=== PATIENT | female | born 1990 | race Caucasian/White ===

== ENCOUNTER 2023-01-26 13:54 | Outpatient (OUT) | payer OTHER, SELFPAY ==
[2023-01-26 14:52] LABS: HCG Quantitative 267 mIU/mL
== END 2023-01-26 13:55 | disposition home or self-care (01) ==
LOC: LAB 14:00
PROVIDERS: Visit Provider Obstetrics & Gynecology
DX: N92.6 Irregular menstruation, unspecified (principal)
CPT/HCPCS: 36415; 84702

== ENCOUNTER 2023-03-02 12:31 | Outpatient (OUT) | payer OTHER, SELFPAY ==
--- NOTE | 2023-03-02 12:40 | US_ITS ---
The [address] [address] Patient Name: CARMEN DE LA CRUZ MRN: [id number] date: 1990 Sex: F Assigned Patient Location: US Current Patient Location: US Accession/Order Number: [id number] Exam Date: 03/02/2023 12:40 Report Date: 03/02/2023 15:26 At the request of: EDGAR FERRELL Procedure: US OB transvaginal EXAMINATION: US OB transvaginal HISTORY: MISSED MENSES COMPARISON: No relevant comparison available. FINDINGS: GESTATIONAL SAC: Present and normal appearing. YOLK SAC: Present and normal appearing. POLE: Present and normal appearing. CARDIAC: Present. UTERUS: Normal size and appearance. OVARIES: Right: Normal. Left: Not seen. CERVIX: 4.1 cm in length and closed. CUL-DE-SAC: Normal. OTHER: None. AGE BY LMP: 8 weeks 1 day PHILIP BY LMP: 10/11/2023 AGE BY US CRL: 9 weeks 4 days PHILIP BY US CRL: 10/01/2023 US/US OB transvaginal IMPRESSION: 1. Single live intrauterine . Electronically authenticated by: TUSHAR WHITTAKER Date: 03/02/2023 15:26
== END 2023-03-02 12:32 | disposition home or self-care (01) ==
LOC: US 12:32
PROVIDERS: Visit Provider Obstetrics & Gynecology
DX: Z34.91 Encounter for supervision of normal pregnancy, unspecified, first trimester (principal); N92.6 Irregular menstruation, unspecified
CPT/HCPCS: 76817

== ENCOUNTER 2023-03-10 09:41 | Outpatient (OUT) | payer OTHER, SELFPAY ==
[2023-03-10 10:11] LABS: Estimated Average Glucose 91 mg/dL; Glycohemoglobin A1C 4.8 % (4.5-6.2)
[2023-03-10 10:33] LABS: Basophils Percent Auto 0.3 % (0.2-2.0); Eosinophils Absolute Auto 0.1 10^3/uL (0.0-0.7); Eosinophils Percent Auto 1.3 % (0.9-7.0); Hematocrit 39.1 % (36.0-48.0); Hemoglobin 12.9 g/dL (12.0-16.0); Immature Granulocytes Abs Auto 0.03 10^3/uL (0.00-0.03); Immature Granulocytes Pct Auto 0.4 % (0.0-0.5); Lymphocytes Absolute Auto 1.9 10^3/uL (1.2-3.8); Lymphocytes Percent Auto 24.3 % (20.5-60.0); Mean Corpuscular Hemoglobin 29.1 pg (26.7-34.0); Mean Corpuscular Volume 88.3 fL (81.0-99.0); Mean Platelet Volume 10.8 fL (9.5-13.5); Monocytes Absolute Auto 0.5 10^3/uL (0.3-0.8); Monocytes Percent Auto 6.6 % (1.7-12.0); Neutrophils Absolute Auto 5.3 10^3/uL (1.4-6.5); Neutrophils Percent Auto 67.1 % (43.0-75.0); Platelet Count 214 10^3/uL (150-450); Red Blood Count 4.43 10^6/uL (4.20-5.40); Red Cell Distribution Width 13.5 % (11.0-15.0); White Blood Count 7.9 10^3/uL (4.0-11.0)
[2023-03-10 10:36] LABS: Thyroid Stimulating Hormone 0.546 uIU/mL (0.358-3.740)
[2023-03-11 05:07] LABS: HCV Ab Non Reactive (Non Reactive); HIV Ab/p24 Ag Screen Non Reactive (Non Reactive); Rubella Antibodies, IgG 2.69 index (Immune >0.99)
[2023-03-11 06:12] LABS: HBsAg Screen Negative (Negative)
[2023-03-11 10:08] LABS: Rapid Plasma Reagin, Quant Non Reactive (NonRea<1:1)
== END 2023-03-10 09:42 | disposition home or self-care (01) ==
LOC: LAB 09:41
PROVIDERS: Visit Provider Obstetrics & Gynecology
DX: N92.6 Irregular menstruation, unspecified (principal)
CPT/HCPCS: 36415; 82306; 83036; 84443; 85025; 86592; 86762; 86803; 86850; 86900; 86901; 87086; 87150; 87186; 87340; 87389

== ENCOUNTER 2023-03-17 08:57 | Outpatient (OUT) | payer OTHER, SELFPAY | END 2023-03-17 08:58 | disposition home or self-care (01) | LOC: LAB 08:57 | PROVIDERS: Visit Provider Obstetrics & Gynecology | DX: N92.6 Irregular menstruation, unspecified (principal) | CPT/HCPCS: 87086 ==

== ENCOUNTER 2023-04-03 11:58 | Outpatient (OUT) | payer OTHER, SELFPAY ==
[2023-04-06 12:10] LABS: Calcitriol(1,25 di-OH Vit D) 88.7 pg/mL (24.8-81.5)
== END 2023-04-03 11:59 | disposition home or self-care (01) ==
LOC: LAB 12:00
PROVIDERS: Visit Provider Obstetrics & Gynecology
DX: Z01.419 Encounter for gynecological examination (general) (routine) without abnormal findings (principal); D50.8 Other iron deficiency anemias
CPT/HCPCS: 36415; 82652; 82728; 87624; G0145

== ENCOUNTER 2023-04-03 20:37 | Outpatient (REF) | payer OTHER, SELFPAY ==
[2023-04-06 15:10] LABS: Age Gdln ACOG Testing Note (.); HPV Aptima Negative (Negative); IGP, Aptima HPV, rfx 16/18,45 Note (.)
== END 2023-04-03 20:38 | disposition home or self-care (01) ==
LOC: LAB 20:37
PROVIDERS: Visit Provider Obstetrics & Gynecology
DX: Z01.419 Encounter for gynecological examination (general) (routine) without abnormal findings (principal)
CPT/HCPCS: G0145

== ENCOUNTER 2023-04-28 13:17 | Outpatient (OUT) | payer OTHER, SELFPAY | END 2023-04-28 13:18 | disposition home or self-care (01) | LOC: LAB 13:17 | PROVIDERS: Visit Provider Obstetrics & Gynecology | DX: D50.8 Other iron deficiency anemias (principal) | CPT/HCPCS: 36415; 82652 ==

== ENCOUNTER 2023-05-15 10:17 | Outpatient (OUT) | payer OTHER, SELFPAY ==
--- NOTE | 2023-05-15 10:20 | US_ITS ---
[address] [address] Patient Name: CARMEN DE LA CRUZ MRN: [id number] date: 1990 Sex: F Assigned Patient Location: US Current Patient Location: US Accession/Order Number: [id number] Exam Date: 05/15/2023 10:21 Report Date: 05/15/2023 17:14 At the request of: EDGAR FERRELL Procedure: US OB anatomy EXAMINATION: US OB anatomy, US OB cervical length HISTORY: ANATOMY COMPARISON: No relevant comparison available. TECHNIQUE: Transabdominal sonographic examination was performed for obstetrical and evaluation. FINDINGS: Number: 1 Heart Rate: 143.0 bpm H.B. /min Amniotic Fluid Volume: Subjectively normal position: Cephalic presentation, longitudinal lie Placental Location: ANTERIOR, the placental edge is 7.1 cm from the internal os Cervix Length: 3.7 cm, small amount of fluid in the endocervical canal measuring up to 2 mm Normal anatomy: Lateral ventricles, cerebellum, posterior fossa, nose, lips, orbits, four-chamber heart, RVOT, LVOT, diaphragm, stomach, kidneys, abdominal portions, bladder, umbilical arteries, spine, extremities, 2 umbilical arteries BIOMETRY: BPD: 4.5 cm 19 weeks 4 days , 25% HC: 17.6 cm 20 weeks 1 days, 41% AC: 14.5 cm 19 weeks 6 days, 34% FL: 3.0 cm 19 weeks 3 days , 17% EFW:305.8 grams; 11 ounces, 21% FL/AC: 20.9 FL/BPD: 67.6 HC/AC: 1.2 GESTATIONAL AGE: Age by EDC: 20 weeks 1 days Age by current US: 19 weeks 5 days PHILIP by current US: 10/04/2023 PHILIP by EDC: 10/01/2023 US/US OB anatomy IMPRESSION: Normal anatomy scan Cervix measures 3.7 cm in length with a small amount of fluid in the endocervical canal *Reference: [employer] Practice Guideline for the performance of Obstetric Ultrasound Examinations, April 09, 2007. Electronically authenticated by: MARTY KO Date: 05/15/2023 17:14
--- NOTE | 2023-05-15 10:20 | US_ITS ---
[address] [address] Patient Name: CARMEN DE LA CRUZ MRN: [id number] date: 1990 Sex: F Assigned Patient Location: US Current Patient Location: Accession/Order Number: [id number] Exam Date: 05/15/2023 10:20 Report Date: 05/15/2023 17:14 At the request of: EDGAR FERRELL Procedure: US OB cervical length EXAMINATION: US OB anatomy, US OB cervical length HISTORY: ANATOMY COMPARISON: No relevant comparison available. TECHNIQUE: Transabdominal sonographic examination was performed for obstetrical and evaluation. FINDINGS: Number: 1 Heart Rate: 143.0 bpm H.B. /min Amniotic Fluid Volume: Subjectively normal position: Cephalic presentation, longitudinal lie Placental Location: ANTERIOR, the placental edge is 7.1 cm from the internal os Cervix Length: 3.7 cm, small amount of fluid in the endocervical canal measuring up to 2 mm Normal anatomy: Lateral ventricles, cerebellum, posterior fossa, nose, lips, orbits, four-chamber heart, RVOT, LVOT, diaphragm, stomach, kidneys, abdominal portions, bladder, umbilical arteries, spine, extremities, 2 umbilical arteries BIOMETRY: BPD: 4.5 cm 19 weeks 4 days , 25% HC: 17.6 cm 20 weeks 1 days, 41% AC: 14.5 cm 19 weeks 6 days, 34% FL: 3.0 cm 19 weeks 3 days , 17% EFW:305.8 grams; 11 ounces, 21% FL/AC: 20.9 FL/BPD: 67.6 HC/AC: 1.2 GESTATIONAL AGE: Age by EDC: 20 weeks 1 days Age by current US: 19 weeks 5 days PHILIP by current US: 10/04/2023 PHILIP by EDC: 10/01/2023 US/US OB cervical length IMPRESSION: Normal anatomy scan Cervix measures 3.7 cm in length with a small amount of fluid in the endocervical canal *Reference: [employer] Practice Guideline for the performance of Obstetric Ultrasound Examinations, April 09, 2007. Electronically authenticated by: MARTY KO Date: 05/15/2023 17:14
== END 2023-05-15 10:18 | disposition home or self-care (01) ==
LOC: US 10:18
PROVIDERS: Visit Provider Obstetrics & Gynecology
DX: Z34.92 Encounter for supervision of normal pregnancy, unspecified, second trimester (principal); Z3A.20 20 weeks gestation of pregnancy
CPT/HCPCS: 76805; 76817

== ENCOUNTER 2023-06-19 09:09 | Outpatient (OUT) | payer OTHER, SELFPAY ==
--- NOTE | 2023-06-19 09:10 | US_ITS ---
[address] [address] Patient Name: CRAMEN DE LA CRUZ MRN: [id number] date: 1990 Sex: F Assigned Patient Location: US Current Patient Location: US Accession/Order Number: [id number] Exam Date: 06/19/2023 09:11 Report Date: 06/19/2023 10:35 At the request of: EDGAR FERRELL Procedure: US OB growth PROCEDURE: US OB growth HISTORY: SIZE INCONSISTENT WITH DATES COMPARISON: None. TECHNIQUE: Transabdominal sonographic examination was performed for obstetrical and evaluation. FINDINGS: Number: 1 Heart Rate: 145.0 bpm H.B. /min Amniotic Fluid Volume: 15.7 cm, normal. Largest fluid pocket 4.2 cm Placental Location: Anterior Cervix Length: Not measured BIOMETRY: BPD: 6.0 cm 24 weeks 3 days , 17% HC: 23.0 cm 25 weeks 0 days , 24% AC:20.1 cm 24 weeks 5 days , 29% FL: 4.4 cm 24 weeks 4 days , 19% EFW: 720.6 grams , 1 lb. 9 oz., 21% FL/AC: 21.9 FL/BPD: 73.9 HC/AC: 1.1 GESTATIONAL AGE: Age by EDC: 25 weeks 1 days PHILIP by EDC: 10/01/2023 Ultrasound Age: 24 weeks 5 days Ultrasound PHILIP: 10/04/2023 US/US OB growth IMPRESSION: Normal interval growth *Reference: [employer] Practice Guideline for the performance of Obstetric Ultrasound Examinations, April 09, 2007. Electronically authenticated by: MARTY KO Date: 06/19/2023 10:35
== END 2023-06-19 09:10 | disposition home or self-care (01) ==
LOC: US 09:09
PROVIDERS: Visit Provider Obstetrics & Gynecology
DX: O26.849 Uterine size-date discrepancy, unspecified trimester (principal); Z3A.25 25 weeks gestation of pregnancy
CPT/HCPCS: 76816

== ENCOUNTER 2023-06-28 17:10 | Observation (INO) | payer OTHER, SELFPAY ==
[2023-06-28 17:25] VITALS: BP 135/80; PULSE 107; RESP 18; TEMP 37.1
[2023-06-28 17:45] LABS: Bilirubin Urine NEGATIVE (NEGATIVE); Blood Urine NEGATIVE (NEGATIVE); Clarity Urine CLEAR (CLEAR); Color Urine LT. YELLOW (YELLOW); Glucose Urine UA NEGATIVE (NEGATIVE); Ketones Urine >=80 mg/dL (NEGATIVE); Leukocyte Esterase Urine NEGATIVE (NEGATIVE); Nitrite Urine NEGATIVE (NEGATIVE); Protein Urine NEGATIVE (NEG/TRACE); Urobilinogen Urine 0.2 EU/dL (0.2-1.0)
[2023-06-28 17:51] LABS: Urine Microscopic Indicated NO
[2023-06-28 18:35] LABS: Basophils Percent Auto 0.2 % (0.2-2.0); Eosinophils Absolute Auto 0.2 10^3/uL (0.0-0.7); Eosinophils Percent Auto 1.4 % (0.9-7.0); Hematocrit 33.9 % (36.0-48.0); Hemoglobin 11.1 g/dL (12.0-16.0); Immature Granulocytes Abs Auto 0.05 10^3/uL (0.00-0.03); Immature Granulocytes Pct Auto 0.4 % (0.0-0.5); Lymphocytes Absolute Auto 1.5 10^3/uL (1.2-3.8); Lymphocytes Percent Auto 10.5 % (20.5-60.0); Mean Corpuscular HGB Conc 32.7 g/dL (29.9-35.2); Mean Corpuscular Hemoglobin 29.1 pg (26.7-34.0); Mean Platelet Volume 11.4 fL (9.5-13.5); Monocytes Absolute Auto 0.9 10^3/uL (0.3-0.8); Monocytes Percent Auto 6.6 % (1.7-12.0); Neutrophils Absolute Auto 11.2 10^3/uL (1.4-6.5); Neutrophils Percent Auto 80.9 % (43.0-75.0); Platelet Count 184 10^3/uL (150-450); Red Blood Count 3.81 10^6/uL (4.20-5.40); Red Cell Distribution Width 13.1 % (11.0-15.0); White Blood Count 13.9 10^3/uL (4.0-11.0)
[2023-06-28] MEDS: 0.9 % SODIUM CHLORIDE 500 ML IV (18:42)
[2023-06-28] MEDS: ONDANSETRON PF 4 MG/2 ML VIAL IV (18:44)
[2023-06-28 18:49] LABS: Alanine Aminotransferase 20 U/L (14-59); Albumin Globulin Ratio 0.7; Albumin Level 2.5 g/dL (3.4-5.0); Alkaline Phosphatase 104 U/L (46-116); Anion Gap 13.6; Aspartate Amino Transferase 17 U/L (15-37); Bilirubin Total 0.6 mg/dL (0.2-1.0); Calcium 8.9 mg/dL (8.5-10.1); Carbon Dioxide 23.4 mmol/L (21.0-32.0); Chloride 105 mmol/L (98-107); Estimated GFR (African America >60 (>=60); Estimated GFR (Non-African Ame >60 (>=60); Globulin 3.8 g/dL; Glucose 84 mg/dL (74-106); Sodium 139 mmol/L (136-145); Total Protein 6.3 g/dL (6.4-8.2)
[2023-06-28] MEDS: HYDROCODONE/ACET 5-325 MG TABLET 2 TAB PO (18:55)
[2023-06-28] MEDS: DOCUSATE SODIUM 100 MG CAPSULE PO (18:55)
[2023-06-28] MEDS: 0.9 % SODIUM CHLORIDE 1,000 ML 150 ML IV (19:15)
[2023-06-28] MEDS: POTASSIUM CHLORIDE 10 MEQ ER TABLET 40 MEQ PO (20:33)
[2023-06-28] MEDS: POTASSIUM CHLORIDE IN WATER 10 MEQ/100 ML PIGGYBACK 100 MEQ IV ×3 (20:33→23:37)
[2023-06-28 22:34] VITALS: BP 117/64; PULSE 88
[2023-06-28 22:43] VITALS: RESP 16
[2023-06-29] VITALS (11 sets, daily range): BP systolic 103–138; BP diastolic 61–82; PULSE 86–124; RESP 18–32; TEMP 35.9–36.7; O2SAT 92–97
--- NOTE | 2023-06-29 | FL_ITS ---
[address] [address] Patient Name: CARMEN DE LA CRUZ MRN: [id number] date: 1990 Sex: F Assigned Patient Location: [facility] Current Patient Location: Accession/Order Number: [id number] Exam Date: 06/29/2023 16:30 Report Date: 06/30/2023 11:16 At the request of: EDGAR FERRELL Procedure: FL fluoroscopy <1hr NON-READ EXAM: FL fluoroscopy <1hr NON-READ HISTORY: TECHNIQUE: FINDINGS: Please see Operative Report. Electronically authenticated by: RADIOLOGIST NO Date: 06/30/2023 11:16
[2023-06-29] MEDS: POTASSIUM CHLORIDE IN WATER 10 MEQ/100 ML PIGGYBACK 100 MEQ IV (00:37)
[2023-06-29] MEDS: ONDANSETRON PF 4 MG/2 ML VIAL IV (01:11)
[2023-06-29] MEDS: HYDROCODONE/ACET 5-325 MG TABLET 1 TAB PO ×3 (01:11→13:30)
[2023-06-29] MEDS: 0.9 % SODIUM CHLORIDE 1,000 ML 150 ML IV ×2 (02:01→08:38)
[2023-06-29] MEDS: HYDROMORPHONE HCL 0.5 MG/0.5 ML SYRINGE 1 MG IV (02:27)
--- NOTE | 2023-06-29 07:28 | W.PC.ACHO ---
Registration Status: REG OUT Primary Language: Preferred Language: Active Medications Generic Name Dose Route Start Last Admin Trade Name Freq PRN Reason Stop Dose Admin Hydrocodone Bitart/Acetaminophen 1 tab 06/28/23 18:33 06/29/23 06:32 Hydrocodone/Acet 5-325 Mg Tablet PO 1 tab Q6H PRN Administration Pain Docusate Sodium 100 mg 06/28/23 18:04 06/28/23 18:55 Docusate Sodium 100 Mg Capsule PO 100 mg BID PRN Administration Constipation Hydromorphone HCl 1 mg 06/29/23 02:18 06/29/23 02:27 Hydromorphone Hcl 0.5 Mg/0.5 Ml Syringe IV 1 mg Q3H PRN Administration Pain Scale 7-10 Sodium Chloride 1,000 mls @ 150 mls/hr 06/28/23 18:00 06/29/23 02:01 Sodium Chloride 0.9% 1,000 Ml IV 150 mls/hr .[id number] NAY Administration Ondansetron HCl 4 mg 06/28/23 18:04 06/29/23 01:11 Ondansetron Pf 4 Mg/2 Ml Vial IV 4 mg Q6H PRN Administration Nausea Diet Category Date Time Status Regular Consistency Diet Diet 06/28/23 17:59 Active Consults Category Date Time Status Consult to Urology Routine Cons 06/29/23 08:00 Ordered IV Insertion/Site Date of IV Line Insertion [20g 06/28/23 left Antecubital] IV Insertion Time [20g left 18:35 Antecubital] Respiratory Oxygen Delivery Method Room Air Cardiology Heart Sounds Strong,Regular Renal Bladder Pattern Continent
--- NOTE | 2023-06-29 08:00 | US_ITS ---
The [address] [address] Patient Name: CARMEN DE LA CRUZ MRN: [id number] date: 1990 Sex: F Assigned Patient Location: [facility] Current Patient Location: [facility] Accession/Order Number: [id number] Exam Date: 06/29/2023 07:25 Report Date: 06/29/2023 10:48 At the request of: EDGAR FERRELL Procedure: US renal BI EXAMINATION: US renal BI HISTORY: Kidney stones ; right flank pain; 26 weeks COMPARISON: No relevant comparison available. TECHNIQUE: Ultrasound examination was performed of the kidneys and urinary bladder. FINDINGS: RIGHT KIDNEY: Dilated renal pelvis and calyces. 5 mm nonobstructing stone within inferior pole. Kidney: 13.2 x 6.7 x 6.3 cm LEFT KIDNEY: Borderline prominent renal pelvis without significant dilation of the calyces. No mass or calculi. Normal renal cortical parenchymal echogenicity. Color Doppler demonstrates blood flow within the kidney. Kidney: 11.8 x 5.3 x 6.1 cm BLADDER: No visible wall thickening, mass, or calculi. URETERAL JETS: Present on left; no right ureteral jet. US/US renal BI IMPRESSION: 1. Moderate right hydronephrosis and no right ureteral jet within the urinary bladder during 5 minutes of observation; obstructing ureteral stone versus hydronephrosis secondary to . Electronically authenticated by: TUSHAR WHITTAKER Date: 06/29/2023 10:48
--- OUTSIDE RECORDS SUMMARY | 2023-06-29 10:09 | XMS_ITS | CCD ---
Author Name Unknown Address [address] [place] [id number] Organization [facility] Care Team Providers Care [employer] Worker Name Role Phone DO Sallie Magaña Primary Care Provider DO Sallie Magaña Attending Provider Hilario Reynolds Unavailable DO Sallie Magaña Primary Care Provider MD Hilario Reynolds Attending Provider DO Sarmad Luque Emergency Provider [phone] DO Sallie Magaña Primary Care Provider [phone] DO Sallie Magaña Attending Provider DO Sallie Magaña Primary Care Provider DO Sallie Magaña Attending Provider MD Latrice Sepulveda Attending Provider BRANDON CAMARGO Attending Unavailable DO Emerald Martinez Admit Provider DO Emerald Martinez Attending Provider Sallie Magaña Primary Care Unavailable Latrice Sepulveda Admitting Unavailable Latrice Sepulveda Attending Unavailable Sallie Magaña Primary Care Unavailable Sallie Magaña Attending Unavailable Sallie Magaña Admitting Unavailable Hilario Reynolds Admitting Unavailable Hilario Reynolds Attending Unavailable Sallie Magaña Primary Care Unavailable Sallie Magaña Primary Care Unavailable Sallie Magaña Attending Unavailable Sallie Magaña Admitting Unavailable Sallie Magaña Primary Care Unavailable Emerald Martinez Admitting Unavailable Emerald Martinez Attending Unavailable Sallie Magaña Primary Care Unavailable Sarmad Luque Admitting Unavailable Sarmad Luque Attending Unavailable Allergies Allergy Classification Reported Allergen(s) Allergy Type Date of Onset Reaction(s) Facility (7 sources) Dicyclomine; Translations: [dicyclomine] Drug Allergy 0 Migraine, Unknown [facility] (6 sources) Fish Oils; Translations: [fish oil] Drug Allergy 0 Hives [facility] (6 sources) Gluten; Translations: [gluten] Propensity to adverse reactions 0 Nausea [facility] (1 source) DHA Propensity to adverse reactions Unknown [employer] Other Medications Current Medications Medication Drug Class(es) Dates Sig (Normalized) Sig (Original) 3 ML semaglutide 1.34 MG/ML Pen Injector [Ozempic] (1 source) Start: 11-08-2022 inject 0.5 mg by subcutaneous injection every week Ozempic (1 MG/DOSE) 4 MG/3ML 36 clicks/ 0.5 mg as directed Subcutaneous weekly for 60 days November, Active Albuterol (5 sources) beta2-Adrenergic Agonist Start: 09-21-2018 Albuterol Sulfate Active 2 INH INHALATION EVERY 4-6 HOURS September 20, 2018 11:00pm Start: 09-21-2018 Albuterol Sulf ate Active 2 INH INHALATION EVERY 4-6 HOURS September 21, 2018 12:00am cholecalciferol 0.025 mg oral capsule (5 sources) Vitamin D Start: 01-24-2023 take 1 capsule by mouth once daily Cholecalciferol (Vitamin D3) (Vitamin D3) 25 mcg (1,000 unit) Capsule Active 25 MCG PO Daily January 23, 2023 11:00pm take 1 tablet by sary th every twenty-four hours Vitamin D 50 MCG (2000 UT) 1 tablet Orally Once a day Active Semaglutide (4 sources) Start: 01-24-2023 inject 1 mg by subcutaneous injection every week Semaglutide (Ozempic) 1 mg/dose (4 mg/3 mL) pen injector Active 1 MG SUBCUT every week January 23, 2023 11:00pm Start: 01-24-2023 inject 1 mg by subcu taneous injection every week Semaglutide (Ozempic) 1 mg/dose (4 mg/3 mL) pen injector Active 1 MG SUBCUT every week January 24, 2023 12:00am Completed/Discontinued Medications Medication Drug Class(es) Dates Sig (Normalized) Sig (Original) ibuprofen 800 mg oral tablet (10 sources) Nonsteroidal Anti-inflammatory Drug Start: 05-05-2019 take 400 mg by mouth three times daily Ibuprofen Active 400 MG PO Three times daily May 05, 2019 4:22am Start: 09-21-2018 End: 05-05-2019 take 800 mg by mouth three times daily Ibuprofen Discontinued 800 MG PO Three times daily September 20, 2018 11:00pm May 05, 2019 4:22am Niacin (1 source) Nicotinic Acid Niacin Not-Takin g oseltamivir 75 mg oral capsule (5 sources) Neuraminidase Inhibitor Start: 09-22-19 End: 09-29-19 take 1 capsule by mouth once daily Oseltamivir (Tamiflu) 75 mg capsule Discontinued 75 MG PO Daily 7 September 20, 2018 11:00pm September 27, 2018 11:03pm sertraline 50 mg oral tablet (5 sources) Serotonin Reuptake Inhibitor Start: 05-01-20 End: 01-25-20 take 1 tablet by mouth once daily Sertraline (Zoloft) 50 mg Tablet Discontinued 50 MG PO Daily April 30, 2020 11:00pm January 24, 2023 9:15am Problems Active Problems Problem Classification Problem Date Documented Date Episodic/Chronic Anxiety disorders (2 sources) Anxiety; Translations: [Anxiety disorder, unspecified] Chronic Asthma (2 sources) Asthma; Translations: [Unspecified asthma, uncomplicated] Chronic Calculus of urinary tract (9 sources) Kidney stone; Translations: [Calculus of kidney] Onset: 06-26-2023 Episodic Disorders of lipid metabolism (2 sources) Mixed hyperlipidemia; Translations: [Mixed hyperlipidemia] Chronic E Codes: Fall (5 sources) Fall; Translations: [Unspecified fall, initial encounter] 02-13-2019 Episodic Nutritional deficiencies (1 source) Vitamin D deficiency, unspecified; Translations: [Vitamin D deficiency, unspecified] Onset: 06-06-2023 Chronic Other diseases of kidney and ureters (2 sources) Hydronephrosis; Translations: [Hydronephrosis with renal and ureteral calculous obstruction] 05-05-2019 Episodic Other diseases of kidney and ureters (4 sources) Hydronephrosis with renal and ureteral calculous obstruction; Translations: [Hydronephrosis with urinary obstruction due to ureteral calculus] 05-05-2019 Episodic Other diseases of kidney and ureters (2 sources) Unspecified hydronephrosis; Translations: [Hydronephrosis] Onset: 06-26-2023 06-28-2023 Episodic Other and delivery including normal (4 sources) test positive; Translations: [Encounter for test, result positive] 01-24-2023 Episodic Residual codes; unclassified (5 sources) Pain; Translations: [Pain, unspecified] 05-05-2019 Episodic Residual codes; unclassified (1 source) Gestation period, 26 weeks; Translations: [26 weeks gestation of ] 06-27-2023 Episodic Residual codes; unclassified (1 source) 26 weeks gestation of ; Translations: [ state, incidental] 06-28-2023 Episodic Superficial injury; contusion (10 sources) Contusion of foot; Translations: [Contusion of unspecified foot, initial encounter] 05-01-2020 Episodic Unclassified (1 source) 26 weeks gestation of ; Translations: [26 weeks gestation of ] Onset: 06-26-2023 Unclassified (1 source) Dietary counseling and surveillance; Translations: [Dietary counseling and surveillance] Onset: 12-20-2022 Unclassified (1 source) Encounter for general adult medical examination without abnormal findings; Translations: [Encounter for general adult medical examination without abnormal findings] Onset: 10-27-2022 Urinary tract infections (5 sources) Urinary tract infectious disease; Translations: [Urinary tract infection, site not specified] 05-05-2019 Episodic Past or Other Problems Problem Classification Problem Date Documented Date Episodic/Chronic Abdominal pain (1 source) Unspecified abdominal pain; Translations: [Unspecified abdominal pain] Onset: 01-24-2023 Episodic Other hematologic conditions (1 source) Elevated erythrocyte sedimentation rate; Translations: [Elevated erythrocyte sedimentation rate] Onset: 10-27-2022 Episodic Other nutritional; endocrine; and metabolic disorders (2 sources) Abnormal weight gain; Translations: [Abnormal weight gain] Onset: 10-27-2022 Episodic Results Test Name Value Interpretation Reference Range Facility Consultation Noteon 12-20-20 23 Consultation Note [id number] Normal [facility] Complete Blood Count Auto Di ffon 06-27-2023 Basophils (Bld) [#/Vol] 0.0 10*3/uL Normal 0.0-0.2 [facility] Comment on above: Result Comment: PERF ORMED BY: [facility] [address] [place] [address] PATHOLOGIST MONITORING MANAGER JERRY CASTRO M.D. Performed By: #### C SAPPHIRE, CMP ####[place] [id number] [facility] Basophils/100 WBC (Bld) 0.2 % Normal . [facility] Comment on above: Performed By: #### C SAPPHIRE, CMP ####[place] [id number] [facility] Eosinophils (Bld) [#/Vol] 0.0 10*3/uL Normal 0.0-0.45 [facility] Comment on above: Performed By: #### C SAPPHIRE, CMP ####[place] [id number] [facility] Eosinophils/100 WBC (Bld) 0.2 % Normal . [facility] Comment on above: Performed By: #### C SAPPHIRE, CMP ####[place] [id number] [facility] Erythrocyte distribution width (RBC) [Ratio] 13.4 % Normal 11.9-15.3 [facility] Comment on above: Performed By: #### C BC, CMP ####[place] [id number] [facility] Hematocrit (Bld) [Volume fraction] 33.5 % Low 34.0-46.4 [facility] Comment on above: Performed By: #### C BC, CMP ####[place] [id number] [facility] Hemoglobin (Bld) [Mass/Vol] 11.3 g/dL Low 11.8-15.4 [facility] Comment on above: Performed By: #### C BC, CMP ####[address] Lymphocytes (Bld) [#/Vol] 1.1 10*3/uL Normal 1.00-4.8 [facility] Comment on above: Performed By: #### C BC, CMP ####[place] [id number] [facility] Lymphocytes/100 WBC (Bld) 8.3 % Normal . [facility] Comment on above: Performed By: #### C BC, CMP ####[address] MCH (RBC) [Entitic mass] 29.0 pg Normal 24.7-34.3 [facility] Comment on above: Performed By: #### C BC, CMP ####[address] MCV (RBC) [Entitic vol] 86.2 fL Normal 80-100 [facility] Comment on above: Performed By: #### C BC, CMP ####[address] Mean Corpuscular HGB Conc 33.7 g/dL Normal 32.0-35.0 [facility] Comment on above: Performed By: #### C BC, CMP ####[address] Monocytes (Bld) [#/Vol] 0.6 10*3/uL Normal 0.0-0.8 [facility] Comment on above: Performed By: #### C BC, CMP ####[place] [id number] [facility] Monocytes/100 WBC (Bld) 4.2 % Normal . [facility] Comment on above: Performed By: #### C BC, CMP ####[address] Neutrophils (Bld) [#/Vol] 11.9 10*3/uL High 1.8-7.7 [facility] Comment on above: Performed By: #### C SAPPHIRE, CMP ####[place] [id number] [facility] Neutrophils/100 WBC (Bld) 87.1 % Normal . [facility] Comment on above: Performed By: #### C BC, CMP ####[address] [address] [facility] NRBC% 0.1 /100{WBC} Normal 0-0.5 [facility] Comment on above: Performed By: #### C SAPPHIRE, CMP ####[address] [address] [facility] Platelet mean volume (Bld) [Entitic vol] 9.8 fL Normal 6.3-10.7 [facility] Comment on above: Performed By: #### C SAPPHIRE, CMP ####[place] [id number] [facility] Platelets (Bld) [#/Vol] 174 10*3/uL Normal 150-450 [facility] Comment on above: Performed By: #### C SAPPHIER, CMP ####[place] [id number] [facility] RBC (Bld) [#/Vol] 3.89 10*6/uL Normal 3.60-5.00 [facility] Comment on above: Performed By: #### C SAPPHIRE, CMP ####[address] [address] [facility] WBC (Bld) [#/Vol] 13.6 10*3/uL High 3.8-11.6 [facility] Comment on above: Performed By: #### C SAPPHIRE, CMP ####[place] [id number] [facility] Comprehensive Metabolic Pane mauricio 06-27-2023 Albumin [Mass/Vol] 3.4 g/dL Low 3.5-5.7 [facility] Comment on above: Performed By: #### C BC, CMP ####[place] [id number] [facility] Albumin/Globulin [Mass ratio] 1.6 {ratio} Normal [facility] Comment on above: Performed By: #### C BC, CMP ####[place] [id number] [place] [address] [facility] ALP [Catalytic activity/Vol] 88 U/L Normal 34-104 [facility] Comment on above: Performed By: #### C BC, CMP ####[place] [id number] [place] [address] [facility] ALT [Catalytic activity/Vol] 17 U/L Normal 7-52 [facility] Comment on above: Performed By: #### C BC, CMP ####[place] [id number] [place] [address] [facility] Anion gap [Moles/Vol] 12.5 mmol/L Normal 6.0-15.0 [facility] Comment on above: Performed By: #### C BC, CMP ####[address] [address] [facility] AST [Catalytic activity/Vol] 14 U/L Normal 13-39 [facility] Comment on above: Performed By: #### C BC, CMP ####[address] [address] [facility] Bilirubin [Mass/Vol] 0.3 mg/dL Normal 0.3-1.0 [facility] Comment on above: Performed By: #### C BC, CMP ####[address] [address] [facility] Calcium [Mass/Vol] 8.2 mg/dL Low 8.6-10.3 [facility] Comment on above: Performed By: #### C BC, CMP ####[address] [address] [facility] Chloride [Moles/Vol] 105 mmol/L Normal 98-107 [facility] Comment on above: Performed By: #### C BC, CMP ####[address] [address] [facility] CO2 [Moles/Vol] 23.8 mmol/L Normal 21.0-31.0 [facility] Comment on above: Performed By: #### C BC, CMP ####[place] [address] [place] [id number] [facility] Creatinine [Mass/Vol] 0.52 mg/dL Low 0.60-1.20 [facility] Comment on above: Performed By: #### C BC, CMP ####[place] [id number] [place] [id number] [place] Creatinine Clr Calc Pharmacy 138.60 [facility] Comment on above: Result Comment: PERF ORMED BY: [facility] [address] [place] [address] PATHOLOGIST MONITORING MANAGER JERRY CASTRO M.D. Performed By: #### C BC, CMP ####[place] [id number] [place] [id number] [facility] GFR/1.73 sq M.predicted MDRD (S/P/Bld) [Vol rate/Area] mL/min/{1.73_m2} [facility] Comment on above: Performed By: #### C BC, CMP ####[place] [id number] [facility] Globulin (S) [Mass/Vol] 2.1 g/dL [facility] Comment on above: Performed By: #### C BC, CMP ####[place] [id number] [facility] Glucose [Mass/Vol] 124 mg/dL High 70-100 [facility] Comment on above: Result Comment: [place] Glucose Reference Range is dependent on time and content of last meal. Glucose of more than 200 mg/dL in a nonstressed, ambulatory subject supports the diagnosis of Diabetes Mellitus. ADA recommended reference range Performed By: #### C BC, CMP ####[place] [id number] [facility] Potassium [Moles/Vol] 3.3 mmol/L Low 3.5-5.1 [facility] Comment on above: Performed By: #### C BC, CMP ####[address] [address] [facility] Protein [Mass/Vol] 5.5 g/dL Low 6.4-8.9 [facility] Comment on above: Performed By: #### C BC, CMP ####[place] [address] [place] [id number] [facility] Sodium [Moles/Vol] 138 mmol/L Normal 136-145 [facility] Comment on above: Performed By: #### C BC, CMP ####[facility] [place] [phone] [facility] Urea nitrogen [Mass/Vol] 6 mg/dL Low 7-25 [facility] Comment on above: Performed By: #### C BC, CMP ####[facility] [place] [phone] [facility] US renal BIon 06-27-2023 US renal BI [facility] [address] [place] [address] [place] [address] Ultrasound Report Signed Patient: Elyssa Smith MR#: [id number] : 1990 Acct:[id number] Age/Sex: 33 / F ADM Date: 06/27/23 Loc: Room: [address] [place] [address] Type: ADM INOo Attending Dr: Emerald Martinez DO Ordering Provider: Emerald Martinez DO Date of Service: 06/26/23 US/US renal BI: back pain Copies to: Emerald Martinez DO BILATERAL RENAL AND BLADDER ULTRASOUND CLINICAL HISTORY: patient with right back pain. History of kidney stones. COMPARISON: 01/24/2023 Estimation of renal size is approximately 12.7 cm on the right and 11.41cm on the left. No shadowing calculi were identified. There is moderate right hydronephrosis. No hydronephrosis is seen on the left. No renal mass lesions were imaged. There is no perinephric fluid. The urinary bladder is not well distended with a volume of 30 mL. No contour or intraluminal abnormalities are seen. Only a left ureteral jet is seen. US/US renal BI IMPRESSION: MODERATE RIGHT HYDRONEPHROSIS. Impression dictated by: Kathleen Vaca M.D.06/27/2023 7:44 AM Dictation Location: [place] [address] Tech: Eryn Welsh Transcribed By: SILVINA 06/27/2344 Dictated By: Kathleen Vaca MD 06/27/2342 Signed By: 06/27/23743 Normal [facility] Alanine aminotransferase [En zymatic activity/volume] in Serum or PlasmaOrdered By: Emerald Martinez on 06-26-2023 ALT [Catalytic activity/Vol] 17 U/L 7-52 [facility] Albumin [Mass/volume] in Ser um or Plasma by Bromocresol green (BCG) dye binding methoOrdered By: Emerald Martinez on 06-26-2023 Albumin BCG dye [Mass/Vol] 3.4 g/dL 3.5-5.7 [facility] Alkaline phosphatase [Enzyma tic activity/volume] in Serum or PlasmaOrdered By: Emerald Martinez on 06-26-2023 ALP [Catalytic activity/Vol] 88 U/L 34-104 [facility] Amphetamine Screen Ql (U)Ord ered By: Emerald Martinez on 06-26-2023 Amphetamines Ql (U) Negative Negative [facility] Aspartate aminotransferase [ Enzymatic activity/volume] in Serum or PlasmaOrdered By: Emerald Martinez on 06-26-2023 AST [Catalytic activity/Vol] 14 U/L 13-39 [facility] Automated epithelial cells c ount in urine sediment (number/area)Ordered By: Emerald Martinez on 06-26-2023 Epithelial cells Auto (Urine sed) [#/Area] 10-19 [HPF] 0-2 [facility] Automated erythrocytes count in urine sediment (number/area)Ordered By: Emerald Martinez on 06-26-2023 RBC Auto (Urine sed) [#/Area] 10-19 [HPF] 0-4 [facility] Automated leukocytes count i n urine sediment (number/area)Ordered By: Emerald Martinez on 06-26-2023 WBC Auto (Urine sed) [#/Area] 0-1 [HPF] 0-4 [facility] Automated urine hyaline cast s count (number/volume)Ordered By: Emerald Martinez on 06-26-2023 Hyaline casts Auto (U) [#/Vol] None seen [LPF] 0-1 [facility] Barbiturates [Presence] in U rine by Screen methodOrdered By: Emerald Martinez on 06-26-2023 Barbiturates Screen Ql (U) Negative Negative [facility] Basophils Auto (Bld) [#/Vol] Ordered By: Emerald Martinez on 06-26-2023 Basophils (Bld) [#/Vol] 0.0 10*3/uL 0.0-0.2 [facility] Basophils/100 WBC Auto (Bld) Ordered By: Emerald Martinez on 06-26-2023 Basophils/100 WBC (Bld) 0.2 % . [facility] Benzodiazepines Screen Ql (U )Ordered By: Emerald Martinez on 06-26-2023 Benzodiazepines Ql (U) Negative Negative [facility] Benzoylecgonine [Presence] i n Urine by Screen methodOrdered By: Emerald Martinez on 06-26-2023 Benzoylecgonine Screen Ql (U) Negative Negative [facility] Bilirubin Test strip Ql (U)O rdered By: Emerald Martinez on 06-26-2023 Bilirubin Ql (U) Negative Negative [facility] Bilirubin.total [Mass/volume ] in Serum or PlasmaOrdered By: Emerald Martinez on 06-26-2023 Bilirubin [Mass/Vol] 0.3 mg/dL 0.3-1.0 [facility] Calcium [Mass/volume] in Ser um or PlasmaOrdered By: Emerald Martinez on 06-26-2023 Calcium [Mass/Vol] 8.2 mg/dL 8.6-10.3 [facility] Carbon dioxide, total [Moles /volume] in Serum or PlasmaOrdered By: Emerald Martinez on 06-26-2023 CO2 [Moles/Vol] 23.8 mmol/L 21.0-31.0 [facility] Chloride [Moles/volume] in S gris or PlasmaOrdered By: Emerald Martinez on 06-26-2023 Chloride [Moles/Vol] 105 mmol/L 98-107 [facility] Color Auto (U)Ordered By: Graciela horaciopati Martinez on 06-26-2023 Color (U) Yellow Yellow [facility] Creatinine [Mass/volume] in Serum or PlasmaOrdered By: Emerald Martinez on 06-26-2023 Creatinine [Mass/Vol] 0.52 mg/dL 0.60-1.20 [facility] Dipstick and Microscopicon 1 08-27-2022 Appearance (U) Clear Normal Clear [facility] Comment on above: Order Comment: Name Collection Type:: Voided Performed By: #### O BUDS, ADDONUAPLUS #### [facility] [address] [place] [id number] [place] Bacteria,Urine Rare High None Seen [facility] Comment on above: Order Comment: Name Collection Type:: Voided Performed By: #### O BUDS, ADDONUAPLUS #### [facility] [address] [place] [address] [place] Bilirubin,Urine Negative Normal Negative [facility] Comment on above: Order Comment: Name Collection Type:: Voided Performed By: #### O BUDS, ADDONUAPLUS #### [facility] [address] [place] [address] [place] Color (U) Yellow Normal Yellow [facility] Comment on above: Order Comment: Name Collection Type:: Voided Performed By: #### O BUDS, ADDONUAPLUS #### [facility] [address] [place] [id number] [place] Glucose Ql (U) Normal Normal Normal [facility] Comment on above: Order Comment: Name Collection Type:: Voided Performed By: #### O BUDS, ADDONUAPLUS #### [facility] [address] [place] [id number] [place] Hyaline Casts,Urine None Seen Normal 0-1 [facility] Comment on above: Order Comment: Name Collection Type:: Voided Performed By: #### O BUDS, ADDONUAPLUS #### [facility] [address] [place] [id number] [place] Ketones Ql (U) Negative Normal Negative [facility] Comment on above: Order Comment: Name Collection Type:: Voided Performed By: #### O BUDS, ADDONUAPLUS #### [facility] [address] [place] [address] Leukocyte esterase Test strip Ql (U) Negative Normal Negative [facility] Comment on above: Order Comment: Name Collection Type:: Voided Performed By: #### O BUDS, ADDONUAPLUS #### [facility] [address] [place] [address] Nitrite,Urine Negative Normal Negative [facility] Comment on above: Order Comment: Name Collection Type:: Voided Performed By: #### O BUDS, ADDONUAPLUS #### [address] Occult Blood,Urine 3+ High Negative [facility] Comment on above: Order Comment: Name Collection Type:: Voided Result Comment: PERF ORMED BY: [place] [address] PATHOLOGIST MONITORING MANAGER JERRY CASTRO M.D. Performed By: #### O BUDS, ADDONUAPLUS #### [address] pH (U) 6.5 [pH] Normal 5.0-9.0 [facility] Comment on above: Order Comment: Name Collection Type:: Voided Performed By: #### O BUDS, ADDONUAPLUS #### [place] [address] [place] Protein,Urine Trace High Negative [facility] Comment on above: Order Comment: Name Collection Type:: Voided Performed By: #### O BUDS, ADDONUAPLUS #### [facility] [address] [place] [address] [place] RBC,Urine 10-19 High 0-4 [facility] Comment on above: Order Comment: Name Collection Type:: Voided Performed By: #### O BUDS, ADDONUAPLUS #### [facility] [address] [place] [address] [place] Specificy Gilbert,Urine 1.009 Normal 1.001-1.030 [facility] Comment on above: Order Comment: Name Collection Type:: Voided Performed By: #### O BUDS, ADDONUAPLUS #### [facility] [address] [place] [address] Squamous Epithelial Cell,Urine 10-19 High 0-2 [facility] Comment on above: Order Comment: Name Collection Type:: Voided Performed By: #### O BUDS, ADDONUAPLUS #### [facility] [address] [place] [address] Urobilinogen,Urine Normal Normal Normal [facility] Comment on above: Order Comment: Name Collection Type:: Voided Performed By: #### O BUDS, ADDONUAPLUS #### [facility] [address] [place] [address] WBC LM.HPF (Urine sed) [#/Area] 0 /[HPF] Normal 0-4 [facility] Comment on above: Order Comment: Name Collection Type:: Voided Performed By: #### O BUDS, ADDONUAPLUS #### [address] Yeast,Urine Rare Critically abnormal None Seen [facility] Comment on above: Order Comment: Name Collection Type:: Voided Result Comment: PERF ORMED BY: [place] [address] PATHOLOGIST MONITORING MANAGER JERRY CASTRO M.D. Performed By: #### O BUDS, ADDONUAPLUS #### [facility] [facility] [address] [place] [address] Eosinophils Auto (Bld) [#/Vo l]Ordered By: Emerald Martinez on 06-26-2023 Eosinophils (Bld) [#/Vol] 0.0 10*3/uL 0.0-0.45 [facility] Eosinophils/100 WBC Auto (Bl d)Ordered By: Emerald Martinez on 06-26-2023 Eosinophils/100 WBC (Bld) 0.2 % . [facility] Erythrocyte distribution wid th Auto (RBC) [Ratio]Ordered By: Emerald Martinez on 06-26-2023 Erythrocyte distribution width (RBC) [Ratio] 13.4 % 11.9-15.3 [facility] Fibronectinon 06-26-20 Fibronectin Negative Normal Negative [facility] Comment on above: Order Comment: Comme nt patients 22 - 34 6/7 weeks prior to vaginal exam Result Comment: PERF ORMED BY: [facility] [address] [place] [address] PATHOLOGIST MONITORING MANAGER JERRY CASTRO M.D. Performed By: #### F FN #### [facility] [address] fibronectinOrdered By: Emerald Martinez on 06-26-2023 Fibronectin. (Vag fld) [Mass/Vol] Negative Negative [facility] Globulin Calc (S) [Mass/Vol] Ordered By: Emerald Martinez on 06-26-2023 Globulin (S) [Mass/Vol] 2.1 g/dL [facility] Glucose [Mass/volume] in Ser um or PlasmaOrdered By: Emerald Martinez on 06-26-2023 Glucose [Mass/Vol] 124 mg/dL 70-100 [facility] Comment on above: ADA recommended refe rence rangeRandom Glucose Reference Range is dependent on time and content of last meal. Glucose of more than 200 mg/dL in a nonstressed, ambulatory subject supports the diagnosis of Diabetes Mellitus. Hematocrit Auto (Bld) [Volum e fraction]Ordered By: Emerald Martinez on 06-26-2023 Hematocrit (Bld) [Volume fraction] 33.5 % 34.0-46.4 [facility] Hemoglobin [Mass/volume] in BloodOrdered By: Emerald Martinez on 06-26-2023 Hemoglobin (Bld) [Mass/Vol] 11.3 g/dL 11.8-15.4 [facility] Ketones Auto test strip (U) [Mass/Vol]Ordered By: Emerald Martinez on 06-26-2023 Ketones (U) [Mass/Vol] Negative Negative [facility] Leukocytes [#/volume] correc mague for nucleated erythrocytes in Blood by Automated counOrdered By: Emerald Martinez on 06-26-2023 WBC corrected for nucl RBC Auto (Bld) [#/Vol] 13.6 10*3/uL 3.8-11.6 [facility] Lymphocytes Auto (Bld) [#/Vo l]Ordered By: Emerald Martinez on 06-26-2023 Lymphocytes (Bld) [#/Vol] 1.1 10*3/uL 1.00-4.8 [facility] Lymphocytes/100 WBC Auto (Bl d)Ordered By: Emerald Martinez on 06-26-2023 Lymphocytes/100 WBC (Bld) 8.3 % . [facility] MCH Auto (RBC) [Entitic mass ]Ordered By: Emerald Martinez on 06-26-2023 MCH (RBC) [Entitic mass] 29.0 pg 24.7-34.3 [facility] MCHC Auto (RBC) [Mass/Vol]Or dered By: Emerald Martinez on 06-26-2023 MCHC (RBC) [Mass/Vol] 33.7 g/dL 32.0-35.0 Fir [facility] MCV Auto (RBC) [Entitic vol] Ordered By: Emerald Martinez on 06-26-2023 MCV (RBC) [Entitic vol] 86.2 fL 80-100 [facility] Monocytes Auto (Bld) [#/Vol] Ordered By: Emerald Martinez on 06-26-2023 Monocytes (Bld) [#/Vol] 0.6 10*3/uL 0.0-0.8 [facility] Monocytes/100 WBC Auto (Bld) Ordered By: Emerald Martinez on 06-26-2023 Monocytes/100 WBC (Bld) 4.2 % . [facility] Neutrophils Auto (Bld) [#/Vo l]Ordered By: Emerald Martinez on 06-26-2023 Neutrophils (Bld) [#/Vol] 11.9 10*3/uL 1.8-7.7 [facility] Neutrophils/100 WBC Auto (Bl d)Ordered By: Emerald Martinez on 06-26-2023 Neutrophils/100 WBC (Bld) 87.1 % . [facility] Nitrite Test strip Ql (U)Ord ered By: Emerald Martinez on 06-26-2023 Nitrite Ql (U) Negative Negative [facility] No Panel InformationOrdered By: Emeraldseven Martinez on 06-26-2023 Estimated GFR (CKD-EPI) > 60.0 mL/Min [facility] Creatinine Clearance (Chem 138.60 [facility] Nucleated erythrocytes [Pres ence] in Blood by Automated countOrdered By: Emeraldseven Martinez on 06-26-2023 Nucleated RBC Auto Ql (Bld) 0.1 /100{WBC} 0-0.5 [facility] OB Urine Drug Screen (NO THC )on 06-26-2023 Amphetamine Screen,Urine Negative Normal Negative [facility] Comment on above: Performed By: #### O BUDS, ADDONUAPLUS #### [facility] [address] [place] [address] [place] Barbiturate Screen,Urine Negative Normal Negative [facility] Comment on above: Performed By: #### O BUDS, ADDONUAPLUS #### [facility] [address] [place] [address] [place] Benzodiazepines Screen,Urine Negative Normal Negative [facility] Comment on above: Performed By: #### O BUDS, ADDONUAPLUS #### [facility] [address] [place] [address] [place] Cocaine Screen,Urine Negative Normal Negative [facility] Comment on above: Performed By: #### O BUDS, ADDONUAPLUS #### [facility] [address] [place] [address] [place] Opiate Screen,Urine Negative Normal Negative [facility] Comment on above: Performed By: #### O BUDS, ADDONUAPLUS #### [facility] [address] [place] [address] [place] Phencyclidine Screen, Urine Negative Normal Negative [facility] Comment on above: Result Comment: Thes e are unconfirmed results and should not be used for legal purposes. Drug Cut-Off Concentration: AMPH 1000 ng/mL DORIS 200 ng/mL LEANNE 200 ng/mL COCM 300 ng/mL OP 300 ng/mL PCP 25 ng/mL PERFORMED BY: [place] [address] PATHOLOGIST MONITORING MANAGER JIANLAN SUN M.D. Performed By: #### O BUDS, ADDONUAPLUS #### [facility] [address] Opiates [Presence] in Urine by Screen methodOrdered By: Emerald Martinez on 06-26-2023 Opiates Screen Ql (U) Negative Negative [facility] Phencyclidine Screen Ql (U)O rdered By: Emerald Martinez on 06-26-2023 Phencyclidine Ql (U) Negative Negative [facility] Comment on above: These are unconfirme d results and should not be used for legal purposes. Drug Cut-Off Concentration: AMPH 1000 ng/mL DORIS 200 ng/mL LEANNE 200 ng/mL COCM 300 ng/mL OP 300 ng/mL PCP 25 ng/mL Platelet mean volume Auto (B ld) [Entitic vol]Ordered By: Emerald Martinez on 06-26-2023 Platelet mean volume (Bld) [Entitic vol] 9.8 fL 6.3-10.7 [facility] Platelets Auto (Bld) [#/Vol] Ordered By: Emerald Martinez on 06-26-2023 Platelets (Bld) [#/Vol] 174 10*3/uL 150-450 [facility] Potassium [Moles/volume] in Serum or PlasmaOrdered By: Emerald Martinez on 06-26-2023 Potassium [Moles/Vol] 3.3 mmol/L 3.5-5.1 [facility] Protein Auto test strip (U) [Mass/Vol]Ordered By: Emerald Martinez on 06-26-2023 Protein (U) [Mass/Vol] Trace mg/dL Negative [facility] Protein [Mass/volume] in Ser um or PlasmaOrdered By: Emerald Martinez on 06-26-2023 Protein [Mass/Vol] 5.5 g/dL 6.4-8.9 [facility] RBC Auto (Bld) [#/Vol]Ordere d By: Emerald Martinez on 06-26-2023 RBC (Bld) [#/Vol] 3.89 10*6/uL 3.60-5.00 [facility] Serum or plasma albumin/glob ulin mass ratioOrdered By: Emerald Martinez on 06-26-2023 Albumin/Globulin [Mass ratio] 1.6 {ratio} [facility] Serum or plasma anion gap de terminationOrdered By: Emerald Martinez on 06-26-2023 Anion gap [Moles/Vol] 12.5 mmol/L 6.0-15.0 [facility] Sodium [Moles/volume] in Ser um or PlasmaOrdered By: Emerald Martinez on 06-26-2023 Sodium [Moles/Vol] 138 mmol/L 136-145 [facility] Specific gravity Auto test s trip (U) [Rel density]Ordered By: Emerald Martinez on 06-26-2023 Specific gravity (U) [Rel density] 1.009 1.001-1.030 [facility] Urea nitrogen [Mass/volume] in Serum or PlasmaOrdered By: Emerald Martinez on 06-26-2023 Urea nitrogen [Mass/Vol] 6 mg/dL 7-25 [facility] Urine bacteria detection by automated methodOrdered By: Emerald Martinez on 06-26-2023 Bacteria Auto Ql (U) Rare None Seen [facility] Urine clarity by refractomet ry automatedOrdered By: Emerald Martinez on 06-26-2023 Clarity Refractometry automated (U) Clear Clear [facility] Urine glucose measurement by automated test strip (mass/volume)Ordered By: Emerald Martinez on 06-26-2023 Glucose Auto test strip (U) [Mass/Vol] Normal mg/dL Normal [facility] Urine hemoglobin detection b y automated test stripOrdered By: Emerald Martinez on 06-26-2023 Hemoglobin Auto test strip Ql (U) 3+ Negative [facility] Urine leukocyte esterase det ection by automated test stripOrdered By: Emerald Martinez on 06-26-2023 Leukocyte esterase Auto test strip Ql (U) Negative Negative [facility] Urobilinogen Auto test strip (U) [Mass/Vol]Ordered By: Emerald Martinez on 06-26-2023 Urobilinogen (U) [Mass/Vol] Normal mg/dL Normal [facility] WBC Auto (Bld) [#/Vol]Ordere d By: Emerald Martinez on 06-26-2023 WBC (Bld) [#/Vol] 13.6 10*3/uL 3.8-11.6 [facility] Yeast detection in urine sed iment by light microscopyOrdered By: Emerald Martinez on 06-26-2023 Yeast LM Ql (Urine sed) Rare [HPF] None Seen [facility] pH Auto test strip (U)Ordere d By: Emerald Martinez on 06-26-2023 pH (U) 6.5 [pH] 5.0-9.0 [facility] 1,25 Dihydroxy Vit D Calcitr olon 06-06-2023 1,25 Dihydroxy Vit D Calcitrol 123.0 pg/mL High 24.8-81.5 [facility] Comment on above: Result Comment: Perf ormed at: BN - [facility] [address] [id number] Elevated Motorman: Dinora Alvarenga MD, Phone: [phone] PERFORMED BY: [place] [address] PATHOLOGIST MONITORING MANAGER JERRY CASTRO M.D. Performed By: #### F FN #### [address] Alanine aminotransferase [En zymatic activity/volume] in Serum or PlasmaOrdered By: Latrice Sepulveda on 06-06-2023 ALT [Catalytic activity/Vol] 19 U/L 7-52 [facility] Albumin [Mass/volume] in Ser um or Plasma by Bromocresol green (BCG) dye binding methoOrdered By: Latrice Sepulveda on 06-06-2023 Albumin BCG dye [Mass/Vol] 3.5 g/dL 3.5-5.7 [facility] Alkaline phosphatase [Enzyma tic activity/volume] in Serum or PlasmaOrdered By: Latrice Sepulveda on 06-06-2023 ALP [Catalytic activity/Vol] 84 U/L 34-104 [facility] Aspartate aminotransferase [ Enzymatic activity/volume] in Serum or PlasmaOrdered By: Latrice Sepulveda on 06-06-2023 AST [Catalytic activity/Vol] 16 U/L 13-39 [facility] Bilirubin.total [Mass/volume ] in Serum or PlasmaOrdered By: Latrice Sepulveda on 06-06-2023 Bilirubin [Mass/Vol] 0.3 mg/dL 0.3-1.0 [facility] Calcium [Mass/volume] in Ser um or PlasmaOrdered By: Latrice Sepulveda on 06-06-2023 Calcium [Mass/Vol] 8.6 mg/dL 8.6-10.3 [facility] Carbon dioxide, total [Moles /volume] in Serum or PlasmaOrdered By: Latrice Sepulveda on 06-06-2023 CO2 [Moles/Vol] 24.8 mmol/L 21.0-31.0 [facility] Chloride [Moles/volume] in S gris or PlasmaOrdered By: Latrice Sepulveda on 06-06-2023 Chloride [Moles/Vol] 107 mmol/L 98-107 [facility] Comprehensive Metabolic Pane mauricio 06-06-2023 Albumin [Mass/Vol] 3.5 g/dL Normal 3.5-5.7 [facility] Comment on above: Performed By: #### F FN #### [facility] [address] Albumin/Globulin [Mass ratio] 1.5 {ratio} Normal [facility] Comment on above: Performed By: #### F FN #### [facility] [address] [place] [address] [place] ALP [Catalytic activity/Vol] 84 U/L Normal 34-104 [facility] Comment on above: Performed By: #### F FN #### [facility] [address] [place] [id number] [place] ALT [Catalytic activity/Vol] 19 U/L Normal 7-52 [facility] Comment on above: Performed By: #### F FN #### [facility] [address] Anion gap [Moles/Vol] 9.9 mmol/L Normal 6.0-15.0 [facility] Comment on above: Performed By: #### F FN #### [facility] [address] AST [Catalytic activity/Vol] 16 U/L Normal 13-39 [facility] Comment on above: Performed By: #### F FN #### [address] Bilirubin [Mass/Vol] 0.3 mg/dL Normal 0.3-1.0 [facility] Comment on above: Performed By: #### F FN #### [address] Calcium [Mass/Vol] 8.6 mg/dL Normal 8.6-10.3 [facility] Comment on above: Performed By: #### F FN #### [address] Chloride [Moles/Vol] 107 mmol/L Normal 98-107 [facility] Comment on above: Performed By: #### F FN #### [address] CO2 [Moles/Vol] 24.8 mmol/L Normal 21.0-31.0 [facility] Comment on above: Performed By: #### F FN #### [address] Creatinine [Mass/Vol] 0.45 mg/dL Low 0.60-1.20 [facility] Comment on above: Performed By: #### F FN #### [address] GFR/1.73 sq M.predicted MDRD (S/P/Bld) [Vol rate/Area] mL/min/{1.73_m2} Normal [facility] Comment on above: Performed By: #### F FN #### [address] Globulin (S) [Mass/Vol] 2.4 g/dL Normal [facility] Comment on above: Performed By: #### F FN #### [address] Glucose [Mass/Vol] 89 mg/dL Normal 70-100 [facility] Comment on above: Result Comment: [place] [facility] Glucose Reference Range is dependent on time and content of last meal. Glucose of more than 200 mg/dL in a nonstressed, ambulatory subject supports the diagnosis of Diabetes Mellitus. ADA recommended reference range Performed By: #### F FN #### [facility] [address] Potassium [Moles/Vol] 3.7 mmol/L Normal 3.5-5.1 [facility] Comment on above: Performed By: #### F FN #### [facility] [address] [place] [id number] [place] Protein [Mass/Vol] 5.9 g/dL Low 6.4-8.9 [facility] Comment on above: Performed By: #### F FN #### [facility] [address] [place] [id number] [place] Sodium [Moles/Vol] 138 mmol/L Normal 136-145 [facility] Comment on above: Performed By: #### F FN #### [facility] [address] [place] [id number] [place] Urea nitrogen [Mass/Vol] 5 mg/dL Low 7-25 [facility] Comment on above: Performed By: #### F FN #### [facility] [address] [place] [id number] [place] Creatinine [Mass/volume] in Serum or PlasmaOrdered By: Latrice Sepulveda on 06-06-2023 Creatinine [Mass/Vol] 0.45 mg/dL 0.60-1.20 [facility] Globulin Calc (S) [Mass/Vol] Ordered By: Latrice Sepulveda on 06-06-2023 Globulin (S) [Mass/Vol] 2.4 g/dL [facility] Glucose [Mass/volume] in Ser um or PlasmaOrdered By: Latrice Sepulveda on 06-06-2023 Glucose [Mass/Vol] 89 mg/dL 70-100 [facility] Comment on above: ADA recommended refe rence rangeRandom Glucose Reference Range is dependent on time and content of last meal. Glucose of more than 200 mg/dL in a nonstressed, ambulatory subject supports the diagnosis of Diabetes Mellitus. No Panel InformationOrdered By: Latrice Sepulveda on 06-06-2023 Estimated GFR (CKD-EPI) > 60.0 mL/Min [facility] Creatinine Clearance (Chem N/A [facility] Parathyrin.intact [Mass/volu me] in Serum or PlasmaOrdered By: Latrice Sepulveda on 06-06-2023 Parathyrin.intact [Mass/Vol] 45.8 pg/mL [facility] Parathyroid Hormone Intacton 06-06-2023 Parathyroid Hormone Intact 45.8 pg/mL Normal [facility] Comment on above: Result Comment: PERF ORMED BY: [place] [address] PATHOLOGIST MONITORING MANAGER JERRY CASTRO M.D. Performed By: #### F #### [address] Potassium [Moles/volume] in Serum or PlasmaOrdered By: Latrice Sepulveda on 06-06-2023 Potassium [Moles/Vol] 3.7 mmol/L 3.5-5.1 [facility] Protein [Mass/volume] in Ser um or PlasmaOrdered By: Latrice Sepulveda on 06-06-2023 Protein [Mass/Vol] 5.9 g/dL 6.4-8.9 [facility] Serum or plasma albumin/glob ulin mass ratioOrdered By: Latrice Sepulveda on 06-06-2023 Albumin/Globulin [Mass ratio] 1.5 {ratio} [facility] Serum or plasma anion gap de terminationOrdered By: Latrice Sepulveda on 06-06-2023 Anion gap [Moles/Vol] 9.9 mmol/L 6.0-15.0 [facility] Serum or plasma calcitriol m easurement (mass/volume)Ordered By: Latrice Sepulveda on 06-06-2023 1,25-dihydroxyvitamin D3 [Mass/Vol] 123.0 pg/mL 24.8-81.5 [facility] Comment on above: Performed at: [place] [address] [place], [place] [id number] Director: Dinora Alvarenga MD, Phone: [phone] Sodium [Moles/volume] in Ser um or PlasmaOrdered By: Latrice Sepulveda on 06-06-2023 Sodium [Moles/Vol] 138 mmol/L 136-145 [facility] Urea nitrogen [Mass/volume] in Serum or PlasmaOrdered By: Latrice Sepulveda on 06-06-2023 Urea nitrogen [Mass/Vol] 5 mg/dL 7 [facility] Vitamin D 25 Hydroxy Totalon 06-06-2023 Vitamin D 25 Hydroxy Total 22.4 ng/mL Low 30-100 [facility] Comment on above: Result Comment: HARVINDER MIN D STATUS 25(OH)VITAMIN D RANGE (ng/mL) Deficient <20 Insufficient 20 to <30 Sufficient 30 to 100 Reference: Lino Pena, Gildardo MARTELL, et al. Evaluation,treatment, and prevention of vitamin D deficiency; an Endocrine Society clinical practice guideline. JCEM. 2010; 96(7):1911-30. PERFORMED BY: [place] [address] PATHOLOGIST MONITORING MANAGER JERRY CASTRO M.D. Performed By: #### F #### [address] Vitamin D+Metabolites [Mass/ volume] in Serum or PlasmaOrdered By: Latrice Sepulveda on 06-06-2023 Vitamin D+Metabolites [Mass/Vol] 22.4 ng/mL 30-100 [facility] Comment on above: VITAMIN D STATUS 25( [place])VITAMIN D RANGE (ng/mL) Deficient <20 Insufficient 20 to <30Sufficient 30 to 100Reference: Lino Pena, Gildardo MARTELL et al. Evaluation,treatment, and prevention of vitamin D deficiency; an Endocrine Society clinical practice guideline. JCEM. 2010; 96(7):1911-30. Vitamin D 25 Hydroxy Totalon 05-06-2023 Vitamin D 25 Hydroxy Total 21.0 ng/mL Low 30-100 [facility] Comment on above: Order Comment: Comme nt patients 22 - 34 6/7 weeks prior to vaginal exam Result Comment: HARVINDER MIN D STATUS 25(OH)VITAMIN D RANGE (ng/mL) Deficient <20 Insufficient 20 to <30 Sufficient 30 to 100 Reference: Lino Pena, Gildardo MARTELL, et al. Evaluation,treatment, and prevention of vitamin D deficiency; an Endocrine Society clinical practice guideline. JCEM. 2010; 96(7):1911-30. PERFORMED BY: [place] [address] PATHOLOGIST MONITORING MANAGER JERRY CASTRO M.D. Performed By: #### F #### [address] Vitamin D+Metabolites [Mass/ volume] in Serum or PlasmaOrdered By: Page Magaña on 05-06-2023 Vitamin D+Metabolites [Mass/Vol] 21.0 ng/mL 30-100 [facility] Comment on above: VITAMIN D STATUS 25( [place])VITAMIN D RANGE (ng/mL) Deficient <20 Insufficient 20 to <30Sufficient 30 to 100Reference: Helen GARBER,Lino PAGE, Gildardo MARTELL, et al. Evaluation,treatment, and prevention of vitamin D deficiency; an Endocrine Society clinical practice guideline. JCEM. 2010; 96(7):1911-30. Alanine aminotransferase [En zymatic activity/volume] in Serum or PlasmaOrdered By: Sarmad Luque on 01-24-2023 ALT [Catalytic activity/Vol] 20 U/L 7-52 [facility] Albumin [Mass/volume] in Ser um or Plasma by Bromocresol green (BCG) dye binding methoOrdered By: Sarmad Luque on 01-24-2023 Albumin BCG dye [Mass/Vol] 4.7 g/dL 3.5-5.7 [facility] Alkaline phosphatase [Enzyma tic activity/volume] in Serum or PlasmaOrdered By: Sarmad Luque on 01-24-2023 ALP [Catalytic activity/Vol] 71 U/L 34-104 [facility] Aspartate aminotransferase [ Enzymatic activity/volume] in Serum or PlasmaOrdered By: Sarmad Luque on 01-24-2023 AST [Catalytic activity/Vol] 14 U/L 13-39 [facility] Automated erythrocytes count in urine sediment (number/area)Ordered By: Sarmad Luque on 01-24-2023 RBC Auto (Urine sed) [#/Area] 20-49 [HPF] 0-4 [facility] Automated leukocytes count i n urine sediment (number/area)Ordered By: Sarmad Luque on 01-24-2023 WBC Auto (Urine sed) [#/Area] 1-2 [HPF] 0-4 [facility] Basic Metabolic Panelon 01-07 Anion gap [Moles/Vol] 11.4 mmol/L Normal 6.0-15.0 [facility] Comment on above: Performed By: #### C BC, LIPASE, BMP, HEPATIC ####[facility] [place] [address] [facility] Calcium [Mass/Vol] 9.0 mg/dL Normal 8.6-10.3 [facility] Comment on above: Performed By: #### C BC, LIPASE, BMP, HEPATIC ####[facility] [place] [address] [place] Chloride [Moles/Vol] 105 mmol/L Normal 98-107 [facility] Comment on above: Performed By: #### C BC, LIPASE, BMP, HEPATIC ####[facility] [place] [address] [facility] CO2 [Moles/Vol] 25.0 mmol/L Normal 21.0-31.0 [facility] Comment on above: Performed By: #### C BC, LIPASE, BMP, HEPATIC ####[facility] [place] [address] [place] Creatinine [Mass/Vol] 0.67 mg/dL Normal 0.60-1.20 [facility] Comment on above: Performed By: #### C BC, LIPASE, BMP, HEPATIC ####[facility] [place] [address] [place] Creatinine Clr Calc Pharmacy 103.40 [facility] Comment on above: Performed By: #### C BC, LIPASE, BMP, HEPATIC ####[facility] [place] [address] [facility] GFR/1.73 sq M.predicted MDRD (S/P/Bld) [Vol rate/Area] mL/min/{1.73_m2} Normal [facility] Comment on above: Performed By: #### C BC, LIPASE, BMP, HEPATIC ####[place] [id number] [place] [id number] [facility] Glucose [Mass/Vol] 89 mg/dL Normal 70-100 [facility] Comment on above: Result Comment: [facility] Glucose Reference Range is dependent on time and content of last meal. Glucose of more than 200 mg/dL in a nonstressed, ambulatory subject supports the diagnosis of Diabetes Mellitus. ADA recommended reference range Performed By: #### C BC, LIPASE, BMP, HEPATIC ####[place] [id number] [place] [id number] [facility] Potassium [Moles/Vol] 3.4 mmol/L Low 3.5-5.1 [facility] Comment on above: Performed By: #### C BC, LIPASE, BMP, HEPATIC ####[place] [id number] [place] [id number] [facility] Sodium [Moles/Vol] 138 mmol/L Normal 136-145 [facility] Comment on above: Performed By: #### C BC, LIPASE, BMP, HEPATIC ####[place] [id number] [facility] Urea nitrogen [Mass/Vol] 6 mg/dL Low 7-25 [facility] Comment on above: Performed By: #### C BC, LIPASE, BMP, HEPATIC ####[place] [id number] [place] Basophils Auto (Bld) [#/Vol] Ordered By: Sarmad Luque on 01-24-2023 Basophils (Bld) [#/Vol] 0.1 10*3/uL 0.0-0.2 [facility] Basophils/100 WBC Auto (Bld) Ordered By: Sarmad Luque on 01-24-2023 Basophils/100 WBC (Bld) 0.8 % . [facility] Bilirubin Test strip Ql (U)O rdered By: Sarmad Luque on 01-24-2023 Bilirubin Ql (U) Negative Negative [facility] Bilirubin.direct [Mass/volum e] in Serum or PlasmaOrdered By: Sarmad Luque on 01-24-2023 Bilirubin.direct [Mass/Vol] 0.20 mg/dL 0.03-0.18 [facility] Bilirubin.total [Mass/volume ] in Serum or PlasmaOrdered By: Sarmad Luque on 01-24-2023 Bilirubin [Mass/Vol] 0.9 mg/dL 0.3-1.0 [facility] Calcium [Mass/volume] in Ser um or PlasmaOrdered By: Sarmad Luque on 01-24-2023 Calcium [Mass/Vol] 9.0 mg/dL 8.6-10.3 [facility] Carbon dioxide, total [Moles /volume] in Serum or PlasmaOrdered By: Sarmad Luque on 01-24-2023 CO2 [Moles/Vol] 25.0 mmol/L 21.0-31.0 [facility] Chloride [Moles/volume] in S gris or PlasmaOrdered By: Sarmad Luque on 01-24-2023 Chloride [Moles/Vol] 105 mmol/L 98-107 [facility] Choriogonadotropin.beta subu nit [Units/volume] in Serum or PlasmaOrdered By: Sarmad Luque on 01-24-2023 HCG.beta subunit Qn 120.64 m[IU]/mL [facility] Comment on above: Approximate Approxim ate hCG Gestational Age Range (mIU/ml) (weeks)0.2-1 5-50 1-2 50-500 2-3 100-5,000 3-4 500-10,000 4-5 1,000-50,000 5-6 10,000-100,000 6-8 15,000-200,000 8-12 10,000-100,000 Color Auto (U)Ordered By: Eric Luque on 01-24-2023 Color (U) Yellow Yellow [facility] Complete Blood Count Auto Di ffon 01-24-2023 Basophils (Bld) [#/Vol] 0.1 10*3/uL Normal 0.0-0.2 [facility] Comment on above: Result Comment: PERF ORMED BY: [place] [address] PATHOLOGIST MONITORING MANAGER JERRY CASTRO M.D. Performed By: #### F FN #### [address] Basophils/100 WBC (Bld) 0.8 % Normal . [facility] Comment on above: Performed By: #### F FN #### [address] Eosinophils (Bld) [#/Vol] 0.1 10*3/uL Normal 0.0-0.45 [facility] Comment on above: Performed By: #### F FN #### [address] Eosinophils/100 WBC (Bld) 1.3 % Normal . [facility] Comment on above: Performed By: #### F FN #### [address] Erythrocyte distribution width (RBC) [Ratio] 13.5 % Normal 11.9-15.3 [facility] Comment on above: Performed By: #### F FN #### [address] Hematocrit (Bld) [Volume fraction] 41.4 % Normal 34.0-46.4 [facility] Comment on above: Performed By: #### F FN #### [address] Hemoglobin (Bld) [Mass/Vol] 14.1 g/dL Normal 11.8-15.4 [facility] Comment on above: Performed By: #### F FN #### [address] Lymphocytes (Bld) [#/Vol] 2.4 10*3/uL Normal 1.00-4.8 [facility] Comment on above: Performed By: #### F FN #### [address] Lymphocytes/100 WBC (Bld) 31.9 % Normal . [facility] Comment on above: Performed By: #### F FN #### [address] MCH (RBC) [Entitic mass] 28.8 pg Normal 24.7-34.3 [facility] Comment on above: Performed By: #### F FN #### [address] MCV (RBC) [Entitic vol] 84.3 fL Normal 80-100 [facility] Comment on above: Performed By: #### F FN #### [address] Mean Corpuscular HGB Conc 34.1 g/dL Normal 32.0-35.0 [facility] Comment on above: Performed By: #### F FN #### [address] Monocytes (Bld) [#/Vol] 0.5 10*3/uL Normal 0.0-0.8 [facility] Comment on above: Performed By: #### F FN #### [address] Monocytes/100 WBC (Bld) 17.21 % Normal 0.00-20.00 [facility] Comment on above: Performed By: #### F FN #### [address] Monocytes/100 WBC (Bld) 7.3 % Normal . [facility] Comment on above: Performed By: #### F FN #### [address] Neutrophils (Bld) [#/Vol] 4.3 10*3/uL Normal 1.8-7.7 [facility] Comment on above: Performed By: #### F FN #### [address] Neutrophils/100 WBC (Bld) 58.7 % Normal . [facility] Comment on above: Performed By: #### F FN #### [facility] [address] NRBC% 0.1 /100{WBC} Normal 0-0.5 [facility] Comment on above: Performed By: #### F FN #### [facility] [address] Platelet mean volume (Bld) [Entitic vol] 9.2 fL Normal 6.3-10.7 [facility] Comment on above: Performed By: #### F FN #### [facility] [address] Platelets (Bld) [#/Vol] 222 10*3/uL Normal 150-450 [facility] Comment on above: Performed By: #### F FN #### [facility] [address] RBC (Bld) [#/Vol] 4.91 10*6/uL Normal 3.60-5.00 [facility] Comment on above: Performed By: #### F FN #### [facility] [address] WBC (Bld) [#/Vol] 7.4 10*3/uL Normal 3.8-11.6 [facility] Comment on above: Performed By: #### F FN #### [facility] [address] Creatinine [Mass/volume] in Serum or PlasmaOrdered By: Sarmad Luque on 01-24-2023 Creatinine [Mass/Vol] 0.67 mg/dL 0.60-1.20 [facility] Dipstick and Microscopicon 0 01-24-2023 Appearance (U) Cloudy Critically abnormal Clear [facility] Comment on above: Order Comment: Name Collection Type:: Clean-Voided Midstream Performed By: #### A DDONUAPLUS, UHCG ####[facility] [id number] Bacteria,Urine None Seen Normal None Seen [facility] Comment on above: Order Comment: Name Collection Type:: Clean-Voided Midstream Performed By: #### A DDONUAPLUS, UHCG ####[address] [address] [place] Bilirubin,Urine Negative Normal Negative [facility] Comment on above: Order Comment: Name Collection Type:: Clean-Voided Midstream Performed By: #### A DDONUAPLUS, UHCG ####[address] [address] [facility] Color (U) Yellow Normal Yellow [facility] Comment on above: Order Comment: Name Collection Type:: Clean-Voided Midstream Performed By: #### A DDONUAPLUS, UHCG ####[address] [address] [facility] Glucose Ql (U) Normal Normal Normal [facility] Comment on above: Order Comment: Name Collection Type:: Clean-Voided Midstream Performed By: #### A DDONUAPLUS, UHCG ####[address] [address] [place] Hyaline Casts,Urine 0-8 Normal 0-8 [facility] Comment on above: Order Comment: Name Collection Type:: Clean-Voided Midstream Performed By: #### A DDONUAPLUS, UHCG ####[address] [address] [facility] Ketones Ql (U) Trace High Negative [facility] Comment on above: Order Comment: Name Collection Type:: Clean-Voided Midstream Performed By: #### A DDONUAPLUS, UHCG ####[address] [address] [facility] Leukocyte esterase Test strip Ql (U) 1+ High Negative [facility] Comment on above: Order Comment: Name Collection Type:: Clean-Voided Midstream Performed By: #### A DDONUAPLUS, UHCG ####[address] [address] [place] Nitrite,Urine Negative Normal Negative [facility] Comment on above: Order Comment: Name Collection Type:: Clean-Voided Midstream Performed By: #### A DDONUAPLUS, UHCG ####[address] [address] [facility] Occult Blood,Urine 2+ High Negative [facility] Comment on above: Order Comment: Name Collection Type:: Clean-Voided Midstream Performed By: #### A DDONUAPLUS, UHCG ####[address] [address] [facility] pH (U) 6.0 [pH] Normal 5.0-9.0 [facility] Comment on above: Order Comment: Name Collection Type:: Clean-Voided Midstream Performed By: #### A DDONUAPLUS, UHCG ####[address] [address] [facility] Protein,Urine Trace High Negative [facility] Comment on above: Order Comment: Name Collection Type:: Clean-Voided Midstream Performed By: #### A DDONUAPLUS, UHCG ####[address] [address] [facility] RBC,Urine 20-49 High 0-4 [facility] Comment on above: Order Comment: Name Collection Type:: Clean-Voided Midstream Performed By: #### A DDONUAPLUS, UHCG ####[address] [address] [facility] Specificy Gilbert,Urine 1.022 Normal 1.001-1.030 [facility] Comment on above: Order Comment: Name Collection Type:: Clean-Voided Midstream Performed By: #### A DDONUAPLUS, UHCG ####[address] [address] [facility] Squamous Epithelial Cell,Urine 5-9 High 0-2 [facility] Comment on above: Order Comment: Name Collection Type:: Clean-Voided Midstream Performed By: #### A DDONUAPLUS, UHCG ####[address] [address] [facility] Urobilinogen,Urine Normal Normal Normal [facility] Comment on above: Order Comment: Name Collection Type:: Clean-Voided Midstream Performed By: #### A EARLUATRESSA, [facility] [place] [place] ####[facility] WBC,Urine 1-2 Normal 0-4 [facility] Comment on above: Order Comment: Name Collection Type:: Clean-Voided Midstream Performed By: #### A EARLUATRESSA, [facility] [place] [place] ####[facility] Eosinophils Auto (Bld) [#/Vo l]Ordered By: Sarmad Luque on 01-24-2023 Eosinophils (Bld) [#/Vol] 0.1 10*3/uL 0.0-0.45 [facility] Eosinophils/100 WBC Auto (Bl d)Ordered By: Sarmad Luque on 01-24-2023 Eosinophils/100 WBC (Bld) 1.3 % . [facility] Erythrocyte distribution wid th Auto (RBC) [Ratio]Ordered By: Sarmad Luque on 01-24-2023 Erythrocyte distribution width (RBC) [Ratio] 13.5 % 11.9-15.3 [facility] Globulin Calc (S) [Mass/Vol] Ordered By: Sarmad Luque on 01-24-2023 Globulin (S) [Mass/Vol] 2.7 g/dL [facility] Glucose [Mass/volume] in Ser um or PlasmaOrdered By: Sarmad Luque on 01-24-2023 Glucose [Mass/Vol] 89 mg/dL 70-100 [facility] Comment on above: ADA recommended refe rence rangeRandom Glucose Reference Range is dependent on time and content of last meal. Glucose of more than 200 mg/dL in a nonstressed, ambulatory subject supports the diagnosis of Diabetes Mellitus. HCG ( test) IAshane d Ql (U)Ordered By: Sarmad Luque on 01-24-2023 HCG ( test) Ql (U) Positive [facility] HCG,Quantitativeon 3 HCG,Quantitative 120.64 m[iU]/mL Normal Fir [facility] Comment on above: Result Comment: Appr oximate Approximate hCG Gestational Age Range (mIU/ml) (weeks) 0.2-1 5-50 1-2 50-500 2-3 100-5,000 3-4 500-10,000 4-5 1,000-50,000 5-6 10,000-100,000 6-8 15,000-200,000 8-12 10,000-100,000 PERFORMED BY: [address] [place] [address] PATHOLOGIST MONITORING MANAGER JERRY CASTRO M.D. Performed By: #### H CGQNT ####[place] [id number] [facility] HCG,Urineon 01-24-2023 Beta HCG ( test) Ql (U) Positive [facility] Comment on above: Order Comment: Name Collection Type:: Clean-Voided Midstream Result Comment: PERF ORMED BY: [address] [place] [address] PATHOLOGIST MONITORING MANAGER JERRY CASTRO M.D. Performed By: #### A DDONUAPLUSATOK[facility] [place] ####[place] [id number] [facility] Hematocrit Auto (Bld) [Volum e fraction]Ordered By: Sarmad Luque on 01-24-2023 Hematocrit (Bld) [Volume fraction] 41.4 % 34.0-46.4 [facility] Hemoglobin [Mass/volume] in BloodOrdered By: Sarmad Luque on 01-24-2023 Hemoglobin (Bld) [Mass/Vol] 14.1 g/dL 11.8-15.4 [facility] Hepatic Panelon 01-24-2023 Albumin [Mass/Vol] 4.7 g/dL Normal 3.5-5.7 [facility] Comment on above: Performed By: #### F FN #### [address] Albumin/Globulin [Mass ratio] 1.7 {ratio} Normal [facility] Comment on above: Performed By: #### F FN #### [address] ALP [Catalytic activity/Vol] 71 U/L Normal 34-104 [facility] Comment on above: Performed By: #### F FN #### [facility] [address] ALT [Catalytic activity/Vol] 20 U/L Normal 7-52 [facility] Comment on above: Performed By: #### F FN #### [address] AST [Catalytic activity/Vol] 14 U/L Normal 13-39 [facility] Comment on above: Performed By: #### F FN #### [address] Bilirubin [Mass/Vol] 0.9 mg/dL Normal 0.3-1.0 [facility] Comment on above: Performed By: #### F FN #### [address] Bilirubin,Indirect 0.7 mg/dL Normal [facility] Comment on above: Performed By: #### F FN #### [address] Bilirubin.indirect [Mass/Vol] 0.20 mg/dL High 0.03-0.18 [facility] Comment on above: Performed By: #### F FN #### [address] Globulin (S) [Mass/Vol] 2.7 g/dL Normal [facility] Comment on above: Performed By: #### F FN #### [address] Protein [Mass/Vol] 7.4 g/dL Normal 6.4-8.9 [facility] Comment on above: Performed By: #### F FN #### [address] Ketones Auto test strip (U) [Mass/Vol]Ordered By: Sarmad Luque on 01-24-2023 Ketones (U) [Mass/Vol] Trace Negative [facility] - UrinalysisOrder ed By: Sarmad Luque on 01-24-2023 Hyaline casts LM Ql (Urine sed) 0-8 [LPF] 0-8 [facility] Leukocytes [#/volume] correc mague for nucleated erythrocytes in Blood by Automated counOrdered By: Sarmad Luque on 01-24-2023 WBC corrected for nucl RBC Auto (Bld) [#/Vol] 7.4 10*3/uL 3.8-11.6 [facility] Lipaseon 01-24-2023 Lipase [Catalytic activity/Vol] 47.0 U/L Normal 11.0-82.0 [facility] Comment on above: Result Comment: PERF ORMED BY: [facility] [address] [place] [id number] PATHOLOGIST MONITORING MANAGER JERRY CASTRO M.D. Performed By: #### C BC, LIPASE, BMP, HEPATIC ####[facility] [id number] [place] [address] [facility] Lipase [Enzymatic activity/v olume] in Serum or PlasmaOrdered By: Sarmad Luque on 01-24-2023 Lipase [Catalytic activity/Vol] 47.0 U/L 11.0-82.0 [facility] Lymphocytes Auto (Bld) [#/Vo l]Ordered By: Sarmad Luque on 01-24-2023 Lymphocytes (Bld) [#/Vol] 2.4 10*3/uL 1.00-4.8 [facility] Lymphocytes/100 WBC Auto (Bl d)Ordered By: Sarmad Luque on 01-24-2023 Lymphocytes/100 WBC (Bld) 31.9 % . [facility] MCH Auto (RBC) [Entitic mass ]Ordered By: Sarmad Luque on 01-24-2023 MCH (RBC) [Entitic mass] 28.8 pg 24.7-34.3 [facility] MCHC Auto (RBC) [Mass/Vol]Or dered By: Sarmad Luque on 01-24-2023 MCHC (RBC) [Mass/Vol] 34.1 g/dL 32.0-35.0 [facility] MCV Auto (RBC) [Entitic vol] Ordered By: Sarmad Luque on 01-24-2023 MCV (RBC) [Entitic vol] 84.3 fL 80-100 [facility] Monocyte distribution width [Entitic volume] in Blood by AutomatedOrdered By: Sarmad Luque on 01-24-2023 Monocyte distribution width Auto (Bld) [Entitic vol] 17.21 % 0.00-20.00 [facility] Monocytes Auto (Bld) [#/Vol] Ordered By: Sarmad Luque on 01-24-2023 Monocytes (Bld) [#/Vol] 0.5 10*3/uL 0.0-0.8 [facility] Monocytes/100 WBC Auto (Bld) Ordered By: Sarmad Luque on 01-24-2023 Monocytes/100 WBC (Bld) 7.3 % . [facility] Neutrophils Auto (Bld) [#/Vo l]Ordered By: Sarmad Luque on 01-24-2023 Neutrophils (Bld) [#/Vol] 4.3 10*3/uL 1.8-7.7 [facility] Neutrophils/100 WBC Auto (Bl d)Ordered By: Sarmad Luque on 01-24-2023 Neutrophils/100 WBC (Bld) 58.7 % . [facility] Nitrite Test strip Ql (U)Ord ered By: Sarmad Luque on 01-24-2023 Nitrite Ql (U) Negative Negative [facility] No Panel InformationOrdered By: Sarmad Luque on 01-24-2023 Estimated GFR (CKD-EPI) > 60.0 mL/Min [facility] Creatinine Clearance (Chem 103.40 [facility] Nucleated erythrocytes [Pres ence] in Blood by Automated countOrdered By: Sarmad Luque on 01-24-2023 Nucleated RBC Auto Ql (Bld) 0.1 /100{WBC} 0-0.5 [facility] Platelet mean volume Auto (B ld) [Entitic vol]Ordered By: Sarmad Luque on 01-24-2023 Platelet mean volume (Bld) [Entitic vol] 9.2 fL 6.3-10.7 [facility] Platelets Auto (Bld) [#/Vol] Ordered By: Sarmad Luque on 01-24-2023 Platelets (Bld) [#/Vol] 222 10*3/uL 150-450 [facility] Potassium [Moles/volume] in Serum or PlasmaOrdered By: Sarmad Luque on 01-24-2023 Potassium [Moles/Vol] 3.4 mmol/L 3.5-5.1 [facility] Protein Auto test strip (U) [Mass/Vol]Ordered By: Sarmad Luque on 01-24-2023 Protein (U) [Mass/Vol] Trace mg/dL Negative [facility] Protein [Mass/volume] in Ser um or PlasmaOrdered By: Sarmad Luque on 01-24-2023 Protein [Mass/Vol] 7.4 g/dL 6.4-8.9 [facility] RBC Auto (Bld) [#/Vol]Ordere d By: Sarmad Luque on 01-24-2023 RBC (Bld) [#/Vol] 4.91 10*6/uL 3.60-5.00 [facility] Serum or plasma albumin/glob ulin mass ratioOrdered By: Sarmad Luque on 01-24-2023 Albumin/Globulin [Mass ratio] 1.7 {ratio} [facility] Serum or plasma anion gap de terminationOrdered By: Sarmad Luque on 01-24-2023 Anion gap [Moles/Vol] 11.4 mmol/L 6.0-15.0 [facility] Serum or plasma non-glucuron idated bilirubin measurement (mass/volume)Ordered By: Sarmad Luque on 01-24-2023 Bilirubin.indirect [Mass/Vol] 0.7 mg/dL [facility] Sodium [Moles/volume] in Ser um or PlasmaOrdered By: Sarmad Luque on 01-24-2023 Sodium [Moles/Vol] 138 mmol/L 136-145 [facility] Specific gravity Auto test s trip (U) [Rel density]Ordered By: Sarmad Luque on 01-24-2023 Specific gravity (U) [Rel density] 1.022 1.001-1.030 [facility] Squamous epithelial cells de tection in urine sediment by light microscopyOrdered By: Sarmad Luque on 01-24-2023 Epithelial cells.squamous LM Ql (Urine sed) 5-9 [HPF] 0-2 [facility] US OB transvaginalon 023 US OB transvaginal [facility] [place] [address] [place], [place] [id number] Ultrasound Report Signed Patient: Elyssa Smith MR#: [id number] : 1990 Acct:[id number] Age/Sex: 32 / F ADM Date: 01/24/23 Loc: ER Room: Type: [facility] ER Attending Dr: Ordering Provider: Sarmad Luque DO Date of Service: 01/24/23 US/US OB <= 14 weeks fetus: Abdominal Pain ([id number]) US/US OB transvaginal: PAIN Copies to: Sarmad Luque DO EXAMINATION TYPE: US OB <= 14 weeks fetus, US OB transvaginal Grayscale, color scale Doppler, vascular duplex analysis of the bilateral ovaries DATE OF EXAM ORDERED: 01/24/2023 10:53 AM HISTORY: Right flank, back, and groin pain, history of renal stones, positive beta hCG COMPARISON: NONE TECHNIQUE: Realtime Transvaginal and Transabdominal imaging was performed. Transvaginal imaging was utilized to better evaluate the ovaries and the endometrial stripe. Grayscale, color scale Doppler, vascular duplex analysis of the bilateral ovaries was performed to assess blood flow. FINDINGS: The uterus measures 8.9 x 3.5 x 4.7 cm. There is a calcified structure measuring up to 1.8 cm presumably representing a calcified fibroid. Endometrium: Normal thickness and appearance. The endometrium measures 4 mm in thickness. No evidence of intrauterine on the current study. Ovaries: The visualized ovaries are within normal limits for songraphic evaluation. Right Ovary measurements: 3.4 x 2.0 x 3.1 cm Left Ovary measurements: 2.1 x 0.9 x 1.2 cm No abnormal adnexal mass is seen. No free fluid in the pelvic cul-de-sac. Vascular duplex analysis of the bilateral ovaries demonstrates normal blood flow without evidence of ovarian ischemia. US/US OB <= 14 weeks fetus IMPRESSION: No evidence of intrauterine . Follow-up with serial beta hCG and ultrasound is recommended. Findings suggest a calcified uterine fibroid measuring up to 1.8 cm in greatest dimension. No evidence of ovarian ischemia. Impression dictated by: Carrillo Ziegler M.D.01/24/2023 2:06 PM Dictation Location: [facility] Tech: Ashely Doll Transcribed By: SILVINA 01/24/231405 Dictated By: Carrillo Ziegler II, MD 01/24/231 Signed By: 01/24/23 140 Normal [facility] US renal BIon 01-24-2023 US renal BI [facility] [address] Ultrasound Report Signed Patient: Elyssa Smith MR#: [id number] : 1990 Acct:[id number] Age/Sex: 32 / F ADM Date: 01/24/23 Loc: ER Room: Type: [facility] ER Attending Dr: Ordering Provider: Sarmad Luque DO Date of Service: 01/24/23 US/US renal BI: flank pain Hx kidney stone R flank Copies to: Sarmad Luque DO US renal BI 01/24/2023 10:53 AM SIGNS AND SYMPTOMS: flank pain Hx kidney stone R flank COMPARISON: CT 05/05/2019. FINDINGS: Right kidney measures 11.93 cm x 5.28 cm x 5.41 cm . There is right-sided hydronephrosis. There is no evidence of mass. Left kidney measures 11.68 cm x 4.9 cm x 5.15 cm . No hydronephrosis or mass. The urinary bladder is morphologically normal. No free fluid is seen in the pelvis. Before voiding, the bladder measures 4.37 cm x 3.32 cm x 7.18 cm , which corresponds to an estimated volume of 54.54 mL . After voiding, the bladder has an estimated volume of 16 .mL US/US renal BI IMPRESSION: There is right-sided hydronephrosis. This is similar to that seen on the prior CT. There is no evidence of mass. Impression dictated by: Carrillo Ziegler M.D.01/24/2023 2:12 PM Dictation Location: [facility] Tech: Ashely Doll Transcribed By: SILVINA 01/24/23 1412 Dictated By: Carrillo Ziegler II, MD 01/24/23 1410 Signed By: 01/24/23 1412 Normal [facility] Urea nitrogen [Mass/volume] in Serum or PlasmaOrdered By: Sarmad Luque on 01-24-2023 Urea nitrogen [Mass/Vol] 6 mg/dL 725 [facility] Urine bacteria detection by automated methodOrdered By: Sarmad Luque on 01-24-2023 Bacteria Auto Ql (U) None seen None Seen [facility] Urine clarity by refractomet ry automatedOrdered By: Sarmad Luque on 01-24-2023 Clarity Refractometry automated (U) Cloudy Clear [facility] Urine glucose measurement by automated test strip (mass/volume)Ordered By: Sarmad Luque on 01-24-2023 Glucose Auto test strip (U) [Mass/Vol] Normal mg/dL Normal [facility] Urine hemoglobin detection b y automated test stripOrdered By: Sarmad Luque on 01-24-2023 Hemoglobin Auto test strip Ql (U) 2+ Negative [facility] Urine leukocyte esterase det ection by automated test stripOrdered By: Sarmad Luque on 01-24-2023 Leukocyte esterase Auto test strip Ql (U) 1+ Negative [facility] Urobilinogen Auto test strip (U) [Mass/Vol]Ordered By: Sarmad Luque on 01-24-2023 Urobilinogen (U) [Mass/Vol] Normal mg/dL Normal [facility] WBC Auto (Bld) [#/Vol]Ordere d By: Sarmad Luque on 01-24-2023 WBC (Bld) [#/Vol] 7.4 10*3/uL 3.8-11.6 [facility] pH Auto test strip (U)Ordere d By: Sarmad Luque on 01-24-2023 pH (U) 6.0 [pH] 5.0-9.0 [facility] ALFRED with Reflexon 10-27-2022 ALFRED with Reflex Negative Normal Negative [facility] Comment on above: Result Comment: Perf ormed at: - [facility] [address] [id number] Ele[employer]ated Motorman: Ismael Suh PhD, Phone: [phone] PERFORMED BY: [place] [address] PATHOLOGIST MONITORING MANAGER JERRY CASTRO M.D. Performed By: #### F FN #### [address] Alanine aminotransferase [En zymatic activity/volume] in Serum or PlasmaOrdered By: Page Magaña on 10-27-2022 ALT [Catalytic activity/Vol] 30 U/L 7-52 [facility] Albumin [Mass/volume] in Ser um or Plasma by Bromocresol green (BCG) dye binding methoOrdered By: Page Magaña on 10-27-2022 Albumin BCG dye [Mass/Vol] 4.2 g/dL 3.5-5.7 [facility] Alkaline phosphatase [Enzyma tic activity/volume] in Serum or PlasmaOrdered By: Page Magaña on 10-27-2022 ALP [Catalytic activity/Vol] 86 U/L 34-104 [facility] Aspartate aminotransferase [ Enzymatic activity/volume] in Serum or PlasmaOrdered By: Page Magaña on 10-27-2022 AST [Catalytic activity/Vol] 17 U/L 13-39 [facility] Basophils Auto (Bld) [#/Vol] Ordered By: Page Magaña on 10-27-2022 Basophils (Bld) [#/Vol] 0.1 10*3/uL 0.0-0.2 [facility] Basophils/100 WBC Auto (Bld) Ordered By: Page Magaña on 10-27-2022 Basophils/100 WBC (Bld) 0.6 % . [facility] Bilirubin.total [Mass/volume ] in Serum or PlasmaOrdered By: Page Magaña on 10-27-2022 Bilirubin [Mass/Vol] 0.6 mg/dL 0.3-1.0 [facility] Calcium [Mass/volume] in Ser um or PlasmaOrdered By: Page Magaña on 10-27-2022 Calcium [Mass/Vol] 9.0 mg/dL 8.6-10.3 [facility] Carbon dioxide, total [Moles /volume] in Serum or PlasmaOrdered By: Page Magaña on 10-27-2022 CO2 [Moles/Vol] 24.7 mmol/L 21.0-31.0 [facility] Chloride [Moles/volume] in S gris or PlasmaOrdered By: Page Magaña on 10-27-2022 Chloride [Moles/Vol] 107 mmol/L 98-107 [facility] Cholesterol [Mass/volume] in Serum or PlasmaOrdered By: Page Magaña on 10-27-2022 Cholesterol [Mass/Vol] 209 mg/dL 140-200 [facility] Comment on above: Chol less than 200 m g/dl low riskChol 201-239 mg/dl borderline riskChol 240 mg/dl and greater high risk Cholesterol in LDL Calc [Mas s/Vol]Ordered By: Page Magaña on 10-27-2022 Cholesterol in LDL [Mass/Vol] 155 mg/dL 0-100 [facility] Comment on above: LDL ATP III CLASSIFI CATIONLDL less than 100 mg/dL OptimalLDL 100-129 mg/dL Near or above optimalLDL 130-159 mg/dL Borderline highLDL 160-189 mg/dL HighLDL greater than 189 mg/dL Very high Cholesterol in VLDL Calc [Ma ss/Vol]Ordered By: Page Magaña on 10-27-2022 Cholesterol in VLDL [Mass/Vol] 11 mg/dL [facility] Complete Blood Count Auto Di ffon 10-27-2022 Basophils (Bld) [#/Vol] 0.1 10*3/uL Normal 0.0-0.2 [facility] Comment on above: Result Comment: PERF ORMED BY: [place] [address] PATHOLOGIST MONITORING MANAGER JERRY CASTRO M.D. Performed By: #### L IPID, CMP, CBC, TSH3 wRFLX, [id number] #### [facility] [address] [place] [address] [place] #### ALFRED CHOICE, RA #### [facility] , Basophils/100 WBC (Bld) 0.6 % Normal . [facility] Comment on above: Performed By: #### L IPID, CMP, CBC, TSH3 wRFLX, [id number] #### [place] [address] [place] #### ALFRED CHOICE, RA #### [facility] , Eosinophils (Bld) [#/Vol] 0.1 10*3/uL Normal 0.0-0.45 [facility] Comment on above: Performed By: #### L IPID, CMP, CBC, TSH3 wRFLX, [id number] #### [place] [address] [place] #### ALFRED CHOICE, RA #### [facility] , Eosinophils/100 WBC (Bld) 1.6 % Normal . [facility] Comment on above: Performed By: #### L IPID, CMP, CBC, TSH3 wRFLX, [id number] #### [place] [address] [place] #### ALFRED CHOICE, RA #### [facility] , Erythrocyte distribution width (RBC) [Ratio] 14.4 % Normal 11.9-15.3 [facility] Comment on above: Performed By: #### L IPID, CMP, CBC, TSH3 wRFLX, [id number] #### [place] [address] [place] #### ALFRED CHOICE, RA #### [facility] , Hematocrit (Bld) [Volume fraction] 40.5 % Normal 34.0-46.4 [facility] Comment on above: Performed By: #### L IPID, CMP, CBC, TSH3 wRFLX, [id number] #### [place] [address] [place] #### ALFRED CHOICE, RA #### [facility] , Hemoglobin (Bld) [Mass/Vol] 13.5 g/dL Normal 11.8-15.4 [facility] Comment on above: Performed By: #### L IPID, CMP, CBC, TSH3 wRFLX, [id number] #### [place] [address] [place] #### ALFRED CHOICE, RA #### [facility] , Lymphocytes (Bld) [#/Vol] 2.8 10*3/uL Normal 1.00-4.8 [facility] Comment on above: Performed By: #### L IPID, CMP, CBC, TSH3 wRFLX, [id number] #### [address] #### ALFRED CHOICE, RA #### [facility] , Lymphocytes/100 WBC (Bld) 30.3 % Normal . [facility] Comment on above: Performed By: #### L IPID, CMP, CBC, TSH3 wRFLX, [id number] #### [place] [address] [place] #### ALFRED CHOICE, RA #### [facility] , MCH (RBC) [Entitic mass] 28.1 pg Normal 24.7-34.3 [facility] Comment on above: Performed By: #### L IPID, CMP, CBC, TSH3 wRFLX, [id number] #### [place] [address] [place] #### ALFRED CHOICE, RA #### [facility] , MCV (RBC) [Entitic vol] 84.6 fL Normal 80-100 [facility] Comment on above: Performed By: #### L IPID, CMP, CBC, TSH3 wRFLX, [id number] #### [facility] [address] [place] [address] [place] #### ALFRED CHOICE, RA #### [facility] , Mean Corpuscular HGB Conc 33.3 g/dL Normal 32.0-35.0 [facility] Comment on above: Performed By: #### L IPID, CMP, CBC, TSH3 wRFLX, [id number] #### [place] [address] [place] #### ALFRED CHOICE, RA #### [facility] , Monocytes (Bld) [#/Vol] 0.6 10*3/uL Normal 0.0-0.8 [facility] Comment on above: Performed By: #### L IPID, CMP, CBC, TSH3 wRFLX, [id number] #### [facility] [address] [place] [address] [place] #### ALFRED CHOICE, RA #### [facility] , Monocytes/100 WBC (Bld) 6.7 % Normal . [facility] Comment on above: Performed By: #### L IPID, CMP, CBC, TSH3 wRFLX, [id number] #### [place] [address] [place] #### ALFRED CHOICE, RA #### [facility] , Neutrophils (Bld) [#/Vol] 5.5 10*3/uL Normal 1.8-7.7 [facility] Comment on above: Performed By: #### L IPID, CMP, CBC, TSH3 wRFLX, [id number] #### [place] [address] [place] #### ALFRED CHOICE, RA #### [facility] , Neutrophils/100 WBC (Bld) 60.8 % Normal . [facility] Comment on above: Performed By: #### L IPID, CMP, CBC, TSH3 wRFLX, [id number] #### [facility] [address] [place] [address] [place] #### ALFRED CHOICE, RA #### [facility] , NRBC% 0.3 /100{WBC} Normal 0-0.5 [facility] Comment on above: Performed By: #### L IPID, CMP, CBC, TSH3 wRFLX, [id number] #### [place] [address] [place] #### ALFRED CHOICE, RA #### [facility] , Platelet mean volume (Bld) [Entitic vol] 8.9 fL Normal 6.3-10.7 [facility] Comment on above: Performed By: #### L IPID, CMP, CBC, TSH3 wRFLX, [id number] #### [facility] [address] [place] [address] [place] #### ALFRED CHOICE, RA #### [facility] , Platelets (Bld) [#/Vol] 246 10*3/uL Normal 150-450 [facility] Comment on above: Performed By: #### L IPID, CMP, CBC, TSH3 wRFLX, [id number] #### [address] #### ALFRED CHOICE, RA #### [facility] , RBC (Bld) [#/Vol] 4.79 10*6/uL Normal 3.60-5.00 [facility] Comment on above: Performed By: #### L IPID, CMP, CBC, TSH3 wRFLX, [id number] #### [facility] [address] [place] [address] [place] #### ALFRED CHOICE, RA #### [facility] , WBC (Bld) [#/Vol] 9.1 10*3/uL Normal 3.8-11.6 [facility] Comment on above: Performed By: #### L IPID, CMP, CBC, TSH3 wRFLX, [id number] #### [facility] [address] [place] [address] [place] #### ALFRED CHOICE, RA #### [facility] , Comprehensive Metabolic Pane mauricio 10-27-2022 Albumin [Mass/Vol] 4.2 g/dL Normal 3.5-5.7 [facility] Comment on above: Order Comment: PT IS FASTING Performed By: #### L IPID, CMP, CBC, TSH3 wRFLX, [id number] #### [facility] [address] [place] [address] #### ALFRED CHOICE, RA #### [facility] , Albumin/Globulin [Mass ratio] 1.8 {ratio} Normal [facility] Comment on above: Order Comment: PT IS FASTING Performed By: #### L IPID, CMP, CBC, TSH3 wRFLX, [id number] #### [facility] [address] [place] [address] [place] #### ALFRED CHOICE, RA #### [facility] , ALP [Catalytic activity/Vol] 86 U/L Normal 34-104 [facility] Comment on above: Order Comment: PT IS FASTING Performed By: #### L IPID, CMP, CBC, TSH3 wRFLX, [id number] #### [address] #### ALFRED CHOICE, RA #### [facility] , ALT [Catalytic activity/Vol] 30 U/L Normal 7-52 [facility] Comment on above: Order Comment: PT IS FASTING Performed By: #### L IPID, CMP, CBC, TSH3 wRFLX, [id number] #### [address] #### ALFRED CHOICE, RA #### [facility] , Anion gap [Moles/Vol] 10.6 mmol/L Normal 6.0-15.0 [facility] Comment on above: Order Comment: PT IS FASTING Performed By: #### L IPID, CMP, CBC, TSH3 wRFLX, [id number] #### [facility] [address] [place] [address] [place] #### ALFRED CHOICE, RA #### [facility] , AST [Catalytic activity/Vol] 17 U/L Normal 13-39 [facility] Comment on above: Order Comment: PT IS FASTING Performed By: #### L IPID, CMP, CBC, TSH3 wRFLX, [id number] #### [facility] [address] [place] [address] #### ALFRED CHOICE, RA #### [facility] , Bilirubin [Mass/Vol] 0.6 mg/dL Normal 0.3-1.0 [facility] Comment on above: Order Comment: PT IS FASTING Performed By: #### L IPID, CMP, CBC, TSH3 wRFLX, [id number] #### [facility] [address] [place] [address] [place] #### ALFRED CHOICE, RA #### [facility] , Calcium [Mass/Vol] 9.0 mg/dL Normal 8.6-10.3 [facility] Comment on above: Order Comment: PT IS FASTING Performed By: #### L IPID, CMP, CBC, TSH3 wRFLX, [id number] #### [facility] [address] [place] [address] [place] #### ALFRED CHOICE, RA #### [facility] , Chloride [Moles/Vol] 107 mmol/L Normal 98-107 [facility] Comment on above: Order Comment: PT IS FASTING Performed By: #### L IPID, CMP, CBC, TSH3 wRFLX, [id number] #### [place] [address] [place] #### ALFRED CHOICE, RA #### [facility] , CO2 [Moles/Vol] 24.7 mmol/L Normal 21.0-31.0 [facility] Comment on above: Order Comment: PT IS FASTING Performed By: #### L IPID, CMP, CBC, TSH3 wRFLX, [id number] #### [facility] [address] [place] [address] [place] #### ALFRED CHOICE, RA #### [facility] , Creatinine [Mass/Vol] 0.62 mg/dL Normal 0.60-1.20 [facility] Comment on above: Order Comment: PT IS FASTING Performed By: #### L IPID, CMP, CBC, TSH3 wRFLX, [id number] #### [place] [address] [place] #### ALFRED CHOICE, RA #### [facility] , GFR/1.73 sq M.predicted MDRD (S/P/Bld) [Vol rate/Area] mL/min/{1.73_m2} [facility] Comment on above: Order Comment: PT IS FASTING Performed By: #### L IPID, CMP, CBC, TSH3 wRFLX, [id number] #### [place] [address] [place] #### ALFRED CHOICE, RA #### [facility] , Globulin (S) [Mass/Vol] 2.3 g/dL Normal [facility] Comment on above: Order Comment: PT IS FASTING Performed By: #### L IPID, CMP, CBC, TSH3 wRFLX, [id number] #### [place] [address] [place] #### ALFRED CHOICE, RA #### [facility] , Glucose [Mass/Vol] 93 mg/dL Normal 70-100 [facility] Comment on above: Order Comment: PT IS FASTING Result Comment: [place] Glucose Reference Range is dependent on time and content of last meal. Glucose of more than 200 mg/dL in a nonstressed, ambulatory subject supports the diagnosis of Diabetes Mellitus. ADA recommended reference range Performed By: #### L IPID, CMP, CBC, TSH3 wRFLX, [id number] #### [place] [address] [place] #### ALFRED CHOICE, RA #### [facility] , Potassium [Moles/Vol] 4.3 mmol/L Normal 3.5-5.1 [facility] Comment on above: Order Comment: PT IS FASTING Performed By: #### L IPID, CMP, CBC, TSH3 wRFLX, [id number] #### [address] [place] [address] [place] #### ALFRED CHOICE, RA #### [facility] , Protein [Mass/Vol] 6.5 g/dL Normal 6.4-8.9 [facility] Comment on above: Order Comment: PT IS FASTING Performed By: #### L IPID, CMP, CBC, TSH3 wRFLX, [id number] #### [facility] [address] [place] [address] [place] #### ALFRED CHOICE, RA #### [facility] , Sodium [Moles/Vol] 138 mmol/L Normal 136-145 [facility] Comment on above: Order Comment: PT IS FASTING Performed By: #### L IPID, CMP, CBC, TSH3 wRFLX, [id number] #### [facility] [address] [place] [address] [place] #### ALFRED CHOICE, RA #### [facility] , Urea nitrogen [Mass/Vol] 12 mg/dL Normal 7-25 [facility] Comment on above: Order Comment: PT IS FASTING Performed By: #### L IPID, CMP, CBC, TSH3 wRFLX, [id number] #### [facility] [address] [place] [address] [place] #### ALFRED CHOICE, RA #### [facility] , Creatinine [Mass/volume] in Serum or PlasmaOrdered By: Page Magaña on 10-27-2022 Creatinine [Mass/Vol] 0.62 mg/dL 0.60-1.20 [facility] Eosinophils Auto (Bld) [#/Vo l]Ordered By: Page Magaña on 10-27-2022 Eosinophils (Bld) [#/Vol] 0.1 10*3/uL 0.0-0.45 [facility] Eosinophils/100 WBC Auto (Bl d)Ordered By: Page Magaña on 10-27-2022 Eosinophils/100 WBC (Bld) 1.6 % . [facility] Erythrocyte distribution wid th Auto (RBC) [Ratio]Ordered By: Page Magaña on 10-27-2022 Erythrocyte distribution width (RBC) [Ratio] 14.4 % 11.9-15.3 [facility] Globulin Calc (S) [Mass/Vol] Ordered By: Page Magaña on 10-27-2022 Globulin (S) [Mass/Vol] 2.3 g/dL [facility] Glucose [Mass/volume] in Ser um or PlasmaOrdered By: Page Magaña on 10-27-2022 Glucose [Mass/Vol] 93 mg/dL 70-100 [facility] Comment on above: ADA recommended refe rence rangeRandom Glucose Reference Range is dependent on time and content of last meal. Glucose of more than 200 mg/dL in a nonstressed, ambulatory subject supports the diagnosis of Diabetes Mellitus. Hematocrit Auto (Bld) [Volum e fraction]Ordered By: Page Magaña on 10-27-2022 Hematocrit (Bld) [Volume fraction] 40.5 % 34.0-46.4 [facility] Hemoglobin [Mass/volume] in BloodOrdered By: Page Magaña on 10-27-2022 Hemoglobin (Bld) [Mass/Vol] 13.5 g/dL 11.8-15.4 [facility] Leukocytes [#/volume] correc mague for nucleated erythrocytes in Blood by Automated counOrdered By: Page Magaña on 10-27-2022 WBC corrected for nucl RBC Auto (Bld) [#/Vol] 9.1 10*3/uL 3.8-11.6 [facility] Lipid Panelon 10-27-2022 Cholesterol [Mass/Vol] 209 mg/dL High 140-200 [facility] Comment on above: Order Comment: PT IS FASTING Result Comment: Chol less than 200 mg/dl low risk Chol 201-239 mg/dl borderline risk Chol 240 mg/dl and greater high risk Performed By: #### L IPID, CMP, CBC, TSH3 wRFLX, [id number] #### [facility] [address] #### ALFRED CHOICE, RA #### [facility] , Cholesterol in HDL [Mass/Vol] 43 mg/dL Normal 35-85 [facility] Comment on above: Order Comment: PT IS FASTING Result Comment: HDL CHOL ATP-III CLASSIFICATION Cardiovascular Risk HDL > or equal to 60 mg/dL LOW HDL < 40 mg/dL HIGH Performed By: #### L IPID, CMP, CBC, TSH3 wRFLX, [id number] #### [place] [address] [place] #### ALFRED CHOICE, RA #### [facility] , Cholesterol.total/Poonam sterol in HDL [Mass ratio] 4.9 {ratio} Normal <5.0 [facility] Comment on above: Order Comment: PT IS FASTING Performed By: #### L IPID, CMP, CBC, TSH3 wRFLX, [id number] #### [address] #### ALFRED CHOICE, RA #### [facility] , LDL Cholesterol,Calculated 155 mg/dL High 0-100 [facility] Comment on above: Order Comment: PT IS FASTING Result Comment: LDL ATP III CLASSIFICATION LDL less than 100 mg/dL Optimal LDL 100-129 mg/dL Near or above optimal LDL 130-159 mg/dL Borderline high LDL 160-189 mg/dL High LDL greater than 189 mg/dL Very high Performed By: #### L IPID, CMP, CBC, TSH3 wRFLX, [id number] #### [place] [address] [place] #### ALFRED CHOICE, RA #### [facility] , Triglyceride w/Reflex 55 mg/dL Normal 0-149 [facility] Comment on above: Order Comment: PT IS FASTING Result Comment: TRIG ATP III CLASSIFICATION TRIG less than 150 mg/dL Normal TRIG 150-199 mg/dL Borderline high TRIG 200-500 mg/dL High TRIG greater than 500 mg/dL Very high Standard traceable to the Center for Disease Conrtrol and Prevention (CDC) test method. Performed By: #### L IPID, CMP, CBC, TSH3 wRFLX, [id number] #### [place] [address] [place] #### ALFRED CHOICE, RA #### [facility] , VLDL CHOLESTEROL 11 mg/dL Normal [facility] Comment on above: Order Comment: PT IS FASTING Performed By: #### L IPID, CMP, CBC, TSH3 wRFLX, [id number] #### [facility] [address] #### ALFRED CHOICE, RA #### [facility] , Lymphocytes Auto (Bld) [#/Vo l]Ordered By: Page Magaña on 10-27-2022 Lymphocytes (Bld) [#/Vol] 2.8 10*3/uL 1.00-4.8 [facility] Lymphocytes/100 WBC Auto (Bl d)Ordered By: Page Magaña on 10-27-2022 Lymphocytes/100 WBC (Bld) 30.3 % . [facility] MCH Auto (RBC) [Entitic mass ]Ordered By: Page Magaña on 10-27-2022 MCH (RBC) [Entitic mass] 28.1 pg 24.7-34.3 [facility] MCHC Auto (RBC) [Mass/Vol]Or dered By: Page Magaña on 10-27-2022 MCHC (RBC) [Mass/Vol] 33.3 g/dL 32.0-35.0 [facility] MCV Auto (RBC) [Entitic vol] Ordered By: Page Magaña on 10-27-2022 MCV (RBC) [Entitic vol] 84.6 fL 80-100 [facility] Monocytes Auto (Bld) [#/Vol] Ordered By: Page Magaña on 10-27-2022 Monocytes (Bld) [#/Vol] 0.6 10*3/uL 0.0-0.8 [facility] Monocytes/100 WBC Auto (Bld) Ordered By: Page Magaña on 10-27-2022 Monocytes/100 WBC (Bld) 6.7 % . [facility] Neutrophils Auto (Bld) [#/Vo l]Ordered By: Page Magaña on 10-27-2022 Neutrophils (Bld) [#/Vol] 5.5 10*3/uL 1.8-7.7 [facility] Neutrophils/100 WBC Auto (Bl d)Ordered By: Page Magaña on 10-27-2022 Neutrophils/100 WBC (Bld) 60.8 % . [facility] No Panel InformationOrdered By: Page Magaña on 10-27-2022 Estimated GFR (CKD-EPI) > 60.0 mL/Min [facility] Creatinine Clearance (Chem N/A [facility] Nucleated erythrocytes [Pres ence] in Blood by Automated countOrdered By: Page Magaña on 10-27-2022 Nucleated RBC Auto Ql (Bld) 0.3 /100{WBC} 0-0.5 [facility] Platelet mean volume Auto (B ld) [Entitic vol]Ordered By: Page Magaña on 10-27-2022 Platelet mean volume (Bld) [Entitic vol] 8.9 fL 6.3-10.7 [facility] Platelets Auto (Bld) [#/Vol] Ordered By: Page Magaña on 10-27-2022 Platelets (Bld) [#/Vol] 246 10*3/uL 150-450 [facility] Potassium [Moles/volume] in Serum or PlasmaOrdered By: Page Magaña on 10-27-2022 Potassium [Moles/Vol] 4.3 mmol/L 3.5-5.1 [facility] Protein [Mass/volume] in Ser um or PlasmaOrdered By: Page Magaña on 10-27-2022 Protein [Mass/Vol] 6.5 g/dL 6.4-8.9 [facility] RBC Auto (Bld) [#/Vol]Ordere d By: Page Magaña on 10-27-2022 RBC (Bld) [#/Vol] 4.79 10*6/uL 3.60-5.00 [facility] Rheumatoid Factoron 10-28-19 Rheumatoid Factor <10.0 Normal <14.[address] [facility] Comment on above: Result Comment: Perf ormed at: CB - [facility] [address] [id number] Elevated Motorman: Ismael Suh PhD, Phone: [phone] Performed By: #### F FN #### [facility] [address] Serum or plasma albumin/glob ulin mass ratioOrdered By: Page Magaña on 10-27-2022 Albumin/Globulin [Mass ratio] 1.8 {ratio} [facility] Serum or plasma anion gap de terminationOrdered By: Page Magaña on 10-27-2022 Anion gap [Moles/Vol] 10.6 mmol/L 6.0-15.0 [facility] Serum or plasma high density lipoprotein (HDL) cholesterol measurementOrdered By: Page Magaña on 10-27-2022 Cholesterol in HDL [Mass/Vol] 43 mg/dL 35-85 [facility] Comment on above: HDL CHOL ATP-III CLA SSIFICATION Cardiovascular RiskHDL > or equal to 60 mg/dL LOWHDL < 40 mg/dL HIGH Serum or plasma total choles terol/high density lipoprotein (HDL) cholesterol mass ratOrdered By: Page Magaña on 10-27-2022 Cholesterol.total/Poonam sterol in HDL [Mass ratio] 4.9 {ratio} <5.0 [facility] Sodium [Moles/volume] in Ser um or PlasmaOrdered By: Page Magaña on 10-27-2022 Sodium [Moles/Vol] 138 mmol/L 136-145 [facility] Thyroid Stim Hormone w/Rflxo n 10-27-2022 Thyroid Stim Hormone w/Rflx 0.76 u[iU]/mL Normal 0.45-5.33 [facility] Comment on above: Order Comment: PT IS FASTING Performed By: #### L IPID, CMP, CBC, TSH3 wRFLX, [id number] #### [facility] [address] #### ALFRED CHRISTINA, RA #### [facility] , Thyrotropin [Units/volume] i n Serum or PlasmaOrdered By: Page Magaña on 10-27-2022 TSH Qn 0.76 m[IU]/L 0.45-5.33 [facility] Triglyceride [Mass/volume] i n Serum or PlasmaOrdered By: Page Magaña on 10-27-2022 Triglyceride [Mass/Vol] 55 mg/dL 0-149 [facility] Comment on above: TRIG ATP III CLASSIF ICATIONTRIG less than 150 mg/dL NormalTRIG 150-199 mg/dL Borderline highTRIG 200-500 mg/dL High TRIG greater than 500 mg/dL Very highStandard traceable to the Center for Disease Conrtrol and Prevention (CDC) test method. Urea nitrogen [Mass/volume] in Serum or PlasmaOrdered By: Page Magaña on 10-27-2022 Urea nitrogen [Mass/Vol] 12 mg/dL 7-25 [facility] Vitamin D 25 Hydroxy Totalon 10-27-2022 Vitamin D 25 Hydroxy Total 22.1 ng/mL Low 30-100 [facility] Comment on above: Order Comment: Comme nt patients 22 - 34 6/7 weeks prior to vaginal exam Result Comment: HARVINDER MIN D STATUS 25(OH)VITAMIN D RANGE (ng/mL) Deficient <20 Insufficient 20 to <30 Sufficient 30 to 100 Reference: Lino Pena, Gildardo MARTELL, et al. Evaluation,treatment, and prevention of vitamin D deficiency; an Endocrine Society clinical practice guideline. JCEM. 2010; 96(7):1911-30. PERFORMED BY: [place] [address] PATHOLOGIST MONITORING MANAGER JERRY CASTRO M.D. Performed By: #### F #### [address] Vitamin D+Metabolites [Mass/ volume] in Serum or PlasmaOrdered By: Page Magaña on 10-27-2022 Vitamin D+Metabolites [Mass/Vol] 22.1 ng/mL 30-100 [facility] Comment on above: VITAMIN D STATUS 25( [place])VITAMIN D RANGE (ng/mL) Deficient <20 Insufficient 20 to <30Sufficient 30 to 100Reference: Lino Pena, Gildardo MARTELL et al. Evaluation,treatment, and prevention of vitamin D deficiency; an Endocrine Society clinical practice guideline. JCEM. 2010; 96(7):1911-30. WBC Auto (Bld) [#/Vol]Ordere d By: Page Magaña on 10-27-2022 WBC (Bld) [#/Vol] 9.1 10*3/uL 3.8-11.6 [facility] Vital Signs Date Time Vital Sign Value Performing Clinician Facility 06-28-2023 05:30-0500 Body temperature 98.8 [degF] DO Sallie Owenslynette[facility]org[facility] Work Phone: [phone] [place] [address] 06-28-2023 05:30-0500 Diastolic blood pressure 79 mm[Hg] DO Sallie Magaña Work Phone: [phone] [place] [address] 06-28-2023 05:30-0500 Heart rate 80 /min DO Sallie [facility] Work Phone: [phone] [address] 06-28-2023 05:30-0500 Respiratory rate 20 /min DO Sallie Owens[facility] Work Phone: [phone] [address] 06-28-2023 05:30-0500 SaO2% (BldA) [Mass fraction] 98 % DO Sallie Magaña Work Phone: [phone] [place] [address] 06-28-2023 05:30-0500 Systolic blood pressure 121 mm[Hg] DO Sallie Magaña Work Phone: [phone] [place] [address] 06-26-2023 20:49-0500 Body height 152.4 cm DO Sallie Magaña Work Phone: [phone] [place] [address] 06-26-2023 20:49-0500 Body weight 74.38 kg DO Sallie Magaña Work Phone: [phone] [place] [address] 01-24-2023 13:44-0400 Diastolic blood pressure 73 mm[Hg] DO Sallie Owenslynetet[facility] Work Phone: [phone] [address] 01-24-2023 13:44-0400 Heart rate 104 /min DO Sallie Owensmelany Work Phone: [phone] [place] [address] 01-24-2023 13:44-0400 Respiratory rate 16 /min DO Sallie Owensmelany Work Phone: [facility] 01-24-2023 13:44-0400 SaO2% (BldA) [Mass fraction] 98 % DO Sallie Magaña Work Phone: [facility] 01-24-2023 13:44-0400 Systolic blood pressure 117 mm[Hg] DO Sallie Magaña Work Phone: [facility] 01-24-2023 10:11-0400 Body height 152.4 cm DO Sallie Magaña Work Phone: [facility] 01-24-2023 10:11-0400 Body temperature 98.5 [degF] DO Sallie Magaña Work Phone: [facility] 01-24-2023 10:11-0400 Body weight 67.58 kg DO Sallie Magaña Work Phone: [facility] 11-08-2022 15:30-0400 Body height 147.96 cm Hilario Reynolds Other [employer] [email or web address] Other 11-08-2022 15:30-0400 Body mass index (BMI) [Ratio] 34.23 kg/m2 Hilario Reynolds Other [employer] Other 11-08-2022 15:30-0400 Body weight 74.93 kg Hilario Reynolds Other [employer] Other 11-08-2022 15:30-0400 Diastolic blood pressure 90 mm[Hg] Hilario Reynolds Other [employer] Other 11-08-2022 15:30-0400 Respiratory rate 18 /min Hilario Reynolds Other [employer] Other 11-08-2022 15:30-0400 SaO2% (BldA) [Mass fraction] 97 % Hilario Reynolds Other [employer] [email or web address] Other 11-08-2022 15:30-0400 Systolic blood pressure 135 mm[Hg] Hilario Reynolds Other [email or web address] Other Encounters Encounter Date Encounter Type Care Provider Facility Start: 06-26-2023 End: 06-28-2023 ambulatory Sallie Magaña Facility:[facility] Start: 06-26-2023 End: 06-28-2023 Evaluation and management of inpatient DO Sallie Magaña Work Phone: [facility] Work Phone: Start: 06-26-2023 End: 06-28-2023 observation encounter DO Sallie Magaña Work Phone: [facility] Work Phone: Start: 06-06-2023 End: 06-06-2023 ambulatory Sallie Magaña Facility:[facility] Start: 06-06-2023 End: 06-06-2023 Patient encounter procedure DO Sallie Magaña Work Phone: [facility] Work Phone: Start: 05-29-2023 End: 05-29-2023 ambulatory BRANDON CAMARGO Not Available Start: 05-06-2023 End: 05-06-2023 ambulatory Sallie Magaña Facility:[facility] Start: 05-06-2023 End: 05-06-2023 ambulatory DO Sallie Magaña Work Phone: [facility] Work Phone: Start: 05-06-2023 End: 05-06-2023 Patient encounter procedure DO Sallie Magaña Work Phone: [facility] [place] Work Phone: Start: 01-24-2023 End: 01-24-2023 Emergency department patient visit DO Sallie Magaña Work Phone: [facility]-Emergency Room Work Phone: Start: 12-20-2022 End: 12-21-2022 ambulatory Hilario Reynolds Facility:[facility] Start: 12-20-2022 Registered Recurring DO Sallie Magaña Work Phone: [facility]-Weight Management Work Phone: Start: 11-08-2022 End: 11-08-2022 ambulatory Hilario Reynolds Other [employer] Other Start: 11-08-2022 Nutrition therapy Hilario Reynolds [facility] Start: 10-27-2022 End: 10-27-2022 ambulatory Sallie Packgeorgie Facility:[facility] Start: 10-27-2022 End: 10-27-2022 ambulatory DO Sallie Magaña Work Phone: [facility] Work Phone: Start: 10-27-2022 End: 10-27-2022 Patient encounter procedure DO Sallie Magaña Work Phone: [facility] [place] Work Phone: Procedures Date Procedure Procedure Detail Performing Clinician Start: 06-26-2023 Ultrasonography of b ilateral kidneys DO Sallie Magaña Work Phone: Plan of Treatment Date Care Activity Detail Author Start: 06-28-2023 [facility] Start: 06-26-2023 Referral to urologist [facility] Start: 06-26-2023 Hospital admission [facility] Start: 01-24-2023 Diagnostic ultrasoun d of gravid uterus [facility] Start: 01-24-2023 Ultrasonography of b ilateral kidneys US renal BI [facility] Start: 01-24-2023 US Kidney - bilateral [facility] Start: 01-24-2023 Transvaginal obstetr ic ultrasonography [facility] Cefuroxime free [Mas s/volume] in Serum or Plasma [facility] Patient Education [facility] Work Phone: Patient referral [facility] Work Phone: Rheumatoid factor [Units/volume] in Serum or Plasma [facility] Payers Date Payer Category Payer Self-pay [id number] 2022 Unknown [id number] 1990 Unknown [id number] Medicaid [employer] [id number] Private Health Insurance [facility] [id number] Unknown [id number] Unknown [id number] Unknown [id number] Unknown [id number] 531 Unknown [id number] 531 Unknown [id number] 531 Unknown [id number] 531 Worker's Compensation [facility] [place] [id number] Social History Date Type Detail Facility Start: 05-01-2020 End: 06-27-2023 Tobacco smoking status NHIS Never smoked tobacco (finding) [facility] Start: 1990 Sex Assigned At Female F [facility] Sex Assigned At Sex Assigned At Bir th Merged With [facility] [email or web address] Other Goals Date Patient Goal Desired Activity /State Consult note 06-27-2023 Note Date & Type Note Facility 06-27-2023 Consult note Note Date/Time June 27, 2023 2:48pm [facility] [address] [place] [address] Urology Consult Note Signed Patient: Elyssa Smith MR#: [id number] : 1990 Acct:[id number] Age/Sex: 33 / F Adm Date: 3 Loc: Room: 6K0042-3 Type: ADM INOo Attending Dr: Emerald Martinez DO Copies to: Page Magaña Jr, MD Emerald Kwok DO~ History of Present Illness Consult Details Consult Date: 06/27/2023 Requesting Provider: Emerald Martinez DO HPI: Is for consultation on this 33-year-old 3 para 2 female at 26 and 2 daysgestation who presents with the acute onset and severity of right-sided flank pain. Ultrasound was obtained demonstrating poor ureteral jet from the right side and normal from the left. She has a positive history of kidney stones. Noobvious calculus seen on this ultrasound. Urologic consultation is obtained secondary to the possibility of renal colic. She has had no fever or chills. I have placed her on the surgical schedule in preparation for possible intervention this afternoon. Her pain has actually improved a bit and her urinary pattern has changed since the original consultation. The entire PMH,PSH,ROS, family and social history, medications, and allergies are reviewed and unchanged from the admission H and P documented by Dr. Martinez earlier today [facility] Medical History (Updated 06/27/23 @ 07:15 by Emerald Martinez DO) Anxiety Asthma History of gluten sensitivity Kidney stone AT AGE 11 Surgical History Hx of section Family History Father Diabetes Social History Smoking Status: Never smoker Substance Use Type: None Meds Medications and Allergies Allergies dicyclomine [From Bentyl] Allergy (Verified 01/24/23 10:14) Migraine fish oil Allergy (Verified 01/24/23 10:14) Hives gluten Adverse Reaction (Verified 01/24/23 10:14) Nausea Home Medications albuterol sulfate 90 mcg/actuation aerosol inhaler 2 inh inhalation Q4-6H PRN shortness of breath or wheezing #18 grams 09/21/18 [Rx Confirmed 01/24/23] ibuprofen 800 mg tablet 400 mg PO TID PRN fever or pain 05/05/19 [Rx Confirmed 01/24/23] cholecalciferol (vitamin D3) 25 mcg (1,000 unit) capsule (Vitamin D3) 25 mcg PO DAILY 01/24/23 [History Confirmed 01/24/23] semaglutide 1 mg/dose (4 mg/3 mL) subcutaneous pen injector (Ozempic) 1 mg subcut QWEEK 01/24/23 [History Confirmed 01/24/23] Exam Physical Exam Vital Signs: Temp Pulse Resp BP Pulse Ox O2 Del Method 98.9 F 104 H 18 123/78 98 Room Air 06/27/23 12:20 06/27/23 12:20 06/27/23 12:20 06/27/23 12:20 06/27/23 12:20 06/27/23 12:20 Narrative: General: The patient appears nontoxic. Does not appear ill. Skin: Warm, dry. No gross lesions are identified. HEENT: Normocephalic, atraumatic. Pupils equal, round, and reactive to light and accommodation. Oral mucosa moist. Respiratory: No increased respiratory effort. Cardiac: Regular rate and rhythm GI: Abdomen is soft, nontender, negative peritoneal signs, no obvious hepatosplenomegaly : The bladder is nonpalpable. There is no CVA tenderness bilaterally. Musculoskeletal: Moves all extremities, normal strength Neurologic: Awake, alert, oriented Psychiatric: Affect normal to clinical condition Results Labs 06/26/23 22:52 06/26/23 22:52 Labs: Laboratory Results - Last 48 hrs. 06/26/23 22:52: PHA Creatinine Clear 138.60, Sodium 138, Potassium 3.3 L, Chloride 105, Carbon Dioxide 23.8, Anion Gap 12.5, BUN 6 L, Creatinine 0.52 L, Est GFR (CKD-EPI) > 60.0, Glucose 124 H, Calcium 8.2 L, Total Bilirubin 0.3, AST14, ALT 17, Alkaline Phosphatase 88, Total Protein 5.5 L, Albumin 3.4 L, Globulin 2.1, Albumin/Globulin Ratio 1.6 06/26/23 22:52: Corrected WBC 13.6 H, Uncorrected WBC Count 13.6 H, RBC 3.89, Hgb 11.3 L, Hct 33.5 L, MCV 86.2, MCH 29.0, MCHC 33.7, RDW 13.4, Plt Count 174, MPV 9.8, Neut % (Auto) 87.1, Lymph % (Auto) 8.3, [place] % (Auto) 4.2, Eos % (Auto)0.2, Baso % (Auto) 0.2, Nucleat RBC Rel Count 0.1, Neut # (Auto) 11.9 H, Lymph #(Auto) 1.1, [place] # (Auto) 0.6, Eos # (Auto) 0.0, Baso # (Auto) 0.0 06/26/23 20:07: Fibronectin Negative 06/26/23 19:20: Urine Opiates Screen Negative, Ur Barbiturates Screen Negative, Ur Phencyclidine Scrn Negative, Ur Amphetamines Screen Negative, U Benzodiazepines Scrn Negative, Urine Cocaine Screen Negative 06/26/23 19:20: Urine Color Yellow, Urine Appearance Clear, Urine pH 6.5, Ur Specific Gilbert 1.009, Urine Protein Trace H, Urine Glucose (UA) Normal, Urine Ketones Negative, Urine Occult Blood 3+ H, Urine Nitrite Negative, Urine Bilirubin Negative, Urine Urobilinogen Normal, Ur Leukocyte Esterase Negative, Urine RBC 10-19 H, Urine WBC 0-1, Ur Squamous Epith Cells 10-19 H, Urine Bacteria Rare H, Hyaline Casts None seen, Urine Yeast Rare A Imaging US - abdomen: report reviewed and image reviewed US - pelvic: report reviewed and image reviewed Assessment/Plan (1) 26 weeks gestation of : Code(s): Z3A.26 - 26 weeks gestation of (2) Hydronephrosis, right: Code(s): N13.30 - Unspecified hydronephrosis Plan Discussed with the patient and her . Reviewed labs, reviewed ultrasound and report. The patient was admitted by Dr. Martinez but usually follows with . We discussed the options. She certainly has had kidney stones in the past and suspicion is high that she may be passing another. She may also be having flank pain driven by the weight and size of the fetus. She is certainly aware of round ligament pain. Have given her the option of surgical intervention versus a conservative approach and she prefers the latter at this point. We can monitor her throughout the rest of the day and perhaps repeat a renal ultrasound at some point. I would not do this today. Her best option, if the stone is present is to pass this on her own and she is certainly is aware that. She and her are concerned about the possibility of premature labor initiated by anesthesia but I did let them know that flank pain can certainly do this as well. Will allow her to eat. Thanks for consultation and I will be available on a as needed basis. 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 Patient does have history of kidney stones and did have one in January of this year that she passed on her own. Currently, patient's pain is controlledwith IV pain meds. OB [facility] Medical History (Updated 06/27/23 @ 07:15 by Emerald Rinkes, DO) Anxiety Asthma History of gluten sensitivity Kidney stone AT AGE 11 Surgical History Hx of section Family History Father Diabetes Allergies & Medications Medications and Allergies Allergies dicyclomine [From Bentyl] Allergy (Verified 01/24/23 10:14) Migraine fish oil Allergy (Verified 01/24/23 10:14) Hives gluten Adverse Reaction (Verified 01/24/23 10:14) Nausea Home Medications albuterol sulfate 90 mcg/actuation aerosol inhaler 2 inh inhalation Q4-6H PRN shortness of breath or wheezing #18 grams 09/21/18 [Rx Confirmed 01/24/23] ibuprofen 800 mg tablet 400 mg PO TID PRN fever or pain 05/05/19 [Rx Confirmed 01/24/23] cholecalciferol (vitamin D3) 25 mcg (1,000 unit) capsule (Vitamin D3) 25 mcg PO DAILY 01/24/23 [History Confirmed 01/24/23] semaglutide 1 mg/dose (4 mg/3 mL) subcutaneous pen injector (Ozempic) 1 mg subcut QWEEK 01/24/23 [History Confirmed 01/24/23] Active Medications Acetaminophen (Acetaminophen 500 Mg Tablet) 1,000 mg PO Q6H PRN PRN Reason: Fever or Pain Stop: 06/25/24 22:21 Last Admin: 06/26/23 22:47 Dose: 1,000 mg Hydromorphone HCl (Hydromorphone 0.5 Mg/0.5 Ml Syringe) 0.5 mg IV-PUSH Q2H PRN PRN Reason: Pain Hydromorphone HCl (Hydromorphone 1 Mg/Ml Syringe) 1 mg IV-PUSH Q2H PRN PRN Reason: Pain Stop: 06/28/23 23:59 Last Admin: 06/27/23 04:28 Dose: 1 mg Cefazolin Sodium (Ancef) 1 gm in 50 mls @ 100 mls/hr IV Q8H NAY Last Admin: 06/27/23 05:16 Dose: 100 mls/hr Lactated Ringer's (Lactated Ringers) 1,000 mls @ 125 mls/hr IV .Q8H NAY Stop: 06/25/24 22:44 Last Admin: 06/27/23 05:21 Dose: 125 mls/hr Ondansetron HCl (Ondansetron 4 Mg/2 Ml Vial) 4 mg IV-PUSH Q6H PRN PRN Reason: Nausea And Vomiting Stop: 06/25/24 22:23 Last Admin: 06/27/23 04:28 Dose: 4 mg Promethazine HCl (Promethazine 12.5 Mg Tablet) 12.5 mg PO Q6H PRN PRN Reason: Nausea And Vomiting Stop: 06/25/24 22:23 Sodium Chloride (Sodium Chloride 0.9 % 10 Ml Syringe) 0 ml IV-PUSH PRN PRN PRN Reason: Flush Stop: 06/25/24 20:46 Last Admin: 06/27/23 04:29 Dose: 10 ml OB - Physical Exam Vital Signs Vital Signs: Temp 98.6 F 06/27/23 06:00 Pulse 102 H 06/27/23 06:00 Resp 20 06/27/23 06:00 BP 119/80 06/27/23 06:00 Pulse Ox 94 L 06/27/23 06:00 O2 Del Method Room Air 06/27/23 06:00 Constitutional Constitutional: no acute distress HEENT Exam Head: Present normocephalic and atraumatic Eye: Present EOMI and PERRL ENT: Present mucous membranes moist Respiratory Exam Respiratory: Absent accessory muscle use Cardiovascular Exam Cardiovascular: Present RRR Abdominal Exam Abdominal: Present soft Comments: gravid Detailed Labor and Delivery Exam Dilatation (cm): 0 cm Effacement (%): 0% Station: High Membrane Status: Intact Heart Rate Baseline (Fetus A): 135 Contraction Pattern: Absent Extremities Exam Extremities: Present full ROM; Absent cyanosis Skin Exam Skin: Present intact Neurological Exam Neurological: Present alert and oriented X3 OB Results Laboratory Results - Last 48 hrs. 06/26/23 22:52: PHA Creatinine Clear 138.60, Sodium 138, Potassium 3.3 L, Chloride 105, Carbon Dioxide 23.8, Anion Gap 12.5, BUN 6 L, Creatinine 0.52 L, Est GFR (CKD-EPI) > 60.0, Glucose 124 H, Calcium 8.2 L, Total Bilirubin 0.3, AST14, ALT 17, Alkaline Phosphatase 88, Total Protein 5.5 L, Albumin 3.4 L, Globulin 2.1, Albumin/Globulin Ratio 1.6 06/26/23 22:52: Corrected WBC 13.6 H, Uncorrected WBC Count 13.6 H, RBC 3.89, Hgb 11.3 L, Hct 33.5 L, MCV 86.2, MCH 29.0, MCHC 33.7, RDW 13.4, Plt Count 174, MPV 9.8, Neut % (Auto) 87.1, Lymph % (Auto) 8.3, [place] % (Auto) 4.2, Eos % (Auto)0.2, Baso % (Auto) 0.2, Nucleat RBC Rel Count 0.1, Neut # (Auto) 11.9 H, Lymph #(Auto) 1.1, [place] # (Auto) 0.6, Eos # (Auto) 0.0, Baso # (Auto) 0.0 06/26/23 20:07: Fibronectin Negative 06/26/23 19:20: Urine Opiates Screen Negative, Ur Barbiturates Screen Negative, Ur Phencyclidine Scrn Negative, Ur Amphetamines Screen Negative, U Benzodiazepines Scrn Negative, Urine Cocaine Screen Negative 06/26/23 19:20: Urine Color Yellow, Urine Appearance Clear, Urine pH 6.5, Ur Specific Gilbert 1.009, Urine Protein Trace H, Urine Glucose (UA) Normal, Urine Ketones Negative, Urine Occult Blood 3+ H, Urine Nitrite Negative, Urine Bilirubin Negative, Urine Urobilinogen Normal, Ur Leukocyte Esterase Negative, Urine RBC 10-19 H, Urine WBC 0-1, Ur Squamous Epith Cells 10-19 H, Urine Bacteria Rare H, Hyaline Casts None seen, Urine Yeast Rare A Assessment/Plan (1) 26 weeks gestation of : Plan: No complaints currently. She does see Dr. Erwin in [place] for her care (2) Right kidney stone: Plan: Urology has been consulted- awaiting recommendations (3) Hydronephrosis, right: Plan: Urology has been consulted-awaiting recommendations Documented By: Emerald Martinez DO 06/27/23 07 06 Signed By: <Electronically signed by Emerald Martinez DO> 06/27/23 1716 [facility] Work Phone: Evaluation note 11-08-2022 Note Date & Type Note Facility 05-02-2023 Evaluation note Encounter Date Diagnosis Assessment Notes November, Abnormal weight gain (ICD-10 - R63.5) November, Mixed hyperlipidemia (ICD-10 - E78.2) November, Anxiety (ICD-10 - F41.9) November, Asthma (ICD-10 - J45.909) November, Kidney stones (ICD-10 - N20.0) [employer] Other Evaluation note Note Date & Type Note Facility Evaluation note No assessment information availa ble [facility] Work Phone: Evaluation note Note Date & Type Note Facility Evaluation note Diagnosis Onset Date 26 weeks gestation of acute Hydronephrosis, right acute Right kidney stone acute [facility] Work Phone: History general Narrative - Reported Note Date & Type Note Facility History general Narrative - Reported Type Medical History asthma Surgical History C section x 2 Surgical History kidney stones Surgical History IUD removed Hospitalization History see surgical hx [employer] Other Hospital Discharge instructions Note Date & Type Note Facility Hospital Discharge instructions Additional Instructions Follow-up with your primary care doctor and 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 Pt has Hx of kidney stones beginning age 12. Receivesprenatal care from Dr. Erwin. This morning, she states pain is much improved and has reduced to about 10% of severity of pain at initial presentation. Tolerated well with Tylenol. Endorsingmild nausea but no vomiting. Tolerating small snacks yesterday and overnight. Urinating frequently and without difficulty. Baby is active. Physical Exam: GENERAL: No apparent distress, alert, oriented, appears stated age, comfortable HEENT: NC/AT, EOMI, PERRL, conjunctiva clear, no adenopathy CARDIOVASCULAR: Regular rate and regular rhythm, no murmurs, symmetric palpable radial pulses RESPIRATORY: nonlabored work of breathing on room air, clear to auscultation bilaterally, symmetric chest rise ABDOMEN: Gravid uterus, non-tender, normal bowel sounds BACK: No midline or paraspinal tenderness. No CVA tenderness. EXTREMITIES: moving all extremities well. SKIN: Intact, no rash, no trauma NEURO: Cranial nerves grossly intact, no focal neurologic signs PSYCHIATRIC: Good eye contact, appropriate mood and affect, cooperative Assessment and Plan -Pain resolving. Continue straining urine, encourage oral hydration -Urology on board. Shared decision making for conservative management -Can repeat renal ultrasound per urology recommendation -Anticipating discharge home today Documented By: Virgen Hughes MD, RES 06/28/23 0732 Signed By: <Electronically signed by RES Virgen Hughes> 06/28/23 0751 <Electronically signed by MD KIKI BEAL> 06/28/23 0804 [facility] Work Phone: Chief Complaint and Reason for Visit Chief Complaint Z00.00 R63.5 R70..0 E55.9 Chief Complaint Obesity rt side lower back/abd pain Chief Complaint Vitamin D Deficiency Chief Complaint Vitamin D Deficiency E55.9 Chief Complaint Vitamin D Deficiency E55.9 26wks iup, back/flank pain, lower abd pain Reason for Visit 26 weeks gestation o f Hydronephrosis, right Right kidney stone Advance Directives No Advanced Directives Records Found Advance Directive Response Recorded Date/ Time Advance Directives No September 21 9:37pm Advance Directive Response Recorded Date/ Time Advance Directives No March 15th, 2 019 8:37pm Summary Purpose Family History No Family History Records Found Additional Source Comments Care Teams (unrecognized sec tion and content) Team Status: Active Member Role Status Dates Sallie Magaña , DO Primary Care Provider Active Team Status: Inactive Member Role Status Dates Sallie Magaña , DO Primary Care Provider, Attending Provider Active Team Status: Active Member Role Status Dates Sallie Magaña , DO Primary Care Provider Active Hilario Reynolds MD Attending Provider Active Team Status: Inactive Member Role Status Dates Sallie Magaña , Primary Care Provider Active Sarmad Luque , DO Emergency Provider Active Donovan Brooks MD RES Active Team Status: Inactive Member Role Status Dates Sallie Magaña , Primary Care Provider Active Latrice Sepulveda MD Attending Provider Active Team Status: Inactive Member Role Status Dates Sallie Magaña , Primary Care Provider Active Emerald Martinez , DO Admit Provider, Attending Provide r Active Goals (unrecognized section and content) Goals may be documented in a n alternate sectionNo InformationGoals may be documented in an alternate sectionGoals may be documented in an alternate sectionGoals may be documented in an alternate section REASON FOR VISIT (unrecogniz ed section and content) Initial [facility] INFORMATION SOURCE (unrecogn ized section and content) DATE CREATED AUTHOR 06/20/2023 [facility] DATE CREATED AUTHOR AUTHOR'S ORGANIZ ATION 06/28/2023 [facility] DATE CREATED AUTHOR AUTHOR'S ORGANIZ ATION 06/29/[address] [facility] FOR RECORDS PERTAINING TO PATIENTS WHO ARE OR HAVE BEEN ENROLLED IN A CHEMICAL DEPENDENCY/SUBSTANCEABUSE PROGRAM, SOME INFORMATION MAY BE OMITTED. This clinical summary was aggregated from multiple sources. Caution should be exercised in using it in the provision of clinical care. This summary normalizes information from multiple sources, and as a consequence, information in this document may materially change the coding, format and clinical context of patient data. In addition, data may be omitted in some cases. CLINICAL DECISIONS SHOULD BE BASED ON THE PRIMARY CLINICAL RECORDS. [employer] provides no warranty or guarantee of the accuracy or completeness of information in this document.
[2023-06-29 10:24] LABS: Basophils Percent Auto 0.3 % (0.2-2.0); Eosinophils Absolute Auto 0.3 10^3/uL (0.0-0.7); Eosinophils Percent Auto 2.4 % (0.9-7.0); Hematocrit 31.4 % (36.0-48.0); Immature Granulocytes Abs Auto 0.04 10^3/uL (0.00-0.03); Immature Granulocytes Pct Auto 0.4 % (0.0-0.5); Lymphocytes Absolute Auto 1.2 10^3/uL (1.2-3.8); Lymphocytes Percent Auto 10.8 % (20.5-60.0); Mean Corpuscular HGB Conc 31.8 g/dL (29.9-35.2); Mean Corpuscular Hemoglobin 29.4 pg (26.7-34.0); Mean Corpuscular Volume 92.4 fL (81.0-99.0); Monocytes Absolute Auto 0.7 10^3/uL (0.3-0.8); Monocytes Percent Auto 6.3 % (1.7-12.0); Neutrophils Absolute Auto 8.5 10^3/uL (1.4-6.5); Neutrophils Percent Auto 79.8 % (43.0-75.0); Platelet Count 160 10^3/uL (150-450); Red Cell Distribution Width 13.2 % (11.0-15.0); White Blood Count 10.6 10^3/uL (4.0-11.0)
[2023-06-29 10:44] LABS: Alanine Aminotransferase 16 U/L (14-59); Albumin Globulin Ratio 0.6; Albumin Level 2.2 g/dL (3.4-5.0); Alkaline Phosphatase 96 U/L (46-116); Anion Gap 12.7; Aspartate Amino Transferase 15 U/L (15-37); BUN Creatinine Ratio 7.4; Bilirubin Total 0.7 mg/dL (0.2-1.0); Calcium 8.3 mg/dL (8.5-10.1); Carbon Dioxide 20.8 mmol/L (21.0-32.0); Chloride 106 mmol/L (98-107); Estimated GFR (African America >60 (>=60); Estimated GFR (Non-African Ame >60 (>=60); Globulin 3.6 g/dL; Glucose 82 mg/dL (74-106); Potassium 3.5 mmol/L (3.5-5.1); Sodium 136 mmol/L (136-145); Total Protein 5.8 g/dL (6.4-8.2)
--- NOTE | 2023-06-29 16:36 | OP_ITS ---
OP Note ? OPERATION DATE: ??06/29/2023 ? PREOPERATIVE DIAGNOSIS:? 1.? Right sided hydronephrosis. 2.? 26 weeks gestation. ? POSTOPERATIVE DIAGNOSIS:? 1.? Right sided hydronephrosis with right distal ureteral calculus. 2.? 26 weeks gestation. ? PROCEDURE: 1.? Cystoscopy. 2.? Right retrograde pyelogram under minimal fluoroscopy. 3.? Right ureteroscopy with holmium laser ablation and basket extraction right distal ureteral calculus. 4.? Right double J ureteral string stent placement under fluoroscopic guidance. ? SURGEON:? Michael Willett M.D. ? COMPLICATIONS:? None. ? ANESTHESIA:? General, Dr. Nolen, LMA. ? INDICATIONS:? Ms. Smith is a 33-year-old female at 26 weeks and 4 days gestation, who was previously admitted at [facility] and was subsequently discharged home.? She had chosen not to proceed with any operation intervention for her right flank pain, even though the suspicion was high for a ureteral stone.? She now presents to the [facility] and is subsequently admitted her, 2-3 days later, with similar issues with flank pain, and a repeat ultrasound demonstrates no ureteral jet on the right and continued hydronephrosis.? She wished to undergo surgical intervention with the inherent risk of bleeding, infection, need for additional procedural intervention, heart and lung problems under anesthesia, the very small risk of fluoroscopy to the fetus, but she is in her second trimester, as well as the small risk of premature labor.? Despite these risks, among others, she wants to proceed.? She did receive preoperative antibiotics, and she does have sequential compression devices in place and functional on the bilateral lower extremities throughout the case. ? PROCEDURE:? She was then brought back to the operating room and a time out was performed.? All were in agreement with the operative plan.? After the successful induction of general anesthesia by Dr. Nolen, she was placed in the modified dorsolithotomy position and prepped in the usual fashion with Betadine solution.? She was draped appropriately.? 2% Xylocaine jelly placed per urethra and a well lubricated 22-Argentine cystourethroscope was passed into the bladder without difficulty.? Tamayo endoscopy reveals no tumors, no stones, no diverticula.? Bilateral ureteral orifices are normal.? I turned my attention towards the right side.? Under one fluoroscopic image, I felt that a stone was located distally.? This was confirmed with a light retrograde pyelogram.? I decided to proceed with ureteroscopy.? The semi-rigid ureteroscope was then passed up the right ureter, after a 0.035 Guidewire had been placed.? The stone was encountered and, utilizing the holmium laser at about 10 vivas of power, the stone was ablated in several pieces, each of which was basketed free and sent to Pathology for evaluation.? Ureteroscopy was carried up to the mid ureter.? No other stones were identified.? Due to the amount of impaction of the stone initially, I felt that a stent was indicated for a short time; therefore, the safety wire was left in place. Cystoscope was backloaded over the wire, and a 4.9-Argentine Dornier double J stent was passed into the right kidney.? Wire removed and there was good curl within the kidney and the urinary bladder.? Bladder emptied, scope removed and our procedure was terminated.? She tolerates it well.? She will be transferred back to OB and hopefully home within the next 12-24 hour. ? The ureteral string stent had been taped to the patient?s right thigh, so this can simply be removed within the next three days or so.? Discussed all this with her post-op, and he is in agreement with the plan. SOL
[2023-06-29] MEDS: IOHEXOL 240 MG/ML - 10 ML VIAL INJ (16:38)
--- NOTE | 2023-06-29 17:12 | P.URCN_ITS ---
Urology - CN: HPI Date of Consult Consult date: 06/29/23 Requesting Physician: Herson Erwin DO Primary Care Provider: Non-Staff Physician, MD Consult Narrative Reason for consult IM: Urology consult for right flank pain, known hydronephrosis Narrative: Admitted here at [facility] for right hydronephrosis, confirmed again on renal ultrasound her without any ureteral jet on the right . No fever, no chills. Moderate constant discomfort in the right flank currently. She is 26 weeks, 4 days . Now wants operative intervention. The entire PMH, PSH, ROS, family and social history , meds, allergies are as noted in Dr. Erwin's H and P and is unchanged. cc:: CC: Herson Erwin DO Meds Home Medications and Allergies Home Medications Medication Instructions Recorded Confirmed Type cholecalciferol (vitamin D3) 50 2,000 unit PO DAILY 06/29/23 06/29/23 History mcg (2,000 unit) tablet vits,calcium 21-iron fum tab PO 06/29/23 History 14 mg iron-folic acid 400 mcg tablet ( Complete) Allergies Allergy/AdvReac Type Severity Reaction Status Date / Time dicyclomine [From Bentyl] Allergy Intermediate cant see Verified 06/28/23 17:36 fish oil Allergy Intermediate Hives Verified 06/28/23 17:36 Exam Narrative Exam Narrative: Heent: WNL Ht: RRR Lungs clear Abd: soft, NT Moderate right flank tenderness. LE: normal Neuro: WNL Constitutional Vital Signs, click to edit/add: Last Vital Signs Temp 98.1 F 06/29/23 08:46 Pulse 113 H 06/29/23 13:37 Resp 18 06/29/23 08:46 BP 123/82 06/29/23 13:37 O2 Del Method Room Air 06/29/23 08:46 Results Labs Labs: Short CBC 06/28/23 06/29/23 Range/Units 18:24 10:13 WBC 13.9 H 10.6 (4.0-11.0) 10^3/uL Hgb 11.1 L 10.0 L (12.0-16.0) g/dL Hct 33.9 L 31.4 L (36.0-48.0) % Plt Count 184 160 (150-450) 10^3/uL BMP 06/28/23 06/29/23 18:24 10:13 Sodium 139 136 Potassium 3.0 L 3.5 Chloride 105 106 Carbon Dioxide 23.4 20.8 L BUN 5.0 L 5.0 L Creatinine 0.71 0.68 Glucose 84 82 Calcium 8.9 8.3 L Liver Function 06/28/23 06/29/23 Range/Units 18:24 10:13 Total Bilirubin 0.6 0.7 (0.2-1.0) mg/dL AST 17 15 (15-37) U/L ALT 20 16 (14-59) U/L Alkaline Phosphatase 104 96 (46-116) U/L Albumin 2.5 L 2.2 L (3.4-5.0) g/dL Urine 06/28/23 Range/Units 17:05 Urine Color Lt. yellow (YELLOW) Urine Clarity Clear (CLEAR) Urine pH 7.0 (5.0-9.0) Ur Specific [place] 1.010 (1.005-1.025) Urine Protein Negative (NEG/TRACE) mg/dL Urine Glucose (UA) Negative (NEGATIVE) mg/dL Urology Assessment and Plan Assessment and Plan (1) Hydronephrosis: (2) 26 weeks gestation of : Plan Options discussed, including continued conservative mgmt versus operative intervention. She wishes the operative approach, with cysto, right RGP, possible stent, possible ureteroscopy. She is aware of the risk of bleeding ,infection, stent pain, more operative procedures, and anesthesia risks, including the small risk to the fetus. She knows I will use minimal fluoroscopy, with also small risk to the fetus, but less so since she is in the second trimester. She wishes me to proceed. Thanks for consultation.
[2023-06-29] MEDS: DOCUSATE SODIUM 100 MG CAPSULE PO (21:46)
[2023-06-30 07:57] VITALS: BP 103/69; PULSE 83; RESP 18
[2023-06-30 07:58] VITALS: TEMP 36.1
--- NOTE | 2023-06-30 07:58 | PM.OBPN ---
OB - PN: Subj Subjective Interval history: rt kidney stone with ureteral obstruction, iup at 26 5/7wks, flank pain, c/s times 2 Patient comments: pain well controlled Exam Constitutional Vital Signs, click to edit/add: Last Vital Signs Temp 96.6 F L 06/29/23 23:45 Pulse 83 06/30/23 07:57 Resp 22 06/29/23 17:40 BP 103/69 06/30/23 07:57 Pulse Ox 96 06/29/23 17:40 O2 Del Method Room Air 06/29/23 17:40 Documenting provider has reviewed patient's vital signs: yes Common normals: no apparent distress Respiratory Common normals: normal respiratory effort and clear to auscultation bilaterally Cardio Common normals: regular rate and regular rhythm GI Common normals: Normal to inspection, nondistended, normoactive bowel sounds present Extremity Common normals: no calf tenderness Results Labs Labs: Short CBC 06/29/23 Range/Units 10:13 WBC 10.6 (4.0-11.0) 10^3/uL Hgb 10.0 L (12.0-16.0) g/dL Hct 31.4 L (36.0-48.0) % Plt Count 160 (150-450) 10^3/uL BMP 06/29/23 10:13 Sodium 136 Potassium 3.5 Chloride 106 Carbon Dioxide 20.8 L BUN 5.0 L Creatinine 0.68 Glucose 82 Calcium 8.3 L Liver Function 06/29/23 Range/Units 10:13 Total Bilirubin 0.7 (0.2-1.0) mg/dL AST 15 (15-37) U/L ALT 16 (14-59) U/L Alkaline Phosphatase 96 (46-116) U/L Albumin 2.2 L (3.4-5.0) g/dL OB - PN: A/P Assessment and Plan (1) Hydronephrosis: (2) 26 weeks gestation of : Plan iup at 26 6/7wks, rt hydronephrosis, rt kidney stone, flank pain-pain has greatly improved, rx for vicodin given, will dc home, fu 1-2wks, appreciate urology consult, rt ureteroscopy peroformed Time Spent with Patient Time: Total time spent is greater than 50% in coordination of care (as documented) at patient's floor/unit and/or counseling patient: Total time spent with greater than 50% in coordination of care (as documented) at patient's floor/unit and/or counseling patient: less than 15 minutes
[2023-07-07 16:08] LABS: Calcium Oxalate Dihydrate 70 % (.); Calcium phosphate (hydroxyl) 30 % (.); Size 4x4 mm (.)
== END 2023-06-30 09:10 | disposition home or self-care (01) ==
LOC: FBCO 06-29 08:43 → FBC 06-29 08:43
PROVIDERS: Urology; Admitting Provider Obstetrics & Gynecology; Visit Provider Obstetrics & Gynecology
PROC: (CPT 918; principal; 2023-06-29 16:30)
DX: O99.891 Other specified diseases and conditions complicating pregnancy (principal); N13.2 Hydronephrosis with renal and ureteral calculous obstruction; Z3A.26 26 weeks gestation of pregnancy; O34.219 Maternal care for unspecified type scar from previous cesarean delivery
CPT/HCPCS: 52356; 36415; 59025; 76000; 76775; 80053; 81003; 82365; 85025; 96365; 96366; 96375; 96376; 99999; G0378; G0379; J1170; J2704; Q9966

== ENCOUNTER 2023-07-12 08:53 | Outpatient (OUT) | payer OTHER, SELFPAY ==
--- OUTSIDE RECORDS SUMMARY | 2023-07-12 09:11 | XMS_ITS | CCD ---
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 Name Role Phone DO Sallie Magaña Primary Care Provider DO Sallei Magaña Attending Provider Hialrio Reynolds Unavailable DO Sallie Magaña Primary Care Provider MD Hilario Reynolds Attending Provider DO Sarmad Luque Emergency Provider DO Sallie Magaña Primary Care Provider DO Sallie Magaña Attending Provider DO Sallie Magaña Primary Care Provider DO Sallie Magaña Attending Provider MD Latrice Sepulveda Attending Provider [phone] DO Emerald Martinez Admit Provider DO Emerald Martinez Attending Provider Alfredo LANDIN Attending Unavailable BRANDON CAMARGO Attending Unavailable EDGAR ERWIN Attending Unavailable Sallie Magaña Primary Care Unavailable Latrice Sepulveda [...] Translations: [dicyclomine] Drug Allergy 0 Migraine, Unknown [facility] (6 sources) Fish Oils; Translations: [fish oil] Drug Allergy 0 Hives [facility] (6 sources) Gluten; Translations: [gluten] Propensity to adverse reactions 0 Nausea [facility] (1 source) DHA Propensity to adverse reactions Unknown [email or web address] Other Medications Current Medications Medication Drug Class(es) [...] Test Name Value Interpretation Reference Range Facility Insurance Correspondence Off iceon 06-30-2023 Insurance Correspondence Office [id number]# 1.00TIFF Normal [facility] Lab Reportson 06-30-2023 Lab Reports [id number]# 1.00TIFF Normal [facility] RAD - Ultrasound Reporton RAD - Ultrasound Report [id number]#1 .00TIFF Normal [facility] Lab Reportson 06-29-2023 Lab Reports [id number]#1 .00TIFF Normal [facility] Consultation Noteon 06-28-20 Consultation Note [id number]#1 .00TIFF Normal [facility] Complete Blood Count Auto Di ffon 06-27-2023 Basophils (Bld) [#/Vol] 0.0 10*3/uL Normal 0.0-0.2 [facility] Comment on above: Result Comment: PERF ORMED BY: [facility] [address] [place] [address] PATHOLOGIST DEPARTMENTAL BUYER JERRY CASTRO M.D. Performed By: #### C BC, CMP ####[place] [id number] Basophils/100 WBC (Bld) 0.2 % Normal . [facility] Comment on above: Performed By: #### C BC, CMP ####[facility] [address] [place] [id number] [place] Eosinophils (Bld) [#/Vol] 0.0 10*3/uL Normal 0.0-0.45 [facility] Comment on above: Performed By: #### C BC, CMP ####[facility] [place] [id number] [place] Eosinophils/100 WBC (Bld) 0.2 % Normal . [facility] Comment on above: Performed By: #### C BC, CMP ####[address] Erythrocyte distribution width (RBC) [Ratio] 13.4 % Normal 11.9-15.3 [facility] Comment on above: Performed By: #### C BC, CMP ####[address] Hematocrit (Bld) [Volume fraction] 33.5 % Low 34.0-46.4 [facility] Comment on above: Performed By: #### C SAPPHIRE, CMP ####[address] Hemoglobin (Bld) [Mass/Vol] 11.3 g/dL Low 11.8-15.4 [facility] Comment on above: Performed By: #### C SAPPHIRE, CMP ####[address] Lymphocytes (Bld) [#/Vol] 1.1 10*3/uL Normal 1.00-4.8 [facility] Comment on above: Performed By: #### C SAPPHIRE, CMP ####[address] Lymphocytes/100 WBC (Bld) 8.3 % Normal . [facility] Comment on above: Performed By: #### C BC, CMP ####[address] MCH (RBC) [Entitic mass] 29.0 pg Normal 24.7-34.3 [facility] Comment on above: Performed By: #### C BC, CMP ####[address] MCV (RBC) [Entitic vol] 86.2 fL Normal 80-100 F [facility] Comment on above: Performed By: #### C BC, CMP ####[address] Mean Corpuscular HGB Conc 33.7 g/dL Normal 32.0-35.0 [facility] Comment on above: Performed By: #### C BC, CMP ####[place] [id number] [facility] Monocytes (Bld) [#/Vol] 0.6 10*3/uL Normal 0.0-0.8 [facility] Comment on above: Performed By: #### C BC, CMP ####[place] [id number] [facility] Monocytes/100 WBC (Bld) 4.2 % Normal . [facility] Comment on above: Performed By: #### C SAPPHIRE, CMP ####[place] [id number] [facility] Neutrophils (Bld) [#/Vol] 11.9 10*3/uL High 1.8-7.7 [facility] Comment on above: Performed By: #### C SAPPHIRE, CMP ####[place] [id number] [facility] Neutrophils/100 WBC (Bld) 87.1 % Normal . [facility] Comment on above: Performed By: #### C SAPPHIRE, CMP ####[place] [id number] [facility] NRBC% 0.1 /100{WBC} Normal 0-0.5 [facility] Comment on above: Performed By: #### C SAPPHIRE, CMP ####[place] [id number] [facility] Platelet mean volume (Bld) [Entitic vol] 9.8 fL Normal 6.3-10.7 [facility] Comment on above: Performed By: #### C BC, CMP ####[place] [id number] [facility] Platelets (Bld) [#/Vol] 174 10*3/uL Normal 150-450 [facility] Comment on above: Performed By: #### C BC, CMP ####[place] [id number] [facility] RBC (Bld) [#/Vol] 3.89 10*6/uL Normal 3.60-5.00 [facility] Comment on above: Performed By: #### C BC, CMP ####[address] [address] [facility] WBC (Bld) [#/Vol] 13.6 10*3/uL High 3.8-11.6 [facility] Comment on above: Performed By: #### C BC, CMP ####[address] [address] [facility] Comprehensive Metabolic Pane mauricio 06-27-2023 Albumin [Mass/Vol] 3.4 g/dL Low 3.5-5.7 [facility] Comment on above: Performed By: #### C SAPPHIRE, CMP ####[address] [address] [facility] Albumin/Globulin [Mass ratio] 1.6 {ratio} Normal [facility] Comment on above: Performed By: #### C SAPPHIRE, CMP ####[address] [address] [facility] ALP [Catalytic activity/Vol] 88 U/L Normal 34-104 [facility] Comment on above: Performed By: #### C SAPPHIRE, CMP ####[address] [address] [facility] ALT [Catalytic activity/Vol] 17 U/L Normal 7-52 [facility] Comment on above: Performed By: #### C SAPPHIRE, CMP ####[address] [address] [facility] Anion gap [Moles/Vol] 12.5 mmol/L Normal 6.0-15.0 [facility] Comment on above: Performed By: #### C BC, CMP ####[address] [address] [facility] AST [Catalytic activity/Vol] 14 U/L Normal 13-39 [facility] Comment on above: Performed By: #### C BC, CMP ####[address] [address] [facility] Bilirubin [Mass/Vol] 0.3 mg/dL Normal 0.3-1.0 [facility] Comment on above: Performed By: #### C BC, CMP ####[place] [id number] [place] [id number] [facility] Calcium [Mass/Vol] 8.2 mg/dL Low 8.6-10.3 [facility] Comment on above: Performed By: #### C BC, CMP ####[place] [address] [place] [id number] [facility] Chloride [Moles/Vol] 105 mmol/L Normal 98-107 [facility] Comment on above: Performed By: #### C BC, CMP ####[place] [id number] CO2 [Moles/Vol] 23.8 mmol/L Normal 21.0-31.0 [facility] Comment on above: Performed By: #### C BC, CMP ####[place] [id number] [facility] Creatinine [Mass/Vol] 0.52 mg/dL Low 0.60-1.20 [facility] Comment on above: Performed By: #### C BC, CMP ####[place] [id number] Creatinine Clr Calc Pharmacy 138.60 [facility] Comment on above: Result Comment: PERF ORMED BY: [facility] [address] [place] [address] PATHOLOGIST DEPARTMENTAL BUYER JERRY CASTRO M.D. Performed By: #### C BC, CMP ####[place] [id number] [place] [id number] [facility] GFR/1.73 sq M.predicted MDRD (S/P/Bld) [Vol rate/Area] mL/min/{1.73_m2} [facility] Comment on above: Performed By: #### C BC, CMP ####[place] [id number] [facility] Globulin (S) [Mass/Vol] 2.1 g/dL Normal [facility] Comment on above: Performed By: #### C BC, CMP ####[place] [address] [place] [address] [facility] Glucose [Mass/Vol] 124 mg/dL High 70-100 [facility] Comment on above: Result Comment: [place] Glucose Reference Range is dependent on time and content of last meal. Glucose of more than 200 mg/dL in a nonstressed, ambulatory subject supports the diagnosis of Diabetes Mellitus. ADA recommended reference range Performed By: #### C BC, CMP ####[place] [id number] [place] [address] [facility] Potassium [Moles/Vol] 3.3 mmol/L Low 3.5-5.1 [facility] Comment on above: Performed By: #### C BC, CMP ####[address] [address] [facility] Protein [Mass/Vol] 5.5 g/dL Low 6.4-8.9 [facility] Comment on above: Performed By: #### C BC, CMP ####[address] [address] [facility] Sodium [Moles/Vol] 138 mmol/L Normal 136-145 [facility] Comment on above: Performed By: #### C BC, CMP ####[facility] [place] [address] [facility] Urea nitrogen [Mass/Vol] 6 mg/dL Low 7-25 [facility] Comment on above: Performed By: #### C BC, CMP ####[address] [address] [facility] US renal BIon 06-27-2023 US renal BI [facility] [address] [place] [address] Ultrasound Report Signed Patient: Elyssa Smith MR#: [id number] : 1990 Acct:[id number] Age/Sex: 33 / F ADM Date: 06/27/23 Loc: Room: [address] [place] [address] Type: ADM INOo Attending Dr: Emerald Martinez [...] Kathleen Vaca M.D.06/27/2023 7:44 AM Dictation Location: [place] [address] Tech: Eryn Welsh Transcribed By: SILVINA 06/27/23 0744 Dictated By: Kathleen Vaca MD 06/27/23 0742 Signed By: 06/27/23 0744 Normal [facility] Alanine aminotransferase [En zymatic activity/volume] in Serum or PlasmaOrdered By: Emerald Martinez on 06-26-2023 ALT [Catalytic activity/Vol] 17 U/L 7-52 [facility] Albumin [Mass/volume] in Ser um or Plasma by Bromocresol green (BCG) dye binding methoOrdered By: Emerald Martinez on 06-26-2023 Albumin BCG dye [Mass/Vol] 3.4 g/dL 3.5-5.7 [facility] Alkaline phosphatase [Enzyma tic activity/volume] in Serum or PlasmaOrdered By: Emerald Martinez on 06-26-2023 ALP [Catalytic activity/Vol] 88 U/L 34-104 [facility] Amphetamine Screen Ql (U)Ord ered By: Emerald Martinez on 06-26-2023 Amphetamines Ql (U) Negative Negative [facility] Aspartate aminotransferase [ Enzymatic activity/volume] in Serum or PlasmaOrdered By: Emerald Martinez on 06-26-2023 AST [Catalytic activity/Vol] 14 U/L 13-39 [facility] Automated epithelial cells c ount in urine sediment (number/area)Ordered By: Emerald Michelle on 06-26-2023 Epithelial cells Auto (Urine sed) [#/Area] 10-19 [HPF] 0-2 [facility] Automated erythrocytes count in urine sediment (number/area)Ordered By: Emeraldseven Martinez on 06-26-2023 RBC Auto (Urine sed) [#/Area] 10-19 [HPF] 0-4 [facility] Automated leukocytes count i n urine sediment (number/area)Ordered By: Emerald Michelle on 06-26-2023 WBC Auto (Urine sed) [#/Area] 0-1 [HPF] 0-4 [facility] Automated urine hyaline cast s count (number/volume)Ordered By: Emeraldseven Martinez on 06-26-2023 Hyaline casts Auto (U) [#/Vol] None seen [LPF] 0-1 [facility] Barbiturates [Presence] in U rine by Screen methodOrdered By: Emrealdseven Martinez on 06-26-2023 Barbiturates Screen Ql (U) Negative Negative [facility] Basophils Auto (Bld) [#/Vol] Ordered By: Emeraldseven Martinez on 06-26-2023 Basophils (Bld) [#/Vol] 0.0 10*3/uL 0.0-0.2 [facility] Basophils/100 WBC Auto (Bld) Ordered By: Emerald Martinez on 06-26-2023 Basophils/100 WBC (Bld) 0.2 % . F [facility] Benzodiazepines Screen Ql (U )Ordered By: Emerald Martinez on 06-26-2023 Benzodiazepines Ql (U) Negative Negative [facility] Benzoylecgonine [Presence] i n Urine by Screen methodOrdered By: Emeraldseven Martinez on 06-26-2023 Benzoylecgonine Screen Ql (U) Negative Negative [facility] Bilirubin Test strip Ql (U)O rdered By: Emerald Martinez on 06-26-2023 Bilirubin Ql (U) Negative Negative [facility] Bilirubin.total [Mass/volume ] in Serum or PlasmaOrdered By: Emerald Martinez on 06-26-2023 Bilirubin [Mass/Vol] 0.3 mg/dL 0.3-1.0 [facility] Calcium [Mass/volume] in Ser um or PlasmaOrdered By: Emerald Martinez on 06-26-2023 Calcium [Mass/Vol] 8.2 mg/dL 8.6-10.3 [facility] Carbon dioxide, total [Moles /volume] in Serum or PlasmaOrdered By: Emerald Martinez on 06-26-2023 CO2 [Moles/Vol] 23.8 mmol/L 21.0-31.0 [facility] Chloride [Moles/volume] in S gris or PlasmaOrdered By: Emerald Martinez on 06-26-2023 Chloride [Moles/Vol] 105 mmol/L 98-107 [facility] Color Auto (U)Ordered By: Graciela Martinez on 06-26-2023 Color (U) Yellow Yellow [facility] Creatinine [Mass/volume] in Serum or PlasmaOrdered By: Emerald Martinez on 06-26-2023 Creatinine [Mass/Vol] 0.52 mg/dL 0.60-1.20 [facility] Dipstick and Microscopicon 1 08-27-2022 Appearance (U) Clear Normal Clear [facility] Comment on above: Order Comment: Name Collection Type:: Voided Performed By: #### O BUDS, ADDONUAPLUS #### [facility] [address] [place] [address] [place] Bacteria,Urine Rare High None Seen [facility] Comment on above: Order Comment: Name Collection Type:: Voided Performed By: #### O BUDS, ADDONUAPLUS #### [facility] [address] [place] [id number] [place] Bilirubin,Urine Negative Normal Negative [facility] Comment on above: Order Comment: Name Collection Type:: Voided Performed By: #### O BUDS, ADDONUAPLUS #### [facility] [address] [place] [id number] [place] Color (U) Yellow Normal Yellow [facility] Comment on above: Order Comment: Name Collection Type:: Voided Performed By: #### O BUDS, ADDONUAPLUS #### [facility] [address] [place] [address] Glucose Ql (U) Normal Normal Normal [facility] Comment on above: Order Comment: Name Collection Type:: Voided Performed By: #### O BUDS, ADDONUAPLUS #### [place] [address] [place] Hyaline Casts,Urine None Seen Normal 0-1 [facility] Comment on above: Order Comment: Name Collection Type:: Voided Performed By: #### O BUDS, ADDONUAPLUS #### [address] Ketones Ql (U) Negative Normal Negative [facility] Comment on above: Order Comment: Name Collection Type:: Voided Performed By: #### O BUDS, ADDONUAPLUS #### [address] Leukocyte esterase Test strip Ql (U) Negative Normal Negative [facility] Comment on above: Order Comment: Name Collection Type:: Voided Performed By: #### O BUDS, ADDONUAPLUS #### [place] [address] [place] Nitrite,Urine Negative Normal Negative [facility] Comment on above: Order Comment: Name Collection Type:: Voided Performed By: #### O BUDS, ADDONUAPLUS #### [facility] [address] [place] [address] Occult Blood,Urine 3+ High Negative [facility] Comment on above: Order Comment: Name Collection Type:: Voided Result Comment: PERF ORMED BY: [place] [address] PATHOLOGIST DEPARTMENTAL BUYER JERRY CASTRO M.D. Performed By: #### O BUDS, ADDONUAPLUS #### [address] pH (U) 6.5 [pH] Normal 5.0-9.0 [facility] Comment on above: Order Comment: Name Collection Type:: Voided Performed By: #### O BUDS, ADDONUAPLUS #### [facility] [address] [place] [address] Protein,Urine Trace High Negative [facility] Comment on above: Order Comment: Name Collection Type:: Voided Performed By: #### O BUDS, ADDONUAPLUS #### [address] RBC,Urine 10-19 High 0-4 [facility] Comment on above: Order Comment: Name Collection Type:: Voided Performed By: #### O BUDS, ADDONUAPLUS #### [address] Specificy Sully,Urine 1.009 Normal 1.001-1.030 [facility] Comment on above: Order Comment: Name Collection Type:: Voided Performed By: #### O BUDS, ADDONUAPLUS #### [place] [address] [place] Squamous Epithelial Cell,Urine 10-19 High 0-2 [facility] Comment on above: Order Comment: Name Collection Type:: Voided Performed By: #### O BUDS, ADDONUAPLUS #### [address] Urobilinogen,Urine Normal Normal Normal [facility] Comment on above: Order Comment: Name Collection Type:: Voided Performed By: #### O BUDS, ADDONUAPLUS #### [facility] [address] [place] [address] WBC LM.HPF (Urine sed) [#/Area] 0 /[HPF] Normal 0-4 [facility] Comment on above: Order Comment: Name Collection Type:: Voided Performed By: #### O BUDS, ADDONUAPLUS #### [address] Yeast,Urine Rare Critically abnormal None Seen [facility] Comment on above: Order Comment: Name Collection Type:: Voided Result Comment: PERF ORMED BY: [place] [address] PATHOLOGIST DEPARTMENTAL BUYER JERRY CASTRO M.D. Performed By: #### O BUDS, ADDONUAPLUS #### [address] Eosinophils Auto (Bld) [#/Vo l]Ordered By: Emerald Martinez on 06-26-2023 Eosinophils (Bld) [#/Vol] 0.0 10*3/uL 0.0-0.45 [facility] Eosinophils/100 WBC Auto (Bl d)Ordered By: Emerald aMrtinez on 06-26-2023 Eosinophils/100 WBC (Bld) 0.2 % . [facility] Erythrocyte distribution wid th Auto (RBC) [Ratio]Ordered By: Emerald Martinez on 06-26-2023 Erythrocyte distribution width (RBC) [Ratio] 13.4 % 11.9-15.3 [facility] Fibronectinon 06-26-20 Fibronectin Negative Normal Negative [facility] Comment on above: Order Comment: Comme nt patients 22 - 34 6/7 weeks prior to vaginal exam Result Comment: PERF ORMED BY: [place] [address] PATHOLOGIST DEPARTMENTAL BUYER JERRY CASTRO M.D. Performed By: #### F FN #### [address] fibronectinOrdered By: Emerald Martinez on 06-26-2023 Fibronectin. (Vag fld) [Mass/Vol] Negative Negative [facility] Globulin Calc (S) [Mass/Vol] Ordered By: Emerald Martinez on 06-26-2023 Globulin (S) [Mass/Vol] 2.1 g/dL [facility] Glucose [Mass/volume] in Ser um or PlasmaOrdered By: Emerald Martinez on 06-26-2023 Glucose [Mass/Vol] 124 mg/dL 70-100 [facility] Comment on above: ADA recommended refe rence rangeRandom Glucose Reference Range is dependent on time and content of last meal. Glucose of more than 200 mg/dL in a nonstressed, ambulatory subject supports the diagnosis of Diabetes Mellitus. Hematocrit Auto (Bld) [Volum e fraction]Ordered By: Emerald Martinez on 06-26-2023 Hematocrit (Bld) [Volume fraction] 33.5 % 34.0-46.4 [facility] Hemoglobin [Mass/volume] in BloodOrdered By: Emerald Martinez on 06-26-2023 Hemoglobin (Bld) [Mass/Vol] 11.3 g/dL 11.8-15.4 [facility] Ketones Auto test strip (U) [Mass/Vol]Ordered By: Emerald Martinez on 06-26-2023 Ketones (U) [Mass/Vol] Negative Negative [facility] Leukocytes [#/volume] correc mague for nucleated erythrocytes in Blood by Automated counOrdered By: Emerald Martinez on 06-26-2023 WBC corrected for nucl RBC Auto (Bld) [#/Vol] 13.6 10*3/uL 3.8-11.6 [facility] Lymphocytes Auto (Bld) [#/Vo l]Ordered By: Emerald Martinez on 06-26-2023 Lymphocytes (Bld) [#/Vol] 1.1 10*3/uL 1.00-4.8 [facility] Lymphocytes/100 WBC Auto (Bl d)Ordered By: Emerald Martinez on 06-26-2023 Lymphocytes/100 WBC (Bld) 8.3 % . [facility] MCH Auto (RBC) [Entitic mass ]Ordered By: Emerald Martinez on 06-26-2023 MCH (RBC) [Entitic mass] 29.0 pg 24.7-34.3 [facility] MCHC Auto (RBC) [Mass/Vol]Or dered By: Emerald Martinez on 06-26-2023 MCHC (RBC) [Mass/Vol] 33.7 g/dL 32.0-35.0 [facility] MCV Auto (RBC) [Entitic vol] Ordered By: Emerald Martinez on 06-26-2023 MCV (RBC) [Entitic vol] 86.2 fL 80-100 F [facility] Monocytes Auto (Bld) [#/Vol] Ordered By: Emerald Martinez on 06-26-2023 Monocytes (Bld) [#/Vol] 0.6 10*3/uL 0.0-0.8 [facility] Monocytes/100 WBC Auto (Bld) Ordered By: Emerald Martinez on 06-26-2023 Monocytes/100 WBC (Bld) 4.2 % . F [facility] Neutrophils Auto (Bld) [#/Vo l]Ordered By: Emerald Martinez on 06-26-2023 Neutrophils (Bld) [#/Vol] 11.9 10*3/uL 1.8-7.7 [facility] Neutrophils/100 WBC Auto (Bl d)Ordered By: Emerald Martinez on 06-26-2023 Neutrophils/100 WBC (Bld) 87.1 % . [facility] Nitrite Test strip Ql (U)Ord ered By: Emerald Martinez on 06-26-2023 Nitrite Ql (U) Negative Negative [facility] No Panel InformationOrdered By: Emerald Martinez on 06-26-2023 Estimated GFR (CKD-EPI) > 60.0 mL/Min [facility] Creatinine Clearance (Chem 138.60 [facility] Nucleated erythrocytes [Pres ence] in Blood by Automated countOrdered By: Emerald Martinez on 06-26-2023 Nucleated RBC Auto Ql (Bld) 0.1 /100{WBC} 0-0.5 [facility] OB Urine Drug Screen (NO THC )on 06-26-2023 Amphetamine Screen,Urine Negative Normal Negative [facility] Comment on above: Performed By: #### O BUDS, ADDONUAPLUS #### [facility] [address] Barbiturate Screen,Urine Negative Normal Negative [facility] Comment on above: Performed By: #### O BUDS, ADDONUAPLUS #### [facility] [address] [place] [address] [place] Benzodiazepines Screen,Urine Negative Normal Negative [facility] Comment on above: Performed By: #### O BUDS, ADDONUAPLUS #### [facility] [address] [place] [address] [place] Cocaine Screen,Urine Negative Normal Negative [facility] Comment on above: Performed By: #### O BUDS, ADDONUAPLUS #### [facility] [address] Opiate Screen,Urine Negative Normal Negative [facility] Comment on above: Performed By: #### O BUDS, ADDONUAPLUS #### [facility] [address] Phencyclidine Screen, Urine Negative Normal Negative [facility] Comment on above: Result Comment: Thes e are unconfirmed results and should not be used for legal purposes. Drug Cut-Off Concentration: AMPH 1000 ng/mL DORIS 200 ng/mL LEANNE 200 ng/mL COCM 300 ng/mL OP 300 ng/mL PCP 25 ng/mL PERFORMED BY: [place] [address] PATHOLOGIST DEPARTMENTAL BUYER JERRY CASTRO M.D. Performed By: #### O BUDS, ADDONUAPLUS #### [address] Opiates [Presence] in Urine by Screen methodOrdered By: Emerald Martinez on 06-26-2023 Opiates Screen Ql (U) Negative Negative [facility] Phencyclidine Screen Ql (U)O rdered By: Eemrald Martinez on 06-26-2023 Phencyclidine Ql (U) Negative Negative [facility] Comment on above: These are unconfirme d results and should not be used for legal purposes. Drug Cut-Off Concentration: AMPH 1000 ng/mL DORIS 200 ng/mL LEANNE 200 ng/mL COCM 300 ng/mL OP 300 ng/mL PCP 25 ng/mL Platelet mean volume Auto (B ld) [Entitic vol]Ordered By: Emerald Martinez on 06-26-2023 Platelet mean volume (Bld) [Entitic vol] 9.8 fL 6.3-10.7 [facility] Platelets Auto (Bld) [#/Vol] Ordered By: Emerald Martinez on 06-26-2023 Platelets (Bld) [#/Vol] 174 10*3/uL 150-450 [facility] Potassium [Moles/volume] in Serum or PlasmaOrdered By: Emerald Martinez on 06-26-2023 Potassium [Moles/Vol] 3.3 mmol/L 3.5-5.1 [facility] Protein Auto test strip (U) [Mass/Vol]Ordered By: Emerald Martinez on 06-26-2023 Protein (U) [Mass/Vol] Trace mg/dL Negative F [facility] Protein [Mass/volume] in Ser um or PlasmaOrdered By: Emerald Martinez on 06-26-2023 Protein [Mass/Vol] 5.5 g/dL 6.4-8.9 [facility] RBC Auto (Bld) [#/Vol]Ordere d By: Emerald Martinez on 06-26-2023 RBC (Bld) [#/Vol] 3.89 10*6/uL 3.60-5.00 [facility] Serum or plasma albumin/glob ulin mass ratioOrdered By: Emerald Martinez on 06-26-2023 Albumin/Globulin [Mass ratio] 1.6 {ratio} [facility] Serum or plasma anion gap de terminationOrdered By: Emerald Martinez on 06-26-2023 Anion gap [Moles/Vol] 12.5 mmol/L 6.0-15.0 [facility] Sodium [Moles/volume] in Ser um or PlasmaOrdered By: Emerald Martinez on 06-26-2023 Sodium [Moles/Vol] 138 mmol/L 136-145 [facility] Specific gravity Auto test s trip (U) [Rel density]Ordered By: Emerald Martinez on 06-26-2023 Specific gravity (U) [Rel density] 1.009 1.001-1.030 [facility] Urea nitrogen [Mass/volume] in Serum or PlasmaOrdered By: Emerald Martinez 06-26-2023 Urea nitrogen [Mass/Vol] 6 mg/dL 7-25 [facility] Urine bacteria detection by automated methodOrdered By: Emerald Martinez on 06-26-2023 Bacteria Auto Ql (U) Rare None Seen [facility] Urine clarity by refractomet ry automatedOrdered By: Emerald Martinez on 06-26-2023 Clarity Refractometry automated (U) Clear Clear [facility] Urine glucose measurement by automated test strip (mass/volume)Ordered By: Emerald Martinez on 06-26-2023 Glucose Auto test strip (U) [Mass/Vol] Normal mg/dL Normal [facility] Urine hemoglobin detection b y automated test stripOrdered By: Emerald Martinez on 06-26-2023 Hemoglobin Auto test strip Ql (U) 3+ Negative [facility] Urine leukocyte esterase det ection by automated test stripOrdered By: Emerald Martinez on 06-26-2023 Leukocyte esterase Auto test strip Ql (U) Negative Negative [facility] Urobilinogen Auto test strip (U) [Mass/Vol]Ordered By: Emerald Martinez on 06-26-2023 Urobilinogen (U) [Mass/Vol] Normal mg/dL Normal [facility] WBC Auto (Bld) [#/Vol]Ordere d By: Emerald Martinez on 06-26-2023 WBC (Bld) [#/Vol] 13.6 10*3/uL 3.8-11.6 [facility] Yeast detection in urine sed iment by light microscopyOrdered By: Emerald Martinez on 06-26-2023 Yeast LM Ql (Urine sed) Rare [HPF] None Seen F [facility] pH Auto test strip (U)Ordere d By: Emerald Martinez on 06-26-2023 pH (U) 6.5 [pH] 5.0-9.0 [facility] 1,25 Dihydroxy Vit D Calcitr olon 06-06-2023 1,25 Dihydroxy Vit D Calcitrol 123.0 pg/mL High 24.8-81.5 [facility] Comment on above: Result Comment: Perf ormed at: BN - [facility] [address] [id number] Slabber: Dinora Alvarenga MD, Phone: [phone] PERFORMED BY: [place] [id number] PATHOLOGIST DEPARTMENTAL BUYER JERRY CASTRO M.D. Performed By: #### F FN #### [address] Alanine aminotransferase [En zymatic activity/volume] in Serum or PlasmaOrdered By: Latrice Sepulveda on 06-06-2023 ALT [Catalytic activity/Vol] 19 U/L 7-52 [facility] Albumin [Mass/volume] in Ser um or Plasma by Bromocresol green (BCG) dye binding methoOrdered By: Latrice Sepulveda on 06-06-2023 Albumin BCG dye [Mass/Vol] 3.5 g/dL 3.5-5.7 [facility] Alkaline phosphatase [Enzyma tic activity/volume] in Serum or PlasmaOrdered By: Latrice Sepulveda on 06-06-2023 ALP [Catalytic activity/Vol] 84 U/L 34-104 [facility] Aspartate aminotransferase [ Enzymatic activity/volume] in Serum or PlasmaOrdered By: Latrice Sepulveda on 06-06-2023 AST [Catalytic activity/Vol] 16 U/L 13-39 [facility] Bilirubin.total [Mass/volume ] in Serum or PlasmaOrdered By: Latrice Sepulveda on 06-06-2023 Bilirubin [Mass/Vol] 0.3 mg/dL 0.3-1.0 [facility] Calcium [Mass/volume] in Ser um or PlasmaOrdered By: Latrice Sepulveda on 06-06-2023 Calcium [Mass/Vol] 8.6 mg/dL 8.6-10.3 [facility] Carbon dioxide, total [Moles /volume] in Serum or PlasmaOrdered By: Latrice Sepulveda on 06-06-2023 CO2 [Moles/Vol] 24.8 mmol/L 21.0-31.0 [facility] Chloride [Moles/volume] in S gris or PlasmaOrdered By: Latrice Sepulveda on 06-06-2023 Chloride [Moles/Vol] 107 mmol/L 98-107 [facility] Comprehensive Metabolic Pane mauricio 06-06-2023 Albumin [Mass/Vol] 3.5 g/dL Normal 3.5-5.7 [facility] Comment on above: Performed By: #### F FN #### [facility] [address] [place] [id number] [facility] Albumin/Globulin [Mass ratio] 1.5 {ratio} Normal [facility] Comment on above: Performed By: #### F FN #### [facility] [address] ALP [Catalytic activity/Vol] 84 U/L Normal 34-104 [facility] Comment on above: Performed By: #### F FN #### [facility] [address] ALT [Catalytic activity/Vol] 19 U/L Normal 7-52 [facility] Comment on above: Performed By: #### F FN #### [facility] [address] Anion gap [Moles/Vol] 9.9 mmol/L Normal 6.0-15.0 [facility] Comment on above: Performed By: #### F FN #### [facility] [address] [place] [address] AST [Catalytic activity/Vol] 16 U/L Normal 13-39 [facility] Comment on above: Performed By: #### F FN #### [address] Bilirubin [Mass/Vol] 0.3 mg/dL Normal 0.3-1.0 [facility] Comment on above: Performed By: #### F FN #### [address] Calcium [Mass/Vol] 8.6 mg/dL Normal 8.6-10.3 [facility] Comment on above: Performed By: #### F FN #### [facility] [address] [place] [address] Chloride [Moles/Vol] 107 mmol/L Normal 98-107 [facility] Comment on above: Performed By: #### F FN #### [address] CO2 [Moles/Vol] 24.8 mmol/L Normal 21.0-31.0 [facility] Comment on above: Performed By: #### F FN #### [address] Creatinine [Mass/Vol] 0.45 mg/dL Low 0.60-1.20 [facility] Comment on above: Performed By: #### F FN #### [facility] [address] [place] [address] [place] GFR/1.73 sq M.predicted MDRD (S/P/Bld) [Vol rate/Area] mL/min/{1.73_m2} Normal [facility] Comment on above: Performed By: #### F FN #### [facility] [address] Globulin (S) [Mass/Vol] 2.4 g/dL Normal F [facility] Comment on above: Performed By: #### F FN #### [address] Glucose [Mass/Vol] 89 mg/dL Normal 70-100 [facility] Comment on above: Result Comment: [facility] Glucose Reference Range is dependent on time and content of last meal. Glucose of more than 200 mg/dL in a nonstressed, ambulatory subject supports the diagnosis of Diabetes Mellitus. ADA recommended reference range Performed By: #### F FN #### [address] Potassium [Moles/Vol] 3.7 mmol/L Normal 3.5-5.1 [facility] Comment on above: Performed By: #### F FN #### [address] Protein [Mass/Vol] 5.9 g/dL Low 6.4-8.9 [facility] Comment on above: Performed By: #### F FN #### [place] [address] [place] Sodium [Moles/Vol] 138 mmol/L Normal 136-145 [facility] Comment on above: Performed By: #### F FN #### [address] Urea nitrogen [Mass/Vol] 5 mg/dL Low 7-25 [facility] Comment on above: Performed By: #### F FN #### [facility] [address] Creatinine [Mass/volume] in Serum or PlasmaOrdered By: Latrice Sepulveda on 06-06-2023 Creatinine [Mass/Vol] 0.45 mg/dL 0.60-1.20 [facility] Globulin Calc (S) [Mass/Vol] Ordered By: Latrice Sepulveda on 06-06-2023 Globulin (S) [Mass/Vol] 2.4 g/dL [facility] Glucose [Mass/volume] in Ser um or PlasmaOrdered By: Latrice Sepulveda on 06-06-2023 Glucose [Mass/Vol] 89 mg/dL 70-100 [facility] Comment on above: ADA recommended refe rence rangeRandom Glucose Reference Range is dependent on time and content of last meal. Glucose of more than 200 mg/dL in a nonstressed, ambulatory subject supports the diagnosis of Diabetes Mellitus. No Panel InformationOrdered By: Latrice Sepulveda on 06-06-2023 Estimated GFR (CKD-EPI) > 60.0 mL/Min [facility] Creatinine Clearance (Chem N/A [facility] Parathyrin.intact [Mass/volu me] in Serum or PlasmaOrdered By: Latrice Sepulveda on 06-06-2023 Parathyrin.intact [Mass/Vol] 45.8 pg/mL [facility] Parathyroid Hormone Intacton 06-06-2023 Parathyroid Hormone Intact 45.8 pg/mL Normal [facility] Comment on above: Result Comment: PERF ORMED BY: [facility] [address] [place] [address] PATHOLOGIST DEPARTMENTAL BUYER JERRY CASTRO M.D. Performed By: #### F FN #### [facility] [address] Potassium [Moles/volume] in Serum or PlasmaOrdered By: Latrice Sepulveda on 06-06-2023 Potassium [Moles/Vol] 3.7 mmol/L 3.5-5.1 [facility] Protein [Mass/volume] in Ser um or PlasmaOrdered By: Latrice Sepulveda on 06-06-2023 Protein [Mass/Vol] 5.9 g/dL 6.4-8.9 [facility] Serum or plasma albumin/glob ulin mass ratioOrdered By: Latrice Sepulveda on 06-06-2023 Albumin/Globulin [Mass ratio] 1.5 {ratio} [facility] Serum or plasma anion gap de terminationOrdered By: Latrice Sepulveda on 06-06-2023 Anion gap [Moles/Vol] 9.9 mmol/L 6.0-15.0 [facility] Serum or plasma calcitriol m easurement (mass/volume)Ordered By: Latrice Sepulveda on 06-06-2023 1,25-dihydroxyvitamin D3 [Mass/Vol] 123.0 pg/mL 24.8-81.5 [facility] Comment on above: Performed at: [address] [id number] Director: Dinora Alvarenga MD, Phone: [phone] Sodium [Moles/volume] in Ser um or PlasmaOrdered By: Latrice Sepulveda on 06-06-2023 Sodium [Moles/Vol] 138 mmol/L 136-145 [facility] Urea nitrogen [Mass/volume] in Serum or PlasmaOrdered By: Latrice Sepulveda on 06-06-2023 Urea nitrogen [Mass/Vol] 5 mg/dL 7-25 [facility] Vitamin D 25 Hydroxy Totalon 06-06-2023 Vitamin D 25 Hydroxy Total 22.4 ng/mL Low 30-100 [facility] Comment on above: Result Comment: HARVINDER MIN D STATUS 25([place])VITAMIN D RANGE (ng/mL) Deficient <20 Insufficient 20 to <30 Sufficient 30 to 100 Reference: Helen MF,Lino NC, Shar-Mando MARTELL, et al. Evaluation,treatment, and prevention of vitamin D deficiency; an Endocrine Society clinical practice guideline. JCEM. 2010; 96(7):1911-30. PERFORMED BY: [address] [place] [address] PATHOLOGIST DEPARTMENTAL BUYER JERRY CASTRO M.D. Performed By: #### F FN #### [facility] [address] [place] [id number] [facility] Vitamin D+Metabolites [Mass/ volume] in Serum or PlasmaOrdered By: Latrice Sepulveda on 06-06-2023 Vitamin D+Metabolites [Mass/Vol] 22.4 ng/mL 30-100 [facility] Comment on above: VITAMIN D STATUS 25( [place])VITAMIN D RANGE (ng/mL) Deficient <20 Insufficient 20 to <30Sufficient 30 to 100Reference: Lino Pena, Gildardo MARTELL, et al. Evaluation,treatment, and prevention of vitamin D deficiency; an Endocrine Society clinical practice guideline. JCEM. 2010; 96(7):1911-30. Vitamin D 25 Hydroxy Totalon 05-06-2023 Vitamin D 25 Hydroxy Total 21.0 ng/mL Low 30-100 [facility] Comment on above: Order Comment: [...] practice guideline. JCEM. 2010; 96(7):1911-30. PERFORMED BY: [place] [address] PATHOLOGIST DEPARTMENTAL BUYER JERRY CASTRO M.D. Performed By: #### F FN #### [address] Vitamin D+Metabolites [Mass/ volume] in Serum or PlasmaOrdered By: Page Magaña on 05-06-2023 Vitamin D+Metabolites [Mass/Vol] 21.0 ng/mL 30-100 [facility] Comment on above: VITAMIN D STATUS 25( [place])VITAMIN D RANGE (ng/mL) Deficient <20 Insufficient 20 to <30Sufficient 30 to 100Reference: Lino Pena, Gildardo MARTELL, et al. Evaluation,treatment, and prevention of vitamin D deficiency; an Endocrine Society clinical practice guideline. JCEM. 2010; 96(7):1911-30. Alanine aminotransferase [En zymatic activity/volume] in Serum or PlasmaOrdered By: Sarmad Luque on 01-24-2023 ALT [Catalytic activity/Vol] 20 U/L 7-52 [facility] Albumin [Mass/volume] in Ser um or Plasma by Bromocresol green (BCG) dye binding methoOrdered By: Sarmad Luque on 01-24-2023 Albumin BCG dye [Mass/Vol] 4.7 g/dL 3.5-5.7 [facility] Alkaline phosphatase [Enzyma tic activity/volume] in Serum or PlasmaOrdered By: Sarmad Luque on 01-24-2023 ALP [Catalytic activity/Vol] 71 U/L 34-104 [facility] Aspartate aminotransferase [ Enzymatic activity/volume] in Serum or PlasmaOrdered By: Sarmad Luque on 01-24-2023 AST [Catalytic activity/Vol] 14 U/L 13-39 [facility] Automated erythrocytes count in urine sediment (number/area)Ordered By: Sarmad Luque on 01-24-2023 RBC Auto (Urine sed) [#/Area] 20-49 [HPF] 0-4 [facility] Automated leukocytes count i n urine sediment (number/area)Ordered By: Sarmad Luque on 01-24-2023 WBC Auto (Urine sed) [#/Area] 1-2 [HPF] 0-4 [facility] Basic Metabolic Panelon 01-07 Anion gap [Moles/Vol] 11.4 mmol/L Normal 6.0-15.0 [facility] Comment on above: Performed By: #### C BC, LIPASE, BMP, HEPATIC ####[facility] [id number] [place] [address] [facility] Calcium [Mass/Vol] 9.0 mg/dL Normal 8.6-10.3 [facility] Comment on above: Performed By: #### C BC, LIPASE, BMP, HEPATIC ####[facility] [id number] [place] [address] [place] Chloride [Moles/Vol] 105 mmol/L Normal 98-107 [facility] Comment on above: Performed By: #### C BC, LIPASE, BMP, HEPATIC ####[facility] [place] [id number] [facility] CO2 [Moles/Vol] 25.0 mmol/L Normal 21.0-31.0 [facility] Comment on above: Performed By: #### C BC, LIPASE, BMP, HEPATIC ####[place] [id number] [place] [id number] [facility] Creatinine [Mass/Vol] 0.67 mg/dL Normal 0.60-1.20 [facility] Comment on above: Performed By: #### C BC, LIPASE, BMP, HEPATIC ####[place] [id number] [address] Creatinine Clr Calc Pharmacy 103.40 [facility] Comment on above: Performed By: #### C BC, LIPASE, BMP, HEPATIC ####[place] [id number] [address] GFR/1.73 sq M.predicted MDRD (S/P/Bld) [Vol rate/Area] mL/min/{1.73_m2} [facility] Comment on above: Performed By: #### C BC, LIPASE, BMP, HEPATIC ####[place] [id number] [address] Glucose [Mass/Vol] 89 mg/dL Normal 70-100 [facility] Comment on above: Result Comment: [facility] Glucose Reference Range is dependent on time and content of last meal. Glucose of more than 200 mg/dL in a nonstressed, ambulatory subject supports the diagnosis of Diabetes Mellitus. ADA recommended reference range Performed By: #### C BC, LIPASE, BMP, HEPATIC ####[place] [id number] [place] [id number] [facility] Potassium [Moles/Vol] 3.4 mmol/L Low 3.5-5.1 [facility] Comment on above: Performed By: #### C BC, LIPASE, BMP, HEPATIC ####[place] [id number] [place] [id number] [facility] Sodium [Moles/Vol] 138 mmol/L Normal 136-145 [facility] Comment on above: Performed By: #### C BC, LIPASE, BMP, HEPATIC ####[facility] [id number] Urea nitrogen [Mass/Vol] 6 mg/dL Low 7-25 [facility] Comment on above: Performed By: #### C BC, LIPASE, BMP, HEPATIC ####[facility] [id number] [place] [id number] [facility] Basophils Auto (Bld) [#/Vol] Ordered By: Sarmad Luque on 01-24-2023 Basophils (Bld) [#/Vol] 0.1 10*3/uL 0.0-0.2 [facility] Basophils/100 WBC Auto (Bld) Ordered By: Sarmad Luque on 01-24-2023 Basophils/100 WBC (Bld) 0.8 % . F [facility] Bilirubin Test strip Ql (U)O rdered By: Sarmad Luque on 01-24-2023 Bilirubin Ql (U) Negative Negative [facility] Bilirubin.direct [Mass/volum e] in Serum or PlasmaOrdered By: Sarmad Luque on 01-24-2023 Bilirubin.direct [Mass/Vol] 0.20 mg/dL 0.03-0.18 [facility] Bilirubin.total [Mass/volume ] in Serum or PlasmaOrdered By: Sarmad Luque on 01-24-2023 Bilirubin [Mass/Vol] 0.9 mg/dL 0.3-1.0 [facility] Calcium [Mass/volume] in Ser um or PlasmaOrdered By: Sarmad Luque on 01-24-2023 Calcium [Mass/Vol] 9.0 mg/dL 8.6-10.3 [facility] Carbon dioxide, total [Moles /volume] in Serum or PlasmaOrdered By: Sarmad Luque on 01-24-2023 CO2 [Moles/Vol] 25.0 mmol/L 21.0-31.0 [facility] Chloride [Moles/volume] in S gris or PlasmaOrdered By: Sarmad Luque on 01-24-2023 Chloride [Moles/Vol] 105 mmol/L 98-107 [facility] Choriogonadotropin.beta subu nit [Units/volume] in Serum or PlasmaOrdered By: Sarmad Luque on 01-24-2023 HCG.beta subunit Qn 120.64 m[IU]/mL [facility] Comment on above: Approximate Approxim ate hCG Gestational Age Range (mIU/ml) (weeks)0.2-1 5-50 1-2 50-500 2-3 100-5,000 3-4 500-10,000 4-5 1,000-50,000 5-6 10,000-100,000 6-8 15,000-200,000 8-12 10,000-100,000 Color Auto (U)Ordered By: Eric Luque on 01-24-2023 Color (U) Yellow Yellow [facility] Complete Blood Count Auto Di ffon 01-24-2023 Basophils (Bld) [#/Vol] 0.1 10*3/uL Normal 0.0-0.2 [facility] Comment on above: Result Comment: PERF ORMED BY: [place] [address] PATHOLOGIST DEPARTMENTAL BUYER JERRY CASTRO M.D. Performed By: #### F FN #### [facility] [address] [place] [address] Basophils/100 WBC (Bld) 0.8 % Normal . [facility] Comment on above: Performed By: #### F FN #### [facility] [address] [place] [address] [place] Eosinophils (Bld) [#/Vol] 0.1 10*3/uL Normal 0.0-0.45 [facility] Comment on above: Performed By: #### F FN #### [facility] [address] [place] [address] [place] Eosinophils/100 WBC (Bld) 1.3 % Normal . [facility] Comment on above: Performed By: #### F FN #### [facility] [address] Erythrocyte distribution width (RBC) [Ratio] 13.5 % Normal 11.9-15.3 [facility] Comment on above: Performed By: #### F FN #### [address] Hematocrit (Bld) [Volume fraction] 41.4 % Normal 34.0-46.4 [facility] Comment on above: Performed By: #### F FN #### [address] Hemoglobin (Bld) [Mass/Vol] 14.1 g/dL Normal 11.8-15.4 [facility] Comment on above: Performed By: #### F FN #### [address] Lymphocytes (Bld) [#/Vol] 2.4 10*3/uL Normal 1.00-4.8 [facility] Comment on above: Performed By: #### F FN #### [address] Lymphocytes/100 WBC (Bld) 31.9 % Normal . [facility] Comment on above: Performed By: #### F FN #### [address] MCH (RBC) [Entitic mass] 28.8 pg Normal 24.7-34.3 [facility] Comment on above: Performed By: #### F FN #### [address] MCV (RBC) [Entitic vol] 84.3 fL Normal 80-100 [facility] Comment on above: Performed By: #### F FN #### [address] Mean Corpuscular HGB Conc 34.1 g/dL Normal 32.0-35.0 [facility] Comment on above: Performed By: #### F FN #### [address] Monocytes (Bld) [#/Vol] 0.5 10*3/uL Normal 0.0-0.8 [facility] Comment on above: Performed By: #### F FN #### [address] Monocytes/100 WBC (Bld) 17.21 % Normal 0.00-20.00 [facility] Comment on above: Performed By: #### F FN #### [address] Monocytes/100 WBC (Bld) 7.3 % Normal . [facility] Comment on above: Performed By: #### F FN #### [address] Neutrophils (Bld) [#/Vol] 4.3 10*3/uL Normal 1.8-7.7 [facility] Comment on above: Performed By: #### F FN #### [address] Neutrophils/100 WBC (Bld) 58.7 % Normal . [facility] Comment on above: Performed By: #### F FN #### [address] NRBC% 0.1 /100{WBC} Normal 0-0.5 [facility] Comment on above: Performed By: #### F FN #### [address] Platelet mean volume (Bld) [Entitic vol] 9.2 fL Normal 6.3-10.7 [facility] Comment on above: Performed By: #### F FN #### [place] [address] [place] Platelets (Bld) [#/Vol] 222 10*3/uL Normal 150-450 [facility] Comment on above: Performed By: #### F FN #### [place] [address] [place] RBC (Bld) [#/Vol] 4.91 10*6/uL Normal 3.60-5.00 [facility] Comment on above: Performed By: #### F FN #### [address] WBC (Bld) [#/Vol] 7.4 10*3/uL Normal 3.8-11.6 [facility] Comment on above: Performed By: #### F FN #### [facility] [address] Creatinine [Mass/volume] in Serum or PlasmaOrdered By: Sarmad Luque on 01-24-2023 Creatinine [Mass/Vol] 0.67 mg/dL 0.60-1.20 [facility] Dipstick and Microscopicon 0 01-24-2023 Appearance (U) Cloudy Critically abnormal Clear [facility] Comment on above: Order Comment: Name Collection Type:: Clean-Voided Midstream Performed By: #### [facility] ####[place] [id number] Bacteria,Urine None Seen Normal None Seen [facility] Comment on above: Order Comment: Name Collection Type:: Clean-Voided Midstream Performed By: #### A [facility] ####[place] [id number] Bilirubin,Urine Negative Normal Negative [facility] Comment on above: Order Comment: Name Collection Type:: Clean-Voided Midstream Performed By: #### [facility] ####[place] [id number] Color (U) Yellow Normal Yellow [facility] Comment on above: Order Comment: Name Collection Type:: Clean-Voided Midstream Performed By: #### A DDONUATRESSA CG ####[place] [id number] [place] [id number] [facility] Glucose Ql (U) Normal Normal Normal [facility] Comment on above: Order Comment: Name Collection Type:: Clean-Voided Midstream Performed By: #### A DDONUAPLUS CG ####[place] [id number] [place] [id number] [facility] Hyaline Casts,Urine 0-8 Normal 0-8 [facility] Comment on above: Order Comment: Name Collection Type:: Clean-Voided Midstream Performed By: #### A DDONUAPLUS, UHCG ####[address] [address] [facility] Ketones Ql (U) Trace High Negative [facility] Comment on above: Order Comment: Name Collection Type:: Clean-Voided Midstream Performed By: #### A DDONUAPLUS, UHCG ####[place] [id number] [facility] Leukocyte esterase Test strip Ql (U) 1+ High Negative [facility] Comment on above: Order Comment: Name Collection Type:: Clean-Voided Midstream Performed By: #### A DDONUAPLUS CG ####[place] [id number] [facility] Nitrite,Urine Negative Normal Negative [facility] Comment on above: Order Comment: Name Collection Type:: Clean-Voided Midstream Performed By: #### A DDONUATRESSA CG ####[place] [id number] [facility] Occult Blood,Urine 2+ High Negative [facility] Comment on above: Order Comment: Name Collection Type:: Clean-Voided Midstream Performed By: #### A DDONUAPLUS CG ####[address] [address] [facility] pH (U) 6.0 [pH] Normal 5.0-9.0 [facility] [facility] Comment on above: Order Comment: Name Collection Type:: Clean-Voided Midstream Performed By: #### A DDONUAPLUS UHCG ####[address] [address] [facility] Protein,Urine Trace High Negative [facility] Comment on above: Order Comment: Name Collection Type:: Clean-Voided Midstream Performed By: #### A DDONUAPLUS UHCG ####[place] [id number] [facility] RBC,Urine 20-49 High 0-4 [facility] Comment on above: Order Comment: Name Collection Type:: Clean-Voided Midstream Performed By: #### A [facility], [facility] ####[place] [id number] [facility] Specificy Sully,Urine 1.022 Normal 1.001-1.030 [facility] Comment on above: Order Comment: Name Collection Type:: Clean-Voided Midstream Performed By: #### A DDONUAPLUS, [facility] [place] ####[place] [id number] [facility] Squamous Epithelial Cell,Urine 5-9 High 0-2 [facility] Comment on above: Order Comment: Name Collection Type:: Clean-Voided Midstream Performed By: #### A GERALD [facility] [place] ####[address] Urobilinogen,Urine Normal Normal Normal [facility] Comment on above: Order Comment: Name Collection Type:: Clean-Voided Midstream Performed By: #### A GERALD [facility] [place] ####[place] [id number] [facility] WBC,Urine 1-2 Normal 0-4 [facility] Comment on above: Order Comment: Name Collection Type:: Clean-Voided Midstream Performed By: #### A KAUSHALONLINNEA [facility] [place] ####[address] Eosinophils Auto (Bld) [#/Vo l]Ordered By: Sarmad Luque on 01-24-2023 Eosinophils (Bld) [#/Vol] 0.1 10*3/uL 0.0-0.45 [facility] Eosinophils/100 WBC Auto (Bl d)Ordered By: Sarmad Luque on 01-24-2023 Eosinophils/100 WBC (Bld) 1.3 % . [facility] Erythrocyte distribution wid th Auto (RBC) [Ratio]Ordered By: Sarmad Luque on 01-24-2023 Erythrocyte distribution width (RBC) [Ratio] 13.5 % 11.9-15.3 [facility] Globulin Calc (S) [Mass/Vol] Ordered By: Sarmad Luque on 01-24-2023 Globulin (S) [Mass/Vol] 2.7 g/dL [facility] Glucose [Mass/volume] in Ser um or PlasmaOrdered By: Sarmad Luque on 01-24-2023 Glucose [Mass/Vol] 89 mg/dL 70-100 [facility] Comment on above: ADA recommended refe rence rangeRandom Glucose Reference Range is dependent on time and content of last meal. Glucose of more than 200 mg/dL in a nonstressed, ambulatory subject supports the diagnosis of Diabetes Mellitus. HCG ( test) IA.rapi d Ql (U)Ordered By: Sarmad Luque on 01-24-2023 HCG ( test) Ql (U) Positive [facility] HCG,Quantitativeon HCG,Quantitative 120.64 m[iU]/mL Normal [facility] Comment on above: Result Comment: Appr oximate Approximate hCG Gestational Age Range (mIU/ml) (weeks) 0.2-1 5-50 1-2 50-500 2-3 100-5,000 3-4 500-10,000 4-5 1,000-50,000 5-6 10,000-100,000 6-8 15,000-200,000 8-12 10,000-100,000 PERFORMED BY: [facility] [address] [place] [address] PATHOLOGIST DEPARTMENTAL BUYER JERRY CASTRO M.D. Performed By: #### H CGQNT ####[place] [id number] [facility] HCG,Urineon 01-24-2023 Beta HCG ( test) Ql (U) Positive [facility] Comment on above: Order Comment: Name Collection Type:: Clean-Voided Midstream Result Comment: PERF ORMED BY: [facility] [address] [place] [id number] PATHOLOGIST DEPARTMENTAL BUYER JERRY CASTRO M.D. Performed By: #### A DDONUAPLUS, UHCG ####[address] [address] [facility] Hematocrit Auto (Bld) [Volum e fraction]Ordered By: Sarmad Luque on 01-24-2023 Hematocrit (Bld) [Volume fraction] 41.4 % 34.0-46.4 [facility] Hemoglobin [Mass/volume] in BloodOrdered By: Sarmad Luque on 01-24-2023 Hemoglobin (Bld) [Mass/Vol] 14.1 g/dL 11.8-15.4 [facility] Hepatic Panelon 01-24-2023 Albumin [Mass/Vol] 4.7 g/dL Normal 3.5-5.7 [facility] Comment on above: Performed By: #### F FN #### [facility] [address] Albumin/Globulin [Mass ratio] 1.7 {ratio} Normal [facility] Comment on above: Performed By: #### F FN #### [address] ALP [Catalytic activity/Vol] 71 U/L Normal 34-104 [facility] Comment on above: Performed By: #### F FN #### [address] ALT [Catalytic activity/Vol] 20 U/L Normal 7-52 [facility] Comment on above: Performed By: #### F FN #### [address] AST [Catalytic activity/Vol] 14 U/L Normal 13-39 [facility] Comment on above: Performed By: #### F FN #### [facility] [address] [place] [address] [place] Bilirubin [Mass/Vol] 0.9 mg/dL Normal 0.3-1.0 [facility] Comment on above: Performed By: #### F FN #### [place] [address] [place] Bilirubin,Indirect 0.7 mg/dL Normal [facility] Comment on above: Performed By: #### F FN #### [place] [address] [place] Bilirubin.indirect [Mass/Vol] 0.20 mg/dL High 0.03-0.18 [facility] Comment on above: Performed By: #### F FN #### [facility] [address] Globulin (S) [Mass/Vol] 2.7 g/dL Normal F [facility] Comment on above: Performed By: #### F FN #### [facility] [address] Protein [Mass/Vol] 7.4 g/dL Normal 6.4-8.9 [facility] Comment on above: Performed By: #### F FN #### [facility] [address] Ketones Auto test strip (U) [Mass/Vol]Ordered By: Sarmad Luque on 01-24-2023 Ketones (U) [Mass/Vol] Trace Negative [facility] - UrinalysisOrder ed By: Sarmad Luqeu on 01-24-2023 Hyaline casts LM Ql (Urine sed) 0-8 [LPF] 0-8 [facility] Leukocytes [#/volume] correc mague for nucleated erythrocytes in Blood by Automated counOrdered By: Sarmad Luque on 01-24-2023 WBC corrected for nucl RBC Auto (Bld) [#/Vol] 7.4 10*3/uL 3.8-11.6 [facility] Lipaseon 01-24-2023 Lipase [Catalytic activity/Vol] 47.0 U/L Normal 11.0-82.0 [facility] Comment on above: Result Comment: PERF ORMED BY: [facility] [address] [place] [address] PATHOLOGIST DEPARTMENTAL BUYER JERRY CASTRO M.D. Performed By: #### C BC, LIPASE, BMP, HEPATIC ####[facility] [id number] Lipase [Enzymatic activity/v olume] in Serum or PlasmaOrdered By: Sarmad Luque on 01-24-2023 Lipase [Catalytic activity/Vol] 47.0 U/L 11.0-82.0 [facility] Lymphocytes Auto (Bld) [#/Vo l]Ordered By: Sarmad Luque on 01-24-2023 Lymphocytes (Bld) [#/Vol] 2.4 10*3/uL 1.00-4.8 [facility] Lymphocytes/100 WBC Auto (Bl d)Ordered By: Sarmad Luque on 01-24-2023 Lymphocytes/100 WBC (Bld) 31.9 % . [facility] MCH Auto (RBC) [Entitic mass ]Ordered By: Sarmad Luque on 01-24-2023 MCH (RBC) [Entitic mass] 28.8 pg 24.7-34.3 [facility] MCHC Auto (RBC) [Mass/Vol]Or dered By: Sarmad Luque on 01-24-2023 MCHC (RBC) [Mass/Vol] 34.1 g/dL 32.0-35.0 Fir [facility] MCV Auto (RBC) [Entitic vol] Ordered By: Sarmad Luque on 01-24-2023 MCV (RBC) [Entitic vol] 84.3 fL 80-100 F [facility] Monocyte distribution width [Entitic volume] in Blood by AutomatedOrdered By: Sarmad Luque on 01-24-2023 Monocyte distribution width Auto (Bld) [Entitic vol] 17.21 % 0.00-20.00 [facility] Monocytes Auto (Bld) [#/Vol] Ordered By: Sarmad Luque on 01-24-2023 Monocytes (Bld) [#/Vol] 0.5 10*3/uL 0.0-0.8 [facility] Monocytes/100 WBC Auto (Bld) Ordered By: Sarmad Luque on 01-24-2023 Monocytes/100 WBC (Bld) 7.3 % . F [facility] Neutrophils Auto (Bld) [#/Vo l]Ordered By: Sarmad Luque on 01-24-2023 Neutrophils (Bld) [#/Vol] 4.3 10*3/uL 1.8-7.7 [facility] Neutrophils/100 WBC Auto (Bl d)Ordered By: Sarmad Luque on 01-24-2023 Neutrophils/100 WBC (Bld) 58.7 % . [facility] Nitrite Test strip Ql (U)Ord ered By: Sarmad Luque on 01-24-2023 Nitrite Ql (U) Negative Negative [facility] No Panel InformationOrdered By: Sarmad Luque on 01-24-2023 Estimated GFR (CKD-EPI) > 60.0 mL/Min [facility] Creatinine Clearance (Chem 103.40 [facility] Nucleated erythrocytes [Pres ence] in Blood by Automated countOrdered By: Sarmad Luque on 01-24-2023 Nucleated RBC Auto Ql (Bld) 0.1 /100{WBC} 0-0.5 [facility] Platelet mean volume Auto (B ld) [Entitic vol]Ordered By: Sarmad Luque on 01-24-2023 Platelet mean volume (Bld) [Entitic vol] 9.2 fL 6.3-10.7 [facility] Platelets Auto (Bld) [#/Vol] Ordered By: Sarmad Luque on 01-24-2023 Platelets (Bld) [#/Vol] 222 10*3/uL 150-450 [facility] Potassium [Moles/volume] in Serum or PlasmaOrdered By: Sarmad Luque on 01-24-2023 Potassium [Moles/Vol] 3.4 mmol/L 3.5-5.1 [facility] Protein Auto test strip (U) [Mass/Vol]Ordered By: Sarmad Luque on 01-24-2023 Protein (U) [Mass/Vol] Trace mg/dL Negative F [facility] Protein [Mass/volume] in Ser um or PlasmaOrdered By: Sarmad Luque on 01-24-2023 Protein [Mass/Vol] 7.4 g/dL 6.4-8.9 [facility] RBC Auto (Bld) [#/Vol]Ordere d By: Sarmad Luque on 01-24-2023 RBC (Bld) [#/Vol] 4.91 10*6/uL 3.60-5.00 [facility] Serum or plasma albumin/glob ulin mass ratioOrdered By: Sarmad Luque on 01-24-2023 Albumin/Globulin [Mass ratio] 1.7 {ratio} [facility] Serum or plasma anion gap de terminationOrdered By: Sarmad Luque on 01-24-2023 Anion gap [Moles/Vol] 11.4 mmol/L 6.0-15.0 [facility] Serum or plasma non-glucuron idated bilirubin measurement (mass/volume)Ordered By: Sarmad Luque on 01-24-2023 Bilirubin.indirect [Mass/Vol] 0.7 mg/dL [facility] Sodium [Moles/volume] in Ser um or PlasmaOrdered By: Sarmad Luque on 01-24-2023 Sodium [Moles/Vol] 138 mmol/L 136-145 [facility] Specific gravity Auto test s trip (U) [Rel density]Ordered By: Sarmad Luque on 01-24-2023 Specific gravity (U) [Rel density] 1.022 1.001-1.030 [facility] Squamous epithelial cells de tection in urine sediment by light microscopyOrdered By: Sarmad Luque on 01-24-2023 Epithelial cells.squamous LM Ql (Urine sed) 5-9 [HPF] 0-2 [facility] US OB transvaginalon 023 US OB transvaginal [facility] [place] [address] Ultrasound Report Signed Patient: Elyssa Smith MR#: [id number] : 1990 Acct:[id number] Age/Sex: 32 / F ADM Date: 01/24/23 Loc: ER Room: Type: [facility] ER Attending Dr: Ordering Provider: Sarmad Luque DO Date of Service: 01/24/23 US/US OB <= 14 weeks fetus: Abdominal Pain ([id number]) US/US OB transvaginal: PAIN Copies to: Sarmad [...] Carrillo Ziegler M.D.01/24/2023 2:06 PM Dictation Location: [place] [address] Tech: Ashely Sharmila Transcribed By: SILVINA 01/24/23 1406 Dictated By: Carrillo Ziegler II, MD 01/24/23 1401 Signed By: 01/24/23 1406 Normal [facility] US renal BIon 01-24-2023 US renal BI [facility] [place] [address] Ultrasound Report Signed Patient: Elyssa Smith MR#: [id number] : 1990 Acct:[id number] Age/Sex: 32 / F ADM Date: 01/24/23 Loc: ER Room: Type: [facility] ER Attending Dr: Ordering Provider: Sarmad Luque [...] Carrillo Ziegler M.D.01/24/2023 2:12 PM Dictation Location: [place] [address] Tech: Ashely Doll Transcribed By: SILVINA 01/24/23 1412 Dictated By: Carrillo Ziegler II, MD 01/24/23 1410 Signed By: 01/24/23 1412 Normal [facility] Urea nitrogen [Mass/volume] in Serum or PlasmaOrdered By: Sarmad Luque on 01-24-2023 Urea nitrogen [Mass/Vol] 6 mg/dL 7 [facility] Urine bacteria detection by automated methodOrdered By: Sarmad Luque on 01-24-2023 Bacteria Auto Ql (U) None seen None Seen [facility] Urine clarity by refractomet ry automatedOrdered By: Sarmad Luque on 01-24-2023 Clarity Refractometry automated (U) Cloudy Clear [facility] Urine glucose measurement by automated test strip (mass/volume)Ordered By: Sarmad Luque on 01-24-2023 Glucose Auto test strip (U) [Mass/Vol] Normal mg/dL Normal [facility] Urine hemoglobin detection b y automated test stripOrdered By: Sarmad Luque on 01-24-2023 Hemoglobin Auto test strip Ql (U) 2+ Negative [facility] Urine leukocyte esterase det ection by automated test stripOrdered By: Sarmad Luque on 01-24-2023 Leukocyte esterase Auto test strip Ql (U) 1+ Negative [facility] Urobilinogen Auto test strip (U) [Mass/Vol]Ordered By: Sarmad Luque on 01-24-2023 Urobilinogen (U) [Mass/Vol] Normal mg/dL Normal [facility] WBC Auto (Bld) [#/Vol]Ordere d By: Sarmad Luque on 01-24-2023 WBC (Bld) [#/Vol] 7.4 10*3/uL 3.8-11.6 [facility] pH Auto test strip (U)Ordere d By: Sarmad Luque on 01-24-2023 pH (U) 6.0 [pH] 5.0-9.0 [facility] ALFRED with Reflexon 10-27-2022 ALFRED with Reflex Negative Normal Negative [facility] Comment on above: Result Comment: Perf ormed at: CB - [facility] [address] [id number] Slabber: Ismael Suh PhD, Phone: [phone] PERFORMED BY: [place] [address] PATHOLOGIST DEPARTMENTAL BUYER JERRY CASTRO M.D. Performed By: #### F FN #### [address] Alanine aminotransferase [En zymatic activity/volume] in Serum or PlasmaOrdered By: Page Magaña on 10-27-2022 ALT [Catalytic activity/Vol] 30 U/L 7-52 [facility] Albumin [Mass/volume] in Ser um or Plasma by Bromocresol green (BCG) dye binding methoOrdered By: Page Magaña on 10-27-2022 Albumin BCG dye [Mass/Vol] 4.2 g/dL 3.5-5.7 [facility] Alkaline phosphatase [Enzyma tic activity/volume] in Serum or PlasmaOrdered By: Page Magaña on 10-27-2022 ALP [Catalytic activity/Vol] 86 U/L 34-104 [facility] Aspartate aminotransferase [ Enzymatic activity/volume] in Serum or PlasmaOrdered By: Page Magaña on 10-27-2022 AST [Catalytic activity/Vol] 17 U/L 13-39 [facility] Basophils Auto (Bld) [#/Vol] Ordered By: Page Magaña on 10-27-2022 Basophils (Bld) [#/Vol] 0.1 10*3/uL 0.0-0.2 [facility] Basophils/100 WBC Auto (Bld) Ordered By: Page Magaña on 10-27-2022 Basophils/100 WBC (Bld) 0.6 % . F [facility] Bilirubin.total [Mass/volume ] in Serum or PlasmaOrdered By: Page Magaña on 10-27-2022 Bilirubin [Mass/Vol] 0.6 mg/dL 0.3-1.0 [facility] Calcium [Mass/volume] in Ser um or PlasmaOrdered By: Page Magaña on 10-27-2022 Calcium [Mass/Vol] 9.0 mg/dL 8.6-10.3 [facility] Carbon dioxide, total [Moles /volume] in Serum or PlasmaOrdered By: Page Magaña on 10-27-2022 CO2 [Moles/Vol] 24.7 mmol/L 21.0-31.0 [facility] Chloride [Moles/volume] in S gris or PlasmaOrdered By: Page Magaña on 10-27-2022 Chloride [Moles/Vol] 107 mmol/L 98-107 [facility] Cholesterol [Mass/volume] in Serum or PlasmaOrdered By: Page Magaña on 10-27-2022 Cholesterol [Mass/Vol] 209 mg/dL 140-200 [facility] Comment on above: Chol less than 200 m g/dl low riskChol 201-239 mg/dl borderline riskChol 240 mg/dl and greater high risk Cholesterol in LDL Calc [Mas s/Vol]Ordered By: Page Magaña on 10-27-2022 Cholesterol in LDL [Mass/Vol] 155 mg/dL 0-100 [facility] Comment on above: LDL ATP III CLASSIFI CATIONLDL less than 100 mg/dL OptimalLDL 100-129 mg/dL Near or above optimalLDL 130-159 mg/dL Borderline highLDL 160-189 mg/dL HighLDL greater than 189 mg/dL Very high Cholesterol in VLDL Calc [Ma ss/Vol]Ordered By: Page Magaña on 10-27-2022 Cholesterol in VLDL [Mass/Vol] 11 mg/dL [facility] Complete Blood Count Auto Di ffon 10-27-2022 Basophils (Bld) [#/Vol] 0.1 10*3/uL Normal 0.0-0.2 [facility] Comment on above: Result Comment: PERF ORMED BY: [place] [address] PATHOLOGIST DEPARTMENTAL BUYER JERYR CASTRO M.D. Performed By: #### L IPID, CMP, CBC, TSH3 wRFLX, [id number] #### [facility] [address] [place] [address] #### ALFRED CHOICE, RA #### [facility] , Basophils/100 WBC (Bld) 0.6 % Normal . [facility] Comment on above: Performed By: #### L IPID, CMP, CBC, TSH3 wRFLX, [id number] #### [facility] [address] [place] [address] [place] #### ALFRED CHOICE, RA #### [facility] , Eosinophils (Bld) [#/Vol] 0.1 10*3/uL Normal 0.0-0.45 [facility] Comment on above: Performed By: #### L IPID, CMP, CBC, TSH3 wRFLX, [id number] #### [facility] [address] [place] [address] [place] #### ALFRED CHOICE, RA #### [facility] , Eosinophils/100 WBC (Bld) 1.6 % Normal . [facility] Comment on above: Performed By: #### L IPID, CMP, CBC, TSH3 wRFLX, [id number] #### [facility] [address] [place] [address] [place] #### ALFRED CHOICE, RA #### [facility] , Erythrocyte distribution width (RBC) [Ratio] 14.4 % Normal 11.9-15.3 [facility] Comment on above: Performed By: #### L IPID, CMP, CBC, TSH3 wRFLX, [id number] #### [place] [address] [place] #### ALFRED CHOICE, RA #### [facility] , Hematocrit (Bld) [Volume fraction] 40.5 % Normal 34.0-46.4 [facility] Comment on above: Performed By: #### L IPID, CMP, CBC, TSH3 wRFLX, [id number] #### [place] [address] [place] #### ALFRED CHOICE, RA #### [facility] , Hemoglobin (Bld) [Mass/Vol] 13.5 g/dL Normal 11.8-15.4 [facility] Comment on above: Performed By: #### L IPID, CMP, CBC, TSH3 wRFLX, [id number] #### [place] [address] [place] #### ALFRED CHOICE, RA #### [facility] , Lymphocytes (Bld) [#/Vol] 2.8 10*3/uL Normal 1.00-4.8 [facility] Comment on above: Performed By: #### L IPID, CMP, CBC, TSH3 wRFLX, [id number] #### [place] [address] [place] #### ALFRED CHOICE, RA #### [facility] , Lymphocytes/100 WBC (Bld) 30.3 % Normal . [facility] Comment on above: Performed By: #### L IPID, CMP, CBC, TSH3 wRFLX, [id number] #### [facility] [address] [place] [address] [place] #### ALFRED CHOICE, RA #### [facility] , MCH (RBC) [Entitic mass] 28.1 pg Normal 24.7-34.3 [facility] Comment on above: Performed By: #### L IPID, CMP, CBC, TSH3 wRFLX, [id number] #### [facility] [address] [place] [address] [place] #### ALFRED CHOICE, RA #### [facility] , MCV (RBC) [Entitic vol] 84.6 fL Normal 80-100 F [facility] Comment on above: Performed By: #### L IPID, CMP, CBC, TSH3 wRFLX, [id number] #### [facility] [address] [place] [address] [place] #### ALFRED CHOICE, RA #### [facility] , Mean Corpuscular HGB Conc 33.3 g/dL Normal 32.0-35.0 [facility] Comment on above: Performed By: #### L IPID, CMP, CBC, TSH3 wRFLX, [id number] #### [address] #### ALFRED CHOICE, RA #### [facility] , Monocytes (Bld) [#/Vol] 0.6 10*3/uL Normal 0.0-0.8 [facility] Comment on above: Performed By: #### L IPID, CMP, CBC, TSH3 wRFLX, [id number] #### [place] [address] [place] #### ALFRED CHOICE, RA #### [facility] , Monocytes/100 WBC (Bld) 6.7 % Normal . F [facility] Comment on above: Performed By: #### L IPID, CMP, CBC, TSH3 wRFLX, [id number] #### [facility] [address] [place] [address] [place] #### ALFRED CHOICE, RA #### [facility] , Neutrophils (Bld) [#/Vol] 5.5 10*3/uL Normal 1.8-7.7 [facility] Comment on above: Performed By: #### L IPID, CMP, CBC, TSH3 wRFLX, [id number] #### [place] [address] [place] #### ALFRED CHOICE, RA #### [facility] , Neutrophils/100 WBC (Bld) 60.8 % Normal . [facility] Comment on above: Performed By: #### L IPID, CMP, CBC, TSH3 wRFLX, [id number] #### [facility] [address] [place] [address] [place] #### ALFRED CHOICE, RA #### [facility] , NRBC% 0.3 /100{WBC} Normal 0-0.5 [facility] Comment on above: Performed By: #### L IPID, CMP, CBC, TSH3 wRFLX, [id number] #### [address] #### ALFRED CHOICE, RA #### [facility] , Platelet mean volume (Bld) [Entitic vol] 8.9 fL Normal 6.3-10.7 [facility] Comment on above: Performed By: #### L IPID, CMP, CBC, TSH3 wRFLX, [id number] #### [place] [address] [place] #### ALFRED CHOICE, RA #### [facility] , Platelets (Bld) [#/Vol] 246 10*3/uL Normal 150-450 [facility] Comment on above: Performed By: #### L IPID, CMP, CBC, TSH3 wRFLX, [id number] #### [place] [address] [place] #### ALFRED CHOICE, RA #### [facility] , RBC (Bld) [#/Vol] 4.79 10*6/uL Normal 3.60-5.00 [facility] Comment on above: Performed By: #### L IPID, CMP, CBC, TSH3 wRFLX, [id number] #### [address] [place] [address] [place] #### ALFRED CHOICE, RA #### [facility] , WBC (Bld) [#/Vol] 9.1 10*3/uL Normal 3.8-11.6 [facility] Comment on above: Performed By: #### L IPID, CMP, CBC, TSH3 wRFLX, [id number] #### [facility] [address] [place] [address] [place] #### ALFRED CHOICE, RA #### [facility] , Comprehensive Metabolic Pane mauricio 10-27-2022 Albumin [Mass/Vol] 4.2 g/dL Normal 3.5-5.7 [facility] Comment on above: Order Comment: PT IS FASTING Performed By: #### L IPID, CMP, CBC, TSH3 wRFLX, [id number] #### [facility] [address] [place] [address] [place] #### ALFRED CHOICE, RA #### [facility] , Albumin/Globulin [Mass ratio] 1.8 {ratio} Normal [facility] Comment on above: Order Comment: PT IS FASTING Performed By: #### L IPID, CMP, CBC, TSH3 wRFLX, [id number] #### [facility] [address] [place] [address] [place] #### ALFRED CHOICE, RA #### [facility] , ALP [Catalytic activity/Vol] 86 U/L Normal 34-104 [facility] Comment on above: Order Comment: PT IS FASTING Performed By: #### L IPID, CMP, CBC, TSH3 wRFLX, [id number] #### [facility] [address] [place] [address] [place] #### ALFRED CHOICE, RA #### [facility] , ALT [Catalytic activity/Vol] 30 U/L Normal 7-52 [facility] Comment on above: Order Comment: PT IS FASTING Performed By: #### L IPID, CMP, CBC, TSH3 wRFLX, [id number] #### [facility] [address] [place] [address] [place] #### ALFRED CHOICE, RA #### [facility] , Anion gap [Moles/Vol] 10.6 mmol/L Normal 6.0-15.0 [facility] Comment on above: Order Comment: PT IS FASTING Performed By: #### L IPID, CMP, CBC, TSH3 wRFLX, [id number] #### [facility] [address] [place] [address] [place] #### ALFRED CHOICE, RA #### [facility] , AST [Catalytic activity/Vol] 17 U/L Normal 13-39 [facility] Comment on above: Order Comment: PT IS FASTING Performed By: #### L IPID, CMP, CBC, TSH3 wRFLX, [id number] #### [facility] [address] [place] [address] [place] #### ALFRED CHOICE, RA #### [facility] , Bilirubin [Mass/Vol] 0.6 mg/dL Normal 0.3-1.0 [facility] Comment on above: Order Comment: PT IS FASTING Performed By: #### L IPID, CMP, CBC, TSH3 wRFLX, [id number] #### [address] #### ALFRED CHOICE, RA #### [facility] , Calcium [Mass/Vol] 9.0 mg/dL Normal 8.6-10.3 [facility] Comment on above: Order Comment: PT IS FASTING Performed By: #### L IPID, CMP, CBC, TSH3 wRFLX, [id number] #### [facility] [address] [place] [address] [place] #### ALFRED CHOICE, RA #### [facility] , Chloride [Moles/Vol] 107 mmol/L Normal 98-107 [facility] Comment on above: Order Comment: PT IS FASTING Performed By: #### L IPID, CMP, CBC, TSH3 wRFLX, [id number] #### [facility] [address] [place] [address] [place] #### ALFRED CHOICE, RA #### [facility] , CO2 [Moles/Vol] 24.7 mmol/L Normal 21.0-31.0 [facility] Comment on above: Order Comment: PT IS FASTING Performed By: #### L IPID, CMP, CBC, TSH3 wRFLX, [id number] #### [place] [address] [place] #### ALFRED CHOICE, RA #### [facility] , Creatinine [Mass/Vol] 0.62 mg/dL Normal 0.60-1.20 [facility] Comment on above: Order Comment: PT IS FASTING Performed By: #### L IPID, CMP, CBC, TSH3 wRFLX, [id number] #### [place] [address] [place] #### ALFRED CHOICE, RA #### [facility] , GFR/1.73 sq M.predicted MDRD (S/P/Bld) [Vol rate/Area] mL/min/{1.73_m2} [facility] Comment on above: Order Comment: PT IS FASTING Performed By: #### L IPID, CMP, CBC, TSH3 wRFLX, [id number] #### [facility] [address] [place] [address] [place] #### ALFRED CHOICE, RA #### [facility] , Globulin (S) [Mass/Vol] 2.3 g/dL Normal [facility] Comment on above: Order Comment: PT IS FASTING Performed By: #### L IPID, CMP, CBC, TSH3 wRFLX, [id number] #### [place] [address] [place] #### ALFRED CHOICE, RA #### [facility] , Glucose [Mass/Vol] 93 mg/dL Normal 70-100 [facility] Comment on above: Order Comment: PT IS FASTING Result Comment: [facility] Glucose Reference Range is dependent on time and content of last meal. Glucose of more than 200 mg/dL in a nonstressed, ambulatory subject supports the diagnosis of Diabetes Mellitus. ADA recommended reference range Performed By: #### L IPID, CMP, CBC, TSH3 wRFLX, [id number] #### [place] [address] [place] #### ALFRED CHOICE, RA #### [facility] , Potassium [Moles/Vol] 4.3 mmol/L Normal 3.5-5.1 [facility] Comment on above: Order Comment: PT IS FASTING Performed By: #### L IPID, CMP, CBC, TSH3 wRFLX, [id number] #### [address] #### ALFRED CHOICE, RA #### [facility] , Protein [Mass/Vol] 6.5 g/dL Normal 6.4-8.9 [facility] Comment on above: Order Comment: PT IS FASTING Performed By: #### L IPID, CMP, CBC, TSH3 wRFLX, [id number] #### [place] [address] [place] #### ALFRED CHOICE, RA #### [facility] , Sodium [Moles/Vol] 138 mmol/L Normal 136-145 [facility] Comment on above: Order Comment: PT IS FASTING Performed By: #### L IPID, CMP, CBC, TSH3 wRFLX, [id number] #### [place] [address] [place] #### ALFRED CHOICE, RA #### [facility] , Urea nitrogen [Mass/Vol] 12 mg/dL Normal 7-25 [facility] Comment on above: Order Comment: PT IS FASTING Performed By: #### L IPID, CMP, CBC, TSH3 wRFLX, [id number] #### [facility] [address] [id number] [facility] #### ALFRED CHRISTINA, RA #### [facility] , Creatinine [Mass/volume] in Serum or PlasmaOrdered By: Page Magaña on 10-27-2022 Creatinine [Mass/Vol] 0.62 mg/dL 0.60-1.20 [facility] Eosinophils Auto (Bld) [#/Vo l]Ordered By: Page Magaña on 10-27-2022 Eosinophils (Bld) [#/Vol] 0.1 10*3/uL 0.0-0.45 [facility] Eosinophils/100 WBC Auto (Bl d)Ordered By: Page Magaña on 10-27-2022 Eosinophils/100 WBC (Bld) 1.6 % . [facility] Erythrocyte distribution wid th Auto (RBC) [Ratio]Ordered By: Page Magaña on 10-27-2022 Erythrocyte distribution width (RBC) [Ratio] 14.4 % 11.9-15.3 [facility] Globulin Calc (S) [Mass/Vol] Ordered By: Page Magaña on 10-27-2022 Globulin (S) [Mass/Vol] 2.3 g/dL [facility] Glucose [Mass/volume] in Ser um or PlasmaOrdered By: Page Magaña on 10-27-2022 Glucose [Mass/Vol] 93 mg/dL 70-100 [facility] Comment on above: ADA recommended refe rence rangeRandom Glucose Reference Range is dependent on time and content of last meal. Glucose of more than 200 mg/dL in a nonstressed, ambulatory subject supports the diagnosis of Diabetes Mellitus. Hematocrit Auto (Bld) [Volum e fraction]Ordered By: Page Magaña on 10-27-2022 Hematocrit (Bld) [Volume fraction] 40.5 % 34.0-46.4 [facility] Hemoglobin [Mass/volume] in BloodOrdered By: Page Magaña 10-27-2022 Hemoglobin (Bld) [Mass/Vol] 13.5 g/dL 11.8-15.4 [facility] Leukocytes [#/volume] correc mague for nucleated erythrocytes in Blood by Automated counOrdered By: Page Magaña on 10-27-2022 WBC corrected for nucl RBC Auto (Bld) [#/Vol] 9.1 10*3/uL 3.8-11.6 [facility] Lipid Panelon 10-27-2022 Cholesterol [Mass/Vol] 209 mg/dL High 140-200 [facility] Comment on above: Order Comment: PT IS FASTING Result Comment: Chol less than 200 mg/dl low risk Chol 201-239 mg/dl borderline risk Chol 240 mg/dl and greater high risk Performed By: #### L IPID, CMP, CBC, TSH3 wRFLX, [id number] #### [facility] [address] #### ALFRED VASQUEZ, RA #### [facility] , Cholesterol in HDL [Mass/Vol] 43 mg/dL Normal 35-85 [facility] Comment on above: Order Comment: PT IS FASTING Result Comment: HDL CHOL ATP-III CLASSIFICATION Cardiovascular Risk HDL > or equal to 60 mg/dL LOW HDL < 40 mg/dL HIGH Performed By: #### L IPID, CMP, CBC, TSH3 wRFLX, [id number] #### [facility] [address] [place] [address] [place] #### ALFRED VASQUEZ, RA #### [facility] , Cholesterol.total/Poonam sterol in HDL [Mass ratio] 4.9 {ratio} Normal <5.0 [facility] Comment on above: Order Comment: PT IS FASTING Performed By: #### L IPID, CMP, CBC, TSH3 wRFLX, [id number] #### [facility] [address] [place] [address] [place] #### ALFRED CHOICE, RA #### [facility] , LDL Cholesterol,Calculated 155 mg/dL High 0-100 [facility] Comment on above: Order Comment: PT IS FASTING Result Comment: LDL ATP III CLASSIFICATION LDL less than 100 mg/dL Optimal LDL 100-129 mg/dL Near or above optimal LDL 130-159 mg/dL Borderline high LDL 160-189 mg/dL High LDL greater than 189 mg/dL Very high Performed By: #### L IPID, CMP, CBC, TSH3 wRFLX, [id number] #### [facility] [address] [place] [address] [place] #### ALFRED CHOICE, RA #### [facility] , Triglyceride w/Reflex 55 mg/dL Normal 0-149 [facility] Comment on above: Order Comment: PT IS FASTING Result Comment: TRIG ATP III CLASSIFICATION TRIG less than 150 mg/dL Normal TRIG 150-199 mg/dL Borderline high TRIG 200-500 mg/dL High TRIG greater than 500 mg/dL Very high Standard traceable to the Center for Disease Conrtrol and Prevention (CDC) test method. Performed By: #### L IPID, CMP, CBC, TSH3 wRFLX, [id number] #### [facility] [address] [place] [address] [place] #### ALFRED CHOICE, RA #### [facility] , VLDL CHOLESTEROL 11 mg/dL Normal [facility] Comment on above: Order Comment: PT IS FASTING Performed By: #### L IPID, CMP, CBC, TSH3 wRFLX, [id number] #### [facility] [address] [place] [address] [place] #### ALFRED CHOICE, RA #### [facility] , Lymphocytes Auto (Bld) [#/Vo l]Ordered By: Page Magaña on 10-27-2022 Lymphocytes (Bld) [#/Vol] 2.8 10*3/uL 1.00-4.8 [facility] Lymphocytes/100 WBC Auto (Bl d)Ordered By: Page Magaña on 10-27-2022 Lymphocytes/100 WBC (Bld) 30.3 % . [facility] MCH Auto (RBC) [Entitic mass ]Ordered By: Page Magaña on 10-27-2022 MCH (RBC) [Entitic mass] 28.1 pg 24.7-34.3 [facility] MCHC Auto (RBC) [Mass/Vol]Or dered By: Page Magaña on 10-27-2022 MCHC (RBC) [Mass/Vol] 33.3 g/dL 32.0-35.0 Fir [facility] MCV Auto (RBC) [Entitic vol] Ordered By: Page Magaña on 10-27-2022 MCV (RBC) [Entitic vol] 84.6 fL 80-100 F [facility] Monocytes Auto (Bld) [#/Vol] Ordered By: Page Magaña on 10-27-2022 Monocytes (Bld) [#/Vol] 0.6 10*3/uL 0.0-0.8 [facility] Monocytes/100 WBC Auto (Bld) Ordered By: Page Magaña on 10-27-2022 Monocytes/100 WBC (Bld) 6.7 % . F [facility] Neutrophils Auto (Bld) [#/Vo l]Ordered By: Page Magaña on 10-27-2022 Neutrophils (Bld) [#/Vol] 5.5 10*3/uL 1.8-7.7 [facility] Neutrophils/100 WBC Auto (Bl d)Ordered By: Page Magaña on 10-27-2022 Neutrophils/100 WBC (Bld) 60.8 % . [facility] No Panel InformationOrdered By: Page Magaña on 10-27-2022 Estimated GFR (CKD-EPI) > 60.0 mL/Min [facility] Creatinine Clearance (Chem N/A [facility] Nucleated erythrocytes [Pres ence] in Blood by Automated countOrdered By: Page Magaña on 10-27-2022 Nucleated RBC Auto Ql (Bld) 0.3 /100{WBC} 0-0.5 [facility] Platelet mean volume Auto (B ld) [Entitic vol]Ordered By: Page Magaña on 10-27-2022 Platelet mean volume (Bld) [Entitic vol] 8.9 fL 6.3-10.7 [facility] Platelets Auto (Bld) [#/Vol] Ordered By: Page Magaña on 10-27-2022 Platelets (Bld) [#/Vol] 246 10*3/uL 150-450 [facility] Potassium [Moles/volume] in Serum or PlasmaOrdered By: Page Magaña on 10-27-2022 Potassium [Moles/Vol] 4.3 mmol/L 3.5-5.1 [facility] Protein [Mass/volume] in Ser um or PlasmaOrdered By: Page Magaña on 10-27-2022 Protein [Mass/Vol] 6.5 g/dL 6.4-8.9 [facility] RBC Auto (Bld) [#/Vol]Ordere d By: Page Magaña on 10-27-2022 RBC (Bld) [#/Vol] 4.79 10*6/uL 3.60-5.00 [facility] Rheumatoid Factoron 10-28-19 Rheumatoid Factor <10.0 Normal <14.0 [facility] Comment on above: Result Comment: Perf ormed at: CB - [facility] [address] [id number] Slabber: Ismael Suh PhD, Phone: [phone] Performed By: #### F FN #### [address] Serum or plasma albumin/glob ulin mass ratioOrdered By: Page Magaña on 10-27-2022 Albumin/Globulin [Mass ratio] 1.8 {ratio} [facility] Serum or plasma anion gap de terminationOrdered By: Page Magaña on 10-27-2022 Anion gap [Moles/Vol] 10.6 mmol/L 6.0-15.0 [facility] Serum or plasma high density lipoprotein (HDL) cholesterol measurementOrdered By: Page Magaña on 10-27-2022 Cholesterol in HDL [Mass/Vol] 43 mg/dL 35-85 [facility] Comment on above: HDL CHOL ATP-III CLA SSIFICATION Cardiovascular RiskHDL > or equal to 60 mg/dL LOWHDL < 40 mg/dL HIGH Serum or plasma total choles terol/high density lipoprotein (HDL) cholesterol mass ratOrdered By: Page Magaña on 10-27-2022 Cholesterol.total/Poonam sterol in HDL [Mass ratio] 4.9 {ratio} <5.0 [facility] Sodium [Moles/volume] in Ser um or PlasmaOrdered By: Page Magaña on 10-27-2022 Sodium [Moles/Vol] 138 mmol/L 136-145 [facility] Thyroid Stim Hormone w/Rflxo n 10-27-2022 Thyroid Stim Hormone w/Rflx 0.76 u[iU]/mL Normal 0.45-5.33 [facility] Comment on above: Order Comment: PT IS FASTING Performed By: #### L IPID, CMP, CBC, TSH3 wRFLX, [id number] #### [address] #### ALFRED CHOICE, RA #### [facility] , Thyrotropin [Units/volume] i n Serum or PlasmaOrdered By: Page Magaña on 10-27-2022 TSH Qn 0.76 m[IU]/L 0.45-5.33 [facility] Triglyceride [Mass/volume] i n Serum or PlasmaOrdered By: Page Magaña on 10-27-2022 Triglyceride [Mass/Vol] 55 mg/dL 0-149 [facility] Comment on above: TRIG ATP III CLASSIF ICATIONTRIG less than 150 mg/dL NormalTRIG 150-199 mg/dL Borderline highTRIG 200-500 mg/dL High TRIG greater than 500 mg/dL Very highStandard traceable to the Center for Disease Conrtrol and Prevention (CDC) test method. Urea nitrogen [Mass/volume] in Serum or PlasmaOrdered By: Page Magaña on 10-27-2022 Urea nitrogen [Mass/Vol] 12 mg/dL 7-25 [facility] Vitamin D 25 Hydroxy Totalon 10-27-2022 Vitamin D 25 Hydroxy Total 22.1 ng/mL Low 30-100 [facility] Comment on above: Order Comment: Comme nt patients 22 - 34 6/7 weeks prior to vaginal exam Result Comment: HARVINDER MIN D STATUS 25(OH)VITAMIN D RANGE (ng/mL) Deficient <20 Insufficient 20 to <30 Sufficient 30 to 100 Reference: Helen MF,Lino NC, Gildardo MARTELL, et al. Evaluation,treatment, and prevention of vitamin D deficiency; an Endocrine Society clinical practice guideline. JCEM. 2010; 96(7):1911-30. PERFORMED BY: [facility] [address] [phone] PATHOLOGIST DEPARTMENTAL BUYER JERRY CASTRO M.D. Performed By: #### F FN #### [facility] [address] Vitamin D+Metabolites [Mass/ volume] in Serum or PlasmaOrdered By: Page Magaña on 10-27-2022 Vitamin D+Metabolites [Mass/Vol] 22.1 ng/mL 30-100 [facility] Comment on above: VITAMIN D STATUS 25( [place])VITAMIN D RANGE (ng/mL) Deficient <20 Insufficient 20 to <30Sufficient 30 to 100Reference: Helen MF,Lino NC, Gildardo MARTELL, et al. Evaluation,treatment, and prevention of vitamin D deficiency; an Endocrine Society clinical practice guideline. JCEM. 2010; 96(7):1911-30. WBC Auto (Bld) [#/Vol]Ordere d By: Page Magaña on 10-27-2022 WBC (Bld) [#/Vol] 9.1 10*3/uL 3.8-11.6 [facility] Vital Signs Date Time Vital Sign Value Performing Clinician Facility 06-28-2023 05:30-0500 Body temperature 98.8 [degF] DO Sallie Aguila Archana Work Phone: [facility] 06-28-2023 05:30-0500 Diastolic blood pressure 79 mm[Hg] DO Sallie Aguila Archana Work Phone: [facility] 06-28-2023 05:30-0500 Heart rate 80 /min DO Sallie Aguila Archana Work Phone: [facility] 06-28-2023 05:30-0500 Respiratory rate 20 /min DO Sallie Magaña Work Phone: [facility] 06-28-2023 05:30-0500 SaO2% (BldA) [Mass fraction] 98 % DO Sallie Magaña Work Phone: [facility] 06-28-2023 05:30-0500 Systolic blood pressure 121 mm[Hg] DO Sallie Magaña Work Phone: [facility] 06-26-2023 20:49-0500 Body height 152.4 cm DO Sallie Magaña Work Phone: [facility] 06-26-2023 20:49-0500 Body weight 74.38 kg DO Sallie Magaña Work Phone: [facility] 01-24-2023 13:44-0400 Diastolic blood pressure 73 mm[Hg] DO Sallie Magaña Work Phone: [facility] 01-24-2023 13:44-0400 Heart rate 104 /min DO Sallie Magaña Work Phone: [facility] 01-24-2023 13:44-0400 Respiratory rate 16 /min DO Sallie Magaña Work Phone: [facility] 01-24-2023 13:44-0400 SaO2% (BldA) [Mass fraction] 98 % DO Sallie Magaña Work Phone: [facility] 01-24-2023 13:44-0400 Systolic blood pressure 117 mm[Hg] DO Sallie Magaña Work Phone: [facility] 01-24-2023 10:11-0400 Body height 152.4 cm DO Sallie Magaña Work Phone: [facility] 01-24-2023 10:11-0400 Body temperature 98.5 [degF] DO Sallie Magaña Work Phone: [facility] 01-24-2023 10:11-0400 Body weight 67.58 kg DO Sallie Magaña Work Phone: [facility] 11-08-2022 15:30-0400 Body height 147.96 cm Hilario Reynolds Other [email or web address] Other 11-08-2022 15:30-0400 Body mass index (BMI) [Ratio] 34.23 kg/m2 Hilario Reynolds Other [email or web address] Other 11-08-2022 15:30-0400 Body weight 74.93 kg Hilario Reynolds Other [email or web address] Other 11-08-2022 15:30-0400 Diastolic blood pressure 90 mm[Hg] Hilario Reynolds Other [email or web address] Other 11-08-2022 15:30-0400 Respiratory rate 18 /min Hilario Reynolds Other [email or web address] Other 11-08-2022 15:30-0400 SaO2% (BldA) [Mass fraction] 97 % Hilario Reynolds Other [email or web address] Other 11-08-2022 15:30-0400 Systolic blood pressure 135 mm[Hg] Hilario Reynolds Other [email or web address] Other Encounters Encounter Date Encounter Type Care Provider Facility Start: 01-02-2024 ambulatory Alfredo LANDIN Facility :[facility] Start: 07-04-2023 End: 07-04-2023 ambulatory EDGAR ERWIN Not Available Start: 06-29-2023 ambulatory Alfredo LANDIN Facility[facility] [place] Start: 06-26-2023 End: 06-28-2023 ambulatory Sallie Magaña Facility:[facility] Start: 06-26-2023 End: 06-28-2023 Evaluation and management of inpatient DO Sallie Magaña Work Phone: [facility] Work Phone: Start: 06-26-2023 End: 06-28-2023 observation encounter DO Sallie Magaña Work Phone: [facility] Work Phone: Start: 06-06-2023 End: 06-06-2023 ambulatory Sallie Magaña Facility:[facility] Start: 06-06-2023 End: 06-06-2023 Patient encounter procedure DO Sallie Owenslynettegeorgie Work Phone: [facility] [place] Work Phone: Start: 05-29-2023 End: 05-29-2023 ambulatory BRANDON CAMARGO Not Available Start: 05-06-2023 End: 05-06-2023 ambulatory PagePrabha Magaña Facility:[facility] Start: 05-06-2023 End: 05-06-2023 ambulatory DO PagePrabha Magaña Work Phone: [facility] Work Phone: Start: 05-06-2023 End: 05-06-2023 Patient encounter procedure DO Sallie Aguila Gracielamelany Work Phone: [facility] Work Phone: Start: 01-24-2023 End: 01-24-2023 Emergency department patient visit DO Sallie Owensmelany Work Phone: [facility]Emergency [facility] Work Phone: Start: 12-20-2022 End: 12-21-2022 ambulatory Hilario Reynolds Facility:[facility] Start: 12-20-2022 Registered Recurring DO Sallie Scooter pedersen Gracielamelany Work Phone: [facility] Work Phone: Start: 11-08-2022 End: 11-08-2022 ambulatory Hilario Reynolds Other [email or web address] Other Start: 11-08-2022 Nutrition therapy Hilario Reynolds [facility] Start: 10-27-2022 End: 10-27-2022 ambulatory Sallie Magaña Facility:[facility] Start: 10-27-2022 End: 10-27-2022 ambulatory DO Sallie Magaña Work Phone: [facility] Work Phone: Start: 10-27-2022 End: 10-27-2022 Patient encounter procedure DO Sallie Magaña Work Phone: [facility] Work Phone: Procedures Date Procedure Procedure Detail Performing Clinician Start: 06-26-2023 Ultrasonography of b ilateral kidneys DO Sallie Magaña Work Phone: Plan of Treatment Date Care Activity Detail Author Start: 06-28-2023 [facility] Start: 06-26-2023 Referral to urologist [facility] Start: 06-26-2023 Hospital admission [facility] Start: 01-24-2023 Diagnostic ultrasoun d of gravid uterus [facility] Start: 01-24-2023 Ultrasonography of b ilateral kidneys US renal BI [facility] Start: 01-24-2023 US Kidney - bilateral F [facility] Start: 01-24-2023 Transvaginal obstetr ic ultrasonography [facility] Cefuroxime free [Mas s/volume] in Serum or Plasma [facility] Patient Education [facility] Work Phone: Patient referral [facility] Work Phone: Rheumatoid factor [Units/volume] in Serum or Plasma [facility] Payers Date Payer Category Payer Self-pay [id number] 2022 Unknown [id number] 1990 Unknown [id number] 1990 Unknown [id number] 1259 Medicaid [employer]age [id number] Private Health Insurance [facility] [id number] Unknown [id number] Unknown [id number] 531 Unknown [id number] 531 Unknown [id number] 531 Unknown [id number] 531 Unknown [id number] 531 Unknown [id number] 531 Worker's Compensation [facility] [place] [id number] Social History Date Type Detail Facility Start: 05-01-2020 End: 06-27-2023 Tobacco smoking status NHIS Never smoked tobacco (finding) [facility] Start: 1990 Sex Assigned At Female F [facility] Sex Assigned At Sex Assigned At Bir th [facility] [employer] Other Goals Date Patient Goal Desired Activity /State Consult note 06-27-2023 Note Date & Type Note Facility 06-27-2023 Consult note Note Date/Time June 27, 2023 2:48pm [facility] [address] [place] [address] Urology Consult Note Signed Patient: Elyssa Smith MR#: [id number] : 1990 Acct:[id number] Age/Sex: 33 / F Adm Date: 3 Loc: 3E Room: 7K9047-8 Type: ADM INOo Attending Dr: Emerald Martinez [...] P documented by Dr. Martinez earlier today [facility] Medical History (Updated 06/27/23 @ 07:15 by [...] % (Auto) 87.1, Lymph % (Auto) 8.3, [place] % (Auto) 4.2, Eos % (Auto)0.2, Baso % (Auto) 0.2, Nucleat RBC Rel Count 0.1, Neut # (Auto) 11.9 H, Lymph #(Auto) 1.1, [place] # (Auto) 0.6, Eos # (Auto) 0.0, Baso # (Auto) 0.0 06/26/23 20:07: Fibronectin Negative 06/26/23 19:20: Urine Opiates Screen Negative, Ur Barbiturates Screen Negative, Ur Phencyclidine Scrn Negative, Ur Amphetamines Screen Negative, U Benzodiazepines Scrn Negative, Urine Cocaine Screen Negative 06/26/23 19:20: Urine Color Yellow, Urine Appearance Clear, Urine pH 6.5, Ur Specific Sully 1.009, Urine Protein Trace H, Urine Glucose [...] a as needed basis. Documented By: Alfredo Landin MD 06/27/23 [id number] Signed By: <Electronically signed by MD Alfredo Landin> 06/27/23 1454 [facility] Work Phone: History and physical note 06-27-2023 Note Date & Type Note Facility 06-27-2023 History and physi pradip note Note Date/Time June 27, 2023 7:10am [facility] [address] [place] [address] [employer] History & Physical Signed Patient: Elyssa Smith MR#: [id number] : 1990 Acct:[id number] Age/Sex: 33 / F Adm Date: 3 Loc: Room: [address] [place] [address] Type: REG CLI Attending Dr: Emerald Martinez DO Copies to: Page Magaña Jr, DO Emerald Martinez DO~ Date of Service: 06/27/2023 HPI History of Present Illness Chief complaint: Right flank pain HPI: 33 year old at 26 2/7 weeks presented last evening with worsening rightflank pain. Patient does have history of kidney stones and did have one in January of this year that she passed on her own. Currently, patient's pain is controlledwith IV pain meds. OB [facility] Medical History (Updated 06/27/23 @ 07:15 by [...] % (Auto) 87.1, Lymph % (Auto) 8.3, [place] % (Auto) 4.2, Eos % (Auto)0.2, Baso % (Auto) 0.2, Nucleat RBC Rel Count 0.1, Neut # (Auto) 11.9 H, Lymph #(Auto) 1.1, [place] # (Auto) 0.6, Eos # (Auto) 0.0, Baso # (Auto) 0.0 06/26/23 20:07: Fibronectin Negative 06/26/23 19:20: Urine Opiates Screen Negative, Ur Barbiturates Screen Negative, Ur Phencyclidine Scrn Negative, Ur Amphetamines Screen Negative, U Benzodiazepines Scrn Negative, Urine Cocaine Screen Negative 06/26/23 19:20: Urine Color Yellow, Urine Appearance Clear, Urine pH 6.5, Ur Specific Sully 1.009, Urine Protein Trace H, Urine Glucose [...] currently. She does see Dr. Erwin in [place] for her care (2) Right kidney stone: Plan: Urology has been consulted- awaiting recommendations (3) Hydronephrosis, right: Plan: Urology has been consulted-awaiting recommendations Documented By: Emerald Martinez DO 06/27/23 07 06 Signed By: <Electronically signed by Emerald Martinez, > 06/27/23 6816 [facility] Work Phone: Evaluation note 11-08-2022 Note Date & Type Note Facility 11-08-2022 Evaluation note Encounter Date Diagnosis Assessment Notes November, Abnormal weight gain (ICD-10 - R63.5) November, Mixed hyperlipidemia (ICD-10 - E78.2) November, Anxiety (ICD-10 - F41.9) November, Asthma (ICD-10 - J45.909) November, Kidney stones (ICD-10 - N20.0) [email or web address] Other Evaluation note Note Date & Type Note Facility Evaluation note No assessment information availa ble [facility] Work Phone: Evaluation note Note Date & Type Note Facility Evaluation note Diagnosis Onset Date 26 weeks gestation of acute Hydronephrosis, right acute Right kidney stone acute [facility] Work Phone: History general Narrative - Reported Note Date & Type Note Facility History general Narrative - Reported Type Medical History asthma Surgical History C section x 2 Surgical History kidney stones Surgical History IUD removed Hospitalization History see surgical hx [email or web address] Other Hospital Discharge instructions Note Date & Type Note Facility Hospital Discharge instructions Additional Instructions Follow-up with your primary care doctor and OB-SUPERVISOR [facility]ER Return to ED if you develop worsening symptoms or concerns [facility] Work Phone: Hospital Discharge instructions Note Date & Type Note Facility Hospital Discharge instructions Additional Instructions Follow up with Dr. Erwin [facility] Work Phone: Progress note Note Date & Type Note Facility Progress note Note Date/Time June 28, 2023 7:43am [facility] [address] [place] [address] [facility] Progress Note Signed Patient: Elyssa Smith MR#: [id number] : 1990 Acct:[id number] Age/Sex: 33 / F Adm Date: 3 Loc: Room: [address] [place] [address] Type: ADM INOo Attending Dr: Emerald Martinez [...] 06/28/23 0732 Signed By: <Electronically signed by MD DANIEL Hughes> 06/28/23 0751 <Electronically signed by MD KIKI BEAL> 06/28/23 0804 [facility] Work Phone: Chief Complaint and Reason for [...] Recorded Date/ Time Advance Directives No September 21, 9:37pm Advance Directive Response Recorded Date/ Time Advance Directives No September 21, 8:37pm Summary Purpose Family History No Family History Records Found Additional Source Comments Care Teams (unrecognized sec tion and content) Team Status: Active Member Role Status Dates Sallie Magaña DO Primary Care Provider Active Team Status: Inactive Member Role Status Dates Sallie Magaña DO Primary Care Provider, Attending Provider Active Team Status: Active Member Role Status Dates Sallie Magaña DO Primary Care Provider Active Hilario Reynolds MD Attending Provider Active Team Status: Inactive Member Role Status Dates Sallie Magaña DO Primary Care Provider Active Sarmad Luque , DO Emergency Provider Active Donovan Brooks MD RES Active Team Status: Inactive Member Role Status Dates Sallie Magaña DO Primary Care Provider Active Latrice Sepulveda MD Attending Provider Active Team Status: Inactive Member Role Status Dates Sallie Magaña DO Primary Care Provider Active Emerald Martinez , Admit Provider, Attending Provide r Active Goals (unrecognized section and content) Goals may be documented in a n alternate sectionNo InformationGoals may be documented in an alternate sectionGoals may be documented in an alternate sectionGoals may be documented in an alternate section REASON FOR VISIT (unrecogniz ed section and content) Initial [facility] INFORMATION SOURCE (unrecogn ized section and content) DATE CREATED AUTHOR 06/30/2023 [facility] DATE CREATED AUTHOR AUTHOR'S ORGANIZ ATION 07/06/2023 [facility] DATE CREATED AUTHOR AUTHOR'S ORGANIZ ATION 07/07/2023 [facility] FOR RECORDS PERTAINING TO PATIENTS WHO ARE [...] BE BASED ON THE PRIMARY CLINICAL RECORDS. [facility]. provides no warranty or guarantee of the accuracy or completeness of information in this document.
[2023-07-12 10:06] LABS: Basophils Percent Auto 0.3 % (0.2-2.0); Eosinophils Absolute Auto 0.1 10^3/uL (0.0-0.7); Eosinophils Percent Auto 1.1 % (0.9-7.0); Hemoglobin 11.1 g/dL (12.0-16.0); Immature Granulocytes Abs Auto 0.11 10^3/uL (0.00-0.03); Immature Granulocytes Pct Auto 1.1 % (0.0-0.5); Lymphocytes Absolute Auto 1.5 10^3/uL (1.2-3.8); Lymphocytes Percent Auto 14.4 % (20.5-60.0); Mean Corpuscular HGB Conc 31.7 g/dL (29.9-35.2); Mean Corpuscular Hemoglobin 28.6 pg (26.7-34.0); Mean Corpuscular Volume 90.2 fL (81.0-99.0); Mean Platelet Volume 11.4 fL (9.5-13.5); Monocytes Absolute Auto 0.6 10^3/uL (0.3-0.8); Monocytes Percent Auto 5.5 % (1.7-12.0); Neutrophils Absolute Auto 8.1 10^3/uL (1.4-6.5); Neutrophils Percent Auto 77.6 % (43.0-75.0); Platelet Count 205 10^3/uL (150-450); Red Blood Count 3.88 10^6/uL (4.20-5.40); White Blood Count 10.4 10^3/uL (4.0-11.0)
[2023-07-12 10:38] LABS: Glucose 1 Hour 162 mg/dL
== END 2023-07-12 08:54 | disposition home or self-care (01) ==
LOC: LAB 08:53
PROVIDERS: Visit Provider Obstetrics & Gynecology
DX: Z13.1 Encounter for screening for diabetes mellitus (principal)
CPT/HCPCS: 36415; 82950; 85025

== ENCOUNTER 2023-07-14 07:55 | Outpatient (OUT) | payer OTHER, SELFPAY ==
--- OUTSIDE RECORDS SUMMARY | 2023-07-14 07:59 | XMS_ITS | CCD ---
Author Name Unknown Address [address] [facility] [address] [place] [address] Organization [facility] Care Team Providers Care Upscale Security Officer Name Role Phone DO Sallie Magaña Primary Care Provider DO Sallie Magaña Attending Provider Hilario Reynolds Unavailable DO Sallie Magaña Primary Care Provider MD Hilario Reynolds Attending Provider DO Sarmad Luque Emergency Provider [phone] DO Sallie Magaña Primary Care Provider DO Sallie Magaña Attending Provider DO Sallie Magaña Primary Care Provider DO Sallie Magaña Attending Provider MD Latrice Sepulveda Attending Provider DO Emerald Martinez Admit Provider DO Emerald Martinez Attending Provider BRANDON CAMARGO Attending Unavailable EDGAR ERWIN Attending [...] Luque Admitting Unavailable Sarmad Luque Attending Unavailable Alfredo LANDIN Attending Unavailable Alfredo LANDIN Referring Unavailable Alfredo LANDIN Attending Unavailable Allergies Allergy Classification Reported Allergen(s) Allergy Type Date of Onset Reaction(s) Facility (7 sources) Dicyclomine; Translations: [dicyclomine] Drug Allergy 0 Migraine, Unknown [facility] (6 sources) Fish Oils; Translations: [fish oil] Drug Allergy 0 Hives [facility] (6 sources) Gluten; Translations: [gluten] Propensity to adverse reactions 0 Nausea [facility] (1 source) DHA Propensity to adverse reactions Unknown [facility] Other Medications Current Medications Medication Drug Class(es) [...] Correspondence Off iceon 06-30-2023 Insurance Correspondence Office [id number]# 1.00TIFF Normal [facility] Lab Reportson 06-30-2023 Lab Reports [id number] 1.00TIFF Normal [facility] RAD - Ultrasound Reporton RAD - Ultrasound Report [id number]#1 .00TIFF Normal [facility] Lab Reportson 06-29-2023 Lab Reports [id number]#1 .00TIFF Normal [facility] Consultation Noteon 06-28-20 Consultation Note [id number]#1 .00TIFF Normal [facility] Complete Blood Count Auto Di ffon 06-27-2023 Basophils (Bld) [#/Vol] 0.0 10*3/uL Normal 0.0-0.2 [facility] Comment on above: Result Comment: PERF ORMED BY: [facility] [address] [facility] [place] [address] PATHOLOGIST [employer] JERRY CASTRO M.D. Performed By: #### C BC, CMP ####[facility] Basophils/100 WBC (Bld) 0.2 % Normal . [facility] Comment on above: Performed By: #### C BC, CMP ####[facility] [id number] [place] [id number] [facility] Eosinophils (Bld) [#/Vol] 0.0 10*3/uL Normal 0.0-0.45 [facility] Comment on above: Performed By: #### C BC, CMP ####[place] [address] Eosinophils/100 WBC (Bld) 0.2 % Normal . [facility] Comment on above: Performed By: #### C SAPPHIRE, CMP ####[address] Erythrocyte distribution width (RBC) [Ratio] 13.4 % Normal 11.9-15.3 [facility] Comment on above: Performed By: #### C BC, CMP ####[address] Hematocrit (Bld) [Volume fraction] 33.5 % Low 34.0-46.4 [facility] Comment on above: Performed By: #### C SAPPHIRE, CMP ####[address] Hemoglobin (Bld) [Mass/Vol] 11.3 g/dL Low 11.8-15.4 [facility] Comment on above: Performed By: #### C SAPPHIRE, CMP ####[address] Lymphocytes (Bld) [#/Vol] 1.1 10*3/uL Normal 1.00-4.8 [facility] Comment on above: Performed By: #### C SAPPHIRE, CMP ####[address] Lymphocytes/100 WBC (Bld) 8.3 % Normal . [facility] Comment on above: Performed By: #### C SAPPHIRE, CMP ####[address] MCH (RBC) [Entitic mass] 29.0 pg Normal 24.7-34.3 [facility] Comment on above: Performed By: #### C BC, CMP ####[address] MCV (RBC) [Entitic vol] 86.2 fL Normal 80-100 [facility] Comment on above: Performed By: #### C BC, CMP ####[place] [address] [facility] Mean Corpuscular HGB Conc 33.7 g/dL Normal 32.0-35.0 [facility] Comment on above: Performed By: #### C BC, CMP ####[place] [id number] [facility] Monocytes (Bld) [#/Vol] 0.6 10*3/uL Normal 0.0-0.8 [facility] Comment on above: Performed By: #### C BC, CMP ####[place] [id number] [facility] Monocytes/100 WBC (Bld) 4.2 % Normal . [facility] Comment on above: Performed By: #### C BC, CMP ####[address] Neutrophils (Bld) [#/Vol] 11.9 10*3/uL High 1.8-7.7 [facility] Comment on above: Performed By: #### C BC, CMP ####[place] [id number] [facility] Neutrophils/100 WBC (Bld) 87.1 % Normal . [facility] Comment on above: Performed By: #### C SAPPHIRE, CMP ####[place] [address] [facility] NRBC% 0.1 /100{WBC} Normal 0-0.5 [facility] Comment on above: Performed By: #### C BC, CMP ####[place] [id number] [facility] Platelet mean volume (Bld) [Entitic vol] 9.8 fL Normal 6.3-10.7 [facility] Comment on above: Performed By: #### C BC, CMP ####[place] [id number] [facility] Platelets (Bld) [#/Vol] 174 10*3/uL Normal 150-450 [facility] Comment on above: Performed By: #### C BC, CMP ####[place] [id number] [facility] RBC (Bld) [#/Vol] 3.89 10*6/uL Normal 3.60-5.00 [facility] Comment on above: Performed By: #### C BC, CMP ####[place] [address] [place] [address] [facility] WBC (Bld) [#/Vol] 13.6 10*3/uL High 3.8-11.6 [facility] Comment on above: Performed By: #### C BC, CMP ####[place] [address] [place] [address] [facility] Comprehensive Metabolic Pane mauricio 06-27-2023 Albumin [Mass/Vol] 3.4 g/dL Low 3.5-5.7 [facility] Comment on above: Performed By: #### C BC, CMP ####[place] [address] [place] [address] [facility] Albumin/Globulin [Mass ratio] 1.6 {ratio} Normal [facility] Comment on above: Performed By: #### C BC, CMP ####[place] [address] [place] [address] [facility] ALP [Catalytic activity/Vol] 88 U/L Normal 34-104 [facility] Comment on above: Performed By: #### C BC, CMP ####[facility] [place] [address] [facility] ALT [Catalytic activity/Vol] 17 U/L Normal 7-52 [facility] Comment on above: Performed By: #### C BC, CMP ####[address] [address] [facility] Anion gap [Moles/Vol] 12.5 mmol/L Normal 6.0-15.0 [facility] Comment on above: Performed By: #### C BC, CMP ####[place] [address] [place] [address] [facility] AST [Catalytic activity/Vol] 14 U/L Normal 13-39 [facility] Comment on above: Performed By: #### C BC, CMP ####[address] [place] [address] [facility] Bilirubin [Mass/Vol] 0.3 mg/dL Normal 0.3-1.0 [facility] Comment on above: Performed By: #### C BC, CMP ####[place] [address] [place] [id number] [facility] Calcium [Mass/Vol] 8.2 mg/dL Low 8.6-10.3 [facility] Comment on above: Performed By: #### C BC, CMP ####[place] [id number] [facility] Chloride [Moles/Vol] 105 mmol/L Normal 98-107 [facility] Comment on above: Performed By: #### C BC, CMP ####[place] [address] [place] [id number] [facility] CO2 [Moles/Vol] 23.8 mmol/L Normal 21.0-31.0 [facility] Comment on above: Performed By: #### C BC, CMP ####[place] [id number] [facility] Creatinine [Mass/Vol] 0.52 mg/dL Low 0.60-1.20 [facility] Comment on above: Performed By: #### C BC, CMP ####[place] [id number] [facility] Creatinine Clr Calc Pharmacy 138.60 [facility] Comment on above: Result Comment: PERF ORMED BY: [facility] [address] [place] [id number] PATHOLOGIST WAGE HAND JERRY CASTRO M.D. Performed By: #### C BC, CMP ####[place] [id number] [facility] GFR/1.73 sq M.predicted MDRD (S/P/Bld) [Vol rate/Area] mL/min/{1.73_m2} [facility] Comment on above: Performed By: #### C BC, CMP ####[place] [id number] [facility] Globulin (S) [Mass/Vol] 2.1 g/dL Normal [facility] Comment on above: Performed By: #### C BC, CMP ####[place] [address] [place] [id number] [facility] Glucose [Mass/Vol] 124 mg/dL High 70-100 [facility] Comment on above: Result Comment: [place] Glucose Reference Range is dependent on time and content of last meal. Glucose of more than 200 mg/dL in a nonstressed, ambulatory subject supports the diagnosis of Diabetes Mellitus. ADA recommended reference range Performed By: #### C BC, CMP ####[place] [address] [place] [address] [facility] Potassium [Moles/Vol] 3.3 mmol/L Low 3.5-5.1 [facility] Comment on above: Performed By: #### C BC, CMP ####[place] [address] [place] [id number] [facility] Protein [Mass/Vol] 5.5 g/dL Low 6.4-8.9 [facility] Comment on above: Performed By: #### C BC, CMP ####[place] [id number] [facility] Sodium [Moles/Vol] 138 mmol/L Normal 136-145 [facility] Comment on above: Performed By: #### C BC, CMP ####[place] [id number] [facility] Urea nitrogen [Mass/Vol] 6 mg/dL Low 7-25 [facility] Comment on above: Performed By: #### C BC, CMP ####[place] [address] [place] [address] [facility] US renal BIon 06-27-2023 US renal BI [facility] [address] [place] [address] [place] [address] Ultrasound Report Signed Patient: Elyssa Smith MR#: [id number] : 1990 Acct:[id number] Age/Sex: 33 / F ADM Date: 06/27/23 Loc: Room: 6E5099-3 Type: ADM INOo Attending Dr: Emerald Martinez [...] Kathleen Vaca M.D.06/27/2023 7:44 AM Dictation Location: [place] [address] Tech: Eryn Blaise Transcribed By: SILVINA 06/27/23 0744 Dictated By: Kathleen Vaca MD 06/27/23 0742 Signed By: 06/27/23 0744 Normal [facility] Alanine aminotransferase [En zymatic activity/volume] in Serum or PlasmaOrdered By: Emerald Martinez on 06-26-2023 ALT [Catalytic activity/Vol] 17 U/L 7-52 [facility] Albumin [Mass/volume] in Ser um or Plasma by Bromocresol green (BCG) dye binding methoOrdered By: Emerald Martinez on 06-26-2023 Albumin BCG dye [Mass/Vol] 3.4 g/dL 3.5-5.7 [facility] Alkaline phosphatase [Enzyma tic activity/volume] in Serum or PlasmaOrdered By: Emerald Martinez on 06-26-2023 ALP [Catalytic activity/Vol] 88 U/L 34-104 [facility] Amphetamine Screen Ql (U)Ord ered By: Emerald Martinez on 06-26-2023 Amphetamines Ql (U) Negative Negative [facility] Aspartate aminotransferase [ Enzymatic activity/volume] in Serum or PlasmaOrdered By: Emerald Martinez on 06-26-2023 AST [Catalytic activity/Vol] 14 U/L 13-39 [facility] Automated epithelial cells c ount in urine sediment (number/area)Ordered By: Emerald Martinez on 06-26-2023 Epithelial cells Auto (Urine sed) [#/Area] 10-19 [HPF] 0-2 [facility] Automated erythrocytes count in urine sediment (number/area)Ordered By: Emerald Martinez on 06-26-2023 RBC Auto (Urine sed) [#/Area] 10-19 [HPF] 0-4 [facility] Automated leukocytes count i n urine sediment (number/area)Ordered By: Emerald Martinez on 06-26-2023 WBC Auto (Urine sed) [#/Area] 0-1 [HPF] 0-4 [facility] Automated urine hyaline cast s count (number/volume)Ordered By: Emerald Matrinez on 06-26-2023 Hyaline casts Auto (U) [#/Vol] None seen [LPF] 0-1 [facility] Barbiturates [Presence] in U rine by Screen methodOrdered By: Emerald Martinez on 06-26-2023 Barbiturates Screen Ql (U) Negative Negative [facility] Basophils Auto (Bld) [#/Vol] Ordered By: Emerald Martinez on 06-26-2023 Basophils (Bld) [#/Vol] 0.0 10*3/uL 0.0-0.2 [facility] Basophils/100 WBC Auto (Bld) Ordered By: Emerald Martinez on 06-26-2023 Basophils/100 WBC (Bld) 0.2 % . [facility] Benzodiazepines Screen Ql (U )Ordered By: Emerald Martinez on 06-26-2023 Benzodiazepines Ql (U) Negative Negative [facility] Benzoylecgonine [Presence] i n Urine by Screen methodOrdered By: Emerald Martinez on 06-26-2023 Benzoylecgonine Screen Ql (U) Negative Negative [facility] Bilirubin Test strip Ql (U)O rdered By: Emerald Martinez on 06-26-2023 Bilirubin Ql (U) Negative Negative [facility] Bilirubin.total [Mass/volume ] in Serum or PlasmaOrdered By: Emerald Martinez on 06-26-2023 Bilirubin [Mass/Vol] 0.3 mg/dL 0.3-1.0 [facility] Calcium [Mass/volume] in Ser um or PlasmaOrdered By: Emerald Martinez on 06-26-2023 Calcium [Mass/Vol] 8.2 mg/dL 8.6-10.3 [facility] Carbon dioxide, total [Moles /volume] in Serum or PlasmaOrdered By: Emerald Martinez on 06-26-2023 CO2 [Moles/Vol] 23.8 mmol/L 21.0-31.0 [facility] Chloride [Moles/volume] in S gris or PlasmaOrdered By: Emerald Martinez on 06-26-2023 Chloride [Moles/Vol] 105 mmol/L 98-107 [facility] Color Auto (U)Ordered By: Graciela Martinez on 06-26-2023 Color (U) Yellow Yellow [facility] Creatinine [Mass/volume] in Serum or PlasmaOrdered By: Emerald Martinez on 06-26-2023 Creatinine [Mass/Vol] 0.52 mg/dL 0.60-1.20 [facility] Dipstick and Microscopicon 1 08-27-2022 Appearance (U) Clear Normal Clear [facility] Comment on above: Order Comment: Name Collection Type:: Voided Performed By: #### O BUDS, ADDONUAPLUS #### [facility] [address] [place] [address] [place] Bacteria,Urine Rare High None Seen [facility] Comment on above: Order Comment: Name Collection Type:: Voided Performed By: #### O BUDS, ADDONUAPLUS #### [facility] [address] [place] [address] [place] Bilirubin,Urine Negative Normal Negative [facility] Comment on above: Order Comment: Name Collection Type:: Voided Performed By: #### O BUDS, ADDONUAPLUS #### [facility] [address] [place] [id number] [place] Color (U) Yellow Normal Yellow [facility] Comment on above: Order Comment: Name Collection Type:: Voided Performed By: #### O BUDS, ADDONUAPLUS #### [address] Glucose Ql (U) Normal Normal Normal [facility] Comment on above: Order Comment: Name Collection Type:: Voided Performed By: #### O BUDS, ADDONUAPLUS #### [address] Hyaline Casts,Urine None Seen Normal 0-1 [facility] Comment on above: Order Comment: Name Collection Type:: Voided Performed By: #### O BUDS, ADDONUAPLUS #### [address] Ketones Ql (U) Negative Normal Negative [facility] Comment on above: Order Comment: Name Collection Type:: Voided Performed By: #### O BUDS, ADDONUAPLUS #### [address] Leukocyte esterase Test strip Ql (U) Negative Normal Negative [facility] Comment on above: Order Comment: Name Collection Type:: Voided Performed By: #### O BUDS, ADDONUAPLUS #### [address] Nitrite,Urine Negative Normal Negative [facility] Comment on above: Order Comment: Name Collection Type:: Voided Performed By: #### O BUDS, ADDONUAPLUS #### [address] Occult Blood,Urine 3+ High Negative [facility] Comment on above: Order Comment: Name Collection Type:: Voided Result Comment: PERF ORMED BY: [place] [address] PATHOLOGIST WAGE HAND JERRY CASTRO M.D. Performed By: #### O BUDS, ADDONUAPLUS #### [address] pH (U) 6.5 [pH] Normal 5.0-9.0 [facility] Comment on above: Order Comment: Name Collection Type:: Voided Performed By: #### O BUDS, ADDONUAPLUS #### [address] Protein,Urine Trace High Negative [facility] Comment on above: Order Comment: Name Collection Type:: Voided Performed By: #### O BUDS, ADDONUAPLUS #### [place] [address] [place] RBC,Urine 10-19 High 0-4 [facility] Comment on above: Order Comment: Name Collection Type:: Voided Performed By: #### O BUDS, ADDONUAPLUS #### [address] Specificy [place],Urine 1.009 Normal 1.001-1.030 [facility] Comment on above: Order Comment: Name Collection Type:: Voided Performed By: #### O BUDS, ADDONUAPLUS #### [address] Squamous Epithelial Cell,Urine 10-19 High 0-2 [facility] Comment on above: Order Comment: Name Collection Type:: Voided Performed By: #### O BUDS, ADDONUAPLUS #### [address] Urobilinogen,Urine Normal Normal Normal [facility] Comment on above: Order Comment: Name Collection Type:: Voided Performed By: #### O BUDS, ADDONUAPLUS #### [address] WBC LM.HPF (Urine sed) [#/Area] 0 /[HPF] Normal 0-4 [facility] Comment on above: Order Comment: Name Collection Type:: Voided Performed By: #### O BUDS, ADDONUAPLUS #### [address] Yeast,Urine Rare Critically abnormal None Seen [facility] Comment on above: Order Comment: Name Collection Type:: Voided Result Comment: PERF ORMED BY: [place] [address] PATHOLOGIST [employer]AGE HAND JERRY CASTRO M.D. Performed By: #### O BUDS, ADDONUAPLUS #### [address] Eosinophils Auto (Bld) [#/Vo l]Ordered By: Emerlad Martinez on 06-26-2023 Eosinophils (Bld) [#/Vol] 0.0 10*3/uL 0.0-0.45 [facility] Eosinophils/100 WBC Auto (Bl d)Ordered By: Emerald Martinez on 06-26-2023 Eosinophils/100 WBC (Bld) 0.2 % . [facility] Erythrocyte distribution wid th Auto (RBC) [Ratio]Ordered By: Emerald Martinez on 06-26-2023 Erythrocyte distribution width (RBC) [Ratio] 13.4 % 11.9-15.3 [facility] Fibronectinon 06-26-20 23 Fibronectin Negative Normal Negative [facility] Comment on above: Order Comment: Comme nt patients 22 - 34 6/7 weeks prior to vaginal exam Result Comment: PERF ORMED BY: [place] [address] PATHOLOGIST WAGE HAND JERRY CASTRO M.D. Performed By: #### F FN #### [address] fibronectinOrdered By: Emerald Martienz on 06-26-2023 Fibronectin. (Vag fld) [Mass/Vol] Negative Negative [facility] Globulin Calc (S) [Mass/Vol] Ordered By: Emerald Martinez on 06-26-2023 Globulin (S) [Mass/Vol] 2.1 g/dL [facility] Glucose [Mass/volume] in Ser um or PlasmaOrdered By: Emerald Martinez on 06-26-2023 Glucose [Mass/Vol] 124 mg/dL 70-100 [facility] Comment on above: ADA recommended refe rence rangeRandom Glucose Reference Range is dependent on time and content of last meal. Glucose of more than 200 mg/dL in a nonstressed, ambulatory subject supports the diagnosis of Diabetes Mellitus. Hematocrit Auto (Bld) [Volum e fraction]Ordered By: Emerald Martinez on 06-26-2023 Hematocrit (Bld) [Volume fraction] 33.5 % 34.0-46.4 [facility] Hemoglobin [Mass/volume] in BloodOrdered By: Emerald Martinez on 06-26-2023 Hemoglobin (Bld) [Mass/Vol] 11.3 g/dL 11.8-15.4 [facility] Ketones Auto test strip (U) [Mass/Vol]Ordered By: Emerald Martinez on 06-26-2023 Ketones (U) [Mass/Vol] Negative Negative Fi [facility] Leukocytes [#/volume] correc mague for nucleated erythrocytes in Blood by Automated counOrdered By: Emerald Martinez on 06-26-2023 WBC corrected for nucl RBC Auto (Bld) [#/Vol] 13.6 10*3/uL 3.8-11.6 [facility] Lymphocytes Auto (Bld) [#/Vo l]Ordered By: Emerald Martinez on 06-26-2023 Lymphocytes (Bld) [#/Vol] 1.1 10*3/uL 1.00-4.8 [facility] Lymphocytes/100 WBC Auto (Bl d)Ordered By: Emerald Martinez on 06-26-2023 Lymphocytes/100 WBC (Bld) 8.3 % . [facility] MCH Auto (RBC) [Entitic mass ]Ordered By: Emerald Martinez on 06-26-2023 MCH (RBC) [Entitic mass] 29.0 pg 24.7-34.3 [facility] MCHC Auto (RBC) [Mass/Vol]Or dered By: Emerald Martinez on 06-26-2023 MCHC (RBC) [Mass/Vol] 33.7 g/dL 32.0-35.0 [facility] MCV Auto (RBC) [Entitic vol] Ordered By: Emreald Martinez on 06-26-2023 MCV (RBC) [Entitic vol] 86.2 fL 80-100 [facility] Monocytes Auto (Bld) [#/Vol] Ordered By: Emerald Martinez on 06-26-2023 Monocytes (Bld) [#/Vol] 0.6 10*3/uL 0.0-0.8 [facility] Monocytes/100 WBC Auto (Bld) Ordered By: Emerald Martinez on 06-26-2023 Monocytes/100 WBC (Bld) 4.2 % . [facility] Neutrophils Auto (Bld) [#/Vo l]Ordered By: Emerald Martinez on 06-26-2023 Neutrophils (Bld) [#/Vol] 11.9 10*3/uL 1.8-7.7 [facility] Neutrophils/100 WBC Auto (Bl d)Ordered By: Emerald Martinez on 06-26-2023 Neutrophils/100 WBC (Bld) 87.1 % . [facility] Nitrite Test strip Ql (U)Ord ered By: Emerald Martinez on 06-26-2023 Nitrite Ql (U) Negative Negative [facility] No Panel InformationOrdered By: Eemrald Martinez on 06-26-2023 Estimated GFR (CKD-EPI) > 60.0 mL/Min [facility] Creatinine Clearance (Chem 138.60 [facility] Nucleated erythrocytes [Pres ence] in Blood by Automated countOrdered By: Emerald Martinez on 06-26-2023 Nucleated RBC Auto Ql (Bld) 0.1 /100{WBC} 0-0.5 [facility] OB Urine Drug Screen (NO THC )on 06-26-2023 Amphetamine Screen,Urine Negative Normal Negative [facility] Comment on above: Performed By: #### O BUDS, ADDONUAPLUS #### [facility] [address] [place] [address] [place] Barbiturate Screen,Urine Negative Normal Negative [facility] Comment on above: Performed By: #### O BUDS, ADDONUAPLUS #### [facility] [address] [place] [address] [place] Benzodiazepines Screen,Urine Negative Normal Negative [facility] Comment on above: Performed By: #### O BUDS, ADDONUAPLUS #### [facility] [address] [place] [address] [place] Cocaine Screen,Urine Negative Normal Negative [facility] Comment on above: Performed By: #### O BUDS, ADDONUAPLUS #### [facility] [address] [place] [address] [place] Opiate Screen,Urine Negative Normal Negative [facility] Comment on above: Performed By: #### O BUDS, ADDONUAPLUS #### [facility] [address] Phencyclidine Screen, Urine Negative Normal Negative [facility] Comment on above: Result Comment: Thes e are unconfirmed results and should not be used for legal purposes. Drug Cut-Off Concentration: AMPH 1000 ng/mL DORIS 200 ng/mL LEANNE 200 ng/mL COCM 300 ng/mL OP 300 ng/mL PCP 25 ng/mL PERFORMED BY: [place] [address] PATHOLOGIST [employer]AGE [employer] JERRY CASTRO M.D. Performed By: #### O TOSIN, ADDONUAPLUS #### [facility] [address] [place] [address] Opiates [Presence] in Urine by Screen methodOrdered By: Emerald Martinez on 06-26-2023 Opiates Screen Ql (U) Negative Negative [facility] Phencyclidine Screen Ql (U)O rdered By: Emerald Martinez on 06-26-2023 Phencyclidine Ql (U) Negative Negative [facility] Comment on above: These are unconfirme d results and should not be used for legal purposes. Drug Cut-Off Concentration: AMPH 1000 ng/mL DORIS 200 ng/mL LEANNE 200 ng/mL COCM 300 ng/mL OP 300 ng/mL PCP 25 ng/mL Platelet mean volume Auto (B ld) [Entitic vol]Ordered By: Emerald Martinez on 06-26-2023 Platelet mean volume (Bld) [Entitic vol] 9.8 fL 6.3-10.7 [facility] Platelets Auto (Bld) [#/Vol] Ordered By: Emerald Martinez on 06-26-2023 Platelets (Bld) [#/Vol] 174 10*3/uL 150-450 [facility] Potassium [Moles/volume] in Serum or PlasmaOrdered By: Emerald Martinez on 06-26-2023 Potassium [Moles/Vol] 3.3 mmol/L 3.5-5.1 [facility] Protein Auto test strip (U) [Mass/Vol]Ordered By: Emerald Martinez on 06-26-2023 Protein (U) [Mass/Vol] Trace mg/dL Negative [facility] Protein [Mass/volume] in Ser um or PlasmaOrdered By: Emerald Martinez on 06-26-2023 Protein [Mass/Vol] 5.5 g/dL 6.4-8.9 [facility] RBC Auto (Bld) [#/Vol]Ordere d By: Emerald Martinez on 06-26-2023 RBC (Bld) [#/Vol] 3.89 10*6/uL 3.60-5.00 [facility] Serum or plasma albumin/glob ulin mass ratioOrdered By: Emerald Martinez on 06-26-2023 Albumin/Globulin [Mass ratio] 1.6 {ratio} [facility] Serum or plasma anion gap de terminationOrdered By: Emerald Martinez on 06-26-2023 Anion gap [Moles/Vol] 12.5 mmol/L 6.0-15.0 [facility] Sodium [Moles/volume] in Ser um or PlasmaOrdered By: Emerald Martinez on 06-26-2023 Sodium [Moles/Vol] 138 mmol/L 136-145 [facility] Specific gravity Auto test s trip (U) [Rel density]Ordered By: Emerald Martinez on 06-26-2023 Specific gravity (U) [Rel density] 1.009 1.001-1.030 [facility] Urea nitrogen [Mass/volume] in Serum or PlasmaOrdered By: Emerald Martinez 06-26-2023 Urea nitrogen [Mass/Vol] 6 mg/dL 7-25 [facility] Urine bacteria detection by automated methodOrdered By: Emerald Martinez 06-26-2023 Bacteria Auto Ql (U) Rare None Seen [facility] Urine clarity by refractomet ry automatedOrdered By: Emerald Martinez on 06-26-2023 Clarity Refractometry automated (U) Clear Clear [facility] Urine glucose measurement by automated test strip (mass/volume)Ordered By: Emeraldseven Martinez on 06-26-2023 Glucose Auto test strip (U) [Mass/Vol] Normal mg/dL Normal [facility] Urine hemoglobin detection b y automated test stripOrdered By: Emeraldseven Martinez on 06-26-2023 Hemoglobin Auto test strip Ql (U) 3+ Negative [facility] Urine leukocyte esterase det ection by automated test stripOrdered By: Emeraldseven Martinez on 06-26-2023 Leukocyte esterase Auto test strip Ql (U) Negative Negative [facility] Urobilinogen Auto test strip (U) [Mass/Vol]Ordered By: Emeraldseven Martinez on 06-26-2023 Urobilinogen (U) [Mass/Vol] Normal mg/dL Normal [facility] WBC Auto (Bld) [#/Vol]Ordere d By: Emerald Martinez on 06-26-2023 WBC (Bld) [#/Vol] 13.6 10*3/uL 3.8-11.6 [facility] Yeast detection in urine sed iment by light microscopyOrdered By: Emerald Martinez on 06-26-2023 Yeast LM Ql (Urine sed) Rare [HPF] None Seen [facility] pH Auto test strip (U)Ordere d By: Emerald Martinez on 06-26-2023 pH (U) 6.5 [pH] 5.0-9.0 [facility] 1,25 Dihydroxy Vit D Calcitr olon 06-06-2023 1,25 Dihydroxy Vit D Calcitrol 123.0 pg/mL High 24.8-81.5 [facility] Comment on above: Result Comment: Perf ormed at: BN - [facility] [address] [id number] Barrel Cooper: Dinora Alvarenga MD, Phone: [phone] PERFORMED BY: [facility] [address] [place] [address] PATHOLOGIST WAGE HAND JERRY CASTRO M.D. Performed By: #### F FN #### [facility] [address] [place] [address] [facility] Alanine aminotransferase [En zymatic activity/volume] in Serum or PlasmaOrdered By: Latrice Sepulveda on 06-06-2023 ALT [Catalytic activity/Vol] 19 U/L 7-52 [facility] Albumin [Mass/volume] in Ser um or Plasma by Bromocresol green (BCG) dye binding methoOrdered By: Latrice Sepulveda on 06-06-2023 Albumin BCG dye [Mass/Vol] 3.5 g/dL 3.5-5.7 [facility] Alkaline phosphatase [Enzyma tic activity/volume] in Serum or PlasmaOrdered By: Latrice Sepulveda on 06-06-2023 ALP [Catalytic activity/Vol] 84 U/L 34-104 [facility] Aspartate aminotransferase [ Enzymatic activity/volume] in Serum or PlasmaOrdered By: Latrice Sepulveda on 06-06-2023 AST [Catalytic activity/Vol] 16 U/L 13-39 [facility] Bilirubin.total [Mass/volume ] in Serum or PlasmaOrdered By: Latrice Sepulveda on 06-06-2023 Bilirubin [Mass/Vol] 0.3 mg/dL 0.3-1.0 [facility] Calcium [Mass/volume] in Ser um or PlasmaOrdered By: Latrice Sepulveda on 06-06-2023 Calcium [Mass/Vol] 8.6 mg/dL 8.6-10.3 [facility] Carbon dioxide, total [Moles /volume] in Serum or PlasmaOrdered By: Latrice Sepulveda on 06-06-2023 CO2 [Moles/Vol] 24.8 mmol/L 21.0-31.0 [facility] Chloride [Moles/volume] in S gris or PlasmaOrdered By: Latrice Sepulveda on 06-06-2023 Chloride [Moles/Vol] 107 mmol/L 98-107 [facility] Comprehensive Metabolic Pane mauricio 06-06-2023 Albumin [Mass/Vol] 3.5 g/dL Normal 3.5-5.7 [facility] Comment on above: Performed By: #### F FN #### [facility] [address] Albumin/Globulin [Mass ratio] 1.5 {ratio} Normal [facility] Comment on above: Performed By: #### F FN #### [facility] [address] ALP [Catalytic activity/Vol] 84 U/L Normal 34-104 [facility] Comment on above: Performed By: #### F FN #### [facility] [address] ALT [Catalytic activity/Vol] 19 U/L Normal 7-52 [facility] Comment on above: Performed By: #### F FN #### [facility] [address] Anion gap [Moles/Vol] 9.9 mmol/L Normal 6.0-15.0 [facility] Comment on above: Performed By: #### F FN #### [facility] [address] [place] [address] AST [Catalytic activity/Vol] 16 U/L Normal 13-39 [facility] Comment on above: Performed By: #### F FN #### [facility] [address] [place] [address] Bilirubin [Mass/Vol] 0.3 mg/dL Normal 0.3-1.0 [facility] Comment on above: Performed By: #### F FN #### [facility] [address] [place] [address] Calcium [Mass/Vol] 8.6 mg/dL Normal 8.6-10.3 [facility] Comment on above: Performed By: #### F FN #### [facility] [address] [place] [address] [place] Chloride [Moles/Vol] 107 mmol/L Normal 98-107 [facility] Comment on above: Performed By: #### F FN #### [address] CO2 [Moles/Vol] 24.8 mmol/L Normal 21.0-31.0 [facility] Comment on above: Performed By: #### F FN #### [facility] [address] Creatinine [Mass/Vol] 0.45 mg/dL Low 0.60-1.20 [facility] Comment on above: Performed By: #### F FN #### [facility] [address] [place] [address] [place] GFR/1.73 sq M.predicted MDRD (S/P/Bld) [Vol rate/Area] mL/min/{1.73_m2} Normal [facility] Comment on above: Performed By: #### F FN #### [facility] [address] Globulin (S) [Mass/Vol] 2.4 g/dL Normal [facility] Comment on above: Performed By: #### F FN #### [address] Glucose [Mass/Vol] 89 mg/dL Normal 70-100 [facility] Comment on above: Result Comment: [facility] Glucose Reference Range is dependent on time and content of last meal. Glucose of more than 200 mg/dL in a nonstressed, ambulatory subject supports the diagnosis of Diabetes Mellitus. ADA recommended reference range Performed By: #### F FN #### [address] Potassium [Moles/Vol] 3.7 mmol/L Normal 3.5-5.1 [facility] Comment on above: Performed By: #### F FN #### [address] Protein [Mass/Vol] 5.9 g/dL Low 6.4-8.9 [facility] Comment on above: Performed By: #### F FN #### [address] Sodium [Moles/Vol] 138 mmol/L Normal 136-145 [facility] Comment on above: Performed By: #### F FN #### [address] Urea nitrogen [Mass/Vol] 5 mg/dL Low 7-25 [facility] Comment on above: Performed By: #### F FN #### [facility] [address] [place] [address] [place] Creatinine [Mass/volume] in Serum or PlasmaOrdered By: Latrice Sepulveda on 06-06-2023 Creatinine [Mass/Vol] 0.45 mg/dL 0.60-1.20 [facility] Globulin Calc (S) [Mass/Vol] Ordered By: Latrice Sepulveda on 06-06-2023 Globulin (S) [Mass/Vol] 2.4 g/dL [facility] Glucose [Mass/volume] in Ser um or PlasmaOrdered By: Latrice Sepulveda on 06-06-2023 Glucose [Mass/Vol] 89 mg/dL 70-100 [facility] Comment on above: ADA recommended refe rence rangeRandom Glucose Reference Range is dependent on time and content of last meal. Glucose of more than 200 mg/dL in a nonstressed, ambulatory subject supports the diagnosis of Diabetes Mellitus. No Panel InformationOrdered By: Latrice Sepulveda on 06-06-2023 Estimated GFR (CKD-EPI) > 60.0 mL/Min [facility] Creatinine Clearance (Chem N/A [facility] Parathyrin.intact [Mass/volu me] in Serum or PlasmaOrdered By: Latrice Sepulveda on 06-06-2023 Parathyrin.intact [Mass/Vol] 45.8 pg/mL [facility] Parathyroid Hormone Intacton 06-06-2023 Parathyroid Hormone Intact 45.8 pg/mL Normal [facility] Comment on above: Result Comment: PERF ORMED BY: [facility] [address] [facility] [place] [address] PATHOLOGIST WAGE HAND JERRY CASTRO M.D. Performed By: #### F FN #### [facility] [address] Potassium [Moles/volume] in Serum or PlasmaOrdered By: Latrice Sepulveda on 06-06-2023 Potassium [Moles/Vol] 3.7 mmol/L 3.5-5.1 [facility] Protein [Mass/volume] in Ser um or PlasmaOrdered By: Latrice Sepulveda on 06-06-2023 Protein [Mass/Vol] 5.9 g/dL 6.4-8.9 [facility] Serum or plasma albumin/glob ulin mass ratioOrdered By: Latrice Sepulveda on 06-06-2023 Albumin/Globulin [Mass ratio] 1.5 {ratio} [facility] Serum or plasma anion gap de terminationOrdered By: Latrice Sepulveda on 06-06-2023 Anion gap [Moles/Vol] 9.9 mmol/L 6.0-15.0 [facility] Serum or plasma calcitriol m easurement (mass/volume)Ordered By: Latrice Sepulveda on 06-06-2023 1,25-dihydroxyvitamin D3 [Mass/Vol] 123.0 pg/mL 24.8-81.5 [facility] Comment on above: Performed at: [address] [id number] Director: Dinora Alvarenga MD, Phone: [phone] Sodium [Moles/volume] in Ser um or PlasmaOrdered By: Latrice Sepulveda on 06-06-2023 Sodium [Moles/Vol] 138 mmol/L 136-145 [facility] Urea nitrogen [Mass/volume] in Serum or PlasmaOrdered By: Latrice Sepulveda on 06-06-2023 Urea nitrogen [Mass/Vol] 5 mg/dL 7-25 [facility] Vitamin D 25 Hydroxy Totalon 06-06-2023 Vitamin D 25 Hydroxy Total 22.4 ng/mL Low 30-100 [facility] Comment on above: Result Comment: HARVINDER MIN D STATUS 25([place])VITAMIN D RANGE (ng/mL) Deficient <20 Insufficient 20 to <30 Sufficient 30 to 100 Reference: Helen MF,Lino NC, Gildardo MARTELL, et al. Evaluation,treatment, and prevention of vitamin D deficiency; an Endocrine Society clinical practice guideline. JCEM. 2010; 96(7):1911-30. PERFORMED BY: [address] [place] [address] PATHOLOGIST WAGE HAND JERRY CASTRO M.D. Performed By: #### F FN #### [facility] [address] [place] [address] [facility] Vitamin D+Metabolites [Mass/ volume] in Serum or PlasmaOrdered By: Latrice Sepulveda on 06-06-2023 Vitamin D+Metabolites [Mass/Vol] 22.4 ng/mL 30-100 [facility] Comment on above: VITAMIN D STATUS 25( [place])VITAMIN D RANGE (ng/mL) Deficient <20 Insufficient 20 to <30Sufficient 30 to 100Reference: Lino Pena, Gildardo MARTELL, et al. Evaluation,treatment, and prevention of vitamin D deficiency; an Endocrine Society clinical practice guideline. JCEM. 2010; 96(7):1911-30. Vitamin D 25 Hydroxy Totalon 05-06-2023 Vitamin D 25 Hydroxy Total 21.0 ng/mL Low 30-100 [facility] Comment on above: Order Comment: Comme nt patients 22 - 34 6/7 weeks prior to vaginal exam Result Comment: HARVINDER MIN D STATUS 25([place])VITAMIN D RANGE (ng/mL) Deficient <20 Insufficient 20 to <30 Sufficient 30 to 100 Reference: Lino Pena, Gildardo MARTELL, et al. Evaluation,treatment, and prevention of vitamin D deficiency; an Endocrine Society clinical practice guideline. JCEM. 2010; 96(7):1911-30. PERFORMED BY: [facility] [address] [place] [address] PATHOLOGIST WAGE HAND JERRY CASTRO M.D. Performed By: #### F FN #### [facility] [address] [place] [id number] [facility] Vitamin D+Metabolites [Mass/ volume] in Serum or PlasmaOrdered By: Page Magaña on 05-06-2023 Vitamin D+Metabolites [Mass/Vol] 21.0 ng/mL 30-100 [facility] Comment on above: VITAMIN D STATUS 25( [place])VITAMIN D RANGE (ng/mL) Deficient <20 Insufficient 20 to <30Sufficient 30 to 100Reference: Lino Pena, Gildardo MARTELL, et al. Evaluation,treatment, and prevention of vitamin D deficiency; an Endocrine Society clinical practice guideline. JCEM. 2010; 96(7):1911-30. Alanine aminotransferase [En zymatic activity/volume] in Serum or PlasmaOrdered By: Sarmad Luque on 01-24-2023 ALT [Catalytic activity/Vol] 20 U/L 7-52 [facility] Albumin [Mass/volume] in Ser um or Plasma by Bromocresol green (BCG) dye binding methoOrdered By: Sarmad Luque on 01-24-2023 Albumin BCG dye [Mass/Vol] 4.7 g/dL 3.5-5.7 [facility] Alkaline phosphatase [Enzyma tic activity/volume] in Serum or PlasmaOrdered By: Sarmad Luque on 01-24-2023 ALP [Catalytic activity/Vol] 71 U/L 34-104 [facility] Aspartate aminotransferase [ Enzymatic activity/volume] in Serum or PlasmaOrdered By: Sarmad Luque on 01-24-2023 AST [Catalytic activity/Vol] 14 U/L 13-39 [facility] Automated erythrocytes count in urine sediment (number/area)Ordered By: Sarmad Luque on 01-24-2023 RBC Auto (Urine sed) [#/Area] 20-49 [HPF] 0-4 [facility] Automated leukocytes count i n urine sediment (number/area)Ordered By: Sarmad Luque on 01-24-2023 WBC Auto (Urine sed) [#/Area] 1-2 [HPF] 0-4 [facility] Basic Metabolic Panelon 01-07 Anion gap [Moles/Vol] 11.4 mmol/L Normal 6.0-15.0 [facility] Comment on above: Performed By: #### C BC, LIPASE, BMP, HEPATIC ####[facility] [id number] [place] [address] [facility] Calcium [Mass/Vol] 9.0 mg/dL Normal 8.6-10.3 [facility] Comment on above: Performed By: #### C BC, LIPASE, BMP, HEPATIC ####[facility] [id number] [place] [address] [facility] Chloride [Moles/Vol] 105 mmol/L Normal 98-107 [facility] Comment on above: Performed By: #### C BC, LIPASE, BMP, HEPATIC ####[place] [id number] [address] CO2 [Moles/Vol] 25.0 mmol/L Normal 21.0-31.0 [facility] Comment on above: Performed By: #### C BC, LIPASE, BMP, HEPATIC ####[address] Creatinine [Mass/Vol] 0.67 mg/dL Normal 0.60-1.20 [facility] Comment on above: Performed By: #### C BC, LIPASE, BMP, HEPATIC ####[address] Creatinine Clr Calc Pharmacy 103.40 [facility] Comment on above: Performed By: #### C BC, LIPASE, BMP, HEPATIC ####[address] GFR/1.73 sq M.predicted MDRD (S/P/Bld) [Vol rate/Area] mL/min/{1.73_m2} [facility] Comment on above: Performed By: #### C BC, LIPASE, BMP, HEPATIC ####[address] Glucose [Mass/Vol] 89 mg/dL Normal 70-100 [facility] Comment on above: Result Comment: [place] Glucose Reference Range is dependent on time and content of last meal. Glucose of more than 200 mg/dL in a nonstressed, ambulatory subject supports the diagnosis of Diabetes Mellitus. ADA recommended reference range Performed By: #### C BC, LIPASE, BMP, HEPATIC ####[address] Potassium [Moles/Vol] 3.4 mmol/L Low 3.5-5.1 [facility] Comment on above: Performed By: #### C BC, LIPASE, BMP, HEPATIC ####[address] Sodium [Moles/Vol] 138 mmol/L Normal 136-145 [facility] Comment on above: Performed By: #### C BC, LIPASE, BMP, HEPATIC ####[facility] [id number] [place] [id number] [facility] Urea nitrogen [Mass/Vol] 6 mg/dL Low 7-25 [facility] Comment on above: Performed By: #### C BC, LIPASE, BMP, HEPATIC ####[facility] [id number] [place] [id number] [facility] Basophils Auto (Bld) [#/Vol] Ordered By: Sarmad Luque on 01-24-2023 Basophils (Bld) [#/Vol] 0.1 10*3/uL 0.0-0.2 [facility] Basophils/100 WBC Auto (Bld) Ordered By: Sarmad Luque on 01-24-2023 Basophils/100 WBC (Bld) 0.8 % . [facility] Bilirubin Test strip Ql (U)O rdered By: Sarmad Luque on 01-24-2023 Bilirubin Ql (U) Negative Negative [facility] Bilirubin.direct [Mass/volum e] in Serum or PlasmaOrdered By: Sarmad Luque on 01-24-2023 Bilirubin.direct [Mass/Vol] 0.20 mg/dL 0.03-0.18 [facility] Bilirubin.total [Mass/volume ] in Serum or PlasmaOrdered By: Sarmad Luque on 01-24-2023 Bilirubin [Mass/Vol] 0.9 mg/dL 0.3-1.0 [facility] Calcium [Mass/volume] in Ser um or PlasmaOrdered By: Sarmad Luque on 01-24-2023 Calcium [Mass/Vol] 9.0 mg/dL 8.6-10.3 [facility] Carbon dioxide, total [Moles /volume] in Serum or PlasmaOrdered By: Sarmad Luque on 01-24-2023 CO2 [Moles/Vol] 25.0 mmol/L 21.0-31.0 [facility] Chloride [Moles/volume] in S gris or PlasmaOrdered By: Sarmad Luque on 01-24-2023 Chloride [Moles/Vol] 105 mmol/L 98-107 [facility] Choriogonadotropin.beta subu nit [Units/volume] in Serum or PlasmaOrdered By: Sarmad Luque on 01-24-2023 HCG.beta subunit Qn 120.64 m[IU]/mL [facility] Comment on above: Approximate Approxim ate hCG Gestational Age Range (mIU/ml) (weeks)0.2-1 5-50 1-2 50-500 2-3 100-5,000 3-4 500-10,000 4-5 1,000-50,000 5-6 10,000-100,000 6-8 15,000-200,000 8-12 10,000-100,000 Color Auto (U)Ordered By: Eric Luque on 01-24-2023 Color (U) Yellow Yellow [facility] Complete Blood Count Auto Di ffon 01-24-2023 Basophils (Bld) [#/Vol] 0.1 10*3/uL Normal 0.0-0.2 [facility] Comment on above: Result Comment: PERF ORMED BY: [place] [address] PATHOLOGIST WAGE HAND JERRY CASTRO M.D. Performed By: #### F FN #### [address] Basophils/100 WBC (Bld) 0.8 % Normal . [facility] Comment on above: Performed By: #### F FN #### [facility] [address] [place] [address] [place] Eosinophils (Bld) [#/Vol] 0.1 10*3/uL Normal 0.0-0.45 [facility] Comment on above: Performed By: #### F FN #### [place] [address] [place] Eosinophils/100 WBC (Bld) 1.3 % Normal . [facility] Comment on above: Performed By: #### F FN #### [address] Erythrocyte distribution width (RBC) [Ratio] 13.5 % Normal 11.9-15.3 [facility] Comment on above: Performed By: #### F FN #### [facility] [address] Hematocrit (Bld) [Volume fraction] 41.4 % Normal 34.0-46.4 [facility] Comment on above: Performed By: #### F FN #### [facility] [address] Hemoglobin (Bld) [Mass/Vol] 14.1 g/dL Normal 11.8-15.4 [facility] Comment on above: Performed By: #### F FN #### [facility] [address] Lymphocytes (Bld) [#/Vol] 2.4 10*3/uL Normal 1.00-4.8 [facility] Comment on above: Performed By: #### F FN #### [address] Lymphocytes/100 WBC (Bld) 31.9 % Normal . [facility] Comment on above: Performed By: #### F FN #### [facility] [address] MCH (RBC) [Entitic mass] 28.8 pg Normal 24.7-34.3 [facility] Comment on above: Performed By: #### F FN #### [facility] [address] MCV (RBC) [Entitic vol] 84.3 fL Normal 80-100 [facility] Comment on above: Performed By: #### F FN #### [address] Mean Corpuscular HGB Conc 34.1 g/dL Normal 32.0-35.0 [facility] Comment on above: Performed By: #### F FN #### [address] Monocytes (Bld) [#/Vol] 0.5 10*3/uL Normal 0.0-0.8 [facility] Comment on above: Performed By: #### F FN #### [facility] [address] Monocytes/100 WBC (Bld) 17.21 % Normal 0.00-20.[address] [facility] Comment on above: Performed By: #### F FN #### [facility] [address] Monocytes/100 WBC (Bld) 7.3 % Normal . [facility] Comment on above: Performed By: #### F FN #### [facility] [address] Neutrophils (Bld) [#/Vol] 4.3 10*3/uL Normal 1.8-7.7 [facility] Comment on above: Performed By: #### F FN #### [address] Neutrophils/100 WBC (Bld) 58.7 % Normal . [facility] Comment on above: Performed By: #### F FN #### [address] NRBC% 0.1 /100{WBC} Normal 0-0.5 [facility] Comment on above: Performed By: #### F FN #### [address] Platelet mean volume (Bld) [Entitic vol] 9.2 fL Normal 6.3-10.7 [facility] Comment on above: Performed By: #### F FN #### [place] [address] [place] Platelets (Bld) [#/Vol] 222 10*3/uL Normal 150-450 [facility] Comment on above: Performed By: #### F FN #### [place] [address] [place] RBC (Bld) [#/Vol] 4.91 10*6/uL Normal 3.60-5.00 [facility] Comment on above: Performed By: #### F FN #### [place] [address] [place] WBC (Bld) [#/Vol] 7.4 10*3/uL Normal 3.8-11.6 [facility] Comment on above: Performed By: #### F FN #### [facility] [address] Creatinine [Mass/volume] in Serum or PlasmaOrdered By: Sarmad Luque on 01-24-2023 Creatinine [Mass/Vol] 0.67 mg/dL 0.60-1.20 [facility] Dipstick and Microscopicon 0 01-24-2023 Appearance (U) Cloudy Critically abnormal Clear [facility] Comment on above: Order Comment: Name Collection Type:: Clean-Voided Midstream Performed By: #### A DDONUAPLUS, CG ####[place] [id number] [place] [id number] [facility] Bacteria,Urine None Seen Normal None Seen [facility] Comment on above: Order Comment: Name Collection Type:: Clean-Voided Midstream Performed By: #### A DDONUAPLUS, UHCG ####[place] [id number] [place] [id number] [facility] Bilirubin,Urine Negative Normal Negative [facility] Comment on above: Order Comment: Name Collection Type:: Clean-Voided Midstream Performed By: #### A DDONUAPLUS, UHCG ####[place] [id number] [place] [id number] [facility] Color (U) Yellow Normal Yellow [facility] Comment on above: Order Comment: Name Collection Type:: Clean-Voided Midstream Performed By: #### A DDONUAPLUS, UHCG ####[place] [id number] [place] [id number] [facility] Glucose Ql (U) Normal Normal Normal [facility] Comment on above: Order Comment: Name Collection Type:: Clean-Voided Midstream Performed By: #### A DDONUAPLUS, UHCG ####[place] [id number] [place] [address] [facility] Hyaline Casts,Urine 0-8 Normal 0-8 [facility] Comment on above: Order Comment: Name Collection Type:: Clean-Voided Midstream Performed By: #### A DDONUAPLUS, UHCG ####[address] [address] [facility] Ketones Ql (U) Trace High Negative [facility] Comment on above: Order Comment: Name Collection Type:: Clean-Voided Midstream Performed By: #### A DDONUAPLUS, UHCG ####[address] [address] [facility] Leukocyte esterase Test strip Ql (U) 1+ High Negative [facility] Comment on above: Order Comment: Name Collection Type:: Clean-Voided Midstream Performed By: #### A DDONUAPLUS, UHCG ####[address] [address] [facility] Nitrite,Urine Negative Normal Negative [facility] Comment on above: Order Comment: Name Collection Type:: Clean-Voided Midstream Performed By: #### A DDONUAPLUS, UHCG ####[address] [address] [facility] Occult Blood,Urine 2+ High Negative [facility] Comment on above: Order Comment: Name Collection Type:: Clean-Voided Midstream Performed By: #### A DDONUAPLUS, UHCG ####[address] [address] [facility] pH (U) 6.0 [pH] Normal 5.0-9.0 [facility] Comment on above: Order Comment: Name Collection Type:: Clean-Voided Midstream Performed By: #### A DDONUAPLUS, UHCG ####[address] [address] [facility] Protein,Urine Trace High Negative [facility] Comment on above: Order Comment: Name Collection Type:: Clean-Voided Midstream Performed By: #### A DDONUAPLUS, UHCG ####[address] [address] [place] RBC,Urine 20-49 High 0-4 [facility] Comment on above: Order Comment: Name Collection Type:: Clean-Voided Midstream Performed By: #### A DDONUAPLUS, [facility] ####[place] [id number] [facility] Specificy [place],Urine 1.022 Normal 1.001-1.030 [facility] Comment on above: Order Comment: Name Collection Type:: Clean-Voided Midstream Performed By: #### A DDONUAPLUS, [facility] ####[place] [id number] [facility] Squamous Epithelial Cell,Urine 5-9 High 0-2 [facility] Comment on above: Order Comment: Name Collection Type:: Clean-Voided Midstream Performed By: #### A DDONLINNEA, [facility] ####[address] Urobilinogen,Urine Normal Normal Normal [facility] Comment on above: Order Comment: Name Collection Type:: Clean-Voided Midstream Performed By: #### A DDONLINNEA [facility] ####[place] [id number] [facility] WBC,Urine 1-2 Normal 0-4 [facility] Comment on above: Order Comment: Name Collection Type:: Clean-Voided Midstream Performed By: #### A DDONUAPLUS, [facility] ####[place] [id number] [facility] Eosinophils Auto (Bld) [#/Vo l]Ordered By: Sarmad Luque on 01-24-2023 Eosinophils (Bld) [#/Vol] 0.1 10*3/uL 0.0-0.45 [facility] Eosinophils/100 WBC Auto (Bl d)Ordered By: Sarmad Luque on 01-24-2023 Eosinophils/100 WBC (Bld) 1.3 % . [facility] Erythrocyte distribution wid th Auto (RBC) [Ratio]Ordered By: Sarmad Luque on 01-24-2023 Erythrocyte distribution width (RBC) [Ratio] 13.5 % 11.9-15.3 [facility] Globulin Calc (S) [Mass/Vol] Ordered By: Sarmad Luque on 01-24-2023 Globulin (S) [Mass/Vol] 2.7 g/dL [facility] Glucose [Mass/volume] in Ser um or PlasmaOrdered By: Sarmad Luque on 01-24-2023 Glucose [Mass/Vol] 89 mg/dL 70-100 [facility] Comment on above: ADA recommended refe rence rangeRandom Glucose Reference Range is dependent on time and content of last meal. Glucose of more than 200 mg/dL in a nonstressed, ambulatory subject supports the diagnosis of Diabetes Mellitus. HCG ( test) IA.rapi d Ql (U)Ordered By: Sarmad Luque on 01-24-2023 HCG ( test) Ql (U) Positive [facility] HCG,Quantitativeon 3 HCG,Quantitative 120.64 m[iU]/mL Normal [facility] Comment on above: Result Comment: Appr oximate Approximate hCG Gestational Age Range (mIU/ml) (weeks) 0.2-1 5-50 1-2 50-500 2-3 100-5,000 3-4 500-10,000 4-5 1,000-50,000 5-6 10,000-100,000 6-8 15,000-200,000 8-12 10,000-100,000 PERFORMED BY: [address] [place] [address] PATHOLOGIST WAGE [employer] JERRY CASTRO M.D. Performed By: #### H CGQNT ####[place] [id number] [facility] HCG,Urineon 01-24-2023 Beta HCG ( test) Ql (U) Positive [facility] Comment on above: Order Comment: Name Collection Type:: Clean-Voided Midstream Result Comment: PERF ORMED BY: [address] [place] [address] PATHOLOGIST [employer]AGE [employer] JERRY CASTRO M.D. Performed By: #### A DDONUAPLUS, CG ####[place] [id number] [facility] Hematocrit Auto (Bld) [Volum e fraction]Ordered By: Sarmad Luque on 01-24-2023 Hematocrit (Bld) [Volume fraction] 41.4 % 34.0-46.4 [facility] Hemoglobin [Mass/volume] in BloodOrdered By: Sarmad Ene on 01-24-2023 Hemoglobin (Bld) [Mass/Vol] 14.1 g/dL 11.8-15.4 [facility] Hepatic Panelon 01-24-2023 Albumin [Mass/Vol] 4.7 g/dL Normal 3.5-5.7 [facility] Comment on above: Performed By: #### F FN #### [facility] [address] Albumin/Globulin [Mass ratio] 1.7 {ratio} Normal [facility] Comment on above: Performed By: #### F FN #### [facility] [address] ALP [Catalytic activity/Vol] 71 U/L Normal 34-104 [facility] Comment on above: Performed By: #### F FN #### [facility] [address] [place] [id number] [facility] ALT [Catalytic activity/Vol] 20 U/L Normal 7-52 [facility] Comment on above: Performed By: #### F FN #### [facility] [address] AST [Catalytic activity/Vol] 14 U/L Normal 13-39 [facility] Comment on above: Performed By: #### F FN #### [facility] [address] [place] [id number] [place] Bilirubin [Mass/Vol] 0.9 mg/dL Normal 0.3-1.0 [facility] Comment on above: Performed By: #### F FN #### [facility] [address] [place] [address] [place] Bilirubin,Indirect 0.7 mg/dL Normal [facility] Comment on above: Performed By: #### F FN #### [facility] [address] [place] [address] [place] Bilirubin.indirect [Mass/Vol] 0.20 mg/dL High 0.03-0.18 [facility] Comment on above: Performed By: #### F FN #### [facility] [address] Globulin (S) [Mass/Vol] 2.7 g/dL Normal [facility] Comment on above: Performed By: #### F FN #### [facility] [address] Protein [Mass/Vol] 7.4 g/dL Normal 6.4-8.9 [facility] Comment on above: Performed By: #### F FN #### [facility] [address] Ketones Auto test strip (U) [Mass/Vol]Ordered By: Sarmad Luque on 01-24-2023 Ketones (U) [Mass/Vol] Trace Negative [facility] - UrinalysisOrder ed By: Sarmad Luque on 01-24-2023 Hyaline casts LM Ql (Urine sed) 0-8 [LPF] 0-8 [facility] Leukocytes [#/volume] correc mague for nucleated erythrocytes in Blood by Automated counOrdered By: Sarmad Luque on 01-24-2023 WBC corrected for nucl RBC Auto (Bld) [#/Vol] 7.4 10*3/uL 3.8-11.6 [facility] Lipaseon 01-24-2023 Lipase [Catalytic activity/Vol] 47.0 U/L Normal 11.0-82.0 [facility] Comment on above: Result Comment: PERF ORMED BY: [facility] [address] [facility] [place] [address] PATHOLOGIST [employer] JERRY CASTRO M.D. Performed By: #### C BC, LIPASE, BMP, HEPATIC ####[facility] [address] Lipase [Enzymatic activity/v olume] in Serum or PlasmaOrdered By: Sarmad Luque on 01-24-2023 Lipase [Catalytic activity/Vol] 47.0 U/L 11.0-82.0 [facility] Lymphocytes Auto (Bld) [#/Vo l]Ordered By: Sarmad Luque on 01-24-2023 Lymphocytes (Bld) [#/Vol] 2.4 10*3/uL 1.00-4.8 [facility] Lymphocytes/100 WBC Auto (Bl d)Ordered By: Sarmad Luque on 01-24-2023 Lymphocytes/100 WBC (Bld) 31.9 % . [facility] MCH Auto (RBC) [Entitic mass ]Ordered By: Sarmad Luque on 01-24-2023 MCH (RBC) [Entitic mass] 28.8 pg 24.7-34.3 [facility] MCHC Auto (RBC) [Mass/Vol]Or dered By: Sarmad Luque on 01-24-2023 MCHC (RBC) [Mass/Vol] 34.1 g/dL 32.0-35.0 [facility] MCV Auto (RBC) [Entitic vol] Ordered By: Sarmad Luque on 01-24-2023 MCV (RBC) [Entitic vol] 84.3 fL 80-100 [facility] Monocyte distribution width [Entitic volume] in Blood by AutomatedOrdered By: Sarmad Luque on 01-24-2023 Monocyte distribution width Auto (Bld) [Entitic vol] 17.21 % 0.00-20.00 [facility] Monocytes Auto (Bld) [#/Vol] Ordered By: Sarmad Luque on 01-24-2023 Monocytes (Bld) [#/Vol] 0.5 10*3/uL 0.0-0.8 [facility] Monocytes/100 WBC Auto (Bld) Ordered By: Sarmad Luque on 01-24-2023 Monocytes/100 WBC (Bld) 7.3 % . [facility] Neutrophils Auto (Bld) [#/Vo l]Ordered By: Sarmad Luque on 01-24-2023 Neutrophils (Bld) [#/Vol] 4.3 10*3/uL 1.8-7.7 [facility] Neutrophils/100 WBC Auto (Bl d)Ordered By: Sarmad Luque on 01-24-2023 Neutrophils/100 WBC (Bld) 58.7 % . [facility] Nitrite Test strip Ql (U)Ord ered By: Sarmad Luque on 01-24-2023 Nitrite Ql (U) Negative Negative [facility] No Panel InformationOrdered By: Sarmad Luque on 01-24-2023 Estimated GFR (CKD-EPI) > 60.0 mL/Min [facility] Creatinine Clearance (Chem 103.40 [facility] Nucleated erythrocytes [Pres ence] in Blood by Automated countOrdered By: Sarmad Luque on 01-24-2023 Nucleated RBC Auto Ql (Bld) 0.1 /100{WBC} 0-0.5 [facility] Platelet mean volume Auto (B ld) [Entitic vol]Ordered By: Sarmad Luque on 01-24-2023 Platelet mean volume (Bld) [Entitic vol] 9.2 fL 6.3-10.7 [facility] Platelets Auto (Bld) [#/Vol] Ordered By: Sarmad Luque on 01-24-2023 Platelets (Bld) [#/Vol] 222 10*3/uL 150-450 [facility] Potassium [Moles/volume] in Serum or PlasmaOrdered By: Sarmad Luque on 01-24-2023 Potassium [Moles/Vol] 3.4 mmol/L 3.5-5.1 [facility] Protein Auto test strip (U) [Mass/Vol]Ordered By: Sarmad Luque on 01-24-2023 Protein (U) [Mass/Vol] Trace mg/dL Negative [facility] Protein [Mass/volume] in Ser um or PlasmaOrdered By: Sarmad Luque on 01-24-2023 Protein [Mass/Vol] 7.4 g/dL 6.4-8.9 [facility] RBC Auto (Bld) [#/Vol]Ordere d By: Sarmad Luque on 01-24-2023 RBC (Bld) [#/Vol] 4.91 10*6/uL 3.60-5.00 [facility] Serum or plasma albumin/glob ulin mass ratioOrdered By: Sarmad Luque on 01-24-2023 Albumin/Globulin [Mass ratio] 1.7 {ratio} [facility] Serum or plasma anion gap de terminationOrdered By: Sarmad Luque on 01-24-2023 Anion gap [Moles/Vol] 11.4 mmol/L 6.0-15.0 [facility] Serum or plasma non-glucuron idated bilirubin measurement (mass/volume)Ordered By: Sarmad Luque on 01-24-2023 Bilirubin.indirect [Mass/Vol] 0.7 mg/dL [facility] Sodium [Moles/volume] in Ser um or PlasmaOrdered By: Sarmad Luque on 01-24-2023 Sodium [Moles/Vol] 138 mmol/L 136-145 [facility] Specific gravity Auto test s trip (U) [Rel density]Ordered By: Sarmad Luque on 01-24-2023 Specific gravity (U) [Rel density] 1.022 1.001-1.030 [facility] Squamous epithelial cells de tection in urine sediment by light microscopyOrdered By: Sarmad uLque on 01-24-2023 Epithelial cells.squamous LM Ql (Urine sed) 5-9 [HPF] 0-2 [facility] US OB transvaginalon 023 US OB transvaginal [facility] [place] [address] Ultrasound Report Signed Patient: Elyssa Smith MR#: [id number] : 1990 Acct:[id number] Age/Sex: 32 / F ADM Date: 01/24/23 Loc: ER Room: Type: [facility] ER Attending Dr: Ordering Provider: Sarmad Luque DO Date of Service: 01/24/23 US/US OB <= 14 weeks fetus: Abdominal Pain ([id number]) US/US OB transvaginal: PAIN Copies to: Sarmad [...] Carrillo Ziegler M.D.01/24/2023 2:06 PM Dictation Location: [place] [address] Tech: Ashely Doll Transcribed By: SILVINA 01/24/23 1406 Dictated By: Carrillo Ziegler II, MD 01/24/23 1401 Signed By: 01/24/23 1406 Normal [facility] US renal BIon 01-24-2023 US renal BI [facility] [place] [address] Ultrasound Report Signed Patient: Elyssa Smith MR#: [id number] : 1990 Acct:[id number] Age/Sex: 32 / F ADM Date: 01/24/23 Loc: ER Room: Type: [facility] ER Attending Dr: Ordering Provider: Sarmad [...] Carrillo Ziegler M.D.01/24/2023 2:12 PM Dictation Location: [place] [address] Tech: Ashely Holden Transcribed By: SILVINA 01/24/23 1412 Dictated By: Carrillo Ziegler II, MD 01/24/23 1410 Signed By: 01/24/23 1412 Normal [facility] Urea nitrogen [Mass/volume] in Serum or PlasmaOrdered By: Sarmad Luque on 01-24-2023 Urea nitrogen [Mass/Vol] 6 mg/dL 7 [facility] Urine bacteria detection by automated methodOrdered By: Sarmad Luque on 01-24-2023 Bacteria Auto Ql (U) None seen None Seen [facility] Urine clarity by refractomet ry automatedOrdered By: Sarmad Luque on 01-24-2023 Clarity Refractometry automated (U) Cloudy Clear [facility] Urine glucose measurement by automated test strip (mass/volume)Ordered By: Sarmad Luque on 01-24-2023 Glucose Auto test strip (U) [Mass/Vol] Normal mg/dL Normal [facility] Urine hemoglobin detection b y automated test stripOrdered By: Sarmad Luque on 01-24-2023 Hemoglobin Auto test strip Ql (U) 2+ Negative [facility] Urine leukocyte esterase det ection by automated test stripOrdered By: Sarmad Luque on 01-24-2023 Leukocyte esterase Auto test strip Ql (U) 1+ Negative [facility] Urobilinogen Auto test strip (U) [Mass/Vol]Ordered By: Sarmad Luque on 01-24-2023 Urobilinogen (U) [Mass/Vol] Normal mg/dL Normal [facility] WBC Auto (Bld) [#/Vol]Ordere d By: Sarmad Luque on 01-24-2023 WBC (Bld) [#/Vol] 7.4 10*3/uL 3.8-11.6 [facility] pH Auto test strip (U)Ordere d By: Sarmad Luque on 01-24-2023 pH (U) 6.0 [pH] 5.0-9.0 [facility] ALFRED with Reflexon 10-27-2022 ALFRED with Reflex Negative Normal Negative [facility] Comment on above: Result Comment: Perf ormed at: - [facility] [address] [id number] [place] Cooper: Ismael Suh PhD, Phone: [phone] PERFORMED BY: [place] [address] PATHOLOGIST WAGE HAND JERRY CASTRO M.D. Performed By: #### F FN #### [address] Alanine aminotransferase [En zymatic activity/volume] in Serum or PlasmaOrdered By: Page Magaña on 10-27-2022 ALT [Catalytic activity/Vol] 30 U/L 7-52 [facility] Albumin [Mass/volume] in Ser um or Plasma by Bromocresol green (BCG) dye binding methoOrdered By: Page Magaña on 10-27-2022 Albumin BCG dye [Mass/Vol] 4.2 g/dL 3.5-5.7 [facility] Alkaline phosphatase [Enzyma tic activity/volume] in Serum or PlasmaOrdered By: Page Magaña on 10-27-2022 ALP [Catalytic activity/Vol] 86 U/L 34-104 [facility] Aspartate aminotransferase [ Enzymatic activity/volume] in Serum or PlasmaOrdered By: Page Magaña on 10-27-2022 AST [Catalytic activity/Vol] 17 U/L 13-39 [facility] Basophils Auto (Bld) [#/Vol] Ordered By: Page Magaña on 10-27-2022 Basophils (Bld) [#/Vol] 0.1 10*3/uL 0.0-0.2 [facility] Basophils/100 WBC Auto (Bld) Ordered By: Page Magaña on 10-27-2022 Basophils/100 WBC (Bld) 0.6 % . [facility] Bilirubin.total [Mass/volume ] in Serum or PlasmaOrdered By: Page Magaña on 10-27-2022 Bilirubin [Mass/Vol] 0.6 mg/dL 0.3-1.0 [facility] Calcium [Mass/volume] in Ser um or PlasmaOrdered By: Page Magaña on 10-27-2022 Calcium [Mass/Vol] 9.0 mg/dL 8.6-10.3 [facility] Carbon dioxide, total [Moles /volume] in Serum or PlasmaOrdered By: Page Magaña on 10-27-2022 CO2 [Moles/Vol] 24.7 mmol/L 21.0-31.0 [facility] Chloride [Moles/volume] in S gris or PlasmaOrdered By: Page Magaña on 10-27-2022 Chloride [Moles/Vol] 107 mmol/L 98-107 [facility] Cholesterol [Mass/volume] in Serum or PlasmaOrdered By: Page Magaña on 10-27-2022 Cholesterol [Mass/Vol] 209 mg/dL 140-200 [facility] Comment on above: Chol less than 200 m g/dl low riskChol 201-239 mg/dl borderline riskChol 240 mg/dl and greater high risk Cholesterol in LDL Calc [Mas s/Vol]Ordered By: Page Magaña on 10-27-2022 Cholesterol in LDL [Mass/Vol] 155 mg/dL 0-100 [facility] Comment on above: LDL ATP III CLASSIFI CATIONLDL less than 100 mg/dL OptimalLDL 100-129 mg/dL Near or above optimalLDL 130-159 mg/dL Borderline highLDL 160-189 mg/dL HighLDL greater than 189 mg/dL Very high Cholesterol in VLDL Calc [Ma ss/Vol]Ordered By: Page Magaña on 10-27-2022 Cholesterol in VLDL [Mass/Vol] 11 mg/dL [facility] Complete Blood Count Auto Di ffon 10-27-2022 Basophils (Bld) [#/Vol] 0.1 10*3/uL Normal 0.0-0.2 [facility] Comment on above: Result Comment: PERF ORMED BY: [place] [address] PATHOLOGIST WAGE HAND JERRY CASTRO M.D. Performed By: #### L IPID, CMP, CBC, TSH3 wRFLX, [id number] #### [facility] [address] [place] [address] #### ALFRED CHOICE, RA #### [facility] , Basophils/100 WBC (Bld) 0.6 % Normal . [facility] Comment on above: Performed By: #### L IPID, CMP, CBC, TSH3 wRFLX, [id number] #### [place] [address] [place] #### ALFRED CHOICE, RA #### [facility] , Eosinophils (Bld) [#/Vol] 0.1 10*3/uL Normal 0.0-0.45 [facility] Comment on above: Performed By: #### L IPID, CMP, CBC, TSH3 wRFLX, [id number] #### [facility] [address] [place] [address] [place] #### ALFRED CHOICE, RA #### [facility] , Eosinophils/100 WBC (Bld) 1.6 % Normal . [facility] Comment on above: Performed By: #### L IPID, CMP, CBC, TSH3 wRFLX, [id number] #### [facility] [address] [place] [address] [place] #### ALFRED CHOICE, RA #### [facility] , Erythrocyte distribution width (RBC) [Ratio] 14.4 % Normal 11.9-15.3 [facility] Comment on above: Performed By: #### L IPID, CMP, CBC, TSH3 wRFLX, [id number] #### [place] [address] [place] #### ALFRED CHOICE, RA #### [facility] , Hematocrit (Bld) [Volume fraction] 40.5 % Normal 34.0-46.4 [facility] Comment on above: Performed By: #### L IPID, CMP, CBC, TSH3 wRFLX, [id number] #### [place] [address] [place] #### ALFRED CHOICE, RA #### [facility] , Hemoglobin (Bld) [Mass/Vol] 13.5 g/dL Normal 11.8-15.4 [facility] Comment on above: Performed By: #### L IPID, CMP, CBC, TSH3 wRFLX, [id number] #### [place] [address] [place] #### ALFRED CHOICE, RA #### [facility] , Lymphocytes (Bld) [#/Vol] 2.8 10*3/uL Normal 1.00-4.8 [facility] Comment on above: Performed By: #### L IPID, CMP, CBC, TSH3 wRFLX, [id number] #### [place] [address] [place] #### ALFRED CHOICE, RA #### [facility] , Lymphocytes/100 WBC (Bld) 30.3 % Normal . [facility] Comment on above: Performed By: #### L IPID, CMP, CBC, TSH3 wRFLX, [id number] #### [place] [address] [place] #### ALFRED CHOICE, RA #### [facility] , MCH (RBC) [Entitic mass] 28.1 pg Normal 24.7-34.3 [facility] Comment on above: Performed By: #### L IPID, CMP, CBC, TSH3 wRFLX, [id number] #### [facility] [address] [place] [address] [place] #### ALFRED CHOICE, RA #### [facility] , MCV (RBC) [Entitic vol] 84.6 fL Normal 80-100 [facility] Comment on above: Performed By: #### L IPID, CMP, CBC, TSH3 wRFLX, [id number] #### [place] [address] [place] #### ALFRED CHOICE, RA #### [facility] , Mean Corpuscular HGB Conc 33.3 g/dL Normal 32.0-35.0 [facility] Comment on above: Performed By: #### L IPID, CMP, CBC, TSH3 wRFLX, [id number] #### [facility] [address] [place] [address] [place] #### ALFRED CHOICE, RA #### [facility] , Monocytes (Bld) [#/Vol] 0.6 10*3/uL Normal 0.0-0.8 [facility] Comment on above: Performed By: #### L IPID, CMP, CBC, TSH3 wRFLX, [id number] #### [place] [address] [place] #### ALFRED CHOICE, RA #### [facility] , Monocytes/100 WBC (Bld) 6.7 % Normal . [facility] Comment on above: Performed By: #### L IPID, CMP, CBC, TSH3 wRFLX, [id number] #### [facility] [address] [place] [address] [place] #### ALFRED CHOICE, RA #### [facility] , Neutrophils (Bld) [#/Vol] 5.5 10*3/uL Normal 1.8-7.7 [facility] Comment on above: Performed By: #### L IPID, CMP, CBC, TSH3 wRFLX, [id number] #### [facility] [address] [place] [address] [place] #### ALFRED CHOICE, RA #### [facility] , Neutrophils/100 WBC (Bld) 60.8 % Normal . [facility] Comment on above: Performed By: #### L IPID, CMP, CBC, TSH3 wRFLX, [id number] #### [facility] [address] [place] [address] [place] #### ALFRED CHOICE, RA #### [facility] , NRBC% 0.3 /100{WBC} Normal 0-0.5 [facility] Comment on above: Performed By: #### L IPID, CMP, CBC, TSH3 wRFLX, [id number] #### [place] [address] [place] #### ALFRED CHOICE, RA #### [facility] , Platelet mean volume (Bld) [Entitic vol] 8.9 fL Normal 6.3-10.7 [facility] Comment on above: Performed By: #### L IPID, CMP, CBC, TSH3 wRFLX, [id number] #### [place] [address] [place] #### ALFRED CHOICE, RA #### [facility] , Platelets (Bld) [#/Vol] 246 10*3/uL Normal 150-450 [facility] Comment on above: Performed By: #### L IPID, CMP, CBC, TSH3 wRFLX, [id number] #### [facility] [address] [place] [address] [place] #### ALFRED CHOICE, RA #### [facility] , RBC (Bld) [#/Vol] 4.79 10*6/uL Normal 3.60-5.00 [facility] Comment on above: Performed By: #### L IPID, CMP, CBC, TSH3 wRFLX, [id number] #### [facility] [address] [place] [address] [place] #### ALFRED CHOICE, RA #### [facility] , WBC (Bld) [#/Vol] 9.1 10*3/uL Normal 3.8-11.6 [facility] Comment on above: Performed By: #### L IPID, CMP, CBC, TSH3 wRFLX, [id number] #### [facility] [address] [place] [address] [place] #### ALFRED CHOICE, RA #### [facility] , Comprehensive Metabolic Pane mauricio 10-27-2022 Albumin [Mass/Vol] 4.2 g/dL Normal 3.5-5.7 [facility] Comment on above: Order Comment: PT IS FASTING Performed By: #### L IPID, CMP, CBC, TSH3 wRFLX, [id number] #### [facility] [address] [place] [address] [place] #### ALRFED CHOICE, RA #### [facility] , Albumin/Globulin [Mass ratio] 1.8 {ratio} Normal [facility] Comment on above: Order Comment: PT IS FASTING Performed By: #### L IPID, CMP, CBC, TSH3 wRFLX, [id number] #### [facility] [address] [place] [address] [place] #### ALFRED CHOICE, RA #### [facility] , ALP [Catalytic activity/Vol] 86 U/L Normal 34-104 [facility] Comment on above: Order Comment: PT IS FASTING Performed By: #### L IPID, CMP, CBC, TSH3 wRFLX, [id number] #### [facility] [address] [place] [address] [place] #### ALFRED CHOICE, RA #### [facility] , ALT [Catalytic activity/Vol] 30 U/L Normal 7-52 [facility] Comment on above: Order Comment: PT IS FASTING Performed By: #### L IPID, CMP, CBC, TSH3 wRFLX, [id number] #### [facility] [address] [place] [address] [place] #### ALFRED CHOICE, RA #### [facility] , Anion gap [Moles/Vol] 10.6 mmol/L Normal 6.0-15.0 [facility] Comment on above: Order Comment: PT IS FASTING Performed By: #### L IPID, CMP, CBC, TSH3 wRFLX, [id number] #### [facility] [address] [place] [address] #### ALFRED CHOICE, RA #### [facility] , AST [Catalytic activity/Vol] 17 U/L Normal 13-39 [facility] Comment on above: Order Comment: PT IS FASTING Performed By: #### L IPID, CMP, CBC, TSH3 wRFLX, [id number] #### [facility] [address] [place] [address] [place] #### ALFRED CHOICE, RA #### [facility] , Bilirubin [Mass/Vol] 0.6 mg/dL Normal 0.3-1.0 [facility] Comment on above: Order Comment: PT IS FASTING Performed By: #### L IPID, CMP, CBC, TSH3 wRFLX, [id number] #### [facility] [address] [place] [address] [place] #### ALFRED CHOICE, RA #### [facility] , Calcium [Mass/Vol] 9.0 mg/dL Normal 8.6-10.3 [facility] Comment on above: Order Comment: PT IS FASTING Performed By: #### L IPID, CMP, CBC, TSH3 wRFLX, [id number] #### [facility] [address] [place] [address] [place] #### ALFRED CHOICE, RA #### [facility] , Chloride [Moles/Vol] 107 mmol/L Normal 98-107 [facility] Comment on above: Order Comment: PT IS FASTING Performed By: #### L IPID, CMP, CBC, TSH3 wRFLX, [id number] #### [facility] [address] [place] [address] [place] #### ALFRED CHOICE, RA #### [facility] , CO2 [Moles/Vol] 24.7 mmol/L Normal 21.0-31.0 [facility] Comment on above: Order Comment: PT IS FASTING Performed By: #### L IPID, CMP, CBC, TSH3 wRFLX, [id number] #### [place] [address] [place] #### ALFRED CHOICE, RA #### [facility] , Creatinine [Mass/Vol] 0.62 mg/dL Normal 0.60-1.20 [facility] Comment on above: Order Comment: PT IS FASTING Performed By: #### L IPID, CMP, CBC, TSH3 wRFLX, [id number] #### [place] [address] [place] #### ALFRED CHOICE, RA #### [facility] , GFR/1.73 sq M.predicted MDRD (S/P/Bld) [Vol rate/Area] mL/min/{1.73_m2} [facility] Comment on above: Order Comment: PT IS FASTING Performed By: #### L IPID, CMP, CBC, TSH3 wRFLX, [id number] #### [place] [address] [place] #### ALFRED CHOICE, RA #### [facility] , Globulin (S) [Mass/Vol] 2.3 g/dL Normal [facility] Comment on above: Order Comment: PT IS FASTING Performed By: #### L IPID, CMP, CBC, TSH3 wRFLX, [id number] #### [place] [address] [place] #### ALFRED CHOICE, RA #### [facility] , Glucose [Mass/Vol] 93 mg/dL Normal 70-100 [facility] Comment on above: Order Comment: PT IS FASTING Result Comment: [facility] Glucose Reference Range is dependent on time and content of last meal. Glucose of more than 200 mg/dL in a nonstressed, ambulatory subject supports the diagnosis of Diabetes Mellitus. ADA recommended reference range Performed By: #### L IPID, CMP, CBC, TSH3 wRFLX, [id number] #### [place] [address] [place] #### ALFRED CHOICE, RA #### [facility] , Potassium [Moles/Vol] 4.3 mmol/L Normal 3.5-5.1 [facility] Comment on above: Order Comment: PT IS FASTING Performed By: #### L IPID, CMP, CBC, TSH3 wRFLX, [id number] #### [place] [address] [place] #### ALFRED CHOICE, RA #### [facility] , Protein [Mass/Vol] 6.5 g/dL Normal 6.4-8.9 [facility] Comment on above: Order Comment: PT IS FASTING Performed By: #### L IPID, CMP, CBC, TSH3 wRFLX, [id number] #### [place] [address] [place] #### ALFRED CHOICE, RA #### [facility] , Sodium [Moles/Vol] 138 mmol/L Normal 136-145 [facility] Comment on above: Order Comment: PT IS FASTING Performed By: #### L IPID, CMP, CBC, TSH3 wRFLX, [id number] #### [facility] [address] [place] [address] [place] #### ALFRED CHOICE, RA #### [facility] , Urea nitrogen [Mass/Vol] 12 mg/dL Normal 7-25 [facility] Comment on above: Order Comment: PT IS FASTING Performed By: #### L IPID, CMP, CBC, TSH3 wRFLX, [id number] #### [facility] [address] #### ALFRED VASQUEZ, RA #### [facility] , Creatinine [Mass/volume] in Serum or PlasmaOrdered By: Page Magaña on 10-27-2022 Creatinine [Mass/Vol] 0.62 mg/dL 0.60-1.20 [facility] Eosinophils Auto (Bld) [#/Vo l]Ordered By: Page Magaña on 10-27-2022 Eosinophils (Bld) [#/Vol] 0.1 10*3/uL 0.0-0.45 [facility] Eosinophils/100 WBC Auto (Bl d)Ordered By: Page Magaña on 10-27-2022 Eosinophils/100 WBC (Bld) 1.6 % . [facility] Erythrocyte distribution wid th Auto (RBC) [Ratio]Ordered By: Page Magaña on 10-27-2022 Erythrocyte distribution width (RBC) [Ratio] 14.4 % 11.9-15.3 [facility] Globulin Calc (S) [Mass/Vol] Ordered By: Page Magaña on 10-27-2022 Globulin (S) [Mass/Vol] 2.3 g/dL [facility] Glucose [Mass/volume] in Ser um or PlasmaOrdered By: Page Gracielamelany on 10-27-2022 Glucose [Mass/Vol] 93 mg/dL 70-100 [facility] Comment on above: ADA recommended refe rence rangeRandom Glucose Reference Range is dependent on time and content of last meal. Glucose of more than 200 mg/dL in a nonstressed, ambulatory subject supports the diagnosis of Diabetes Mellitus. Hematocrit Auto (Bld) [Volum e fraction]Ordered By: Page Magaña on 10-27-2022 Hematocrit (Bld) [Volume fraction] 40.5 % 34.0-46.4 [facility] Hemoglobin [Mass/volume] in BloodOrdered By: Page Magaña on 10-27-2022 Hemoglobin (Bld) [Mass/Vol] 13.5 g/dL 11.8-15.4 [facility] Leukocytes [#/volume] correc mague for nucleated erythrocytes in Blood by Automated counOrdered By: Page Magaña on 10-27-2022 WBC corrected for nucl RBC Auto (Bld) [#/Vol] 9.1 10*3/uL 3.8-11.6 [facility] Lipid Panelon 10-27-2022 Cholesterol [Mass/Vol] 209 mg/dL High 140-200 [facility] Comment on above: Order Comment: PT IS FASTING Result Comment: Chol less than 200 mg/dl low risk Chol 201-239 mg/dl borderline risk Chol 240 mg/dl and greater high risk Performed By: #### L IPID, CMP, CBC, TSH3 wRFLX, [id number] #### [facility] [address] [place] [address] #### ALFRED VASQUEZ, RA #### [facility] , Cholesterol in HDL [Mass/Vol] 43 mg/dL Normal 35-85 [facility] Comment on above: Order Comment: PT IS FASTING Result Comment: HDL CHOL ATP-III CLASSIFICATION Cardiovascular Risk HDL > or equal to 60 mg/dL LOW HDL < 40 mg/dL HIGH Performed By: #### L IPID, CMP, CBC, TSH3 wRFLX, [id number] #### [facility] [address] [place] [address] [place] #### ALFRED VASQUEZ, RA #### [facility] , Cholesterol.total/Poonam sterol in HDL [Mass ratio] 4.9 {ratio} Normal <5.0 [facility] Comment on above: Order Comment: PT IS FASTING Performed By: #### L IPID, CMP, CBC, TSH3 wRFLX, [id number] #### [facility] [address] [place] [address] [place] #### ALFRED CHOICE, RA #### [facility] , LDL Cholesterol,Calculated 155 mg/dL High 0-100 [facility] Comment on above: Order Comment: PT IS FASTING Result Comment: LDL ATP III CLASSIFICATION LDL less than 100 mg/dL Optimal LDL 100-129 mg/dL Near or above optimal LDL 130-159 mg/dL Borderline high LDL 160-189 mg/dL High LDL greater than 189 mg/dL Very high Performed By: #### L IPID, CMP, CBC, TSH3 wRFLX, [id number] #### [facility] [address] [place] [address] [place] #### ALFRED CHOICE, RA #### [facility] , Triglyceride w/Reflex 55 mg/dL Normal 0-149 [facility] Comment on above: Order Comment: PT IS FASTING Result Comment: TRIG ATP III CLASSIFICATION TRIG less than 150 mg/dL Normal TRIG 150-199 mg/dL Borderline high TRIG 200-500 mg/dL High TRIG greater than 500 mg/dL Very high Standard traceable to the Center for Disease Conrtrol and Prevention (CDC) test method. Performed By: #### L IPID, CMP, CBC, TSH3 wRFLX, [id number] #### [facility] [address] [place] [address] [place] #### ALFRED CHOICE, RA #### [facility] , VLDL CHOLESTEROL 11 mg/dL Normal [facility] Comment on above: Order Comment: PT IS FASTING Performed By: #### L IPID, CMP, CBC, TSH3 wRFLX, [id number] #### [facility] [address] [place] [address] [place] #### ALFRED CHOICE, RA #### [facility] , Lymphocytes Auto (Bld) [#/Vo l]Ordered By: Page Magaña on 10-27-2022 Lymphocytes (Bld) [#/Vol] 2.8 10*3/uL 1.00-4.8 [facility] Lymphocytes/100 WBC Auto (Bl d)Ordered By: Page Magaña on 10-27-2022 Lymphocytes/100 WBC (Bld) 30.3 % . [facility] MCH Auto (RBC) [Entitic mass ]Ordered By: Page Magaña on 10-27-2022 MCH (RBC) [Entitic mass] 28.1 pg 24.7-34.3 [facility] MCHC Auto (RBC) [Mass/Vol]Or dered By: Page Magaña on 10-27-2022 MCHC (RBC) [Mass/Vol] 33.3 g/dL 32.0-35.0 [facility] MCV Auto (RBC) [Entitic vol] Ordered By: Page Magaña on 10-27-2022 MCV (RBC) [Entitic vol] 84.6 fL 80-100 [facility] Monocytes Auto (Bld) [#/Vol] Ordered By: Page Magaña on 10-27-2022 Monocytes (Bld) [#/Vol] 0.6 10*3/uL 0.0-0.8 [facility] Monocytes/100 WBC Auto (Bld) Ordered By: Page Magaña on 10-27-2022 Monocytes/100 WBC (Bld) 6.7 % . [facility] Neutrophils Auto (Bld) [#/Vo l]Ordered By: Page Magaña on 10-27-2022 Neutrophils (Bld) [#/Vol] 5.5 10*3/uL 1.8-7.7 [facility] Neutrophils/100 WBC Auto (Bl d)Ordered By: Page Magaña on 10-27-2022 Neutrophils/100 WBC (Bld) 60.8 % . [facility] No Panel InformationOrdered By: Page Magaña on 10-27-2022 Estimated GFR (CKD-EPI) > 60.0 mL/Min [facility] Creatinine Clearance (Chem N/A [facility] Nucleated erythrocytes [Pres ence] in Blood by Automated countOrdered By: Page Magaña on 10-27-2022 Nucleated RBC Auto Ql (Bld) 0.3 /100{WBC} 0-0.5 [facility] Platelet mean volume Auto (B ld) [Entitic vol]Ordered By: Page Magaña on 10-27-2022 Platelet mean volume (Bld) [Entitic vol] 8.9 fL 6.3-10.7 [facility] Platelets Auto (Bld) [#/Vol] Ordered By: Page Magaña on 10-27-2022 Platelets (Bld) [#/Vol] 246 10*3/uL 150-450 [facility] Potassium [Moles/volume] in Serum or PlasmaOrdered By: Page Magaña on 10-27-2022 Potassium [Moles/Vol] 4.3 mmol/L 3.5-5.1 [facility] Protein [Mass/volume] in Ser um or PlasmaOrdered By: Page Magaña on 10-27-2022 Protein [Mass/Vol] 6.5 g/dL 6.4-8.9 [facility] RBC Auto (Bld) [#/Vol]Ordere d By: Page Magaña on 10-27-2022 RBC (Bld) [#/Vol] 4.79 10*6/uL 3.60-5.00 [facility] Rheumatoid Factoron 10-28-19 Rheumatoid Factor <10.0 Normal <14.0 [facility] Comment on above: Result Comment: Perf ormed at: CB - [facility] [address] [id number] [place] Cooper: Ismael Suh PhD, Phone: [phone] Performed By: #### F FN #### [address] Serum or plasma albumin/glob ulin mass ratioOrdered By: Page Magaña on 10-27-2022 Albumin/Globulin [Mass ratio] 1.8 {ratio} [facility] Serum or plasma anion gap de terminationOrdered By: Page Magaña on 10-27-2022 Anion gap [Moles/Vol] 10.6 mmol/L 6.0-15.0 [facility] Serum or plasma high density lipoprotein (HDL) cholesterol measurementOrdered By: Page Magaña on 10-27-2022 Cholesterol in HDL [Mass/Vol] 43 mg/dL 35-85 [facility] Comment on above: HDL CHOL ATP-III CLA SSIFICATION Cardiovascular RiskHDL > or equal to 60 mg/dL LOWHDL < 40 mg/dL HIGH Serum or plasma total choles terol/high density lipoprotein (HDL) cholesterol mass ratOrdered By: Page Magaña on 10-27-2022 Cholesterol.total/Poonam sterol in HDL [Mass ratio] 4.9 {ratio} <5.0 [facility] Sodium [Moles/volume] in Ser um or PlasmaOrdered By: Page Magaña on 10-27-2022 Sodium [Moles/Vol] 138 mmol/L 136-145 [facility] Thyroid Stim Hormone w/Rflxo n 10-27-2022 Thyroid Stim Hormone w/Rflx 0.76 u[iU]/mL Normal 0.45-5.33 [facility] Comment on above: Order Comment: PT IS FASTING Performed By: #### L IPID, CMP, CBC, TSH3 wRFLX, [id number] #### [facility] [address] #### ALFRED CHOICE, RA #### [facility] , Thyrotropin [Units/volume] i n Serum or PlasmaOrdered By: Page Owensmelany on 10-27-2022 TSH Qn 0.76 m[IU]/L 0.45-5.33 [facility] Triglyceride [Mass/volume] i n Serum or PlasmaOrdered By: Page Archana on 10-27-2022 Triglyceride [Mass/Vol] 55 mg/dL 0-[address] [facility] Comment on above: TRIG ATP III CLASSIF ICATIONTRIG less than 150 mg/dL NormalTRIG 150-199 mg/dL Borderline highTRIG 200-500 mg/dL High TRIG greater than 500 mg/dL Very highStandard traceable to the Center for Disease Conrtrol and Prevention (CDC) test method. Urea nitrogen [Mass/volume] in Serum or PlasmaOrdered By: Page Owensmelany on 10-27-2022 Urea nitrogen [Mass/Vol] 12 mg/dL 7-25 [facility] Vitamin D 25 Hydroxy Totalon 10-27-2022 Vitamin D 25 Hydroxy Total 22.1 ng/mL Low 30-100 [facility] Comment on above: Order Comment: Comme [...] practice guideline. JCEM. 2010; 96(7):1911-30. PERFORMED BY: [facility] [address] [place] [id number] PATHOLOGIST [employer] JERRY CASTRO M.D. Performed By: #### F FN #### [place] [id number] [facility] Vitamin D+Metabolites [Mass/ volume] in Serum or PlasmaOrdered By: Page Magaña on 10-27-2022 Vitamin D+Metabolites [Mass/Vol] 22.1 ng/mL 30-100 [facility] Comment on above: VITAMIN D STATUS 25( [place])VITAMIN D RANGE (ng/mL) Deficient <20 Insufficient 20 to <30Sufficient 30 to 100Reference: Helen MF,Lino NC, Gildardo MARTELL, et al. Evaluation,treatment, and prevention of vitamin D deficiency; an Endocrine Society clinical practice guideline. JCEM. 2010; 96(7):1911-30. WBC Auto (Bld) [#/Vol]Ordere d By: Page Magaña on 10-27-2022 WBC (Bld) [#/Vol] 9.1 10*3/uL 3.8-11.6 [facility] Vital Signs Date Time Vital Sign Value Performing Clinician Facility 06-28-2023 05:30-0500 Body temperature 98.8 [degF] DO Sallie Magaña Work Phone: [facility] 06-28-2023 05:30-0500 Diastolic blood pressure 79 mm[Hg] DO Sallie Magaña Work Phone: [facility] 06-28-2023 05:30-0500 Heart rate 80 /min DO Sallie Magaña Work Phone: [facility] 06-28-2023 05:30-0500 Respiratory rate 20 /min DO Sallie Magaña Work Phone: [facility] 06-28-2023 05:30-0500 SaO2% (BldA) [Mass fraction] 98 % DO Sallie Magaña Work Phone: [facility] 06-28-2023 05:30-0500 Systolic blood pressure 121 mm[Hg] DO Sallie Magaña Work Phone: [facility] 06-26-2023 20:49-0500 Body height 152.4 cm DO Sallie Magaña Work Phone: [facility] 06-26-2023 20:49-0500 Body weight 74.38 kg DO Sallie Magaña Work Phone: [facility] 01-24-2023 13:44-0400 Diastolic blood pressure 73 mm[Hg] DO Sallie Magaña Work Phone: [facility] 01-24-2023 13:44-0400 Heart rate 104 /min DO Sallie Magaña Work Phone: [facility] 01-24-2023 13:44-0400 Respiratory rate 16 /min DO Sallie Magaña Work Phone: [facility] 01-24-2023 13:44-0400 SaO2% (BldA) [Mass fraction] 98 % DO Sallie Magaña Work Phone: [facility] 01-24-2023 13:44-0400 Systolic blood pressure 117 mm[Hg] DO Sallie Magaña Work Phone: [facility] 01-24-2023 10:11-0400 Body height 152.4 cm DO Sallie Magaña Work Phone: [facility] 01-24-2023 10:11-0400 Body temperature 98.5 [degF] DO Sallie Magaña Work Phone: [facility] 01-24-2023 10:11-0400 Body weight 67.58 kg DO Sallie Magaña Work Phone: [facility] 11-08-2022 15:30-0400 Body height 147.96 cm Hilario Reynolds Other [facility] Other 11-08-2022 15:30-0400 Body mass index (BMI) [Ratio] 34.23 kg/m2 Hilario Reynolds Other [facility] Other 11-08-2022 15:30-0400 Body weight 74.93 kg Hilario Reynolds Other [facility] Other 11-08-2022 15:30-0400 Diastolic blood pressure 90 mm[Hg] Hilario Reynolds Other [facility] Other 11-08-2022 15:30-0400 Respiratory rate 18 /min Hilario Reyonlds Other [facility] Other 11-08-2022 15:30-0400 SaO2% (BldA) [Mass fraction] 97 % Hilario Reynolds Other [facility] Other 11-08-2022 15:30-0400 Systolic blood pressure 135 mm[Hg] Hilario Reynolds Other [facility] Other Encounters Encounter Date Encounter Type Care Provider Facility Start: 07-04-2023 End: 07-04-2023 ambulatory EDGAR ERWIN Not Available Start: 06-29-2023 ambulatory Alfredo LANDIN Facility:[facility] [place] Start: 06-27-2023 End: 06-28-2023 ambulatory Alfredo LANDIN Facility:[id number] Start: 06-26-2023 End: 06-28-2023 ambulatory Sallie Magaña Facility:[facility] Start: 06-26-2023 End: 06-28-2023 Evaluation and management of inpatient DO Sallie Magaña Work Phone: [facility] Work Phone: Start: 06-26-2023 End: 06-28-2023 observation encounter DO Sallie Magaña Work Phone: [facility] Work Phone: Start: 06-06-2023 End: 06-06-2023 ambulatory PagePrabha Owenslynettegeorgie Facility:[facility] Start: 06-06-2023 End: 06-06-2023 Patient encounter procedure DO Sallie Magaña Work Phone: [facility] [place] Work Phone: Start: 05-29-2023 End: 05-29-2023 ambulatory BRANDON CAMARGO Not Available Start: 05-06-2023 End: 05-06-2023 ambulatory Sallie Magaña Facility:[facility] Start: 05-06-2023 End: 05-06-2023 ambulatory DO Sallie Owenslynettegeorgie Work Phone: [facility] Work Phone: Start: 05-06-2023 End: 05-06-2023 Patient encounter procedure DO Sallie Magaña Work Phone: [facility] [place] Work Phone: Start: 01-24-2023 End: 01-24-2023 Emergency department patient visit DO Sallie Magaña Work Phone: [facility]-Emergency Room Work Phone: Start: 12-20-2022 End: 12-21-2022 ambulatory Hilario Reynolds Facility:[facility] Start: 12-20-2022 Registered Recurring DO Sallie Helms slava Archana Work Phone: [facility]Weight Management Work Phone: Start: 11-08-2022 End: 11-08-2022 ambulatory Hilario Reynolds Other [employer] [facility] [employer] Other Start: 11-08-2022 Nutrition therapy Hilario Reynolds [facility] Start: 10-27-2022 End: 10-27-2022 ambulatory Sallie Magaña Facility:[facility] Start: 10-27-2022 End: 10-27-2022 ambulatory DO Sallie Magaña Work Phone: [facility] Work Phone: Start: 10-27-2022 End: 10-27-2022 Patient encounter procedure DO Sallie Magaña Work Phone: [facility] [place] Work Phone: Procedures Date Procedure Procedure Detail Performing Clinician Start: 06-26-2023 Ultrasonography of b ilateral kidneys DO Sallie Magaña Work Phone: Plan of Treatment Date Care Activity Detail Author Start: 01-02-2024 ambulatory Ambulatory Facility:[facility] Start: 06-28-2023 [facility] Start: 06-26-2023 Referral to urologist [facility] Start: 06-26-2023 Hospital admission [facility] Start: 01-24-2023 Diagnostic ultrasoun d of gravid uterus [facility] Start: 01-24-2023 Ultrasonography of b ilateral kidneys US renal BI [facility] Start: 01-24-2023 US Kidney - bilateral [facility] Start: 01-24-2023 Transvaginal obstetr ic ultrasonography [facility] Cefuroxime free [Mas s/volume] in Serum or Plasma [facility] Patient Education [facility] Work Phone: Patient referral [facility] Work Phone: Rheumatoid factor [Units/volume] in Serum or Plasma [facility] Payers Date Payer Category Payer Self-pay [id number] 2022 Unknown [id number] 1990 Unknown [id number] 1990 Unknown [id number] 1259 1990 Unknown [id number] Medicaid [employer] [id number] Private Health Insurance [facility] [id number] Unknown [id number] Unknown [id number] 531 Unknown [id number] 531 Unknown [id number] 531 Unknown [id number] 531 Unknown [id number] 531 Unknown [id number] 531 Worker's Compensation [facility] Ind [id number] Social History Date Type Detail Facility Start: 05-01-2020 End: 06-27-2023 Tobacco smoking status NHIS Never smoked tobacco (finding) [facility] Start: 1990 Sex Assigned At Female [facility] Sex Assigned At Sex Assigned At Bir th [place] [employer] Other Goals Date Patient Goal Desired Activity /State Consult note 06-27-2023 Note Date & Type Note Facility 06-27-2023 Consult note Note Date/Time June 27, 2023 2:48pm [facility] [address] [place] [id number] Urology Consult Note Signed Patient: Elyssa Smith MR#: [id number] : 1990 Acct:[id number] Age/Sex: 33 / F Adm Date: 3 Loc: 3E Room: 9B0651-2 Type: ADM INOo Attending Dr: Emerald Martinez [...] P documented by Dr. Martinez earlier today [facility] Medical History (Updated 06/27/23 @ 07:15 by [...] % (Auto) 87.1, Lymph % (Auto) 8.3, [place] % (Auto) 4.2, Eos % (Auto)0.2, Baso % (Auto) 0.2, Nucleat RBC Rel Count 0.1, Neut # (Auto) 11.9 H, Lymph #(Auto) 1.1, [place] # (Auto) 0.6, Eos # (Auto) 0.0, Baso # (Auto) 0.0 06/26/23 20:07: Fibronectin Negative 06/26/23 19:20: Urine Opiates Screen Negative, Ur Barbiturates Screen Negative, Ur Phencyclidine Scrn Negative, Ur Amphetamines Screen Negative, U Benzodiazepines Scrn Negative, Urine Cocaine Screen Negative 06/26/23 19:20: Urine Color Yellow, Urine Appearance Clear, Urine pH 6.5, Ur Specific [place] 1.009, Urine Protein Trace H, Urine Glucose [...] basis. Documented By: Alfredo Landin MD 06/27/23 1448 Signed By: <Electronically signed by MD Alfredo Landin> 06/27/23 1676 [facility] Work Phone: History and physical note 06-27-2023 Note Date & Type Note Facility 06-27-2023 History and physi pradip note Note Date/Time June 27, 2023 7:10am [facility] [address] [place] [address] [employer] History & Physical Signed Patient: Elyssa Smith MR#: [id number] : 1990 Acct:[id number] Age/Sex: 33 / F Adm Date: 3 Loc: Room: [address] [place] [address] Type: REG CLI Attending Dr: Emerald Martinez [...] pain is controlledwith IV pain meds. OB [facility] Medical History (Updated 06/27/23 @ 07:15 by [...] 50 mls @ 100 mls/hr IV Q8H [facility] Last Admin: 06/27/23 05:16 Dose: 100 mls/hr Lactated Ringer's (Lactated Ringers) 1,000 mls @ 125 mls/hr IV .Q8H [facility] Stop: 06/25/24 22:44 Last Admin: 06/27/23 05:21 [...] % (Auto) 87.1, Lymph % (Auto) 8.3, [place] % (Auto) 4.2, Eos % (Auto)0.2, Baso % (Auto) 0.2, Nucleat RBC Rel Count 0.1, Neut # (Auto) 11.9 H, Lymph #(Auto) 1.1, [place] # (Auto) 0.6, Eos # (Auto) 0.0, Baso # (Auto) 0.0 06/26/23 20:07: Fibronectin Negative 06/26/23 19:20: Urine Opiates Screen Negative, Ur Barbiturates Screen Negative, Ur Phencyclidine Scrn Negative, Ur Amphetamines Screen Negative, U Benzodiazepines Scrn Negative, Urine Cocaine Screen Negative 06/26/23 19:20: Urine Color Yellow, Urine Appearance Clear, Urine pH 6.5, Ur Specific [place] 1.009, Urine Protein Trace H, Urine Glucose [...] currently. She does see Dr. Erwin in [place] for her care (2) Right kidney stone: Plan: Urology has been consulted- awaiting recommendations (3) Hydronephrosis, right: Plan: Urology has been consulted-awaiting recommendations Documented By: Emerald Martinez DO 06/27/23 07 06 Signed By: <Electronically signed by Emerald Martinez, > 06/27/[address] [place] [address] Ctr Work Phone: Evaluation note 11-08-2022 Note Date & Type Note Facility 11-08-2022 Evaluation note Encounter Date Diagnosis Assessment Notes November, Abnormal weight gain (ICD-10 - R63.5) November, Mixed hyperlipidemia (ICD-10 - E78.2) November, Anxiety (ICD-10 - F41.9) November, Asthma (ICD-10 - J45.909) November, Kidney stones (ICD-10 - N20.0) [facility] Other Evaluation note Note Date & Type Note Facility Evaluation note No assessment information availa ble [facility] Work Phone: Evaluation note Note Date & Type Note Facility Evaluation note Diagnosis Onset Date 26 weeks gestation of acute Hydronephrosis, right acute Right kidney stone acute [facility] Work Phone: History general Narrative - Reported Note Date & Type Note Facility History general Narrative - Reported Type Medical History asthma Surgical History C section x 2 Surgical History kidney stones Surgical History IUD removed Hospitalization History see surgical hx [facility] Other Hospital Discharge instructions Note Date & Type Note Facility Hospital Discharge instructions Additional Instructions 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 Signed Patient: Elyssa Smith MR#: [id number] : 1990 Acct:[id number] Age/Sex: 33 / F Adm Date: 3 Loc: 3E Room: 2P1367-0 Type: ADM INOo Attending Dr: Emerald Martinez [...] signed by MD KIKI BEAL> 06/28/23 0804 [facility] Work Phone: Chief Complaint and Reason for [...] Date/ Time Advance Directives No September 21 8:37pm Summary Purpose Family History No Family [...] DO Primary Care Provider Active Sarmad Luque DO Emergency Provider Active Donovan Brooks MD RES Active Team Status: Inactive Member Role Status Dates Sallie Magaña DO Primary Care Provider Active Latrice Sepulveda MD Attending Provider Active Team Status: Inactive Member Role Status Dates Sallei Magaña , Primary Care Provider Active Emerald Martinez DO Admit Provider, Attending Provide r Active Goals (unrecognized section and content) Goals may be documented in a n alternate sectionNo InformationGoals may be documented in an alternate sectionGoals may be documented in an alternate sectionGoals may be documented in an alternate section REASON FOR VISIT (unrecogniz ed section and content) Initial [facility] INFORMATION SOURCE (unrecogn ized section and content) DATE CREATED AUTHOR 07/06/2023 [facility] DATE CREATED AUTHOR AUTHOR'S ORGANIZ ATION 07/07/2023 [facility] DATE CREATED AUTHOR AUTHOR'S ORGANIZ ATION 07/13/2023 [facility] FOR RECORDS PERTAINING TO PATIENTS WHO [...] BE BASED ON THE PRIMARY CLINICAL RECORDS. [employer] [facility]. provides no warranty or guarantee of the accuracy or completeness of information in this document.
[2023-07-14 08:25] LABS: Glucose Fasting 96 mg/dL (74-106)
[2023-07-14 11:34] LABS: Glucose 1 Hour 170 mg/dL
[2023-07-14 12:01] LABS: Glucose 2 Hour 147 mg/dL
[2023-07-14 12:01] LABS: Glucose 3 Hour 120 mg/dL
== END 2023-07-14 07:56 | disposition home or self-care (01) ==
LOC: LAB 07:55
PROVIDERS: Visit Provider Obstetrics & Gynecology
DX: Z13.1 Encounter for screening for diabetes mellitus (principal)
CPT/HCPCS: 36415; 82951; 82952

== ENCOUNTER 2023-07-17 08:03 | Outpatient (OUT) | payer OTHER, SELFPAY ==
--- NOTE | 2023-07-17 08:04 | US_ITS ---
[address] [address] Patient Name: CARMEN DE LA CRUZ MRN: [id number] date: 1990 Sex: F Assigned Patient Location: US Current Patient Location: US Accession/Order Number: [id number] Exam Date: 07/17/2023 08:07 Report Date: 07/17/2023 09:06 At the request of: EDGAR FERRELL Procedure: US OB growth EXAMINATION: US OB growth HISTORY: HISTORY OF PRE TERM DELIVERY COMPARISON: No relevant comparison available. FINDINGS: Heart Rate: 147.0 bpm Amniotic Fluid Volume: 16.5 cm Number: 1.0 Position: Cephalic presentation, longitudinal lie Maximum Vertical Pocket: 4.8 cm cm 4.5 cm cm 3.5 cm cm 3.8 cm cm BIOMETRY: BPD: 7.5 cm cm; 29 weeks 6 days; 63% HC: 27.0 cmcm; 29 weeks 3 days , 26% AC: 24.7 cm cm; 29 weeks 0 days, 37% FL: 5.2 cm cm; 27 weeks 6 days; 8.3 % % EFW: 1269.6 grams, 2 lbs. 13 oz., 23% FL/AC: 21.2 FL/BPD: 70.1 HC/AC: 1.1 GESTATIONAL AGE: Age by EDC: 29 weeks 1 days PHILIP by EDC: 10/01/2023 Age by US: 29 weeks 0 days PHILIP by US: 10/02/2023 US/US OB growth IMPRESSION: Normal interval growth Electronically authenticated by: MARTY KO Date: 07/17/2023 09:06
--- OUTSIDE RECORDS SUMMARY | 2023-07-17 08:07 | XMS_ITS | CCD ---
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 Name Role Phone DO Sallie Magaña Primary Care Provider DO Sallie Magaña Attending Provider Hilario Reynolds Unavailable DO Sallie Magaña Primary Care Provider MD Hilario Reynolds Attending Provider DO Sarmad Luque Emergency Provider [phone] DO Sallie Magaña Primary Care Provider DO [...] Magaña Admitting Unavailable Hilario Reynolds Admitting Unavailable Hilaroi Reynolds Attending Unavailable Sallie Magaña Primary Care [...] Translations: [dicyclomine] Drug Allergy 0 Migraine, Unknown [facility] (6 sources) Fish Oils; Translations: [fish oil] Drug Allergy 0 Hives [facility] (6 sources) Gluten; Translations: [gluten] Propensity to adverse reactions 0 Nausea [facility] (1 source) DHA Propensity to adverse reactions Unknown [facility] Other Medications Current Medications Medication Drug Class(es) [...] Test Name Value Interpretation Reference Range Facility [facility] 07-14-2023 Lab Reports [id number]#1 .00TIFF Normal [facility] Insurance Correspondence Off iceon 06-30-2023 Insurance Correspondence Office [id number]# 1.00TIFF Normal [facility] Report[facility] 06-30-2023 Lab Reports [id number]# 1.00TIFF Normal [facility] RAD - Ultrasound Reporton RAD - Ultrasound Report [id number]#1 .00TIFF Normal [facility] Report[facility] 06-29-2023 Lab Reports [id number]#1 .00TIFF Normal [facility] Consultation Noteon 06-28-20 Consultation Note [id number]#1 .00TIFF Normal [facility] Complete Blood Count Auto Di ffon 06-27-2023 Basophils (Bld) [#/Vol] 0.0 10*3/uL Normal 0.0-0.2 [facility] Comment on above: Result Comment: PERF ORMED BY: [facility] [address] [place] [id number] PATHOLOGIST CONSERVATION WORKER JERRY CASTRO M.D. Performed By: #### C BC, CMP ####[facility] [address] [place] [id number] [place] Basophils/100 WBC (Bld) 0.2 % Normal . [facility] Comment on above: Performed By: #### C BC, CMP ####[facility] [address] [place] [id number] [facility] Eosinophils (Bld) [#/Vol] 0.0 10*3/uL Normal 0.0-0.45 [facility] Comment on above: Performed By: #### C SAPPHIRE, CMP ####[address] Eosinophils/100 WBC (Bld) 0.2 % Normal . [facility] Comment on above: Performed By: #### C BC, CMP ####[address] Erythrocyte distribution width (RBC) [Ratio] 13.4 % Normal 11.9-15.3 [facility] Comment on above: Performed By: #### C SAPPHIRE, CMP ####[address] Hematocrit (Bld) [Volume fraction] 33.5 % Low 34.0-46.4 [facility] Comment on above: Performed By: #### C SAPPHIRE, CMP ####[address] Hemoglobin (Bld) [Mass/Vol] 11.3 g/dL Low 11.8-15.4 [facility] Comment on above: Performed By: #### C SAPPHIRE, CMP ####[address] Lymphocytes (Bld) [#/Vol] 1.1 10*3/uL Normal 1.00-4.8 [facility] Comment on above: Performed By: #### C SAPPHIRE, CMP ####[address] Lymphocytes/100 WBC (Bld) 8.3 % Normal . [facility] Comment on above: Performed By: #### C BC, CMP ####[place] [id number] [facility] MCH (RBC) [Entitic mass] 29.0 pg Normal 24.7-34.3 [facility] Comment on above: Performed By: #### C BC, CMP ####[place] [id number] [facility] MCV (RBC) [Entitic vol] 86.2 fL Normal 80-[address] [facility] Comment on above: Performed By: #### C BC, CMP ####[address] [address] [facility] Mean Corpuscular HGB Conc 33.7 g/dL Normal 32.0-35.0 [facility] Comment on above: Performed By: #### C BC, CMP ####[address] [address] [facility] Monocytes (Bld) [#/Vol] 0.6 10*3/uL Normal 0.0-0.8 [facility] Comment on above: Performed By: #### C BC, CMP ####[place] [id number] [facility] Monocytes/100 WBC (Bld) 4.2 % Normal . [facility] Comment on above: Performed By: #### C BC, CMP ####[place] [id number] [facility] Neutrophils (Bld) [#/Vol] 11.9 10*3/uL High 1.8-7.7 [facility] Comment on above: Performed By: #### C BC, CMP ####[place] [id number] [facility] Neutrophils/100 WBC (Bld) 87.1 % Normal . [facility] Comment on above: Performed By: #### C BC, CMP ####[address] [address] [facility] NRBC% 0.1 /100{WBC} Normal 0-0.5 [facility] Comment on above: Performed By: #### C BC, CMP ####[place] [id number] [facility] Platelet mean volume (Bld) [Entitic vol] 9.8 fL Normal 6.3-10.7 [facility] Comment on above: Performed By: #### C BC, CMP ####[address] [address] [facility] Platelets (Bld) [#/Vol] 174 10*3/uL Normal 150-450 [facility] Comment on above: Performed By: #### C BC, CMP ####[place] [id number] [facility] RBC (Bld) [#/Vol] 3.89 10*6/uL Normal 3.60-5.00 [facility] Comment on above: Performed By: #### C BC, CMP ####[place] [id number] [facility] WBC (Bld) [#/Vol] 13.6 10*3/uL High 3.8-11.6 [facility] Comment on above: Performed By: #### C BC, CMP ####[place] [id number] [facility] Comprehensive Metabolic Pane mauricio 06-27-2023 Albumin [Mass/Vol] 3.4 g/dL Low 3.5-5.7 [facility] Comment on above: Performed By: #### C BC, CMP ####[place] [id number] [facility] Albumin/Globulin [Mass ratio] 1.6 {ratio} Normal [facility] Comment on above: Performed By: #### C BC, CMP ####[place] [id number] [facility] ALP [Catalytic activity/Vol] 88 U/L Normal 34-104 [facility] Comment on above: Performed By: #### C BC, CMP ####[place] [id number] [facility] ALT [Catalytic activity/Vol] 17 U/L Normal 7-52 [facility] Comment on above: Performed By: #### C BC, CMP ####[place] [id number] [facility] Anion gap [Moles/Vol] 12.5 mmol/L Normal 6.0-15.0 [facility] Comment on above: Performed By: #### C BC, CMP ####[place] [id number] [facility] AST [Catalytic activity/Vol] 14 U/L Normal 13-39 [facility] Comment on above: Performed By: #### C BC, CMP ####[place] [address] [place] [address] [facility] Bilirubin [Mass/Vol] 0.3 mg/dL Normal 0.3-1.0 [facility] Comment on above: Performed By: #### C BC, CMP ####[place] [address] [place] [id number] [facility] Calcium [Mass/Vol] 8.2 mg/dL Low 8.6-10.3 [facility] Comment on above: Performed By: #### C BC, CMP ####[place] [id number] [facility] Chloride [Moles/Vol] 105 mmol/L Normal 98-107 [facility] Comment on above: Performed By: #### C BC, CMP ####[place] [address] [place] [id number] [facility] CO2 [Moles/Vol] 23.8 mmol/L Normal 21.0-31.0 [facility] Comment on above: Performed By: #### C BC, CMP ####[place] [id number] [facility] Creatinine [Mass/Vol] 0.52 mg/dL Low 0.60-1.20 [facility] Comment on above: Performed By: #### C BC, CMP ####[place] [id number] [place] Creatinine Clr Calc Pharmacy 138.60 [facility] Comment on above: Result Comment: PERF ORMED BY: [facility] [address] [place] [address] PATHOLOGIST CONSERVATION WORKER JERRY CASTRO M.D. Performed By: #### C BC, CMP ####[place] [address] [place] [id number] [place] GFR/1.73 sq M.predicted MDRD (S/P/Bld) [Vol rate/Area] mL/min/{1.73_m2} [facility] Comment on above: Performed By: #### C BC, CMP ####[facility] [place] [address] [facility] Globulin (S) [Mass/Vol] 2.1 g/dL Normal [facility] Comment on above: Performed By: #### C BC, CMP ####[facility] [place] [address] [facility] Glucose [Mass/Vol] 124 mg/dL High 70-100 [facility] Comment on above: Result Comment: [place] Glucose Reference Range is dependent on time and content of last meal. Glucose of more than 200 mg/dL in a nonstressed, ambulatory subject supports the diagnosis of Diabetes Mellitus. ADA recommended reference range Performed By: #### C BC, CMP ####[facility] [place] [address] [facility] Potassium [Moles/Vol] 3.3 mmol/L Low 3.5-5.1 [facility] Comment on above: Performed By: #### C BC, CMP ####[place] [id number] [facility] Protein [Mass/Vol] 5.5 g/dL Low 6.4-8.9 [facility] Comment on above: Performed By: #### C BC, CMP ####[place] [id number] [facility] Sodium [Moles/Vol] 138 mmol/L Normal 136-145 [facility] Comment on above: Performed By: #### C BC, CMP ####[facility] [place], [place] [address] [facility] Urea nitrogen [Mass/Vol] 6 mg/dL Low 7-25 [facility] Comment on above: Performed By: #### C BC, CMP ####[address] [address] [facility] US renal BIon 06-27-2023 US renal BI [facility] Main [place] [address] [place] [id number] Ultrasound Report Signed Patient: Elyssa Smith MR#: [id number] : 1990 Acct:[id number] Age/Sex: 33 / F ADM Date: 06/27/23 Loc: Room: 2Q0715-3 Type: ADM INOo Attending Dr: Emerald Martinez [...] Kathleen Vaca M.D.06/27/2023 7:44 AM Dictation Location: [place] [address] Tech: Eryn Blaise Transcribed By: SILVINA 06/27/2344 Dictated By: Kathleen Vaca MD 06/27/2342 Signed By: 06/27/2344 Normal [facility] Alanine aminotransferase [En zymatic activity/volume] in Serum or PlasmaOrdered By: Emerald Martinez on 06-26-2023 ALT [Catalytic activity/Vol] 17 U/L 7-52 [facility] Albumin [Mass/volume] in Ser um or Plasma by Bromocresol green (BCG) dye binding methoOrdered By: Emerald Martinez on 06-26-2023 Albumin BCG dye [Mass/Vol] 3.4 g/dL 3.5-5.7 [facility] Alkaline phosphatase [Enzyma tic activity/volume] in Serum or PlasmaOrdered By: Emerald Martinez on 06-26-2023 ALP [Catalytic activity/Vol] 88 U/L 34-104 [facility] Amphetamine Screen Ql (U)Ord ered By: Emerald Martinez on 06-26-2023 Amphetamines Ql (U) Negative Negative [facility] Aspartate aminotransferase [ Enzymatic activity/volume] in Serum or PlasmaOrdered By: Emerald Martinez on 06-26-2023 AST [Catalytic activity/Vol] 14 U/L 13-39 [facility] Automated epithelial cells c ount in urine sediment (number/area)Ordered By: Emerald Martinez on 06-26-2023 Epithelial cells Auto (Urine sed) [#/Area] 10-19 [HPF] 0-2 [facility] Automated erythrocytes count in urine sediment (number/area)Ordered By: Emerald Martinez on 06-26-2023 RBC Auto (Urine sed) [#/Area] 10-19 [HPF] 0-4 [facility] Automated leukocytes count i n urine sediment (number/area)Ordered By: Emerald Martinez on 06-26-2023 WBC Auto (Urine sed) [#/Area] 0-1 [HPF] 0-4 [facility] Automated urine hyaline cast s count (number/volume)Ordered By: Emerald Martinez on 06-26-2023 Hyaline casts Auto (U) [#/Vol] None seen [LPF] 0-1 [facility] Barbiturates [Presence] in U rine by Screen methodOrdered By: Emerald Martinez on 06-26-2023 Barbiturates Screen Ql (U) Negative Negative [facility] Basophils Auto (Bld) [#/Vol] Ordered By: Emerald Martinez on 06-26-2023 Basophils (Bld) [#/Vol] 0.0 10*3/uL 0.0-0.2 [facility] Basophils/100 WBC Auto (Bld) Ordered By: Emerald Martinez on 06-26-2023 Basophils/100 WBC (Bld) 0.2 % . [facility] Benzodiazepines Screen Ql (U )Ordered By: Emerald Martinez on 06-26-2023 Benzodiazepines Ql (U) Negative Negative Fi [facility] Benzoylecgonine [Presence] i n Urine by Screen methodOrdered By: Emerald Martinez on 06-26-2023 Benzoylecgonine Screen Ql (U) Negative Negative [facility] Bilirubin Test strip Ql (U)O rdered By: Emerald Martinez on 06-26-2023 Bilirubin Ql (U) Negative Negative [facility] Bilirubin.total [Mass/volume ] in Serum or PlasmaOrdered By: Emerald Martinez on 06-26-2023 Bilirubin [Mass/Vol] 0.3 mg/dL 0.3-1.0 [facility] Calcium [Mass/volume] in Ser um or PlasmaOrdered By: Emerald Martinez on 06-26-2023 Calcium [Mass/Vol] 8.2 mg/dL 8.6-10.3 [facility] Carbon dioxide, total [Moles /volume] in Serum or PlasmaOrdered By: Emerald Martinez on 06-26-2023 CO2 [Moles/Vol] 23.8 mmol/L 21.0-31.0 [facility] Chloride [Moles/volume] in S gris or PlasmaOrdered By: Emerald Martinez on 06-26-2023 Chloride [Moles/Vol] 105 mmol/L 98-107 [facility] Color Auto (U)Ordered By: Graciela nicholaskathe Martinez on 06-26-2023 Color (U) Yellow Yellow [facility] Creatinine [Mass/volume] in Serum or PlasmaOrdered By: Emerald Martinez on 06-26-2023 Creatinine [Mass/Vol] 0.52 mg/dL 0.60-1.20 [facility] Dipstick and Microscopicon 1 08-27-2022 Appearance (U) Clear Normal Clear [facility] Comment on above: Order Comment: Name Collection Type:: Voided Performed By: #### O BUDS, ADDONUAPLUS #### [facility] [address] [place] [address] [place] Bacteria,Urine Rare High None Seen [facility] Comment on above: Order Comment: Name Collection Type:: Voided Performed By: #### O BUDS, ADDONUAPLUS #### [facility] [address] [place] [id number] [place] Bilirubin,Urine Negative Normal Negative [facility] Comment on above: Order Comment: Name Collection Type:: Voided Performed By: #### O BUDS, ADDONUAPLUS #### [facility] [address] [place] [address] [place] Color (U) Yellow Normal Yellow [facility] Comment on above: Order Comment: Name Collection Type:: Voided Performed By: #### O BUDS, ADDONUAPLUS #### [facility] [address] [place] [address] [place] Glucose Ql (U) Normal Normal Normal [facility] Comment on above: Order Comment: Name Collection Type:: Voided Performed By: #### O BUDS, ADDONUAPLUS #### [facility] [address] [place] [address] [place] Hyaline Casts,Urine None Seen Normal 0-1 [facility] Comment on above: Order Comment: Name Collection Type:: Voided Performed By: #### O BUDS, ADDONUAPLUS #### [place] [address] [place] Ketones Ql (U) Negative Normal Negative [facility] Comment on above: Order Comment: Name Collection Type:: Voided Performed By: #### O BUDS, ADDONUAPLUS #### [facility] [address] [place] [address] [place] Leukocyte esterase Test strip Ql (U) Negative Normal Negative [facility] Comment on above: Order Comment: Name Collection Type:: Voided Performed By: #### O BUDS, ADDONUAPLUS #### [facility] [address] [place] [address] [place] Nitrite,Urine Negative Normal Negative [facility] Comment on above: Order Comment: Name Collection Type:: Voided Performed By: #### O BUDS, ADDONUAPLUS #### [facility] [address] [place] [address] [place] Occult Blood,Urine 3+ High Negative [facility] Comment on above: Order Comment: Name Collection Type:: Voided Result Comment: PERF ORMED BY: [place] [address] PATHOLOGIST CONSERVATION WORKER JERRY CASTRO M.D. Performed By: #### O BUDS, ADDONUAPLUS #### [address] pH (U) 6.5 [pH] Normal 5.0-9.0 [facility] Comment on above: Order Comment: Name Collection Type:: Voided Performed By: #### O BUDS, ADDONUAPLUS #### [address] Protein,Urine Trace High Negative [facility] Comment on above: Order Comment: Name Collection Type:: Voided Performed By: #### O BUDS, ADDONUAPLUS #### [address] RBC,Urine 10-19 High 0-4 [facility] Comment on above: Order Comment: Name Collection Type:: Voided Performed By: #### O BUDS, ADDONUAPLUS #### [address] Specificy [place],Urine 1.009 Normal 1.001-1.030 [facility] Comment on above: Order Comment: Name Collection Type:: Voided Performed By: #### O BUDS, ADDONUAPLUS #### [place] [address] [place] Squamous Epithelial Cell,Urine 10-19 High 0-2 [facility] Comment on above: Order Comment: Name Collection Type:: Voided Performed By: #### O BUDS, ADDONUAPLUS #### [address] Urobilinogen,Urine Normal Normal Normal [facility] Comment on above: Order Comment: Name Collection Type:: Voided Performed By: #### O BUDS, ADDONUAPLUS #### [address] WBC LM.HPF (Urine sed) [#/Area] 0 /[HPF] Normal 0-4 [facility] Comment on above: Order Comment: Name Collection Type:: Voided Performed By: #### O BUDS, ADDONUAPLUS #### [address] Yeast,Urine Rare Critically abnormal None Seen [facility] Comment on above: Order Comment: Name Collection Type:: Voided Result Comment: PERF ORMED BY: [place] [address] PATHOLOGIST CONSERVATION WORKER JERRY CASTRO M.D. Performed By: #### O BUDS, ADDONUAPLUS #### [facility] [address] [place] [address] Eosinophils Auto (Bld) [#/Vo l]Ordered By: Emerald Martinez on 06-26-2023 Eosinophils (Bld) [#/Vol] 0.0 10*3/uL 0.0-0.45 [facility] Eosinophils/100 WBC Auto (Bl d)Ordered By: Emerald Martinez on 06-26-2023 Eosinophils/100 WBC (Bld) 0.2 % . [facility] Erythrocyte distribution wid th Auto (RBC) [Ratio]Ordered By: Emerald Martinez on 06-26-2023 Erythrocyte distribution width (RBC) [Ratio] 13.4 % 11.9-15.3 [facility] Fibronectinon 06-26-20 23 Fibronectin Negative Normal Negative [facility] Comment on above: Order Comment: Comme nt patients 22 - 34 6/7 weeks prior to vaginal exam Result Comment: PERF ORMED BY: [place] [address] PATHOLOGIST CONSERVATION WORKER JERRY CASTRO M.D. Performed By: #### F FN #### [facility] [address] [place] [address] fibronectinOrdered By: Emerald Martinez on 06-26-2023 Fibronectin. (Vag fld) [Mass/Vol] Negative Negative [facility] Globulin Calc (S) [Mass/Vol] Ordered By: Emerald Martinez on 06-26-2023 Globulin (S) [Mass/Vol] 2.1 g/dL [facility] Glucose [Mass/volume] in Ser um or PlasmaOrdered By: Emerald Martinez on 06-26-2023 Glucose [Mass/Vol] 124 mg/dL 70-100 [facility] Comment on above: ADA recommended refe rence rangeRandom Glucose Reference Range is dependent on time and content of last meal. Glucose of more than 200 mg/dL in a nonstressed, ambulatory subject supports the diagnosis of Diabetes Mellitus. Hematocrit Auto (Bld) [Volum e fraction]Ordered By: Emerald Martinez on 06-26-2023 Hematocrit (Bld) [Volume fraction] 33.5 % 34.0-46.4 [facility] Hemoglobin [Mass/volume] in BloodOrdered By: Emerald Martinez on 06-26-2023 Hemoglobin (Bld) [Mass/Vol] 11.3 g/dL 11.8-15.4 [facility] Ketones Auto test strip (U) [Mass/Vol]Ordered By: Emerald Martinez on 06-26-2023 Ketones (U) [Mass/Vol] Negative Negative Fi [facility] Leukocytes [#/volume] correc mague for nucleated erythrocytes in Blood by Automated counOrdered By: Emerald Martinez on 06-26-2023 WBC corrected for nucl RBC Auto (Bld) [#/Vol] 13.6 10*3/uL 3.8-11.6 [facility] Lymphocytes Auto (Bld) [#/Vo l]Ordered By: Emerald Martinez on 06-26-2023 Lymphocytes (Bld) [#/Vol] 1.1 10*3/uL 1.00-4.8 [facility] Lymphocytes/100 WBC Auto (Bl d)Ordered By: Emearld Martinez on 06-26-2023 Lymphocytes/100 WBC (Bld) 8.3 % . [facility] MCH Auto (RBC) [Entitic mass ]Ordered By: Emerald Martinez on 06-26-2023 MCH (RBC) [Entitic mass] 29.0 pg 24.7-34.3 [facility] MCHC Auto (RBC) [Mass/Vol]Or dered By: Emerald Martinez on 06-26-2023 MCHC (RBC) [Mass/Vol] 33.7 g/dL 32.0-35.0 [facility] MCV Auto (RBC) [Entitic vol] Ordered By: Emerald Martinez on 06-26-2023 MCV (RBC) [Entitic vol] 86.2 fL 80-[address] [facility] Monocytes Auto (Bld) [#/Vol] Ordered By: Emerald Martinez on 06-26-2023 Monocytes (Bld) [#/Vol] 0.6 10*3/uL 0.0-0.8 [facility] Monocytes/100 WBC Auto (Bld) Ordered By: Emerald Martinez on 06-26-2023 Monocytes/100 WBC (Bld) 4.2 % . [facility] Neutrophils Auto (Bld) [#/Vo l]Ordered By: Emerald Martinez on 06-26-2023 Neutrophils (Bld) [#/Vol] 11.9 10*3/uL 1.8-7.7 [facility] Neutrophils/100 WBC Auto (Bl d)Ordered By: Emerald Martinez on 06-26-2023 Neutrophils/100 WBC (Bld) 87.1 % . [facility] Nitrite Test strip Ql (U)Ord ered By: Emerald Martinez on 06-26-2023 Nitrite Ql (U) Negative Negative [facility] No Panel InformationOrdered By: Emerald Martinez on 06-26-2023 Estimated GFR (CKD-EPI) > 60.0 mL/Min [facility] Creatinine Clearance (Chem 138.60 [facility] Nucleated erythrocytes [Pres ence] in Blood by Automated countOrdered By: Emerlad Martinez on 06-26-2023 Nucleated RBC Auto Ql (Bld) 0.1 /100{WBC} 0-0.5 [facility] OB Urine Drug Screen (NO THC )on 06-26-2023 Amphetamine Screen,Urine Negative Normal Negative [facility] Comment on above: Performed By: #### O BUDS, ADDONUAPLUS #### [facility] [address] [place] [address] [place] Barbiturate Screen,Urine Negative Normal Negative [facility] Comment on above: Performed By: #### O BUDS, ADDONUAPLUS #### [facility] [address] [place] [address] [place] Benzodiazepines Screen,Urine Negative Normal Negative [facility] Comment on above: Performed By: #### O BUDS, ADDONUAPLUS #### [address] Cocaine Screen,Urine Negative Normal Negative [facility] Comment on above: Performed By: #### O BUDS, ADDONUAPLUS #### [facility] [address] Opiate Screen,Urine Negative Normal Negative [facility] Comment on above: Performed By: #### O BUDS, ADDONUAPLUS #### [address] Phencyclidine Screen, Urine Negative Normal Negative [facility] Comment on above: Result Comment: Thes e are unconfirmed results and should not be used for legal purposes. Drug Cut-Off Concentration: AMPH 1000 ng/mL DORIS 200 ng/mL LEANNE 200 ng/mL COCM 300 ng/mL OP 300 ng/mL PCP 25 ng/mL PERFORMED BY: [place] [address] PATHOLOGIST CONSERVATION WORKER JERRY CASTRO M.D. Performed By: #### O BUDS, ADDONUAPLUS #### [address] Opiates [Presence] in Urine by Screen methodOrdered By: Emerald Martinez on 06-26-2023 Opiates Screen Ql (U) Negative Negative [facility] Phencyclidine Screen Ql (U)O rdered By: Emerald Martinez on 06-26-2023 Phencyclidine Ql (U) Negative Negative [facility] Comment on above: These are unconfirme d results and should not be used for legal purposes. Drug Cut-Off Concentration: AMPH 1000 ng/mL DORIS 200 ng/mL LEANNE 200 ng/mL COCM 300 ng/mL OP 300 ng/mL PCP 25 ng/mL Platelet mean volume Auto (B ld) [Entitic vol]Ordered By: Emerald Martinez on 06-26-2023 Platelet mean volume (Bld) [Entitic vol] 9.8 fL 6.3-10.7 [facility] Platelets Auto (Bld) [#/Vol] Ordered By: Emerald Martinez on 06-26-2023 Platelets (Bld) [#/Vol] 174 10*3/uL 150-450 [facility] Potassium [Moles/volume] in Serum or PlasmaOrdered By: Emerald Martinez on 06-26-2023 Potassium [Moles/Vol] 3.3 mmol/L 3.5-5.1 [facility] Protein Auto test strip (U) [Mass/Vol]Ordered By: Emerald Martinez on 06-26-2023 Protein (U) [Mass/Vol] Trace mg/dL Negative [facility] Protein [Mass/volume] in Ser um or PlasmaOrdered By: Emerald Martinez on 06-26-2023 Protein [Mass/Vol] 5.5 g/dL 6.4-8.9 [facility] RBC Auto (Bld) [#/Vol]Ordere d By: Emerald Martinez on 06-26-2023 RBC (Bld) [#/Vol] 3.89 10*6/uL 3.60-5.00 [facility] Serum or plasma albumin/glob ulin mass ratioOrdered By: Emerald Martinez on 06-26-2023 Albumin/Globulin [Mass ratio] 1.6 {ratio} [facility] Serum or plasma anion gap de terminationOrdered By: Emerald Martinez on 06-26-2023 Anion gap [Moles/Vol] 12.5 mmol/L 6.0-15.0 [facility] Sodium [Moles/volume] in Ser um or PlasmaOrdered By: Emerald Martinez on 06-26-2023 Sodium [Moles/Vol] 138 mmol/L 136-145 [facility] Specific gravity Auto test s trip (U) [Rel density]Ordered By: Emerald Martinez on 06-26-2023 Specific gravity (U) [Rel density] 1.009 1.001-1.030 [facility] Urea nitrogen [Mass/volume] in Serum or PlasmaOrdered By: Emerald Martinez on 06-26-2023 Urea nitrogen [Mass/Vol] 6 mg/dL 7-25 [facility] Urine bacteria detection by automated methodOrdered By: Emerald Martinez on 06-26-2023 Bacteria Auto Ql (U) Rare None Seen [facility] Urine clarity by refractomet ry automatedOrdered By: Emerald Martinez on 06-26-2023 Clarity Refractometry automated (U) Clear Clear [facility] Urine glucose measurement by automated test strip (mass/volume)Ordered By: Emerald Martinez on 06-26-2023 Glucose Auto test strip (U) [Mass/Vol] Normal mg/dL Normal [facility] Urine hemoglobin detection b y automated test stripOrdered By: Emerald Martinez on 06-26-2023 Hemoglobin Auto test strip Ql (U) 3+ Negative [facility] Urine leukocyte esterase det ection by automated test stripOrdered By: Emerald Martinez on 06-26-2023 Leukocyte esterase Auto test strip Ql (U) Negative Negative [facility] Urobilinogen Auto test strip (U) [Mass/Vol]Ordered By: Emerald Martinez on 06-26-2023 Urobilinogen (U) [Mass/Vol] Normal mg/dL Normal [facility] WBC Auto (Bld) [#/Vol]Ordere d By: Emerald Martinez on 06-26-2023 WBC (Bld) [#/Vol] 13.6 10*3/uL 3.8-11.6 [facility] Yeast detection in urine sed iment by light microscopyOrdered By: Emerald Martinez on 06-26-2023 Yeast LM Ql (Urine sed) Rare [HPF] None Seen [facility] pH Auto test strip (U)Ordere d By: Emerald Martinez on 06-26-2023 pH (U) 6.5 [pH] 5.0-9.0 [facility] 1,25 Dihydroxy Vit D Calcitr olon 06-06-2023 1,25 Dihydroxy Vit D Calcitrol 123.0 pg/mL High 24.8-81.5 [facility] Comment on above: Result Comment: Perf ormed at: BN - [facility] [address] [id number] Learning Officer: Dinora Alvarenga MD, Phone: [phone] PERFORMED BY: [facility] [address] [place] [address] PATHOLOGIST CONSERVATION WORKER JERRY CASTRO M.D. Performed By: #### F #### [facility] [address] Alanine aminotransferase [En zymatic activity/volume] in Serum or PlasmaOrdered By: Latrice Sepulveda on 06-06-2023 ALT [Catalytic activity/Vol] 19 U/L 7-52 [facility] Albumin [Mass/volume] in Ser um or Plasma by Bromocresol green (BCG) dye binding methoOrdered By: Latrice Sepulveda on 06-06-2023 Albumin BCG dye [Mass/Vol] 3.5 g/dL 3.5-5.7 [facility] Alkaline phosphatase [Enzyma tic activity/volume] in Serum or PlasmaOrdered By: Latrice Sepulveda on 06-06-2023 ALP [Catalytic activity/Vol] 84 U/L 34-104 [facility] Aspartate aminotransferase [ Enzymatic activity/volume] in Serum or PlasmaOrdered By: Latrice Sepulveda on 06-06-2023 AST [Catalytic activity/Vol] 16 U/L 13-39 [facility] Bilirubin.total [Mass/volume ] in Serum or PlasmaOrdered By: Latrice Sepulveda on 06-06-2023 Bilirubin [Mass/Vol] 0.3 mg/dL 0.3-1.0 [facility] Calcium [Mass/volume] in Ser um or PlasmaOrdered By: Latrice Sepulveda on 06-06-2023 Calcium [Mass/Vol] 8.6 mg/dL 8.6-10.3 [facility] Carbon dioxide, total [Moles /volume] in Serum or PlasmaOrdered By: Latrice Sepulveda on 06-06-2023 CO2 [Moles/Vol] 24.8 mmol/L 21.0-31.0 [facility] Chloride [Moles/volume] in S gris or PlasmaOrdered By: Latrice Sepulveda on 06-06-2023 Chloride [Moles/Vol] 107 mmol/L 98-107 [facility] Comprehensive Metabolic Pane mauricio 06-06-2023 Albumin [Mass/Vol] 3.5 g/dL Normal 3.5-5.7 [facility] Comment on above: Performed By: #### F FN #### [facility] [address] [place] [address] Albumin/Globulin [Mass ratio] 1.5 {ratio} Normal [facility] Comment on above: Performed By: #### F FN #### [address] ALP [Catalytic activity/Vol] 84 U/L Normal 34-104 [facility] Comment on above: Performed By: #### F FN #### [address] ALT [Catalytic activity/Vol] 19 U/L Normal 7-52 [facility] Comment on above: Performed By: #### F FN #### [address] Anion gap [Moles/Vol] 9.9 mmol/L Normal 6.0-15.0 [facility] Comment on above: Performed By: #### F FN #### [facility] [address] [place] [address] AST [Catalytic activity/Vol] 16 U/L Normal 13-39 [facility] Comment on above: Performed By: #### F FN #### [address] Bilirubin [Mass/Vol] 0.3 mg/dL Normal 0.3-1.0 [facility] Comment on above: Performed By: #### F FN #### [address] Calcium [Mass/Vol] 8.6 mg/dL Normal 8.6-10.3 [facility] Comment on above: Performed By: #### F FN #### [place] [address] [place] Chloride [Moles/Vol] 107 mmol/L Normal 98-107 [facility] Comment on above: Performed By: #### F FN #### [place] [address] [place] CO2 [Moles/Vol] 24.8 mmol/L Normal 21.0-31.0 [facility] Comment on above: Performed By: #### F FN #### [address] Creatinine [Mass/Vol] 0.45 mg/dL Low 0.60-1.20 [facility] Comment on above: Performed By: #### F FN #### [place] [address] [place] GFR/1.73 sq M.predicted MDRD (S/P/Bld) [Vol rate/Area] mL/min/{1.73_m2} Normal [facility] Comment on above: Performed By: #### F FN #### [address] Globulin (S) [Mass/Vol] 2.4 g/dL Normal [facility] Comment on above: Performed By: #### F FN #### [address] Glucose [Mass/Vol] 89 mg/dL Normal 70-100 [facility] Comment on above: Result Comment: Formerly named [facility] Glucose Reference Range is dependent on time and content of last meal. Glucose of more than 200 mg/dL in a nonstressed, ambulatory subject supports the diagnosis of Diabetes Mellitus. ADA recommended reference range Performed By: #### F FN #### [address] Potassium [Moles/Vol] 3.7 mmol/L Normal 3.5-5.1 [facility] Comment on above: Performed By: #### F FN #### [address] Protein [Mass/Vol] 5.9 g/dL Low 6.4-8.9 [facility] Comment on above: Performed By: #### F FN #### [address] Sodium [Moles/Vol] 138 mmol/L Normal 136-145 [facility] Comment on above: Performed By: #### F FN #### [facility] [address] [place] [address] [place] Urea nitrogen [Mass/Vol] 5 mg/dL Low 7-25 [facility] Comment on above: Performed By: #### F FN #### [facility] [address] [place] [address] [place] Creatinine [Mass/volume] in Serum or PlasmaOrdered By: Latrice Sepulveda on 06-06-2023 Creatinine [Mass/Vol] 0.45 mg/dL 0.60-1.20 [facility] Globulin Calc (S) [Mass/Vol] Ordered By: Latrice Sepulveda on 06-06-2023 Globulin (S) [Mass/Vol] 2.4 g/dL [facility] Glucose [Mass/volume] in Ser um or PlasmaOrdered By: Latrice Sepulveda on 06-06-2023 Glucose [Mass/Vol] 89 mg/dL 70-100 [facility] Comment on above: ADA recommended refe rence rangeRandom Glucose Reference Range is dependent on time and content of last meal. Glucose of more than 200 mg/dL in a nonstressed, ambulatory subject supports the diagnosis of Diabetes Mellitus. No Panel InformationOrdered By: Latrice Sepulveda on 06-06-2023 Estimated GFR (CKD-EPI) > 60.0 mL/Min [facility] Creatinine Clearance (Chem N/A [facility] Parathyrin.intact [Mass/volu me] in Serum or PlasmaOrdered By: Latrice Sepulveda on 06-06-2023 Parathyrin.intact [Mass/Vol] 45.8 pg/mL [facility] Parathyroid Hormone Intacton 06-06-2023 Parathyroid Hormone Intact 45.8 pg/mL Normal [facility] Comment on above: Result Comment: PERF ORMED BY: [facility] [address] [place] [address] PATHOLOGIST CONSERVATION WORKER JERRY CASTRO M.D. Performed By: #### F FN #### [facility] [address] [place] [address] [place] Potassium [Moles/volume] in Serum or PlasmaOrdered By: Latrice Sepulveda on 06-06-2023 Potassium [Moles/Vol] 3.7 mmol/L 3.5-5.1 [facility] Protein [Mass/volume] in Ser um or PlasmaOrdered By: Latrice Sepulveda on 06-06-2023 Protein [Mass/Vol] 5.9 g/dL 6.4-8.9 [facility] Serum or plasma albumin/glob ulin mass ratioOrdered By: Latrice Sepulveda on 06-06-2023 Albumin/Globulin [Mass ratio] 1.5 {ratio} [facility] Serum or plasma anion gap de terminationOrdered By: Latrice Sepulveda on 06-06-2023 Anion gap [Moles/Vol] 9.9 mmol/L 6.0-15.0 [facility] Serum or plasma calcitriol m easurement (mass/volume)Ordered By: Latrice Sepulveda on 06-06-2023 1,25-dihydroxyvitamin D3 [Mass/Vol] 123.0 pg/mL 24.8-81.5 [facility] Comment on above: Performed at: BN - [address] [id number] Director: Dinora Alvarenga MD, Phone: [phone] Sodium [Moles/volume] in Ser um or PlasmaOrdered By: Latrice Sepulveda on 06-06-2023 Sodium [Moles/Vol] 138 mmol/L 136-145 [facility] Urea nitrogen [Mass/volume] in Serum or PlasmaOrdered By: Latrice Sepulveda on 06-06-2023 Urea nitrogen [Mass/Vol] 5 mg/dL 7-25 [facility] Vitamin D 25 Hydroxy Totalon 06-06-2023 Vitamin D 25 Hydroxy Total 22.4 ng/mL Low 30-100 [facility] Comment on above: Result Comment: HARVINDER MIN D STATUS 25(OH)VITAMIN D RANGE (ng/mL) Deficient <20 Insufficient 20 to <30 Sufficient 30 to 100 Reference: Helen MF,Lino NC, Gildardo MARTELL, et al. Evaluation,treatment, and prevention of vitamin D deficiency; an Endocrine Society clinical practice guideline. JCEM. 2010; 96(7):1911-. PERFORMED BY: [address] [address] PATHOLOGIST CONSERVATION WORKER JERRY CASTRO M.D. Performed By: #### F FN #### [facility] [address] [place] [address] [facility] Vitamin D+Metabolites [Mass/ volume] in Serum or PlasmaOrdered By: Latrice Sepulveda on 06-06-2023 Vitamin D+Metabolites [Mass/Vol] 22.4 ng/mL 30-100 [facility] Comment on above: VITAMIN D STATUS 25( OH)VITAMIN D RANGE (ng/mL) Deficient <20 Insufficient 20 to <30Sufficient 30 to 100Reference: Lino Pena, Gildardo MARTELL, et al. Evaluation,treatment, and prevention of vitamin D deficiency; an Endocrine Society clinical practice guideline. JCEM. 2010; 96(7):1911-30. Vitamin D 25 Hydroxy Totalon 05-06-2023 Vitamin D 25 Hydroxy Total 21.0 ng/mL Low 30-100 [facility] Comment on above: Order Comment: Comme nt patients 22 - 34 6/7 weeks prior to vaginal exam Result Comment: HARVINDER MIN D STATUS 25(OH)VITAMIN D RANGE (ng/mL) Deficient <20 Insufficient 20 to <30 Sufficient 30 to 100 Reference: Lino Pena, Gildardo MARTELL, et al. Evaluation,treatment, and prevention of vitamin D deficiency; an Endocrine Society clinical practice guideline. JCEM. 2010; 96(7):1911-30. PERFORMED BY: [address] [address] PATHOLOGIST CONSERVATION WORKER JERRY CASTRO M.D. Performed By: #### F FN #### [facility] [address] [place] [address] [place] Vitamin D+Metabolites [Mass/ volume] in Serum or PlasmaOrdered By: Page Magaña on 05-06-2023 Vitamin D+Metabolites [Mass/Vol] 21.0 ng/mL 30-100 [facility] Comment on above: VITAMIN D STATUS 25( OH)VITAMIN D RANGE (ng/mL) Deficient <20 Insufficient 20 to <30Sufficient 30 to 100Reference: Helen MF,Lino NC, Gildrado MARTELL, et al. Evaluation,treatment, and prevention of vitamin D deficiency; an Endocrine Society clinical practice guideline. JCEM. 2010; 96(7):1911-30. Alanine aminotransferase [En zymatic activity/volume] in Serum or PlasmaOrdered By: Sarmad Luque on 01-24-2023 ALT [Catalytic activity/Vol] 20 U/L 7-52 [facility] Albumin [Mass/volume] in Ser um or Plasma by Bromocresol green (BCG) dye binding methoOrdered By: Sarmad Luque on 01-24-2023 Albumin BCG dye [Mass/Vol] 4.7 g/dL 3.5-5.7 [facility] Alkaline phosphatase [Enzyma tic activity/volume] in Serum or PlasmaOrdered By: Sarmad Luque on 01-24-2023 ALP [Catalytic activity/Vol] 71 U/L 34-104 [facility] Aspartate aminotransferase [ Enzymatic activity/volume] in Serum or PlasmaOrdered By: Sarmad Luque on 01-24-2023 AST [Catalytic activity/Vol] 14 U/L 13-39 [facility] Automated erythrocytes count in urine sediment (number/area)Ordered By: Sarmad Luque on 01-24-2023 RBC Auto (Urine sed) [#/Area] 20-49 [HPF] 0-4 [facility] Automated leukocytes count i n urine sediment (number/area)Ordered By: Sarmad Luque on 01-24-2023 WBC Auto (Urine sed) [#/Area] 1-2 [HPF] 0-4 [facility] Basic Metabolic Panelon 01-07 Anion gap [Moles/Vol] 11.4 mmol/L Normal 6.0-15.0 [facility] Comment on above: Performed By: #### C BC, LIPASE, BMP, HEPATIC ####[facility] [address] [place] [address] [facility] Calcium [Mass/Vol] 9.0 mg/dL Normal 8.6-10.3 [facility] Comment on above: Performed By: #### C BC, LIPASE, BMP, HEPATIC ####[place] [address] [place] [address] [facility] Chloride [Moles/Vol] 105 mmol/L Normal 98-107 [facility] Comment on above: Performed By: #### C BC, LIPASE, BMP, HEPATIC ####[place] [place] [address] [facility] CO2 [Moles/Vol] 25.0 mmol/L Normal 21.0-31.0 [facility] Comment on above: Performed By: #### C BC, LIPASE, BMP, HEPATIC ####[place] [address] [place] [id number] [facility] Creatinine [Mass/Vol] 0.67 mg/dL Normal 0.60-1.20 [facility] Comment on above: Performed By: #### C BC, LIPASE, BMP, HEPATIC ####[place] [id number] [facility] Creatinine Clr Calc Pharmacy 103.40 [facility] Comment on above: Performed By: #### C BC, LIPASE, BMP, HEPATIC ####[place] [address] [place] [id number] [facility] GFR/1.73 sq M.predicted MDRD (S/P/Bld) [Vol rate/Area] mL/min/{1.73_m2} [facility] Comment on above: Performed By: #### C BC, LIPASE, BMP, HEPATIC ####[place] [id number] [facility] Glucose [Mass/Vol] 89 mg/dL Normal 70-100 [facility] Comment on above: Result Comment: [facility] Glucose Reference Range is dependent on time and content of last meal. Glucose of more than 200 mg/dL in a nonstressed, ambulatory subject supports the diagnosis of Diabetes Mellitus. ADA recommended reference range Performed By: #### C BC, LIPASE, BMP, HEPATIC ####[place] [address] [place] [id number] [facility] Potassium [Moles/Vol] 3.4 mmol/L Low 3.5-5.1 [facility] Comment on above: Performed By: #### C BC, LIPASE, BMP, HEPATIC ####[facility] [id number] [place] [id number] [facility] Sodium [Moles/Vol] 138 mmol/L Normal 136-145 [facility] Comment on above: Performed By: #### C BC, LIPASE, BMP, HEPATIC ####[facility] [id number] [place] [id number] [facility] Urea nitrogen [Mass/Vol] 6 mg/dL Low 7-25 [facility] Comment on above: Performed By: #### C BC, LIPASE, BMP, HEPATIC ####[facility] [id number] [place] [id number] [facility] Basophils Auto (Bld) [#/Vol] Ordered By: Sarmad Luque on 01-24-2023 Basophils (Bld) [#/Vol] 0.1 10*3/uL 0.0-0.2 [facility] Basophils/100 WBC Auto (Bld) Ordered By: Sarmad Luque on 01-24-2023 Basophils/100 WBC (Bld) 0.8 % . F [facility] Bilirubin Test strip Ql (U)O rdered By: Sarmad Luque on 01-24-2023 Bilirubin Ql (U) Negative Negative [facility] Bilirubin.direct [Mass/volum e] in Serum or PlasmaOrdered By: Sarmad Luque on 01-24-2023 Bilirubin.direct [Mass/Vol] 0.20 mg/dL 0.03-0.18 [facility] Bilirubin.total [Mass/volume ] in Serum or PlasmaOrdered By: Sarmad Luque on 01-24-2023 Bilirubin [Mass/Vol] 0.9 mg/dL 0.3-1.0 [facility] Calcium [Mass/volume] in Ser um or PlasmaOrdered By: Sarmad Luque on 01-24-2023 Calcium [Mass/Vol] 9.0 mg/dL 8.6-10.3 [facility] Carbon dioxide, total [Moles /volume] in Serum or PlasmaOrdered By: Sarmad Luque on 01-24-2023 CO2 [Moles/Vol] 25.0 mmol/L 21.0-31.0 [facility] Chloride [Moles/volume] in S gris or PlasmaOrdered By: Sarmad Luque on 01-24-2023 Chloride [Moles/Vol] 105 mmol/L 98-107 [facility] Choriogonadotropin.beta subu nit [Units/volume] in Serum or PlasmaOrdered By: Sarmad Luque on 01-24-2023 HCG.beta subunit Qn 120.64 m[IU]/mL [facility] Comment on above: Approximate Approxim ate hCG Gestational Age Range (mIU/ml) (weeks)0.2-1 5-50 1-2 50-500 2-3 100-5,000 3-4 500-10,000 4-5 1,000-50,000 5-6 10,000-100,000 6-8 15,000-200,000 8-12 10,000-100,000 Color Auto (U)Ordered By: Eric Luque on 01-24-2023 Color (U) Yellow Yellow [facility] Complete Blood Count Auto Di ffon 01-24-2023 Basophils (Bld) [#/Vol] 0.1 10*3/uL Normal 0.0-0.2 [facility] Comment on above: Result Comment: PERF ORMED BY: [place] [address] PATHOLOGIST CONSERVATION WORKER JERRY CASTRO M.D. Performed By: #### F FN #### [facility] [address] [place] [address] [place] Basophils/100 WBC (Bld) 0.8 % Normal . [facility] Comment on above: Performed By: #### F FN #### [facility] [address] [place] [address] [place] Eosinophils (Bld) [#/Vol] 0.1 10*3/uL Normal 0.0-0.45 [facility] Comment on above: Performed By: #### F FN #### [facility] [address] [place] [address] [place] Eosinophils/100 WBC (Bld) 1.3 % Normal . [facility] Comment on above: Performed By: #### F FN #### [facility] [address] Erythrocyte distribution width (RBC) [Ratio] 13.5 % Normal 11.9-15.3 [facility] Comment on above: Performed By: #### F FN #### [facility] [address] Hematocrit (Bld) [Volume fraction] 41.4 % Normal 34.0-46.4 [facility] Comment on above: Performed By: #### F FN #### [facility] [address] Hemoglobin (Bld) [Mass/Vol] 14.1 g/dL Normal 11.8-15.4 [facility] Comment on above: Performed By: #### F FN #### [address] Lymphocytes (Bld) [#/Vol] 2.4 10*3/uL Normal 1.00-4.8 [facility] Comment on above: Performed By: #### F FN #### [address] Lymphocytes/100 WBC (Bld) 31.9 % Normal . [facility] Comment on above: Performed By: #### F FN #### [address] MCH (RBC) [Entitic mass] 28.8 pg Normal 24.7-34.3 [facility] Comment on above: Performed By: #### F FN #### [address] MCV (RBC) [Entitic vol] 84.3 fL Normal 80-[address] [facility] Comment on above: Performed By: #### F FN #### [address] Mean Corpuscular HGB Conc 34.1 g/dL Normal 32.0-35.0 [facility] Comment on above: Performed By: #### F FN #### [place] [address] [place] Monocytes (Bld) [#/Vol] 0.5 10*3/uL Normal 0.0-0.8 [facility] Comment on above: Performed By: #### F FN #### [facility] [address] Monocytes/100 WBC (Bld) 17.21 % Normal 0.00-20.[address] [facility] Comment on above: Performed By: #### F FN #### [facility] [address] [place] [address] [place] Monocytes/100 WBC (Bld) 7.3 % Normal . [facility] Comment on above: Performed By: #### F FN #### [address] Neutrophils (Bld) [#/Vol] 4.3 10*3/uL Normal 1.8-7.7 [facility] Comment on above: Performed By: #### F FN #### [address] Neutrophils/100 WBC (Bld) 58.7 % Normal . [facility] Comment on above: Performed By: #### F FN #### [address] NRBC% 0.1 /100{WBC} Normal 0-0.5 [facility] Comment on above: Performed By: #### F FN #### [address] Platelet mean volume (Bld) [Entitic vol] 9.2 fL Normal 6.3-10.7 [facility] Comment on above: Performed By: #### F FN #### [place] [address] [place] Platelets (Bld) [#/Vol] 222 10*3/uL Normal 150-450 [facility] Comment on above: Performed By: #### F FN #### [address] RBC (Bld) [#/Vol] 4.91 10*6/uL Normal 3.60-5.00 [facility] Comment on above: Performed By: #### F FN #### [facility] [address] WBC (Bld) [#/Vol] 7.4 10*3/uL Normal 3.8-11.6 [facility] Comment on above: Performed By: #### F FN #### [facility] [address] Creatinine [Mass/volume] in Serum or PlasmaOrdered By: Sarmad Luque on 01-24-2023 Creatinine [Mass/Vol] 0.67 mg/dL 0.60-1.20 [facility] Dipstick and Microscopicon 0 01-24-2023 Appearance (U) Cloudy Critically abnormal Clear [facility] Comment on above: Order Comment: Name Collection Type:: Clean-Voided Midstream Performed By: #### A DDONUATRESSA CG ####[place] [id number] [facility] Bacteria,Urine None Seen Normal None Seen [facility] Comment on above: Order Comment: Name Collection Type:: Clean-Voided Midstream Performed By: #### A DDONUAANA BUSTILLOSCG ####[address] Bilirubin,Urine Negative Normal Negative [facility] Comment on above: Order Comment: Name Collection Type:: Clean-Voided Midstream Performed By: #### A DDONUAPLUS CG ####[place] [address] [place] [phone] [facility] Color (U) Yellow Normal Yellow [facility] Comment on above: Order Comment: Name Collection Type:: Clean-Voided Midstream Performed By: #### A DDONUAPLUS UHCG ####[place] [id number] [facility] Glucose Ql (U) Normal Normal Normal [facility] Comment on above: Order Comment: Name Collection Type:: Clean-Voided Midstream Performed By: #### A DDONUAPLUS UHCG ####[address] [address] [facility] Hyaline Casts,Urine 0-8 Normal 0-8 [facility] Comment on above: Order Comment: Name Collection Type:: Clean-Voided Midstream Performed By: #### A DDONUAPLUS, UHCG ####[address] [address] [facility] Ketones Ql (U) Trace High Negative [facility] Comment on above: Order Comment: Name Collection Type:: Clean-Voided Midstream Performed By: #### A DDONUAPLUS, UHCG ####[address] [address] [facility] Leukocyte esterase Test strip Ql (U) 1+ High Negative [facility] Comment on above: Order Comment: Name Collection Type:: Clean-Voided Midstream Performed By: #### A DDONUAPLUS, UHCG ####[place] [id number] [facility] Nitrite,Urine Negative Normal Negative [facility] Comment on above: Order Comment: Name Collection Type:: Clean-Voided Midstream Performed By: #### A DDONUAPLUS, UHCG ####[address] [address] [facility] Occult Blood,Urine 2+ High Negative [facility] Comment on above: Order Comment: Name Collection Type:: Clean-Voided Midstream Performed By: #### A DDONUAPLUS, UHCG ####[address] [address] [facility] pH (U) 6.0 [pH] Normal 5.0-9.0 [facility] Comment on above: Order Comment: Name Collection Type:: Clean-Voided Midstream Performed By: #### A DDONUAPLUS, UHCG ####[address] [address] [facility] Protein,Urine Trace High Negative [facility] Comment on above: Order Comment: Name Collection Type:: Clean-Voided Midstream Performed By: #### A DDONUAPLUS, UHCG ####[place] [id number] [facility] RBC,Urine 20-49 High 0-4 [facility] Comment on above: Order Comment: Name Collection Type:: Clean-Voided Midstream Performed By: #### A DDONUAPLUS, [facility] ####[address] Specificy [place],Urine 1.022 Normal 1.001-1.030 [facility] Comment on above: Order Comment: Name Collection Type:: Clean-Voided Midstream Performed By: #### A EARLUAPLUS [facility] ####[address] Squamous Epithelial Cell,Urine 5-9 High 0-2 [facility] Comment on above: Order Comment: Name Collection Type:: Clean-Voided Midstream Performed By: #### A GERALD [facility] ####[address] Urobilinogen,Urine Normal Normal Normal [facility] Comment on above: Order Comment: Name Collection Type:: Clean-Voided Midstream Performed By: #### A GERALD [facility] ####[address] WBC,Urine 1-2 Normal 0-4 [facility] Comment on above: Order Comment: Name Collection Type:: Clean-Voided Midstream Performed By: #### A KAUSHALONUATRESSA, [facility] ####[address] Eosinophils Auto (Bld) [#/Vo l]Ordered By: Sarmad Luque on 01-24-2023 Eosinophils (Bld) [#/Vol] 0.1 10*3/uL 0.0-0.45 [facility] Eosinophils/100 WBC Auto (Bl d)Ordered By: Sarmad Luque on 01-24-2023 Eosinophils/100 WBC (Bld) 1.3 % . [facility] Erythrocyte distribution wid th Auto (RBC) [Ratio]Ordered By: Sarmad Luque on 01-24-2023 Erythrocyte distribution width (RBC) [Ratio] 13.5 % 11.9-15.3 [facility] Globulin Calc (S) [Mass/Vol] Ordered By: Sarmad Luque on 01-24-2023 Globulin (S) [Mass/Vol] 2.7 g/dL [facility] Glucose [Mass/volume] in Ser um or PlasmaOrdered By: Sarmad Luque on 01-24-2023 Glucose [Mass/Vol] 89 mg/dL 70-100 [facility] Comment on above: ADA recommended refe rence rangeRandom Glucose Reference Range is dependent on time and content of last meal. Glucose of more than 200 mg/dL in a nonstressed, ambulatory subject supports the diagnosis of Diabetes Mellitus. HCG ( test) IA.rapi d Ql (U)Ordered By: Sarmad Luque on 01-24-2023 HCG ( test) Ql (U) Positive [facility] HCG,Quantitativeon 3 HCG,Quantitative 120.64 m[iU]/mL Normal [facility] Comment on above: Result Comment: Appr oximate Approximate hCG Gestational Age Range (mIU/ml) (weeks) 0.2-1 5-50 1-2 50-500 2-3 100-5,000 3-4 500-10,000 4-5 1,000-50,000 5-6 10,000-100,000 6-8 15,000-200,000 8-12 10,000-100,000 PERFORMED BY: [facility] [address] [id number] PATHOLOGIST CONSERVATION WORKER JERRY CASTRO M.D. Performed By: #### H CGQNT ####[facility] [address] [place] [address] [facility] HCG,Urineon 01-24-2023 Beta HCG ( test) Ql (U) Positive [facility] Comment on above: Order Comment: Name Collection Type:: Clean-Voided Midstream Result Comment: PERF ORMED BY: [facility] [address] [place] [id number] PATHOLOGIST CONSERVATION WORKER JIANLAN SUN M.D. Performed By: #### A DDONUATRESSA, [facility] ####[facility] Hematocrit Auto (Bld) [Volum e fraction]Ordered By: Sarmad Luque on 01-24-2023 Hematocrit (Bld) [Volume fraction] 41.4 % 34.0-46.4 [facility] Hemoglobin [Mass/volume] in BloodOrdered By: Sarmad Luque on 01-24-2023 Hemoglobin (Bld) [Mass/Vol] 14.1 g/dL 11.8-15.4 [facility] Hepatic Panelon 01-24-2023 Albumin [Mass/Vol] 4.7 g/dL Normal 3.5-5.7 [facility] Comment on above: Performed By: #### F FN #### [address] Albumin/Globulin [Mass ratio] 1.7 {ratio} Normal [facility] Comment on above: Performed By: #### F FN #### [facility] [address] ALP [Catalytic activity/Vol] 71 U/L Normal 34-104 [facility] Comment on above: Performed By: #### F FN #### [address] ALT [Catalytic activity/Vol] 20 U/L Normal 7-52 [facility] Comment on above: Performed By: #### F FN #### [place] [address] [place] AST [Catalytic activity/Vol] 14 U/L Normal 13-39 [facility] Comment on above: Performed By: #### F FN #### [place] [id number] [place] Bilirubin [Mass/Vol] 0.9 mg/dL Normal 0.3-1.0 [facility] Comment on above: Performed By: #### F FN #### [place] [address] [place] Bilirubin,Indirect 0.7 mg/dL Normal [facility] Comment on above: Performed By: #### F FN #### [facility] [address] Bilirubin.indirect [Mass/Vol] 0.20 mg/dL High 0.03-0.18 [facility] Comment on above: Performed By: #### F FN #### [facility] [address] Globulin (S) [Mass/Vol] 2.7 g/dL Normal [facility] Comment on above: Performed By: #### F FN #### [facility] [address] Protein [Mass/Vol] 7.4 g/dL Normal 6.4-8.9 [facility] Comment on above: Performed By: #### F FN #### [facility] [address] Ketones Auto test strip (U) [Mass/Vol]Ordered By: Sarmad Luque on 01-24-2023 Ketones (U) [Mass/Vol] Trace Negative [facility] - UrinalysisOrder ed By: Sarmad Luque on 01-24-2023 Hyaline casts LM Ql (Urine sed) 0-8 [LPF] 0-8 [facility] Leukocytes [#/volume] correc mague for nucleated erythrocytes in Blood by Automated counOrdered By: Sarmad Luque on 01-24-2023 WBC corrected for nucl RBC Auto (Bld) [#/Vol] 7.4 10*3/uL 3.8-11.6 [facility] Lipaseon 01-24-2023 Lipase [Catalytic activity/Vol] 47.0 U/L Normal 11.0-82.0 [facility] Comment on above: Result Comment: PERF ORMED BY: [facility] [address] [place] [address] PATHOLOGIST CONSERVATION WORKER JERRY CASTRO M.D. Performed By: #### C BC, LIPASE, BMP, HEPATIC ####[facility] [address] Lipase [Enzymatic activity/v olume] in Serum or PlasmaOrdered By: Sarmad Luque on 01-24-2023 Lipase [Catalytic activity/Vol] 47.0 U/L 11.0-82.0 [facility] Lymphocytes Auto (Bld) [#/Vo l]Ordered By: Sarmad Luque on 01-24-2023 Lymphocytes (Bld) [#/Vol] 2.4 10*3/uL 1.00-4.8 [facility] Lymphocytes/100 WBC Auto (Bl d)Ordered By: Sarmad Luque on 01-24-2023 Lymphocytes/100 WBC (Bld) 31.9 % . [facility] MCH Auto (RBC) [Entitic mass ]Ordered By: Sarmad Luque on 01-24-2023 MCH (RBC) [Entitic mass] 28.8 pg 24.7-34.3 [facility] MCHC Auto (RBC) [Mass/Vol]Or dered By: Sarmad Luque on 01-24-2023 MCHC (RBC) [Mass/Vol] 34.1 g/dL 32.0-35.0 [facility] [place] [facility] MCV Auto (RBC) [Entitic vol] Ordered By: Sarmad Luque on 01-24-2023 MCV (RBC) [Entitic vol] 84.3 fL 80-[address] [facility] Monocyte distribution width [Entitic volume] in Blood by AutomatedOrdered By: Sarmad Luque on 01-24-2023 Monocyte distribution width Auto (Bld) [Entitic vol] 17.21 % 0.00-20.00 [facility] Monocytes Auto (Bld) [#/Vol] Ordered By: Sarmad Luque on 01-24-2023 Monocytes (Bld) [#/Vol] 0.5 10*3/uL 0.0-0.8 [facility] Monocytes/100 WBC Auto (Bld) Ordered By: Sarmad Luque on 01-24-2023 Monocytes/100 WBC (Bld) 7.3 % . [facility] Neutrophils Auto (Bld) [#/Vo l]Ordered By: Sarmad Luque on 01-24-2023 Neutrophils (Bld) [#/Vol] 4.3 10*3/uL 1.8-7.7 [facility] Neutrophils/100 WBC Auto (Bl d)Ordered By: Sarmad Luque on 01-24-2023 Neutrophils/100 WBC (Bld) 58.7 % . [facility] Nitrite Test strip Ql (U)Ord ered By: Sarmad Luque on 01-24-2023 Nitrite Ql (U) Negative Negative [facility] No Panel InformationOrdered By: Sarmad Luque on 01-24-2023 Estimated GFR (CKD-EPI) > 60.0 mL/Min [facility] Creatinine Clearance (Chem 103.40 [facility] Nucleated erythrocytes [Pres ence] in Blood by Automated countOrdered By: Sarmad Luque on 01-24-2023 Nucleated RBC Auto Ql (Bld) 0.1 /100{WBC} 0-0.5 [facility] Platelet mean volume Auto (B ld) [Entitic vol]Ordered By: Sarmad Luque on 01-24-2023 Platelet mean volume (Bld) [Entitic vol] 9.2 fL 6.3-10.7 [facility] Platelets Auto (Bld) [#/Vol] Ordered By: Sarmad Luque on 01-24-2023 Platelets (Bld) [#/Vol] 222 10*3/uL 150-450 [facility] Potassium [Moles/volume] in Serum or PlasmaOrdered By: Sarmad Luque on 01-24-2023 Potassium [Moles/Vol] 3.4 mmol/L 3.5-5.1 [facility] Protein Auto test strip (U) [Mass/Vol]Ordered By: Sarmad Luque on 01-24-2023 Protein (U) [Mass/Vol] Trace mg/dL Negative [facility] Protein [Mass/volume] in Ser um or PlasmaOrdered By: Sarmad Luque on 01-24-2023 Protein [Mass/Vol] 7.4 g/dL 6.4-8.9 [facility] RBC Auto (Bld) [#/Vol]Ordere d By: Sarmad Luque on 01-24-2023 RBC (Bld) [#/Vol] 4.91 10*6/uL 3.60-5.00 [facility] Serum or plasma albumin/glob ulin mass ratioOrdered By: Sarmad Luqeu on 01-24-2023 Albumin/Globulin [Mass ratio] 1.7 {ratio} [facility] Serum or plasma anion gap de terminationOrdered By: Sarmad Luque on 01-24-2023 Anion gap [Moles/Vol] 11.4 mmol/L 6.0-15.0 [facility] Serum or plasma non-glucuron idated bilirubin measurement (mass/volume)Ordered By: Sarmad Luque on 01-24-2023 Bilirubin.indirect [Mass/Vol] 0.7 mg/dL [facility] Sodium [Moles/volume] in Ser um or PlasmaOrdered By: Sarmad Luque on 01-24-2023 Sodium [Moles/Vol] 138 mmol/L 136-145 [facility] Specific gravity Auto test s trip (U) [Rel density]Ordered By: Sarmad Luque on 01-24-2023 Specific gravity (U) [Rel density] 1.022 1.001-1.030 [facility] Squamous epithelial cells de tection in urine sediment by light microscopyOrdered By: Sarmad Luque on 01-24-2023 Epithelial cells.squamous LM Ql (Urine sed) 5-9 [HPF] 0-2 [facility] US OB transvaginalon 023 [place] [address] Ultrasound Report Signed Patient: Elyssa Smith MR#: [id number] : 1990 Acct:[id number] Age/Sex: 32 / F ADM Date: 01/24/23 Loc: ER Room: Type: [facility] ER Attending Dr: Ordering Provider: Sarmad Luque DO Date of Service: 01/24/23 US/US OB <= 14 weeks fetus: Abdominal Pain ([id number]) US/US OB transvaginal: PAIN Copies to: Sarmad [...] Carrillo Ziegler M.D.01/24/2023 2:06 PM Dictation Location: [place] [address] Tech: Ashely Doll Transcribed By: SILVINA 01/24/23 140 Dictated By: Carrillo Ziegler II, MD 01/24/23 1401 Signed By: 01/24/23 1406 Normal [facility] US renal BIon 01-24-2023 US renal BI [facility] [place] [address] Ultrasound Report Signed Patient: Elyssa Smith MR#: [id number] : 1990 Acct:[id number] Age/Sex: 32 / F ADM Date: 01/24/23 Loc: ER Room: Type: [facility] ER Attending Dr: Ordering Provider: Sarmad Luque DO Date of Service: 01/24/23 US/US renal BI: flank pain Hx kidney stone R flank Copies to: Sarmad Luque, DO US renal BI 01/24/2023 10:53 AM [...] Carrillo Ziegler M.D.01/24/2023 2:12 PM Dictation Location: [place] [address] Tech: Ashely Doll Transcribed By: SILVINA 01/24/23 1412 Dictated By: Carrillo Ziegler II, MD 01/24/23 1410 Signed By: 01/24/23 1412 Normal [facility] Urea nitrogen [Mass/volume] in Serum or PlasmaOrdered By: Sarmad Luque on 01-24-2023 Urea nitrogen [Mass/Vol] 6 mg/dL 7-25 [facility] Urine bacteria detection by automated methodOrdered By: Sarmad Luque on 01-24-2023 Bacteria Auto Ql (U) None seen None Seen [facility] Urine clarity by refractomet ry automatedOrdered By: Sarmad Luque on 01-24-2023 Clarity Refractometry automated (U) Cloudy Clear [facility] Urine glucose measurement by automated test strip (mass/volume)Ordered By: Sarmad Luque on 01-24-2023 Glucose Auto test strip (U) [Mass/Vol] Normal mg/dL Normal [facility] Urine hemoglobin detection b y automated test stripOrdered By: Sarmad Luque on 01-24-2023 Hemoglobin Auto test strip Ql (U) 2+ Negative [facility] Urine leukocyte esterase det ection by automated test stripOrdered By: Sarmad Luque on 01-24-2023 Leukocyte esterase Auto test strip Ql (U) 1+ Negative [facility] Urobilinogen Auto test strip (U) [Mass/Vol]Ordered By: Sarmad Luque on 01-24-2023 Urobilinogen (U) [Mass/Vol] Normal mg/dL Normal [facility] WBC Auto (Bld) [#/Vol]Ordere d By: Sarmad Luque on 01-24-2023 WBC (Bld) [#/Vol] 7.4 10*3/uL 3.8-11.6 [facility] pH Auto test strip (U)Ordere d By: Sarmad Luque on 01-24-2023 pH (U) 6.0 [pH] 5.0-9.0 [facility] ALFRED with Reflexon 10-27-2022 ALFRED with Reflex Negative Normal Negative [facility] Comment on above: Result Comment: Perf ormed at: CB - [facility] [place] [id number] Learning Officer: Ismael Suh PhD, Phone: [phone] PERFORMED BY: [place] [address] PATHOLOGIST CONSERVATION WORKER JERRY CASTRO M.D. Performed By: #### F FN #### [address] Alanine aminotransferase [En zymatic activity/volume] in Serum or PlasmaOrdered By: Page Magaña on 10-27-2022 ALT [Catalytic activity/Vol] 30 U/L 7-52 [facility] Albumin [Mass/volume] in Ser um or Plasma by Bromocresol green (BCG) dye binding methoOrdered By: Page Magaña on 10-27-2022 Albumin BCG dye [Mass/Vol] 4.2 g/dL 3.5-5.7 [facility] Alkaline phosphatase [Enzyma tic activity/volume] in Serum or PlasmaOrdered By: Page Magaña on 10-27-2022 ALP [Catalytic activity/Vol] 86 U/L 34-104 [facility] Aspartate aminotransferase [ Enzymatic activity/volume] in Serum or PlasmaOrdered By: Page Magaña on 10-27-2022 AST [Catalytic activity/Vol] 17 U/L 13-39 [facility] Basophils Auto (Bld) [#/Vol] Ordered By: Page Magaña on 10-27-2022 Basophils (Bld) [#/Vol] 0.1 10*3/uL 0.0-0.2 [facility] Basophils/100 WBC Auto (Bld) Ordered By: Page Magaña on 10-27-2022 Basophils/100 WBC (Bld) 0.6 % . [facility] Bilirubin.total [Mass/volume ] in Serum or PlasmaOrdered By: Page Magaña on 10-27-2022 Bilirubin [Mass/Vol] 0.6 mg/dL 0.3-1.0 [facility] Calcium [Mass/volume] in Ser um or PlasmaOrdered By: Page Magaña on 10-27-2022 Calcium [Mass/Vol] 9.0 mg/dL 8.6-10.3 [facility] Carbon dioxide, total [Moles /volume] in Serum or PlasmaOrdered By: Page Magaña on 10-27-2022 CO2 [Moles/Vol] 24.7 mmol/L 21.0-31.0 [facility] Chloride [Moles/volume] in S gris or PlasmaOrdered By: Page Magaña on 10-27-2022 Chloride [Moles/Vol] 107 mmol/L 98-107 [facility] Cholesterol [Mass/volume] in Serum or PlasmaOrdered By: Page aMgaña on 10-27-2022 Cholesterol [Mass/Vol] 209 mg/dL 140-200 [facility] Comment on above: Chol less than 200 m g/dl low riskChol 201-239 mg/dl borderline riskChol 240 mg/dl and greater high risk Cholesterol in LDL Calc [Mas s/Vol]Ordered By: Page Magaña on 10-27-2022 Cholesterol in LDL [Mass/Vol] 155 mg/dL 0-100 [facility] Comment on above: LDL ATP III CLASSIFI CATIONLDL less than 100 mg/dL OptimalLDL 100-129 mg/dL Near or above optimalLDL 130-159 mg/dL Borderline highLDL 160-189 mg/dL HighLDL greater than 189 mg/dL Very high Cholesterol in VLDL Calc [Ma ss/Vol]Ordered By: Page Magaña on 10-27-2022 Cholesterol in VLDL [Mass/Vol] 11 mg/dL [facility] Complete Blood Count Auto Di ffon 10-27-2022 Basophils (Bld) [#/Vol] 0.1 10*3/uL Normal 0.0-0.2 [facility] Comment on above: Result Comment: PERF ORMED BY: [place] [address] PATHOLOGIST CONSERVATION WORKER JERRY CASTRO M.D. Performed By: #### L IPID, CMP, CBC, TSH3 wRFLX, [id number] #### [address] #### ALFRED CHOICE, RA #### [facility] , Basophils/100 WBC (Bld) 0.6 % Normal . [facility] Comment on above: Performed By: #### L IPID, CMP, CBC, TSH3 wRFLX, [id number] #### [facility] [address] [place] [address] [place] #### ALFRED CHOICE, RA #### [facility] , Eosinophils (Bld) [#/Vol] 0.1 10*3/uL Normal 0.0-0.45 [facility] Comment on above: Performed By: #### L IPID, CMP, CBC, TSH3 wRFLX, [id number] #### [facility] [address] [place] [address] [place] #### ALFRED CHOICE, RA #### [facility] , Eosinophils/100 WBC (Bld) 1.6 % Normal . [facility] Comment on above: Performed By: #### L IPID, CMP, CBC, TSH3 wRFLX, [id number] #### [facility] [address] [place] [address] [place] #### ALFRED CHOICE, RA #### [facility] , Erythrocyte distribution width (RBC) [Ratio] 14.4 % Normal 11.9-15.3 [facility] Comment on above: Performed By: #### L IPID, CMP, CBC, TSH3 wRFLX, [id number] #### [place] [address] [place] #### ALFRED CHOICE, RA #### [facility] , Hematocrit (Bld) [Volume fraction] 40.5 % Normal 34.0-46.4 [facility] Comment on above: Performed By: #### L IPID, CMP, CBC, TSH3 wRFLX, [id number] #### [place] [address] [place] #### ALFRED CHOICE, RA #### [facility] , Hemoglobin (Bld) [Mass/Vol] 13.5 g/dL Normal 11.8-15.4 [facility] Comment on above: Performed By: #### L IPID, CMP, CBC, TSH3 wRFLX, [id number] #### [place] [address] [place] #### ALFRED CHOICE, RA #### [facility] , Lymphocytes (Bld) [#/Vol] 2.8 10*3/uL Normal 1.00-4.8 [facility] Comment on above: Performed By: #### L IPID, CMP, CBC, TSH3 wRFLX, [id number] #### [place] [address] [place] #### ALFRED CHOICE, RA #### [facility] , Lymphocytes/100 WBC (Bld) 30.3 % Normal . [facility] Comment on above: Performed By: #### L IPID, CMP, CBC, TSH3 wRFLX, [id number] #### [place] [address] [place] #### ALFRED CHOICE, RA #### [facility] , MCH (RBC) [Entitic mass] 28.1 pg Normal 24.7-34.3 [facility] Comment on above: Performed By: #### L IPID, CMP, CBC, TSH3 wRFLX, [id number] #### [address] #### ALFRED CHOICE, RA #### [facility] , MCV (RBC) [Entitic vol] 84.6 fL Normal 80-[address] [facility] Comment on above: Performed By: #### L IPID, CMP, CBC, TSH3 wRFLX, [id number] #### [address] #### ALFRED CHOICE, RA #### [facility] , Mean Corpuscular HGB Conc 33.3 g/dL Normal 32.0-35.0 [facility] Comment on above: Performed By: #### L IPID, CMP, CBC, TSH3 wRFLX, [id number] #### [address] #### ALFRED CHOICE, RA #### [facility] , Monocytes (Bld) [#/Vol] 0.6 10*3/uL Normal 0.0-0.8 [facility] Comment on above: Performed By: #### L IPID, CMP, CBC, TSH3 wRFLX, [id number] #### [place] [address] [place] #### ALFRED CHOICE, RA #### [facility] , Monocytes/100 WBC (Bld) 6.7 % Normal . [facility] Comment on above: Performed By: #### L IPID, CMP, CBC, TSH3 wRFLX, [id number] #### [place] [address] [place] #### ALFRED CHOICE, RA #### [facility] , Neutrophils (Bld) [#/Vol] 5.5 10*3/uL Normal 1.8-7.7 [facility] Comment on above: Performed By: #### L IPID, CMP, CBC, TSH3 wRFLX, [id number] #### [place] [address] [place] #### ALFRED CHOICE, RA #### [facility] , Neutrophils/100 WBC (Bld) 60.8 % Normal . [facility] Comment on above: Performed By: #### L IPID, CMP, CBC, TSH3 wRFLX, [id number] #### [place] [address] [place] #### ALFRED CHOICE, RA #### [facility] , NRBC% 0.3 /100{WBC} Normal 0-0.5 [facility] Comment on above: Performed By: #### L IPID, CMP, CBC, TSH3 wRFLX, [id number] #### [place] [address] [place] #### ALFRED CHOICE, RA #### [facility] , Platelet mean volume (Bld) [Entitic vol] 8.9 fL Normal 6.3-10.7 [facility] Comment on above: Performed By: #### L IPID, CMP, CBC, TSH3 wRFLX, [id number] #### [place] [address] [place] #### ALFRED CHOICE, RA #### [facility] , Platelets (Bld) [#/Vol] 246 10*3/uL Normal 150-450 [facility] Comment on above: Performed By: #### L IPID, CMP, CBC, TSH3 wRFLX, [id number] #### [place] [address] [place] #### ALFRED CHOICE, RA #### [facility] , RBC (Bld) [#/Vol] 4.79 10*6/uL Normal 3.60-5.00 [facility] Comment on above: Performed By: #### L IPID, CMP, CBC, TSH3 wRFLX, [id number] #### [facility] [address] [place] [address] [place] #### ALFRED CHOICE, RA #### [facility] , WBC (Bld) [#/Vol] 9.1 10*3/uL Normal 3.8-11.6 [facility] Comment on above: Performed By: #### L IPID, CMP, CBC, TSH3 wRFLX, [id number] #### [place] [address] [place] #### ALFRED CHOICE, RA #### [facility] , Comprehensive Metabolic Pane mauricio 10-27-2022 Albumin [Mass/Vol] 4.2 g/dL Normal 3.5-5.7 [facility] Comment on above: Order Comment: PT IS FASTING Performed By: #### L IPID, CMP, CBC, TSH3 wRFLX, [id number] #### [facility] [address] [place] [address] [place] #### ALFRED CHOICE, RA #### [facility] , Albumin/Globulin [Mass ratio] 1.8 {ratio} Normal [facility] Comment on above: Order Comment: PT IS FASTING Performed By: #### L IPID, CMP, CBC, TSH3 wRFLX, [id number] #### [facility] [address] [place] [address] [place] #### ALFRED CHOICE, RA #### [facility] , ALP [Catalytic activity/Vol] 86 U/L Normal 34-104 [facility] Comment on above: Order Comment: PT IS FASTING Performed By: #### L IPID, CMP, CBC, TSH3 wRFLX, [id number] #### [facility] [address] [place] [address] [place] #### ALFRED CHOICE, RA #### [facility] , ALT [Catalytic activity/Vol] 30 U/L Normal 7-52 [facility] Comment on above: Order Comment: PT IS FASTING Performed By: #### L IPID, CMP, CBC, TSH3 wRFLX, [id number] #### [facility] [address] [place] [address] #### ALFRED CHOICE, RA #### [facility] , Anion gap [Moles/Vol] 10.6 mmol/L Normal 6.0-15.0 [facility] Comment on above: Order Comment: PT IS FASTING Performed By: #### L IPID, CMP, CBC, TSH3 wRFLX, [id number] #### [place] [address] [place] #### ALFRED CHOICE, RA #### [facility] , AST [Catalytic activity/Vol] 17 U/L Normal 13-39 [facility] Comment on above: Order Comment: PT IS FASTING Performed By: #### L IPID, CMP, CBC, TSH3 wRFLX, [id number] #### [facility] [address] [place] [address] #### ALFRED CHOICE, RA #### [facility] , Bilirubin [Mass/Vol] 0.6 mg/dL Normal 0.3-1.0 [facility] Comment on above: Order Comment: PT IS FASTING Performed By: #### L IPID, CMP, CBC, TSH3 wRFLX, [id number] #### [facility] [address] [place] [address] [place] #### ALFRED CHOICE, RA #### [facility] , Calcium [Mass/Vol] 9.0 mg/dL Normal 8.6-10.3 [facility] Comment on above: Order Comment: PT IS FASTING Performed By: #### L IPID, CMP, CBC, TSH3 wRFLX, [id number] #### [facility] [address] [place] [address] [place] #### ALFRED CHOICE, RA #### [facility] , Chloride [Moles/Vol] 107 mmol/L Normal 98-107 [facility] Comment on above: Order Comment: PT IS FASTING Performed By: #### L IPID, CMP, CBC, TSH3 wRFLX, [id number] #### [facility] [address] [place] [address] [place] #### ALFRED CHOICE, RA #### [facility] , CO2 [Moles/Vol] 24.7 mmol/L Normal 21.0-31.0 [facility] Comment on above: Order Comment: PT IS FASTING Performed By: #### L IPID, CMP, CBC, TSH3 wRFLX, [id number] #### [facility] [address] [place] [address] #### ALFRED CHOICE, RA #### [facility] , Creatinine [Mass/Vol] 0.62 mg/dL Normal 0.60-1.20 [facility] Comment on above: Order Comment: PT IS FASTING Performed By: #### L IPID, CMP, CBC, TSH3 wRFLX, [id number] #### [facility] [address] [place] [address] [place] #### ALFRED CHOICE, RA #### [facility] , GFR/1.73 sq M.predicted MDRD (S/P/Bld) [Vol rate/Area] mL/min/{1.73_m2} Normal [facility] Comment on above: Order Comment: PT IS FASTING Performed By: #### L IPID, CMP, CBC, TSH3 wRFLX, [id number] #### [facility] [address] [place] [address] [place] #### ALFRED CHOICE, RA #### [facility] , Globulin (S) [Mass/Vol] 2.3 g/dL Normal [facility] Comment on above: Order Comment: PT IS FASTING Performed By: #### L IPID, CMP, CBC, TSH3 wRFLX, [id number] #### [place] [address] [place] #### ALFRED CHOICE, RA #### [facility] , Glucose [Mass/Vol] 93 mg/dL Normal 70-100 [facility] Comment on above: Order Comment: PT IS FASTING Result Comment: Formerly named [facility] Glucose Reference Range is dependent on time and content of last meal. Glucose of more than 200 mg/dL in a nonstressed, ambulatory subject supports the diagnosis of Diabetes Mellitus. ADA recommended reference range Performed By: #### L IPID, CMP, CBC, TSH3 wRFLX, [id number] #### [place] [address] [place] #### ALFRED CHOICE, RA #### [facility] , Potassium [Moles/Vol] 4.3 mmol/L Normal 3.5-5.1 [facility] Comment on above: Order Comment: PT IS FASTING Performed By: #### L IPID, CMP, CBC, TSH3 wRFLX, [id number] #### [place] [address] [place] #### ALFRED CHOICE, RA #### [facility] , Protein [Mass/Vol] 6.5 g/dL Normal 6.4-8.9 [facility] Comment on above: Order Comment: PT IS FASTING Performed By: #### L IPID, CMP, CBC, TSH3 wRFLX, [id number] #### [facility] [address] [place] [address] [place] #### ALFRED CHOICE, RA #### [facility] , Sodium [Moles/Vol] 138 mmol/L Normal 136-145 [facility] Comment on above: Order Comment: PT IS FASTING Performed By: #### L IPID, CMP, CBC, TSH3 wRFLX, [id number] #### [place] [address] [place] #### ALFRED CHOICE, RA #### [facility] , Urea nitrogen [Mass/Vol] 12 mg/dL Normal 7-25 [facility] Comment on above: Order Comment: PT IS FASTING Performed By: #### L IPID, CMP, CBC, TSH3 wRFLX, [id number] #### [facility] [address] #### ALFRED VASQUEZ, RA #### [facility] , Creatinine [Mass/volume] in Serum or PlasmaOrdered By: Page Magaña on 10-27-2022 Creatinine [Mass/Vol] 0.62 mg/dL 0.60-1.20 [facility] Eosinophils Auto (Bld) [#/Vo l]Ordered By: Page Magaña on 10-27-2022 Eosinophils (Bld) [#/Vol] 0.1 10*3/uL 0.0-0.45 [facility] Eosinophils/100 WBC Auto (Bl d)Ordered By: Page Magaña on 10-27-2022 Eosinophils/100 WBC (Bld) 1.6 % . [facility] Erythrocyte distribution wid th Auto (RBC) [Ratio]Ordered By: Page Magaña on 10-27-2022 Erythrocyte distribution width (RBC) [Ratio] 14.4 % 11.9-15.3 [facility] Globulin Calc (S) [Mass/Vol] Ordered By: Page Magaña on 10-27-2022 Globulin (S) [Mass/Vol] 2.3 g/dL [facility] Glucose [Mass/volume] in Ser um or PlasmaOrdered By: Page Magaña on 10-27-2022 Glucose [Mass/Vol] 93 mg/dL 70-100 [facility] Comment on above: ADA recommended refe rence rangeRandom Glucose Reference Range is dependent on time and content of last meal. Glucose of more than 200 mg/dL in a nonstressed, ambulatory subject supports the diagnosis of Diabetes Mellitus. Hematocrit Auto (Bld) [Volum e fraction]Ordered By: Page Magaña on 10-27-2022 Hematocrit (Bld) [Volume fraction] 40.5 % 34.0-46.4 [facility] Hemoglobin [Mass/volume] in BloodOrdered By: Page Magaña on 10-27-2022 Hemoglobin (Bld) [Mass/Vol] 13.5 g/dL 11.8-15.4 [facility] Leukocytes [#/volume] correc mague for nucleated erythrocytes in Blood by Automated counOrdered By: Page Magaña on 10-27-2022 WBC corrected for nucl RBC Auto (Bld) [#/Vol] 9.1 10*3/uL 3.8-11.6 [facility] Lipid Panelon 10-27-2022 Cholesterol [Mass/Vol] 209 mg/dL High 140-200 [facility] Comment on above: Order Comment: PT IS FASTING Result Comment: Chol less than 200 mg/dl low risk Chol 201-239 mg/dl borderline risk Chol 240 mg/dl and greater high risk Performed By: #### L IPID, CMP, CBC, TSH3 wRFLX, [id number] #### [facility] [address] [place] [address] #### ALFRED CHRISTINA, RA #### [facility] , Cholesterol in HDL [Mass/Vol] 43 mg/dL Normal 35-85 [facility] Comment on above: Order Comment: PT IS FASTING Result Comment: HDL CHOL ATP-III CLASSIFICATION Cardiovascular Risk HDL > or equal to 60 mg/dL LOW HDL < 40 mg/dL HIGH Performed By: #### L IPID, CMP, CBC, TSH3 wRFLX, [id number] #### [facility] [address] [place] [address] [place] #### ALFRED CHOICE, RA #### [facility] , Cholesterol.total/Poonam sterol in HDL [Mass ratio] 4.9 {ratio} Normal <5.0 [facility] Comment on above: Order Comment: PT IS FASTING Performed By: #### L IPID, CMP, CBC, TSH3 wRFLX, [id number] #### [facility] [address] [place] [address] [place] #### ALFRED CHOICE, RA #### [facility] , LDL Cholesterol,Calculated 155 mg/dL High 0-100 [facility] Comment on above: Order Comment: PT IS FASTING Result Comment: LDL ATP III CLASSIFICATION LDL less than 100 mg/dL Optimal LDL 100-129 mg/dL Near or above optimal LDL 130-159 mg/dL Borderline high LDL 160-189 mg/dL High LDL greater than 189 mg/dL Very high Performed By: #### L IPID, CMP, CBC, TSH3 wRFLX, [id number] #### [place] [address] [place] #### ALFRED CHOICE, RA #### [facility] , Triglyceride w/Reflex 55 mg/dL Normal 0-149 [facility] Comment on above: Order Comment: PT IS FASTING Result Comment: TRIG ATP III CLASSIFICATION TRIG less than 150 mg/dL Normal TRIG 150-199 mg/dL Borderline high TRIG 200-500 mg/dL High TRIG greater than 500 mg/dL Very high Standard traceable to the Center for Disease Conrtrol and Prevention (CDC) test method. Performed By: #### L IPID, CMP, CBC, TSH3 wRFLX, [id number] #### [place] [address] [place] #### ALFRED CHRISTINA, RA #### [facility] , VLDL CHOLESTEROL 11 mg/dL Normal [facility] Comment on above: Order Comment: PT IS FASTING Performed By: #### L IPID, CMP, CBC, TSH3 wRFLX, [id number] #### [place] [address] [place] #### ALFRED CHOICE, RA #### [facility] , Lymphocytes Auto (Bld) [#/Vo l]Ordered By: Page Magaña on 10-27-2022 Lymphocytes (Bld) [#/Vol] 2.8 10*3/uL 1.00-4.8 [facility] Lymphocytes/100 WBC Auto (Bl d)Ordered By: Page Magaña on 10-27-2022 Lymphocytes/100 WBC (Bld) 30.3 % . [facility] MCH Auto (RBC) [Entitic mass ]Ordered By: Page Magaña on 10-27-2022 MCH (RBC) [Entitic mass] 28.1 pg 24.7-34.3 [facility] MCHC Auto (RBC) [Mass/Vol]Or dered By: Page Magaña on 10-27-2022 MCHC (RBC) [Mass/Vol] 33.3 g/dL 32.0-35.0 [facility] MCV Auto (RBC) [Entitic vol] Ordered By: Page Magaña on 10-27-2022 MCV (RBC) [Entitic vol] 84.6 fL 80-[address] [facility] Monocytes Auto (Bld) [#/Vol] Ordered By: Page Magaña on 10-27-2022 Monocytes (Bld) [#/Vol] 0.6 10*3/uL 0.0-0.8 [facility] Monocytes/100 WBC Auto (Bld) Ordered By: Page Magaña on 10-27-2022 Monocytes/100 WBC (Bld) 6.7 % . [facility] Neutrophils Auto (Bld) [#/Vo l]Ordered By: Page Magaña on 10-27-2022 Neutrophils (Bld) [#/Vol] 5.5 10*3/uL 1.8-7.7 [facility] Neutrophils/100 WBC Auto (Bl d)Ordered By: Page Magaña on 10-27-2022 Neutrophils/100 WBC (Bld) 60.8 % . [facility] No Panel InformationOrdered By: Page Magaña on 10-27-2022 Estimated GFR (CKD-EPI) > 60.0 mL/Min [facility] Creatinine Clearance (Chem N/A [facility] Nucleated erythrocytes [Pres ence] in Blood by Automated countOrdered By: Page Magaña on 10-27-2022 Nucleated RBC Auto Ql (Bld) 0.3 /100{WBC} 0-0.5 [facility] Platelet mean volume Auto (B ld) [Entitic vol]Ordered By: Page Magaña on 10-27-2022 Platelet mean volume (Bld) [Entitic vol] 8.9 fL 6.3-10.7 [facility] Platelets Auto (Bld) [#/Vol] Ordered By: Page Magaña on 10-27-2022 Platelets (Bld) [#/Vol] 246 10*3/uL 150-450 [facility] Potassium [Moles/volume] in Serum or PlasmaOrdered By: Page Magaña on 10-27-2022 Potassium [Moles/Vol] 4.3 mmol/L 3.5-5.1 [facility] Protein [Mass/volume] in Ser um or PlasmaOrdered By: Page Magaña on 10-27-2022 Protein [Mass/Vol] 6.5 g/dL 6.4-8.9 [facility] RBC Auto (Bld) [#/Vol]Ordere d By: Page Magaña on 10-27-2022 RBC (Bld) [#/Vol] 4.79 10*6/uL 3.60-5.00 [facility] Rheumatoid Factoron 10-28-19 Rheumatoid Factor <10.0 Normal <14.0 [facility] Comment on above: Result Comment: Perf ormed at: CB - [facility] [place] [id number] Learning Officer: Ismael Suh PhD, Phone: [phone] Performed By: #### F FN #### [facility] [address] Serum or plasma albumin/glob ulin mass ratioOrdered By: Page Magaña on 10-27-2022 Albumin/Globulin [Mass ratio] 1.8 {ratio} [facility] Serum or plasma anion gap de terminationOrdered By: Page Magaña on 10-27-2022 Anion gap [Moles/Vol] 10.6 mmol/L 6.0-15.0 [facility] Serum or plasma high density lipoprotein (HDL) cholesterol measurementOrdered By: Page Magaña on 10-27-2022 Cholesterol in HDL [Mass/Vol] 43 mg/dL 35-85 [facility] Comment on above: HDL CHOL ATP-III CLA SSIFICATION Cardiovascular RiskHDL > or equal to 60 mg/dL LOWHDL < 40 mg/dL HIGH Serum or plasma total choles terol/high density lipoprotein (HDL) cholesterol mass ratOrdered By: Page Magaña on 10-27-2022 Cholesterol.total/Poonam sterol in HDL [Mass ratio] 4.9 {ratio} <5.0 [facility] Sodium [Moles/volume] in Ser um or PlasmaOrdered By: Page Magaña on 10-27-2022 Sodium [Moles/Vol] 138 mmol/L 136-145 [facility] Thyroid Stim Hormone w/Rflxo n 10-27-2022 Thyroid Stim Hormone w/Rflx 0.76 u[iU]/mL Normal 0.45-5.33 [facility] Comment on above: Order Comment: PT IS FASTING Performed By: #### L IPID, CMP, CBC, TSH3 wRFLX, [id number] #### [facility] [address] #### ALFRED CHOICE, RA #### [facility] , Thyrotropin [Units/volume] i n Serum or PlasmaOrdered By: Page Magaña on 10-27-2022 TSH Qn 0.76 m[IU]/L 0.45-5.33 [facility] Triglyceride [Mass/volume] i n Serum or PlasmaOrdered By: Page Magaña on 10-27-2022 Triglyceride [Mass/Vol] 55 mg/dL 0-[address] [facility] Comment on above: TRIG ATP III CLASSIF ICATIONTRIG less than 150 mg/dL NormalTRIG 150-199 mg/dL Borderline highTRIG 200-500 mg/dL High TRIG greater than 500 mg/dL Very highStandard traceable to the Center for Disease Conrtrol and Prevention (CDC) test method. Urea nitrogen [Mass/volume] in Serum or PlasmaOrdered By: Page Magaña on 10-27-2022 Urea nitrogen [Mass/Vol] 12 mg/dL 7-25 [facility] Vitamin D 25 Hydroxy Totalon 10-27-2022 Vitamin D 25 Hydroxy Total 22.1 ng/mL Low 30-100 [facility] Comment on above: Order Comment: Comme nt patients 22 - 34 6/7 weeks prior to vaginal exam Result Comment: HARVINDER MIN D STATUS 25(OH)VITAMIN D RANGE (ng/mL) Deficient <20 Insufficient 20 to <30 Sufficient 30 to 100 Reference: Helen MF,Lino PAGE, Gildardo MARTELL, et al. Evaluation,treatment, and prevention of vitamin D deficiency; an Endocrine Society clinical practice guideline. JCEM. 2010; 96(7):191-. PERFORMED BY: [facility] [address] [place] [address] PATHOLOGIST CONSERVATION WORKER JERRY CASTRO M.D. Performed By: #### F FN #### [address] Vitamin D+Metabolites [Mass/ volume] in Serum or PlasmaOrdered By: Page Magaña on 10-27-2022 Vitamin D+Metabolites [Mass/Vol] 22.1 ng/mL 30-100 [facility] Comment on above: VITAMIN D STATUS 25( OH)VITAMIN D RANGE (ng/mL) Deficient <20 Insufficient 20 to <30Sufficient 30 to 100Reference: Helen GARBER,Lino PAGE, Gildardo MARTELL, et al. Evaluation,treatment, and prevention of vitamin D deficiency; an Endocrine Society clinical practice guideline. JCEM. 2010; 96(7):1911-. WBC Auto (Bld) [#/Vol]Ordere d By: Page Magaña on 10-27-2022 WBC (Bld) [#/Vol] 9.1 10*3/uL 3.8-11.6 [facility] Vital Signs Date Time Vital Sign Value Performing Clinician Facility 06-28-2023 05:30-0500 Body temperature 98.8 [degF] DO Sallie Magaña Work Phone: [facility] 06-28-2023 05:30-0500 Diastolic blood pressure 79 mm[Hg] DO Sallie Magaña Work Phone: [facility] 06-28-2023 05:30-0500 Heart rate 80 /min DO Sallie Magaña Work Phone: [facility] 06-28-2023 05:30-0500 Respiratory rate 20 /min DO Sallie Magaña Work Phone: [facility] 06-28-2023 05:30-0500 SaO2% (BldA) [Mass fraction] 98 % DO Sallie Magaña Work Phone: [facility] 06-28-2023 05:30-0500 Systolic blood pressure 121 mm[Hg] DO Sallie Magaña Work Phone: [facility] 06-26-2023 20:49-0500 Body height 152.4 cm DO Sallie Magaña Work Phone: [facility] 06-26-2023 20:49-0500 Body weight 74.38 kg DO Sallie Magaña Work Phone: [phone] [place] [address] 01-24-2023 13:44-0400 Diastolic blood pressure 73 mm[Hg] DO Sallie Magaña Work Phone: 8([phone] [place] [address] 01-24-2023 13:44-0400 Heart rate 104 /min DO Sallie Magaña Work Phone: [phone](969)[phone] [place] [address] 01-24-2023 13:44-0400 Respiratory rate 16 /min DO Sallie Magaña Work Phone: [facility] 01-24-2023 13:44-0400 SaO2% (BldA) [Mass fraction] 98 % DO Sallie Magaña Work Phone: [facility] 01-24-2023 13:44-0400 Systolic blood pressure 117 mm[Hg] DO Sallie Magaña Work Phone: [facility] 01-24-2023 10:11-0400 Body height 152.4 cm DO Sallie Magaña Work Phone: [facility] 01-24-2023 10:11-0400 Body temperature 98.5 [degF] DO Sallie Magaña Work Phone: [facility] 01-24-2023 10:11-0400 Body weight 67.58 kg DO Sallie Magaña Work Phone: [facility] 11-08-2022 15:30-0400 Body height 147.96 cm Hilario Reynolds Other [facility] Other 11-08-2022 15:30-0400 Body mass index (BMI) [Ratio] 34.23 kg/m2 Hilario Hearddiff Other [facility] Other 11-08-2022 15:30-0400 Body weight 74.93 kg Hilario Hearddiff Other [facility] Other 11-08-2022 15:30-0400 Diastolic blood pressure 90 mm[Hg] Hilario Hearddiff Other [facility] Other 11-08-2022 15:30-0400 Respiratory rate 18 /min Hilario Hearddiff Other [facility] Other 11-08-2022 15:30-0400 SaO2% (BldA) [Mass fraction] 97 % Hilario Hearddiff Other [facility] Other 11-08-2022 15:30-0400 Systolic blood pressure 135 mm[Hg] Hilario Hearddiff Other [facility] Other Encounters Encounter Date Encounter Type Care Provider Facility Start: 07-04-2023 End: 07-04-2023 ambulatory EDGAR ERWIN Not Available Start: 06-29-2023 ambulatory Alfredo LANDIN [facility] [place] Start: 06-27-2023 End: 06-28-2023 ambulatory Alfredo LANDIN Facility:CD:[id number] Start: 06-26-2023 End: 06-28-2023 ambulatory Sallie Magaña Facility:[facility] Start: 06-26-2023 End: 06-28-2023 Evaluation and management of inpatient DO Sallie Magaña Work Phone: [facility] Work Phone: Start: 06-26-2023 End: 06-28-2023 observation encounter DO Sallie Magaña Work Phone: [facility] Work Phone: Start: 06-06-2023 End: 06-06-2023 ambulatory PagePrabha Sheehan Archana Facility:[facility] Start: 06-06-2023 End: 06-06-2023 Patient encounter procedure DO Sallie Magaña Work Phone: [facility] [place] Work Phone: Start: 05-29-2023 End: 05-29-2023 ambulatory BRANDON CAMARGO Not Available Start: 05-06-2023 End: 05-06-2023 ambulatory PagePrabha Aguila Magaña Facility:[facility] Start: 05-06-2023 End: 05-06-2023 ambulatory DO Sallie Magaña Work Phone: [facility] Work Phone: Start: 05-06-2023 End: 05-06-2023 Patient encounter procedure DO Sallie Magaña Work Phone: [facility] [place] Work Phone: Start: 01-24-2023 End: 01-24-2023 Emergency department patient visit DO Sallie Magaña Work Phone: [facility] Work Phone: Start: 12-20-2022 End: 12-21-2022 ambulatory Hilario Reynolds Facility:[facility] Start: 12-20-2022 Registered Recurring DO Sallie Helms slava Archana Work Phone: [facility] Management Work Phone: Start: 11-08-2022 End: 11-08-2022 ambulatory Hilario Reynolds Other [facility] Other Start: 11-08-2022 Nutrition therapy Hilario Reynolds [facility] Start: 10-27-2022 End: 10-27-2022 ambulatory Sallie Magaña Facility:[facility] Start: 10-27-2022 End: 10-27-2022 ambulatory DO Sallie Magaña Work Phone: [facility] Work Phone: Start: 10-27-2022 End: 10-27-2022 Patient encounter procedure DO Sallie Magaña Work Phone: [facility] [place] Work Phone: Procedures Date Procedure Procedure Detail Performing Clinician Start: 06-26-2023 Ultrasonography of b ilateral kidneys DO Sallie Magaña Work Phone: Plan of Treatment Date Care Activity Detail Author Start: 01-02-2024 ambulatory Ambulatory Facility:[facility] [place] Start: 06-28-2023 [facility] Start: 06-26-2023 Referral [address] urologist [facility] Start: 06-26-2023 Hospital admission [facility] Start: 01-24-2023 Diagnostic ultrasoun d of gravid uterus [facility] Start: 01-24-2023 Ultrasonography of b ilateral kidneys US renal BI [facility] Start: 01-24-2023 US Kidney - bilateral F [facility] Start: 01-24-2023 Transvaginal obstetr ic ultrasonography [facility] Cefuroxime free [Mas s/volume] in Serum or Plasma [facility] Patient Education [facility] Work Phone: Patient referral [facility] Work Phone: Rheumatoid factor [Units/volume] in Serum or Plasma [facility] Payers Date Payer Category Payer Self-pay [id number] 2022 Unknown [id number] 1990 Unknown [id number] [id number] 1990 Unknown [id number] 1259 1990 Unknown [id number] Medicaid [place] [employer] [id number] Private Health Insurance [facility] [id number] Unknown [id number] Unknown [id number] 531 Unknown [id number] 531 Unknown [id number] 531 Unknown [id number] 531 Unknown [id number] [id number] 531 Unknown [id number] 531 Worker's Compensation [facility] [id number] Social History Date Type Detail Facility Start: 05-01-2020 End: 06-27-2023 Tobacco smoking status NHIS Never smoked tobacco (finding) [facility] Start: 1990 Sex Assigned At Female F [facility] Sex Assigned At Sex Assigned At Bir th [facility] Other Goals Date Patient Goal Desired Activity /State Consult note 06-27-2023 Note Date & Type Note Facility 06-27-2023 Consult note Note Date/Time June 27, 2023 2:48pm [facility] [address] [place] [address] Urology Consult Note Signed Patient: Elyssa Smith MR#: [id number] : 1990 Acct:[id number] Age/Sex: 33 / F Adm Date: 3 Loc: 3E Room: 6Q7793-7 Type: ADM INOo Attending Dr: Emerald Martinez [...] P documented by Dr. Martinez earlier today [facility] Medical History (Updated 06/27/23 @ 07:15 by [...] % (Auto) 87.1, Lymph % (Auto) 8.3, [place] % (Auto) 4.2, Eos % (Auto)0.2, Baso % (Auto) 0.2, Nucleat RBC Rel Count 0.1, Neut # (Auto) 11.9 H, Lymph #(Auto) 1.1, [place] # (Auto) 0.6, Eos # (Auto) 0.0, Baso # (Auto) 0.0 06/26/23 20:07: Fibronectin Negative 06/26/23 19:20: Urine Opiates Screen Negative, Ur Barbiturates Screen Negative, Ur Phencyclidine Scrn Negative, Ur Amphetamines Screen Negative, U Benzodiazepines Scrn Negative, Urine Cocaine Screen Negative 06/26/23 19:20: Urine Color Yellow, Urine Appearance Clear, Urine pH 6.5, Ur Specific [place] 1.009, Urine Protein Trace H, Urine Glucose [...] <Electronically signed by MD Alfredo Landin> 06/27/[address] [facility] Work Phone: History and physical note 06-27-2023 Note Date & Type Note Facility 06-27-2023 History and physi pradip note Note Date/Time June 27, 2023 7:10am [facility] [address] [place] [address] PROCESS MECHANIC History & Physical Signed Patient: Elyssa Smith MR#: [id number] : 1990 Acct:[id number] Age/Sex: 33 / F Adm Date: 3 Loc: Room: [address] [place] [address] Type: REG CLI Attending Dr: Emerald Martinez [...] pain is controlledwith IV pain meds. OB [facility] Medical History (Updated 06/27/23 @ 07:15 by [...] % (Auto) 87.1, Lymph % (Auto) 8.3, [place] % (Auto) 4.2, Eos % (Auto)0.2, Baso % (Auto) 0.2, Nucleat RBC Rel Count 0.1, Neut # (Auto) 11.9 H, Lymph #(Auto) 1.1, [place] # (Auto) 0.6, Eos # (Auto) 0.0, Baso # (Auto) 0.0 06/26/23 20:07: Fibronectin Negative 06/26/23 19:20: Urine Opiates Screen Negative, Ur Barbiturates Screen Negative, Ur Phencyclidine Scrn Negative, Ur Amphetamines Screen Negative, U Benzodiazepines Scrn Negative, Urine Cocaine Screen Negative 06/26/23 19:20: Urine Color Yellow, Urine Appearance Clear, Urine pH 6.5, Ur Specific [place] 1.009, Urine Protein Trace H, Urine Glucose [...] currently. She does see Dr. Erwin in [place] for her care (2) Right kidney stone: Plan: Urology has been consulted- awaiting recommendations (3) Hydronephrosis, right: Plan: Urology has been consulted-awaiting recommendations Documented By: Emerald Martinez DO 06/27/23 07 06 Signed By: <Electronically signed by Emerald Martinez DO> 06/27/[address] [facility] Work Phone: Evaluation note 11-08-2022 Note Date & Type Note Facility 11-08-2022 Evaluation note Encounter Date Diagnosis Assessment Notes November, Abnormal weight gain (ICD-10 - R63.5) November, Mixed hyperlipidemia (ICD-10 - E78.2) November, Anxiety (ICD-10 - F41.9) November, Asthma (ICD-10 - J45.909) 02 May, 2023 Kidney stones (ICD-10 - N20.0) [facility] Other Evaluation note Note Date & Type Note Facility Evaluation note No assessment information availa brannon [facility] Work Phone: Evaluation note Note Date & Type Note Facility Evaluation note Diagnosis Onset Date 26 weeks gestation of acute Hydronephrosis, right acute Right kidney stone acute [facility] Work Phone: History general Narrative - Reported Note Date & Type Note Facility History general Narrative - Reported Type Medical History asthma Surgical History C section x 2 Surgical History kidney stones Surgical History IUD removed Hospitalization History see surgical hx [facility] Other Hospital Discharge instructions Note Date & Type Note Facility Hospital Discharge instructions Additional Instructions Follow-up with your primary care doctor and OB-DIRECTOR OF WORKFORCE DEVELOPMENT Return to ED if you develop worsening symptoms or concerns [facility] Work Phone: Hospital Discharge instructions Note Date & Type Note Facility Hospital Discharge instructions Additional Instructions Follow up with Dr. Erwin [facility] Work Phone: Progress note Note Date & Type Note Facility Progress note Note Date/Time June 28, 2023 7:43am [facility] [address] [place] [address] PROCESS MECHANIC Progress Note Signed Patient: Elyssa Smith MR#: [id number] : 1990 Acct:[id number] Age/Sex: 33 / F Adm Date: 3 Loc: Room: [address] [place] [address] Type: ADM INOo Attending Dr: Emerald Martinez [...] signed by MD KIKI BEAL> 06/28/[address] [facility] Work Phone: Chief Complaint and Reason [...] Magaña , DO Primary Care Provider Active Sarmad Luque , DO Emergency Provider Active Donovan Brooks MD RES Active Team Status: Inactive Member Role Status Dates Sallie Magaña , DO Primary Care Provider Active Latrice Sepulveda MD Attending Provider Active Team Status: Inactive Member Role Status Dates Sallie Magaña , DO Primary Care Provider Active Emerald Martinez [...] section and content) DATE CREATED AUTHOR 07/06/2023 [facility] DATE CREATED AUTHOR AUTHOR'S ORGANIZ ATION 07/07/2023 [facility] DATE CREATED AUTHOR AUTHOR'S ORGANIZ ATION 07/15/2023 [facility] FOR RECORDS PERTAINING TO PATIENTS WHO [...] BE BASED ON THE PRIMARY CLINICAL RECORDS. [employer] provides no warranty or guarantee of the accuracy or completeness of information in this document.
== END 2023-07-17 08:04 | disposition home or self-care (01) ==
LOC: US 08:03
PROVIDERS: Visit Provider Obstetrics & Gynecology
DX: O26.843 Uterine size-date discrepancy, third trimester (principal); Z3A.29 29 weeks gestation of pregnancy
CPT/HCPCS: 76816

== ENCOUNTER 2023-08-14 08:40 | Outpatient (OUT) | payer OTHER, SELFPAY ==
--- NOTE | 2023-08-14 08:43 | US_ITS ---
[address] [address] Patient Name: CARMEN DE LA CRUZ MRN: [id number] date: 1990 Sex: F Assigned Patient Location: [facility] Current Patient Location: [facility] Accession/Order Number: [id number] Exam Date: 08/14/2023 08:44 Report Date: 08/14/2023 09:25 At the request of: EDGAR FERRELL Procedure: US OB growth EXAMINATION: US OB growth HISTORY: MD CARRIER, HISTORY OF LABOR COMPARISON: No relevant comparison available. FINDINGS: Heart Rate: 158.0 bpm Amniotic Fluid Volume: 10.8 cm Number: 1.0 Position: Cephalic presentation, longitudinal lie Maximum Vertical Pocket: 3.7 cm cm 2.2 cm cm 3.0 cm cm 1.9 cm cm BIOMETRY: BPD: 7.6 cm cm; 30 weeks 3 days; < 3% HC: 28.1 cmcm; 30 weeks 5 days , < 3% AC: 29.2 cm cm; 33 weeks 2 days, 54% FL: 6.1 cm cm; 31 weeks 4 days; 7.2 % % EFW: 1928.1 grams 4 pounds, 4 ounces, 17% FL/AC: 20.8 FL/BPD: 80.0 HC/AC: 1.0 GESTATIONAL AGE: Age by EDC: 33 weeks 1 days PHILIP by EDC: 10/01/2023 Age by US: 31 weeks 4 days PHILIP by US: 10/12/2023 US/US OB growth IMPRESSION: BPD and head circumference less than the 3rd percentile Estimated weight 17% Electronically authenticated by: MARTY KO Date: 08/14/2023 09:25
--- OUTSIDE RECORDS SUMMARY | 2023-08-14 08:45 | XMS_ITS | CCD ---
Author Name Unknown Address [address] [place] [address] Organization [facility] Care Team Providers Care Assistant Tennis Professional Name Role Phone DO Sallie Magaña Primary [...] LANDIN Referring Unavailable Alfredo LANDIN Attending Unavailable EDGAR ERWIN Attending Unavailable EDGAR ERWIN Attending Unavailable BRANDON CAMARGO Attending Unavailable EDGAR ERWIN Attending Unavailable Unavailable Primary Care Provider UnavailCAMILA Jones Referring Unavailable Allergies Allergy Classification Reported Allergen(s) Allergy Type Date of Onset Reaction(s) Facility (9 sources) Dicyclomine; Translations: [dicyclomine] Drug Allergy 6 Other (See Comments) [facility] (6 sources) Fish Oils; Translations: [fish oil] Drug Allergy 0 [facility] (6 sources) Gluten; Translations: [gluten] Propensity to adverse reactions 0 Nausea [facility] (1 source) DHA Propensity to adverse reactions Unknown RAP Index Other (2 sources) Pnv 029-Gmqzj-Lpylk -3-Fish Oil; Translations: [PNV 718-OYFFM-KPROA -3-FISH OIL] Propensity to adverse reactions to drug 6 [facility] Medications Current Medications Medication Drug Class(es) Dates [...] 1 tablet Orally Once a day Active cholecalciferol, vitamin D3, (VITAMIN D3 ORAL) (1 source) cholecalciferol, vitamin D3, (VITAMIN D3 ORAL) Take by mouth. 0 Active ferrous sulfate (1 source) ferrous sulfate (IRON ORAL) Take by mouth. 0 Active PNV95/FERROUS FUMARATE/FA ( ORAL) (1 source) take 1 tablet by sary th once daily PNV95/FERROUS FUMARATE/FA ( ORAL) Take 1 tablet by mouth daily. 0 Active Semaglutide (4 sources) Start: 01-24-2023 inject [...] 4:22am Niacin (1 source) Nicotinic Acid Niacin Not-Ora g oseltamivir 75 mg oral capsule (5 sources) Neuraminidase Inhibitor Start: 09-22-19 End: 09-29-19 take 1 capsule by mouth once daily Oseltamivir (Tamiflu) 75 mg capsule Discontinued 75 MG PO Daily 7 September 20, 2018 11:00pm September 27, 2018 11:03pm sertraline 50 mg oral tablet (5 sources) Serotonin Reuptake Inhibitor Start: 05-01-20 End: 01-25-20 23 take 1 tablet by mouth once daily [...] D deficiency, unspecified] Onset: 06-06-2023 Chronic Other complications of (1 source) Supervision of other high risk pregnancies, unspecified trimester; Translations: [Supervision of other high risk pregnancies, unspecified trimester] Onset: 08-03-2023 Episodic Other diseases of kidney and ureters [...] ; Translations: [ state, incidental] 06-28-2023 Episodic Residual codes; unclassified (1 source) History of uterine scar from previous surgery; Translations: [History of uterine scar from previous surgery] Onset: 08-03-2023 Episodic Superficial injury; contusion (10 sources) Contusion [...] [Unspecified abdominal pain] Onset: 01-24-2023 Episodic Other complications of (1 source) High risk ; Translations: [Supervision of other high risk pregnancies, third trimester] Onset: 06-21-2016 06-21-2016 Episodic Other complications of (1 source) Supervision of other high risk pregnancies, third trimester; Translations: [Supervision of other high risk pregnancies, third trimester] Onset: 06-21-2016 Episodic Other hematologic conditions (1 source) Elevated erythrocyte sedimentation rate; Translations: [Elevated erythrocyte sedimentation rate] Onset: 10-27-2022 Episodic Other nutritional; endocrine; and metabolic disorders (2 sources) Abnormal weight gain; Translations: [Abnormal weight gain] Onset: 10-27-2022 Episodic Other screening for suspected conditions (not mental disorders or infectious disease) (1 source) ultrasound increased nuchal translucency; Translations: [Encounter for screening for nuchal translucency] Onset: 06-21-2016 06-21-2016 Episodic Residual codes; unclassified (1 source) ultrasound scan abnormal; Translations: [Pyelectasis of fetus on ultrasound] Onset: 06-21-2016 06-21-2016 Episodic Results Test Name Value Interpretation Reference Range Facility [facility] 07-14-2023 Lab Reports [id number]#1 .00TIFF Normal [facility] Insurance Correspondence Off iceon 06-30-2023 Insurance Correspondence Office [id number]# 1.00TIFF Normal [facility] Report[facility] 06-30-2023 Lab Reports [id number]# 1.00TIFF Normal [facility] RAD - Ultrasound Reporton RAD - Ultrasound Report [id number]#1 .00TIFF Normal [facility] 06-29-2023 Lab Reports [id number]#1 .00TIFF Normal [facility] Consultation Noteon 06-28-20 Consultation Note [id number]#1 .00TIFF Normal [facility] Complete Blood Count Auto Di ffon 06-27-2023 Basophils (Bld) [#/Vol] 0.0 10*3/uL Normal 0.0-0.2 [facility] Comment on above: Result Comment: PERF ORMED BY: [facility] [address] [facility] [place] [address] PATHOLOGIST MANUFACTURING SPECIALIST JERRY CASTRO M.D. Performed By: #### C BC, CMP ####[place] [id number] [address] Basophils/100 WBC (Bld) 0.2 % Normal . [facility] Comment on above: Performed By: #### C BC, CMP ####[facility] Eosinophils (Bld) [#/Vol] 0.0 10*3/uL Normal 0.0-0.45 [facility] Comment on above: Performed By: #### C BC, CMP ####[facility] Eosinophils/100 WBC (Bld) 0.2 % Normal . [facility] Comment on above: Performed By: #### C SAPPHIRE, CMP ####[address] Erythrocyte distribution width (RBC) [Ratio] 13.4 % Normal 11.9-15.3 [facility] Comment on above: Performed By: #### C SAPPHIRE, CMP ####[address] Hematocrit (Bld) [Volume fraction] 33.5 % Low 34.0-46.4 [facility] Comment on above: Performed By: #### C SAPPHIRE, CMP ####[address] Hemoglobin (Bld) [Mass/Vol] 11.3 g/dL Low 11.8-15.4 [facility] Comment on above: Performed By: #### C SAPPHIRE, CMP ####[address] Lymphocytes (Bld) [#/Vol] 1.1 10*3/uL Normal 1.00-4.8 [facility] Comment on above: Performed By: #### C SAPPHIRE, CMP ####[address] Lymphocytes/100 WBC (Bld) 8.3 % Normal . [facility] Comment on above: Performed By: #### C SAPPHIRE, CMP ####[address] MCH (RBC) [Entitic mass] 29.0 pg Normal 24.7-34.3 [facility] Comment on above: Performed By: #### C SAPPHIRE, CMP ####[address] MCV (RBC) [Entitic vol] 86.2 fL Normal 80-100 [facility] Comment on above: Performed By: #### C SAPPHIRE, CMP ####[address] Mean Corpuscular HGB Conc 33.7 g/dL Normal 32.0-35.0 [facility] Comment on above: Performed By: #### C SAPPHIRE, CMP ####[address] Monocytes (Bld) [#/Vol] 0.6 10*3/uL Normal 0.0-0.8 [facility] Comment on above: Performed By: #### C BC, CMP ####[address] Monocytes/100 WBC (Bld) 4.2 % Normal . [facility] Comment on above: Performed By: #### C SAPPHIRE, CMP ####[address] Neutrophils (Bld) [#/Vol] 11.9 10*3/uL High 1.8-7.7 [facility] Comment on above: Performed By: #### C SAPPHIRE, CMP ####[address] Neutrophils/100 WBC (Bld) 87.1 % Normal . [facility] Comment on above: Performed By: #### C SAPPHIRE, CMP ####[address] NRBC% 0.1 /100{WBC} Normal 0-0.5 [facility] Comment on above: Performed By: #### C SAPPHIRE, CMP ####[place] [id number] [facility] Platelet mean volume (Bld) [Entitic vol] 9.8 fL Normal 6.3-10.7 [facility] Comment on above: Performed By: #### C BC, CMP ####[place] [id number] [facility] Platelets (Bld) [#/Vol] 174 10*3/uL Normal 150-450 [facility] Comment on above: Performed By: #### C SAPPHIRE, CMP ####[place] [id number] [facility] RBC (Bld) [#/Vol] 3.89 10*6/uL Normal 3.60-5.00 [facility] Comment on above: Performed By: #### C BC, CMP ####[address] [address] [facility] WBC (Bld) [#/Vol] 13.6 10*3/uL High 3.8-11.6 [facility] Comment on above: Performed By: #### C BC, CMP ####[address] [address] [facility] Comprehensive Metabolic Pane mauricio 06-27-2023 Albumin [Mass/Vol] 3.4 g/dL Low 3.5-5.7 [facility] Comment on above: Performed By: #### C BC, CMP ####[address] [address] [facility] Albumin/Globulin [Mass ratio] 1.6 {ratio} Normal [facility] Comment on above: Performed By: #### C BC, CMP ####[address] [address] [facility] ALP [Catalytic activity/Vol] 88 U/L Normal 34-104 [facility] Comment on above: Performed By: #### C BC, CMP ####[address] [address] [facility] ALT [Catalytic activity/Vol] 17 U/L Normal 7-52 [facility] Comment on above: Performed By: #### C BC, CMP ####[address] [address] [facility] Anion gap [Moles/Vol] 12.5 mmol/L Normal 6.0-15.0 [facility] Comment on above: Performed By: #### C BC, CMP ####[address] [address] [facility] AST [Catalytic activity/Vol] 14 U/L Normal 13-39 [facility] Comment on above: Performed By: #### C BC, CMP ####[place] [id number] [facility] Bilirubin [Mass/Vol] 0.3 mg/dL Normal 0.3-1.0 [facility] Comment on above: Performed By: #### C BC, CMP ####[place] [id number] [facility] Calcium [Mass/Vol] 8.2 mg/dL Low 8.6-10.3 [facility] Comment on above: Performed By: #### C BC, CMP ####[place] [id number] [facility] Chloride [Moles/Vol] 105 mmol/L Normal 98-107 [facility] Comment on above: Performed By: #### C BC, CMP ####[place] [address] [address] CO2 [Moles/Vol] 23.8 mmol/L Normal 21.0-31.0 [facility] Comment on above: Performed By: #### C BC, CMP ####[address] Creatinine [Mass/Vol] 0.52 mg/dL Low 0.60-1.20 [facility] Comment on above: Performed By: #### C BC, CMP ####[place] [id number] [facility] Creatinine Clr Calc Pharmacy 138.60 [facility] Comment on above: Result Comment: PERF ORMED BY: [facility] [address] [place] [place] [id number] PATHOLOGIST MANUFACTURING SPECIALIST JERRY CASTRO M.D. Performed By: #### C BC, CMP ####[place] [id number] [facility] GFR/1.73 sq M.predicted MDRD (S/P/Bld) [Vol rate/Area] mL/min/{1.73_m2} [facility] Comment on above: Performed By: #### C BC, CMP ####[place] [id number] [facility] Globulin (S) [Mass/Vol] 2.1 g/dL Normal [facility] Comment on above: Performed By: #### C BC, CMP ####[facility] [place] [address] [facility] Glucose [Mass/Vol] 124 mg/dL High 70-100 [facility] Comment on above: Result Comment: [place] Glucose Reference Range is dependent on time and content of last meal. Glucose of more than 200 mg/dL in a nonstressed, ambulatory subject supports the diagnosis of Diabetes Mellitus. ADA recommended reference range Performed By: #### C BC, CMP ####[facility] [place] [address] [facility] Potassium [Moles/Vol] 3.3 mmol/L Low 3.5-5.1 [facility] Comment on above: Performed By: #### C BC, CMP ####[place] [address] [place] [address] [facility] Protein [Mass/Vol] 5.5 g/dL Low 6.4-8.9 [facility] Comment on above: Performed By: #### C BC, CMP ####[address] [address] [facility] Sodium [Moles/Vol] 138 mmol/L Normal 136-145 [facility] Comment on above: Performed By: #### C BC, CMP ####[facility] [place] [address] [facility] Urea nitrogen [Mass/Vol] 6 mg/dL Low 7-25 [facility] Comment on above: Performed By: #### C BC, CMP ####[address] [address] [facility] US renal BIon 06-27-2023 US renal BI [facility] Main [employer] [place] [address] [place] [address] Ultrasound Report Signed Patient: Elyssa Smith MR#: [id number] : 1990 Acct:[id number] Age/Sex: 33 / F ADM Date: 06/27/23 Loc: Room: [address] [place] [address] Type: ADM INOo Attending Dr: Emerald Rinkes DO Ordering Provider: Emerald Martinez DO Date [...] Kathleen Vaca M.D.06/27/2023 7:44 AM Dictation Location: [place] [address] Tech: Eryn Welsh Transcribed By: SILVINA 06/27/23 0744 Dictated By: Kathleen Vaca MD 06/27/23 0742 Signed By: 06/27/23 0744 Normal [facility] Alanine aminotransferase [En zymatic activity/volume] in Serum or PlasmaOrdered By: Emerald Martinez on 06-26-2023 ALT [Catalytic activity/Vol] 17 U/L 7-52 [facility] Albumin [Mass/volume] in Ser um or Plasma by Bromocresol green (BCG) dye binding methoOrdered By: Emerald Martinez on 06-26-2023 Albumin BCG dye [Mass/Vol] 3.4 g/dL 3.5-5.7 [facility] Alkaline phosphatase [Enzyma tic activity/volume] in Serum or PlasmaOrdered By: Emerald Martinez on 06-26-2023 ALP [Catalytic activity/Vol] 88 U/L 34-104 [facility] Amphetamine Screen Ql (U)Ord ered By: Emerald Martinez on 06-26-2023 Amphetamines Ql (U) Negative Negative [facility] Aspartate aminotransferase [ Enzymatic activity/volume] in Serum or PlasmaOrdered By: Emerald Martinez on 06-26-2023 AST [Catalytic activity/Vol] 14 U/L 13-39 [facility] Automated epithelial cells c ount in urine sediment (number/area)Ordered By: Emerald Martinez on 06-26-2023 Epithelial cells Auto (Urine sed) [#/Area] 10-19 [HPF] 0-2 [facility] Automated erythrocytes count in urine sediment (number/area)Ordered By: Emerald Martinez on 06-26-2023 RBC Auto (Urine sed) [#/Area] 10-19 [HPF] 0-4 [facility] Automated leukocytes count i n urine sediment (number/area)Ordered By: Emerald Martinez on 06-26-2023 WBC Auto (Urine sed) [#/Area] 0-1 [HPF] 0-4 [facility] Automated urine hyaline cast s count (number/volume)Ordered By: Emerald Martinez on 06-26-2023 Hyaline casts Auto (U) [#/Vol] None seen [LPF] 0-1 [facility] Barbiturates [Presence] in U rine by Screen methodOrdered By: Emerald Martinez on 06-26-2023 Barbiturates Screen Ql (U) Negative Negative [facility] Basophils Auto (Bld) [#/Vol] Ordered By: Emerald Martinez on 06-26-2023 Basophils (Bld) [#/Vol] 0.0 10*3/uL 0.0-0.2 [facility] Basophils/100 WBC Auto (Bld) Ordered By: Emerald Martinez on 06-26-2023 Basophils/100 WBC (Bld) 0.2 % . [facility] Benzodiazepines Screen Ql (U )Ordered By: Emerald Martinez on 06-26-2023 Benzodiazepines Ql (U) Negative Negative [facility] Benzoylecgonine [Presence] i n Urine by Screen methodOrdered By: Emerald Martinez on 06-26-2023 Benzoylecgonine Screen Ql (U) Negative Negative [facility] Bilirubin Test strip Ql (U)O rdered By: Emerald Martinez on 06-26-2023 Bilirubin Ql (U) Negative Negative [facility] Bilirubin.total [Mass/volume ] in Serum or PlasmaOrdered By: Emerald Martinez on 06-26-2023 Bilirubin [Mass/Vol] 0.3 mg/dL 0.3-1.0 [facility] Calcium [Mass/volume] in Ser um or PlasmaOrdered By: Emerald Martinez on 06-26-2023 Calcium [Mass/Vol] 8.2 mg/dL 8.6-10.3 [facility] Carbon dioxide, total [Moles /volume] in Serum or PlasmaOrdered By: Emerald Martinez on 06-26-2023 CO2 [Moles/Vol] 23.8 mmol/L 21.0-31.0 [facility] Chloride [Moles/volume] in S gris or PlasmaOrdered By: Emerald Martinez on 06-26-2023 Chloride [Moles/Vol] 105 mmol/L 98-107 [facility] Color Auto (U)Ordered By: Graciela Martinez on 06-26-2023 Color (U) Yellow Yellow [facility] Creatinine [Mass/volume] in Serum or PlasmaOrdered By: Emerald Martinez on 06-26-2023 Creatinine [Mass/Vol] 0.52 mg/dL 0.60-1.20 [facility] Dipstick and Microscopicon 1 08-27-2022 Appearance (U) Clear Normal Clear [facility] Comment on above: Order Comment: Name Collection Type:: Voided Performed By: #### O BUDS, ADDONUAPLUS #### [facility] [address] [place] [address] [place] Bacteria,Urine Rare High None Seen [facility] Comment on above: Order Comment: Name Collection Type:: Voided Performed By: #### O BUDS, ADDONUAPLUS #### [facility] [address] [place] [id number] [place] Bilirubin,Urine Negative Normal Negative [facility] Comment on above: Order Comment: Name Collection Type:: Voided Performed By: #### O BUDS, ADDONUAPLUS #### [facility] [address] [place] [id number] [place] Color (U) Yellow Normal Yellow [facility] Comment on above: Order Comment: Name Collection Type:: Voided Performed By: #### O BUDS, ADDONUAPLUS #### [facility] [address] [place] [address] Glucose Ql (U) Normal Normal Normal [facility] Comment on above: Order Comment: Name Collection Type:: Voided Performed By: #### O BUDS, ADDONUAPLUS #### [address] Hyaline Casts,Urine None Seen Normal 0-1 [facility] Comment on above: Order Comment: Name Collection Type:: Voided Performed By: #### O BUDS, ADDONUAPLUS #### [address] Ketones Ql (U) Negative Normal Negative [facility] Comment on above: Order Comment: Name Collection Type:: Voided Performed By: #### O BUDS, ADDONUAPLUS #### [address] Leukocyte esterase Test strip Ql (U) Negative Normal Negative [facility] Comment on above: Order Comment: Name Collection Type:: Voided Performed By: #### O BUDS, ADDONUAPLUS #### [place] [address] [place] Nitrite,Urine Negative Normal Negative [facility] Comment on above: Order Comment: Name Collection Type:: Voided Performed By: #### O BUDS, ADDONUAPLUS #### [address] Occult Blood,Urine 3+ High Negative [facility] Comment on above: Order Comment: Name Collection Type:: Voided Result Comment: PERF ORMED BY: [place] [address] PATHOLOGIST MANUFACTURING SPECIALIST JERRY CASTRO M.D. Performed By: #### O BUDS, ADDONUAPLUS #### [address] pH (U) 6.5 [pH] Normal 5.0-9.0 [facility] Comment on above: Order Comment: Name Collection Type:: Voided Performed By: #### O BUDS, ADDONUAPLUS #### [address] Protein,Urine Trace High Negative [facility] Comment on above: Order Comment: Name Collection Type:: Voided Performed By: #### O BUDS, ADDONUAPLUS #### [address] RBC,Urine 10-19 High 0-4 [facility] Comment on above: Order Comment: Name Collection Type:: Voided Performed By: #### O BUDS, ADDONUAPLUS #### [address] Specificy [place],Urine 1.009 Normal 1.001-1.030 [facility] Comment on above: Order Comment: Name Collection Type:: Voided Performed By: #### O BUDS, ADDONUAPLUS #### [place] [address] [place] Squamous Epithelial Cell,Urine 10-19 High 0-2 [facility] Comment on above: Order Comment: Name Collection Type:: Voided Performed By: #### O BUDS, ADDONUAPLUS #### [address] Urobilinogen,Urine Normal Normal Normal [facility] Comment on above: Order Comment: Name Collection Type:: Voided Performed By: #### O BUDS, ADDONUAPLUS #### [address] WBC LM.HPF (Urine sed) [#/Area] 0 /[HPF] Normal 0-4 [facility] Comment on above: Order Comment: Name Collection Type:: Voided Performed By: #### O BUDS, ADDONUAPLUS #### [address] Yeast,Urine Rare Critically abnormal None Seen [facility] Comment on above: Order Comment: Name Collection Type:: Voided Result Comment: PERF ORMED BY: [place] [id number] PATHOLOGIST MANUFACTURING SPECIALIST JERRY CASTRO M.D. Performed By: #### O BUDS, ADDONUAPLUS #### [address] Eosinophils Auto (Bld) [#/Vo l]Ordered By: Emerald Martinez on 06-26-2023 Eosinophils (Bld) [#/Vol] 0.0 10*3/uL 0.0-0.45 [facility] Eosinophils/100 WBC Auto (Bl d)Ordered By: Emerald Martinez on 06-26-2023 Eosinophils/100 WBC (Bld) 0.2 % . [facility] Erythrocyte distribution wid th Auto (RBC) [Ratio]Ordered By: Emerald Martinez on 06-26-2023 Erythrocyte distribution width (RBC) [Ratio] 13.4 % 11.9-15.3 [facility] Fibronectinon 06-26-20 23 Fibronectin Negative Normal Negative [facility] Comment on above: Order Comment: Comme nt patients 22 - 34 6/7 weeks prior to vaginal exam Result Comment: PERF ORMED BY: [place] [address] PATHOLOGIST MANUFACTURING SPECIALIST JERRY CASTRO M.D. Performed By: #### F FN #### [address] fibronectinOrdered By: Emerald Martinez on 06-26-2023 Fibronectin. (Vag fld) [Mass/Vol] Negative Negative [facility] Globulin Calc (S) [Mass/Vol] Ordered By: Emerald Martinez on 06-26-2023 Globulin (S) [Mass/Vol] 2.1 g/dL [facility] Glucose [Mass/volume] in Ser um or PlasmaOrdered By: Emerald Martinez on 06-26-2023 Glucose [Mass/Vol] 124 mg/dL 70-100 [facility] Comment on above: ADA recommended refe rence rangeRandom Glucose Reference Range is dependent on time and content of last meal. Glucose of more than 200 mg/dL in a nonstressed, ambulatory subject supports the diagnosis of Diabetes Mellitus. Hematocrit Auto (Bld) [Volum e fraction]Ordered By: Emerald Martinez on 06-26-2023 Hematocrit (Bld) [Volume fraction] 33.5 % 34.0-46.4 [facility] Hemoglobin [Mass/volume] in BloodOrdered By: Emerald Martinez on 06-26-2023 Hemoglobin (Bld) [Mass/Vol] 11.3 g/dL 11.8-15.4 [facility] Ketones Auto test strip (U) [Mass/Vol]Ordered By: Emerald Martinez on 06-26-2023 Ketones (U) [Mass/Vol] Negative Negative [facility] Leukocytes [#/volume] correc mague for nucleated erythrocytes in Blood by Automated counOrdered By: Emerald Martinez on 06-26-2023 WBC corrected for nucl RBC Auto (Bld) [#/Vol] 13.6 10*3/uL 3.8-11.6 [facility] Lymphocytes Auto (Bld) [#/Vo l]Ordered By: Emerald Martinez on 06-26-2023 Lymphocytes (Bld) [#/Vol] 1.1 10*3/uL 1.00-4.8 [facility] Lymphocytes/100 WBC Auto (Bl d)Ordered By: Emerald Martinez on 06-26-2023 Lymphocytes/100 WBC (Bld) 8.3 % . [facility] MCH Auto (RBC) [Entitic mass ]Ordered By: Emerald Martinez on 06-26-2023 MCH (RBC) [Entitic mass] 29.0 pg 24.7-34.3 [facility] MCHC Auto (RBC) [Mass/Vol]Or dered By: Emerald Martinez on 06-26-2023 MCHC (RBC) [Mass/Vol] 33.7 g/dL 32.0-35.0 [facility] MCV Auto (RBC) [Entitic vol] Ordered By: Emerald Martinez on 06-26-2023 MCV (RBC) [Entitic vol] 86.2 fL 80-100 [facility] Monocytes Auto (Bld) [#/Vol] Ordered By: Emerald Martinez on 06-26-2023 Monocytes (Bld) [#/Vol] 0.6 10*3/uL 0.0-0.8 [facility] Monocytes/100 WBC Auto (Bld) Ordered By: Emerald Martinez on 06-26-2023 Monocytes/100 WBC (Bld) 4.2 % . [facility] Neutrophils Auto (Bld) [#/Vo l]Ordered By: Emerald Martinez on 06-26-2023 Neutrophils (Bld) [#/Vol] 11.9 10*3/uL 1.8-7.7 [facility] Neutrophils/100 WBC Auto (Bl d)Ordered By: Emerald Martinez on 06-26-2023 Neutrophils/100 WBC (Bld) 87.1 % . [facility] Nitrite Test strip Ql (U)Ord ered By: Emerald Martinez on 06-26-2023 Nitrite Ql (U) Negative Negative [facility] No Panel InformationOrdered By: Emerald Martinez on 06-26-2023 Estimated GFR (CKD-EPI) > 60.0 mL/Min [facility] Creatinine Clearance (Chem 138.60 [facility] Nucleated erythrocytes [Pres ence] in Blood by Automated countOrdered By: Emerald Martinez on 06-26-2023 Nucleated RBC Auto Ql (Bld) 0.1 /100{WBC} 0-0.5 [facility] OB Urine Drug Screen (NO THC )on 06-26-2023 Amphetamine Screen,Urine Negative Normal Negative [facility] Comment on above: Performed By: #### O BUDS, ADDONUAPLUS #### [facility] [address] [place] [address] [place] Barbiturate Screen,Urine Negative Normal Negative [facility] Comment on above: Performed By: #### O BUDS, ADDONUAPLUS #### [facility] [address] [place] [address] [place] Benzodiazepines Screen,Urine Negative Normal Negative [facility] Comment on above: Performed By: #### O BUDS, ADDONUAPLUS #### [facility] [address] [place] [address] [place] Cocaine Screen,Urine Negative Normal Negative [facility] Comment on above: Performed By: #### O BUDS, ADDONUAPLUS #### [facility] [address] Opiate Screen,Urine Negative Normal Negative [facility] Comment on above: Performed By: #### O BUDS, ADDONUAPLUS #### [facility] [address] Phencyclidine Screen, Urine Negative Normal Negative [facility] Comment on above: Result Comment: Thes e are unconfirmed results and should not be used for legal purposes. Drug Cut-Off Concentration: AMPH 1000 ng/mL DORIS 200 ng/mL LEANNE 200 ng/mL COCM 300 ng/mL OP 300 ng/mL PCP 25 ng/mL PERFORMED BY: [place] [address] PATHOLOGIST MANUFACTURING SPECIALIST JERRY CASTRO M.D. Performed By: #### O TOSIN, ADDONUAPLUS #### [facility] [address] [place] [address] Opiates [Presence] in Urine by Screen methodOrdered By: Emerald Martinez on 06-26-2023 Opiates Screen Ql (U) Negative Negative [facility] Phencyclidine Screen Ql (U)O rdered By: Emerald Martinez on 06-26-2023 Phencyclidine Ql (U) Negative Negative [facility] Comment on above: These are unconfirme d results and should not be used for legal purposes. Drug Cut-Off Concentration: AMPH 1000 ng/mL DORIS 200 ng/mL LEANNE 200 ng/mL COCM 300 ng/mL OP 300 ng/mL PCP 25 ng/mL Platelet mean volume Auto (B ld) [Entitic vol]Ordered By: Emerald Martinez on 06-26-2023 Platelet mean volume (Bld) [Entitic vol] 9.8 fL 6.3-10.7 [facility] Platelets Auto (Bld) [#/Vol] Ordered By: Emerald Martinez on 06-26-2023 Platelets (Bld) [#/Vol] 174 10*3/uL 150-450 [facility] Potassium [Moles/volume] in Serum or PlasmaOrdered By: Emerald Martinez on 06-26-2023 Potassium [Moles/Vol] 3.3 mmol/L 3.5-5.1 [facility] Protein Auto test strip (U) [Mass/Vol]Ordered By: Emerald Martinez on 06-26-2023 Protein (U) [Mass/Vol] Trace mg/dL Negative [facility] Protein [Mass/volume] in Ser um or PlasmaOrdered By: Emerald Martinez on 06-26-2023 Protein [Mass/Vol] 5.5 g/dL 6.4-8.9 [facility] RBC Auto (Bld) [#/Vol]Ordere d By: Emerald Martinez on 06-26-2023 RBC (Bld) [#/Vol] 3.89 10*6/uL 3.60-5.00 [facility] Serum or plasma albumin/glob ulin mass ratioOrdered By: Emerald Martinez on 06-26-2023 Albumin/Globulin [Mass ratio] 1.6 {ratio} [facility] Serum or plasma anion gap de terminationOrdered By: Emerald Martinez on 06-26-2023 Anion gap [Moles/Vol] 12.5 mmol/L 6.0-15.0 [facility] Sodium [Moles/volume] in Ser um or PlasmaOrdered By: Emerald Martinez on 06-26-2023 Sodium [Moles/Vol] 138 mmol/L 136-145 [facility] Specific gravity Auto test s trip (U) [Rel density]Ordered By: Emerald Martinez on 06-26-2023 Specific gravity (U) [Rel density] 1.009 1.001-1.030 [facility] Urea nitrogen [Mass/volume] in Serum or PlasmaOrdered By: Emerald Martinez on 06-26-2023 Urea nitrogen [Mass/Vol] 6 mg/dL 7-25 [facility] Urine bacteria detection by automated methodOrdered By: Emerald Martinez on 06-26-2023 Bacteria Auto Ql (U) Rare None Seen [facility] Urine clarity by refractomet ry automatedOrdered By: Emerald Martinez on 06-26-2023 Clarity Refractometry automated (U) Clear Clear [facility] Urine glucose measurement by automated test strip (mass/volume)Ordered By: Emerald Martinez on 06-26-2023 Glucose Auto test strip (U) [Mass/Vol] Normal mg/dL Normal [facility] Urine hemoglobin detection b y automated test stripOrdered By: Emerald Martinez on 06-26-2023 Hemoglobin Auto test strip Ql (U) 3+ Negative [facility] Urine leukocyte esterase det ection by automated test stripOrdered By: Emerald Martinez on 06-26-2023 Leukocyte esterase Auto test strip Ql (U) Negative Negative [facility] Urobilinogen Auto test strip (U) [Mass/Vol]Ordered By: Emerald Martinez on 06-26-2023 Urobilinogen (U) [Mass/Vol] Normal mg/dL Normal [facility] WBC Auto (Bld) [#/Vol]Ordere d By: Emerald Martinez on 06-26-2023 WBC (Bld) [#/Vol] 13.6 10*3/uL 3.8-11.6 [facility] Yeast detection in urine sed iment by light microscopyOrdered By: Emerald Martinez on 06-26-2023 Yeast LM Ql (Urine sed) Rare [HPF] None Seen F [facility] pH Auto test strip (U)Ordere d By: Emerald Martinez on 06-26-2023 pH (U) 6.5 [pH] 5.0-9.0 [facility] 1,25 Dihydroxy Vit D Calcitr olon 06-06-2023 1,25 Dihydroxy Vit D Calcitrol 123.0 pg/mL High 24.8-81.5 [facility] Comment on above: Result Comment: Perf ormed at: BN - [facility] [address] [id number] Car Filler: Dinora Alvarenga MD, Phone: [phone] PERFORMED BY: [address] [address] PATHOLOGIST MANUFACTURING SPECIALIST JERRY CASTRO M.D. Performed By: #### F FN #### [address] [address] [place] Alanine aminotransferase [En zymatic activity/volume] in Serum or PlasmaOrdered By: Latrice Sepulveda on 06-06-2023 ALT [Catalytic activity/Vol] 19 U/L 7-52 [facility] Albumin [Mass/volume] in Ser um or Plasma by Bromocresol green (BCG) dye binding methoOrdered By: Latrice Sepulveda on 06-06-2023 Albumin BCG dye [Mass/Vol] 3.5 g/dL 3.5-5.7 [facility] Alkaline phosphatase [Enzyma tic activity/volume] in Serum or PlasmaOrdered By: Latrice Sepulveda on 06-06-2023 ALP [Catalytic activity/Vol] 84 U/L 34-104 [facility] Aspartate aminotransferase [ Enzymatic activity/volume] in Serum or PlasmaOrdered By: Lartice Sepulveda on 06-06-2023 AST [Catalytic activity/Vol] 16 U/L 13-39 [facility] Bilirubin.total [Mass/volume ] in Serum or PlasmaOrdered By: Latrice Sepulveda on 06-06-2023 Bilirubin [Mass/Vol] 0.3 mg/dL 0.3-1.0 [facility] Calcium [Mass/volume] in Ser um or PlasmaOrdered By: Latrice Sepulveda on 06-06-2023 Calcium [Mass/Vol] 8.6 mg/dL 8.6-10.3 [facility] Carbon dioxide, total [Moles /volume] in Serum or PlasmaOrdered By: Latrice Sepulveda on 06-06-2023 CO2 [Moles/Vol] 24.8 mmol/L 21.0-31.0 [facility] Chloride [Moles/volume] in S gris or PlasmaOrdered By: Latrice Sepulveda on 06-06-2023 Chloride [Moles/Vol] 107 mmol/L 98-107 [facility] Comprehensive Metabolic Pane mauricio 06-06-2023 Albumin [Mass/Vol] 3.5 g/dL Normal 3.5-5.7 [facility] Comment on above: Performed By: #### F FN #### [facility] [address] [place] [id number] [facility] Albumin/Globulin [Mass ratio] 1.5 {ratio} Normal [facility] Comment on above: Performed By: #### F FN #### [facility] [address] ALP [Catalytic activity/Vol] 84 U/L Normal 34-104 [facility] Comment on above: Performed By: #### F FN #### [facility] [address] ALT [Catalytic activity/Vol] 19 U/L Normal 7-52 [facility] Comment on above: Performed By: #### F FN #### [address] Anion gap [Moles/Vol] 9.9 mmol/L Normal 6.0-15.0 [facility] Comment on above: Performed By: #### F FN #### [facility] [address] [place] [address] AST [Catalytic activity/Vol] 16 U/L Normal 13-39 [facility] Comment on above: Performed By: #### F FN #### [facility] [address] [place] [address] Bilirubin [Mass/Vol] 0.3 mg/dL Normal 0.3-1.0 [facility] Comment on above: Performed By: #### F FN #### [address] Calcium [Mass/Vol] 8.6 mg/dL Normal 8.6-10.3 [facility] Comment on above: Performed By: #### F FN #### [facility] [address] [place] [address] [place] Chloride [Moles/Vol] 107 mmol/L Normal 98-107 [facility] Comment on above: Performed By: #### F FN #### [address] CO2 [Moles/Vol] 24.8 mmol/L Normal 21.0-31.0 [facility] Comment on above: Performed By: #### F FN #### [address] [place] [address] [place] Creatinine [Mass/Vol] 0.45 mg/dL Low 0.60-1.20 [facility] Comment on above: Performed By: #### F FN #### [facility] [address] [place] [address] [place] GFR/1.73 sq M.predicted MDRD (S/P/Bld) [Vol rate/Area] mL/min/{1.73_m2} Normal [facility] Comment on above: Performed By: #### F FN #### [facility] [address] Globulin (S) [Mass/Vol] 2.4 g/dL Normal [facility] Comment on above: Performed By: #### F FN #### [address] Glucose [Mass/Vol] 89 mg/dL Normal 70-100 [facility] Comment on above: Result Comment: [facility] Glucose Reference Range is dependent on time and content of last meal. Glucose of more than 200 mg/dL in a nonstressed, ambulatory subject supports the diagnosis of Diabetes Mellitus. ADA recommended reference range Performed By: #### F FN #### [address] Potassium [Moles/Vol] 3.7 mmol/L Normal 3.5-5.1 [facility] Comment on above: Performed By: #### F FN #### [address] Protein [Mass/Vol] 5.9 g/dL Low 6.4-8.9 [facility] Comment on above: Performed By: #### F FN #### [address] Sodium [Moles/Vol] 138 mmol/L Normal 136-145 [facility] Comment on above: Performed By: #### F FN #### [address] Urea nitrogen [Mass/Vol] 5 mg/dL Low 7-25 [facility] Comment on above: Performed By: #### F FN #### [facility] [address] [place] [address] [place] Creatinine [Mass/volume] in Serum or PlasmaOrdered By: Latrice Sepulveda on 06-06-2023 Creatinine [Mass/Vol] 0.45 mg/dL 0.60-1.20 [facility] Globulin Calc (S) [Mass/Vol] Ordered By: Latrice Sepulveda on 06-06-2023 Globulin (S) [Mass/Vol] 2.4 g/dL [facility] Glucose [Mass/volume] in Ser um or PlasmaOrdered By: Latrice Sepulveda on 06-06-2023 Glucose [Mass/Vol] 89 mg/dL 70-100 [facility] Comment on above: ADA recommended refe rence rangeRandom Glucose Reference Range is dependent on time and content of last meal. Glucose of more than 200 mg/dL in a nonstressed, ambulatory subject supports the diagnosis of Diabetes Mellitus. No Panel InformationOrdered By: Latrice Sepulveda on 06-06-2023 Estimated GFR (CKD-EPI) > 60.0 mL/Min [facility] Creatinine Clearance (Chem N/A [facility] Parathyrin.intact [Mass/volu me] in Serum or PlasmaOrdered By: Latrice Sepulveda on 06-06-2023 Parathyrin.intact [Mass/Vol] 45.8 pg/mL [facility] Parathyroid Hormone Intacton 06-06-2023 Parathyroid Hormone Intact 45.8 pg/mL Normal [facility] Comment on above: Result Comment: PERF ORMED BY: [facility] [address] [place] [address] PATHOLOGIST MANUFACTURING SPECIALIST JERRY CASTRO M.D. Performed By: #### F FN #### [facility] [address] Potassium [Moles/volume] in Serum or PlasmaOrdered By: Latrice Sepulveda on 06-06-2023 Potassium [Moles/Vol] 3.7 mmol/L 3.5-5.1 [facility] Protein [Mass/volume] in Ser um or PlasmaOrdered By: Latrice Sepulveda on 06-06-2023 Protein [Mass/Vol] 5.9 g/dL 6.4-8.9 [facility] Serum or plasma albumin/glob ulin mass ratioOrdered By: Latrice Sepulveda on 06-06-2023 Albumin/Globulin [Mass ratio] 1.5 {ratio} [facility] Serum or plasma anion gap de terminationOrdered By: Latrice Sepulveda on 06-06-2023 Anion gap [Moles/Vol] 9.9 mmol/L 6.0-15.0 [facility] Serum or plasma calcitriol m easurement (mass/volume)Ordered By: Latrice Sepulveda on 06-06-2023 1,25-dihydroxyvitamin D3 [Mass/Vol] 123.0 pg/mL 24.8-81.5 [facility] Comment on above: Performed at: - [address] [id number] Director: Dinora Alvarenga MD, Phone: [phone] Sodium [Moles/volume] in Ser um or PlasmaOrdered By: Latrice Sepulveda on 06-06-2023 Sodium [Moles/Vol] 138 mmol/L 136-145 [facility] Urea nitrogen [Mass/volume] in Serum or PlasmaOrdered By: Latrice Sepulveda on 06-06-2023 Urea nitrogen [Mass/Vol] 5 mg/dL 7-25 [facility] Vitamin D 25 Hydroxy Totalon 06-06-2023 Vitamin D 25 Hydroxy Total 22.4 ng/mL Low 30-100 [facility] Comment on above: Result Comment: HARVINDER MIN D STATUS 25([place])VITAMIN D RANGE (ng/mL) Deficient <20 Insufficient 20 to <30 Sufficient 30 to 100 Reference: Helen MF,Lino NC, Gildardo MARTELL, et al. Evaluation,treatment, and prevention of vitamin D deficiency; an Endocrine Society clinical practice guideline. JCEM. 2010; 96(7):1911-30. PERFORMED BY: [address] [place] [address] PATHOLOGIST MANUFACTURING SPECIALIST JERRY CASTRO M.D. Performed By: #### F FN #### [facility] [address] [place] [address] [facility] Vitamin D+Metabolites [Mass/ volume] in Serum or PlasmaOrdered By: Latrice Sepulveda on 06-06-2023 Vitamin D+Metabolites [Mass/Vol] 22.4 ng/mL 30-100 [facility] Comment on above: VITAMIN D STATUS 25( [place])VITAMIN D RANGE (ng/mL) Deficient <20 Insufficient 20 to <30Sufficient 30 to 100Reference: Lino Pena, Gildardo MARTELL, et al. Evaluation,treatment, and prevention of vitamin D deficiency; an Endocrine Society clinical practice guideline. JCEM. 2010; 96(7):1911-30. Vitamin D 25 Hydroxy Totalon 05-06-2023 Vitamin D 25 Hydroxy Total 21.0 ng/mL Low 30-100 [facility] Comment on above: Order Comment: Comme nt patients 22 - 34 6/7 weeks prior to vaginal exam Result Comment: HARVINDER MIN D STATUS 25(OH)VITAMIN D RANGE (ng/mL) Deficient <20 Insufficient 20 to <30 Sufficient 30 to 100 Reference: Lino Pena, Gildardo MARTELL, et al. Evaluation,treatment, and prevention of vitamin D deficiency; an Endocrine Society clinical practice guideline. JCEM. 2010; 96(7):1911-30. PERFORMED BY: [place] [address] PATHOLOGIST MANUFACTURING SPECIALIST JERRY CASTRO M.D. Performed By: #### F FN #### [place] [id number] [facility] Vitamin D+Metabolites [Mass/ volume] in Serum or PlasmaOrdered By: Page Magaña on 05-06-2023 Vitamin D+Metabolites [Mass/Vol] 21.0 ng/mL 30-100 [facility] Comment on above: VITAMIN D STATUS 25( [place])VITAMIN D RANGE (ng/mL) Deficient <20 Insufficient 20 to <30Sufficient 30 to 100Reference: Lino Pena, Gildardo MARTELL, et al. Evaluation,treatment, and prevention of vitamin D deficiency; an Endocrine Society clinical practice guideline. JCEM. 2010; 96(8):1911-30. Alanine aminotransferase [En zymatic activity/volume] in Serum or PlasmaOrdered By: Sarmad Luque on 01-24-2023 ALT [Catalytic activity/Vol] 20 U/L 7-52 [facility] Albumin [Mass/volume] in Ser um or Plasma by Bromocresol green (BCG) dye binding methoOrdered By: Sarmad Luque on 01-24-2023 Albumin BCG dye [Mass/Vol] 4.7 g/dL 3.5-5.7 [facility] Alkaline phosphatase [Enzyma tic activity/volume] in Serum or PlasmaOrdered By: Sarmad Luque on 01-24-2023 ALP [Catalytic activity/Vol] 71 U/L 34-104 [facility] Aspartate aminotransferase [ Enzymatic activity/volume] in Serum or PlasmaOrdered By: Sarmad Luque on 01-24-2023 AST [Catalytic activity/Vol] 14 U/L 13-39 [facility] Automated erythrocytes count in urine sediment (number/area)Ordered By: Sarmad Luque on 01-24-2023 RBC Auto (Urine sed) [#/Area] 20-49 [HPF] 0-4 [facility] Automated leukocytes count i n urine sediment (number/area)Ordered By: Sarmad Luque on 01-24-2023 WBC Auto (Urine sed) [#/Area] 1-2 [HPF] 0-4 [facility] Basic Metabolic Panelon 01-07 Anion gap [Moles/Vol] 11.4 mmol/L Normal 6.0-15.0 [facility] Comment on above: Performed By: #### C BC, LIPASE, BMP, HEPATIC ####[facility] [id number] [place] [address] [facility] Calcium [Mass/Vol] 9.0 mg/dL Normal 8.6-10.3 [facility] Comment on above: Performed By: #### C BC, LIPASE, BMP, HEPATIC ####[facility] [id number] [place] [address] [facility] Chloride [Moles/Vol] 105 mmol/L Normal 98-107 [facility] Comment on above: Performed By: #### C BC, LIPASE, BMP, HEPATIC ####[place] [id number] [address] CO2 [Moles/Vol] 25.0 mmol/L Normal 21.0-31.0 [facility] Comment on above: Performed By: #### C BC, LIPASE, BMP, HEPATIC ####[address] Creatinine [Mass/Vol] 0.67 mg/dL Normal 0.60-1.20 [facility] Comment on above: Performed By: #### C BC, LIPASE, BMP, HEPATIC ####[address] Creatinine Clr Calc Pharmacy 103.40 [facility] Comment on above: Performed By: #### C BC, LIPASE, BMP, HEPATIC ####[address] GFR/1.73 sq M.predicted MDRD (S/P/Bld) [Vol rate/Area] mL/min/{1.73_m2} [facility] Comment on above: Performed By: #### C BC, LIPASE, BMP, HEPATIC ####[address] Glucose [Mass/Vol] 89 mg/dL Normal 70-100 [facility] Comment on above: Result Comment: [place] Glucose Reference Range is dependent on time and content of last meal. Glucose of more than 200 mg/dL in a nonstressed, ambulatory subject supports the diagnosis of Diabetes Mellitus. ADA recommended reference range Performed By: #### C BC, LIPASE, BMP, HEPATIC ####[place] [id number] [facility] Potassium [Moles/Vol] 3.4 mmol/L Low 3.5-5.1 [facility] Comment on above: Performed By: #### C BC, LIPASE, BMP, HEPATIC ####[address] Sodium [Moles/Vol] 138 mmol/L Normal 136-145 [facility] Comment on above: Performed By: #### C BC, LIPASE, BMP, HEPATIC ####[facility] [id number] Urea nitrogen [Mass/Vol] 6 mg/dL Low 7-25 [facility] Comment on above: Performed By: #### C BC, LIPASE, BMP, HEPATIC ####[facility] [id number] [place] [id number] [facility] Basophils Auto (Bld) [#/Vol] Ordered By: Sarmad Luque on 01-24-2023 Basophils (Bld) [#/Vol] 0.1 10*3/uL 0.0-0.2 [facility] Basophils/100 WBC Auto (Bld) Ordered By: Sarmad Luque on 01-24-2023 Basophils/100 WBC (Bld) 0.8 % . [facility] Bilirubin Test strip Ql (U)O rdered By: Sarmad Luque on 01-24-2023 Bilirubin Ql (U) Negative Negative [facility] Bilirubin.direct [Mass/volum e] in Serum or PlasmaOrdered By: Sarmad Luque on 01-24-2023 Bilirubin.direct [Mass/Vol] 0.20 mg/dL 0.03-0.18 [facility] Bilirubin.total [Mass/volume ] in Serum or PlasmaOrdered By: Sarmad Luque on 01-24-2023 Bilirubin [Mass/Vol] 0.9 mg/dL 0.3-1.0 [facility] Calcium [Mass/volume] in Ser um or PlasmaOrdered By: Sarmad Luque on 01-24-2023 Calcium [Mass/Vol] 9.0 mg/dL 8.6-10.3 [facility] Carbon dioxide, total [Moles /volume] in Serum or PlasmaOrdered By: Sarmad Luque on 01-24-2023 CO2 [Moles/Vol] 25.0 mmol/L 21.0-31.0 [facility] Chloride [Moles/volume] in S gris or PlasmaOrdered By: Sarmad Luque on 01-24-2023 Chloride [Moles/Vol] 105 mmol/L 98-107 [facility] Choriogonadotropin.beta subu nit [Units/volume] in Serum or PlasmaOrdered By: Sarmad Luque on 01-24-2023 HCG.beta subunit Qn 120.64 m[IU]/mL [facility] Comment on above: Approximate Approxim ate hCG Gestational Age Range (mIU/ml) (weeks)0.2-1 5-50 1-2 50-500 2-3 100-5,000 3-4 500-10,000 4-5 1,000-50,000 5-6 10,000-100,000 6-8 15,000-200,000 8-12 10,000-100,000 Color Auto (U)Ordered By: Eric Luque on 01-24-2023 Color (U) Yellow Yellow [facility] Complete Blood Count Auto Di ffon 01-24-2023 Basophils (Bld) [#/Vol] 0.1 10*3/uL Normal 0.0-0.2 [facility] Comment on above: Result Comment: PERF ORMED BY: [address] [place] [address] PATHOLOGIST MANUFACTURING SPECIALIST JERRY CASTRO M.D. Performed By: #### F FN #### [address] Basophils/100 WBC (Bld) 0.8 % Normal . [facility] Comment on above: Performed By: #### F FN #### [facility] [address] [place] [address] [place] Eosinophils (Bld) [#/Vol] 0.1 10*3/uL Normal 0.0-0.45 [facility] Comment on above: Performed By: #### F FN #### [facility] [address] [place] [address] [place] Eosinophils/100 WBC (Bld) 1.3 % Normal . [facility] Comment on above: Performed By: #### F FN #### [facility] [address] Erythrocyte distribution width (RBC) [Ratio] 13.5 % Normal 11.9-15.3 [facility] Comment on above: Performed By: #### F FN #### [facility] [address] Hematocrit (Bld) [Volume fraction] 41.4 % Normal 34.0-46.4 [facility] Comment on above: Performed By: #### F FN #### [facility] [address] Hemoglobin (Bld) [Mass/Vol] 14.1 g/dL Normal 11.8-15.4 [facility] Comment on above: Performed By: #### F FN #### [facility] [address] Lymphocytes (Bld) [#/Vol] 2.4 10*3/uL Normal 1.00-4.8 [facility] Comment on above: Performed By: #### F FN #### [address] Lymphocytes/100 WBC (Bld) 31.9 % Normal . [facility] Comment on above: Performed By: #### F FN #### [address] MCH (RBC) [Entitic mass] 28.8 pg Normal 24.7-34.3 [facility] Comment on above: Performed By: #### F FN #### [address] MCV (RBC) [Entitic vol] 84.3 fL Normal 80-100 [facility] Comment on above: Performed By: #### F FN #### [address] Mean Corpuscular HGB Conc 34.1 g/dL Normal 32.0-35.0 [facility] Comment on above: Performed By: #### F FN #### [address] Monocytes (Bld) [#/Vol] 0.5 10*3/uL Normal 0.0-0.8 [facility] Comment on above: Performed By: #### F FN #### [facility] [address] [place] [address] [place] Monocytes/100 WBC (Bld) 17.21 % Normal 0.00-20.00 [facility] Comment on above: Performed By: #### F FN #### [facility] [facility] [address] Monocytes/100 WBC (Bld) 7.3 % Normal . [facility] Comment on above: Performed By: #### F FN #### [address] Neutrophils (Bld) [#/Vol] 4.3 10*3/uL Normal 1.8-7.7 [facility] Comment on above: Performed By: #### F FN #### [address] Neutrophils/100 WBC (Bld) 58.7 % Normal . [facility] Comment on above: Performed By: #### F FN #### [address] NRBC% 0.1 /100{WBC} Normal 0-0.5 [facility] Comment on above: Performed By: #### F FN #### [address] Platelet mean volume (Bld) [Entitic vol] 9.2 fL Normal 6.3-10.7 [facility] Comment on above: Performed By: #### F FN #### [place] [address] [place] Platelets (Bld) [#/Vol] 222 10*3/uL Normal 150-450 [facility] Comment on above: Performed By: #### F FN #### [place] [address] [place] RBC (Bld) [#/Vol] 4.91 10*6/uL Normal 3.60-5.00 [facility] Comment on above: Performed By: #### F FN #### [place] [address] [place] WBC (Bld) [#/Vol] 7.4 10*3/uL Normal 3.8-11.6 [facility] Comment on above: Performed By: #### F FN #### [facility] [address] Creatinine [Mass/volume] in Serum or PlasmaOrdered By: Sarmad Luque on 01-24-2023 Creatinine [Mass/Vol] 0.67 mg/dL 0.60-1.20 [facility] Dipstick and Microscopicon 0 01-24-2023 Appearance (U) Cloudy Critically abnormal Clear [facility] Comment on above: Order Comment: Name Collection Type:: Clean-Voided Midstream Performed By: #### A [facility]APL[facility], [facility] ####[place] [id number] [place] [id number] [facility] Bacteria,Urine None Seen Normal None Seen [facility] Comment on above: Order Comment: Name Collection Type:: Clean-Voided Midstream Performed By: #### [facility], [facility] ####[place] [address] [place] [id number] [facility] Bilirubin,Urine Negative Normal Negative [facility] Comment on above: Order Comment: Name Collection Type:: Clean-Voided Midstream Performed By: #### A DDONUAPLUS, CG ####[place] [address] [place] [id number] [facility] Color (U) Yellow Normal Yellow [facility] Comment on above: Order Comment: Name Collection Type:: Clean-Voided Midstream Performed By: #### A DDONUAPLUS, CG ####[address] [address] [facility] Glucose Ql (U) Normal Normal Normal [facility] Comment on above: Order Comment: Name Collection Type:: Clean-Voided Midstream Performed By: #### A DDONUAPLUS, CG ####[place] [address] [place] [address] [facility] Hyaline Casts,Urine 0-8 Normal 0-8 [facility] Comment on above: Order Comment: Name Collection Type:: Clean-Voided Midstream Performed By: #### A DDONUAPLUS, UHCG ####[place] [id number] [facility] Ketones Ql (U) Trace High Negative [facility] Comment on above: Order Comment: Name Collection Type:: Clean-Voided Midstream Performed By: #### A DDONUAPLUS, UHCG ####[place] [id number] [facility] Leukocyte esterase Test strip Ql (U) 1+ High Negative [facility] Comment on above: Order Comment: Name Collection Type:: Clean-Voided Midstream Performed By: #### A DDONUAPLUS, UHCG ####[address] Nitrite,Urine Negative Normal Negative [facility] Comment on above: Order Comment: Name Collection Type:: Clean-Voided Midstream Performed By: #### A DDONUAPLUS, UHCG ####[place] [phone] [facility] Occult Blood,Urine 2+ High Negative [facility] Comment on above: Order Comment: Name Collection Type:: Clean-Voided Midstream Performed By: #### A DDONUAPLUS, UHCG ####[place] [phone] [facility] pH (U) 6.0 [pH] Normal 5.0-9.0 [facility] Comment on above: Order Comment: Name Collection Type:: Clean-Voided Midstream Performed By: #### A DDONUAPLUS, UHCG ####[address] [address] [facility] Protein,Urine Trace High Negative [facility] Comment on above: Order Comment: Name Collection Type:: Clean-Voided Midstream Performed By: #### A DDONUAPLUS, UHCG ####[place] [id number] [facility] RBC,Urine 20-49 High 0-4 [facility] Comment on above: Order Comment: Name Collection Type:: Clean-Voided Midstream Performed By: #### A DD[facility]APLUS, [facility] ####[address] Specificy [place],Urine 1.022 Normal 1.001-1.030 [facility] Comment on above: Order Comment: Name Collection Type:: Clean-Voided Midstream Performed By: #### A DDONUAPLUS [facility] ####[place] [id number] [facility] Squamous Epithelial Cell,Urine 5-9 High 0-2 [facility] Comment on above: Order Comment: Name Collection Type:: Clean-Voided Midstream Performed By: #### A DDONUAPLUS [facility] ####[address] Urobilinogen,Urine Normal Normal Normal [facility] Comment on above: Order Comment: Name Collection Type:: Clean-Voided Midstream Performed By: #### A DDONLINNEA [facility] ####[place] [id number] [facility] WBC,Urine 1-2 Normal 0-4 [facility] Comment on above: Order Comment: Name Collection Type:: Clean-Voided Midstream Performed By: #### A DDONUAPLUS, [facility] ####[place] [id number] [facility] Eosinophils Auto (Bld) [#/Vo l]Ordered By: Sarmad Luque on 01-24-2023 Eosinophils (Bld) [#/Vol] 0.1 10*3/uL 0.0-0.45 [facility] Eosinophils/100 WBC Auto (Bl d)Ordered By: Sarmad Luque on 01-24-2023 Eosinophils/100 WBC (Bld) 1.3 % . [facility] Erythrocyte distribution wid th Auto (RBC) [Ratio]Ordered By: Sarmad Luque on 01-24-2023 Erythrocyte distribution width (RBC) [Ratio] 13.5 % 11.9-15.3 [facility] Globulin Calc (S) [Mass/Vol] Ordered By: Sarmad Luque on 01-24-2023 Globulin (S) [Mass/Vol] 2.7 g/dL [facility] Glucose [Mass/volume] in Ser um or PlasmaOrdered By: Sarmad Luque on 01-24-2023 Glucose [Mass/Vol] 89 mg/dL 70-100 [facility] Comment on above: ADA recommended refe rence rangeRandom Glucose Reference Range is dependent on time and content of last meal. Glucose of more than 200 mg/dL in a nonstressed, ambulatory subject supports the diagnosis of Diabetes Mellitus. HCG ( test) IA.rapi d Ql (U)Ordered By: Sarmad Luque on 01-24-2023 HCG ( test) Ql (U) Positive [facility] HCG,Quantitativeon 3 HCG,Quantitative 120.64 m[iU]/mL Normal [facility] Comment on above: Result Comment: Appr oximate Approximate hCG Gestational Age Range (mIU/ml) (weeks) 0.2-1 5-50 1-2 50-500 2-3 100-5,000 3-4 500-10,000 4-5 1,000-50,000 5-6 10,000-100,000 6-8 15,000-200,000 8-12 10,000-100,000 PERFORMED BY: [facility] [address] [place] [address] PATHOLOGIST MANUFACTURING SPECIALIST JERRY CASTRO M.D. Performed By: #### H CGQNT ####[place] [id number] [facility] HCG,Urineon 01-24-2023 Beta HCG ( test) Ql (U) Positive [facility] Comment on above: Order Comment: Name Collection Type:: Clean-Voided Midstream Result Comment: PERF ORMED BY: [facility] [address] [place] [address] PATHOLOGIST MANUFACTURING SPECIALIST JERRY CASTRO M.D. Performed By: #### A DDONUAPLUS, CG ####[place] [phone] [facility] Hematocrit Auto (Bld) [Volum e fraction]Ordered By: Sarmad Luque on 01-24-2023 Hematocrit (Bld) [Volume fraction] 41.4 % 34.0-46.4 [facility] Hemoglobin [Mass/volume] in BloodOrdered By: Sarmad Luque on 01-24-2023 Hemoglobin (Bld) [Mass/Vol] 14.1 g/dL 11.8-15.4 [facility] Hepatic Panelon 01-24-2023 Albumin [Mass/Vol] 4.7 g/dL Normal 3.5-5.7 [facility] Comment on above: Performed By: #### F FN #### [facility] [address] Albumin/Globulin [Mass ratio] 1.7 {ratio} Normal [facility] Comment on above: Performed By: #### F FN #### [address] ALP [Catalytic activity/Vol] 71 U/L Normal 34-104 [facility] Comment on above: Performed By: #### F FN #### [facility] [address] ALT [Catalytic activity/Vol] 20 U/L Normal 7-52 [facility] Comment on above: Performed By: #### F FN #### [address] AST [Catalytic activity/Vol] 14 U/L Normal 13-39 [facility] Comment on above: Performed By: #### F FN #### [address] Bilirubin [Mass/Vol] 0.9 mg/dL Normal 0.3-1.0 [facility] Comment on above: Performed By: #### F FN #### [place] [address] [place] Bilirubin,Indirect 0.7 mg/dL Normal [facility] Comment on above: Performed By: #### F FN #### [place] [address] [place] Bilirubin.indirect [Mass/Vol] 0.20 mg/dL High 0.03-0.18 [facility] Comment on above: Performed By: #### F FN #### [facility] [address] Globulin (S) [Mass/Vol] 2.7 g/dL Normal F [facility] Comment on above: Performed By: #### F FN #### [facility] [address] Protein [Mass/Vol] 7.4 g/dL Normal 6.4-8.9 [facility] Comment on above: Performed By: #### F FN #### [facility] [address] Ketones Auto test strip (U) [Mass/Vol]Ordered By: Sarmad Luque on 01-24-2023 Ketones (U) [Mass/Vol] Trace Negative [facility] - UrinalysisOrder ed By: Sarmad Luque on 01-24-2023 Hyaline casts LM Ql (Urine sed) 0-8 [LPF] 0-8 [facility] Leukocytes [#/volume] correc mague for nucleated erythrocytes in Blood by Automated counOrdered By: Sarmad Luque on 01-24-2023 WBC corrected for nucl RBC Auto (Bld) [#/Vol] 7.4 10*3/uL 3.8-11.6 [facility] Lipaseon 01-24-2023 Lipase [Catalytic activity/Vol] 47.0 U/L Normal 11.0-82.0 [facility] Comment on above: Result Comment: PERF ORMED BY: [facility] [address] [place] [address] PATHOLOGIST MANUFACTURING SPECIALIST JERRY CASTRO M.D. Performed By: #### C BC, LIPASE, BMP, HEPATIC ####[facility] [id number] Lipase [Enzymatic activity/v olume] in Serum or PlasmaOrdered By: Sarmad Luque on 01-24-2023 Lipase [Catalytic activity/Vol] 47.0 U/L 11.0-82.0 [facility] Lymphocytes Auto (Bld) [#/Vo l]Ordered By: Sarmad Luque on 01-24-2023 Lymphocytes (Bld) [#/Vol] 2.4 10*3/uL 1.00-4.8 [facility] Lymphocytes/100 WBC Auto (Bl d)Ordered By: Sarmad Luque on 01-24-2023 Lymphocytes/100 WBC (Bld) 31.9 % . [facility] MCH Auto (RBC) [Entitic mass ]Ordered By: Sarmad Luque on 01-24-2023 MCH (RBC) [Entitic mass] 28.8 pg 24.7-34.3 [facility] MCHC Auto (RBC) [Mass/Vol]Or dered By: Sarmad Luque on 01-24-2023 MCHC (RBC) [Mass/Vol] 34.1 g/dL 32.0-35.0 [facility]ir [facility] MCV Auto (RBC) [Entitic vol] Ordered By: Sarmad Luque on 01-24-2023 MCV (RBC) [Entitic vol] 84.3 fL 80-100 [facility] Monocyte distribution width [Entitic volume] in Blood by AutomatedOrdered By: Sarmad Luque on 01-24-2023 Monocyte distribution width Auto (Bld) [Entitic vol] 17.21 % 0.00-20.00 [facility] Monocytes Auto (Bld) [#/Vol] Ordered By: Sarmad Luque on 01-24-2023 Monocytes (Bld) [#/Vol] 0.5 10*3/uL 0.0-0.8 [facility] Monocytes/100 WBC Auto (Bld) Ordered By: Sarmad Luque on 01-24-2023 Monocytes/100 WBC (Bld) 7.3 % . [facility] Neutrophils Auto (Bld) [#/Vo l]Ordered By: Sarmad Luque on 01-24-2023 Neutrophils (Bld) [#/Vol] 4.3 10*3/uL 1.8-7.7 [facility] Neutrophils/100 WBC Auto (Bl d)Ordered By: Sarmad Luque on 01-24-2023 Neutrophils/100 WBC (Bld) 58.7 % . [facility] Nitrite Test strip Ql (U)Ord ered By: Sarmad Luque on 01-24-2023 Nitrite Ql (U) Negative Negative [facility] No Panel InformationOrdered By: Sarmad Luque on 01-24-2023 Estimated GFR (CKD-EPI) > 60.0 mL/Min [facility] Creatinine Clearance (Chem 103.40 [facility] Nucleated erythrocytes [Pres ence] in Blood by Automated countOrdered By: Sarmad Luque on 01-24-2023 Nucleated RBC Auto Ql (Bld) 0.1 /100{WBC} 0-0.5 [facility] Platelet mean volume Auto (B ld) [Entitic vol]Ordered By: Sarmad Luque on 01-24-2023 Platelet mean volume (Bld) [Entitic vol] 9.2 fL 6.3-10.7 [facility] Platelets Auto (Bld) [#/Vol] Ordered By: Sarmad Luque on 01-24-2023 Platelets (Bld) [#/Vol] 222 10*3/uL 150-450 [facility] Potassium [Moles/volume] in Serum or PlasmaOrdered By: Sarmad Luque on 01-24-2023 Potassium [Moles/Vol] 3.4 mmol/L 3.5-5.1 [facility] Protein Auto test strip (U) [Mass/Vol]Ordered By: Sarmad Luque on 01-24-2023 Protein (U) [Mass/Vol] Trace mg/dL Negative [facility] Protein [Mass/volume] in Ser um or PlasmaOrdered By: Sarmad Luque on 01-24-2023 Protein [Mass/Vol] 7.4 g/dL 6.4-8.9 [facility] RBC Auto (Bld) [#/Vol]Ordere d By: Sarmad Luque on 01-24-2023 RBC (Bld) [#/Vol] 4.91 10*6/uL 3.60-5.00 [facility] Serum or plasma albumin/glob ulin mass ratioOrdered By: Sarmad Luque on 01-24-2023 Albumin/Globulin [Mass ratio] 1.7 {ratio} [facility] Serum or plasma anion gap de terminationOrdered By: Sarmad Luque on 01-24-2023 Anion gap [Moles/Vol] 11.4 mmol/L 6.0-15.0 [facility] Serum or plasma non-glucuron idated bilirubin measurement (mass/volume)Ordered By: Sarmad Luque on 01-24-2023 Bilirubin.indirect [Mass/Vol] 0.7 mg/dL [facility] Sodium [Moles/volume] in Ser um or PlasmaOrdered By: Sarmad Luque on 01-24-2023 Sodium [Moles/Vol] 138 mmol/L 136-145 [facility] Specific gravity Auto test s trip (U) [Rel density]Ordered By: Sarmad Luque on 01-24-2023 Specific gravity (U) [Rel density] 1.022 1.001-1.030 [facility] Squamous epithelial cells de tection in urine sediment by light microscopyOrdered By: Sarmad Luque on 01-24-2023 Epithelial cells.squamous LM Ql (Urine sed) 5-9 [HPF] 0-2 [facility] US OB transvaginalon 023 US OB transvaginal [facility] [place] [address] Ultrasound Report Signed Patient: Elyssa Smith MR#: [id number] : 1990 Acct:[id number] Age/Sex: 32 / F ADM Date: 01/24/23 Loc: ER Room: Type: [facility] ER Attending Dr: Ordering Provider: Sarmad Luque DO Date of Service: 01/24/23 US/US OB <= 14 weeks fetus: Abdominal Pain ([id number]) US/US OB transvaginal: PAIN Copies to: Sarmad [...] Carrillo Ziegler M.D.01/24/2023 2:06 PM Dictation Location: [place] [address] Tech: Ashely Doll Transcribed By: SILVINA 01/24/23 1406 Dictated By: Carrillo Ziegler II, MD 01/24/23 1401 Signed By: 01/24/23 1406 Normal [facility] US renal BIon 01-24-2023 US renal BI [facility] Main [place] [address] [place] [address] Ultrasound Report Signed Patient: Elyssa Smith MR#: [id number] : 1990 Acct:[id number] Age/Sex: 32 / F ADM Date: 01/24/23 Loc: ER Room: Type: [facility] ER Attending Dr: Ordering Provider: [...] Carrillo Ziegler M.D.01/24/2023 2:12 PM Dictation Location: [place] [address] Tech: [facility] Transcribed By: SILVINA 01/24/23 1412 Dictated By: Carrillo Ziegler II, MD 01/24/23 1410 Signed By: 01/24/23 1412 Normal [facility] Urea nitrogen [Mass/volume] in Serum or PlasmaOrdered By: Sarmad Luque on 01-24-2023 Urea nitrogen [Mass/Vol] 6 mg/dL 725 [facility] Urine bacteria detection by automated methodOrdered By: Sarmad Luque on 01-24-2023 Bacteria Auto Ql (U) None seen None Seen [facility] Urine clarity by refractomet ry automatedOrdered By: Sarmad Luque on 01-24-2023 Clarity Refractometry automated (U) Cloudy Clear [facility] Urine glucose measurement by automated test strip (mass/volume)Ordered By: Sarmad Luque on 01-24-2023 Glucose Auto test strip (U) [Mass/Vol] Normal mg/dL Normal [facility] Urine hemoglobin detection b y automated test stripOrdered By: Sarmad Luque on 01-24-2023 Hemoglobin Auto test strip Ql (U) 2+ Negative [facility] Urine leukocyte esterase det ection by automated test stripOrdered By: Sarmad Luque on 01-24-2023 Leukocyte esterase Auto test strip Ql (U) 1+ Negative [facility] Urobilinogen Auto test strip (U) [Mass/Vol]Ordered By: Sarmad Luque on 01-24-2023 Urobilinogen (U) [Mass/Vol] Normal mg/dL Normal [facility] WBC Auto (Bld) [#/Vol]Ordere d By: Sarmad Luque on 01-24-2023 WBC (Bld) [#/Vol] 7.4 10*3/uL 3.8-11.6 [facility] pH Auto test strip (U)Ordere d By: Sarmad Luque on 01-24-2023 pH (U) 6.0 [pH] 5.0-9.0 [facility] ALFRED with Reflexon 10-27-2022 ALFRED with Reflex Negative Normal Negative [facility] Comment on above: Result Comment: Perf ormed at: - [facility] [address] [id number] Car Filler: Ismael Suh PhD, Phone: [phone] PERFORMED BY: [place] [address] PATHOLOGIST MANUFACTURING SPECIALIST JERRY CASTRO M.D. Performed By: #### F FN #### [address] Alanine aminotransferase [En zymatic activity/volume] in Serum or PlasmaOrdered By: Page Magaña on 10-27-2022 ALT [Catalytic activity/Vol] 30 U/L 7-52 [facility] Albumin [Mass/volume] in Ser um or Plasma by Bromocresol green (BCG) dye binding methoOrdered By: Page Magaña on 10-27-2022 Albumin BCG dye [Mass/Vol] 4.2 g/dL 3.5-5.7 [facility] Alkaline phosphatase [Enzyma tic activity/volume] in Serum or PlasmaOrdered By: Page Magaña on 10-27-2022 ALP [Catalytic activity/Vol] 86 U/L 34-104 [facility] Aspartate aminotransferase [ Enzymatic activity/volume] in Serum or PlasmaOrdered By: Page Magaañ on 10-27-2022 AST [Catalytic activity/Vol] 17 U/L 13-39 [facility] Basophils Auto (Bld) [#/Vol] Ordered By: Page Magaña on 10-27-2022 Basophils (Bld) [#/Vol] 0.1 10*3/uL 0.0-0.2 [facility] Basophils/100 WBC Auto (Bld) Ordered By: Page Magaña on 10-27-2022 Basophils/100 WBC (Bld) 0.6 % . [facility] Bilirubin.total [Mass/volume ] in Serum or PlasmaOrdered By: Page Magaña on 10-27-2022 Bilirubin [Mass/Vol] 0.6 mg/dL 0.3-1.0 [facility] Calcium [Mass/volume] in Ser um or PlasmaOrdered By: Page Magaña on 10-27-2022 Calcium [Mass/Vol] 9.0 mg/dL 8.6-10.3 [facility] Carbon dioxide, total [Moles /volume] in Serum or PlasmaOrdered By: Page Magaña on 10-27-2022 CO2 [Moles/Vol] 24.7 mmol/L 21.0-31.0 [facility] Chloride [Moles/volume] in S gris or PlasmaOrdered By: Page Magaña on 10-27-2022 Chloride [Moles/Vol] 107 mmol/L 98-107 [facility] Cholesterol [Mass/volume] in Serum or PlasmaOrdered By: Page Magaña on 10-27-2022 Cholesterol [Mass/Vol] 209 mg/dL 140-200 [facility] Comment on above: Chol less than 200 m g/dl low riskChol 201-239 mg/dl borderline riskChol 240 mg/dl and greater high risk Cholesterol in LDL Calc [Mas s/Vol]Ordered By: Page Magaña on 10-27-2022 Cholesterol in LDL [Mass/Vol] 155 mg/dL 0-100 [facility] Comment on above: LDL ATP III CLASSIFI CATIONLDL less than 100 mg/dL OptimalLDL 100-129 mg/dL Near or above optimalLDL 130-159 mg/dL Borderline highLDL 160-189 mg/dL HighLDL greater than 189 mg/dL Very high Cholesterol in VLDL Calc [Ma ss/Vol]Ordered By: Page Magaña on 10-27-2022 Cholesterol in VLDL [Mass/Vol] 11 mg/dL [facility] Complete Blood Count Auto Di ffon 10-27-2022 Basophils (Bld) [#/Vol] 0.1 10*3/uL Normal 0.0-0.2 [facility] Comment on above: Result Comment: PERF ORMED BY: [place] [address] PATHOLOGIST MANUFACTURING SPECIALIST JERRY CASTRO M.D. Performed By: #### L IPID, CMP, CBC, TSH3 wRFLX, [id number] #### [address] #### ALFRED CHOICE, RA #### [facility] , Basophils/100 WBC (Bld) 0.6 % Normal . [facility] Comment on above: Performed By: #### L IPID, CMP, CBC, TSH3 wRFLX, [id number] #### [address] #### ALFRED CHOICE, RA #### [facility] , Eosinophils (Bld) [#/Vol] 0.1 10*3/uL Normal 0.0-0.45 [facility] Comment on above: Performed By: #### L IPID, CMP, CBC, TSH3 wRFLX, [id number] #### [facility] [address] [place] [address] [place] #### ALFRED CHOICE, RA #### [facility] , Eosinophils/100 WBC (Bld) 1.6 % Normal . [facility] Comment on above: Performed By: #### L IPID, CMP, CBC, TSH3 wRFLX, [id number] #### [facility] [address] [place] [address] [place] #### ALFRED CHOICE, RA #### [facility] , Erythrocyte distribution width (RBC) [Ratio] 14.4 % Normal 11.9-15.3 [facility] Comment on above: Performed By: #### L IPID, CMP, CBC, TSH3 wRFLX, [id number] #### [place] [address] [place] #### ALFRED CHOICE, RA #### [facility] , Hematocrit (Bld) [Volume fraction] 40.5 % Normal 34.0-46.4 [facility] Comment on above: Performed By: #### L IPID, CMP, CBC, TSH3 wRFLX, [id number] #### [place] [address] [place] #### ALFRED CHOICE, RA #### [facility] , Hemoglobin (Bld) [Mass/Vol] 13.5 g/dL Normal 11.8-15.4 [facility] Comment on above: Performed By: #### L IPID, CMP, CBC, TSH3 wRFLX, [id number] #### [place] [address] [place] #### ALFRED CHOICE, RA #### [facility] , Lymphocytes (Bld) [#/Vol] 2.8 10*3/uL Normal 1.00-4.8 [facility] Comment on above: Performed By: #### L IPID, CMP, CBC, TSH3 wRFLX, [id number] #### [place] [address] [place] #### ALFRED CHOICE, RA #### [facility] , Lymphocytes/100 WBC (Bld) 30.3 % Normal . [facility] Comment on above: Performed By: #### L IPID, CMP, CBC, TSH3 wRFLX, [id number] #### [facility] [address] [place] [address] [place] #### ALFRED CHOICE, RA #### [facility] , MCH (RBC) [Entitic mass] 28.1 pg Normal 24.7-34.3 [facility] Comment on above: Performed By: #### L IPID, CMP, CBC, TSH3 wRFLX, [id number] #### [facility] [address] [place] [address] [place] #### ALFRED CHOICE, RA #### [facility] , MCV (RBC) [Entitic vol] 84.6 fL Normal 80-100 [facility] Comment on above: Performed By: #### L IPID, CMP, CBC, TSH3 wRFLX, [id number] #### [facility] [address] [place] [address] [place] #### ALFRED CHOICE, RA #### [facility] , Mean Corpuscular HGB Conc 33.3 g/dL Normal 32.0-35.0 [facility] Comment on above: Performed By: #### L IPID, CMP, CBC, TSH3 wRFLX, [id number] #### [place] [address] [place] #### ALFRED CHOICE, RA #### [facility] , Monocytes (Bld) [#/Vol] 0.6 10*3/uL Normal 0.0-0.8 [facility] Comment on above: Performed By: #### L IPID, CMP, CBC, TSH3 wRFLX, [id number] #### [place] [address] [place] #### ALFRED CHOICE, RA #### [facility] , Monocytes/100 WBC (Bld) 6.7 % Normal . [facility] Comment on above: Performed By: #### L IPID, CMP, CBC, TSH3 wRFLX, [id number] #### [facility] [address] [place] [address] [place] #### ALFRED CHOICE, RA #### [facility] , Neutrophils (Bld) [#/Vol] 5.5 10*3/uL Normal 1.8-7.7 [facility] Comment on above: Performed By: #### L IPID, CMP, CBC, TSH3 wRFLX, [id number] #### [place] [address] [place] #### ALFRED CHOICE, RA #### [facility] , Neutrophils/100 WBC (Bld) 60.8 % Normal . [facility] Comment on above: Performed By: #### L IPID, CMP, CBC, TSH3 wRFLX, [id number] #### [facility] [address] [place] [address] [place] #### ALFRED CHOICE, RA #### [facility] , NRBC% 0.3 /100{WBC} Normal 0-0.5 [facility] Comment on above: Performed By: #### L IPID, CMP, CBC, TSH3 wRFLX, [id number] #### [address] #### ALFRED CHOICE, RA #### [facility] , Platelet mean volume (Bld) [Entitic vol] 8.9 fL Normal 6.3-10.7 [facility] Comment on above: Performed By: #### L IPID, CMP, CBC, TSH3 wRFLX, [id number] #### [place] [address] [place] #### ALFRED CHOICE, RA #### [facility] , Platelets (Bld) [#/Vol] 246 10*3/uL Normal 150-450 [facility] Comment on above: Performed By: #### L IPID, CMP, CBC, TSH3 wRFLX, [id number] #### [place] [address] [place] #### ALFRED CHOICE, RA #### [facility] , RBC (Bld) [#/Vol] 4.79 10*6/uL Normal 3.60-5.00 [facility] Comment on above: Performed By: #### L IPID, CMP, CBC, TSH3 wRFLX, [id number] #### [facility] [address] [place] [address] [place] #### ALFRED CHOICE, RA #### [facility] , WBC (Bld) [#/Vol] 9.1 10*3/uL Normal 3.8-11.6 [facility] Comment on above: Performed By: #### L IPID, CMP, CBC, TSH3 wRFLX, [id number] #### [facility] [address] [place] [address] [place] #### ALFRED CHOICE, RA #### [facility] , Comprehensive Metabolic Pane mauricio 10-27-2022 Albumin [Mass/Vol] 4.2 g/dL Normal 3.5-5.7 [facility] Comment on above: Order Comment: PT IS FASTING Performed By: #### L IPID, CMP, CBC, TSH3 wRFLX, [id number] #### [facility] [address] [place] [address] [place] #### ALFRED CHOICE, RA #### [facility] , Albumin/Globulin [Mass ratio] 1.8 {ratio} Normal [facility] Comment on above: Order Comment: PT IS FASTING Performed By: #### L IPID, CMP, CBC, TSH3 wRFLX, [id number] #### [facility] [address] [place] [address] [place] #### ALFRED CHOICE, RA #### [facility] , ALP [Catalytic activity/Vol] 86 U/L Normal 34-104 [facility] Comment on above: Order Comment: PT IS FASTING Performed By: #### L IPID, CMP, CBC, TSH3 wRFLX, [id number] #### [facility] [address] [place] [address] [place] #### ALFRED CHOICE, RA #### [facility] , ALT [Catalytic activity/Vol] 30 U/L Normal 7-52 [facility] Comment on above: Order Comment: PT IS FASTING Performed By: #### L IPID, CMP, CBC, TSH3 wRFLX, [id number] #### [facility] [address] [place] [address] [place] #### ALFRED CHOICE, RA #### [facility] , Anion gap [Moles/Vol] 10.6 mmol/L Normal 6.0-15.0 [facility] Comment on above: Order Comment: PT IS FASTING Performed By: #### L IPID, CMP, CBC, TSH3 wRFLX, [id number] #### [facility] [address] [place] [address] #### ALFRED CHOICE, RA #### [facility] , AST [Catalytic activity/Vol] 17 U/L Normal 13-39 [facility] Comment on above: Order Comment: PT IS FASTING Performed By: #### L IPID, CMP, CBC, TSH3 wRFLX, [id number] #### [facility] [address] [place] [address] [place] #### ALFRED CHOICE, RA #### [facility] , Bilirubin [Mass/Vol] 0.6 mg/dL Normal 0.3-1.0 [facility] Comment on above: Order Comment: PT IS FASTING Performed By: #### L IPID, CMP, CBC, TSH3 wRFLX, [id number] #### [facility] [address] [place] [address] #### ALFRED CHOICE, RA #### [facility] , Calcium [Mass/Vol] 9.0 mg/dL Normal 8.6-10.3 [facility] Comment on above: Order Comment: PT IS FASTING Performed By: #### L IPID, CMP, CBC, TSH3 wRFLX, [id number] #### [facility] [address] [place] [address] [place] #### ALFRED CHOICE, RA #### [facility] , Chloride [Moles/Vol] 107 mmol/L Normal 98-107 [facility] Comment on above: Order Comment: PT IS FASTING Performed By: #### L IPID, CMP, CBC, TSH3 wRFLX, [id number] #### [facility] [address] [place] [address] [place] #### ALFRED CHOICE, RA #### [facility] , CO2 [Moles/Vol] 24.7 mmol/L Normal 21.0-31.0 [facility] Comment on above: Order Comment: PT IS FASTING Performed By: #### L IPID, CMP, CBC, TSH3 wRFLX, [id number] #### [place] [address] [place] #### ALFRED CHOICE, RA #### [facility] , Creatinine [Mass/Vol] 0.62 mg/dL Normal 0.60-1.20 [facility] Comment on above: Order Comment: PT IS FASTING Performed By: #### L IPID, CMP, CBC, TSH3 wRFLX, [id number] #### [place] [address] [place] #### ALFRED CHOICE, RA #### [facility] , GFR/1.73 sq M.predicted MDRD (S/P/Bld) [Vol rate/Area] mL/min/{1.73_m2} Normal [facility] Comment on above: Order Comment: PT IS FASTING Performed By: #### L IPID, CMP, CBC, TSH3 wRFLX, [id number] #### [facility] [address] [place] [address] [place] #### ALFRED CHOICE, RA #### [facility] , Globulin (S) [Mass/Vol] 2.3 g/dL Normal [facility] Comment on above: Order Comment: PT IS FASTING Performed By: #### L IPID, CMP, CBC, TSH3 wRFLX, [id number] #### [facility] [address] [place] [address] [place] #### ALFRED CHOICE, RA #### [facility] , Glucose [Mass/Vol] 93 mg/dL Normal 70-100 [facility] Comment on above: Order Comment: PT IS FASTING Result Comment: [facility] Glucose Reference Range is dependent on time and content of last meal. Glucose of more than 200 mg/dL in a nonstressed, ambulatory subject supports the diagnosis of Diabetes Mellitus. ADA recommended reference range Performed By: #### L IPID, CMP, CBC, TSH3 wRFLX, [id number] #### [facility] [address] [place] [address] [place] #### ALFRED CHOICE, RA #### [facility] , Potassium [Moles/Vol] 4.3 mmol/L Normal 3.5-5.1 [facility] Comment on above: Order Comment: PT IS FASTING Performed By: #### L IPID, CMP, CBC, TSH3 wRFLX, [id number] #### [place] [address] [place] #### ALFRED CHOICE, RA #### [facility] , Protein [Mass/Vol] 6.5 g/dL Normal 6.4-8.9 [facility] Comment on above: Order Comment: PT IS FASTING Performed By: #### L IPID, CMP, CBC, TSH3 wRFLX, [id number] #### [place] [address] [place] #### ALFRED CHOICE, RA #### [facility] , Sodium [Moles/Vol] 138 mmol/L Normal 136-145 [facility] Comment on above: Order Comment: PT IS FASTING Performed By: #### L IPID, CMP, CBC, TSH3 wRFLX, [id number] #### [facility] [address] [place] [address] [place] #### ALFRED CHOICE, RA #### [facility] , Urea nitrogen [Mass/Vol] 12 mg/dL Normal 7-25 [facility] Comment on above: Order Comment: PT IS FASTING Performed By: #### L IPID, CMP, CBC, TSH3 wRFLX, [id number] #### [facility] [address] #### ALFRED VASQUEZ, RA #### [facility] , Creatinine [Mass/volume] in Serum or PlasmaOrdered By: Page Magaña on 10-27-2022 Creatinine [Mass/Vol] 0.62 mg/dL 0.60-1.20 [facility] Eosinophils Auto (Bld) [#/Vo l]Ordered By: Page Magaña on 10-27-2022 Eosinophils (Bld) [#/Vol] 0.1 10*3/uL 0.0-0.45 [facility] Eosinophils/100 WBC Auto (Bl d)Ordered By: Page Magaña on 10-27-2022 Eosinophils/100 WBC (Bld) 1.6 % . [facility] Erythrocyte distribution wid th Auto (RBC) [Ratio]Ordered By: Page Magaña on 10-27-2022 Erythrocyte distribution width (RBC) [Ratio] 14.4 % 11.9-15.3 [facility] Globulin Calc (S) [Mass/Vol] Ordered By: Page Magaña on 10-27-2022 Globulin (S) [Mass/Vol] 2.3 g/dL [facility] Glucose [Mass/volume] in Ser um or PlasmaOrdered By: Page Magaña on 10-27-2022 Glucose [Mass/Vol] 93 mg/dL 70-100 [facility] Comment on above: ADA recommended refe rence rangeRandom Glucose Reference Range is dependent on time and content of last meal. Glucose of more than 200 mg/dL in a nonstressed, ambulatory subject supports the diagnosis of Diabetes Mellitus. Hematocrit Auto (Bld) [Volum e fraction]Ordered By: Page Magaña on 10-27-2022 Hematocrit (Bld) [Volume fraction] 40.5 % 34.0-46.4 [facility] Hemoglobin [Mass/volume] in BloodOrdered By: Page Magaña 10-27-2022 Hemoglobin (Bld) [Mass/Vol] 13.5 g/dL 11.8-15.4 [facility] Leukocytes [#/volume] correc mague for nucleated erythrocytes in Blood by Automated counOrdered By: Page Magaña on 10-27-2022 WBC corrected for nucl RBC Auto (Bld) [#/Vol] 9.1 10*3/uL 3.8-11.6 [facility] Lipid Panelon 10-27-2022 Cholesterol [Mass/Vol] 209 mg/dL High 140-200 [facility] Comment on above: Order Comment: PT IS FASTING Result Comment: Chol less than 200 mg/dl low risk Chol 201-239 mg/dl borderline risk Chol 240 mg/dl and greater high risk Performed By: #### L IPID, CMP, CBC, TSH3 wRFLX, [id number] #### [facility] [address] [place] [address] [place] #### ALFRED VASQUEZ, RA #### [facility] , Cholesterol in HDL [Mass/Vol] 43 mg/dL Normal 35-85 [facility] Comment on above: Order Comment: PT IS FASTING Result Comment: HDL CHOL ATP-III CLASSIFICATION Cardiovascular Risk HDL > or equal to 60 mg/dL LOW HDL < 40 mg/dL HIGH Performed By: #### L IPID, CMP, CBC, TSH3 wRFLX, [id number] #### [facility] [address] [place] [address] [place] #### ALFRED VASQUEZ, RA #### [facility] , Cholesterol.total/Poonam sterol in HDL [Mass ratio] 4.9 {ratio} Normal <5.0 [facility] Comment on above: Order Comment: PT IS FASTING Performed By: #### L IPID, CMP, CBC, TSH3 wRFLX, [id number] #### [facility] [address] [place] [address] [place] #### ALFRED VASQUEZ, RA #### [facility] , LDL Cholesterol,Calculated 155 mg/dL High 0-100 [facility] Comment on above: Order Comment: PT IS FASTING Result Comment: LDL ATP III CLASSIFICATION LDL less than 100 mg/dL Optimal LDL 100-129 mg/dL Near or above optimal LDL 130-159 mg/dL Borderline high LDL 160-189 mg/dL High LDL greater than 189 mg/dL Very high Performed By: #### L IPID, CMP, CBC, TSH3 wRFLX, [id number] #### [facility] [address] [place] [address] [place] #### ALFRED CHOICE, RA #### [facility] , Triglyceride w/Reflex 55 mg/dL Normal 0-149 [facility] Comment on above: Order Comment: PT IS FASTING Result Comment: TRIG ATP III CLASSIFICATION TRIG less than 150 mg/dL Normal TRIG 150-199 mg/dL Borderline high TRIG 200-500 mg/dL High TRIG greater than 500 mg/dL Very high Standard traceable to the Center for Disease Conrtrol and Prevention (CDC) test method. Performed By: #### L IPID, CMP, CBC, TSH3 wRFLX, [id number] #### [place] [address] [place] #### ALFRED CHOICE, RA #### [facility] , VLDL CHOLESTEROL 11 mg/dL Normal [facility] Comment on above: Order Comment: PT IS FASTING Performed By: #### L IPID, CMP, CBC, TSH3 wRFLX, [id number] #### [facility] [address] [place] [address] [place] #### ALFRED CHOICE, RA #### [facility] , Lymphocytes Auto (Bld) [#/Vo l]Ordered By: Page Magaña on 10-27-2022 Lymphocytes (Bld) [#/Vol] 2.8 10*3/uL 1.00-4.8 [facility] Lymphocytes/100 WBC Auto (Bl d)Ordered By: Page Magaña on 10-27-2022 Lymphocytes/100 WBC (Bld) 30.3 % . [facility] MCH Auto (RBC) [Entitic mass ]Ordered By: Page Magaña on 10-27-2022 MCH (RBC) [Entitic mass] 28.1 pg 24.7-34.3 [facility] MCHC Auto (RBC) [Mass/Vol]Or dered By: Page Magaña on 10-27-2022 MCHC (RBC) [Mass/Vol] 33.3 g/dL 32.0-35.0 [facility] MCV Auto (RBC) [Entitic vol] Ordered By: Page Magaña on 10-27-2022 MCV (RBC) [Entitic vol] 84.6 fL 80-100 [facility] Monocytes Auto (Bld) [#/Vol] Ordered By: Page Magaña on 10-27-2022 Monocytes (Bld) [#/Vol] 0.6 10*3/uL 0.0-0.8 [facility] Monocytes/100 WBC Auto (Bld) Ordered By: Page Magaña on 10-27-2022 Monocytes/100 WBC (Bld) 6.7 % . [facility] Neutrophils Auto (Bld) [#/Vo l]Ordered By: Page Magaña on 10-27-2022 Neutrophils (Bld) [#/Vol] 5.5 10*3/uL 1.8-7.7 [facility] Neutrophils/100 WBC Auto (Bl d)Ordered By: Page Magaña on 10-27-2022 Neutrophils/100 WBC (Bld) 60.8 % . [facility] No Panel InformationOrdered By: Page Magaña on 10-27-2022 Estimated GFR (CKD-EPI) > 60.0 mL/Min [facility] Creatinine Clearance (Chem N/A [facility] Nucleated erythrocytes [Pres ence] in Blood by Automated countOrdered By: Page Magaña on 10-27-2022 Nucleated RBC Auto Ql (Bld) 0.3 /100{WBC} 0-0.5 [facility] Platelet mean volume Auto (B ld) [Entitic vol]Ordered By: Page Magaña on 10-27-2022 Platelet mean volume (Bld) [Entitic vol] 8.9 fL 6.3-10.7 [facility] Platelets Auto (Bld) [#/Vol] Ordered By: Page Magaña on 10-27-2022 Platelets (Bld) [#/Vol] 246 10*3/uL 150-450 [facility] Potassium [Moles/volume] in Serum or PlasmaOrdered By: Page Magaña on 10-27-2022 Potassium [Moles/Vol] 4.3 mmol/L 3.5-5.1 [facility] Protein [Mass/volume] in Ser um or PlasmaOrdered By: Page Magaña on 10-27-2022 Protein [Mass/Vol] 6.5 g/dL 6.4-8.9 [facility] RBC Auto (Bld) [#/Vol]Ordere d By: Page Magaña on 10-27-2022 RBC (Bld) [#/Vol] 4.79 10*6/uL 3.60-5.00 [facility] Rheumatoid Factoron 10-28-19 23 Rheumatoid Factor <10.0 Normal <14.0 [facility] Comment on above: Result Comment: Perf ormed at: CB - [facility] [address] [id number] Car Filler: Ismael Suh PhD, Phone: [phone] Performed By: #### F FN #### [address] Serum or plasma albumin/glob ulin mass ratioOrdered By: Page Magaña on 10-27-2022 Albumin/Globulin [Mass ratio] 1.8 {ratio} [facility] Serum or plasma anion gap de terminationOrdered By: Page Magaña on 10-27-2022 Anion gap [Moles/Vol] 10.6 mmol/L 6.0-15.0 [facility] Serum or plasma high density lipoprotein (HDL) cholesterol measurementOrdered By: Page Magaña on 10-27-2022 Cholesterol in HDL [Mass/Vol] 43 mg/dL 35-85 [facility] Comment on above: HDL CHOL ATP-III CLA SSIFICATION Cardiovascular RiskHDL > or equal to 60 mg/dL LOWHDL < 40 mg/dL HIGH Serum or plasma total choles terol/high density lipoprotein (HDL) cholesterol mass ratOrdered By: Page Magaña on 10-27-2022 Cholesterol.total/Poonam sterol in HDL [Mass ratio] 4.9 {ratio} <5.0 [facility] Sodium [Moles/volume] in Ser um or PlasmaOrdered By: Page Magaña on 10-27-2022 Sodium [Moles/Vol] 138 mmol/L 136-145 [facility] Thyroid Stim Hormone w/Rflxo n 10-27-2022 Thyroid Stim Hormone w/Rflx 0.76 u[iU]/mL Normal 0.45-5.33 [facility] Comment on above: Order Comment: PT IS FASTING Performed By: #### L IPID, CMP, CBC, TSH3 wRFLX, [id number] #### [facility] [address] #### ALFRED CHOICE, RA #### [facility] , Thyrotropin [Units/volume] i n Serum or PlasmaOrdered By: Page Magaña on 10-27-2022 TSH Qn 0.76 m[IU]/L 0.45-5.33 [facility] Triglyceride [Mass/volume] i n Serum or PlasmaOrdered By: Page Magaña on 10-27-2022 Triglyceride [Mass/Vol] 55 mg/dL 0-149 [facility] Comment on above: TRIG ATP III CLASSIF ICATIONTRIG less than 150 mg/dL NormalTRIG 150-199 mg/dL Borderline highTRIG 200-500 mg/dL High TRIG greater than 500 mg/dL Very highStandard traceable to the Center for Disease Conrtrol and Prevention (CDC) test method. Urea nitrogen [Mass/volume] in Serum or PlasmaOrdered By: Page Magaña on 10-27-2022 Urea nitrogen [Mass/Vol] 12 mg/dL 7-25 [facility] Vitamin D 25 Hydroxy Totalon 10-27-2022 Vitamin D 25 Hydroxy Total 22.1 ng/mL Low 30-100 [facility] Comment on above: Order Comment: Comme [...] practice guideline. JCEM. 2010; 96(7):1911-30. PERFORMED BY: [facility] [place] [id number] PATHOLOGIST MANUFACTURING SPECIALIST JERRY CASTRO M.D. Performed By: #### F FN #### [address] Vitamin D+Metabolites [Mass/ volume] in Serum or PlasmaOrdered By: Page Magaña on 10-27-2022 Vitamin D+Metabolites [Mass/Vol] 22.1 ng/mL 30-100 [facility] Comment on above: VITAMIN D STATUS 25( [place])VITAMIN D RANGE (ng/mL) Deficient <20 Insufficient 20 to <30Sufficient 30 to 100Reference: Helen MF,Lino NC, Gildardo MARTELL, et al. Evaluation,treatment, and prevention of vitamin D deficiency; an Endocrine Society clinical practice guideline. JCEM. 2010; 96(7):1911-30. WBC Auto (Bld) [#/Vol]Ordere d By: Page Magaña on 10-27-2022 WBC (Bld) [#/Vol] 9.1 10*3/uL 3.8-11.6 [facility] Vital Signs Date Time Vital Sign Value Performing Clinician Facility 06-28-2023 05:30-0500 Body temperature 98.8 [degF] DO Sallie Magaña Work Phone: [facility] 06-28-2023 05:30-0500 Diastolic blood pressure 79 mm[Hg] DO Sallie Magaña Work Phone: [facility] 06-28-2023 05:30-0500 Heart rate 80 /min DO Sallie Magaña Work Phone: [facility] 06-28-2023 05:30-0500 Respiratory rate 20 /min DO Sallie Magaña Work Phone: [facility] 06-28-2023 05:30-0500 SaO2% (BldA) [Mass fraction] 98 % DO Sallie Magaña Work Phone: [facility] 06-28-2023 05:30-0500 Systolic blood pressure 121 mm[Hg] DO Sallie Magaña Work Phone: [facility] 06-26-2023 20:49-0500 Body height 152.4 cm DO Sallie Magaña Work Phone: [facility] 06-26-2023 20:49-0500 Body weight 74.38 kg DO Sallie Magaña Work Phone: [facility] 01-24-2023 13:44-0400 Diastolic blood pressure 73 mm[Hg] DO Sallie Magaña Work Phone: [facility] 01-24-2023 13:44-0400 Heart rate 104 /min DO Sallie Magaña Work Phone: [facility] 01-24-2023 13:44-0400 Respiratory rate 16 /min DO Sallie Magaña Work Phone: [facility] 01-24-2023 13:44-0400 SaO2% (BldA) [Mass fraction] 98 % DO Sallie Magaña Work Phone: [facility] 01-24-2023 13:44-0400 Systolic blood pressure 117 mm[Hg] DO Sallie Magaña Work Phone: [facility] 01-24-2023 10:11-0400 Body height 152.4 cm DO Sallie Magaña Work Phone: [facility] 01-24-2023 10:11-0400 Body temperature 98.5 [degF] DO Sallie Magaña Work Phone: [facility] 01-24-2023 10:11-0400 Body weight 67.58 kg DO Sallie Magaña Work Phone: [facility] 11-08-2022 15:30-0400 Body height 147.96 cm Hilario Reynolds Other [facility] Other 11-08-2022 15:30-0400 Body mass index (BMI) [Ratio] 34.23 kg/m2 Hilario Reyonlds Other [facility] Other 11-08-2022 15:30-0400 Body weight 74.93 kg Hilario Reynolds Other [facility] Other 11-08-2022 15:30-0400 Diastolic blood pressure 90 mm[Hg] Hilario Hearddiff Other [facility] Other 11-08-2022 15:30-0400 Respiratory rate 18 /min Hilario Hearddiff Other [facility] Other 11-08-2022 15:30-0400 SaO2% (BldA) [Mass fraction] 97 % Hilario Hearddiff Other [facility] Other 11-08-2022 15:30-0400 Systolic blood pressure 135 mm[Hg] Hilario Hearddiff Other [facility] Other Encounters Encounter Date Encounter Type Care Provider Facility Start: 08-04-2023 Telephone encounter Camila Gallego MD Work Phone: [facility] Start: 08-03-2023 End: 08-03-2023 ambulatory [facility] Start: 08-01-2023 End: 08-01-2023 ambulatory EDGAR MARIAELENA Not Available Start: 07-19-2023 End: 07-19-2023 ambulatory EDGAR MARIAELENA Not Available Start: 07-04-2023 End: 07-04-2023 ambulatory EDGAR MARIAELENA Not Available Start: 06-29-2023 ambulatory Alfredo LANDIN Facility:[facility] Start: 06-27-2023 End: 06-28-2023 ambulatory Alfredo LANDIN Facility:CD:[id number] Start: 06-26-2023 End: 06-28-2023 ambulatory Sallie Owenslynettegeorgie Facility:[facility] Start: 06-26-2023 End: 06-28-2023 Evaluation and management of inpatient DO Sallie Magaña Work Phone: [facility] Work Phone: Start: 06-26-2023 End: 06-28-2023 observation encounter DO Sallie Magaña Work Phone: [facility] Work Phone: Start: 06-06-2023 End: 06-06-2023 ambulatory Sallie Owenslynettegeorgie Facility:[facility] Start: 06-06-2023 End: 06-06-2023 Patient encounter procedure DO Sallie Magaña Work Phone: [facility] [employer] Work Phone: Start: 05-29-2023 End: 05-29-2023 ambulatory BRANDON CAMARGO Not Available Start: 05-06-2023 End: 05-06-2023 ambulatory Sallie Owenslynettegeorgie Facility:[facility] Start: 05-06-2023 End: 05-06-2023 ambulatory DO Sallie Magaña Work Phone: [facility] Work Phone: Start: 05-06-2023 End: 05-06-2023 Patient encounter procedure DO Sallie Magaña Work Phone: [facility] [employer] Work Phone: Start: 01-24-2023 End: 01-24-2023 Emergency department patient visit DO Sallie Magaña Work Phone: [facility]-Emergency Room Work Phone: Start: 12-20-2022 End: 12-21-2022 ambulatory Hilario Reynolds Facility:[facility] Start: 12-20-2022 Registered Recurring DO Sallie Helms slava Gracielamelany Work Phone: [facility]-Weight Management Work Phone: Start: 11-08-2022 End: 11-08-2022 ambulatory Hilario Reynolds Other [facility] Other Start: 11-08-2022 Nutrition therapy Hilario Reynolds [facility] Start: 10-27-2022 End: 10-27-2022 ambulatory PagePrabha Owenslynettegeorgie Facility:[facility] Start: 10-27-2022 End: 10-27-2022 ambulatory DO Sallie Magaña Work Phone: [facility] Work Phone: Start: 10-27-2022 End: 10-27-2022 Patient encounter procedure DO Sallie Magaña Work Phone: [facility] [employer] Work Phone: Procedures Date Procedure Procedure Detail Performing Clinician Start: 06-26-2023 Ultrasonography of b ilateral kidneys DO Sallie Magaña Work Phone: Start: 03-10-2023 Microscopic observat ion [Identifier] in Cervix by Cyto stain Camila Gallego MD Work Phone: Plan of Treatment Date Care Activity Detail Author Start: 03-10-2026 Screening for malignant neoplasm of cervix Pap Smear [facility] Start: 06-06-2024 Tobacco Screening Tobacco Screening [facility] Start: 06-05-2024 Adult BMI Screening Adult BMI Screening [facility] Start: 01-02-2024 ambulatory Ambulatory Facility:[facility] Start: 06-28-2023 [facility] Start: 06-26-2023 Referral to urologist [facility] Start: 06-26-2023 Hospital admission [facility] Start: 03-10-2023 Influenza vaccination Influenza Vaccine [facility] Start: 01-24-2023 Diagnostic ultrasound of gravid uterus [facility] Start: 01-24-2023 Ultrasonography of bilateral kidneys US renal BI [facility] Start: 01-24-2023 US Kidney - bilateral [facility] Start: 01-24-2023 Transvaginal obstetric ultrasonography [facility] Start: 2009 DTaP,Tdap and Td Vaccines (1 - Tdap) DTaP,Tdap and Td Vaccines (1 - Tdap) [facility] Start: 2008 Adult BMI Follow Up Plan Adult BMI Follow Up Plan [facility] Start: 2002 Depression Screening Depression Screening [facility] Cefuroxime free [Mass/volume] in Serum or Plasma [facility] Patient Education [facility] Work Phone: Patient referral [facility] [facility] Work Phone: Rheumatoid factor [Units/volume] in Serum or Plasma [facility] Immunizations Immunization Date Immunization Notes Care Provider Fa [facility] 05-06-2020 influenza virus vaccine, unspecified formulation Camila Gallego MD Work Phone: [facility] Payers Date Payer Category Payer Self-pay [id number] 2016 Unknown [id number] 2016 Unknown [employer] SKYLER LOZADAMED [id number] 2016-Present [phone] [address] [place] [address] [id number]. [id number] 1990 Unknown [id number] 2.16.840.1.970057.3.579.2. 727 1990 Unknown [id number] 2.16.840.1.461477.3.579.2. 1259 1990 Unknown [id number] 2.16.840.1.086843.3.579.2. 1259 1990 Unknown [id number] 2.16.840.1.564703.3.579.2. 1259 1990 Unknown [id number] 2.16.840.1.912238.3.579.2. 1259 1990 Unknown [id number] 2.16.840.1.365978.3.579.2. 1286 Medicaid [place] [employer] [id number] Private Health Insurance [facility] [id number] Unknown [id number] 2.16.840.1.436148.19 Unknown [id number] 2.16.840.1.129923.3.579.2. 531 Unknown [id number] 2.16.840.1.602924.3.579.2. 531 Unknown [id number] 2.16.840.1.266560.3.579.2. 531 Unknown [id number] 2.16.840.1.382202.3.579.2. 531 Unknown [id number] 2.16.840.1.498529.3.579.2. 531 Unknown [id number] 2.16.840.1.101915.3.579.2. [address]er's Compensation [facility] Ind [id number] Social History Date Type Detail Facility Start: 05-01-2020 End: 06-05-2023 Tobacco smoking status NHIS Never smoked tobacco (finding) [facility] Start: 1990 Sex Assigned At Female [facility] Start: 08-20-2020 End: 06-06-2023 Sex Assigned At RAP Index Other Start: 06-06-2023 Alcohol intake [facility] (finding[facility] Start: 08-20-2020 End: 06-06-2023 History of Social function [facility] Start: 01-08-2023 [facility] Start: 1990 Sex Assigned At Not on file [facility] [employer] [facility] NEGATED: Highlighted rowStart: NINF History of tobacco use [facility] Goals Date Patient Goal Desired Activity /State Clinical Notes 11-08-2022 to 08-04-2023 Telephone Encounter - Camila Gallego MD - 08/04/2023 1:07 PM ESTTelephone Encounter - Camila Gallego MD - 08/04/2023 1:07 PM EST Note Date & Type Note Facility 08-04-2023 Miscellaneous Notes Formattin g of this note might be different from the original. Called in left voice message in regards to question about placenta accreta. Sonographic assessment was not consistent with abnormal placentation. No signs of placenta accreta by ultrasound. If you have any further questions please do not hesitate to contact our office. CAMILA GALLEGO MD [facility] this encounter [facility] 08-04-2023 Telephone encount er Note Called in left voice message in regards to question about placenta accreta. Sonographic assessment was not consistent with abnormal placentation. No signs of placenta accreta by ultrasound. If you have any further questions please do not hesitate to contact our office. CAMILA GALLEGO MD [facility] Work Phone: 06-27-2023 Consult note Note Date/Time June 27, 2023 2:48pm [facility] [address] [place] [address] Urology Consult Note Signed Patient: Elyssa Smith MR#: [id number] : 1990 Acct:[id number] Age/Sex: 33 / F Adm Date: 3 Loc: Room: 5D2471-2 Type: ADM INOo Attending Dr: Emerald Martinez [...] P documented by Dr. Martinez earlier today [facility] Medical History (Updated 06/27/23 @ 07:15 by [...] % (Auto) 87.1, Lymph % (Auto) 8.3, [place] % (Auto) 4.2, Eos % (Auto)0.2, Baso % (Auto) 0.2, Nucleat RBC Rel Count 0.1, Neut # (Auto) 11.9 H, Lymph #(Auto) 1.1, Greene # (Auto) 0.6, Eos # (Auto) 0.0, Baso # (Auto) 0.0 06/26/23 20:07: Fibronectin Negative 06/26/23 19:20: Urine Opiates Screen Negative, Ur Barbiturates Screen Negative, Ur Phencyclidine Scrn Negative, Ur Amphetamines Screen Negative, U Benzodiazepines Scrn Negative, Urine Cocaine Screen Negative 06/26/23 19:20: Urine Color Yellow, Urine Appearance Clear, Urine pH 6.5, Ur Specific [place] 1.009, Urine Protein Trace H, Urine Glucose [...] basis. Documented By: Alfredo Landin MD 06/27/23 2553 Signed By: <Electronically signed by MD Alfredo Landin> 06/27/23 2637 [facility] Work Phone: 1(863) 130-651312-19-2023 History and physical note Author Emerald Martinez [facility] June 27, 2023 7:16am Note Date/Time June 27, 2023 7:10am [facility] [address] [place], [place] [id number] DISABILITY EXAMINER History & Physical Signed Patient: Elyssa Smith MR#: [id number] : 1990 Acct:[id number] Age/Sex: 33 / F Adm Date: 3 Loc: 3E Room: 5C1346-2 Type: REG CLI Attending Dr: Emerald Martinez [...] pain is controlledwith IV pain meds. OB [facility] Medical History (Updated 06/27/23 @ 07:15 by [...] % (Auto) 87.1, Lymph % (Auto) 8.3, [place] % (Auto) 4.2, Eos % (Auto)0.2, Baso % (Auto) 0.2, Nucleat RBC Rel Count 0.1, Neut # (Auto) 11.9 H, Lymph #(Auto) 1.1, Greene # (Auto) 0.6, Eos # (Auto) 0.0, Baso # (Auto) 0.0 06/26/23 20:07: Fibronectin Negative 06/26/23 19:20: Urine Opiates Screen Negative, Ur Barbiturates Screen Negative, Ur Phencyclidine Scrn Negative, Ur Amphetamines Screen Negative, U Benzodiazepines Scrn Negative, Urine Cocaine Screen Negative 06/26/23 19:20: Urine Color Yellow, Urine Appearance Clear, Urine pH 6.5, Ur Specific [place] 1.009, Urine Protein Trace H, Urine Glucose [...] currently. She does see Dr. Erwin in [place] for her care (2) Right kidney stone: Plan: Urology has been consulted- awaiting recommendations (3) Hydronephrosis, right: Plan: Urology has been consulted-awaiting recommendations Documented By: Emerald Martinez DO 06/27/23 07 06 Signed By: <Electronically signed by Emerald Martinez, > 06/27/23 0716 [facility] Work Phone: 1(933) 667-465405-02-2023 Evaluation note* Encounter Date Diagnosis Assessment Notes Treatment Notes Treatment Clinical Notes November, Abnormal weight gain (ICD-10 - R63.5) November, Mixed hyperlipidemia (ICD-10 - E78.2) November, Anxiety (ICD-10 - F41.9) November, Asthma (ICD-10 - J45.909) November, Kidney stones (ICD-1 0 - N20.0) RAP Index Other Evaluation noteNo assessment information available [facility] Work Phone: Evaluation note* Diagnosis Onset Date Resolution Status 26 weeks gestation of acute Hydronephrosis, right acute Right kidney stone acute [facility] Work Phone: History general Narrative - Reported* Type Description Date Medical History asthma Surgical History C section x 2 Surgical History kidney stones Surgical History IUD removed Hospitalization History see surgical hx RAP Index Other Hospital Discharge instructions Additional Instructions Follow-up with your primary care doctor and [facility] Return to ED if you develop worsening symptoms [facility] Work Phone: Hospital Discharge instructions Additional Instructions Follow up with Dr. Villatoro [facility] Work Phone: InstructionsNot on filedocumented in this encounter [facility] Author KIKI BEAL [facility] June 28, 2023 8:04am Note Date/Time June 28, 2023 7:43am [facility] [address] [place] [address] DISABILITY EXAMINER Progress Note Signed Patient: Elyssa Smith MR#: [id number] : 1990 Acct:[id number] Age/Sex: 33 / F Adm Date: 3 Loc: Room: [address] [place] [address] Type: ADM INOo Attending Dr: Emerald Martinez [...] signed by MD KIKI BEAL> 06/28/23 0804 [facility] Work Phone: Chief Complaint and [...] Date/ Time Advance Directives No September 21, 019 9:37pm Advance Directive Response Recorded Date/ Time Advance Directives No September 21, 019 8:37pm Summary Purpose Family History No Family History Records Found Additional Source Comments Care Teams (unrecognized sec tion and content) Team Status: Active Member Role Status Dates Sallie Magaña , Primary Care Provider Active Team Status: Inactive [...] sectionGoals may be documented in an alternate sectionNot on filedocumented as of this encounter REASON FOR VISIT (unrecogniz ed section and content) Initial WMN INFORMATION SOURCE (unrecogn ized section and content) DATE CREATED AUTHOR 07/07/2023 [facility] DATE CREATED AUTHOR AUTHOR'S ORGANIZ ATION 07/15/2023 [facility] DATE CREATED AUTHOR AUTHOR'S ORGANIZ ATION 08/02/2023 [facility] DATE CREATED AUTHOR AUTHOR'S ORGANIZ ATION 08/06/2023 [facility] FOR RECORDS PERTAINING TO PATIENTS WHO ARE [...] BE BASED ON THE PRIMARY CLINICAL RECORDS. [employer] [facility]. provides no warranty or guarantee of the accuracy or completeness of information in this document.
== END 2023-08-14 08:41 | disposition home or self-care (01) ==
LOC: NOMS 08:40
PROVIDERS: Visit Provider Obstetrics & Gynecology
DX: O26.843 Uterine size-date discrepancy, third trimester (principal); Z3A.33 33 weeks gestation of pregnancy; O09.213 Supervision of pregnancy with history of pre-term labor, third trimester
CPT/HCPCS: 76816

== ENCOUNTER 2023-08-17 11:00 | Observation (INO) | payer OTHER, SELFPAY ==
--- NOTE | 2023-08-17 11:10 | US_ITS ---
[address] [address] Patient Name: CARMEN DE LA CRUZ MRN: [id number] date: 1990 Sex: F Assigned Patient Location: [facility] Current Patient Location: [facility] Accession/Order Number: [id number] Exam Date: 08/17/2023 11:15 Report Date: 08/17/2023 12:03 At the request of: EDGAR FERRELL Procedure: US renal BI EXAMINATION: US renal BI HISTORY: back pain COMPARISON: 06/29/2023 TECHNIQUE: Ultrasound examination was performed of the bladder. FINDINGS: Right Kidney: Normal in size and contour. Moderate to severe hydronephrosis. The ureter is not definitively seen. Echogenic foci measuring 5 mm, nonobstructing lower pole nephrolith Height: 5.4 cm Length: 13.6 cm Width: 5.7 cm Left Kidney: Normal in size, contour and echotexture. 8 mm anechoic area lower pole cortex, simple cyst. No solid mass, hydronephrosis or obstructing nephrolithiasis Height: 6.4 cm Length: 11.5 cm Width: 5.1 cm The urinary bladder is nondistended US/US renal BI IMPRESSION: Moderate to severe right hydronephrosis. No obstruction is visualized however should be considered Electronically authenticated by: MARTY KO Date: 08/17/2023 12:03
[2023-08-17 11:15] VITALS: BP 132/92; PULSE 106; TEMP 36.2
--- OUTSIDE RECORDS SUMMARY | 2023-08-17 11:24 | XMS_ITS | CCD ---
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 vol] 86.2 fL 80-100 F [facility] Monocytes Auto (Bld) [#/Vol] Ordered By: Emerald Martinez on 06-26-2023 Monocytes (Bld) [#/Vol] 0.6 10*3/uL 0.0-0.8 [facility] Monocytes/100 WBC Auto (Bld) Ordered By: Emerald Martinez on 06-26-2023 Monocytes/100 WBC (Bld) 4.2 % . F [facility] Neutrophils Auto (Bld) [#/Vo l]Ordered By: Emerald Martinez on 06-26-2023 Neutrophils (Bld) [#/Vol] 11.9 10*3/uL 1.8-7.7 [facility] Neutrophils/100 WBC Auto (Bl d)Ordered By: Emerald Martinez on 06-26-2023 Neutrophils/100 WBC (Bld) 87.1 % . [facility] Nitrite Test strip Ql (U)Ord ered By: Emerald Martinez on 06-26-2023 Nitrite Ql (U) Negative Negative [facility] No Panel InformationOrdered By: Emerald Martinez on 06-26-2023 Estimated GFR (CKD-EPI) > 60.0 mL/Min [facility] Creatinine Clearance (Chem 138.60 [facility] Nucleated erythrocytes [Pres ence] in Blood by Automated countOrdered By: Emerald Martinez on 06-26-2023 Nucleated RBC Auto Ql (Bld) 0.1 /100{WBC} 0-0.5 [facility] OB Urine Drug Screen (NO THC )on 06-26-2023 Amphetamine Screen,Urine Negative Normal Negative [facility] Comment on above: Performed By: #### A DDONUAPLUS, OBUDS #### [address] Barbiturate Screen,Urine Negative Normal Negative [facility] Comment on above: Performed By: #### A DDONUAPLUS, OBUDS #### [place] [address] [place] Benzodiazepines Screen,Urine Negative Normal Negative [facility] Comment on above: Performed By: #### A DDONUAPLUS, OBUDS #### [place] [address] [place] Cocaine Screen,Urine Negative Normal Negative [facility] Comment on above: Performed By: #### A DDONUAPLUS, OBUDS #### [address] Opiate Screen,Urine Negative Normal Negative [facility] Comment on above: Performed By: #### A KAUSHALONUAPLUS, OBUDS #### [facility] [address] [place] [address] Phencyclidine Screen, Urine Negative Normal Negative [facility] Comment on above: Result Comment: Thes e are unconfirmed results and should not be used for legal purposes. Drug Cut-Off Concentration: AMPH 1000 ng/mL DORIS 200 ng/mL LEANNE 200 ng/mL COCM 300 ng/mL OP 300 ng/mL PCP 25 ng/mL PERFORMED BY: [place] [address] PATHOLOGIST BREADING MACHINE TENDER JERRY CASTRO M.D. Performed By: #### A DDONUAPLUS, OBUDS #### [address] Opiates [Presence] in Urine by Screen methodOrdered By: Emerald Martinez on 06-26-2023 Opiates Screen Ql (U) Negative Negative [facility] Phencyclidine Screen Ql (U)O rdered By: [...] volume (Bld) [Entitic vol] 9.8 fL 6.3-10.7 [facility] Platelets Auto (Bld) [#/Vol] Ordered By: Emerald Martinez on 06-26-2023 Platelets (Bld) [#/Vol] 174 10*3/uL 150-450 [facility] Potassium [Moles/volume] in Serum or PlasmaOrdered By: Emerald Martinez on 06-26-2023 Potassium [Moles/Vol] 3.3 mmol/L 3.5-5.1 [facility] Protein Auto test strip (U) [Mass/Vol]Ordered By: Emerald Martinez on 06-26-2023 Protein (U) [Mass/Vol] Trace mg/dL Negative F [facility] Protein [Mass/volume] in Ser um or PlasmaOrdered By: Emerald Martinez on 06-26-2023 Protein [Mass/Vol] 5.5 g/dL 6.4-8.9 [facility] RBC Auto (Bld) [#/Vol]Ordere d By: Emerald Martinez on 06-26-2023 RBC (Bld) [#/Vol] 3.89 10*6/uL 3.60-5.00 [facility] Serum or plasma albumin/glob ulin mass ratioOrdered By: Emerald Martinez on 06-26-2023 Albumin/Globulin [Mass ratio] 1.6 {ratio} [facility] Serum or plasma anion gap de terminationOrdered By: Emerald Martinez on 06-26-2023 Anion gap [Moles/Vol] 12.5 mmol/L 6.0-15.0 [facility] Sodium [Moles/volume] in Ser um or PlasmaOrdered By: Emerald Martinez on 06-26-2023 Sodium [Moles/Vol] 138 mmol/L 136-145 [facility] Specific gravity Auto test s trip (U) [Rel density]Ordered By: Emerald Martinez on 06-26-2023 Specific gravity (U) [Rel density] 1.009 1.001-1.030 [facility] Urea nitrogen [Mass/volume] in Serum or PlasmaOrdered By: Emerald Martinez on 06-26-2023 Urea nitrogen [Mass/Vol] 6 mg/dL 7-25 [facility] Urine bacteria detection by automated methodOrdered By: Emerald Martinez on 06-26-2023 Bacteria Auto Ql (U) Rare None Seen [facility] Urine clarity by refractomet ry automatedOrdered By: Emerald Martinez on 06-26-2023 Clarity Refractometry automated (U) Clear Clear [facility] Urine glucose measurement by automated test strip (mass/volume)Ordered By: Emerald Martinez on 06-26-2023 Glucose Auto test strip (U) [Mass/Vol] Normal mg/dL Normal [facility] Urine hemoglobin detection b y automated test stripOrdered By: Emerald Martinez on 06-26-2023 Hemoglobin Auto test strip Ql (U) 3+ Negative [facility] Urine leukocyte esterase det ection by automated test stripOrdered By: Emerald Martinez on 06-26-2023 Leukocyte esterase Auto test strip Ql (U) Negative Negative [facility] Urobilinogen Auto test strip (U) [Mass/Vol]Ordered By: Emerald Martinez on 06-26-2023 Urobilinogen (U) [Mass/Vol] Normal mg/dL Normal [facility] WBC Auto (Bld) [#/Vol]Ordere d By: Emerald Martinez on 06-26-2023 WBC (Bld) [#/Vol] 13.6 10*3/uL 3.8-11.6 [facility] Yeast detection in urine sed iment by light microscopyOrdered By: Emerald Martinez on 06-26-2023 Yeast LM Ql (Urine sed) Rare [HPF] None Seen F [facility] pH Auto test strip (U)Ordere d By: Emerald Martinez on 06-26-2023 pH (U) 6.5 [pH] 5.0-9.0 [facility] 1,25 Dihydroxy Vit D Calcitr olon 06-06-2023 1,25 Dihydroxy Vit D Calcitrol 123.0 pg/mL High 24.8-81.5 [facility] Comment on above: Result Comment: Perf ormed at: BN - [facility] [address] [id number] Internet Systems Administrator: Dinora Alvarenga MD, Phone: [phone] PERFORMED BY: [facility] [address] [facility] [place] [address] PATHOLOGIST BREADING MACHINE TENDER JERRY CASTRO M.D. Performed By: #### P TH, CMP, [id number] ####[facility]#### [id number] ####[facility] , Alanine aminotransferase [En zymatic activity/volume] in Serum or PlasmaOrdered By: Latrice Sepulveda on 06-06-2023 ALT [Catalytic activity/Vol] 19 U/L 7-52 [facility] Albumin [Mass/volume] in Ser um or Plasma by Bromocresol green (BCG) dye binding methoOrdered By: Latrice Sepulveda on 06-06-2023 Albumin BCG dye [Mass/Vol] 3.5 g/dL 3.5-5.7 [facility] Alkaline phosphatase [Enzyma tic activity/volume] in Serum or PlasmaOrdered By: Latrice Sepulveda on 06-06-2023 ALP [Catalytic activity/Vol] 84 U/L 34-104 [facility] Aspartate aminotransferase [ Enzymatic activity/volume] in Serum or PlasmaOrdered By: Latrice Sepulveda on 06-06-2023 AST [Catalytic activity/Vol] 16 U/L 13-39 [facility] Bilirubin.total [Mass/volume ] in Serum or PlasmaOrdered By: Latrice Sepulveda on 06-06-2023 Bilirubin [Mass/Vol] 0.3 mg/dL 0.3-1.0 [facility] Calcium [Mass/volume] in Ser um or PlasmaOrdered By: Latrice Sepulveda on 06-06-2023 Calcium [Mass/Vol] 8.6 mg/dL 8.6-10.3 [facility] Carbon dioxide, total [Moles /volume] in Serum or PlasmaOrdered By: Latrice Sepulveda on 06-06-2023 CO2 [Moles/Vol] 24.8 mmol/L 21.0-31.0 [facility] Chloride [Moles/volume] in S gris or PlasmaOrdered By: Latrice Sepulveda on 06-06-2023 Chloride [Moles/Vol] 107 mmol/L 98-107 [facility] Comprehensive Metabolic Pane mauricio 06-06-2023 Albumin [Mass/Vol] 3.5 g/dL Normal 3.5-5.7 [facility] Comment on above: Performed By: #### P TH, CMP, [id number] ####[place] [address] [place]#### [id number] ####[facility] , Albumin/Globulin [Mass ratio] 1.5 {ratio} Normal [facility] Comment on above: Performed By: #### P TH, CMP, [id number] ####[place] [address] [place]#### [id number] ####[facility] , ALP [Catalytic activity/Vol] 84 U/L Normal 34-104 [facility] Comment on above: Performed By: #### P TH, CMP, [id number] ####[address] [place] [id number] [place]#### [id number] ####[facility] , ALT [Catalytic activity/Vol] 19 U/L Normal 7-52 [facility] Comment on above: Performed By: #### P TH, CMP, [id number] ####[place] [address] [place]#### [id number] ####[facility] , Anion gap [Moles/Vol] 9.9 mmol/L Normal 6.0-15.0 [facility] Comment on above: Performed By: #### P TH, CMP, [id number] ####[address]#### [id number] ####[facility] , AST [Catalytic activity/Vol] 16 U/L Normal 13-39 [facility] Comment on above: Performed By: #### P TH, CMP, [id number] ####[address]#### [id number] ####[facility] , Bilirubin [Mass/Vol] 0.3 mg/dL Normal 0.3-1.0 [facility] Comment on above: Performed By: #### P TH, CMP, [id number] ####[place] [address] [place]#### [id number] ####[facility] , Calcium [Mass/Vol] 8.6 mg/dL Normal 8.6-10.3 [facility] Comment on above: Performed By: #### P TH, CMP, [id number] ####[address]#### [id number] ####[facility] , Chloride [Moles/Vol] 107 mmol/L Normal 98-107 [facility] Comment on above: Performed By: #### P TH, CMP, [id number] ####[place] [address] [place]#### [id number] ####[facility] , CO2 [Moles/Vol] 24.8 mmol/L Normal 21.0-31.0 [facility] Comment on above: Performed By: #### P TH, CMP, [id number] ####[address]#### [id number] ####[facility] , Creatinine [Mass/Vol] 0.45 mg/dL Low 0.60-1.20 [facility] Comment on above: Performed By: #### P TH, CMP, [id number] ####[place] [address] [place]#### [id number] ####[facility] , GFR/1.73 sq M.predicted MDRD (S/P/Bld) [Vol rate/Area] mL/min/{1.73_m2} Normal [facility] Comment on above: Performed By: #### P TH, CMP, [id number] ####[address]#### [id number] ####[facility] , Globulin (S) [Mass/Vol] 2.4 g/dL Normal [facility] Comment on above: Performed By: #### P TH, CMP, [id number] ####[address]#### [id number] ####[facility] , Glucose [Mass/Vol] 89 mg/dL Normal 70-100 [facility] Comment on above: Result Comment: [place] Glucose Reference Range is dependent on time and content of last meal. Glucose of more than 200 mg/dL in a nonstressed, ambulatory subject supports the diagnosis of Diabetes Mellitus. ADA recommended reference range Performed By: #### P TH, CMP, [id number] ####[place] [address] [place]#### [id number] ####[facility] , Potassium [Moles/Vol] 3.7 mmol/L Normal 3.5-5.1 [facility] Comment on above: Performed By: #### P TH, CMP, [id number] ####[address] [place] [address] [place]#### [id number] ####[facility] , Protein [Mass/Vol] 5.9 g/dL Low 6.4-8.9 [facility] Comment on above: Performed By: #### P TH, CMP, [id number] ####[place] [address] [place]#### [id number] ####[facility] , Sodium [Moles/Vol] 138 mmol/L Normal 136-145 [facility] Comment on above: Performed By: #### P TH, CMP, [id number] ####[place] [address] [place]#### [id number] ####[facility] , Urea nitrogen [Mass/Vol] 5 mg/dL Low 7-25 [facility] Comment on above: Performed By: #### P TH, CMP, [id number] ####[place] [address] [place]#### [id number] ####[facility] , Creatinine [Mass/volume] in Serum or PlasmaOrdered By: Latrice Sepulveda on 06-06-2023 Creatinine [Mass/Vol] 0.45 mg/dL 0.60-1.20 [facility] Globulin Calc (S) [Mass/Vol] Ordered By: Latrice Sepulveda on 06-06-2023 Globulin (S) [Mass/Vol] 2.4 g/dL [facility] Glucose [Mass/volume] in Ser um or PlasmaOrdered By: Latrice Sepulveda on 06-06-2023 Glucose [Mass/Vol] 89 mg/dL 70-100 [facility] Comment on above: ADA recommended refe rence rangeRandom Glucose Reference Range is dependent on time and content of last meal. Glucose of more than 200 mg/dL in a nonstressed, ambulatory subject supports the diagnosis of Diabetes Mellitus. No Panel InformationOrdered By: Latrice Sepulveda on 06-06-2023 Estimated GFR (CKD-EPI) > 60.0 mL/Min [facility] Creatinine Clearance (Chem N/A [facility] Parathyrin.intact [Mass/volu me] in Serum or PlasmaOrdered By: Latrice Sepulveda on 06-06-2023 Parathyrin.intact [Mass/Vol] 45.8 pg/mL [facility] Parathyroid Hormone Intacton 06-06-2023 Parathyroid Hormone Intact 45.8 pg/mL Normal [facility] Comment on above: Result Comment: PERF ORMED BY: [facility] [address] [place] [address] PATHOLOGIST BREADING MACHINE TENDER JERRY CASTRO M.D. Performed By: #### P TH, CMP, [id number] ####[facility]#### [id number] ####[facility] , Potassium [Moles/volume] in Serum or PlasmaOrdered By: Latrice Sepulveda on 06-06-2023 Potassium [Moles/Vol] 3.7 mmol/L 3.5-5.1 [facility] Protein [Mass/volume] in Ser um or PlasmaOrdered By: Latrice Sepulveda on 06-06-2023 Protein [Mass/Vol] 5.9 g/dL 6.4-8.9 [facility] Serum or plasma albumin/glob ulin mass ratioOrdered By: Latrice Sepulveda on 06-06-2023 Albumin/Globulin [Mass ratio] 1.5 {ratio} [facility] Serum or plasma anion gap de terminationOrdered By: Latrice Sepulveda on 06-06-2023 Anion gap [Moles/Vol] 9.9 mmol/L 6.0-15.0 [facility] Serum or plasma calcitriol m easurement (mass/volume)Ordered By: Latrice Sepulveda on 06-06-2023 1,25-dihydroxyvitamin D3 [Mass/Vol] 123.0 pg/mL 24.8-81.5 [facility] Comment on above: Performed at: [address] [place] [id number] Director: Dinora Alvarenga MD, Phone: [phone] Sodium [Moles/volume] in Ser um or PlasmaOrdered By: Latrice Sepulveda on 06-06-2023 Sodium [Moles/Vol] 138 mmol/L 136-145 [facility] Urea nitrogen [Mass/volume] in Serum or PlasmaOrdered By: Latrice Sepulveda on 06-06-2023 Urea nitrogen [Mass/Vol] 5 mg/dL 7-25 [facility] Vitamin D 25 Hydroxy Totalon 06-06-2023 Vitamin D 25 Hydroxy Total 22.4 ng/mL Low 30-100 [facility] Comment on above: Result Comment: HARVINDER MIN D STATUS 25(OH)VITAMIN D RANGE (ng/mL) Deficient <20 Insufficient 20 to <30 Sufficient 30 to 100 Reference: Lino Pena, Gildardo MARTELL, et al. Evaluation,treatment, and prevention of vitamin D deficiency; an Endocrine Society clinical practice guideline. JCEM. 2010; 96(7):1911-30. PERFORMED BY: [facility] [address] [place] [address] PATHOLOGIST BREADING MACHINE TENDER JERRY CASTRO M.D. Performed By: #### P , [facility], [id number] ####[facility]#### [id number] ####[facility] , Vitamin D+Metabolites [Mass/ volume] in Serum or PlasmaOrdered By: Latrice Sepulveda on 06-06-2023 Vitamin D+Metabolites [Mass/Vol] 22.4 ng/mL 30-100 [facility] Comment on above: VITAMIN D STATUS 25( [place])VITAMIN D RANGE (ng/mL) Deficient <20 Insufficient 20 to <30Sufficient 30 to 100Reference: Lino Pena, Gildardo MARTELL, et al. Evaluation,treatment, and prevention of vitamin D deficiency; an Endocrine Society clinical practice guideline. JCEM. 2010; 96(7):1911-30. Vitamin D 25 Hydroxy Totalon 05-06-2023 Vitamin D 25 Hydroxy Total 21.0 ng/mL Low 30-100 [facility] Comment on above: Order Comment: NON F ASTING Result Comment: HARVINDER MIN D STATUS 25(OH)VITAMIN D RANGE (ng/mL) Deficient <20 Insufficient 20 to <30 Sufficient 30 to 100 Reference: Lino Pena, Gildardo MARTELL, et al. Evaluation,treatment, and prevention of vitamin D deficiency; an Endocrine Society clinical practice guideline. JCEM. 2010; 96(7):1911-30. PERFORMED BY: [facility] [address] [place] [address] PATHOLOGIST BREADING MACHINE TENDER JERRY CASTRO M.D. Performed By: #### V [id number] ####[facility] [address] [place] [address] [facility] Vitamin D+Metabolites [Mass/ volume] in Serum or PlasmaOrdered By: Page Magaña on 05-06-2023 Vitamin D+Metabolites [Mass/Vol] 21.0 ng/mL 30-100 [facility] Comment on above: VITAMIN D STATUS 25( [place])VITAMIN D RANGE (ng/mL) Deficient <20 Insufficient 20 to <30Sufficient 30 to 100Reference: Lino Pena, Gildardo MARTELL, et al. Evaluation,treatment, and prevention of vitamin D deficiency; an Endocrine Society clinical practice guideline. JCEM. 2010; 96(7):1911-30. Alanine aminotransferase [En zymatic activity/volume] in Serum or PlasmaOrdered By: Sarmad Luque on 01-24-2023 ALT [Catalytic activity/Vol] 20 U/L 7-52 [facility] Albumin [Mass/volume] in Ser um or Plasma by Bromocresol green (BCG) dye binding methoOrdered By: Sarmad Luque on 01-24-2023 Albumin BCG dye [Mass/Vol] 4.7 g/dL 3.5-5.7 [facility] Alkaline phosphatase [Enzyma tic activity/volume] in Serum or PlasmaOrdered By: Sarmad Luque on 01-24-2023 ALP [Catalytic activity/Vol] 71 U/L 34-104 [facility] Aspartate aminotransferase [ Enzymatic activity/volume] in Serum or PlasmaOrdered By: Sarmad Luque on 01-24-2023 AST [Catalytic activity/Vol] 14 U/L 13-39 [facility] Automated erythrocytes count in urine sediment (number/area)Ordered By: Sarmad Luque on 01-24-2023 RBC Auto (Urine sed) [#/Area] 20-49 [HPF] 0-4 [facility] Automated leukocytes count i n urine sediment (number/area)Ordered By: Sarmad Luque on 01-24-2023 WBC Auto (Urine sed) [#/Area] 1-2 [HPF] 0-4 [facility] Basic Metabolic Panelon 01-07 Anion gap [Moles/Vol] 11.4 mmol/L Normal 6.0-15.0 [facility] Comment on above: Performed By: #### C BC, HEPATIC, BMP, LIPASE ####[address] [place] [address] [facility] Calcium [Mass/Vol] 9.0 mg/dL Normal 8.6-10.3 [facility] Comment on above: Performed By: #### C BC, HEPATIC, BMP, LIPASE ####[address] [place] [address] [place] Chloride [Moles/Vol] 105 mmol/L Normal 98-107 [facility] Comment on above: Performed By: #### C BC, HEPATIC, BMP, LIPASE ####[facility] [place] [address] [facility] CO2 [Moles/Vol] 25.0 mmol/L Normal 21.0-31.0 [facility] Comment on above: Performed By: #### C BC, HEPATIC, BMP, LIPASE ####[facility] [place] [address] [place] Creatinine [Mass/Vol] 0.67 mg/dL Normal 0.60-1.20 [facility] Comment on above: Performed By: #### C BC, HEPATIC, BMP, LIPASE ####[facility] [place] [address] [place] Creatinine Clr Calc Pharmacy 103.40 Normal [facility] Comment on above: Performed By: #### C BC, HEPATIC, BMP, LIPASE ####[address] GFR/1.73 sq M.predicted MDRD (S/P/Bld) [Vol rate/Area] mL/min/{1.73_m2} Normal [facility] Comment on above: Performed By: #### C BC, HEPATIC, BMP, LIPASE ####[address] Glucose [Mass/Vol] 89 mg/dL Normal 70-100 [facility] Comment on above: Result Comment: [facility] Glucose Reference Range is dependent on time and content of last meal. Glucose of more than 200 mg/dL in a nonstressed, ambulatory subject supports the diagnosis of Diabetes Mellitus. ADA recommended reference range Performed By: #### C BC, HEPATIC, BMP, LIPASE ####[address] Potassium [Moles/Vol] 3.4 mmol/L Low 3.5-5.1 [facility] Comment on above: Performed By: #### C BC, HEPATIC, BMP, LIPASE ####[address] Sodium [Moles/Vol] 138 mmol/L Normal 136-145 [facility] Comment on above: Performed By: #### C BC, HEPATIC, BMP, LIPASE ####[address] Urea nitrogen [Mass/Vol] 6 mg/dL Low 7-25 [facility] Comment on above: Performed By: #### C BC, HEPATIC, BMP, LIPASE ####[address] Basophils Auto (Bld) [#/Vol] Ordered By: Sarmad Luque on 01-24-2023 Basophils (Bld) [#/Vol] 0.1 10*3/uL 0.0-0.2 [facility] Basophils/100 WBC Auto (Bld) Ordered By: Sarmad Luque on 01-24-2023 Basophils/100 WBC (Bld) 0.8 % . F [facility] Bilirubin Test strip Ql (U)O rdered By: Sarmad Luque on 01-24-2023 Bilirubin Ql (U) Negative Negative [facility] Bilirubin.direct [Mass/volum e] in Serum or PlasmaOrdered By: Sarmad Luque on 01-24-2023 Bilirubin.direct [Mass/Vol] 0.20 mg/dL 0.03-0.18 [facility] Bilirubin.total [Mass/volume ] in Serum or PlasmaOrdered By: Sarmad Luque on 01-24-2023 Bilirubin [Mass/Vol] 0.9 mg/dL 0.3-1.0 [facility] Calcium [Mass/volume] in Ser um or PlasmaOrdered By: Sarmad Luque on 01-24-2023 Calcium [Mass/Vol] 9.0 mg/dL 8.6-10.3 [facility] Carbon dioxide, total [Moles /volume] in Serum or PlasmaOrdered By: Sarmad Luque on 01-24-2023 CO2 [Moles/Vol] 25.0 mmol/L 21.0-31.0 [facility] Chloride [Moles/volume] in S gris or PlasmaOrdered By: Sarmad Luque on 01-24-2023 Chloride [Moles/Vol] 105 mmol/L 98-107 [facility] Choriogonadotropin.beta subu nit [Units/volume] in Serum or PlasmaOrdered By: Sarmad Luque on 01-24-2023 HCG.beta subunit Qn 120.64 m[IU]/mL [facility] Comment on above: Approximate Approxim ate hCG Gestational Age Range (mIU/ml) (weeks)0.2-1 5-50 1-2 50-500 2-3 100-5,000 3-4 500-10,000 4-5 1,000-50,000 5-6 10,000-100,000 6-8 15,000-200,000 8-12 10,000-100,000 Color Auto (U)Ordered By: Eric Luque on 01-24-2023 Color (U) Yellow Yellow [facility] Complete Blood Count Auto Di ffon 01-24-2023 Basophils (Bld) [#/Vol] 0.1 10*3/uL Normal 0.0-0.2 [facility] Comment on above: Result Comment: PERF ORMED BY: [facility] [place] [address] PATHOLOGIST BREADING MACHINE TENDER JERRY CASTRO M.D. Performed By: #### C BC, HEPATIC, BMP, LIPASE ####[address] Basophils/100 WBC (Bld) 0.8 % Normal . [facility] Comment on above: Performed By: #### C BC, HEPATIC, BMP, LIPASE ####[address] Eosinophils (Bld) [#/Vol] 0.1 10*3/uL Normal 0.0-0.45 [facility] Comment on above: Performed By: #### C BC, HEPATIC, BMP, LIPASE ####[address] Eosinophils/100 WBC (Bld) 1.3 % Normal . [facility] Comment on above: Performed By: #### C BC, HEPATIC, BMP, LIPASE ####[address] Erythrocyte distribution width (RBC) [Ratio] 13.5 % Normal 11.9-15.3 [facility] Comment on above: Performed By: #### C BC, HEPATIC, BMP, LIPASE ####[address] Hematocrit (Bld) [Volume fraction] 41.4 % Normal 34.0-46.4 [facility] Comment on above: Performed By: #### C BC, HEPATIC, BMP, LIPASE ####[address] Hemoglobin (Bld) [Mass/Vol] 14.1 g/dL Normal 11.8-15.4 [facility] Comment on above: Performed By: #### C BC, HEPATIC, BMP, LIPASE ####[address] Lymphocytes (Bld) [#/Vol] 2.4 10*3/uL Normal 1.00-4.8 [facility] Comment on above: Performed By: #### C BC, HEPATIC, BMP, LIPASE ####[address] Lymphocytes/100 WBC (Bld) 31.9 % Normal . [facility] Comment on above: Performed By: #### C BC, HEPATIC, BMP, LIPASE ####[address] MCH (RBC) [Entitic mass] 28.8 pg Normal 24.7-34.3 [facility] Comment on above: Performed By: #### C BC, HEPATIC, BMP, LIPASE ####[address] MCV (RBC) [Entitic vol] 84.3 fL Normal 80-100 [facility] Comment on above: Performed By: #### C BC, HEPATIC, BMP, LIPASE ####[address] Mean Corpuscular HGB Conc 34.1 g/dL Normal 32.0-35.0 [facility] Comment on above: Performed By: #### C BC, HEPATIC, BMP, LIPASE ####[address] Monocytes (Bld) [#/Vol] 0.5 10*3/uL Normal 0.0-0.8 [facility] Comment on above: Performed By: #### C BC, HEPATIC, BMP, LIPASE ####[address] Monocytes/100 WBC (Bld) 17.21 % Normal 0.00-20.00 [facility] Comment on above: Performed By: #### C BC, HEPATIC, BMP, LIPASE ####[address] Monocytes/100 WBC (Bld) 7.3 % Normal . [facility] Comment on above: Performed By: #### C BC, HEPATIC, BMP, LIPASE ####[address] Neutrophils (Bld) [#/Vol] 4.3 10*3/uL Normal 1.8-7.7 [facility] Comment on above: Performed By: #### C BC, HEPATIC, BMP, LIPASE ####[address] Neutrophils/100 WBC (Bld) 58.7 % Normal . [facility] Comment on above: Performed By: #### C BC, HEPATIC, BMP, LIPASE ####[address] NRBC% 0.1 /100{WBC} Normal 0-0.5 [facility] Comment on above: Performed By: #### C BC, HEPATIC, BMP, LIPASE ####[address] Platelet mean volume (Bld) [Entitic vol] 9.2 fL Normal 6.3-10.7 [facility] Comment on above: Performed By: #### C BC, HEPATIC, BMP, LIPASE ####[address] Platelets (Bld) [#/Vol] 222 10*3/uL Normal 150-450 [facility] Comment on above: Performed By: #### C BC, HEPATIC, BMP, LIPASE ####[address] RBC (Bld) [#/Vol] 4.91 10*6/uL Normal 3.60-5.00 [facility] Comment on above: Performed By: #### C BC, HEPATIC, BMP, LIPASE ####[address] WBC (Bld) [#/Vol] 7.4 10*3/uL Normal 3.8-11.6 [facility] Comment on above: Performed By: #### C BC, HEPATIC, BMP, LIPASE ####[facility] [id number] [place] [address] [facility] Creatinine [Mass/volume] in Serum or PlasmaOrdered By: Sarmad Luque on 01-24-2023 Creatinine [Mass/Vol] 0.67 mg/dL 0.60-1.20 [facility] Dipstick and Microscopicon 0 01-24-2023 Appearance (U) Cloudy Critically abnormal Clear [facility] Comment on above: Order Comment: Name Collection Type:: Clean-Voided Midstream Performed By: #### U HCG, ADDONUAPLUS ####[address] [address] [facility] Bacteria,Urine None Seen Normal None Seen [facility] Comment on above: Order Comment: Name Collection Type:: Clean-Voided Midstream Performed By: #### U HCG, ADDONUAPLUS ####[address] [address] [facility] Bilirubin,Urine Negative Normal Negative [facility] Comment on above: Order Comment: Name Collection Type:: Clean-Voided Midstream Performed By: #### U HCG, ADDONUAPLUS ####[address] [address] [facility] Color (U) Yellow Normal Yellow [facility] Comment on above: Order Comment: Name Collection Type:: Clean-Voided Midstream Performed By: #### U HCG, ADDONUAPLUS ####[address] [address] [facility] Glucose Ql (U) Normal Normal Normal [facility] Comment on above: Order Comment: Name Collection Type:: Clean-Voided Midstream Performed By: #### U HCG, ADDONUAPLUS ####[address] [address] [facility] Hyaline Casts,Urine 0-8 Normal 0-8 [facility] Comment on above: Order Comment: Name Collection Type:: Clean-Voided Midstream Performed By: #### U HCG, ADDONUAPLUS ####[address] [address] [facility] Ketones Ql (U) Trace High Negative [facility] Comment on above: Order Comment: Name Collection Type:: Clean-Voided Midstream Performed By: #### U HCG, ADDONUAPLUS ####[place] [id number] [facility] Leukocyte esterase Test strip Ql (U) 1+ High Negative [facility] Comment on above: Order Comment: Name Collection Type:: Clean-Voided Midstream Performed By: #### U HCG, ADDONUAPLUS ####[place] [id number] [facility] Nitrite,Urine Negative Normal Negative [facility] Comment on above: Order Comment: Name Collection Type:: Clean-Voided Midstream Performed By: #### U HCG, ADDONUAPLUS ####[place] [id number] [facility] Occult Blood,Urine 2+ High Negative [facility] Comment on above: Order Comment: Name Collection Type:: Clean-Voided Midstream Performed By: #### U HCG, ADDONUAPLUS ####[place] [id number] [facility] pH (U) 6.0 [pH] Normal 5.0-9.0 [facility] Comment on above: Order Comment: Name Collection Type:: Clean-Voided Midstream Performed By: #### U HCG, ADDONUAPLUS ####[address] [address] [facility] Protein,Urine Trace High Negative [facility] Comment on above: Order Comment: Name Collection Type:: Clean-Voided Midstream Performed By: #### U HCG, ADDONUAPLUS ####[address] [address] [facility] RBC,Urine 20-49 High 0-4 [facility] Comment on above: Order Comment: Name Collection Type:: Clean-Voided Midstream Performed By: #### U HCG, ADDONUAPLUS ####[place] [id number] [facility] Specificy [place],Urine 1.022 Normal 1.001-1.030 [facility] Comment on above: Order Comment: Name Collection Type:: Clean-Voided Midstream Performed By: #### U HCG, ADDONUAPLUS ####[address] Squamous Epithelial Cell,Urine 5-9 High 0-2 [facility] Comment on above: Order Comment: Name Collection Type:: Clean-Voided Midstream Performed By: #### U HCG, ADDONUAPLUS ####[address] Urobilinogen,Urine Normal Normal Normal [facility] Comment on above: Order Comment: Name Collection Type:: Clean-Voided Midstream Performed By: #### U HCG, ADDONUAPLUS ####[address] WBC,Urine 1-2 Normal 0-4 [facility] Comment on above: Order Comment: Name Collection Type:: Clean-Voided Midstream Performed By: #### U HCG, ADDONUAPLUS ####[address] Eosinophils Auto (Bld) [#/Vo l]Ordered By: Sarmad Luque on 01-24-2023 Eosinophils (Bld) [#/Vol] 0.1 10*3/uL 0.0-0.45 [facility] Eosinophils/100 WBC Auto (Bl d)Ordered By: Sarmad Luque on 01-24-2023 Eosinophils/100 WBC (Bld) 1.3 % . [facility] Erythrocyte distribution wid th Auto (RBC) [Ratio]Ordered By: Sarmad Luque on 01-24-2023 Erythrocyte distribution width (RBC) [Ratio] 13.5 % 11.9-15.3 [facility] Globulin Calc (S) [Mass/Vol] Ordered By: Sarmad Luque on 01-24-2023 Globulin (S) [Mass/Vol] 2.7 g/dL [facility] Glucose [Mass/volume] in Ser um or PlasmaOrdered By: Sarmad Luque on 01-24-2023 Glucose [Mass/Vol] 89 mg/dL 70-100 [facility] Comment on above: ADA recommended refe rence rangeRandom Glucose Reference Range is dependent on time and content of last meal. Glucose of more than 200 mg/dL in a nonstressed, ambulatory subject supports the diagnosis of Diabetes Mellitus. HCG ( test) IAshane d Ql (U)Ordered By: Sarmad Luque on 01-24-2023 HCG ( test) Ql (U) Positive [facility] HCG,Quantitativeon 3 HCG,Quantitative 120.64 m[iU]/mL Normal [facility] Comment on above: Result Comment: Appr oximate Approximate hCG Gestational Age Range (mIU/ml) (weeks) 0.2-1 5-50 1-2 50-500 2-3 100-5,000 3-4 500-10,000 4-5 1,000-50,000 5-6 10,000-100,000 6-8 15,000-200,000 8-12 10,000-100,000 PERFORMED BY: [facility] [address] [place] [address] PATHOLOGIST BREADING MACHINE TENDER JERRY CASTRO M.D. Performed By: #### H CGQNT ####[place] [id number] [place] [id number] [facility] HCG,Urineon 01-24-2023 Beta HCG ( test) Ql (U) Positive [facility] Comment on above: Order Comment: Name Collection Type:: Clean-Voided Midstream Result Comment: PERF ORMED BY: [facility] [address] [place] [id number] PATHOLOGIST BREADING MACHINE TENDER JERRY CASTRO M.D. Performed By: #### U HCG, ADDONUAPLUS ####[place] [id number] [place] [id number] [facility] Hematocrit Auto (Bld) [Volum e fraction]Ordered By: Sarmad Luque on 01-24-2023 Hematocrit (Bld) [Volume fraction] 41.4 % 34.0-46.4 [facility] Hemoglobin [Mass/volume] in BloodOrdered By: Sarmad Luque on 01-24-2023 Hemoglobin (Bld) [Mass/Vol] 14.1 g/dL 11.8-15.4 [facility] Hepatic Panelon 01-24-2023 Albumin [Mass/Vol] 4.7 g/dL Normal 3.5-5.7 [facility] Comment on above: Performed By: #### C BC, HEPATIC, BMP, LIPASE ####[facility] [id number] [place] [id number] [facility] Albumin/Globulin [Mass ratio] 1.7 {ratio} Normal [facility] Comment on above: Performed By: #### C BC, HEPATIC, BMP, LIPASE ####[facility] [address] [place] [address] [facility] ALP [Catalytic activity/Vol] 71 U/L Normal 34-104 [facility] Comment on above: Performed By: #### C BC, HEPATIC, BMP, LIPASE ####[place] [address] [place] [id number] [facility] ALT [Catalytic activity/Vol] 20 U/L Normal 7-52 [facility] Comment on above: Performed By: #### C BC, HEPATIC, BMP, LIPASE ####[place] [address] [place] [id number] [facility] AST [Catalytic activity/Vol] 14 U/L Normal 13-39 [facility] Comment on above: Performed By: #### C BC, HEPATIC, BMP, LIPASE ####[facility] [address] [place] [id number] [facility] Bilirubin [Mass/Vol] 0.9 mg/dL Normal 0.3-1.0 [facility] Comment on above: Performed By: #### C BC, HEPATIC, BMP, LIPASE ####[place] [id number] [facility] Bilirubin,Indirect 0.7 mg/dL Normal [facility] Comment on above: Performed By: #### C BC, HEPATIC, BMP, LIPASE ####[place] [address] [place] [id number] [facility] Bilirubin.indirect [Mass/Vol] 0.20 mg/dL High 0.03-0.18 [facility] Comment on above: Performed By: #### C BC, HEPATIC, BMP, LIPASE ####[facility] [place] [address] [facility] Globulin (S) [Mass/Vol] 2.7 g/dL Normal [facility] Comment on above: Performed By: #### C BC, HEPATIC, BMP, LIPASE ####[facility] Protein [Mass/Vol] 7.4 g/dL Normal 6.4-8.9 [facility] Comment on above: Performed By: #### C BC, HEPATIC, BMP, LIPASE ####[place] [address] [place] [id number] [facility] Ketones Auto test strip (U) [Mass/Vol]Ordered By: Sarmad Luque on 01-24-2023 Ketones (U) [Mass/Vol] Trace Negative [facility] - UrinalysisOrder ed By: Sarmad Luque on 01-24-2023 Hyaline casts LM Ql (Urine sed) 0-8 [LPF] 0-8 [facility] Leukocytes [#/volume] correc mague for nucleated erythrocytes in Blood by Automated counOrdered By: Sarmad Luque on 01-24-2023 WBC corrected for nucl RBC Auto (Bld) [#/Vol] 7.4 10*3/uL 3.8-11.6 [facility] Lipaseon 01-24-2023 Lipase [Catalytic activity/Vol] 47.0 U/L Normal 11.0-82.0 [facility] Comment on above: Result Comment: PERF ORMED BY: [facility] [address] [place] [id number] PATHOLOGIST BREADING MACHINE TENDER JERRY CASTRO M.D. Performed By: #### C BC, HEPATIC, BMP, LIPASE ####[place] [address] [place] [phone] [facility] Lipase [Enzymatic activity/v olume] in Serum or PlasmaOrdered By: Sarmad Luque on 01-24-2023 Lipase [Catalytic activity/Vol] 47.0 U/L 11.0-82.0 [facility] Lymphocytes Auto (Bld) [#/Vo l]Ordered By: Sarmad Luque on 01-24-2023 Lymphocytes (Bld) [#/Vol] 2.4 10*3/uL 1.00-4.8 [facility] Lymphocytes/100 WBC Auto (Bl d)Ordered By: Sarmad Luque on 01-24-2023 Lymphocytes/100 WBC (Bld) 31.9 % . [facility] MCH Auto (RBC) [Entitic mass ]Ordered By: Sarmad Luque on 01-24-2023 MCH (RBC) [Entitic mass] 28.8 pg 24.7-34.3 [facility] MCHC Auto (RBC) [Mass/Vol]Or dered By: Sarmad Luque on 01-24-2023 MCHC (RBC) [Mass/Vol] 34.1 g/dL 32.0-35.0 [facility] MCV Auto (RBC) [Entitic vol] Ordered By: Sarmad Luque on 01-24-2023 MCV (RBC) [Entitic vol] 84.3 fL 80-100 [facility] Monocyte distribution width [Entitic volume] in Blood by AutomatedOrdered By: Sarmad Luque on 01-24-2023 Monocyte distribution width Auto (Bld) [Entitic vol] 17.21 % 0.00-20.00 [facility] Monocytes Auto (Bld) [#/Vol] Ordered By: Sarmad Luque on 01-24-2023 Monocytes (Bld) [#/Vol] 0.5 10*3/uL 0.0-0.8 [facility] Monocytes/100 WBC Auto (Bld) Ordered By: Sarmad Luque on 01-24-2023 Monocytes/100 WBC (Bld) 7.3 % . [facility] Neutrophils Auto (Bld) [#/Vo l]Ordered By: Sarmad Luque on 01-24-2023 Neutrophils (Bld) [#/Vol] 4.3 10*3/uL 1.8-7.7 [facility] Neutrophils/100 WBC Auto (Bl d)Ordered By: Sarmad Luque on 01-24-2023 Neutrophils/100 WBC (Bld) 58.7 % . [facility] Nitrite Test strip Ql (U)Ord ered By: Sarmad Luque on 01-24-2023 Nitrite Ql (U) Negative Negative [facility] No Panel InformationOrdered By: Sarmad Luque on 01-24-2023 Estimated GFR (CKD-EPI) > 60.0 mL/Min [facility] Creatinine Clearance (Chem 103.40 [facility] Nucleated erythrocytes [Pres ence] in Blood by Automated countOrdered By: Sarmad Luque on 01-24-2023 Nucleated RBC Auto Ql (Bld) 0.1 /100{WBC} 0-0.5 [facility] Platelet mean volume Auto (B ld) [Entitic vol]Ordered By: Sarmad Luque on 01-24-2023 Platelet mean volume (Bld) [Entitic vol] 9.2 fL 6.3-10.7 [facility] Platelets Auto (Bld) [#/Vol] Ordered By: Sarmad Luque on 01-24-2023 Platelets (Bld) [#/Vol] 222 10*3/uL 150-450 [facility] Potassium [Moles/volume] in Serum or PlasmaOrdered By: Sarmad Luque on 01-24-2023 Potassium [Moles/Vol] 3.4 mmol/L 3.5-5.1 [facility] Protein Auto test strip (U) [Mass/Vol]Ordered By: Sarmad Luque on 01-24-2023 Protein (U) [Mass/Vol] Trace mg/dL Negative [facility] Protein [Mass/volume] in Ser um or PlasmaOrdered By: Sarmad Luque on 01-24-2023 Protein [Mass/Vol] 7.4 g/dL 6.4-8.9 [facility] RBC Auto (Bld) [#/Vol]Ordere d By: Sarmad Luque on 01-24-2023 RBC (Bld) [#/Vol] 4.91 10*6/uL 3.60-5.00 [facility] Serum or plasma albumin/glob ulin mass ratioOrdered By: Sarmad Luque on 01-24-2023 Albumin/Globulin [Mass ratio] 1.7 {ratio} [facility] Serum or plasma anion gap de terminationOrdered By: Sarmad Luque on 01-24-2023 Anion gap [Moles/Vol] 11.4 mmol/L 6.0-15.0 [facility] Serum or plasma non-glucuron idated bilirubin measurement (mass/volume)Ordered By: Sarmad Luque on 01-24-2023 Bilirubin.indirect [Mass/Vol] 0.7 mg/dL [facility] Sodium [Moles/volume] in Ser um or PlasmaOrdered By: Sarmad Luque on 01-24-2023 Sodium [Moles/Vol] 138 mmol/L 136-145 [facility] Specific gravity Auto test s trip (U) [Rel density]Ordered By: Sarmad Luque on 01-24-2023 Specific gravity (U) [Rel density] 1.022 1.001-1.030 [facility] Squamous epithelial cells de tection in urine sediment by light microscopyOrdered By: Sarmad Luque on 01-24-2023 Epithelial cells.squamous LM Ql (Urine sed) 5-9 [HPF] 0-2 [facility] US OB transvaginalon 023 US OB transvaginal [facility] [place] [place] [address] Ultrasound Report Signed Patient: Elyssa Smith MR#: [id number] : 1990 Acct:[id number] Age/Sex: 32 / F ADM Date: 01/24/23 Loc: ER Room: Type: [facility] ER Attending Dr: Ordering Provider: Sarmad Luque DO Date of Service: 01/24/23 US/US OB <= 14 weeks fetus: Abdominal Pain ([id number]) US/US OB transvaginal: PAIN Copies to: Sarmad [...] Carrillo Ziegler M.D.01/24/2023 2:06 PM Dictation Location: [place] [address] Tech: Ashely Sharmila Transcribed By: SILVINA 01/24/23 1406 Dictated By: Carrillo Ziegler II, MD 01/24/23 1401 Signed By: 01/24/23 1406 Normal [facility] US renal BIon 01-24-2023 US renal BI [facility] [place] [address] Ultrasound Report Signed Patient: Elyssa Smith MR#: [id number] : 1990 Acct:[id number] Age/Sex: 32 / F ADM Date: 01/24/23 Loc: ER Room: Type: [facility] ER Attending Dr: Ordering Provider: Sarmad [...] Carrillo Ziegler M.D.01/24/2023 2:12 PM Dictation Location: [place] [address] Tech: Ashely Doll Transcribed By: SILVINA 01/24/23 1412 Dictated By: Carrillo Ziegler II, MD 01/24/23 1410 Signed By: 01/24/23 1412 Normal [facility] Urea nitrogen [Mass/volume] in Serum or PlasmaOrdered By: Sarmad Luque on 01-24-2023 Urea nitrogen [Mass/Vol] 6 mg/dL 7 [facility] Urine bacteria detection by automated methodOrdered By: Sarmad Luque on 01-24-2023 Bacteria Auto Ql (U) None seen None Seen [facility] Urine clarity by refractomet ry automatedOrdered By: Sarmad Luque on 01-24-2023 Clarity Refractometry automated (U) Cloudy Clear [facility] Urine glucose measurement by automated test strip (mass/volume)Ordered By: Sarmad Luque on 01-24-2023 Glucose Auto test strip (U) [Mass/Vol] Normal mg/dL Normal [facility] Urine hemoglobin detection b y automated test stripOrdered By: Sarmad Luque on 01-24-2023 Hemoglobin Auto test strip Ql (U) 2+ Negative [facility] Urine leukocyte esterase det ection by automated test stripOrdered By: Sarmad Luqeu on 01-24-2023 Leukocyte esterase Auto test strip Ql (U) 1+ Negative [facility] Urobilinogen Auto test strip (U) [Mass/Vol]Ordered By: Sarmad Luque on 01-24-2023 Urobilinogen (U) [Mass/Vol] Normal mg/dL Normal [facility] WBC Auto (Bld) [#/Vol]Ordere d By: Sarmadsamantha Coughlinzi on 01-24-2023 WBC (Bld) [#/Vol] 7.4 10*3/uL 3.8-11.6 [facility] pH Auto test strip (U)Ordere d By: Sarmad Ene on 01-24-2023 pH (U) 6.0 [pH] 5.0-9.0 [facility] ALFRED with Reflexon 10-27-2022 ALFRED with Reflex Negative Normal Negative [facility] Comment on above: Result Comment: Perf ormed at: CB - [facility] [address] [id number] Internet Systems Administrator: Ismael Suh PhD, Phone: [phone] PERFORMED BY: [facility] [address] [place] [address] PATHOLOGIST BREADING MACHINE TENDER JERRY CASTRO M.D. Performed By: #### L IPID, [id number], TSH3 wRFLX, CBC, CMP ####[facility] [id number]#### RA, ALFRED CHOICE ####[facility] , Alanine aminotransferase [En zymatic activity/volume] in Serum or PlasmaOrdered By: Page Magaña on 10-27-2022 ALT [Catalytic activity/Vol] 30 U/L 7-52 [facility] Albumin [Mass/volume] in Ser um or Plasma by Bromocresol green (BCG) dye binding methoOrdered By: Page Magaña on 10-27-2022 Albumin BCG dye [Mass/Vol] 4.2 g/dL 3.5-5.7 [facility] Alkaline phosphatase [Enzyma tic activity/volume] in Serum or PlasmaOrdered By: Page Magaña on 10-27-2022 ALP [Catalytic activity/Vol] 86 U/L 34-104 [facility] Aspartate aminotransferase [ Enzymatic activity/volume] in Serum or PlasmaOrdered By: Page Magaña on 10-27-2022 AST [Catalytic activity/Vol] 17 U/L 13-39 [facility] Basophils Auto (Bld) [#/Vol] Ordered By: Page Magaña on 10-27-2022 Basophils (Bld) [#/Vol] 0.1 10*3/uL 0.0-0.2 [facility] Basophils/100 WBC Auto (Bld) Ordered By: Page Magaña on 10-27-2022 Basophils/100 WBC (Bld) 0.6 % . [facility] Bilirubin.total [Mass/volume ] in Serum or PlasmaOrdered By: Page Magaña on 10-27-2022 Bilirubin [Mass/Vol] 0.6 mg/dL 0.3-1.0 [facility] Calcium [Mass/volume] in Ser um or PlasmaOrdered By: Page Magaña on 10-27-2022 Calcium [Mass/Vol] 9.0 mg/dL 8.6-10.3 [facility] Carbon dioxide, total [Moles /volume] in Serum or PlasmaOrdered By: Page Magaña on 10-27-2022 CO2 [Moles/Vol] 24.7 mmol/L 21.0-31.0 [facility] Chloride [Moles/volume] in S gris or PlasmaOrdered By: Page Magaña on 10-27-2022 Chloride [Moles/Vol] 107 mmol/L 98-107 [facility] Cholesterol [Mass/volume] in Serum or PlasmaOrdered By: Page Magaña on 10-27-2022 Cholesterol [Mass/Vol] 209 mg/dL 140-200 [facility] Comment on above: Chol less than 200 m g/dl low riskChol 201-239 mg/dl borderline riskChol 240 mg/dl and greater high risk Cholesterol in LDL Calc [Mas s/Vol]Ordered By: Page Magaña on 10-27-2022 Cholesterol in LDL [Mass/Vol] 155 mg/dL 0-100 [facility] Comment on above: LDL ATP III CLASSIFI CATIONLDL less than 100 mg/dL OptimalLDL 100-129 mg/dL Near or above optimalLDL 130-159 mg/dL Borderline highLDL 160-189 mg/dL HighLDL greater than 189 mg/dL Very high Cholesterol in VLDL Calc [Ma ss/Vol]Ordered By: Page Magaña on 10-27-2022 Cholesterol in VLDL [Mass/Vol] 11 mg/dL [facility] Complete Blood Count Auto Di ffon 10-27-2022 Basophils (Bld) [#/Vol] 0.1 10*3/uL Normal 0.0-0.2 [facility] Comment on above: Result Comment: PERF ORMED BY: [place] [address] PATHOLOGIST BREADING MACHINE TENDER JERRY CASTRO M.D. Performed By: #### L IPID, [id number], TSH3 wRFLX, CBC, CMP #### [address] #### RA, ALFRED CHOICE #### [facility] , Basophils/100 WBC (Bld) 0.6 % Normal . [facility] Comment on above: Performed By: #### L IPID, [id number], TSH3 wRFLX, CBC, CMP #### [facility] [address] [place] [address] [place] #### RA, ALFRED CHOICE #### [facility] , Eosinophils (Bld) [#/Vol] 0.1 10*3/uL Normal 0.0-0.45 [facility] Comment on above: Performed By: #### L IPID, [id number], TSH3 wRFLX, CBC, CMP #### [facility] [address] [place] [address] [place] #### RA, ALFRED CHOICE #### [facility] , Eosinophils/100 WBC (Bld) 1.6 % Normal . [facility] Comment on above: Performed By: #### L IPID, [id number], TSH3 wRFLX, CBC, CMP #### [facility] [address] [place] [address] [place] #### RA, ALFRED CHOICE #### [facility] , Erythrocyte distribution width (RBC) [Ratio] 14.4 % Normal 11.9-15.3 [facility] Comment on above: Performed By: #### L IPID, [id number], TSH3 wRFLX, CBC, CMP #### [place] [address] [place] #### RA, ALFRED CHOICE #### [facility] , Hematocrit (Bld) [Volume fraction] 40.5 % Normal 34.0-46.4 [facility] Comment on above: Performed By: #### L IPID, [id number], TSH3 wRFLX, CBC, CMP #### [place] [address] [place] #### RA, ALFRED CHOICE #### [facility] , Hemoglobin (Bld) [Mass/Vol] 13.5 g/dL Normal 11.8-15.4 [facility] Comment on above: Performed By: #### L IPID, [id number], TSH3 wRFLX, CBC, CMP #### [place] [address] [place] #### RA, ALFRED CHOICE #### [facility] , Lymphocytes (Bld) [#/Vol] 2.8 10*3/uL Normal 1.00-4.8 [facility] Comment on above: Performed By: #### L IPID, [id number], TSH3 wRFLX, CBC, CMP #### [place] [address] [place] #### RA, ALFRED CHOICE #### [facility] , Lymphocytes/100 WBC (Bld) 30.3 % Normal . [facility] Comment on above: Performed By: #### L IPID, [id number], TSH3 wRFLX, CBC, CMP #### [place] [address] [place] #### RA, ALFRED CHOICE #### [facility] , MCH (RBC) [Entitic mass] 28.1 pg Normal 24.7-34.3 [facility] Comment on above: Performed By: #### L IPID, [id number], TSH3 wRFLX, CBC, CMP #### [facility] [address] [place] [address] [place] #### RA, ALFRED CHOICE #### [facility] , MCV (RBC) [Entitic vol] 84.6 fL Normal 80-100 [facility] Comment on above: Performed By: #### L IPID, [id number], TSH3 wRFLX, CBC, CMP #### [place] [address] [place] #### RA, ALFRED CHOICE #### [facility] , Mean Corpuscular HGB Conc 33.3 g/dL Normal 32.0-35.0 [facility] Comment on above: Performed By: #### L IPID, [id number], TSH3 wRFLX, CBC, CMP #### [place] [address] [place] #### RA, ALFRED CHOICE #### [facility] , Monocytes (Bld) [#/Vol] 0.6 10*3/uL Normal 0.0-0.8 [facility] Comment on above: Performed By: #### L IPID, [id number], TSH3 wRFLX, CBC, CMP #### [facility] [address] [place] [address] [place] #### RA, ALFRED CHOICE #### [facility] , Monocytes/100 WBC (Bld) 6.7 % Normal . [facility] Comment on above: Performed By: #### L IPID, [id number], TSH3 wRFLX, CBC, CMP #### [facility] [address] [place] [address] [place] #### RA, ALFRED CHOICE #### [facility] , Neutrophils (Bld) [#/Vol] 5.5 10*3/uL Normal 1.8-7.7 [facility] Comment on above: Performed By: #### L IPID, [id number], TSH3 wRFLX, CBC, CMP #### [facility] [address] [place] [address] [place] #### RA, ALFRED CHOICE #### [facility] , Neutrophils/100 WBC (Bld) 60.8 % Normal . [facility] Comment on above: Performed By: #### L IPID, [id number], TSH3 wRFLX, CBC, CMP #### [facility] [address] [place] [address] [place] #### RA, ALFRED CHOICE #### [facility] , NRBC% 0.3 /100{WBC} Normal 0-0.5 [facility] Comment on above: Performed By: #### L IPID, [id number], TSH3 wRFLX, CBC, CMP #### [facility] [address] [place] [address] [place] #### RA, ALFRED CHOICE #### [facility] , Platelet mean volume (Bld) [Entitic vol] 8.9 fL Normal 6.3-10.7 [facility] Comment on above: Performed By: #### L IPID, [id number], TSH3 wRFLX, CBC, CMP #### [facility] [address] [place] [address] [place] #### RA, ALFRED CHOICE #### [facility] , Platelets (Bld) [#/Vol] 246 10*3/uL Normal 150-450 [facility] Comment on above: Performed By: #### L IPID, [id number], TSH3 wRFLX, CBC, CMP #### [facility] [address] [place] [address] [place] #### RA, ALFRED CHOICE #### [facility] , RBC (Bld) [#/Vol] 4.79 10*6/uL Normal 3.60-5.00 [facility] Comment on above: Performed By: #### L IPID, [id number], TSH3 wRFLX, CBC, CMP #### [facility] [address] [place] [address] [place] #### RA, ALFRED CHOICE #### [facility] , WBC (Bld) [#/Vol] 9.1 10*3/uL Normal 3.8-11.6 [facility] Comment on above: Performed By: #### L IPID, [id number], TSH3 wRFLX, CBC, CMP #### [facility] [address] [place] [address] [place] #### RA, ALFRED CHOICE #### [facility] , Comprehensive Metabolic Pane mauricio 10-27-2022 Albumin [Mass/Vol] 4.2 g/dL Normal 3.5-5.7 [facility] Comment on above: Order Comment: PT IS FASTING Performed By: #### L IPID, [id number], TSH3 wRFLX, CBC, CMP #### [facility] [address] [place] [address] [place] #### RA, ALFRED CHOICE #### [facility] , Albumin/Globulin [Mass ratio] 1.8 {ratio} Normal [facility] Comment on above: Order Comment: PT IS FASTING Performed By: #### L IPID, [id number], TSH3 wRFLX, CBC, CMP #### [facility] [address] [place] [address] [place] #### RA, ALFRED CHOICE #### [facility] , ALP [Catalytic activity/Vol] 86 U/L Normal 34-104 [facility] Comment on above: Order Comment: PT IS FASTING Performed By: #### L IPID, [id number], TSH3 wRFLX, CBC, CMP #### [facility] [address] [place] [address] [place] #### RA, ALFRED CHOICE #### [facility] , ALT [Catalytic activity/Vol] 30 U/L Normal 7-52 [facility] Comment on above: Order Comment: PT IS FASTING Performed By: #### L IPID, [id number], TSH3 wRFLX, CBC, CMP #### [facility] [address] [place] [address] [place] #### RA, ALFRED CHOICE #### [facility] , Anion gap [Moles/Vol] 10.6 mmol/L Normal 6.0-15.0 [facility] Comment on above: Order Comment: PT IS FASTING Performed By: #### L IPID, [id number], TSH3 wRFLX, CBC, CMP #### [facility] [address] [place] [address] [place] #### RA, ALFRED CHOICE #### [facility] , AST [Catalytic activity/Vol] 17 U/L Normal 13-39 [facility] Comment on above: Order Comment: PT IS FASTING Performed By: #### L IPID, [id number], TSH3 wRFLX, CBC, CMP #### [place] [address] [place] #### RA, ALFRED CHOICE #### [facility] , Bilirubin [Mass/Vol] 0.6 mg/dL Normal 0.3-1.0 [facility] Comment on above: Order Comment: PT IS FASTING Performed By: #### L IPID, [id number], TSH3 wRFLX, CBC, CMP #### [facility] [address] [place] [address] [place] #### RA, ALFRED CHOICE #### [facility] , Calcium [Mass/Vol] 9.0 mg/dL Normal 8.6-10.3 [facility] Comment on above: Order Comment: PT IS FASTING Performed By: #### L IPID, [id number], TSH3 wRFLX, CBC, CMP #### [facility] [address] [place] [address] [place] #### RA, ALFRED CHOICE #### [facility] , Chloride [Moles/Vol] 107 mmol/L Normal 98-107 [facility] Comment on above: Order Comment: PT IS FASTING Performed By: #### L IPID, [id number], TSH3 wRFLX, CBC, CMP #### [place] [address] [place] #### , ALFRED CHOICE #### [facility] , CO2 [Moles/Vol] 24.7 mmol/L Normal 21.0-31.0 [facility] Comment on above: Order Comment: PT IS FASTING Performed By: #### L IPID, [id number], TSH3 wRFLX, CBC, CMP #### [place] [address] [place] #### , ALFRED CHOICE #### [facility] , Creatinine [Mass/Vol] 0.62 mg/dL Normal 0.60-1.20 [facility] Comment on above: Order Comment: PT IS FASTING Performed By: #### L IPID, [id number], TSH3 wRFLX, CBC, CMP #### [place] [address] [place] #### RA, ALFRED CHOICE #### [facility] , GFR/1.73 sq M.predicted MDRD (S/P/Bld) [Vol rate/Area] mL/min/{1.73_m2} [facility] Comment on above: Order Comment: PT IS FASTING Performed By: #### L IPID, [id number], TSH3 wRFLX, CBC, CMP #### [facility] [address] [place] [address] [place] #### RA, ALFRED CHOICE #### [facility] , Globulin (S) [Mass/Vol] 2.3 g/dL Normal [facility] Comment on above: Order Comment: PT IS FASTING Performed By: #### L IPID, [id number], TSH3 wRFLX, CBC, CMP #### [place] [address] [place] #### RA ALFRED CHOICE #### [facility] , Glucose [Mass/Vol] 93 mg/dL Normal 70-100 [facility] Comment on above: Order Comment: PT IS FASTING Result Comment: [facility] Glucose Reference Range is dependent on time and content of last meal. Glucose of more than 200 mg/dL in a nonstressed, ambulatory subject supports the diagnosis of Diabetes Mellitus. ADA recommended reference range Performed By: #### L IPID, [id number], TSH3 wRFLX, CBC, CMP #### [place] [address] [place] #### RA ALFRED CHOICE #### [facility] , Potassium [Moles/Vol] 4.3 mmol/L Normal 3.5-5.1 [facility] Comment on above: Order Comment: PT IS FASTING Performed By: #### L IPID, [id number], TSH3 wRFLX, CBC, CMP #### [place] [address] [place] #### , ALFRED CHOICE #### [facility] , Protein [Mass/Vol] 6.5 g/dL Normal 6.4-8.9 [facility] Comment on above: Order Comment: PT IS FASTING Performed By: #### L IPID, [id number], TSH3 wRFLX, CBC, CMP #### [facility] [address] [place] [address] [place] #### , ALFRED CHOICE #### [facility] , Sodium [Moles/Vol] 138 mmol/L Normal 136-145 [facility] Comment on above: Order Comment: PT IS FASTING Performed By: #### L IPID, [id number], TSH3 wRFLX, CBC, CMP #### [place] [address] [place] #### RA, ALFRED CHOICE #### [facility] , Urea nitrogen [Mass/Vol] 12 mg/dL Normal 7-25 [facility] Comment on above: Order Comment: PT IS FASTING Performed By: #### L IPID, [id number], TSH3 wRFLX, CBC, CMP #### [facility] [address] #### RA, ALFRED CHOICE #### [facility] , Creatinine [Mass/volume] in Serum or PlasmaOrdered By: Page Magaña on 10-27-2022 Creatinine [Mass/Vol] 0.62 mg/dL 0.60-1.20 [facility] Eosinophils Auto (Bld) [#/Vo l]Ordered By: Page Magaña on 10-27-2022 Eosinophils (Bld) [#/Vol] 0.1 10*3/uL 0.0-0.45 [facility] Eosinophils/100 WBC Auto (Bl d)Ordered By: Page Magaña on 10-27-2022 Eosinophils/100 WBC (Bld) 1.6 % . [facility] Erythrocyte distribution wid th Auto (RBC) [Ratio]Ordered By: Page Magaña on 10-27-2022 Erythrocyte distribution width (RBC) [Ratio] 14.4 % 11.9-15.3 [facility] Globulin Calc (S) [Mass/Vol] Ordered By: Page Magaña on 10-27-2022 Globulin (S) [Mass/Vol] 2.3 g/dL [facility] Glucose [Mass/volume] in Ser um or PlasmaOrdered By: Page Magaña on 10-27-2022 Glucose [Mass/Vol] 93 mg/dL 70-100 [facility] Comment on above: ADA recommended refe rence rangeRandom Glucose Reference Range is dependent on time and content of last meal. Glucose of more than 200 mg/dL in a nonstressed, ambulatory subject supports the diagnosis of Diabetes Mellitus. Hematocrit Auto (Bld) [Volum e fraction]Ordered By: Page Magaña on 10-27-2022 Hematocrit (Bld) [Volume fraction] 40.5 % 34.0-46.4 [facility] Hemoglobin [Mass/volume] in BloodOrdered By: Page Magaña on 10-27-2022 Hemoglobin (Bld) [Mass/Vol] 13.5 g/dL 11.8-15.4 [facility] Leukocytes [#/volume] correc mague for nucleated erythrocytes in Blood by Automated counOrdered By: Page Magaña on 10-27-2022 WBC corrected for nucl RBC Auto (Bld) [#/Vol] 9.1 10*3/uL 3.8-11.6 [facility] Lipid Panelon 10-27-2022 Cholesterol [Mass/Vol] 209 mg/dL High 140-200 [facility] Comment on above: Order Comment: PT IS FASTING Result Comment: Chol less than 200 mg/dl low risk Chol 201-239 mg/dl borderline risk Chol 240 mg/dl and greater high risk Performed By: #### L IPID, [id number], TSH3 wRFLX, CBC, CMP #### [address] #### RA, ALFRED CHOICE #### [facility] , Cholesterol in HDL [Mass/Vol] 43 mg/dL Normal 35-85 [facility] Comment on above: Order Comment: PT IS FASTING Result Comment: HDL CHOL ATP-III CLASSIFICATION Cardiovascular Risk HDL > or equal to 60 mg/dL LOW HDL < 40 mg/dL HIGH Performed By: #### L IPID, [id number], TSH3 wRFLX, CBC, CMP #### [place] [address] [place] #### RA, ALFRED CHOICE #### [facility] , Cholesterol.total/Poonam sterol in HDL [Mass ratio] 4.9 {ratio} Normal <5.0 [facility] Comment on above: Order Comment: PT IS FASTING Performed By: #### L IPID, [id number], TSH3 wRFLX, CBC, CMP #### [facility] [address] [place] [address] [place] #### RA, ALFERD CHOICE #### [facility] , LDL Cholesterol,Calculated 155 mg/dL High 0-100 [facility] Comment on above: Order Comment: PT IS FASTING Result Comment: LDL ATP III CLASSIFICATION LDL less than 100 mg/dL Optimal LDL 100-129 mg/dL Near or above optimal LDL 130-159 mg/dL Borderline high LDL 160-189 mg/dL High LDL greater than 189 mg/dL Very high Performed By: #### L IPID, [id number], TSH3 wRFLX, CBC, CMP #### [facility] [address] [place] [address] [place] #### RA, ALFRED CHOICE #### [facility] , Triglyceride w/Reflex 55 mg/dL Normal 0-149 [facility] Comment on above: Order Comment: PT IS FASTING Result Comment: TRIG ATP III CLASSIFICATION TRIG less than 150 mg/dL Normal TRIG 150-199 mg/dL Borderline high TRIG 200-500 mg/dL High TRIG greater than 500 mg/dL Very high Standard traceable to the Center for Disease Conrtrol and Prevention (CDC) test method. Performed By: #### L IPID, [id number], TSH3 wRFLX, CBC, CMP #### [facility] [address] [place] [address] [place] #### , ALFRED CHOICE #### [facility] , VLDL CHOLESTEROL 11 mg/dL Normal [facility] Comment on above: Order Comment: PT IS FASTING Performed By: #### L IPID, [id number], TSH3 wRFLX, CBC, CMP #### [place] [address] [place] #### RA, ALFRED CHOICE #### [facility] , Lymphocytes Auto (Bld) [#/Vo l]Ordered By: Page Magaña on 10-27-2022 Lymphocytes (Bld) [#/Vol] 2.8 10*3/uL 1.00-4.8 [facility] Lymphocytes/100 WBC Auto (Bl d)Ordered By: Page Magaña on 10-27-2022 Lymphocytes/100 WBC (Bld) 30.3 % . [facility] MCH Auto (RBC) [Entitic mass ]Ordered By: Page Magaña on 10-27-2022 MCH (RBC) [Entitic mass] 28.1 pg 24.7-34.3 [facility] MCHC Auto (RBC) [Mass/Vol]Or dered By: Page Magaña on 10-27-2022 MCHC (RBC) [Mass/Vol] 33.3 g/dL 32.0-35.0 [facility] MCV Auto (RBC) [Entitic vol] Ordered By: Page Magaña on 10-27-2022 MCV (RBC) [Entitic vol] 84.6 fL 80-100 [facility] Monocytes Auto (Bld) [#/Vol] Ordered By: Page Magaña on 10-27-2022 Monocytes (Bld) [#/Vol] 0.6 10*3/uL 0.0-0.8 [facility] Monocytes/100 WBC Auto (Bld) Ordered By: Page Magaña on 10-27-2022 Monocytes/100 WBC (Bld) 6.7 % . [facility] Neutrophils Auto (Bld) [#/Vo l]Ordered By: Page Magaña on 10-27-2022 Neutrophils (Bld) [#/Vol] 5.5 10*3/uL 1.8-7.7 [facility] Neutrophils/100 WBC Auto (Bl d)Ordered By: Page Magaña on 10-27-2022 Neutrophils/100 WBC (Bld) 60.8 % . [facility] No Panel InformationOrdered By: Page Magaña on 10-27-2022 Estimated GFR (CKD-EPI) > 60.0 mL/Min [facility] Creatinine Clearance (Chem N/A [facility] Nucleated erythrocytes [Pres ence] in Blood by Automated countOrdered By: Page Magaña on 10-27-2022 Nucleated RBC Auto Ql (Bld) 0.3 /100{WBC} 0-0.5 [facility] Platelet mean volume Auto (B ld) [Entitic vol]Ordered By: Page Magaña on 10-27-2022 Platelet mean volume (Bld) [Entitic vol] 8.9 fL 6.3-10.7 [facility] Platelets Auto (Bld) [#/Vol] Ordered By: Page Magaña on 10-27-2022 Platelets (Bld) [#/Vol] 246 10*3/uL 150-450 [facility] Potassium [Moles/volume] in Serum or PlasmaOrdered By: Page Magaña on 10-27-2022 Potassium [Moles/Vol] 4.3 mmol/L 3.5-5.1 [facility] Protein [Mass/volume] in Ser um or PlasmaOrdered By: Page Magaña on 10-27-2022 Protein [Mass/Vol] 6.5 g/dL 6.4-8.9 [facility] RBC Auto (Bld) [#/Vol]Ordere d By: Page Magaña on 10-27-2022 RBC (Bld) [#/Vol] 4.79 10*6/uL 3.60-5.00 [facility] Rheumatoid Factoron 10-28-19 23 Rheumatoid Factor <10.0 Normal <14.0 [facility] Comment on above: Result Comment: Perf ormed at: CB - [facility] [place] [id number] Internet Systems Administrator: Ismael Suh PhD, Phone: [phone] Performed By: #### L IPID, [id number], TSH3 wRFLX, CBC, CMP ####[facility] [address]#### RA, ALFRED CHOICE ####[facility] , Serum or plasma albumin/glob ulin mass ratioOrdered By: Page Magaña on 10-27-2022 Albumin/Globulin [Mass ratio] 1.8 {ratio} [facility] Serum or plasma anion gap de terminationOrdered By: Page Magaña on 10-27-2022 Anion gap [Moles/Vol] 10.6 mmol/L 6.0-15.0 [facility] Serum or plasma high density lipoprotein (HDL) cholesterol measurementOrdered By: Page Magaña on 10-27-2022 Cholesterol in HDL [Mass/Vol] 43 mg/dL 35-85 [facility] Comment on above: HDL CHOL ATP-III CLA SSIFICATION Cardiovascular RiskHDL > or equal to 60 mg/dL LOWHDL < 40 mg/dL HIGH Serum or plasma total choles terol/high density lipoprotein (HDL) cholesterol mass ratOrdered By: Page Magaña on 10-27-2022 Cholesterol.total/Oponam sterol in HDL [Mass ratio] 4.9 {ratio} <5.0 [facility] Sodium [Moles/volume] in Ser um or PlasmaOrdered By: Page Magaña on 10-27-2022 Sodium [Moles/Vol] 138 mmol/L 136-145 [facility] Thyroid Stim Hormone w/Rflxo n 10-27-2022 Thyroid Stim Hormone w/Rflx 0.76 u[iU]/mL Normal 0.45-5.33 [facility] Comment on above: Order Comment: PT IS FASTING Performed By: #### L IPID, [id number], TSH3 wRFLX, CBC, CMP #### [facility] [address] [place] [address] #### RA, ALFRED CHOICE #### [facility] , Thyrotropin [Units/volume] i n Serum or PlasmaOrdered By: Page Magaña on 10-27-2022 TSH Qn 0.76 m[IU]/L 0.45-5.33 [facility] Triglyceride [Mass/volume] i n Serum or PlasmaOrdered By: Page Magaña on 10-27-2022 Triglyceride [Mass/Vol] 55 mg/dL 0-149 [facility] Comment on above: TRIG ATP III CLASSIF ICATIONTRIG less than 150 mg/dL NormalTRIG 150-199 mg/dL Borderline highTRIG 200-500 mg/dL High TRIG greater than 500 mg/dL Very highStandard traceable to the Center for Disease Conrtrol and Prevention (CDC) test method. Urea nitrogen [Mass/volume] in Serum or PlasmaOrdered By: Page Magaña on 10-27-2022 Urea nitrogen [Mass/Vol] 12 mg/dL 7-25 [facility] Vitamin D 25 Hydroxy Totalon 10-27-2022 Vitamin D 25 Hydroxy Total 22.1 ng/mL Low 30-100 [facility] Comment on above: Order Comment: PT IS FASTING Result Comment: HARVINDER MIN D STATUS 25(OH)VITAMIN D RANGE (ng/mL) Deficient <20 Insufficient 20 to <30 Sufficient 30 to 100 Reference: Lino Pena, Gildardo MARTELL, et al. Evaluation,treatment, and prevention of vitamin D deficiency; an Endocrine Society clinical practice guideline. JCEM. 2010; 96(7):1911-. PERFORMED BY: [place] [address] PATHOLOGIST BREADING MACHINE TENDER JERRY CASTRO M.D. Performed By: #### L IPID, [id number], TSH3 wRFLX, CBC, CMP #### [facility] [address] [place] [address] #### RA, ALFRED CHOICE #### [facility] , Vitamin D+Metabolites [Mass/ volume] in Serum or PlasmaOrdered By: Page Magaña on 10-27-2022 Vitamin D+Metabolites [Mass/Vol] 22.1 ng/mL 30-100 [facility] Comment on above: VITAMIN D STATUS 25( OH)VITAMIN D RANGE (ng/mL) Deficient <20 Insufficient 20 to <30Sufficient 30 to 100Reference: Lino Pena, Gildardo MARTELL, et al. Evaluation,treatment, and prevention of vitamin D deficiency; an Endocrine Society clinical practice guideline. JCEM. 2010; 96(7):1911-. WBC Auto (Bld) [#/Vol]Ordere d By: Page Magaña on 10-27-2022 WBC (Bld) [#/Vol] 9.1 10*3/uL 3.8-11.6 [facility] Vital Signs Date Time Vital Sign Value Performing Clinician Facility 06-28-2023 05:30-0500 Body temperature 98.8 [degF] DO Sallie Magaña Work Phone: [facility] 06-28-2023 05:30-0500 Diastolic blood pressure 79 mm[Hg] DO Sallie Magaña Work Phone: [facility] 06-28-2023 05:30-0500 Heart rate 80 /min DO Sallie Magaña Work Phone: [facility] 06-28-2023 05:30-0500 Respiratory rate 20 /min DO Sallie Magaña Work Phone: [facility] 06-28-2023 05:30-0500 SaO2% (BldA) [Mass fraction] 98 % DO Sallie Magaña Work Phone: [facility] 06-28-2023 05:30-0500 Systolic blood pressure 121 mm[Hg] DO Sallie Magaña Work Phone: [phone] [place] [address] 06-26-2023 20:49-0500 Body height 152.4 cm DO Sallie Magaña Work Phone: 4(069)[phone] [place] [address] 06-26-2023 20:49-0500 Body weight 74.38 kg DO Sallie Magaña Work Phone: [phone] [place] [address] 01-24-2023 13:44-0400 Diastolic blood pressure 73 mm[Hg] DO Sallie Magaña Work Phone: [phone] [place] [address] 01-24-2023 13:44-0400 Heart rate 104 /min DO Sallie Magaña Work Phone: [phone] [place] [address] 01-24-2023 13:44-0400 Respiratory rate 16 /min DO Sallie Magaña Work Phone: [facility] 01-24-2023 13:44-0400 SaO2% (BldA) [Mass fraction] 98 % DO Sallie Magaña Work Phone: [facility] 01-24-2023 13:44-0400 Systolic blood pressure 117 mm[Hg] DO Sallie Magaña Work Phone: [phone] [place] [address] 01-24-2023 10:11-0400 Body height 152.4 cm DO Sallie Magaña Work Phone: [facility] 01-24-2023 10:11-0400 Body temperature 98.5 [degF] DO Sallie Magaña Work Phone: [facility] 01-24-2023 10:11-0400 Body weight 67.58 kg DO Sallie Magaña Work Phone: [facility] 11-08-2022 15:30-0400 Body height 147.96 cm Hilario Reynolds Other [employer] Other 11-08-2022 15:30-0400 Body mass index (BMI) [Ratio] 34.23 kg/m2 Hilario Reynolds Other [facility] Other 11-08-2022 15:30-0400 Body weight 74.93 kg Hilario Reynolds Other [facility] Other 11-08-2022 15:30-0400 Diastolic blood pressure 90 mm[Hg] Hilario Reynolds Other [facility] Other 11-08-2022 15:30-0400 Respiratory rate 18 /min Hilario Gail Other [facility] Other 11-08-2022 15:30-0400 SaO2% (BldA) [Mass fraction] 97 % Hilario Gail Other [employer] Other 11-08-2022 15:30-0400 Systolic blood pressure 135 mm[Hg] Hilario Reynolds Other [employer] Other Encounters Encounter Date Encounter Type Care Provider Facility Start: 08-15-2023 End: 08-15-2023 ambulatory Edgar Erwin Facility:[facility] Start: 08-15-2023 End: 08-15-2023 ambulatory DO Sallie Magaña Work Phone: [facility] Work Phone: Start: 08-15-2023 End: 08-15-2023 Patient encounter procedure DO Sallie Owensmelany Work Phone: [facility] [place] Work Phone: Start: 08-04-2023 Telephone encounter Camila Gallego MD Work Phone: [facility]- Medicine at [facility] Start: 08-03-2023 End: 08-03-2023 ambulatory [facility] Start: 08-01-2023 End: 08-01-2023 ambulatory EDGAR MARIAELENA Not Available Start: 07-19-2023 End: 07-19-2023 ambulatory EDGAR MARIAELENA Not Available Start: 07-04-2023 End: 07-04-2023 ambulatory EDGAR MARIAELENA Not Available Start: 06-29-2023 ambulatory Alfredo LANDIN Facility:[facility] Start: 06-27-2023 End: 06-28-2023 ambulatory Alfredo LANDIN Facility:CD:[id number] Start: 06-26-2023 End: 06-28-2023 ambulatory Emerald Martinez Facility:[facility] Start: 06-26-2023 End: 06-28-2023 Evaluation and management of inpatient DO Sallie Aguila Gracielamelany Work Phone: [facility] Labor and Delivery Work Phone: Start: 06-26-2023 End: 06-28-2023 observation encounter DO Sallie Sheehan Gracielamelany Work Phone: [facility] Work Phone: Start: 06-06-2023 End: 06-06-2023 ambulatory Latrice Sepulveda Facility:[facility] Start: 06-06-2023 End: 06-06-2023 Patient encounter procedure DO PagePrabha Owensmelany Work Phone: [facility] [place] Work Phone: Start: 05-29-2023 End: 05-29-2023 ambulatory BRANDON CAMARGO Not Available Start: 05-06-2023 End: 05-06-2023 ambulatory Sallie Magaña Facility:[facility] Start: 05-06-2023 End: 05-06-2023 ambulatory DO Sallie Magaña Work Phone: [facility] Work Phone: Start: 05-06-2023 End: 05-06-2023 Patient encounter procedure DO Sallie Magaña Work Phone: [facility] [place] Work Phone: Start: 01-24-2023 End: 01-24-2023 Emergency department patient visit DO Sallie Magaña Work Phone: [facility]-Emergency Room Work Phone: Start: 12-20-2022 End: 12-21-2022 ambulatory Sallie Owenslynettegeorgie Facility:[facility] Start: 12-20-2022 Registered Recurring DO Sallie Magaña Work Phone: [facility]-Weight Management Work Phone: Start: 11-08-2022 End: 11-08-2022 ambulatory Hilario Reynolds Other [employer] Other Start: 11-08-2022 Nutrition therapy Hilario Reynolds [facility] Start: 10-27-2022 End: 10-27-2022 ambulatory Sallie Magaña Facility:[facility] Start: 10-27-2022 End: 10-27-2022 ambulatory DO Sallie Magaña Work Phone: [facility] Work Phone: Start: 10-27-2022 End: 10-27-2022 Patient encounter procedure DO Sallie Magaña Work Phone: [facility] [place] Work Phone: Procedures Date Procedure Procedure Detail Performing Clinician Start: 06-26-2023 Ultrasonography of b ilateral kidneys DO Sallie Owensmelany Work Phone: Start: 03-10-2023 Microscopic observat ion [Identifier] in Cervix by Cyto stain Camila Gallego MD Work Phone: Plan of Treatment Date Care Activity Detail Author Start: 03-10-2026 Screening for malignant neoplasm of cervix Pap Smear [facility] Start: 06-06-2024 Tobacco Screening Tobacco Screening [facility] Start: 06-05-2024 Adult BMI Screening Adult BMI Screening [facility] Start: 01-02-2024 ambulatory Ambulatory Facility: [place] Start: 08-15-2023 Bacteria identified in Urine by Culture [facility] Start: 06-28-2023 [facility] Start: 06-26-2023 Referral to urologist [facility] Start: 06-26-2023 Hospital admission [facility] Start: 03-10-2023 Influenza vaccination Influenza Vaccine [facility] Start: 01-24-2023 Diagnostic ultrasound of gravid uterus [facility] Start: 01-24-2023 Ultrasonography of bilateral kidneys US renal BI [facility] Start: 01-24-2023 US Kidney - bilateral [facility] Start: 01-24-2023 Transvaginal obstetric ultrasonography [facility] Start: 2009 DTaP,Tdap and Td Vaccines (1 - Tdap) DTaP,Tdap and Td Vaccines (1 - Tdap) [facility] Start: 2008 Adult BMI Follow Up Plan Adult BMI Follow Up Plan [facility] Start: 2002 Depression Screening Depression Screening [facility] Cefuroxime free [Mass/volume] in Serum or Plasma [facility] Patient Education [facility] Work Phone: Patient referral [facility] Work Phone: Rheumatoid factor [Units/volume] in Serum or Plasma [facility] Immunizations Immunization Date Immunization Notes Care Provider Fa cility 05-06-2020 influenza virus vaccine, unspecified formulation Camila Gallego MD Work Phone: [facility] Payers Date Payer Category Payer Self-pay [id number] 2016 Unknown [id number] 2016 Unknown [employer] [id number] 2016-Present [phone] [address] [place] [address] [id number] 1990 Unknown [id number] 2.16.840.1.179206.3.579.2. 727 1990 Unknown [id number] 2.16.840.1.159825.3.579.2. 1259 1990 Unknown [id number] 2.16.840.1.226209.3.579.2. 1259 1990 Unknown [id number] 2.16.840.1.350070.3.579.2. 1259 1990 Unknown [id number] 2.16.840.1.550084.3.579.2. 1259 1990 Unknown [id number] 2.16.840.1.332989.3.579.2. 1286 Medicaid [place] [employer] [id number] [facility] [id number] Private Health Insurance [facility] [id number] Unknown [id number] [id number] Unknown [id number] 2.16.840.1.444664.3.579.2. 531 Unknown [id number] 2.16.840.1.224788.3.579.2. 531 Unknown [id number] 2.16.840.1.001911.3.579.2. 531 Unknown [id number] 2.16.840.1.886145.3.579.2. 531 Unknown [id number] 2.16.840.1.916223.3.579.2. 531 Unknown [id number] 2.16.840.1.300498.3.579.2. 531 Unknown [id number] 2.16.840.1.065242.3.579.2. 531 Worker's Compensation [facility] [place] [id number] Social History Date Type Detail Facility Start: 05-01-2020 End: 06-27-2023 Tobacco smoking status NHIS Never smoked tobacco (finding) [facility] Start: 1990 Sex Assigned At Female [facility] Start: 08-20-2020 End: 06-06-2023 Sex Assigned At [employer] Other Start: 06-06-2023 Alcohol intake Ex-drinker (finding) [facility] [employer] Start: 08-20-2020 End: 06-06-2023 History of Social function [facility] Childcare Unknown [facility] Start: 01-08-2023 [facility] [employer] [facility] Start: 1990 Sex Assigned At Not on file [facility] [employer] NEGATED: Highlighted rowStart: NINF History of tobacco use [facility] Goals Date Patient Goal Desired Activity [...] CAMILA GALLEGO MD documented in this encounter [facility] [employer] [facility] 08-04-2023 Telephone encount er Note Called in left voice message in regards to question about placenta accreta. Sonographic assessment was not consistent with abnormal placentation. No signs of placenta accreta by ultrasound. If you have any further questions please do not hesitate to contact our office. CAMILA GALLEGO MD [employer] Work Phone: 06-27-2023 Consult note Note Date/Time June 27, 2023 2:48pm [facility] [address] [place] [address] Urology Consult Note Signed Patient: Elyssa Smith MR#: [id number] : 1990 Acct:[id number] Age/Sex: 33 / F Adm Date: 3 Loc: Room: [address] [place] [address] Type: ADM INOo Attending Dr: Emerald Martinez [...] P documented by Dr. Martinez earlier today [facility] Medical History (Updated 06/27/23 @ 07:15 [...] % (Auto) 87.1, Lymph % (Auto) 8.3, [place] % (Auto) 4.2, Eos % (Auto)0.2, Baso % (Auto) 0.2, Nucleat RBC Rel Count 0.1, Neut # (Auto) 11.9 H, Lymph #(Auto) 1.1, [place] # (Auto) 0.6, Eos # (Auto) 0.0, Baso # (Auto) 0.0 06/26/23 20:07: Fibronectin Negative 06/26/23 19:20: Urine Opiates Screen Negative, Ur Barbiturates Screen Negative, Ur Phencyclidine Scrn Negative, Ur Amphetamines Screen Negative, U Benzodiazepines Scrn Negative, Urine Cocaine Screen Negative 06/26/23 19:20: Urine Color Yellow, Urine Appearance Clear, Urine pH 6.5, Ur Specific [place] 1.009, Urine Protein Trace H, Urine Glucose [...] <Electronically signed by MD Alfredo Landin> 06/27/23 6235 [facility] Work Phone: 1(494) 755-153812-19-2023 History and physical note Author Emerald Martinez [facility] June 27, 2023 7:16am Note Date/Time June 27, 2023 7:10am [facility] [address] [place] [address] PEDIATRIC INTENSIVE PHYSICIAN History & Physical Signed Patient: Elyssa Smith MR#: [id number] : 1990 Acct:[id number] Age/Sex: 33 / F Adm Date: 3 Loc: Room: [address] [place] [address] Type: REG CLI Attending Dr: Emerald Martinez [...] pain is controlledwith IV pain meds. OB [facility] Medical History (Updated 06/27/23 @ 07:15 [...] 50 mls @ 100 mls/hr IV Q8H [facility] Last Admin: 06/27/23 05:16 Dose: 100 mls/hr [...] % (Auto) 87.1, Lymph % (Auto) 8.3, [place] % (Auto) 4.2, Eos % (Auto)0.2, Baso % (Auto) 0.2, Nucleat RBC Rel Count 0.1, Neut # (Auto) 11.9 H, Lymph #(Auto) 1.1, [place] # (Auto) 0.6, Eos # (Auto) 0.0, Baso # (Auto) 0.0 06/26/23 20:07: Fibronectin Negative 06/26/23 19:20: Urine Opiates Screen Negative, Ur Barbiturates Screen Negative, Ur Phencyclidine Scrn Negative, Ur Amphetamines Screen Negative, U Benzodiazepines Scrn Negative, Urine Cocaine Screen Negative 06/26/23 19:20: Urine Color Yellow, Urine Appearance Clear, Urine pH 6.5, Ur Specific [place] 1.009, Urine Protein Trace H, Urine Glucose [...] currently. She does see Dr. Erwin in [place] for her care (2) Right kidney stone: Plan: Urology has been consulted- awaiting recommendations (3) Hydronephrosis, right: Plan: Urology has been consulted-awaiting recommendations Documented By: Emerald Martinez DO 06/27/23 07 06 Signed By: <Electronically signed by Emerald Martinez DO> 06/27/23 0716 [facility] Work Phone: [phone]) 287-654405-02-2023 Evaluation note* Encounter Date Diagnosis Assessment Notes Treatment Notes Treatment Clinical Notes November, Abnormal weight gain (ICD-10 - R63.5) November, Mixed hyperlipidemia (ICD-10 - E78.2) November, Anxiety (ICD-10 - F41.9) November, Asthma (ICD-10 - J45.909) November, Kidney stones (ICD-1 0 - N20.0) [employer] Other Evaluation noteNo assessment information available [facility] Work Phone: Evaluation note* Diagnosis Onset Date Resolution Status 26 weeks gestation of acute Hydronephrosis, right acute Right kidney stone acute [facility] Work Phone: Evaluation note* Diagnosis Onset Date Resolution Status 26 weeks gestation of acute Hydronephrosis, right acute Right kidney stone resolved [facility] Work Phone: History general Narrative - Reported* Type Description Date Medical History asthma Surgical History C section x 2 Surgical History kidney stones Surgical History IUD removed Hospitalization History see surgical hx Musement [facility] [employer] Other Hospital Discharge instructions Additional Instructions Follow-up with your primary care doctor and OB-SHEATHER Return to ED if you develop worsening symptoms [facility] Work Phone: Hospital Discharge instructions Additional Instructions Follow up with Dr. Villatoro [facility] Work Phone: InstructionsNot on filedocumented in this encounter [facility] Author KIKI BEAL [facility] June 28, 2023 8:04am Note Date/Time June 28, 2023 7:43am [facility] [address] [place] [address] PEDIATRIC INTENSIVE PHYSICIAN Progress Note Signed Patient: Elyssa Smith MR#: [id number] : 1990 Acct:[id number] Age/Sex: 33 / F Adm Date: 3 Loc: 3E Room: [id number] Type: ADM INOo Attending Dr: Emerald Martinez [...] signed by MD KIKI BEAL> 06/28/23 0804 [facility] Work Phone: Chief Complaint and Reason for Visit Chief Complaint Z00.00 R63.5 R70..0 E55.9 Chief Complaint Obesity rt side lower back/abd pain Chief Complaint Vitamin D Deficiency Chief Complaint Vitamin D Deficiency E55.9 Chief Complaint Vitamin D Deficiency E55.9 26wks iup, back/flank pain, lower abd pain Reason for Visit 26 weeks gestation o f Hydronephrosis, right Right kidney stone Chief Complaint E55.9 26wks iup, back/flank pain, lower abd pain r319 Reason for Visit 26 weeks gestation o [...] DO Primary Care Provider Active Emerald Martinez DO Admit Provider, Attending Provide r Active Team Status: Inactive Member Role Status Dates Sallie Magaña DO Primary Care Provider Active Start: June 06, 2023 End: June 06, 2023 Latrice Sepulveda MD Attending Provider Active Start: June 06, 2023 End: June 06, 2023 Team Status: Inactive Member Role Status Dates Sallie Magaña DO Primary Care Provider Active Start: June 26, 2023 End: June 28, 2023 Emerald Martinez , Admit Provider, Att ending Provider Active Start: June 26, 2023 End: June 28, 2023 Team Status: Inactive Member Role Status Dates Sallie Magaña DO Primary Care Provider Active Start: August 15, 2023 End: August 15, 2023 Edgar Erwin Attending Provider Active Start: Arcelia meyers 2023 End: August 15, 2023 Goals (unrecognized section and content) Goals may be documented in a n alternate sectionNo InformationGoals may be documented in an alternate sectionGoals may be documented in an alternate sectionGoals may be documented in an alternate sectionNot on filedocumented as of this encounter REASON FOR VISIT (unrecogniz ed section and content) Initial [facility]N INFORMATION SOURCE (unrecogn ized section and content) DATE CREATED AUTHOR 07/15/2023 [facility] DATE CREATED AUTHOR AUTHOR'S ORGANIZ ATION 08/02/2023 [facility] EPIC DATE CREATED AUTHOR AUTHOR'S ORGANIZ ATION 08/06/2023 [facility] DATE CREATED AUTHOR AUTHOR'S ORGANIZ ATION 08/17/2023 [facility] FOR RECORDS PERTAINING TO PATIENTS WHO [...] BE BASED ON THE PRIMARY CLINICAL RECORDS. [employer] provides no warranty or guarantee of the accuracy or completeness of information in this document.
[2023-08-17 11:29] LABS: Basophils Percent Auto 0.2 % (0.2-2.0); Eosinophils Absolute Auto 0.1 10^3/uL (0.0-0.7); Hematocrit 35.2 % (36.0-48.0); Hemoglobin 11.4 g/dL (12.0-16.0); Immature Granulocytes Abs Auto 0.07 10^3/uL (0.00-0.03); Immature Granulocytes Pct Auto 0.8 % (0.0-0.5); Lymphocytes Absolute Auto 1.4 10^3/uL (1.2-3.8); Lymphocytes Percent Auto 15.6 % (20.5-60.0); Mean Corpuscular HGB Conc 32.4 g/dL (29.9-35.2); Mean Corpuscular Hemoglobin 28.1 pg (26.7-34.0); Mean Corpuscular Volume 86.9 fL (81.0-99.0); Monocytes Absolute Auto 0.5 10^3/uL (0.3-0.8); Monocytes Percent Auto 5.8 % (1.7-12.0); Neutrophils Percent Auto 76.6 % (43.0-75.0); Platelet Count 162 10^3/uL (150-450); Red Blood Count 4.05 10^6/uL (4.20-5.40); Red Cell Distribution Width 13.4 % (11.0-15.0); White Blood Count 9.1 10^3/uL (4.0-11.0)
[2023-08-17 11:30] LABS: Bilirubin Urine NEGATIVE (NEGATIVE); Blood Urine SMALL (NEGATIVE); Clarity Urine CLEAR (CLEAR); Color Urine YELLOW (YELLOW); Glucose Urine UA NEGATIVE (NEGATIVE); Ketones Urine 15 mg/dL (NEGATIVE); Leukocyte Esterase Urine NEGATIVE (NEGATIVE); Nitrite Urine NEGATIVE (NEGATIVE); Protein Urine NEGATIVE (NEG/TRACE); Specific Gravity Urine >=1.030 (1.005-1.025); Urine Microscopic Indicated YES; Urobilinogen Urine 0.2 EU/dL (0.2-1.0)
[2023-08-17 11:38] LABS: Estimated GFR (African America >60 (>=60); Estimated GFR (Non-African Ame >60 (>=60)
[2023-08-17 11:44] LABS: Bacteria Urine MODERATE #/HPF (NONE SEEN); Mucus Urine SMALL (NONE SEEN)
[2023-08-17 11:45] LABS: Squamous Epithelial Cell Urine MANY #/LPF (NONE/RARE)
[2023-08-17 11:46] LABS: Urine Culture Indicated YES
[2023-08-17] MEDS: 0.9 % SODIUM CHLORIDE 1,000 ML 1000 ML IV (12:14)
[2023-08-17] MEDS: ONDANSETRON PF 4 MG/2 ML VIAL IV (12:16)
[2023-08-17] MEDS: HYDROMORPHONE HCL 1 MG/ML CARTRIDGE IV ×2 (12:16→15:49)
[2023-08-17 12:24] VITALS: BP 128/76; PULSE 96
[2023-08-17] MEDS: HYDROCODONE/ACET 5-325 MG TABLET 2 TAB PO (13:30)
[2023-08-17] MEDS: 0.9 % SODIUM CHLORIDE 1,000 ML 125 ML IV (13:32)
[2023-08-17] MEDS: PROMETHAZINE HCL 25 MG/ML VIAL 12.5 MG IV (13:36)
[2023-08-17] MEDS: FLUCONAZOLE 150 MG TABLET PO (14:19)
[2023-08-17 14:48] VITALS: BP 136/71; PULSE 93; TEMP 36.3
[2023-08-17] MEDS: OXYCODONE HCL/ACETAMINOPHEN 5MG/325MG 2 TAB PO (19:04)
[2023-08-17] MEDS: 0.9 % SODIUM CHLORIDE 1,000 ML 200 ML IV (19:55)
[2023-08-17 21:10] VITALS: PULSE 103; RESP 16; TEMP 37; O2SAT 97
[2023-08-18] MEDS: 0.9 % SODIUM CHLORIDE 1,000 ML 200 ML IV (00:51)
--- NOTE | 2023-08-18 07:54 | P.OBHP_ITS ---
OB - H&P: HPI History of Present Illness Chief complaint: ABD PAIN : 3 Para: 3 Gestational age based on last menstrual period: 33 6/7wks Narrative: 32 at 33 6/7wks presents with rt back flank pain, ho kidney stones during her , ho uti, us-mod severe hydro, ua-hematuria History of Present Dating criteria: LMP confirmed by 1st trimester US care: good care Ultrasounds: normal 1st trimester US Labs Blood type: O (+) positive Review of Systems ROS Status of ROS: 10 or more systems reviewed and unremarkable except as noted in history and below Meds Home Medications and Allergies Home Medications Medication Instructions Recorded Confirmed Type cholecalciferol (vitamin D3) 50 2,000 unit PO DAILY 06/29/23 06/29/23 History mcg (2,000 unit) tablet vits,calcium 21-iron fum tab PO 06/29/23 History 14 mg iron-folic acid 400 mcg tablet ( Complete) hydrocodone 5 mg-acetaminophen 325 1 tab PO Q4H PRN pain 4 days #16 06/30/23 Rx mg tablet tabs Allergies Allergy/AdvReac Type Severity Reaction Status Date / Time dicyclomine [From Bentyl] Allergy Intermediate cant see Verified 06/28/23 17:36 fish oil Allergy Intermediate Hives Verified 06/28/23 17:36 Exam Constitutional Vital Signs, click to edit/add: Last Vital Signs Temp 98.6 F 08/17/23 21:10 Pulse 103 H 08/17/23 21:10 Resp 16 08/17/23 21:10 BP 136/71 08/17/23 14:48 Pulse Ox 97 08/17/23 21:10 O2 Del Method Room Air 08/17/23 21:10 Documenting provider has reviewed patient's vital signs: yes Common normals: no apparent distress Respiratory Common normals: clear to auscultation bilaterally Cardio Common normals: regular rate and regular rhythm GI Common normals: Normal to inspection, nondistended, normoactive bowel sounds present Extremity Common normals: no calf tenderness Results Labs Labs: Short CBC 08/17/23 Range/Units 11:20 WBC 9.1 (4.0-11.0) 10^3/uL Hgb 11.4 L (12.0-16.0) g/dL Hct 35.2 L (36.0-48.0) % Plt Count 162 (150-450) 10^3/uL BMP 08/17/23 11:20 BUN 6.0 L Creatinine 0.53 L Urine 08/17/23 Range/Units 11:15 Urine Color Yellow (YELLOW) Urine Clarity Clear (CLEAR) Urine pH 6.0 (5.0-9.0) Ur Specific [place] >=1.030 A (1.005-1.025) Urine Protein Negative (NEG/TRACE) mg/dL Urine Glucose (UA) Negative (NEGATIVE) mg/dL OB - A/P Assessment and Plan (1) Supervision of normal IUP (intrauterine ) in multigravida: Plan iup at 33 6/7wks, kidney stone-iv hydration, obtain labs, urology consult, pt passed kidney stone greatly improved, dc home, fu 1wk
== END 2023-08-18 08:40 | disposition home or self-care (01) ==
PROVIDERS: Admitting Provider Obstetrics & Gynecology; Visit Provider Obstetrics & Gynecology
DX: O99.891 Other specified diseases and conditions complicating pregnancy (principal); N13.2 Hydronephrosis with renal and ureteral calculous obstruction; Z3A.33 33 weeks gestation of pregnancy; Z87.440 Personal history of urinary (tract) infections; Z79.899 Other long term (current) drug therapy
CPT/HCPCS: 36415; 59025; 59050; 76775; 81001; 82565; 84520; 85025; 87086; 87106; 96374; 96375; 96376; G0378; G0379; J1170; J2250; J2405

== ENCOUNTER 2023-09-04 20:06 | Observation (INO) | payer OTHER, SELFPAY ==
--- OUTSIDE RECORDS SUMMARY | 2023-09-04 20:11 | XMS_ITS | CCD ---
Author Name Unknown Address [address] [facility] [address] [place] [address] Organization [facility] Care Team Providers Care Manager Project Management Name Role Phone DO Sallie Magaña Primary Care Provider DO Sallie Magaña Attending Provider [phone] Hilario Reynolds Unavailable DO Sallie Magaña Primary Care Provider [phone] MD Hilario Reynolds Attending Provider DO Sarmad Luque Emergency Provider DO Sallie Magaña Primary Care Provider DO Sallie Magaña Attending Provider DO Sallie Magaña Primary Care Provider DO Sallie Magaña Attending Provider MD Latrice Sepulveda Attending Provider [phone] DO Emerald Martinez Admit Provider DO Emerald Martinez Attending Provider [phone] Alfredo LANDIN Attending Unavailable Alfredo LANDIN Referring Unavailable Alfredo LANDIN Attending Unavailable Unavailable Primary Care Provider UnavailCAMILA Jones Referring Unavailable DO Sallie Magaña Primary Care Provider Edgar Erwin Attending Provider EDGAR ERWIN Attending Unavailable EDGAR ERWIN Attending Unavailable EDGAR ERWIN Attending Unavailable BRANDON CAMARGO Attending Unavailable EDGAR ERWIN Attending Unavailable Latrice Sepulveda Admitting Unavailable Latrice Sepulveda Attending Unavailable Sallie Magaña Primary Care Unavailable Edgar Erwin Admitting Unavailable Edgar Erwin Attending Unavailable Sallie Magaña Primary Care Unavailable Sallie Magaña Attending Unavailable Sallie Magaña Admitting Unavailable Sallie Magaña Primary Care Unavailable Sallie Magaña Primary Care Unavailable Hilario Reynolds Admitting Unavailable Hilario Reynolds Attending Unavailable Emerald Martinez Admitting Unavailable Emerald Martinez Attending Unavailable Sallie Magaña Primary Care Unavailable Sallie Magaña Primary Care Unavailable Edmond Luqueed M Admitting Unavailable Sarmad Luque M Attending Unavailable Sallie Magaña Primary Care Unavailable Sallie Magaña Attending Unavailable Sallie Magaña Admitting Unavailable Jonah Magaña DO Unavailable [phone] Jonah Magaña DO Primary Care Provider Allergies Allergy Classification Reported Allergen(s) Allergy Type Date of Onset Reaction(s) Facility (12 sources) Dicyclomine; Translations: [dicyclomine] Drug Allergy 6 Other (See Comments), Hives, Other, Unknown [facility] (9 sources) Fish Oils; Translations: [fish oil] Drug Allergy 0 Hives, [facility] (7 sources) Gluten; Translations: [gluten] Propensity to adverse reactions 0 Nausea [facility] (1 source) DHA Propensity to adverse reactions Unknown [facility] Other (2 sources) Pnv 794-[id number]-Cxmdq -3-Fish Oil; Translations: [PNV 721-NIXOY-CJHWO -3-FISH OIL] Propensity to adverse reactions to drug 6 Hives [facility] (2 sources) Pollen Allergy to substance 3 Unknown [facility] (2 sources) Other Propensity to adverse reactions 6 Hives [facility] Medications Current Medications Medication Drug Class(es) Dates [...] 2018 12:00am cholecalciferol 0.025 mg oral capsule (8 sources) Vitamin D Start: 01-24-2023 take 1 capsule by mouth once daily Cholecalciferol (Vitamin D3) (Vitamin D3) 25 mcg (1,000 unit) Capsule Active 25 MCG PO Daily January 23, 2023 11:00pm take 1 tablet by mouth in the mo rning cholecalciferol (Vitamin D3) 25 MCG (1000 UT) tablet Take 2,000 mcg by mouth in the morning. 0 Active take 1 tablet by sary th every twenty-four hours Vitamin D 50 MCG (2000 UT) 1 tablet Oral ly Once a day Active cholecalciferol, vitamin D3, (VITAMIN D3 ORAL) (1 source) cholecalciferol, vitamin D3, (VITAMIN D3 ORAL) Take by mouth. 0 Active ferrous sulfate (1 source) ferrous sulfate (IRON ORAL) Take by mouth. 0 Active ibuprofen 800 mg oral tablet (12 sources) Nonsteroidal Anti-inflammatory Drug Start: 019 take 400 mg by mouth three times daily Ibuprofen Active 400 MG PO Three times daily May 05, 2019 4:22am Start: 09-21-2018 End: 05-05-2019 take 800 mg by mouth three times daily Ibuprofen Discontinued 800 MG PO Three times daily September 20, 2018 11:00pm May 05, 2019 4:22am nitrofurantoin, macrocrystals 25 mg / nitrofurantoin, monohydrate 75 mg oral capsule (2 sources) Nitrofuran Antibacterial Start: 08-16-2023 End: 08-23-2023 take 1 capsule by mouth in the morning nitrofurantoin, macrocrystal-monohydrate, (Macrobid) 100 MG capsule Indications: Hematuria, unspecified type Take 1 capsule (100 mg) by mouth in the morning and 1 capsule (100 mg) before bedtime. Do all this for 7 days. 14 capsule 0 08/16/2023 08/23/2023 Active PNV95/FERROUS FUMARATE/FA ( ORAL) (1 source) take 1 tablet by mouth once daily PNV95/FERROUS FUMARATE/FA ( ORAL) Take 1 tablet by mouth daily. 0 Active MV-Min-Fe Fum-FA-DHA ( 1 PO) (2 sources) MV-Min- Fe Fum-FA-DHA ( 1 PO) Take by mouth. 0 Active Semaglutide (5 sources) Start: 01-24-2023 [...] Drug Class(es) Dates Sig (Normalized) Sig (Original) cephalexin 500 mg oral capsule (4 sources) Cephalosporin Antibacterial Start: 08-01-2023 End: 08-16-2023 take 1 capsule by mouth in the morning, then take 1 capsule by mouth in the evening, then take 1 capsule by mouth at bedtime cephalexin (Keflex) 500 MG capsule Indications: Urinary tract infection with hematuria, site unspecified Take 1 capsule (500 mg) by mouth in the morning and 1 capsule (500 mg) in the evening and 1 capsule (500 mg) before bedtime. Do all this for 7 days. 21 capsule 0 08/15/2023 08/16/2023 Discontinued (Therapy completed) Niacin (1 source) Nicotinic Acid Niacin Not-Ora simeon oseltamivir 75 mg oral capsule (6 sources) Neuraminidase Inhibitor Start: 09-21-2018 End: 09-28-2018 take 1 capsule by mouth once daily Oseltamivir (Tamiflu) 75 mg capsule Discontinued 75 MG PO Daily 7 7 September 20, 2018 11:00pm September 27, [...] Translations: [Unspecified fall, initial encounter] 02-13-2019 Episodic Genitourinary symptoms and ill-defined conditions (2 sources) Blood in urine; Translations: [Hematuria, unspecified] 08-16-2023 Episodic Nutritional deficiencies (1 source) Vitamin D [...] 06-28-2023 Episodic Other and delivery including normal (7 sources) test positive; Translations: [Encounter for test, [...] medical examination without abnormal findings] Onset: 10-27-2022 Unclassified (2 sources) OB Reminders Onset: 05-19-2023 05-19-2023 Urinary tract infections (6 sources) Urinary tract [...] Test Name Value Interpretation Reference Range Facility Urinalysis macro (dipstick) panel (U)on 08-16-2023 Bilirubin, UA Negative Negative - 4(70) +++ mg/dL [facility] Blood, UA Positive Negative - 50 Johnny/mcL [facility] Clarity, UA Cloudy [facility] Color, UA Yellow [facility] Glucose, UA Negative Negative - 2000(110) ++++ mg/dL [facility] Interpretation and review of laboratory results Abnormal [facility] Ketones, UA Negative Negative - 160(16) ++++ mg/dL [facility] Leukocytes, UA Negative Negative - 500+++ Mireya/mcL [facility] Nitrite, UA Negative Negative - Positive [facility] pH, UA 7.0 5 - 9 [facility] Protein, UA Negative Negative - 2000(20) ++++ mg/dL [facility] Spec Grav, UA 1.020 1 - 1.03 [facility] Urobilinogen, UA 0.2 0.2 - 12 mg/dL [facility] Urine Cultureon 08-15-2023 Bacteria identified Cx Nom (U) ORGANISM: Chelsi albicans (O:CANALB) [place] Count 30,000 PERFORMED BY: [place] [address] PATHOLOGIST [employer] JERRY CASTRO M.D. [facility] Comment on above: Performed By: #### U HCG, ADDONUAPLUS #### [address] Lab Reportson 07-14-2023 Lab Reports [id number]#1 .00TIFF [facility] Insurance Correspondence Off iceon 06-30-2023 Insurance Correspondence Office [id number]# 1.00TIFF Normal [facility] Lab Reportson 06-30-2023 Lab Reports [id number]# 1.00TIFF Normal [facility] RAD - Ultrasound Reporton RAD - Ultrasound Report [id number]#1 .00TIFF Normal [facility] Lab Reportson 06-29-2023 Lab Reports [id number]#1 .00TIFF Normal [facility] Consultation Noteon 06-28-20 Consultation Note [id number]#1 .00TIFF Normal [facility] Complete Blood Count Auto Di ffon 06-27-2023 Basophils (Bld) [#/Vol] 0.0 10*3/uL Normal 0.0-0.2 [facility] Comment on above: Result Comment: PERF ORMED BY: [place] [address] PATHOLOGIST [employer] JERRY CASTRO M.D. Performed By: #### U HCG, ADDONUAPLUS #### [facility] [address] [place] [address] Basophils/100 WBC (Bld) 0.2 % Normal . [facility] Comment on above: Performed By: #### U HCG, ADDONUAPLUS #### [facility] [address] [place] [address] [place] Eosinophils (Bld) [#/Vol] 0.0 10*3/uL Normal 0.0-0.45 [facility] Comment on above: Performed By: #### U HCG, ADDONUAPLUS #### [facility] [address] [place] [address] [place] Eosinophils/100 WBC (Bld) 0.2 % Normal . [facility] Comment on above: Performed By: #### U HCG, ADDONUAPLUS #### [facility] [address] [place] [address] [place] Erythrocyte distribution width (RBC) [Ratio] 13.4 % Normal 11.9-15.3 [facility] Comment on above: Performed By: #### U HCG, ADDONUAPLUS #### [facility] [address] Hematocrit (Bld) [Volume fraction] 33.5 % Low 34.0-46.4 [facility] Comment on above: Performed By: #### U HCG, ADDONUAPLUS #### [facility] [address] Hemoglobin (Bld) [Mass/Vol] 11.3 g/dL Low 11.8-15.4 [facility] Comment on above: Performed By: #### U HCG, ADDONUAPLUS #### [facility] [address] [place] [address] Lymphocytes (Bld) [#/Vol] 1.1 10*3/uL Normal 1.00-4.8 [facility] Comment on above: Performed By: #### U HCG, ADDONUAPLUS #### [facility] [address] [place] [address] Lymphocytes/100 WBC (Bld) 8.3 % Normal . [facility] Comment on above: Performed By: #### U HCG, ADDONUAPLUS #### [address] MCH (RBC) [Entitic mass] 29.0 pg Normal 24.7-34.3 [facility] Comment on above: Performed By: #### U HCG, ADDONUAPLUS #### [facility] [address] [place] [address] MCV (RBC) [Entitic vol] 86.2 fL Normal 80-100 F [facility] Comment on above: Performed By: #### U HCG, ADDONUAPLUS #### [facility] [address] [place] [address] Mean Corpuscular HGB Conc 33.7 g/dL Normal 32.0-35.0 [facility] Comment on above: Performed By: #### U HCG, ADDONUAPLUS #### [facility] [address] [place] [address] [place] Monocytes (Bld) [#/Vol] 0.6 10*3/uL Normal 0.0-0.8 [facility] Comment on above: Performed By: #### U HCG, ADDONUAPLUS #### [facility] [address] [place] [address] [place] Monocytes/100 WBC (Bld) 4.2 % Normal . F [facility] Comment on above: Performed By: #### U HCG, ADDONUAPLUS #### [facility] [address] [place] [address] [place] Neutrophils (Bld) [#/Vol] 11.9 10*3/uL High 1.8-7.7 [facility] Comment on above: Performed By: #### U HCG, ADDONUAPLUS #### [facility] [address] Neutrophils/100 WBC (Bld) 87.1 % Normal . [facility] Comment on above: Performed By: #### U HCG, ADDONUAPLUS #### [facility] [address] NRBC% 0.1 /100{WBC} Normal 0-0.5 [facility] Comment on above: Performed By: #### U HCG, ADDONUAPLUS #### [facility] [address] Platelet mean volume (Bld) [Entitic vol] 9.8 fL Normal 6.3-10.7 [facility] Comment on above: Performed By: #### U HCG, ADDONUAPLUS #### [facility] [address] [place] [address] [place] Platelets (Bld) [#/Vol] 174 10*3/uL Normal 150-450 [facility] Comment on above: Performed By: #### U HCG, ADDONUAPLUS #### [facility] [address] [place] [address] [place] RBC (Bld) [#/Vol] 3.89 10*6/uL Normal 3.60-5.00 [facility] Comment on above: Performed By: #### U HCG, ADDONUAPLUS #### [facility] [address] [place] [address] [place] WBC (Bld) [#/Vol] 13.6 10*3/uL High 3.8-11.6 [facility] Comment on above: Performed By: #### U HCG, ADDONUAPLUS #### [facility] [address] [place] [address] Comprehensive Metabolic Pane mauricio 06-27-2023 Albumin [Mass/Vol] 3.4 g/dL Low 3.5-5.7 [facility] Comment on above: Performed By: #### U HCG, ADDONUAPLUS #### [facility] [address] [place] [address] Albumin/Globulin [Mass ratio] 1.6 {ratio} Normal [facility] Comment on above: Performed By: #### U HCG, ADDONUAPLUS #### [facility] [address] [place] [address] ALP [Catalytic activity/Vol] 88 U/L Normal 34-104 [facility] Comment on above: Performed By: #### U HCG, ADDONUAPLUS #### [facility] [address] [place] [address] ALT [Catalytic activity/Vol] 17 U/L Normal 7-52 [facility] Comment on above: Performed By: #### U HCG, ADDONUAPLUS #### [facility] [address] [place] [address] Anion gap [Moles/Vol] 12.5 mmol/L Normal 6.0-15.0 [facility] Comment on above: Performed By: #### U HCG, ADDONUAPLUS #### [facility] [address] [place] [address] AST [Catalytic activity/Vol] 14 U/L Normal 13-39 [facility] Comment on above: Performed By: #### U HCG, ADDONUAPLUS #### [facility] [address] [place] [address] Bilirubin [Mass/Vol] 0.3 mg/dL Normal 0.3-1.0 [facility] Comment on above: Performed By: #### U HCG, ADDONUAPLUS #### [facility] [address] Calcium [Mass/Vol] 8.2 mg/dL Low 8.6-10.3 [facility] Comment on above: Performed By: #### U HCG, ADDONUAPLUS #### [facility] [address] Chloride [Moles/Vol] 105 mmol/L Normal 98-107 [facility] Comment on above: Performed By: #### U HCG, ADDONUAPLUS #### [facility] [address] CO2 [Moles/Vol] 23.8 mmol/L Normal 21.0-31.0 [facility] Comment on above: Performed By: #### U HCG, ADDONUAPLUS #### [address] Creatinine [Mass/Vol] 0.52 mg/dL Low 0.60-1.20 [facility] Comment on above: Performed By: #### U HCG, ADDONUAPLUS #### [address] Creatinine Clr Calc Pharmacy 138.60 Normal [facility] Comment on above: Result Comment: PERF ORMED BY: [place] [address] PATHOLOGIST [employer] JERRY CASTRO M.D. Performed By: #### U HCG, ADDONUAPLUS #### [address] GFR/1.73 sq M.predicted MDRD (S/P/Bld) [Vol rate/Area] mL/min/{1.73_m2} Normal [facility] Comment on above: Performed By: #### U HCG, ADDONUAPLUS #### [address] Globulin (S) [Mass/Vol] 2.1 g/dL Normal [facility] Comment on above: Performed By: #### U HCG, ADDONUAPLUS #### [address] Glucose [Mass/Vol] 124 mg/dL High 70-100 [facility] Comment on above: Result Comment: [place] Glucose Reference Range is dependent on time and content of last meal. Glucose of more than 200 mg/dL in a nonstressed, ambulatory subject supports the diagnosis of Diabetes Mellitus. ADA recommended reference range Performed By: #### U HCG, ADDONUAPLUS #### [facility] [address] Potassium [Moles/Vol] 3.3 mmol/L Low 3.5-5.1 [facility] Comment on above: Performed By: #### U HCG, ADDONUAPLUS #### [facility] [address] [place] [address] Protein [Mass/Vol] 5.5 g/dL Low 6.4-8.9 [facility] Comment on above: Performed By: #### U HCG, ADDONUAPLUS #### [facility] [address] [place] [address] Sodium [Moles/Vol] 138 mmol/L Normal 136-145 [facility] Comment on above: Performed By: #### U HCG, ADDONUAPLUS #### [facility] [address] [place] [address] Urea nitrogen [Mass/Vol] 6 mg/dL Low 7-25 [facility] Comment on above: Performed By: #### U HCG, ADDONUAPLUS #### [facility] [address] [place] [address] US renal BIon 06-27-2023 US renal BI [facility] [place] [address] [place] [address] Ultrasound Report Signed Patient: Elyssa Smith MR#: [id number] : 1990 Acct:[id number] Age/Sex: 33 / F ADM Date: 06/27/23 Loc: Room: 3T4702-6 Type: ADM INOo Attending Dr: Emerald Martinez [...] Kathleen Vaca M.D.06/27/2023 7:44 AM Dictation Location: [place] [address] Tech: Eryn Welsh Transcribed By: SILVINA 06/27/23 0744 Dictated By: Kathleen Vaca MD 06/27/23 0742 Signed By: 06/27/23 0744 Normal [facility] Alanine aminotransferase [En zymatic activity/volume] in Serum or PlasmaOrdered By: Emerald Martinez on 06-26-2023 ALT [Catalytic activity/Vol] 17 U/L 7-52 [facility] Albumin [Mass/volume] in Ser um or Plasma by Bromocresol green (BCG) dye binding methoOrdered By: Emerald Martinez on 06-26-2023 Albumin BCG dye [Mass/Vol] 3.4 g/dL 3.5-5.7 [facility] Alkaline phosphatase [Enzyma tic activity/volume] in Serum or PlasmaOrdered By: Emerald Martinez on 06-26-2023 ALP [Catalytic activity/Vol] 88 U/L 34-104 [facility] Amphetamine Screen Ql (U)Ord ered By: Emerald Martinez on 06-26-2023 Amphetamines Ql (U) Negative Negative [facility] Aspartate aminotransferase [ Enzymatic activity/volume] in Serum or PlasmaOrdered By: Emerald Martinez on 06-26-2023 AST [Catalytic activity/Vol] 14 U/L 13-39 [facility] Automated epithelial cells c ount in urine sediment (number/area)Ordered By: Emerald Martinez on 06-26-2023 Epithelial cells Auto (Urine sed) [#/Area] 10-19 [HPF] 0-2 [facility] Automated erythrocytes count in urine sediment (number/area)Ordered By: Emerald Martinez on 06-26-2023 RBC Auto (Urine sed) [#/Area] 10-19 [HPF] 0-4 [facility] Automated leukocytes count i n urine sediment (number/area)Ordered By: Emerald Martinez on 06-26-2023 WBC Auto (Urine sed) [#/Area] 0-1 [HPF] 0-4 [facility] Automated urine hyaline cast s count (number/volume)Ordered By: Emerald Martinez on 06-26-2023 Hyaline casts Auto (U) [#/Vol] None seen [LPF] 0-1 [facility] Barbiturates [Presence] in U rine by Screen methodOrdered By: Emerald Martinez on 06-26-2023 Barbiturates Screen Ql (U) Negative Negative [facility] Basophils Auto (Bld) [#/Vol] Ordered By: Emerald Martinez on 06-26-2023 Basophils (Bld) [#/Vol] 0.0 10*3/uL 0.0-0.2 [facility] Basophils/100 WBC Auto (Bld) Ordered By: Emerald Martinez on 06-26-2023 Basophils/100 WBC (Bld) 0.2 % . [facility] Benzodiazepines Screen Ql (U )Ordered By: Emerald Martinez on 06-26-2023 Benzodiazepines Ql (U) Negative Negative [facility] Benzoylecgonine [Presence] i n Urine by Screen methodOrdered By: Emerald Martinez on 06-26-2023 Benzoylecgonine Screen Ql (U) Negative Negative [facility] Bilirubin Test strip Ql (U)O rdered By: Emerald Martinez on 06-26-2023 Bilirubin Ql (U) Negative Negative [facility] Bilirubin.total [Mass/volume ] in Serum or PlasmaOrdered By: Emerald Martinez on 06-26-2023 Bilirubin [Mass/Vol] 0.3 mg/dL 0.3-1.0 [facility] Calcium [Mass/volume] in Ser um or PlasmaOrdered By: Emerald Martinez on 06-26-2023 Calcium [Mass/Vol] 8.2 mg/dL 8.6-10.3 [facility] Carbon dioxide, total [Moles /volume] in Serum or PlasmaOrdered By: Emerald Martinez on 06-26-2023 CO2 [Moles/Vol] 23.8 mmol/L 21.0-31.0 [facility] Chloride [Moles/volume] in S gris or PlasmaOrdered By: Emerald Martinez on 06-26-2023 Chloride [Moles/Vol] 105 mmol/L 98-107 [facility] Color Auto (U)Ordered By: Graciela Martinez on 06-26-2023 Color (U) Yellow Yellow [facility] Creatinine [Mass/volume] in Serum or PlasmaOrdered By: Emerald Martinez on 06-26-2023 Creatinine [Mass/Vol] 0.52 mg/dL 0.60-1.20 [facility] Dipstick and Microscopicon 1 08-27-2022 Appearance (U) Clear Normal Clear [facility] Comment on above: Order Comment: Name Collection Type:: Clean-Voided Midstream Performed By: #### U HCG, ADDONUAPLUS #### [facility] [address] [place] [id number] [place] Bacteria,Urine Rare High None Seen [facility] Comment on above: Order Comment: Name Collection Type:: Clean-Voided Midstream Performed By: #### U HCG, ADDONUAPLUS #### [facility] [address] [place] [address] [place] Bilirubin,Urine Negative Normal Negative [facility] Comment on above: Order Comment: Name Collection Type:: Clean-Voided Midstream Performed By: #### U HCG, ADDONUAPLUS #### [facility] [address] [place] [address] [place] Color (U) Yellow Normal Yellow [facility] Comment on above: Order Comment: Name Collection Type:: Clean-Voided Midstream Performed By: #### U HCG, ADDONUAPLUS #### [facility] [address] [place] [address] Glucose Ql (U) Normal Normal Normal [facility] Comment on above: Order Comment: Name Collection Type:: Clean-Voided Midstream Performed By: #### U HCG, ADDONUAPLUS #### [facility] [address] [place] [address] Hyaline Casts,Urine None Seen Normal 0-1 [facility] Comment on above: Order Comment: Name Collection Type:: Clean-Voided Midstream Performed By: #### U HCG, ADDONUAPLUS #### [address] Ketones Ql (U) Negative Normal Negative [facility] Comment on above: Order Comment: Name Collection Type:: Clean-Voided Midstream Performed By: #### U HCG, ADDONUAPLUS #### [address] Leukocyte esterase Test strip Ql (U) Negative Normal Negative [facility] Comment on above: Order Comment: Name Collection Type:: Clean-Voided Midstream Performed By: #### U HCG, ADDONUAPLUS #### [facility] [address] [place] [address] Nitrite,Urine Negative Normal Negative [facility] Comment on above: Order Comment: Name Collection Type:: Clean-Voided Midstream Performed By: #### U HCG, ADDONUAPLUS #### [facility] [address] [place] [address] Occult Blood,Urine 3+ High Negative [facility] Comment on above: Order Comment: Name Collection Type:: Clean-Voided Midstream Result Comment: PERF ORMED BY: [place] [address] PATHOLOGIST [employer] JERRY CASTRO M.D. Performed By: #### U HCG, ADDONUAPLUS #### [facility] [address] [place] [address] pH (U) 6.5 [pH] Normal 5.0-9.0 [facility] Comment on above: Order Comment: Name Collection Type:: Clean-Voided Midstream Performed By: #### U HCG, ADDONUAPLUS #### [facility] [address] Protein,Urine Trace High Negative [facility] Comment on above: Order Comment: Name Collection Type:: Clean-Voided Midstream Performed By: #### U HCG, ADDONUAPLUS #### [facility] [address] [place] [address] RBC,Urine 10-19 High 0-4 [facility] Comment on above: Order Comment: Name Collection Type:: Clean-Voided Midstream Performed By: #### U HCG, ADDONUAPLUS #### [address] [address] Specificy [place],Urine 1.009 Normal 1.001-1.030 [facility] Comment on above: Order Comment: Name Collection Type:: Clean-Voided Midstream Performed By: #### U HCG, ADDONUAPLUS #### [facility] [address] [place] [address] Squamous Epithelial Cell,Urine 10-19 High 0-2 [facility] Comment on above: Order Comment: Name Collection Type:: Clean-Voided Midstream Performed By: #### U HCG, ADDONUAPLUS #### [address] Urobilinogen,Urine Normal Normal Normal [facility] Comment on above: Order Comment: Name Collection Type:: Clean-Voided Midstream Performed By: #### U HCG, ADDONUAPLUS #### [facility] [address] [place] [address] WBC LM.HPF (Urine sed) [#/Area] 0 /[HPF] Normal 0-4 [facility] Comment on above: Order Comment: Name Collection Type:: Clean-Voided Midstream Performed By: #### U HCG, ADDONUAPLUS #### [address] Yeast,Urine Rare Critically abnormal None Seen [facility] Comment on above: Order Comment: Name Collection Type:: Clean-Voided Midstream Result Comment: PERF ORMED BY: [place] [address] PATHOLOGIST [employer] JERRY CASTRO M.D. Performed By: #### U HCG, ADDONUAPLUS #### [facility] [address] [place] [address] Eosinophils Auto (Bld) [#/Vo l]Ordered By: Emerald Martinez on 06-26-2023 Eosinophils (Bld) [#/Vol] 0.0 10*3/uL 0.0-0.45 [facility] Eosinophils/100 WBC Auto (Bl d)Ordered By: Emerald Martinez on 06-26-2023 Eosinophils/100 WBC (Bld) 0.2 % . [facility] Erythrocyte distribution wid th Auto (RBC) [Ratio]Ordered By: Emerald Martinez on 06-26-2023 Erythrocyte distribution width (RBC) [Ratio] 13.4 % 11.9-15.3 [facility] Fibronectinon 06-26-20 23 Fibronectin Negative Normal Negative [facility] Comment on above: Order Comment: Name Collection Type:: Clean-Voided Midstream Result Comment: PERF ORMED BY: [place] [address] PATHOLOGIST [employer] JERRY CASTRO M.D. Performed By: #### U HCG, ADDONUAPLUS #### [facility] [address] [place] [address] fibronectinOrdered By: Emerald Martinez on 06-26-2023 Fibronectin. (Vag fld) [Mass/Vol] Negative Negative [facility] Globulin Calc (S) [Mass/Vol] Ordered By: Emerald Martinez on 06-26-2023 Globulin (S) [Mass/Vol] 2.1 g/dL [facility] Glucose [Mass/volume] in Ser um or PlasmaOrdered [...] Hematocrit (Bld) [Volume fraction] 33.5 % 34.0-46.4 [facility] Hemoglobin [Mass/volume] in BloodOrdered By: Emerald Martinez on 06-26-2023 Hemoglobin (Bld) [Mass/Vol] 11.3 g/dL 11.8-15.4 [facility] Ketones Auto test strip (U) [Mass/Vol]Ordered By: Emerald Martinez on 06-26-2023 Ketones (U) [Mass/Vol] Negative Negative [facility] Leukocytes [#/volume] correc mague for nucleated erythrocytes in Blood by Automated counOrdered By: Emerald Martinez on 06-26-2023 WBC corrected for nucl RBC Auto (Bld) [#/Vol] 13.6 10*3/uL 3.8-11.6 [facility] Lymphocytes Auto (Bld) [#/Vo l]Ordered By: Emerald Martinez on 06-26-2023 Lymphocytes (Bld) [#/Vol] 1.1 10*3/uL 1.00-4.8 [facility] Lymphocytes/100 WBC Auto (Bl d)Ordered By: Emerald Martinez on 06-26-2023 Lymphocytes/100 WBC (Bld) 8.3 % . [facility] MCH Auto (RBC) [Entitic mass ]Ordered By: Emerald Martinez on 06-26-2023 MCH (RBC) [Entitic mass] 29.0 pg 24.7-34.3 [facility] MCHC Auto (RBC) [Mass/Vol]Or dered By: Emerald Martinez on 06-26-2023 MCHC (RBC) [Mass/Vol] 33.7 g/dL 32.0-35.0 [facility] MCV Auto (RBC) [Entitic vol] Ordered By: Emerald Martinez on 06-26-2023 MCV (RBC) [Entitic vol] 86.2 fL 80-100 [facility] Monocytes Auto (Bld) [#/Vol] Ordered By: Emerald Martinez on 06-26-2023 Monocytes (Bld) [#/Vol] 0.6 10*3/uL 0.0-0.8 [facility] Monocytes/100 WBC Auto (Bld) Ordered By: Emerald Martinez on 06-26-2023 Monocytes/100 WBC (Bld) 4.2 % . [facility] Neutrophils Auto (Bld) [#/Vo l]Ordered By: Emerald Martinez on 06-26-2023 Neutrophils (Bld) [#/Vol] 11.9 10*3/uL 1.8-7.7 [facility] Neutrophils/100 WBC Auto (Bl d)Ordered By: Emerald Martinez on 06-26-2023 Neutrophils/100 WBC (Bld) 87.1 % . [facility] Nitrite Test strip Ql (U)Ord ered By: Emerald Martinez on 06-26-2023 Nitrite Ql (U) Negative Negative [facility] No Panel InformationOrdered By: Emerald Martinez on 06-26-2023 Estimated GFR (CKD-EPI) > 60.0 mL/Min [facility] Creatinine Clearance (Chem 138.60 [facility] Nucleated erythrocytes [Pres ence] in Blood by Automated countOrdered By: Emerald Martinez on 06-26-2023 Nucleated RBC Auto Ql (Bld) 0.1 /100{WBC} 0-0.5 [facility] OB Urine Drug Screen (NO THC )on 06-26-2023 Amphetamine Screen,Urine Negative Normal Negative [facility] Comment on above: Performed By: #### U HCG, ADDONUAPLUS #### [facility] [address] [place] [address] [place] Barbiturate Screen,Urine Negative Normal Negative [facility] Comment on above: Performed By: #### U HCG, ADDONUAPLUS #### [facility] [address] [place] [address] [place] Benzodiazepines Screen,Urine Negative Normal Negative [facility] Comment on above: Performed By: #### U HCG, ADDONUAPLUS #### [facility] [address] Cocaine Screen,Urine Negative Normal Negative [facility] Comment on above: Performed By: #### U HCG, ADDONUAPLUS #### [facility] [address] Opiate Screen,Urine Negative Normal Negative [facility] Comment on above: Performed By: #### U HCG, ADDONUAPLUS #### [facility] [address] Phencyclidine Screen, Urine Negative Normal Negative [facility] Comment on above: Result Comment: Thes e are unconfirmed results and should not be used for legal purposes. Drug Cut-Off Concentration: AMPH 1000 ng/mL DORIS 200 ng/mL LEANNE 200 ng/mL COCM 300 ng/mL OP 300 ng/mL PCP 25 ng/mL PERFORMED BY: [place] [address] PATHOLOGIST [employer] JERRY CASTRO M.D. Performed By: #### U HCG, ADDONUAPLUS #### [address] Opiates [Presence] in Urine by Screen methodOrdered By: Emerald Martinez on 06-26-2023 Opiates Screen Ql (U) Negative Negative [facility] Phencyclidine Screen Ql (U)O rdered By: Emerald Martinez on 06-26-2023 Phencyclidine Ql (U) Negative Negative [facility] Comment on above: These are unconfirme d results and should not be used for legal purposes. Drug Cut-Off Concentration: AMPH 1000 ng/mL DORIS 200 ng/mL LEANNE 200 ng/mL COCM 300 ng/mL OP 300 ng/mL PCP 25 ng/mL Platelet mean volume Auto (B ld) [Entitic vol]Ordered By: Emerald Martinez on 06-26-2023 Platelet mean volume (Bld) [Entitic vol] 9.8 fL 6.3-10.7 [facility] Platelets Auto (Bld) [#/Vol] Ordered By: Emerald Martinez on 06-26-2023 Platelets (Bld) [#/Vol] 174 10*3/uL 150-450 [facility] Potassium [Moles/volume] in Serum or PlasmaOrdered By: Emerald Martinez on 06-26-2023 Potassium [Moles/Vol] 3.3 mmol/L 3.5-5.1 [facility] Protein Auto test strip (U) [Mass/Vol]Ordered By: Emerald Martinez on 06-26-2023 Protein (U) [Mass/Vol] Trace mg/dL Negative [facility] Protein [Mass/volume] in Ser um or PlasmaOrdered By: Emerald Martinez on 06-26-2023 Protein [Mass/Vol] 5.5 g/dL 6.4-8.9 [facility] RBC Auto (Bld) [#/Vol]Ordere d By: Emerald Martinez on 06-26-2023 RBC (Bld) [#/Vol] 3.89 10*6/uL 3.60-5.00 [facility] Serum or plasma albumin/glob ulin mass ratioOrdered By: Emerald Martinez on 06-26-2023 Albumin/Globulin [Mass ratio] 1.6 {ratio} [facility] Serum or plasma anion gap de terminationOrdered By: Emerald Martinez on 06-26-2023 Anion gap [Moles/Vol] 12.5 mmol/L 6.0-15.0 [facility] Sodium [Moles/volume] in Ser um or PlasmaOrdered By: Emerald Martinez on 06-26-2023 Sodium [Moles/Vol] 138 mmol/L 136-145 [facility] Specific gravity Auto test s trip (U) [Rel density]Ordered By: Emerald Martinez on 06-26-2023 Specific gravity (U) [Rel density] 1.009 1.001-1.030 [facility] Urea nitrogen [Mass/volume] in Serum or PlasmaOrdered By: Emerald Martinez on 06-26-2023 Urea nitrogen [Mass/Vol] 6 mg/dL 7-25 [facility] Urine bacteria detection by automated methodOrdered By: Emerald Martinez on 06-26-2023 Bacteria Auto Ql (U) Rare None Seen [facility] Urine clarity by refractomet ry automatedOrdered By: Emerald Martinez on 06-26-2023 Clarity Refractometry automated (U) Clear Clear [facility] Urine glucose measurement by automated test strip (mass/volume)Ordered By: Emerald Martinez on 06-26-2023 Glucose Auto test strip (U) [Mass/Vol] Normal mg/dL Normal [facility] Urine hemoglobin detection b y automated test stripOrdered By: Emerald Martinez on 06-26-2023 Hemoglobin Auto test strip Ql (U) 3+ Negative [facility] Urine leukocyte esterase det ection by automated test stripOrdered By: Emerald Martinez on 06-26-2023 Leukocyte esterase Auto test strip Ql (U) Negative Negative [facility] Urobilinogen Auto test strip (U) [Mass/Vol]Ordered By: Emerald Martinez on 06-26-2023 Urobilinogen (U) [Mass/Vol] Normal mg/dL Normal [facility] WBC Auto (Bld) [#/Vol]Ordere d By: Emerald Martinez on 06-26-2023 WBC (Bld) [#/Vol] 13.6 10*3/uL 3.8-11.6 [facility] Yeast detection in urine sed iment by light microscopyOrdered By: Emerald Martinez on 06-26-2023 Yeast LM Ql (Urine sed) Rare [HPF] None Seen [facility] pH Auto test strip (U)Ordere d By: Emerald Maritnez on 06-26-2023 pH (U) 6.5 [pH] 5.0-9.0 [facility] 1,25 Dihydroxy Vit D Calcitr olon 06-06-2023 1,25 Dihydroxy Vit D Calcitrol 123.0 pg/mL High 24.8-81.5 [facility] Comment on above: Result Comment: Perf ormed at: BN - [facility] [address] [id number] Drill Grinder: Dinora Alvarenga MD, Phone: [phone] PERFORMED BY: [address] [place], [place] [id number] PATHOLOGIST [employer] JERRY CASTRO M.D. Performed By: #### H CGQNT #### [facility] [address] Alanine aminotransferase [En zymatic activity/volume] in Serum or PlasmaOrdered By: Latrice Sepulveda on 06-06-2023 ALT [Catalytic activity/Vol] 19 U/L 7-52 [facility] Albumin [Mass/volume] in Ser um or Plasma by Bromocresol green (BCG) dye binding methoOrdered By: Latrice Sepulveda on 06-06-2023 Albumin BCG dye [Mass/Vol] 3.5 g/dL 3.5-5.7 [facility] Alkaline phosphatase [Enzyma tic activity/volume] in Serum or PlasmaOrdered By: Latrice Sepulveda on 06-06-2023 ALP [Catalytic activity/Vol] 84 U/L 34-104 [facility] Aspartate aminotransferase [ Enzymatic activity/volume] in Serum or PlasmaOrdered By: Latrice Sepulveda on 06-06-2023 AST [Catalytic activity/Vol] 16 U/L 13-39 [facility] Bilirubin.total [Mass/volume ] in Serum or PlasmaOrdered By: Latrice Sepulveda on 06-06-2023 Bilirubin [Mass/Vol] 0.3 mg/dL 0.3-1.0 [facility] Calcium [Mass/volume] in Ser um or PlasmaOrdered By: Latrice Sepulveda on 06-06-2023 Calcium [Mass/Vol] 8.6 mg/dL 8.6-10.3 [facility] Carbon dioxide, total [Moles /volume] in Serum or PlasmaOrdered By: Latrice Sepulveda on 06-06-2023 CO2 [Moles/Vol] 24.8 mmol/L 21.0-31.0 [facility] Chloride [Moles/volume] in S gris or PlasmaOrdered By: Latrice Sepulveda on 06-06-2023 Chloride [Moles/Vol] 107 mmol/L 98-107 [facility] Comprehensive Metabolic Pane mauricio 06-06-2023 Albumin [Mass/Vol] 3.5 g/dL Normal 3.5-5.7 [facility] Comment on above: Performed By: #### H CGQNT #### [facility] [address] [place] [address] [place] Albumin/Globulin [Mass ratio] 1.5 {ratio} Normal [facility] Comment on above: Performed By: #### H CGQNT #### [facility] [address] ALP [Catalytic activity/Vol] 84 U/L Normal 34-104 [facility] Comment on above: Performed By: #### H CGQNT #### [facility] [address] ALT [Catalytic activity/Vol] 19 U/L Normal 7-52 [facility] Comment on above: Performed By: #### H CGQNT #### [facility] [address] [place] [address] Anion gap [Moles/Vol] 9.9 mmol/L Normal 6.0-15.0 [facility] Comment on above: Performed By: #### H CGQNT #### [facility] [address] [place] [address] [place] AST [Catalytic activity/Vol] 16 U/L Normal 13-39 [facility] Comment on above: Performed By: #### H CGQNT #### [facility] [address] Bilirubin [Mass/Vol] 0.3 mg/dL Normal 0.3-1.0 [facility] Comment on above: Performed By: #### H CGQNT #### [facility] [address] [place] [address] [place] Calcium [Mass/Vol] 8.6 mg/dL Normal 8.6-10.3 [facility] Comment on above: Performed By: #### H CGQNT #### [facility] [address] [place] [address] [place] Chloride [Moles/Vol] 107 mmol/L Normal 98-107 [facility] Comment on above: Performed By: #### H CGQNT #### [facility] [address] CO2 [Moles/Vol] 24.8 mmol/L Normal 21.0-31.0 [facility] Comment on above: Performed By: #### H CGQNT #### [address] Creatinine [Mass/Vol] 0.45 mg/dL Low 0.60-1.20 [facility] Comment on above: Performed By: #### H CGQNT #### [place] [address] [place] GFR/1.73 sq M.predicted MDRD (S/P/Bld) [Vol rate/Area] mL/min/{1.73_m2} Normal [facility] Comment on above: Performed By: #### H CGQNT #### [address] Globulin (S) [Mass/Vol] 2.4 g/dL Normal [facility] Comment on above: Performed By: #### H CGQNT #### [address] Glucose [Mass/Vol] 89 mg/dL Normal 70-100 [facility] Comment on above: Result Comment: [facility] Glucose Reference Range is dependent on time and content of last meal. Glucose of more than 200 mg/dL in a nonstressed, ambulatory subject supports the diagnosis of Diabetes Mellitus. ADA recommended reference range Performed By: #### H CGQNT #### [address] Potassium [Moles/Vol] 3.7 mmol/L Normal 3.5-5.1 [facility] Comment on above: Performed By: #### H CGQNT #### [address] Protein [Mass/Vol] 5.9 g/dL Low 6.4-8.9 [facility] Comment on above: Performed By: #### H CGQNT #### [place] [address] [place] Sodium [Moles/Vol] 138 mmol/L Normal 136-145 [facility] Comment on above: Performed By: #### H CGQNT #### [facility] [address] Urea nitrogen [Mass/Vol] 5 mg/dL Low 7-25 [facility] Comment on above: Performed By: #### H CGQNT #### [facility] [address] Creatinine [Mass/volume] in Serum or PlasmaOrdered By: Latrice Sepulveda on 06-06-2023 Creatinine [Mass/Vol] 0.45 mg/dL 0.60-1.20 [facility] Globulin Calc (S) [Mass/Vol] Ordered By: Latrice Sepulveda on 06-06-2023 Globulin (S) [Mass/Vol] 2.4 g/dL [facility] Glucose [Mass/volume] in Ser um or PlasmaOrdered [...] 06-06-2023 Estimated GFR (CKD-EPI) > 60.0 mL/Min [facility] Creatinine Clearance (Chem N/A [facility] Parathyrin.intact [Mass/volu me] in Serum or PlasmaOrdered By: Latrice Sepulveda on 06-06-2023 Parathyrin.intact [Mass/Vol] 45.8 pg/mL [facility] Parathyroid Hormone Intacton 06-06-2023 Parathyroid Hormone Intact 45.8 pg/mL Normal [facility] Comment on above: Result Comment: PERF ORMED BY: [facility] [address] [place] [address] PATHOLOGIST [employer] JERRY CASTRO M.D. Performed By: #### P TH, CMP, [id number] #### [facility] [address] #### [id number] #### [facility] , Potassium [Moles/volume] in Serum or PlasmaOrdered By: Latrice Sepulveda on 06-06-2023 Potassium [Moles/Vol] 3.7 mmol/L 3.5-5.1 [facility] Protein [Mass/volume] in Ser um or PlasmaOrdered By: Latrice Sepulveda on 06-06-2023 Protein [Mass/Vol] 5.9 g/dL 6.4-8.9 [facility] Serum or plasma albumin/glob ulin mass ratioOrdered By: Latrice Sepulveda on 06-06-2023 Albumin/Globulin [Mass ratio] 1.5 {ratio} [facility] Serum or plasma anion gap de terminationOrdered By: Latrice Sepulveda on 06-06-2023 Anion gap [Moles/Vol] 9.9 mmol/L 6.0-15.0 [facility] Serum or plasma calcitriol m easurement (mass/volume)Ordered By: Latrice Sepulveda on 06-06-2023 1,25-dihydroxyvitamin D3 [Mass/Vol] 123.0 pg/mL 24.8-81.5 [facility] Comment on above: Performed at: - [address] [id number] Director: Dinora Alvarenga MD, Phone: [phone] Sodium [Moles/volume] in Ser um or PlasmaOrdered By: Latrice Sepulveda on 06-06-2023 Sodium [Moles/Vol] 138 mmol/L 136-145 [facility] Urea nitrogen [Mass/volume] in Serum or PlasmaOrdered By: Latrice Sepulveda on 06-06-2023 Urea nitrogen [Mass/Vol] 5 mg/dL 7-25 [facility] Vitamin D 25 Hydroxy Totalon 06-06-2023 Vitamin D 25 Hydroxy Total 22.4 ng/mL Low 30-100 [facility] Comment on above: Result Comment: HARVINDER MIN D STATUS 25(OH)VITAMIN D RANGE (ng/mL) Deficient <20 Insufficient 20 to <30 Sufficient 30 to 100 Reference: Lino Pena, Gildardo MARTELL, et al. Evaluation,treatment, and prevention of vitamin D deficiency; an Endocrine Society clinical practice guideline. JCEM. 2010; 96(7):1911-. PERFORMED BY: [address] [address] PATHOLOGIST [employer] JERRY CASTRO M.D. Performed By: #### H CGQNT #### [facility] [address] [place] [id number] [facility] Vitamin D+Metabolites [Mass/ volume] in Serum or PlasmaOrdered By: Latrice Sepulveda on 06-06-2023 Vitamin D+Metabolites [Mass/Vol] 22.4 ng/mL 30-100 [facility] Comment on above: VITAMIN D STATUS 25( [place])VITAMIN D RANGE (ng/mL) Deficient <20 Insufficient 20 to <30Sufficient 30 to 100Reference: Lino Pena Bischoff-Ferrari HA, et al. Evaluation,treatment, and prevention of vitamin D deficiency; an Endocrine Society clinical practice guideline. JCEM. 2010; 96(7):1911-30. Vitamin D 25 Hydroxy Totalon 05-06-2023 Vitamin D 25 Hydroxy Total 21.0 ng/mL Low 30-100 [facility] Comment on above: Order Comment: NON F ASTING Result Comment: HARVINDER MIN D STATUS 25(OH)VITAMIN D RANGE (ng/mL) Deficient <20 Insufficient 20 to <30 Sufficient 30 to 100 Reference: Lino Pena Bischoff-Ferrari HA, et al. Evaluation,treatment, and prevention of vitamin D deficiency; an Endocrine Society clinical practice guideline. JCEM. 2010; 96(7):1911-30. PERFORMED BY: [address] [address] PATHOLOGIST [employer] JERRY CASTRO M.D. Performed By: #### V [id number] #### [facility] [address] [place] [address] [facility] Vitamin D+Metabolites [Mass/ volume] in Serum or PlasmaOrdered By: Page eastman 05-06-2023 Vitamin D+Metabolites [Mass/Vol] 21.0 ng/mL 30-100 [facility] Comment on above: VITAMIN D STATUS [...] 01-24-2023 ALT [Catalytic activity/Vol] 20 U/L 7-52 [facility] Albumin [Mass/volume] in Ser um or Plasma by Bromocresol green (BCG) dye binding methoOrdered By: Sarmad Luque on 01-24-2023 Albumin BCG dye [Mass/Vol] 4.7 g/dL 3.5-5.7 [facility] Alkaline phosphatase [Enzyma tic activity/volume] in Serum or PlasmaOrdered By: Sarmad Luque on 01-24-2023 ALP [Catalytic activity/Vol] 71 U/L 34-104 [facility] Aspartate aminotransferase [ Enzymatic activity/volume] in Serum or PlasmaOrdered By: Sarmad Luque on 01-24-2023 AST [Catalytic activity/Vol] 14 U/L 13-39 [facility] Automated erythrocytes count in urine sediment (number/area)Ordered By: Sarmad Luque on 01-24-2023 RBC Auto (Urine sed) [#/Area] 20-49 [HPF] 0-4 [facility] Automated leukocytes count i n urine sediment (number/area)Ordered By: Sarmad Luque on 01-24-2023 WBC Auto (Urine sed) [#/Area] 1-2 [HPF] 0-4 [facility] Basic Metabolic Panelon 01-07 Anion gap [Moles/Vol] 11.4 mmol/L Normal 6.0-15.0 [facility] Comment on above: Performed By: #### C BC, HEPATIC, BMP, LIPASE #### [address] [place] [address] [place] Calcium [Mass/Vol] 9.0 mg/dL Normal 8.6-10.3 [facility] Comment on above: Performed By: #### C BC, HEPATIC, BMP, LIPASE #### [facility] [address] [place] [address] [place] Chloride [Moles/Vol] 105 mmol/L Normal 98-107 [facility] Comment on above: Performed By: #### C BC, HEPATIC, BMP, LIPASE #### [facility] [address] [place] [address] [place] CO2 [Moles/Vol] 25.0 mmol/L Normal 21.0-31.0 [facility] Comment on above: Performed By: #### C BC, HEPATIC, BMP, LIPASE #### [facility] [address] Creatinine [Mass/Vol] 0.67 mg/dL Normal 0.60-1.20 [facility] Comment on above: Performed By: #### C BC, HEPATIC, BMP, LIPASE #### [facility] [address] [place] [address] [place] Creatinine Clr Calc Pharmacy 103.40 [facility] Comment on above: Performed By: #### C BC, HEPATIC, BMP, LIPASE #### [facility] [address] [place] [address] [place] GFR/1.73 sq M.predicted MDRD (S/P/Bld) [Vol rate/Area] mL/min/{1.73_m2} [facility] Comment on above: Performed By: #### C BC, HEPATIC, BMP, LIPASE #### [facility] [address] [place] [address] [place] Glucose [Mass/Vol] 89 mg/dL Normal 70-100 [facility] Comment on above: Result Comment: [place] Glucose Reference Range is dependent on time and content of last meal. Glucose of more than 200 mg/dL in a nonstressed, ambulatory subject supports the diagnosis of Diabetes Mellitus. ADA recommended reference range Performed By: #### C BC, HEPATIC, BMP, LIPASE #### [facility] [address] [place] [address] [place] Potassium [Moles/Vol] 3.4 mmol/L Low 3.5-5.1 [facility] Comment on above: Performed By: #### C BC, HEPATIC, BMP, LIPASE #### [facility] [address] [place] [address] [place] Sodium [Moles/Vol] 138 mmol/L Normal 136-145 [facility] Comment on above: Performed By: #### C BC, HEPATIC, BMP, LIPASE #### [facility] [address] Urea nitrogen [Mass/Vol] 6 mg/dL Low 7-25 [facility] Comment on above: Performed By: #### C BC, HEPATIC, BMP, LIPASE #### [facility] [address] [place] [address] [place] Basophils Auto (Bld) [#/Vol] Ordered By: Sarmad Luque on 01-24-2023 Basophils (Bld) [#/Vol] 0.1 10*3/uL 0.0-0.2 [facility] Basophils/100 WBC Auto (Bld) Ordered By: Sarmad Luque on 01-24-2023 Basophils/100 WBC (Bld) 0.8 % . F [facility] Bilirubin Test strip Ql (U)O rdered By: Sarmad Luque on 01-24-2023 Bilirubin Ql (U) Negative Negative [facility] Bilirubin.direct [Mass/volum e] in Serum or PlasmaOrdered By: Sarmad Luque on 01-24-2023 Bilirubin.direct [Mass/Vol] 0.20 mg/dL 0.03-0.18 [facility] Bilirubin.total [Mass/volume ] in Serum or PlasmaOrdered By: Sarmad Luque on 01-24-2023 Bilirubin [Mass/Vol] 0.9 mg/dL 0.3-1.0 [facility] Calcium [Mass/volume] in Ser um or PlasmaOrdered By: Sarmad Luque on 01-24-2023 Calcium [Mass/Vol] 9.0 mg/dL 8.6-10.3 [facility] Carbon dioxide, total [Moles /volume] in Serum or PlasmaOrdered By: Sarmad Luque on 01-24-2023 CO2 [Moles/Vol] 25.0 mmol/L 21.0-31.0 [facility] Chloride [Moles/volume] in S gris or PlasmaOrdered By: Sarmad Luque on 01-24-2023 Chloride [Moles/Vol] 105 mmol/L 98-107 [facility] Choriogonadotropin.beta subu nit [Units/volume] in Serum or PlasmaOrdered By: Sarmad Luque on 01-24-2023 HCG.beta subunit Qn 120.64 m[IU]/mL [facility] Comment on above: Approximate Approxim ate hCG Gestational Age Range (mIU/ml) (weeks)0.2-1 5-50 1-2 50-500 2-3 100-5,000 3-4 500-10,000 4-5 1,000-50,000 5-6 10,000-100,000 6-8 15,000-200,000 8-12 10,000-100,000 Color Auto (U)Ordered By: Eric red Ene on 01-24-2023 Color (U) Yellow Yellow [facility] Complete Blood Count Auto Di ffon 01-24-2023 Basophils (Bld) [#/Vol] 0.1 10*3/uL Normal 0.0-0.2 [facility] Comment on above: Result Comment: PERF ORMED BY: [place] [address] PATHOLOGIST [employer] JERRY CASTRO M.D. Performed By: #### C BC, HEPATIC, BMP, LIPASE #### [facility] [address] Basophils/100 WBC (Bld) 0.8 % Normal . [facility] Comment on above: Performed By: #### C BC, HEPATIC, BMP, LIPASE #### [facility] [address] Eosinophils (Bld) [#/Vol] 0.1 10*3/uL Normal 0.0-0.45 [facility] Comment on above: Performed By: #### C BC, HEPATIC, BMP, LIPASE #### [facility] [address] Eosinophils/100 WBC (Bld) 1.3 % Normal . [facility] Comment on above: Performed By: #### C BC, HEPATIC, BMP, LIPASE #### [facility] [address] Erythrocyte distribution width (RBC) [Ratio] 13.5 % Normal 11.9-15.3 [facility] Comment on above: Performed By: #### C BC, HEPATIC, BMP, LIPASE #### [address] Hematocrit (Bld) [Volume fraction] 41.4 % Normal 34.0-46.4 [facility] Comment on above: Performed By: #### C BC, HEPATIC, BMP, LIPASE #### [address] Hemoglobin (Bld) [Mass/Vol] 14.1 g/dL Normal 11.8-15.4 [facility] Comment on above: Performed By: #### C BC, HEPATIC, BMP, LIPASE #### [address] Lymphocytes (Bld) [#/Vol] 2.4 10*3/uL Normal 1.00-4.8 [facility] Comment on above: Performed By: #### C BC, HEPATIC, BMP, LIPASE #### [address] Lymphocytes/100 WBC (Bld) 31.9 % Normal . [facility] Comment on above: Performed By: #### C BC, HEPATIC, BMP, LIPASE #### [address] MCH (RBC) [Entitic mass] 28.8 pg Normal 24.7-34.3 [facility] Comment on above: Performed By: #### C BC, HEPATIC, BMP, LIPASE #### [address] MCV (RBC) [Entitic vol] 84.3 fL Normal 80-100 F [facility] Comment on above: Performed By: #### C BC, HEPATIC, BMP, LIPASE #### [address] Mean Corpuscular HGB Conc 34.1 g/dL Normal 32.0-35.0 [facility] Comment on above: Performed By: #### C BC, HEPATIC, BMP, LIPASE #### [address] Monocytes (Bld) [#/Vol] 0.5 10*3/uL Normal 0.0-0.8 [facility] Comment on above: Performed By: #### C BC, HEPATIC, BMP, LIPASE #### [address] Monocytes/100 WBC (Bld) 17.21 % Normal 0.00-20.00 [facility] Comment on above: Performed By: #### C BC, HEPATIC, BMP, LIPASE #### [address] Monocytes/100 WBC (Bld) 7.3 % Normal . [facility] Comment on above: Performed By: #### C BC, HEPATIC, BMP, LIPASE #### [address] Neutrophils (Bld) [#/Vol] 4.3 10*3/uL Normal 1.8-7.7 [facility] Comment on above: Performed By: #### C BC, HEPATIC, BMP, LIPASE #### [address] Neutrophils/100 WBC (Bld) 58.7 % Normal . [facility] Comment on above: Performed By: #### C BC, HEPATIC, BMP, LIPASE #### [address] NRBC% 0.1 /100{WBC} Normal 0-0.5 [facility] Comment on above: Performed By: #### C BC, HEPATIC, BMP, LIPASE #### [address] Platelet mean volume (Bld) [Entitic vol] 9.2 fL Normal 6.3-10.7 [facility] Comment on above: Performed By: #### C BC, HEPATIC, BMP, LIPASE #### [facility] [address] Platelets (Bld) [#/Vol] 222 10*3/uL Normal 150-450 [facility] Comment on above: Performed By: #### C BC, HEPATIC, BMP, LIPASE #### [facility] [address] RBC (Bld) [#/Vol] 4.91 10*6/uL Normal 3.60-5.00 [facility] Comment on above: Performed By: #### C BC, HEPATIC, BMP, LIPASE #### [address] WBC (Bld) [#/Vol] 7.4 10*3/uL Normal 3.8-11.6 [facility] Comment on above: Performed By: #### C BC, HEPATIC, BMP, LIPASE #### [address] Creatinine [Mass/volume] in Serum or PlasmaOrdered By: Sarmad Luque on 01-24-2023 Creatinine [Mass/Vol] 0.67 mg/dL 0.60-1.20 [facility] Dipstick and Microscopicon 0 01-24-2023 Appearance (U) Cloudy Critically abnormal Clear [facility] Comment on above: Order Comment: Name Collection Type:: Clean-Voided Midstream Performed By: #### U HCG, ADDONUAPLUS #### [facility] [address] [place] [address] [place] Bacteria,Urine None Seen Normal None Seen [facility] Comment on above: Order Comment: Name Collection Type:: Clean-Voided Midstream Performed By: #### U HCG, ADDONUAPLUS #### [facility] [address] [place] [address] [place] Bilirubin,Urine Negative Normal Negative [facility] Comment on above: Order Comment: Name Collection Type:: Clean-Voided Midstream Performed By: #### U HCG, ADDONUAPLUS #### [facility] [address] [place] [address] [place] Color (U) Yellow Normal Yellow [facility] Comment on above: Order Comment: Name Collection Type:: Clean-Voided Midstream Performed By: #### U HCG, ADDONUAPLUS #### [facility] [address] [place] [address] Glucose Ql (U) Normal Normal Normal [facility] Comment on above: Order Comment: Name Collection Type:: Clean-Voided Midstream Performed By: #### U HCG, ADDONUAPLUS #### [facility] [address] [place] [address] [place] Hyaline Casts,Urine 0-8 Normal 0-8 [facility] Comment on above: Order Comment: Name Collection Type:: Clean-Voided Midstream Performed By: #### U HCG, ADDONUAPLUS #### [facility] [address] [place] [address] [place] Ketones Ql (U) Trace High Negative [facility] Comment on above: Order Comment: Name Collection Type:: Clean-Voided Midstream Performed By: #### U HCG, ADDONUAPLUS #### [facility] [address] [place] [address] Leukocyte esterase Test strip Ql (U) 1+ High Negative [facility] Comment on above: Order Comment: Name Collection Type:: Clean-Voided Midstream Performed By: #### U HCG, ADDONUAPLUS #### [facility] [address] [place] [address] [place] Nitrite,Urine Negative Normal Negative [facility] Comment on above: Order Comment: Name Collection Type:: Clean-Voided Midstream Performed By: #### U HCG, ADDONUAPLUS #### [facility] [address] [place] [address] [place] Occult Blood,Urine 2+ High Negative [facility] Comment on above: Order Comment: Name Collection Type:: Clean-Voided Midstream Performed By: #### U HCG, ADDONUAPLUS #### [facility] [address] [place] [address] pH (U) 6.0 [pH] Normal 5.0-9.0 [facility] Comment on above: Order Comment: Name Collection Type:: Clean-Voided Midstream Performed By: #### U HCG, ADDONUAPLUS #### [address] Protein,Urine Trace High Negative [facility] Comment on above: Order Comment: Name Collection Type:: Clean-Voided Midstream Performed By: #### U HCG, ADDONUAPLUS #### [address] RBC,Urine 20-49 High 0-4 [facility] Comment on above: Order Comment: Name Collection Type:: Clean-Voided Midstream Performed By: #### U HCG, ADDONUAPLUS #### [address] Specificy [place],Urine 1.022 Normal 1.001-1.030 [facility] Comment on above: Order Comment: Name Collection Type:: Clean-Voided Midstream Performed By: #### U HCG, ADDONUAPLUS #### [address] Squamous Epithelial Cell,Urine 5-9 High 0-2 [facility] Comment on above: Order Comment: Name Collection Type:: Clean-Voided Midstream Performed By: #### U HCG, ADDONUAPLUS #### [facility] [address] [place] [address] Urobilinogen,Urine Normal Normal Normal [facility] Comment on above: Order Comment: Name Collection Type:: Clean-Voided Midstream Performed By: #### U HCG, ADDONUAPLUS #### [address] WBC,Urine 1-2 Normal 0-4 [facility] Comment on above: Order Comment: Name Collection Type:: Clean-Voided Midstream Performed By: #### U HCG, ADDONUAPLUS #### [address] Eosinophils Auto (Bld) [#/Vo l]Ordered By: Sarmad Luque on 01-24-2023 Eosinophils (Bld) [#/Vol] 0.1 10*3/uL 0.0-0.45 [facility] Eosinophils/100 WBC Auto (Bl d)Ordered By: Sarmad Luque on 01-24-2023 Eosinophils/100 WBC (Bld) 1.3 % . [facility] Erythrocyte distribution wid th Auto (RBC) [Ratio]Ordered By: Sarmad Luque on 01-24-2023 Erythrocyte distribution width (RBC) [Ratio] 13.5 % 11.9-15.3 [facility] Globulin Calc (S) [Mass/Vol] Ordered By: Sarmad Luque on 01-24-2023 Globulin (S) [Mass/Vol] 2.7 g/dL [facility] Glucose [Mass/volume] in Ser um or PlasmaOrdered [...] 01-24-2023 HCG ( test) Ql (U) Positive [facility] HCG,Quantitativeon 3 HCG,Quantitative 120.64 m[iU]/mL Normal [facility] Comment on above: Result Comment: Appr oximate Approximate hCG Gestational Age Range (mIU/ml) (weeks) 0.2-1 5-50 1-2 50-500 2-3 100-5,000 3-4 500-10,000 4-5 1,000-50,000 5-6 10,000-100,000 6-8 15,000-200,000 8-12 10,000-100,000 PERFORMED BY: [facility] [place] [address] PATHOLOGIST [employer] JERRY CASTRO M.D. Performed By: #### H CGQNT #### [place] [address] [place] HCG,Urineon 01-24-2023 Beta HCG ( test) Ql (U) Positive High [facility] Comment on above: Order Comment: Name Collection Type:: Clean-Voided Midstream Result Comment: PERF ORMED BY: [place] [address] PATHOLOGIST [employer] JERRY CASTRO M.D. Performed By: #### U HCG, ADDONUAPLUS #### [address] Hematocrit Auto (Bld) [Volum e fraction]Ordered By: Sarmad Luque on 01-24-2023 Hematocrit (Bld) [Volume fraction] 41.4 % 34.0-46.4 [facility] Hemoglobin [Mass/volume] in BloodOrdered By: Sarmad Luque on 01-24-2023 Hemoglobin (Bld) [Mass/Vol] 14.1 g/dL 11.8-15.4 [facility] Hepatic Panelon 01-24-2023 Albumin [Mass/Vol] 4.7 g/dL Normal 3.5-5.7 [facility] Comment on above: Performed By: #### C BC, HEPATIC, BMP, LIPASE #### [address] Albumin/Globulin [Mass ratio] 1.7 {ratio} Normal [facility] Comment on above: Performed By: #### C BC, HEPATIC, BMP, LIPASE #### [address] ALP [Catalytic activity/Vol] 71 U/L Normal 34-104 [facility] Comment on above: Performed By: #### C BC, HEPATIC, BMP, LIPASE #### [address] ALT [Catalytic activity/Vol] 20 U/L Normal 7-52 [facility] Comment on above: Performed By: #### C BC, HEPATIC, BMP, LIPASE #### [address] [place] [address] [place] AST [Catalytic activity/Vol] 14 U/L Normal 13-39 [facility] Comment on above: Performed By: #### C BC, HEPATIC, BMP, LIPASE #### [facility] [address] Bilirubin [Mass/Vol] 0.9 mg/dL Normal 0.3-1.0 [facility] Comment on above: Performed By: #### C BC, HEPATIC, BMP, LIPASE #### [address] Bilirubin,Indirect 0.7 mg/dL Normal [facility] Comment on above: Performed By: #### C BC, HEPATIC, BMP, LIPASE #### [address] Bilirubin.indirect [Mass/Vol] 0.20 mg/dL High 0.03-0.18 [facility] Comment on above: Performed By: #### C BC, HEPATIC, BMP, LIPASE #### [address] Globulin (S) [Mass/Vol] 2.7 g/dL Normal [facility] Comment on above: Performed By: #### C BC, HEPATIC, BMP, LIPASE #### [address] Protein [Mass/Vol] 7.4 g/dL Normal 6.4-8.9 [facility] Comment on above: Performed By: #### C BC, HEPATIC, BMP, LIPASE #### [address] Ketones Auto test strip (U) [Mass/Vol]Ordered By: Sarmad Luque on 01-24-2023 Ketones (U) [Mass/Vol] Trace Negative [facility] - UrinalysisOrder ed By: Sarmad Luque on 01-24-2023 Hyaline casts LM Ql (Urine sed) 0-8 [LPF] 0-8 [facility] Leukocytes [#/volume] correc mague for nucleated erythrocytes in Blood by Automated counOrdered By: Sarmad Luque on 01-24-2023 WBC corrected for nucl RBC Auto (Bld) [#/Vol] 7.4 10*3/uL 3.8-11.6 [facility] Lipaseon 01-24-2023 Lipase [Catalytic activity/Vol] 47.0 U/L Normal 11.0-82.0 [facility] Comment on above: Result Comment: PERF ORMED BY: [facility] [address] [place] [address] PATHOLOGIST [employer] JERRY CASTRO M.D. Performed By: #### C BC, HEPATIC, BMP, LIPASE #### [facility] [address] Lipase [Enzymatic activity/v olume] in Serum or PlasmaOrdered By: Sarmad Luque on 01-24-2023 Lipase [Catalytic activity/Vol] 47.0 U/L 11.0-82.0 [facility] Lymphocytes Auto (Bld) [#/Vo l]Ordered By: Sarmad Luque on 01-24-2023 Lymphocytes (Bld) [#/Vol] 2.4 10*3/uL 1.00-4.8 [facility] Lymphocytes/100 WBC Auto (Bl d)Ordered By: Sarmad Luque on 01-24-2023 Lymphocytes/100 WBC (Bld) 31.9 % . [facility] MCH Auto (RBC) [Entitic mass ]Ordered By: Sarmad Luque on 01-24-2023 MCH (RBC) [Entitic mass] 28.8 pg 24.7-34.3 [facility] MCHC Auto (RBC) [Mass/Vol]Or dered By: Sarmad Luque on 01-24-2023 MCHC (RBC) [Mass/Vol] 34.1 g/dL 32.0-35.0 [facility] MCV Auto (RBC) [Entitic vol] Ordered By: Sarmad Luque on 01-24-2023 MCV (RBC) [Entitic vol] 84.3 fL 80-100 [facility] Monocyte distribution width [Entitic volume] in Blood by AutomatedOrdered By: Sarmad Luque on 01-24-2023 Monocyte distribution width Auto (Bld) [Entitic vol] 17.21 % 0.00-20.00 [facility] Monocytes Auto (Bld) [#/Vol] Ordered By: Sarmad Luque on 01-24-2023 Monocytes (Bld) [#/Vol] 0.5 10*3/uL 0.0-0.8 [facility] Monocytes/100 WBC Auto (Bld) Ordered By: Sarmad Luque on 01-24-2023 Monocytes/100 WBC (Bld) 7.3 % . [facility] Neutrophils Auto (Bld) [#/Vo l]Ordered By: Sarmad Luque on 01-24-2023 Neutrophils (Bld) [#/Vol] 4.3 10*3/uL 1.8-7.7 [facility] Neutrophils/100 WBC Auto (Bl d)Ordered By: Sarmad Luque on 01-24-2023 Neutrophils/100 WBC (Bld) 58.7 % . [facility] Nitrite Test strip Ql (U)Ord ered By: Sarmad Luque on 01-24-2023 Nitrite Ql (U) Negative Negative [facility] No Panel InformationOrdered By: Sarmad Luque on 01-24-2023 Estimated GFR (CKD-EPI) > 60.0 mL/Min [facility] Creatinine Clearance (Chem 103.40 [facility] Nucleated erythrocytes [Pres ence] in Blood by Automated countOrdered By: Sarmad Luque on 01-24-2023 Nucleated RBC Auto Ql (Bld) 0.1 /100{WBC} 0-0.5 [facility] Platelet mean volume Auto (B ld) [Entitic vol]Ordered By: Sarmad Luque on 01-24-2023 Platelet mean volume (Bld) [Entitic vol] 9.2 fL 6.3-10.7 [facility] Platelets Auto (Bld) [#/Vol] Ordered By: Sarmad Luque on 01-24-2023 Platelets (Bld) [#/Vol] 222 10*3/uL 150-450 [facility] Potassium [Moles/volume] in Serum or PlasmaOrdered By: Sarmad Luque on 01-24-2023 Potassium [Moles/Vol] 3.4 mmol/L 3.5-5.1 [facility] Protein Auto test strip (U) [Mass/Vol]Ordered By: Sarmad Luque on 01-24-2023 Protein (U) [Mass/Vol] Trace mg/dL Negative [facility] Protein [Mass/volume] in Ser um or PlasmaOrdered By: Sarmad Luque on 01-24-2023 Protein [Mass/Vol] 7.4 g/dL 6.4-8.9 [facility] RBC Auto (Bld) [#/Vol]Ordere d By: Sarmad Luque on 01-24-2023 RBC (Bld) [#/Vol] 4.91 10*6/uL 3.60-5.00 [facility] Serum or plasma albumin/glob ulin mass ratioOrdered By: Sarmad Luque on 01-24-2023 Albumin/Globulin [Mass ratio] 1.7 {ratio} [facility] Serum or plasma anion gap de terminationOrdered By: Sarmad Luque on 01-24-2023 Anion gap [Moles/Vol] 11.4 mmol/L 6.0-15.0 [facility] Serum or plasma non-glucuron idated bilirubin measurement (mass/volume)Ordered By: Sarmad Luque on 01-24-2023 Bilirubin.indirect [Mass/Vol] 0.7 mg/dL [facility] Sodium [Moles/volume] in Ser um or PlasmaOrdered By: Sarmad Luque on 01-24-2023 Sodium [Moles/Vol] 138 mmol/L 136-145 [facility] Specific gravity Auto test s trip (U) [Rel density]Ordered By: Sarmad Luque on 01-24-2023 Specific gravity (U) [Rel density] 1.022 1.001-1.030 [facility] Squamous epithelial cells de tection in urine sediment by light microscopyOrdered By: Sarmad Luque on 01-24-2023 Epithelial cells.squamous LM Ql (Urine sed) 5-9 [HPF] 0-2 [facility] US OB transvaginalon 023 US OB transvaginal [facility] [place] [address] Ultrasound Report Signed Patient: Elyssa Smith MR#: [id number] : 1990 Acct:[id number] Age/Sex: 32 / F ADM Date: 01/24/23 Loc: ER Room: Type: [facility] ER Attending Dr: Ordering Provider: Sarmad Luque DO Date of Service: 01/24/23 US/US OB <= 14 weeks fetus: Abdominal Pain ([id number]) US/US OB transvaginal: PAIN Copies to: Sarmad [...] Carrillo Ziegler M.D.01/24/2023 2:06 PM Dictation Location: [place] [address] Tech: Ashely Doll Transcribed By: SILVINA 01/24/23 140 Dictated By: Carrillo Ziegler II, MD 01/24/23 1401 Signed By: 01/24/23 140 [facility] US renal BIon 01-24-2023 US renal BI [facility] [place] [address] [place], [place] [id number] Ultrasound Report Signed Patient: Elyssa Smith MR#: [id number] : 1990 Acct:[id number] Age/Sex: 32 / F ADM Date: 01/24/23 Loc: ER Room: Type: [facility] ER Attending Dr: Ordering Provider: Sarmad Luque DO Date of Service: 01/24/23 US/US renal BI: flank pain Hx kidney stone R flank Copies to: Saramd Luque DO US renal BI 01/24/2023 10:53 [...] Carrillo Ziegler M.D.01/24/2023 2:12 PM Dictation Location: [place] [address] Tech: Ashely Doll Transcribed By: SILVINA 01/24/23 1412 Dictated By: Carrillo Ziegler II, MD 01/24/23 1410 Signed By: 01/24/23 141 [facility] Urea nitrogen [Mass/volume] in Serum or PlasmaOrdered By: Sarmad Luque on 01-24-2023 Urea nitrogen [Mass/Vol] 6 mg/dL 7-25 [facility] Urine bacteria detection by automated methodOrdered By: Sarmad Luque on 01-24-2023 Bacteria Auto Ql (U) None seen None Seen [facility] Urine clarity by refractomet ry automatedOrdered By: Sarmad Ene on 01-24-2023 Clarity Refractometry automated (U) Cloudy Clear [facility] Urine glucose measurement by automated test strip (mass/volume)Ordered By: Sarmad Luuqe on 01-24-2023 Glucose Auto test strip (U) [Mass/Vol] Normal mg/dL Normal [facility] Urine hemoglobin detection b y automated test stripOrdered By: Sarmad Luque on 01-24-2023 Hemoglobin Auto test strip Ql (U) 2+ Negative [facility] Urine leukocyte esterase det ection by automated test stripOrdered By: Sarmad Luque on 01-24-2023 Leukocyte esterase Auto test strip Ql (U) 1+ Negative [facility] Urobilinogen Auto test strip (U) [Mass/Vol]Ordered By: Sarmad Luque on 01-24-2023 Urobilinogen (U) [Mass/Vol] Normal mg/dL Normal [facility] WBC Auto (Bld) [#/Vol]Ordere d By: Sarmad Luque on 01-24-2023 WBC (Bld) [#/Vol] 7.4 10*3/uL 3.8-11.6 [facility] pH Auto test strip (U)Ordere d By: Sarmad Luque on 01-24-2023 pH (U) 6.0 [pH] 5.0-9.0 [facility] ALFRED with Reflexon 10-27-2022 ALFRED with Reflex Negative Normal Negative [facility] Comment on above: Result Comment: Perf ormed at: CB - [facility] [address] [id number] Drill Grinder: Ismael Suh PhD, Phone: [phone] PERFORMED BY: [address] [address] PATHOLOGIST [employer] JERRY CASTRO M.D. Performed By: #### H CGQNT #### [facility] [address] Alanine aminotransferase [En zymatic activity/volume] in Serum or PlasmaOrdered By: Page Magaña on 10-27-2022 ALT [Catalytic activity/Vol] 30 U/L 7-52 [facility] Albumin [Mass/volume] in Ser um or Plasma by Bromocresol green (BCG) dye binding methoOrdered By: Page Magaña on 10-27-2022 Albumin BCG dye [Mass/Vol] 4.2 g/dL 3.5-5.7 [facility] Alkaline phosphatase [Enzyma tic activity/volume] in Serum or PlasmaOrdered By: Page Magaña on 10-27-2022 ALP [Catalytic activity/Vol] 86 U/L 34-104 [facility] Aspartate aminotransferase [ Enzymatic activity/volume] in Serum or PlasmaOrdered By: Page Magaña on 10-27-2022 AST [Catalytic activity/Vol] 17 U/L 13-39 [facility] Basophils Auto (Bld) [#/Vol] Ordered By: Page Magaña on 10-27-2022 Basophils (Bld) [#/Vol] 0.1 10*3/uL 0.0-0.2 [facility] Basophils/100 WBC Auto (Bld) Ordered By: Page Magaña on 10-27-2022 Basophils/100 WBC (Bld) 0.6 % . [facility] Bilirubin.total [Mass/volume ] in Serum or PlasmaOrdered By: Page Magaña 10-27-2022 Bilirubin [Mass/Vol] 0.6 mg/dL 0.3-1.0 [facility] Calcium [Mass/volume] in Ser um or PlasmaOrdered By: Page Magaña 10-27-2022 Calcium [Mass/Vol] 9.0 mg/dL 8.6-10.3 [facility] Carbon dioxide, total [Moles /volume] in Serum or PlasmaOrdered By: Page Magaña on 10-27-2022 CO2 [Moles/Vol] 24.7 mmol/L 21.0-31.0 [facility] Chloride [Moles/volume] in S gris or PlasmaOrdered By: Page Magaña on 10-27-2022 Chloride [Moles/Vol] 107 mmol/L 98-107 [facility] Cholesterol [Mass/volume] in Serum or PlasmaOrdered By: Page Magaña on 10-27-2022 Cholesterol [Mass/Vol] 209 mg/dL 140-200 [facility] Comment on above: Chol less than 200 m g/dl low riskChol 201-239 mg/dl borderline riskChol 240 mg/dl and greater high risk Cholesterol in LDL Calc [Mas s/Vol]Ordered By: Page Magaña on 10-27-2022 Cholesterol in LDL [Mass/Vol] 155 mg/dL 0-100 [facility] Comment on above: LDL ATP III CLASSIFI CATIONLDL less than 100 mg/dL OptimalLDL 100-129 mg/dL Near or above optimalLDL 130-159 mg/dL Borderline highLDL 160-189 mg/dL HighLDL greater than 189 mg/dL Very high Cholesterol in VLDL Calc [Ma ss/Vol]Ordered By: Page Magaña on 10-27-2022 Cholesterol in VLDL [Mass/Vol] 11 mg/dL [facility] Complete Blood Count Auto Di ffon 10-27-2022 Basophils (Bld) [#/Vol] 0.1 10*3/uL Normal 0.0-0.2 [facility] Comment on above: Result Comment: PERF ORMED BY: [place] [address] PATHOLOGIST [employer] JERRY CASTRO M.D. Performed By: #### H CGQNT #### [facility] [address] [place] [address] [place] Basophils/100 WBC (Bld) 0.6 % Normal . [facility] Comment on above: Performed By: #### H CGQNT #### [facility] [address] [place] [address] [place] Eosinophils (Bld) [#/Vol] 0.1 10*3/uL Normal 0.0-0.45 [facility] Comment on above: Performed By: #### H CGQNT #### [facility] [address] [place] [address] [place] Eosinophils/100 WBC (Bld) 1.6 % Normal . [facility] Comment on above: Performed By: #### H CGQNT #### [address] Erythrocyte distribution width (RBC) [Ratio] 14.4 % Normal 11.9-15.3 [facility] Comment on above: Performed By: #### H CGQNT #### [address] Hematocrit (Bld) [Volume fraction] 40.5 % Normal 34.0-46.4 [facility] Comment on above: Performed By: #### H CGQNT #### [address] Hemoglobin (Bld) [Mass/Vol] 13.5 g/dL Normal 11.8-15.4 [facility] Comment on above: Performed By: #### H CGQNT #### [address] Lymphocytes (Bld) [#/Vol] 2.8 10*3/uL Normal 1.00-4.8 [facility] Comment on above: Performed By: #### H CGQNT #### [address] Lymphocytes/100 WBC (Bld) 30.3 % Normal . [facility] Comment on above: Performed By: #### H CGQNT #### [address] MCH (RBC) [Entitic mass] 28.1 pg Normal 24.7-34.3 [facility] Comment on above: Performed By: #### H CGQNT #### [address] MCV (RBC) [Entitic vol] 84.6 fL Normal 80-100 F [facility] Comment on above: Performed By: #### H CGQNT #### [address] Mean Corpuscular HGB Conc 33.3 g/dL Normal 32.0-35.0 [facility] Comment on above: Performed By: #### H CGQNT #### [facility] [address] [place] [address] [place] Monocytes (Bld) [#/Vol] 0.6 10*3/uL Normal 0.0-0.8 [facility] Comment on above: Performed By: #### H CGQNT #### [facility] [address] [place] [address] [place] Monocytes/100 WBC (Bld) 6.7 % Normal . [facility] Comment on above: Performed By: #### H CGQNT #### [facility] [address] Neutrophils (Bld) [#/Vol] 5.5 10*3/uL Normal 1.8-7.7 [facility] Comment on above: Performed By: #### H CGQNT #### [facility] [address] [place] [address] [place] Neutrophils/100 WBC (Bld) 60.8 % Normal . [facility] Comment on above: Performed By: #### H CGQNT #### [facility] [address] [place] [address] [place] NRBC% 0.3 /100{WBC} Normal 0-0.5 [facility] Comment on above: Performed By: #### H CGQNT #### [facility] [address] [place] [address] [place] Platelet mean volume (Bld) [Entitic vol] 8.9 fL Normal 6.3-10.7 [facility] Comment on above: Performed By: #### H CGQNT #### [facility] [address] [place] [address] [place] Platelets (Bld) [#/Vol] 246 10*3/uL Normal 150-450 [facility] Comment on above: Performed By: #### H CGQNT #### [facility] [address] [place] [address] [place] RBC (Bld) [#/Vol] 4.79 10*6/uL Normal 3.60-5.00 [facility] Comment on above: Performed By: #### H CGQNT #### [facility] [address] [place] [address] WBC (Bld) [#/Vol] 9.1 10*3/uL Normal 3.8-11.6 [facility] Comment on above: Performed By: #### H CGQNT #### [facility] [address] [place] [address] Comprehensive Metabolic Pane mauricio 10-27-2022 Albumin [Mass/Vol] 4.2 g/dL Normal 3.5-5.7 [facility] Comment on above: Order Comment: PT IS FASTING Performed By: #### H CGQNT #### [address] Albumin/Globulin [Mass ratio] 1.8 {ratio} Normal [facility] Comment on above: Order Comment: PT IS FASTING Performed By: #### H CGQNT #### [address] ALP [Catalytic activity/Vol] 86 U/L Normal 34-104 [facility] Comment on above: Order Comment: PT IS FASTING Performed By: #### H CGQNT #### [address] ALT [Catalytic activity/Vol] 30 U/L Normal 7-52 [facility] Comment on above: Order Comment: PT IS FASTING Performed By: #### H CGQNT #### [facility] [address] [place] [address] Anion gap [Moles/Vol] 10.6 mmol/L Normal 6.0-15.0 [facility] Comment on above: Order Comment: PT IS FASTING Performed By: #### H CGQNT #### [address] AST [Catalytic activity/Vol] 17 U/L Normal 13-39 [facility] Comment on above: Order Comment: PT IS FASTING Performed By: #### H CGQNT #### [address] [place] [address] [place] Bilirubin [Mass/Vol] 0.6 mg/dL Normal 0.3-1.0 [facility] Comment on above: Order Comment: PT IS FASTING Performed By: #### H CGQNT #### [facility] [address] Calcium [Mass/Vol] 9.0 mg/dL Normal 8.6-10.3 [facility] Comment on above: Order Comment: PT IS FASTING Performed By: #### H CGQNT #### [facility] [address] Chloride [Moles/Vol] 107 mmol/L Normal 98-107 [facility] Comment on above: Order Comment: PT IS FASTING Performed By: #### H CGQNT #### [facility] [address] [place] [address] CO2 [Moles/Vol] 24.7 mmol/L Normal 21.0-31.0 [facility] Comment on above: Order Comment: PT IS FASTING Performed By: #### H CGQNT #### [facility] [address] [place] [address] [place] Creatinine [Mass/Vol] 0.62 mg/dL Normal 0.60-1.20 [facility] Comment on above: Order Comment: PT IS FASTING Performed By: #### H CGQNT #### [facility] [address] [place] [address] [place] GFR/1.73 sq M.predicted MDRD (S/P/Bld) [Vol rate/Area] mL/min/{1.73_m2} Normal [facility] Comment on above: Order Comment: PT IS FASTING Performed By: #### H CGQNT #### [facility] [address] [place] [address] [place] Globulin (S) [Mass/Vol] 2.3 g/dL Normal [facility] Comment on above: Order Comment: PT IS FASTING Performed By: #### H CGQNT #### [facility] [address] [place] [address] [place] Glucose [Mass/Vol] 93 mg/dL Normal 70-100 [facility] Comment on above: Order Comment: PT IS FASTING Result Comment: [facility] Glucose Reference Range is dependent on time and content of last meal. Glucose of more than 200 mg/dL in a nonstressed, ambulatory subject supports the diagnosis of Diabetes Mellitus. ADA recommended reference range Performed By: #### H CGQNT #### [facility] [address] [place] [address] Potassium [Moles/Vol] 4.3 mmol/L Normal 3.5-5.1 [facility] Comment on above: Order Comment: PT IS FASTING Performed By: #### H CGQNT #### [facility] [address] [place] [address] Protein [Mass/Vol] 6.5 g/dL Normal 6.4-8.9 [facility] Comment on above: Order Comment: PT IS FASTING Performed By: #### H CGQNT #### [facility] [address] [place] [address] Sodium [Moles/Vol] 138 mmol/L Normal 136-145 [facility] Comment on above: Order Comment: PT IS FASTING Performed By: #### H CGQNT #### [facility] [address] [place] [address] Urea nitrogen [Mass/Vol] 12 mg/dL Normal 7-25 [facility] Comment on above: Order Comment: PT IS FASTING Performed By: #### H CGQNT #### [facility] [address] [place] [address] Creatinine [Mass/volume] in Serum or PlasmaOrdered By: Page Magaña on 10-27-2022 Creatinine [Mass/Vol] 0.62 mg/dL 0.60-1.20 [facility] Eosinophils Auto (Bld) [#/Vo l]Ordered By: Page Magaña on 10-27-2022 Eosinophils (Bld) [#/Vol] 0.1 10*3/uL 0.0-0.45 [facility] Eosinophils/100 WBC Auto (Bl d)Ordered By: Page Magaña on 10-27-2022 Eosinophils/100 WBC (Bld) 1.6 % . [facility] Erythrocyte distribution wid th Auto (RBC) [Ratio]Ordered By: Page Magaña on 10-27-2022 Erythrocyte distribution width (RBC) [Ratio] 14.4 % 11.9-15.3 [facility] Globulin Calc (S) [Mass/Vol] Ordered By: Page Magaña on 10-27-2022 Globulin (S) [Mass/Vol] 2.3 g/dL F [facility] Glucose [Mass/volume] in Ser um or [...] Hematocrit (Bld) [Volume fraction] 40.5 % 34.0-46.4 [facility] Hemoglobin [Mass/volume] in BloodOrdered By: Page Magaña on 10-27-2022 Hemoglobin (Bld) [Mass/Vol] 13.5 g/dL 11.8-15.4 [facility] Leukocytes [#/volume] correc mague for nucleated erythrocytes in Blood by Automated counOrdered By: Page Magaña on 10-27-2022 WBC corrected for nucl RBC Auto (Bld) [#/Vol] 9.1 10*3/uL 3.8-11.6 [facility] Lipid Panelon 10-27-2022 Cholesterol [Mass/Vol] 209 mg/dL High 140-200 [facility] Comment on above: Order Comment: PT IS FASTING Result Comment: Chol less than 200 mg/dl low risk Chol 201-239 mg/dl borderline risk Chol 240 mg/dl and greater high risk Performed By: #### H CGQNT #### [facility] [address] Cholesterol in HDL [Mass/Vol] 43 mg/dL Normal 35-85 [facility] Comment on above: Order Comment: PT IS FASTING Result Comment: HDL CHOL ATP-III CLASSIFICATION Cardiovascular Risk HDL > or equal to 60 mg/dL LOW HDL < 40 mg/dL HIGH Performed By: #### H CGQNT #### [facility] [address] Cholesterol.total/Poonam sterol in HDL [Mass ratio] 4.9 {ratio} Normal <5.0 [facility] Comment on above: Order Comment: PT IS FASTING Performed By: #### H CGQNT #### [facility] [address] LDL Cholesterol,Calculated 155 mg/dL High 0-100 [facility] Comment on above: Order Comment: PT IS FASTING Result Comment: LDL ATP III CLASSIFICATION LDL less than 100 mg/dL Optimal LDL 100-129 mg/dL Near or above optimal LDL 130-159 mg/dL Borderline high LDL 160-189 mg/dL High LDL greater than 189 mg/dL Very high Performed By: #### H CGQNT #### [address] Triglyceride w/Reflex 55 mg/dL Normal 0-149 [facility] Comment on above: Order Comment: PT IS FASTING Result Comment: TRIG ATP III CLASSIFICATION TRIG less than 150 mg/dL Normal TRIG 150-199 mg/dL Borderline high TRIG 200-500 mg/dL High TRIG greater than 500 mg/dL Very high Standard traceable to the Center for Disease Conrtrol and Prevention (CDC) test method. Performed By: #### H CGQNT #### [facility] [address] [place] [address] VLDL CHOLESTEROL 11 mg/dL Normal [facility] Comment on above: Order Comment: PT IS FASTING Performed By: #### H CGQNT #### [facility] [address] [place] [address] Lymphocytes Auto (Bld) [#/Vo l]Ordered By: Page Magaña on 10-27-2022 Lymphocytes (Bld) [#/Vol] 2.8 10*3/uL 1.00-4.8 [facility] Lymphocytes/100 WBC Auto (Bl d)Ordered By: Page Magaña on 10-27-2022 Lymphocytes/100 WBC (Bld) 30.3 % . [facility] MCH Auto (RBC) [Entitic mass ]Ordered By: Page Magaña on 10-27-2022 MCH (RBC) [Entitic mass] 28.1 pg 24.7-34.3 [facility] MCHC Auto (RBC) [Mass/Vol]Or dered By: Page Magaña on 10-27-2022 MCHC (RBC) [Mass/Vol] 33.3 g/dL 32.0-35.0 [facility] MCV Auto (RBC) [Entitic vol] Ordered By: Page Magaña on 10-27-2022 MCV (RBC) [Entitic vol] 84.6 fL 80-100 F [facility] Monocytes Auto (Bld) [#/Vol] Ordered By: Page Magaña on 10-27-2022 Monocytes (Bld) [#/Vol] 0.6 10*3/uL 0.0-0.8 [facility] Monocytes/100 WBC Auto (Bld) Ordered By: Page Magaña on 10-27-2022 Monocytes/100 WBC (Bld) 6.7 % . [facility] Neutrophils Auto (Bld) [#/Vo l]Ordered By: Page Magaña on 10-27-2022 Neutrophils (Bld) [#/Vol] 5.5 10*3/uL 1.8-7.7 [facility] Neutrophils/100 WBC Auto (Bl d)Ordered By: Page Magaña on 10-27-2022 Neutrophils/100 WBC (Bld) 60.8 % . [facility] No Panel InformationOrdered By: Page Magaña on 10-27-2022 Estimated GFR (CKD-EPI) > 60.0 mL/Min [facility] Creatinine Clearance (Chem N/A [facility] Nucleated erythrocytes [Pres ence] in Blood by Automated countOrdered By: Page Magaña on 10-27-2022 Nucleated RBC Auto Ql (Bld) 0.3 /100{WBC} 0-0.5 [facility] Platelet mean volume Auto (B ld) [Entitic vol]Ordered By: Page Magaña on 10-27-2022 Platelet mean volume (Bld) [Entitic vol] 8.9 fL 6.3-10.7 [facility] Platelets Auto (Bld) [#/Vol] Ordered By: Page Magaña on 10-27-2022 Platelets (Bld) [#/Vol] 246 10*3/uL 150-450 [facility] Potassium [Moles/volume] in Serum or PlasmaOrdered By: Page Magaña on 10-27-2022 Potassium [Moles/Vol] 4.3 mmol/L 3.5-5.1 [facility] Protein [Mass/volume] in Ser um or PlasmaOrdered By: Page Magaña on 10-27-2022 Protein [Mass/Vol] 6.5 g/dL 6.4-8.9 [facility] RBC Auto (Bld) [#/Vol]Ordere d By: Page Magaña on 10-27-2022 RBC (Bld) [#/Vol] 4.79 10*6/uL 3.60-5.00 [facility] Rheumatoid Factoron 10-28-19 Rheumatoid Factor <10.0 Normal <14.0 [facility] Comment on above: Result Comment: Perf ormed at: CB - [facility] [place] [id number] Drill Grinder: Ismael Suh PhD, Phone: [phone] Performed By: #### H CGQNT #### [facility] [address] [place] [address] Serum or plasma albumin/glob ulin mass ratioOrdered By: Page Magaña on 10-27-2022 Albumin/Globulin [Mass ratio] 1.8 {ratio} [facility] Serum or plasma anion gap de terminationOrdered By: Page Magaña on 10-27-2022 Anion gap [Moles/Vol] 10.6 mmol/L 6.0-15.0 [facility] Serum or plasma high density lipoprotein (HDL) cholesterol measurementOrdered By: Page Magaña on 10-27-2022 Cholesterol in HDL [Mass/Vol] 43 mg/dL 35-85 [facility] Comment on above: HDL CHOL ATP-III CLA SSIFICATION Cardiovascular RiskHDL > or equal to 60 mg/dL LOWHDL < 40 mg/dL HIGH Serum or plasma total choles terol/high density lipoprotein (HDL) cholesterol mass ratOrdered By: Page Magaña on 10-27-2022 Cholesterol.total/Poonam sterol in HDL [Mass ratio] 4.9 {ratio} <5.0 [facility] Sodium [Moles/volume] in Ser um or PlasmaOrdered By: Page Magaña on 10-27-2022 Sodium [Moles/Vol] 138 mmol/L 136-145 [facility] Thyroid Stim Hormone w/Rflxo n 10-27-2022 Thyroid Stim Hormone w/Rflx 0.76 u[iU]/mL Normal 0.45-5.33 [facility] Comment on above: Order Comment: PT IS FASTING Performed By: #### H CGQNT #### [address] Thyrotropin [Units/volume] i n Serum or PlasmaOrdered By: Page Magaña on 10-27-2022 TSH Qn 0.76 m[IU]/L 0.45-5.33 [facility] Triglyceride [Mass/volume] i n Serum or PlasmaOrdered By: Page Magaña on 10-27-2022 Triglyceride [Mass/Vol] 55 mg/dL 0-149 [facility] Comment on above: TRIG ATP III CLASSIF ICATIONTRIG less than 150 mg/dL NormalTRIG 150-199 mg/dL Borderline highTRIG 200-500 mg/dL High TRIG greater than 500 mg/dL Very highStandard traceable to the Center for Disease Conrtrol and Prevention (CDC) test method. Urea nitrogen [Mass/volume] in Serum or PlasmaOrdered By: Page Magaña on 10-27-2022 Urea nitrogen [Mass/Vol] 12 mg/dL 7-25 [facility] Vitamin D 25 Hydroxy Totalon 10-27-2022 Vitamin D 25 Hydroxy Total 22.1 ng/mL Low 30-100 [facility] Comment on above: Order Comment: PT IS FASTING Result Comment: HARVINDER MIN D STATUS 25(OH)VITAMIN D RANGE (ng/mL) Deficient <20 Insufficient 20 to <30 Sufficient 30 to 100 Reference: Lino Pena, Gildardo MARTELL, et al. Evaluation,treatment, and prevention of vitamin D deficiency; an Endocrine Society clinical practice guideline. JCEM. 2010; 96(7):191-. PERFORMED BY: [facility] [address] [place] [address] PATHOLOGIST [employer] JERRY CASTRO M.D. Performed By: #### H CGQNT #### [address] Vitamin D+Metabolites [Mass/ volume] in Serum or PlasmaOrdered By: Page Magaña on 10-27-2022 Vitamin D+Metabolites [Mass/Vol] 22.1 ng/mL 30-100 [facility] Comment on above: VITAMIN D STATUS 25( [place])VITAMIN D RANGE (ng/mL) Deficient <20 Insufficient 20 to <30Sufficient 30 to 100Reference: Lino Pena, Gildardo MARTELL, et al. Evaluation,treatment, and prevention of vitamin D deficiency; an Endocrine Society clinical practice guideline. JCEM. 2010; 96(7):191-. WBC Auto (Bld) [#/Vol]Ordere d By: Page Magaña on 10-27-2022 WBC (Bld) [#/Vol] 9.1 10*3/uL 3.8-11.6 [facility] Vital Signs Date Time Vital Sign Value Performing Clinician Facility 08-16-2023 13:25-0500 Body mass index (BMI) [Ratio] 33.94 kg/m2 [employer] DO Work Phone: [facility] 08-16-2023 13:25-0500 Body weight 78.83 kg Edgar Rip DO Work Phone: [facility] 08-16-2023 13:25-0500 Diastolic blood pressure 78 mm[Hg] [employer] Work Phone: [facility] 08-16-2023 13:25-0500 Systolic blood pressure 122 mm[Hg] [employer] Work Phone: [facility] 06-28-2023 05:30-0500 Body temperature 98.8 [degF] DO Sallie Magaña Work Phone: [facility] 06-28-2023 05:30-0500 Diastolic blood pressure 79 mm[Hg] DO Sallie Magaña Work Phone: 4(537)196-433426 [place] [address] 06-28-2023 05:30-0500 Heart rate 80 /min DO Sallie Magaña Work Phone: 1(383)936-209926 [place] [address] 06-28-2023 05:30-0500 Respiratory rate 20 /min DO Sallie Magaña Work Phone: 4([phone])308-597826 [place] [address] 06-28-2023 05:30-0500 SaO2% (BldA) [Mass fraction] 98 % DO Sallie Magaña Work Phone: 4(908)067-310726 [place] [address] 06-28-2023 05:30-0500 Systolic blood pressure 121 mm[Hg] DO Sallie Magaña Work Phone: 7(259)[phone] [place] [address] 06-26-2023 20:49-0500 Body height 152.4 cm DO Sallie Magaña Work Phone: 0(323)796-935126 [place] [address] 06-26-2023 20:49-0500 Body weight 74.38 kg DO Sallie Magaña Work Phone: 3(240)[phone] [place] [address] 01-24-2023 13:44-0400 Diastolic blood pressure 73 mm[Hg] DO Sallie Magaña Work Phone: [facility] 01-24-2023 13:44-0400 Heart rate 104 /min DO Sallie Magaña Work Phone: [phone] [place] [address] 01-24-2023 13:44-0400 Respiratory rate 16 /min DO Sallie Magaña Work Phone: [facility] 01-24-2023 13:44-0400 SaO2% (BldA) [Mass fraction] 98 % DO Sallie Magaña Work Phone: [facility] 01-24-2023 13:44-0400 Systolic blood pressure 117 mm[Hg] DO Sallie Magaña Work Phone: [facility] 01-24-2023 10:11-0400 Body height 152.4 cm DO Sallie Magaña Work Phone: [facility] 01-24-2023 10:11-0400 Body temperature 98.5 [degF] DO Sallie Magaña Work Phone: [facility] 01-24-2023 10:11-0400 Body weight 67.58 kg DO Sallie Magaña Work Phone: [facility] 11-08-2022 15:30-0400 Body height 147.96 cm Hilario Reynolds Other [employer] Other 11-08-2022 15:30-0400 Body mass index (BMI) [Ratio] 34.23 kg/m2 Hilario Reynolds Other [employer] Other 11-08-2022 15:30-0400 Body weight 74.93 kg Hilario Reynolds Other [employer] Other 11-08-2022 15:30-0400 Diastolic blood pressure 90 mm[Hg] Hilario Reynolds Other [employer] Other 11-08-2022 15:30-0400 Respiratory rate 18 /min Hilario Reynolds Other [employer] Other 11-08-2022 15:30-0400 SaO2% (BldA) [Mass fraction] 97 % Hilario Reynolds Other [employer] Other 11-08-2022 15:30-0400 Systolic blood pressure 135 mm[Hg] Hilario Gail Other [facility] [employer] Other Encounters Encounter Date Encounter Type Care Provider Facility Start: 08-16-2023 End: 08-16-2023 ambulatory EDGAR RIP Not Available Start: 08-16-2023 End: 08-16-2023 flow sheet Edgar Rip DO Work Phone: [facility] Comment on above: Third trimester preg alxe; Hematuria, unspecified type Start: 08-15-2023 End: 08-15-2023 ambulatory Edgar Rip Facility:[facility] Start: 08-15-2023 End: 08-15-2023 ambulatory DO Sallie Magaña Work Phone: [facility] Work Phone: Start: 08-15-2023 End: 08-15-2023 Patient encounter procedure DO Sallie Magaña Work Phone: [facility] [place] Work Phone: Start: 08-04-2023 Telephone encounter Camila Gallego MD Work Phone: [facility] Start: 08-03-2023 End: 08-03-2023 ambulatory [facility] Start: 08-01-2023 End: 08-01-2023 ambulatory EDGAR RIP Not Available Start: 07-19-2023 End: 07-19-2023 ambulatory EDGAR RIP Not Available Start: 07-04-2023 End: 07-04-2023 ambulatory EDGAR RIP Not Available Start: 06-29-2023 ambulatory Alfredo LANDIN Facility:[facility] [place] Start: 06-27-2023 End: 06-28-2023 ambulatory Alfredo LANDIN Facility:[id number] Start: 06-26-2023 End: 06-28-2023 ambulatory Emerald Martinez Facility:[facility] Start: 06-26-2023 End: 06-28-2023 Evaluation and management of inpatient DO aSllie Magaña Work Phone: [facility] Work Phone: Start: 06-26-2023 End: 06-28-2023 observation encounter DO Sallie Magaña Work Phone: [facility] Work Phone: Start: 06-06-2023 End: 06-06-2023 ambulatory Latrice Sepulveda Facility:[facility] Start: 06-06-2023 End: 06-06-2023 Patient encounter procedure DO Sallie Magaña Work Phone: [facility] [place] Work Phone: Start: 05-29-2023 End: 05-29-2023 ambulatory BRANDON CAMARGO Not Available Start: 05-06-2023 End: 05-06-2023 ambulatory PagePrabha Aguila Magaña Facility:[facility] Start: 05-06-2023 End: 05-06-2023 ambulatory DO Sallie Magaña Work Phone: [facility] Work Phone: Start: 05-06-2023 End: 05-06-2023 Patient encounter procedure DO Sallie Magaña Work Phone: [facility] [place] Work Phone: Start: 01-24-2023 End: 01-24-2023 Emergency department patient visit DO Sallie Magaña Work Phone: [facility]-Emergency Room Work Phone: Start: 12-20-2022 End: 12-21-2022 ambulatory PagePrabha Magaña Facility:[facility] Start: 12-20-2022 Registered Recurring DO Sallie Helms slava Gracielamelany Work Phone: [facility]-Weight Management Work Phone: Start: 11-08-2022 End: 11-08-2022 ambulatory Hilario Reynolds Other [employer] Other Start: 11-08-2022 Nutrition therapy Hilario Reynolds [facility] Start: 10-27-2022 End: 10-27-2022 ambulatory Sallie Magaña Facility:[facility] Start: 10-27-2022 End: 10-27-2022 ambulatory DO Sallie Magaña Work Phone: [facility] Work Phone: Start: 10-27-2022 End: 10-27-2022 Patient encounter procedure DO Sallie Magaña Work Phone: [facility] [place] Work Phone: Procedures Date Procedure Procedure Detail Performing Clinician Start: 08-16-2023 Urnls dip stick/tabl et rgnt non-auto w/o micrscp Edgar Erwin DO Work Phone: Start: 06-26-2023 Ultrasonography of b ilateral kidneys DO Sallie Magaña Work Phone: Start: 03-10-2023 Microscopic observat ion [Identifier] in Cervix by Cyto stain Camila Gallego MD Work Phone: Plan of Treatment Date Care Activity Detail Author Start: 04-18-2028 Screening for malignant neoplasm of cervix [facility] Start: 03-10-2026 Screening for malignant neoplasm of cervix Pap Smear [facility] Start: 06-06-2024 Tobacco Screening Tobacco Screening [facility] Start: 06-05-2024 Adult BMI Screening Adult BMI Screening [facility] Start: 01-02-2024 ambulatory Ambulatory Facility:[facility] Start: 09-20-2023 End: 09-20-2023 Patient encounter procedure 09/20/2023 1:10 PM EDT Routine [facility] [address] [place] [id number] Edgar Erwin, DO [address] [place] [address] [facility] Start: 09-13-2023 End: 09-13-2023 Patient encounter procedure 09/13/2023 1:10 PM EST Routine [facility] [address] [facility] [place] [address] Edgar Erwin, DO [address] [place] [address] [place] [address] [facility] Start: 09-11-2023 End: 09-11-2023 Professional / ancillary services management 09/11/2023 8:30 AM EST Ancillary Procedure [facility] [address] [facility] [place] [id number] [facility] Start: 09-05-2023 End: 09-05-2023 Patient encounter procedure 09/05/2023 1:20 PM EST Routine [facility] [address] [facility] [place] [place] [address] Edgar Erwin, DO [address] [place] [address] [facility] Start: 08-30-2023 End: 08-30-2023 Patient encounter procedure 08/30/2023 1:10 PM EST Routine [facility] [address] [facility] [place] [place] [address] Edgar Erwin, DO [address] [place] [address] [facility] Start: 08-15-2023 Bacteria identified in Urine by Culture [facility] Start: 06-28-2023 [facility] Start: 06-26-2023 Referral to urologist [facility] Start: 06-26-2023 Hospital admission [facility] Start: 03-10-2023 Influenza vaccination [facility] Start: 01-24-2023 Diagnostic ultrasound of gravid uterus [facility] Start: 01-24-2023 Ultrasonography of bilateral kidneys US renal BI [facility] Start: 07-18-2023 US Kidney - bilateral [facility] Start: 01-24-2023 Transvaginal obstetric ultrasonography [facility] Start: 2011 Screening for malignant neoplasm of cervix Pap Smear [facility] Start: 2009 DTaP,Tdap and Td Vaccines (1 - Tdap) DTaP,Tdap and Td Vaccines (1 - Tdap) [facility] Start: 2008 Adult BMI Follow Up Plan Adult BMI Follow Up Plan [facility] Start: 2002 Depression Screening Depression Screening [facility] Cefuroxime free [Mass/volume] in Serum or Plasma [facility] Patient Education [facility] Work Phone: Patient referral [facility] Work Phone: Rheumatoid factor [Units/volume] in Serum or Plasma [facility] Immunizations Immunization Date Immunization Notes Care Provider Fa [facility] 05-06-2020 influenza virus vaccine, unspecified formulation Camila Gallego MD Work Phone: [facility] Payers Date Payer Category Payer Self-pay [id number] 2016 Unknown [id number] 2016 Unknown [id number]. [id number] 1990 Unknown [id number] 2.16.840.1.479634.3.579.2. 727 1990 Unknown [id number] 2.16.840.1.999847.3.579.2. 1286 1990 Unknown [id number] 2.16.840.1.517064.3.579.2. 1259 1990 Unknown [id number] 2.16.840.1.705876.3.579.2. 1259 1990 Unknown [id number] 2.16.840.1.580571.3.579.2. 1259 1990 Unknown [id number] 2.16.840.1.430638.3.579.2. 1259 1990 Unknown [id number] 2.16.840.1.866951.3.579.2. 1259 Medicaid [employer] [id number] Private Health Insurance [facility] [id number] Unknown [id number] 2.16.840.1.356973.19 Unknown [id number] 2.16.840.1.399471.3.579.2. 531 Unknown [id number] 2.16.840.1.513841.3.579.2. 531 Unknown [id number] 2.16.840.1.531158.3.579.2. 531 Unknown [id number] 2.16.840.1.163290.3.579.2. 531 Unknown [id number] 2.16.840.1.159160.3.579.2. 531 Unknown [id number] 2.16.840.1.638003.3.579.2. 531 Unknown [id number] 2.16.840.1.770962.3.579.2. 531 Worker's Compensation [facility] [id number] Social History Date Type Detail Facility Start: 05-01-2020 End: 03-20-2023 Tobacco smoking status NHIS Never smoked tobacco (finding) [facility] Start: 1990 Sex Assigned At Female [facility] Start: 04-03-2023 End: 06-06-2023 Sex Assigned At [facility] [address] Other Start: 06-06-2023 Alcohol intake Ex-drinker (finding) [facility] Start: 04-03-2023 End: 06-06-2023 History of Social function [facility] Childcare Unknown [facility] Start: 01-08-2023 [facility] Start: 1990 Sex Assigned At Not on file [facility] Start: 08-16-2023 Alcohol intake Lifetime non-d aurelia (finding) [facility] Start: 03-20-2023 Alcohol Comment caffeine: coffee [facility] NEGATED: Highlighted rowStart: NINF History of tobacco use Passive smoker [facility] Goals Date Patient Goal Desired Activity /State Personal health goal Clinical Notes 11-08-2022 to 08-16-2023 Kathleenkathe Geronimo, ILAN - 08/16/2023 1:20 PM ESTTelephone Encounter - Camila Gallego MD - 08/04/2023 1:07 PM ESTTelephone Encounter - Camila Gallego MD - 08/04/2023 1:07 PM EST Note Date & Type Note Facility 08-16-2023 History of Presen t illness Narrative Reason for Appointment: Patient ID: Elyssa Smith is a 33 y.o. female who presents for Routine Visit Patient presents today for Return OB appointment. Current Medications: has a current medication list which includes the following prescription(s): cholecalciferol and mv-min-fe fum-fa-dha. Medical History: Active Ambulatory Problems Diagnosis Date Noted No Active Ambulatory Problems Resolved Ambulatory Problems Diagnosis Date Noted No Resolved Ambulatory Problems Past Medical History: Diagnosis Date Acute bacterial pharyngitis Allergies Asthma ([facility]) Gallbladder disease Kidney stones Family History Problem Relation Name Age of Onset Diabetes Father Hypertension Father No Known Problems Daughter No Known Problems Daughter No Known Problems Son Social History Tobacco Use Smoking status: Never Smokeless tobacco: Not on file Substance Use Topics Alcohol use: Never Comment: caffeine: coffee Drug use: Not on file Past Surgical History: Procedure Laterality Date SECTION, LOW TRANSVERSE 2008 SECTION, LOW TRANSVERSE 2017 CYSTOSCOPY 2019 kidney stone Allergies Allergen Reactions Dicyclomine Hives, Other and Unknown LOSS OF VISION Fish Oil Hives and Unknown Pollen Extract Unknown Other Hives Review of Systems: Review of Systems Constitutional: Negative. HENT: Negative. Eyes: Negative. Respiratory: Negative. Cardiovascular: Negative. Gastrointestinal: Negative. Genitourinary: Negative. Musculoskeletal: Negative. Skin: Negative. Neurological: Negative. All other systems reviewed and are negative. Hematological: Negative. Endocrine: Negative. Allergic/Immunologic: Negative. Objective Physical Exam Constitutional: Appearance: Normal appearance. She is well-developed. Cardiovascular: Rate and Rhythm: Normal rate and regular rhythm. Pulmonary: Effort: Pulmonary effort is normal. Breath sounds: Normal breath sounds. Abdominal: General: Bowel sounds are normal. There is no distension. Palpations: Abdomen is soft. Tenderness: There is no abdominal tenderness. There is no guarding or rebound. Musculoskeletal: General: No swelling. Normal range of motion. Right lower leg: No edema. Left lower leg: No edema. Neurological: Mental Status: She is alert and oriented to person, place, and time. Skin: General: Skin is warm and dry. Psychiatric: Mood and Affect: Mood normal. Behavior: Behavior normal. Vitals and nursing note reviewed. Exam conducted with a slitter helper present. Vitals: Estimated body mass index is 33.94 kg/m as calculated from the following: Height as of 11/02/22: 5'. Weight as of this encounter: 173 lb 12.8 oz. BP: 122/78 Patient's last menstrual period was 01/04/2023. Assessment/Plan Encounter Diagnosis Name Primary? Third trimester Patient presents today for a routine obstetrics appointment. Patient is currently 33w3d . Patient states she is doing well but has complaints of being tired due to current . Patient has verbalizes frequent movement. labor precautions was discussed/given and patient was instructed to perform kick counts three times a day. Rx for macrobid faxed to pharmacy, Follow Up: Patient is to return to office in 2 week for routine OB appointment. Documented by Kathleen Geronimo LPN on behalf of: Edgar Erwin DO documented in this encounter [facility] 08-04-2023 Miscellaneous Notes Called in left voice message in regards to question about placenta accreta. Sonographic assessment was not consistent with abnormal placentation. No signs of placenta accreta by ultrasound. If you have any further questions please do not hesitate to contact our office. CAMILA GALLEGO MD documented in this encounter [facility] 08-04-2023 Telephone encounter Note Called in left voice message in regards to question about placenta accreta. Sonographic assessment was not consistent with abnormal placentation. No signs of placenta accreta by ultrasound. If you have any further questions please do not hesitate to contact our office. CAMILA GALLEGO MD [facility] Work Phone: 06-27-2023 Consult note Note Date/Time June 27, 2023 2:48pm [facility] [address] [place] [address] Urology Consult Note Signed Patient: Elyssa Smith MR#: [id number] : 1990 Acct:[id number] Age/Sex: 33 / F Adm Date: 3 Loc: Room: [address] [place] [address] Type: ADM INOo Attending Dr: Emerald Martinez [...] P documented by Dr. Martinez earlier today [facility] Medical History (Updated 06/27/23 @ 07:15 by [...] % (Auto) 87.1, Lymph % (Auto) 8.3, [place] % (Auto) 4.2, Eos % (Auto)0.2, Baso % (Auto) 0.2, Nucleat RBC Rel Count 0.1, Neut # (Auto) 11.9 H, Lymph #(Auto) 1.1, [place] # (Auto) 0.6, Eos # (Auto) 0.0, Baso # (Auto) 0.0 06/26/23 20:07: Fibronectin Negative 06/26/23 19:20: Urine Opiates Screen Negative, Ur Barbiturates Screen Negative, Ur Phencyclidine Scrn Negative, Ur Amphetamines Screen Negative, U Benzodiazepines Scrn Negative, Urine Cocaine Screen Negative 06/26/23 19:20: Urine Color Yellow, Urine Appearance Clear, Urine pH 6.5, Ur Specific [place] 1.009, Urine Protein Trace H, Urine Glucose [...] Signed By: <Electronically signed by MD Alfredo Lanidn> 06/27/23 1452 [facility] Work Phone: 1(630) 692-480212-19-2023 History and physical note Author Emerald Martinez [facility] June 27, 2023 7:16am Note Date/Time June 27, 2023 7:10am [facility] [address] [place] [address] 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 OB [facility] Medical History (Updated 06/27/23 @ 07:15 by [...] 50 mls @ 100 mls/hr IV Q8H [facility] Last Admin: 06/27/23 05:16 Dose: 100 mls/hr [...] % (Auto) 87.1, Lymph % (Auto) 8.3, [place] % (Auto) 4.2, Eos % (Auto)0.2, Baso % (Auto) 0.2, Nucleat RBC Rel Count 0.1, Neut # (Auto) 11.9 H, Lymph #(Auto) 1.1, [place] # (Auto) 0.6, Eos # (Auto) 0.0, Baso # (Auto) 0.0 06/26/23 20:07: Fibronectin Negative 06/26/23 19:20: Urine Opiates Screen Negative, Ur Barbiturates Screen Negative, Ur Phencyclidine Scrn Negative, Ur Amphetamines Screen Negative, U Benzodiazepines Scrn Negative, Urine Cocaine Screen Negative 06/26/23 19:20: Urine Color Yellow, Urine Appearance Clear, Urine pH 6.5, Ur Specific [place] 1.009, Urine Protein Trace H, Urine Glucose [...] currently. She does see Dr. Erwin in [place] for her care (2) Right kidney stone: Plan: Urology has been consulted- awaiting recommendations (3) Hydronephrosis, right: Plan: Urology has been consulted-awaiting recommendations Documented By: Emerald Martinez DO 06/27/23 07 06 Signed By: <Electronically signed by Emerald Martinez DO> 06/27/23 0716 [facility] Work Phone: 1(884) 141-661705-02-2023 Evaluation note* Encounter Date Diagnosis Assessment Notes Treatment Notes Treatment Clinical Notes November, Abnormal weight gain (ICD-10 - R63.5) November, Mixed hyperlipidemia (ICD-10 - E78.2) November, Anxiety (ICD-10 - F41.9) November, Asthma (ICD-10 - J45.909) November, Kidney stones (ICD-1 0 - N20.0) [place] Other Evaluation noteNo assessment information available [facility] Work Phone: Evaluation note* Diagnosis Onset Date Resolution Status 26 weeks gestation of acute Hydronephrosis, right acute Right kidney stone acute [facility] Work Phone: Evaluation note* Diagnosis Onset Date Resolution Status 26 weeks gestation of acute Hydronephrosis, right acute Right kidney stone resolved [facility] Work Phone: Evaluation note* Diagnosis Third trimester state, incidental Hematuria, unspecified type documented in this encounter [facility] - Reported* Type Description Date Medical History asthma Surgical History C section x 2 Surgical History kidney stones Surgical History IUD removed Hospitalization History see surgical hx [place] Other Hospital Discharge instructions Additional Instructions Follow-up with your primary care doctor and OB-GENERAL REPAIRER Return to ED if you develop worsening [facility] or [facility] Work Phone: Hospital Discharge instructions Additional Instructions Follow up with Dr. Villatoro [facility] Work Phone: InstructionsNot on filedocumented in this encounter [facility] Author KIKI BEAL [facility] June 28, 2023 8:04am Note Date/Time June 28, 2023 7:43am [facility] [address] [place] [address] BOWLING ALLEY MANAGER Progress Note Signed Patient: Elyssa Smith MR#: [id number] : 1990 Acct:[id number] Age/Sex: 33 / F Adm Date: 3 Loc: Room: [address] [place] [address] Type: ADM INOo Attending Dr: Emerald Martinez [...] Documented By: Virgen Hughes MD, RES 06/28/23 7834 Signed By: <Electronically signed by RES Virgen Hughes> 06/28/23 0751 <Electronically signed by MD KIKI BEAL> 06/28/23 0804 [facility] Work Phone: Chief Complaint and Reason [...] Hydronephrosis, right Right kidney stone Advance Directives Advance Directive Response Recorded Date/ Time Advance [...] Inactive Member Role Status Dates Sallei Magaña DO Primary Care Provider, Attending Provider [...] 2023 End: June 28, 2023 Emerald Martinez DO Admit Provider, Att ending Provider Active Start: June 26, 2023 End: June 28, 2023 Team Status: Inactive Member Role Status Dates PagePrabha Aguila DO Archana Primary Care Provider Active Start: August 15, 2023 End: August 15, 2023 Edgar Erwin Attending Provider Active Start: Arcelia meyers 2023 End: August 15, 2023 Manager Project Management Relationship Specialty Start Date End Date Jonah Magaña DO [address] [place] [address] PCP - Medical [employer] 12/08/22 Jonah Magaña DO [address] [place] [address] PCP - General Family Medicine 11/15/22 Goals (unrecognized section and content) Goals may be documented in a n alternate sectionNo InformationGoals may be documented in an alternate sectionGoals may be documented in an alternate sectionGoals may be documented in an alternate sectionNot on filedocumented as of this encounter REASON FOR VISIT (unrecogniz ed section and content) Reason Comments Routine Visit INFORMATION SOURCE (unrecogn ized section and content) DATE CREATED AUTHOR 07/15/2023 [facility] DATE CREATED AUTHOR AUTHOR'S ORGANIZ ATION 08/06/2023 [facility] DATE CREATED AUTHOR AUTHOR'S ORGANIZ ATION 08/17/2023 [facility] EPIC DATE CREATED AUTHOR AUTHOR'S ORGANIZ ATION 08/18/2023 [facility] FOR RECORDS PERTAINING TO PATIENTS [...] BE BASED ON THE PRIMARY CLINICAL RECORDS. [email or web address] provides no warranty or guarantee of the accuracy or completeness of information in this document.
[2023-09-04 20:19] VITALS: TEMP 36.3
[2023-09-04 20:20] VITALS: BP 134/86; PULSE 117
[2023-09-04 20:46] LABS: Bilirubin Urine NEGATIVE (NEGATIVE); Blood Urine NEGATIVE (NEGATIVE); Clarity Urine CLEAR (CLEAR); Color Urine LT. YELLOW (YELLOW); Glucose Urine UA NEGATIVE (NEGATIVE); Ketones Urine NEGATIVE (NEGATIVE); Leukocyte Esterase Urine NEGATIVE (NEGATIVE); Nitrite Urine NEGATIVE (NEGATIVE); Protein Urine NEGATIVE (NEG/TRACE); Specific Gravity Urine <=1.005 (1.005-1.025); Urobilinogen Urine 0.2 EU/dL (0.2-1.0); pH Urine 6.5 (5.0-9.0)
[2023-09-04 20:47] LABS: Urine Microscopic Indicated NO
--- NOTE | 2023-09-04 21:02 | US_ITS ---
[address] [address] Patient Name: CARMEN DE LA CRUZ MRN: [id number] date: 1990 Sex: F Assigned Patient Location: [facility] Current Patient Location: [facility] Accession/Order Number: [id number] Exam Date: 09/04/2023 21:10 Report Date: 09/04/2023 23:03 At the request of: EDGAR FERRELL Procedure: US OB BPP wo non-stress EXAM: US OB BPP wo non-stress HISTORY: Decreased movement COMPARISON: OB ultrasound 08/14/2023. TECHNIQUE: An ultrasound biophysical profile was performed with evaluation of breathing movements, gross body movements, tone and amniotic fluid volume. FINDINGS: ULTRASOUND BIOPHYSICAL PROFILE : breathing movements = 2/2. Gross body movements= 2/2. tone = 2/2. Amniotic fluid volume = 2/2. (The amniotic fluid index = 18). Total biophysical profile score = 8/8. heart rate = 144 bpm. Presentation is cephalic. US/US OB BPP wo non-stress IMPRESSION: 1. Normal ultrasound biophysical profile score of 8/8. 2. heart rate = 144 bpm. 3. Cephalic presentation. Electronically authenticated by: TUSHAR CALLAHAN Date: 09/04/2023 23:03
[2023-09-04] MEDS: FLUCONAZOLE 150 MG TABLET PO (21:42)
[2023-09-04] MEDS: 0.9 % SODIUM CHLORIDE 500 ML 1000 ML IV (23:00)
[2023-09-04] MEDS: BETAMETHASONE ACE/BETAMETHASONE SOD PHOS 30 MG/5 ML 12 MG IM (23:01)
[2023-09-04] MEDS: 0.9 % SODIUM CHLORIDE 1,000 ML 150 ML IV (23:01)
[2023-09-05] MEDS: 0.9 % SODIUM CHLORIDE 1,000 ML 150 ML IV (05:35)
[2023-09-05 07:46] VITALS: BP 128/61; PULSE 118
--- NOTE | 2023-09-05 08:14 | PM.OBPN ---
OB - PN: Subj Subjective Narrative: denies minimal ctxns, neg lof, vb, denies urinary symptoms, positive fm Exam Constitutional Vital Signs, click to edit/add: Last Vital Signs Temp 97.3 F L 09/04/23 20:19 Pulse 118 H 09/05/23 07:46 BP 128/61 09/05/23 07:46 Documenting provider has reviewed patient's vital signs: yes Common normals: no apparent distress Respiratory Common normals: normal respiratory effort Cardio Common normals: regular rate and regular rhythm GI Common normals: Normal to inspection, nondistended, normoactive bowel sounds present Extremity Common normals: no clubbing, cyanosis or edema Results Labs Labs: Urine 09/04/23 Range/Units 20:15 Urine Color Lt. yellow (YELLOW) Urine Clarity Clear (CLEAR) Urine pH 6.5 (5.0-9.0) Ur Specific [place] <=1.005 A (1.005-1.025) Urine Protein Negative (NEG/TRACE) mg/dL Urine Glucose (UA) Negative (NEGATIVE) mg/dL OB - PN: A/P Assessment and Plan (1) Intrauterine : Plan iup at 36 2/7wks, ptc-resolved, dc home, [place] given, precautions given Time Spent with Patient Time: Total time spent is greater than 50% in coordination of care (as documented) at patient's floor/unit and/or counseling patient: Total time spent with greater than 50% in coordination of care (as documented) at patient's floor/unit and/or counseling patient: less than 15 minutes
--- NOTE | 2023-09-05 08:54 | PC.NURSE ---
orders breakfast as pt awaits ride home
== END 2023-09-05 09:20 | disposition home or self-care (01) ==
PROVIDERS: Obstetrics & Gynecology; Admitting Provider Obstetrics & Gynecology Gynecology; Visit Provider Obstetrics & Gynecology Gynecology
DX: O09.213 Supervision of pregnancy with history of pre-term labor, third trimester (principal); O26.843 Uterine size-date discrepancy, third trimester; O36.8130 Decreased fetal movements, third trimester, not applicable or unspecified; Z3A.36 36 weeks gestation of pregnancy
CPT/HCPCS: 59025; 76819; 81003; 96372; G0378; G0379; J0702

== ENCOUNTER 2023-09-05 21:29 | Outpatient (OUT) | payer OTHER, SELFPAY ==
--- OUTSIDE RECORDS SUMMARY | 2023-09-05 21:34 | XMS_ITS | CCD ---
Author Name Unknown Address [address] [facility] [address] [place] [address] Organization [facility] Care Team Providers Care Rn Oncology Clinical Name Role Phone DO Sallie Magaña Primary Care Provider [phone] DO Sallie Magaña Attending Provider Hilario Reynolds Unavailable DO Sallie Magaña Primary Care Provider MD Hilario Reynolds Attending Provider DO Sarmad Luque Emergency Provider [phone] DO Sallie Magaña Primary Care Provider DO Sallie Magaña Attending Provider DO Sallie Magaña Primary Care Provider DO Sallie Magaña Attending Provider MD Latrice Sepulveda Attending Provider [phone] DO Emerald Martinez Admit Provider DO Emerald [...] Magaña Admitting Unavailable Jonah Magaña DO Unavailable Jonah Magaña DO Primary Care Provider Allergies Allergy Classification Reported Allergen(s) Allergy Type Date of Onset Reaction(s) Facility (12 sources) Dicyclomine; Translations: [dicyclomine] Drug Allergy 6 Other (See Comments), Hives, Other, Unknown [facility] (9 sources) Fish Oils; Translations: [fish oil] Drug Allergy 0 Hives, [facility] (7 sources) Gluten; Translations: [gluten] Propensity to adverse reactions 0 Nausea [facility] (1 source) DHA Propensity to adverse reactions Unknown [employer] Other (2 sources) Pnv 871-Odrvr-Iaelx -3-Fish Oil; Translations: [PNV 191-FLAWG-WLGGK -3-FISH OIL] Propensity to adverse reactions to [...] completed) Niacin (1 source) Nicotinic Acid Niacin Not-Oar simeon oseltamivir 75 mg oral capsule (6 [...] UA Negative Negative - 4(70) +++ mg/dL [facility] Blood, UA Positive Negative - 50 Johnny/mcL [facility] Clarity, UA Cloudy [facility] Color, UA Yellow [facility] Glucose, UA Negative Negative - 2000(110) ++++ mg/dL [facility] Interpretation and review of laboratory results Abnormal [facility] Ketones, UA Negative Negative - 160(16) ++++ mg/dL [facility] Leukocytes, UA Negative Negative - 500+++ Mireya/mcL [facility] Nitrite, UA Negative Negative - Positive [facility] pH, UA 7.0 5 - 9 [facility] Protein, UA Negative Negative - 2000(20) ++++ mg/dL [facility] Spec Grav, UA 1.020 1 - 1.03 [facility] Urobilinogen, UA 0.2 0.2 - 12 mg/dL Replaced by [facility] Urine Cultureon 08-15-2023 Bacteria identified Cx Nom (U) ORGANISM: Chelsi albicans (O:CANALB) Waban Count 30,000 PERFORMED BY: [place] [address] PATHOLOGIST DAYTIME BABYSITTER JERRY CASTRO M.D. [facility] Comment on above: Performed By: #### U HCG, ADDONUAPLUS #### [address] Lab Reportson 07-14-2023 Lab Reports [id number]#1 .00TIFF [facility] Insurance Correspondence Off iceon 06-30-2023 Insurance Correspondence Office [id number]# 1.00TIFF Normal [facility] Lab Reportson 06-30-2023 Lab Reports [id number]# 1.00TIFF Normal [facility] RAD - Ultrasound Reporton RAD - Ultrasound Report [id number]#1 .00TIFF Normal [facility] Lab Reportson 06-29-2023 Lab Reports [id number]#1 .00TIFF Normal [facility] Consultation Noteon 06-28-20 Consultation Note [id number]#1 .00TIFF Normal [facility] Complete Blood Count Auto Di ffon 06-27-2023 Basophils (Bld) [#/Vol] 0.0 10*3/uL Normal 0.0-0.2 [facility] Comment on above: Result Comment: PERF ORMED BY: [place] [address] PATHOLOGIST DAYTIME BABYSITTER JERRY CASTRO M.D. Performed By: #### U HCG, ADDONUAPLUS #### [facility] [address] [place] [address] Basophils/100 WBC (Bld) 0.2 % Normal . [facility] Comment on above: Performed By: #### U HCG, ADDONUAPLUS #### [facility] [address] [place] [address] [place] Eosinophils (Bld) [#/Vol] 0.0 10*3/uL Normal 0.0-0.45 [facility] Comment on above: Performed By: #### U HCG, ADDONUAPLUS #### [facility] [address] [place] [address] [place] Eosinophils/100 WBC (Bld) 0.2 % Normal . [facility] Comment on above: Performed By: #### U HCG, ADDONUAPLUS #### [facility] [address] [place] [address] [place] Erythrocyte distribution width (RBC) [Ratio] 13.4 % Normal 11.9-15.3 [facility] Comment on above: Performed By: #### U HCG, ADDONUAPLUS #### [facility] [address] Hematocrit (Bld) [Volume fraction] 33.5 % Low 34.0-46.4 [facility] Comment on above: Performed By: #### U HCG, ADDONUAPLUS #### [facility] [address] Hemoglobin (Bld) [Mass/Vol] 11.3 g/dL Low 11.8-15.4 [facility] Comment on above: Performed By: #### U HCG, ADDONUAPLUS #### [facility] [address] [place] [address] Lymphocytes (Bld) [#/Vol] 1.1 10*3/uL Normal 1.00-4.8 [facility] Comment on above: Performed By: #### U HCG, ADDONUAPLUS #### [facility] [address] [place] [address] Lymphocytes/100 WBC (Bld) 8.3 % Normal . [facility] Comment on above: Performed By: #### U HCG, ADDONUAPLUS #### [address] MCH (RBC) [Entitic mass] 29.0 pg Normal 24.7-34.3 [facility] Comment on above: Performed By: #### U HCG, ADDONUAPLUS #### [facility] [address] [place] [address] MCV (RBC) [Entitic vol] 86.2 fL Normal 80-100 [facility] Comment on above: Performed By: #### U HCG, ADDONUAPLUS #### [facility] [address] [place] [address] Mean Corpuscular HGB Conc 33.7 g/dL Normal 32.0-35.0 [facility] Comment on above: Performed By: #### U HCG, ADDONUAPLUS #### [facility] [address] [place] [address] [place] Monocytes (Bld) [#/Vol] 0.6 10*3/uL Normal 0.0-0.8 [facility] Comment on above: Performed By: #### U HCG, ADDONUAPLUS #### [facility] [address] [place] [address] [place] Monocytes/100 WBC (Bld) 4.2 % Normal . [facility] Comment on above: Performed By: #### U HCG, ADDONUAPLUS #### [facility] [address] [place] [address] [place] Neutrophils (Bld) [#/Vol] 11.9 10*3/uL High 1.8-7.7 [facility] Comment on above: Performed By: #### U HCG, ADDONUAPLUS #### [facility] [address] Neutrophils/100 WBC (Bld) 87.1 % Normal . [facility] Comment on above: Performed By: #### U HCG, ADDONUAPLUS #### [facility] [address] NRBC% 0.1 /100{WBC} Normal 0-0.5 [facility] Comment on above: Performed By: #### U HCG, ADDONUAPLUS #### [facility] [address] Platelet mean volume (Bld) [Entitic vol] 9.8 fL Normal 6.3-10.7 [facility] Comment on above: Performed By: #### U HCG, ADDONUAPLUS #### [facility] [address] [place] [address] [place] Platelets (Bld) [#/Vol] 174 10*3/uL Normal 150-450 [facility] Comment on above: Performed By: #### U HCG, ADDONUAPLUS #### [facility] [address] [place] [address] [place] RBC (Bld) [#/Vol] 3.89 10*6/uL Normal 3.60-5.00 [facility] Comment on above: Performed By: #### U HCG, ADDONUAPLUS #### [facility] [address] [place] [address] [place] WBC (Bld) [#/Vol] 13.6 10*3/uL High 3.8-11.6 [facility] Comment on above: Performed By: #### U HCG, ADDONUAPLUS #### [facility] [address] [place] [address] Comprehensive Metabolic Pane mauricio 06-27-2023 Albumin [Mass/Vol] 3.4 g/dL Low 3.5-5.7 [facility] Comment on above: Performed By: #### U HCG, ADDONUAPLUS #### [facility] [address] [place] [address] Albumin/Globulin [Mass ratio] 1.6 {ratio} Normal [facility] Comment on above: Performed By: #### U HCG, ADDONUAPLUS #### [facility] [address] [place] [address] ALP [Catalytic activity/Vol] 88 U/L Normal 34-104 [facility] Comment on above: Performed By: #### U HCG, ADDONUAPLUS #### [facility] [address] [place] [address] ALT [Catalytic activity/Vol] 17 U/L Normal 7-52 [facility] Comment on above: Performed By: #### U HCG, ADDONUAPLUS #### [facility] [address] [place] [address] Anion gap [Moles/Vol] 12.5 mmol/L Normal 6.0-15.0 [facility] Comment on above: Performed By: #### U HCG, ADDONUAPLUS #### [facility] [address] [place] [address] AST [Catalytic activity/Vol] 14 U/L Normal 13-39 [facility] Comment on above: Performed By: #### U HCG, ADDONUAPLUS #### [facility] [address] [place] [address] Bilirubin [Mass/Vol] 0.3 mg/dL Normal 0.3-1.0 [facility] Comment on above: Performed By: #### U HCG, ADDONUAPLUS #### [facility] [address] Calcium [Mass/Vol] 8.2 mg/dL Low 8.6-10.3 [facility] Comment on above: Performed By: #### U HCG, ADDONUAPLUS #### [facility] [address] Chloride [Moles/Vol] 105 mmol/L Normal 98-107 [facility] Comment on above: Performed By: #### U HCG, ADDONUAPLUS #### [facility] [address] CO2 [Moles/Vol] 23.8 mmol/L Normal 21.0-31.0 [facility] Comment on above: Performed By: #### U HCG, ADDONUAPLUS #### [address] Creatinine [Mass/Vol] 0.52 mg/dL Low 0.60-1.20 [facility] Comment on above: Performed By: #### U HCG, ADDONUAPLUS #### [address] Creatinine Clr Calc Pharmacy 138.60 Normal [facility] Comment on above: Result Comment: PERF ORMED BY: [place] [address] PATHOLOGIST DAYTIME BABYSITTER JERRY CASTRO M.D. Performed By: #### U HCG, ADDONUAPLUS #### [address] GFR/1.73 sq M.predicted MDRD (S/P/Bld) [Vol rate/Area] mL/min/{1.73_m2} Normal [facility] Comment on above: Performed By: #### U HCG, ADDONUAPLUS #### [address] Globulin (S) [Mass/Vol] 2.1 g/dL Normal [facility] Comment on above: Performed By: #### U HCG, ADDONUAPLUS #### [address] Glucose [Mass/Vol] 124 mg/dL High 70-100 [facility] Comment on above: Result Comment: [place] Glucose Reference Range is dependent on time and content of last meal. Glucose of more than 200 mg/dL in a nonstressed, ambulatory subject supports the diagnosis of Diabetes Mellitus. ADA recommended reference range Performed By: #### U HCG, ADDONUAPLUS #### [facility] [address] Potassium [Moles/Vol] 3.3 mmol/L Low 3.5-5.1 [facility] Comment on above: Performed By: #### U HCG, ADDONUAPLUS #### [facility] [address] [place] [address] Protein [Mass/Vol] 5.5 g/dL Low 6.4-8.9 [facility] Comment on above: Performed By: #### U HCG, ADDONUAPLUS #### [facility] [address] [place] [address] Sodium [Moles/Vol] 138 mmol/L Normal 136-145 [facility] Comment on above: Performed By: #### U HCG, ADDONUAPLUS #### [facility] [address] [place] [address] Urea nitrogen [Mass/Vol] 6 mg/dL Low 7-25 [facility] Comment on above: Performed By: #### U HCG, ADDONUAPLUS #### [facility] [address] [place] [address] US renal BIon 06-27-2023 US renal BI [facility] [place] [address] [place] [address] Ultrasound Report Signed Patient: Elyssa Smith MR#: [id number] : 1990 Acct:[id number] Age/Sex: 33 / F ADM Date: 06/27/23 Loc: Room: 0N6975-9 Type: ADM INOo Attending Dr: Emerald Martinez [...] Kathleen Vaca M.D.06/27/2023 7:44 AM Dictation Location: [place] [address] Tech: Eryn Welsh Transcribed By: SILVINA 06/27/23 0744 Dictated By: Kathleen Vaca MD 06/27/23 0742 Signed By: 06/27/23 0744 Normal [facility] Alanine aminotransferase [En zymatic activity/volume] in Serum or PlasmaOrdered By: Emerald Martinez on 06-26-2023 ALT [Catalytic activity/Vol] 17 U/L 7-52 [facility] Albumin [Mass/volume] in Ser um or Plasma by Bromocresol green (BCG) dye binding methoOrdered By: Emerald Martinez on 06-26-2023 Albumin BCG dye [Mass/Vol] 3.4 g/dL 3.5-5.7 [facility] Alkaline phosphatase [Enzyma tic activity/volume] in Serum or PlasmaOrdered By: Emerald Martinez on 06-26-2023 ALP [Catalytic activity/Vol] 88 U/L 34-104 [facility] Amphetamine Screen Ql (U)Ord ered By: Emerald Martinez on 06-26-2023 Amphetamines Ql (U) Negative Negative [facility] Aspartate aminotransferase [ Enzymatic activity/volume] in Serum or PlasmaOrdered By: Emerald Martinez on 06-26-2023 AST [Catalytic activity/Vol] 14 U/L 13-39 [facility] Automated epithelial cells c ount in urine sediment (number/area)Ordered By: Emerald Martinez on 06-26-2023 Epithelial cells Auto (Urine sed) [#/Area] 10-19 [HPF] 0-2 [facility] Automated erythrocytes count in urine sediment (number/area)Ordered By: Emerald Martinez on 06-26-2023 RBC Auto (Urine sed) [#/Area] 10-19 [HPF] 0-4 [facility] Automated leukocytes count i n urine sediment (number/area)Ordered By: Emerald Martinez on 06-26-2023 WBC Auto (Urine sed) [#/Area] 0-1 [HPF] 0-4 [facility] Automated urine hyaline cast s count (number/volume)Ordered By: Emerald Martinez on 06-26-2023 Hyaline casts Auto (U) [#/Vol] None seen [LPF] 0-1 [facility] Barbiturates [Presence] in U rine by Screen methodOrdered By: Emerald Martinez on 06-26-2023 Barbiturates Screen Ql (U) Negative Negative [facility] Basophils Auto (Bld) [#/Vol] Ordered By: Emerald Martinez on 06-26-2023 Basophils (Bld) [#/Vol] 0.0 10*3/uL 0.0-0.2 [facility] Basophils/100 WBC Auto (Bld) Ordered By: Emerald Martinez on 06-26-2023 Basophils/100 WBC (Bld) 0.2 % . [facility] Benzodiazepines Screen Ql (U )Ordered By: Emerald Martinez on 06-26-2023 Benzodiazepines Ql (U) Negative Negative [facility] Benzoylecgonine [Presence] i n Urine by Screen methodOrdered By: Emerald Martinez on 06-26-2023 Benzoylecgonine Screen Ql (U) Negative Negative [facility] Bilirubin Test strip Ql (U)O rdered By: Emerald Martinez on 06-26-2023 Bilirubin Ql (U) Negative Negative [facility] Bilirubin.total [Mass/volume ] in Serum or PlasmaOrdered By: Emerald Martinez on 06-26-2023 Bilirubin [Mass/Vol] 0.3 mg/dL 0.3-1.0 [facility] Calcium [Mass/volume] in Ser um or PlasmaOrdered By: Emerald Martinez on 06-26-2023 Calcium [Mass/Vol] 8.2 mg/dL 8.6-10.3 [facility] Carbon dioxide, total [Moles /volume] in Serum or PlasmaOrdered By: Emerald Martinez on 06-26-2023 CO2 [Moles/Vol] 23.8 mmol/L 21.0-31.0 [facility] Chloride [Moles/volume] in S gris or PlasmaOrdered By: Emerald Martinez on 06-26-2023 Chloride [Moles/Vol] 105 mmol/L 98-107 [facility] Color Auto (U)Ordered By: Graciela Martinez on 06-26-2023 Color (U) Yellow Yellow [facility] Creatinine [Mass/volume] in Serum or PlasmaOrdered By: Emerald Martinez on 06-26-2023 Creatinine [Mass/Vol] 0.52 mg/dL 0.60-1.20 [facility] Dipstick and Microscopicon 1 08-27-2022 Appearance (U) Clear Normal Clear [facility] Comment on above: Order Comment: Name Collection Type:: Clean-Voided Midstream Performed By: #### U HCG, ADDONUAPLUS #### [facility] [address] [place] [id number] [place] Bacteria,Urine Rare High None Seen [facility] Comment on above: Order Comment: Name Collection Type:: Clean-Voided Midstream Performed By: #### U HCG, ADDONUAPLUS #### [facility] [address] [place] [address] [place] Bilirubin,Urine Negative Normal Negative [facility] Comment on above: Order Comment: Name Collection Type:: Clean-Voided Midstream Performed By: #### U HCG, ADDONUAPLUS #### [facility] [address] [place] [address] [place] Color (U) Yellow Normal Yellow [facility] Comment on above: Order Comment: Name Collection Type:: Clean-Voided Midstream Performed By: #### U HCG, ADDONUAPLUS #### [facility] [address] [place] [address] Glucose Ql (U) Normal Normal Normal [facility] Comment on above: Order Comment: Name Collection Type:: Clean-Voided Midstream Performed By: #### U HCG, ADDONUAPLUS #### [facility] [address] [place] [address] Hyaline Casts,Urine None Seen Normal 0-1 [facility] Comment on above: Order Comment: Name Collection Type:: Clean-Voided Midstream Performed By: #### U HCG, ADDONUAPLUS #### [address] Ketones Ql (U) Negative Normal Negative [facility] Comment on above: Order Comment: Name Collection Type:: Clean-Voided Midstream Performed By: #### U HCG, ADDONUAPLUS #### [address] Leukocyte esterase Test strip Ql (U) Negative Normal Negative [facility] Comment on above: Order Comment: Name Collection Type:: Clean-Voided Midstream Performed By: #### U HCG, ADDONUAPLUS #### [facility] [address] [place] [address] Nitrite,Urine Negative Normal Negative [facility] Comment on above: Order Comment: Name Collection Type:: Clean-Voided Midstream Performed By: #### U HCG, ADDONUAPLUS #### [facility] [address] [place] [address] Occult Blood,Urine 3+ High Negative [facility] Comment on above: Order Comment: Name Collection Type:: Clean-Voided Midstream Result Comment: PERF ORMED BY: [place] [address] PATHOLOGIST DAYTIME BABYSITTER JERRY CASTRO M.D. Performed By: #### U HCG, ADDONUAPLUS #### [facility] [address] [place] [address] pH (U) 6.5 [pH] Normal 5.0-9.0 [facility] Comment on above: Order Comment: Name Collection Type:: Clean-Voided Midstream Performed By: #### U HCG, ADDONUAPLUS #### [facility] [address] Protein,Urine Trace High Negative [facility] Comment on above: Order Comment: Name Collection Type:: Clean-Voided Midstream Performed By: #### U HCG, ADDONUAPLUS #### [facility] [address] [place] [address] RBC,Urine 10-19 High 0-4 [facility] Comment on above: Order Comment: Name Collection Type:: Clean-Voided Midstream Performed By: #### U HCG, ADDONUAPLUS #### [address] Specificy [place],Urine 1.009 Normal 1.001-1.030 [facility] Comment on above: Order Comment: Name Collection Type:: Clean-Voided Midstream Performed By: #### U HCG, ADDONUAPLUS #### [facility] [address] [place] [address] Squamous Epithelial Cell,Urine 10-19 High 0-2 [facility] Comment on above: Order Comment: Name Collection Type:: Clean-Voided Midstream Performed By: #### U HCG, ADDONUAPLUS #### [address] Urobilinogen,Urine Normal Normal Normal [facility] Comment on above: Order Comment: Name Collection Type:: Clean-Voided Midstream Performed By: #### U HCG, ADDONUAPLUS #### [facility] [address] [place] [address] WBC LM.HPF (Urine sed) [#/Area] 0 /[HPF] Normal 0-4 [facility] Comment on above: Order Comment: Name Collection Type:: Clean-Voided Midstream Performed By: #### U HCG, ADDONUAPLUS #### [address] Yeast,Urine Rare Critically abnormal None Seen [facility] Comment on above: Order Comment: Name Collection Type:: Clean-Voided Midstream Result Comment: PERF ORMED BY: [place] [address] PATHOLOGIST DAYTIME BABYSITTER JERRY CASTRO M.D. Performed By: #### U HCG, ADDONUAPLUS #### [facility] [address] [place] [address] Eosinophils Auto (Bld) [#/Vo l]Ordered By: Emerald Martinez on 06-26-2023 Eosinophils (Bld) [#/Vol] 0.0 10*3/uL 0.0-0.45 [facility] Eosinophils/100 WBC Auto (Bl d)Ordered By: Emerald Martinez on 06-26-2023 Eosinophils/100 WBC (Bld) 0.2 % . [facility] Erythrocyte distribution wid th Auto (RBC) [Ratio]Ordered By: Emerald Martinez on 06-26-2023 Erythrocyte distribution width (RBC) [Ratio] 13.4 % 11.9-15.3 [facility] Fibronectinon 06-26-20 23 Fibronectin Negative Normal Negative [facility] Comment on above: Order Comment: Name Collection Type:: Clean-Voided Midstream Result Comment: PERF ORMED BY: [place] [address] PATHOLOGIST DAYTIME BABYSITTER JERRY CASTRO M.D. Performed By: #### U HCG, ADDONUAPLUS #### [facility] [address] [place] [address] fibronectinOrdered By: Emerald Martinez on 06-26-2023 Fibronectin. (Vag fld) [Mass/Vol] Negative Negative [facility] Globulin Calc (S) [Mass/Vol] Ordered By: Emerald Martinez on 06-26-2023 Globulin (S) [Mass/Vol] 2.1 g/dL [facility] Glucose [Mass/volume] in Ser um or PlasmaOrdered By: Emerald Martinez on 06-26-2023 Glucose [Mass/Vol] 124 mg/dL 70-100 [facility] Comment on above: ADA recommended refe rence rangeRandom Glucose Reference Range is dependent on time and content of last meal. Glucose of more than 200 mg/dL in a nonstressed, ambulatory subject supports the diagnosis of Diabetes Mellitus. Hematocrit Auto (Bld) [Volum e fraction]Ordered By: Emerald Martinez on 06-26-2023 Hematocrit (Bld) [Volume fraction] 33.5 % 34.0-46.4 [facility] Hemoglobin [Mass/volume] in BloodOrdered By: Emerald Martinez on 06-26-2023 Hemoglobin (Bld) [Mass/Vol] 11.3 g/dL 11.8-15.4 [facility] Ketones Auto test strip (U) [Mass/Vol]Ordered By: Emerald Martinez on 06-26-2023 Ketones (U) [Mass/Vol] Negative Negative [facility] Leukocytes [#/volume] correc mague for nucleated erythrocytes in Blood by Automated counOrdered By: Emerald Martinez on 06-26-2023 WBC corrected for nucl RBC Auto (Bld) [#/Vol] 13.6 10*3/uL 3.8-11.6 [facility] Lymphocytes Auto (Bld) [#/Vo l]Ordered By: Emerald Martinez on 06-26-2023 Lymphocytes (Bld) [#/Vol] 1.1 10*3/uL 1.00-4.8 [facility] Lymphocytes/100 WBC Auto (Bl d)Ordered By: Emerald Martinez on 06-26-2023 Lymphocytes/100 WBC (Bld) 8.3 % . [facility] MCH Auto (RBC) [Entitic mass ]Ordered By: Emerald Martinez on 06-26-2023 MCH (RBC) [Entitic mass] 29.0 pg 24.7-34.3 [facility] MCHC Auto (RBC) [Mass/Vol]Or dered By: Emerald Martinez on 06-26-2023 MCHC (RBC) [Mass/Vol] 33.7 g/dL 32.0-35.0 [facility] MCV Auto (RBC) [Entitic vol] Ordered By: Emerald Martinez on 06-26-2023 MCV (RBC) [Entitic vol] 86.2 fL 80-100 [facility] Monocytes Auto (Bld) [#/Vol] Ordered By: Emerald Martinez on 06-26-2023 Monocytes (Bld) [#/Vol] 0.6 10*3/uL 0.0-0.8 [facility] Monocytes/100 WBC Auto (Bld) Ordered By: Emerald Martinez on 06-26-2023 Monocytes/100 WBC (Bld) 4.2 % . [facility] Neutrophils Auto (Bld) [#/Vo l]Ordered By: Emerald Martinez on 06-26-2023 Neutrophils (Bld) [#/Vol] 11.9 10*3/uL 1.8-7.7 [facility] Neutrophils/100 WBC Auto (Bl d)Ordered By: Emerald Martinez on 06-26-2023 Neutrophils/100 WBC (Bld) 87.1 % . [facility] Nitrite Test strip Ql (U)Ord ered By: Emerald Martinez on 06-26-2023 Nitrite Ql (U) Negative Negative [facility] No Panel InformationOrdered By: Emerald Martinez on 06-26-2023 Estimated GFR (CKD-EPI) > 60.0 mL/Min [facility] Pharmacy Creatinine Clearance (Chem 138.60 [facility] Nucleated erythrocytes [Pres ence] in Blood by Automated countOrdered By: Emerald Martinez on 06-26-2023 Nucleated RBC Auto Ql (Bld) 0.1 /100{WBC} 0-0.5 [facility] OB Urine Drug Screen (NO THC )on 06-26-2023 Amphetamine Screen,Urine Negative Normal Negative [facility] Comment on above: Performed By: #### U HCG, ADDONUAPLUS #### [facility] [address] [place] [address] [place] Barbiturate Screen,Urine Negative Normal Negative [facility] Comment on above: Performed By: #### U HCG, ADDONUAPLUS #### [facility] [address] [place] [address] [place] Benzodiazepines Screen,Urine Negative Normal Negative [facility] Comment on above: Performed By: #### U HCG, ADDONUAPLUS #### [facility] [address] Cocaine Screen,Urine Negative Normal Negative [facility] Comment on above: Performed By: #### U HCG, ADDONUAPLUS #### [facility] [address] Opiate Screen,Urine Negative Normal Negative [facility] Comment on above: Performed By: #### U HCG, ADDONUAPLUS #### [facility] [address] Phencyclidine Screen, Urine Negative Normal Negative [facility] Comment on above: Result Comment: Thes e are unconfirmed results and should not be used for legal purposes. Drug Cut-Off Concentration: AMPH 1000 ng/mL DORIS 200 ng/mL LEANNE 200 ng/mL COCM 300 ng/mL OP 300 ng/mL PCP 25 ng/mL PERFORMED BY: [place] [address] PATHOLOGIST DAYTIME BABYSITTER JERRY CASTRO M.D. Performed By: #### U HCG, ADDONUAPLUS #### [address] Opiates [Presence] in Urine by Screen methodOrdered By: Emerald Martinez on 06-26-2023 Opiates Screen Ql (U) Negative Negative [facility] Phencyclidine Screen Ql (U)O rdered By: Emerald Martinez on 06-26-2023 Phencyclidine Ql (U) Negative Negative [facility] Comment on above: These are unconfirme d results and should not be used for legal purposes. Drug Cut-Off Concentration: AMPH 1000 ng/mL DORIS 200 ng/mL LEANNE 200 ng/mL COCM 300 ng/mL OP 300 ng/mL PCP 25 ng/mL Platelet mean volume Auto (B ld) [Entitic vol]Ordered By: Emerald Martinez on 06-26-2023 Platelet mean volume (Bld) [Entitic vol] 9.8 fL 6.3-10.7 [facility] Platelets Auto (Bld) [#/Vol] Ordered By: Emerald Martinez on 06-26-2023 Platelets (Bld) [#/Vol] 174 10*3/uL 150-450 [facility] Potassium [Moles/volume] in Serum or PlasmaOrdered By: Emerald Martinez on 06-26-2023 Potassium [Moles/Vol] 3.3 mmol/L 3.5-5.1 [facility] Protein Auto test strip (U) [Mass/Vol]Ordered By: Emerald Martinez on 06-26-2023 Protein (U) [Mass/Vol] Trace mg/dL Negative [facility] Protein [Mass/volume] in Ser um or PlasmaOrdered By: Emerald Martinez on 06-26-2023 Protein [Mass/Vol] 5.5 g/dL 6.4-8.9 [facility] RBC Auto (Bld) [#/Vol]Ordere d By: Emerald Martinez on 06-26-2023 RBC (Bld) [#/Vol] 3.89 10*6/uL 3.60-5.00 [facility] Serum or plasma albumin/glob ulin mass ratioOrdered By: Emerald Martinez on 06-26-2023 Albumin/Globulin [Mass ratio] 1.6 {ratio} [facility] Serum or plasma anion gap de terminationOrdered By: Emerald Martinez on 06-26-2023 Anion gap [Moles/Vol] 12.5 mmol/L 6.0-15.0 [facility] Sodium [Moles/volume] in Ser um or PlasmaOrdered By: Emerald Martinez on 06-26-2023 Sodium [Moles/Vol] 138 mmol/L 136-145 [facility] Specific gravity Auto test s trip (U) [Rel density]Ordered By: Emerald Martinez on 06-26-2023 Specific gravity (U) [Rel density] 1.009 1.001-1.030 [facility] Urea nitrogen [Mass/volume] in Serum or PlasmaOrdered By: Emerald Martinez on 06-26-2023 Urea nitrogen [Mass/Vol] 6 mg/dL 7-25 [facility] Urine bacteria detection by automated methodOrdered By: Emerald Martinez on 06-26-2023 Bacteria Auto Ql (U) Rare None Seen [facility] Urine clarity by refractomet ry automatedOrdered By: Emerald Martinez on 06-26-2023 Clarity Refractometry automated (U) Clear Clear [facility] Urine glucose measurement by automated test strip (mass/volume)Ordered By: Emerald Martinez on 06-26-2023 Glucose Auto test strip (U) [Mass/Vol] Normal mg/dL Normal [facility] Urine hemoglobin detection b y automated test stripOrdered By: Emerald Martinez on 06-26-2023 Hemoglobin Auto test strip Ql (U) 3+ Negative [facility] Urine leukocyte esterase det ection by automated test stripOrdered By: Emerald Martinez on 06-26-2023 Leukocyte esterase Auto test strip Ql (U) Negative Negative [facility] Urobilinogen Auto test strip (U) [Mass/Vol]Ordered By: Emerald Martinez on 06-26-2023 Urobilinogen (U) [Mass/Vol] Normal mg/dL Normal [facility] WBC Auto (Bld) [#/Vol]Ordere d By: Emerald Martinez on 06-26-2023 WBC (Bld) [#/Vol] 13.6 10*3/uL 3.8-11.6 [facility] Yeast detection in urine sed iment by light microscopyOrdered By: Emerald Martinez on 06-26-2023 Yeast LM Ql (Urine sed) Rare [HPF] None Seen [facility] pH Auto test strip (U)Ordere d By: Emerald Martinez on 06-26-2023 pH (U) 6.5 [pH] 5.0-9.0 [facility] 1,25 Dihydroxy Vit D Calcitr olon 06-06-2023 1,25 Dihydroxy Vit D Calcitrol 123.0 pg/mL High 24.8-81.5 [facility] Comment on above: Result Comment: Perf ormed at: BN - [facility] [address] [id number] Rn Clinical Appeals: Dinora Alvarenga MD, Phone: [phone] PERFORMED BY: [address] [place], [place] [id number] PATHOLOGIST DAYTIME BABYSITTER JERRY CASTRO M.D. Performed By: #### H CGQNT #### [facility] [address] Alanine aminotransferase [En zymatic activity/volume] in Serum or PlasmaOrdered By: Latrice Sepulveda on 06-06-2023 ALT [Catalytic activity/Vol] 19 U/L 7-52 [facility] Albumin [Mass/volume] in Ser um or Plasma by Bromocresol green (BCG) dye binding methoOrdered By: Latrice Sepulveda on 06-06-2023 Albumin BCG dye [Mass/Vol] 3.5 g/dL 3.5-5.7 [facility] Alkaline phosphatase [Enzyma tic activity/volume] in Serum or PlasmaOrdered By: Latrice Sepulveda on 06-06-2023 ALP [Catalytic activity/Vol] 84 U/L 34-104 [facility] Aspartate aminotransferase [ Enzymatic activity/volume] in Serum or PlasmaOrdered By: Latrice Sepulveda on 06-06-2023 AST [Catalytic activity/Vol] 16 U/L 13-39 [facility] Bilirubin.total [Mass/volume ] in Serum or PlasmaOrdered By: Latrice Sepulveda on 06-06-2023 Bilirubin [Mass/Vol] 0.3 mg/dL 0.3-1.0 [facility] Calcium [Mass/volume] in Ser um or PlasmaOrdered By: Latrice Sepulveda on 06-06-2023 Calcium [Mass/Vol] 8.6 mg/dL 8.6-10.3 [facility] Carbon dioxide, total [Moles /volume] in Serum or PlasmaOrdered By: Latrice Sepulveda on 06-06-2023 CO2 [Moles/Vol] 24.8 mmol/L 21.0-31.0 [facility] Chloride [Moles/volume] in S gris or PlasmaOrdered By: Latrice Sepulveda on 06-06-2023 Chloride [Moles/Vol] 107 mmol/L 98-107 [facility] Comprehensive Metabolic Pane mauricio 06-06-2023 Albumin [Mass/Vol] 3.5 g/dL Normal 3.5-5.7 [facility] Comment on above: Performed By: #### H CGQNT #### [facility] [address] [place] [address] [place] Albumin/Globulin [Mass ratio] 1.5 {ratio} Normal [facility] Comment on above: Performed By: #### H CGQNT #### [facility] [address] ALP [Catalytic activity/Vol] 84 U/L Normal 34-104 [facility] Comment on above: Performed By: #### H CGQNT #### [facility] [address] ALT [Catalytic activity/Vol] 19 U/L Normal 7-52 [facility] Comment on above: Performed By: #### H CGQNT #### [facility] [address] [place] [address] Anion gap [Moles/Vol] 9.9 mmol/L Normal 6.0-15.0 [facility] Comment on above: Performed By: #### H CGQNT #### [facility] [address] [place] [address] [place] AST [Catalytic activity/Vol] 16 U/L Normal 13-39 [facility] Comment on above: Performed By: #### H CGQNT #### [facility] [address] Bilirubin [Mass/Vol] 0.3 mg/dL Normal 0.3-1.0 [facility] Comment on above: Performed By: #### H CGQNT #### [facility] [address] [place] [address] [place] Calcium [Mass/Vol] 8.6 mg/dL Normal 8.6-10.3 [facility] Comment on above: Performed By: #### H CGQNT #### [facility] [address] [place] [address] [place] Chloride [Moles/Vol] 107 mmol/L Normal 98-107 [facility] Comment on above: Performed By: #### H CGQNT #### [facility] [address] CO2 [Moles/Vol] 24.8 mmol/L Normal 21.0-31.0 [facility] Comment on above: Performed By: #### H CGQNT #### [address] Creatinine [Mass/Vol] 0.45 mg/dL Low 0.60-1.20 [facility] Comment on above: Performed By: #### H CGQNT #### [place] [address] [place] GFR/1.73 sq M.predicted MDRD (S/P/Bld) [Vol rate/Area] mL/min/{1.73_m2} Normal [facility] Comment on above: Performed By: #### H CGQNT #### [address] Globulin (S) [Mass/Vol] 2.4 g/dL Normal [facility] Comment on above: Performed By: #### H CGQNT #### [address] Glucose [Mass/Vol] 89 mg/dL Normal 70-100 [facility] Comment on above: Result Comment: [facility] Glucose Reference Range is dependent on time and content of last meal. Glucose of more than 200 mg/dL in a nonstressed, ambulatory subject supports the diagnosis of Diabetes Mellitus. ADA recommended reference range Performed By: #### H CGQNT #### [address] Potassium [Moles/Vol] 3.7 mmol/L Normal 3.5-5.1 [facility] Comment on above: Performed By: #### H CGQNT #### [address] Protein [Mass/Vol] 5.9 g/dL Low 6.4-8.9 [facility] Comment on above: Performed By: #### H CGQNT #### [place] [address] [place] Sodium [Moles/Vol] 138 mmol/L Normal 136-145 [facility] Comment on above: Performed By: #### H CGQNT #### [facility] [address] Urea nitrogen [Mass/Vol] 5 mg/dL Low 7-25 [facility] Comment on above: Performed By: #### H CGQNT #### [facility] [address] Creatinine [Mass/volume] in Serum or PlasmaOrdered By: Latrice Sepulveda on 06-06-2023 Creatinine [Mass/Vol] 0.45 mg/dL 0.60-1.20 [facility] Globulin Calc (S) [Mass/Vol] Ordered By: Latrice Sepulveda on 06-06-2023 Globulin (S) [Mass/Vol] 2.4 g/dL [facility] Glucose [Mass/volume] in Ser um or PlasmaOrdered By: Latrice Sepulveda on 06-06-2023 Glucose [Mass/Vol] 89 mg/dL 70-100 [facility] Comment on above: ADA recommended refe rence rangeRandom Glucose Reference Range is dependent on time and content of last meal. Glucose of more than 200 mg/dL in a nonstressed, ambulatory subject supports the diagnosis of Diabetes Mellitus. No Panel InformationOrdered By: Latrice Sepulveda on 06-06-2023 Estimated GFR (CKD-EPI) > 60.0 mL/Min [facility] Creatinine Clearance (Chem N/A [facility] Parathyrin.intact [Mass/volu me] in Serum or PlasmaOrdered By: Latrice Sepulveda on 06-06-2023 Parathyrin.intact [Mass/Vol] 45.8 pg/mL [facility] Parathyroid Hormone Intacton 06-06-2023 Parathyroid Hormone Intact 45.8 pg/mL Normal [facility] Comment on above: Result Comment: PERF ORMED BY: [facility] [address] [place] [address] PATHOLOGIST DAYTIME BABYSITTER JERRY CASTRO M.D. Performed By: #### P TH, CMP, [id number] #### [facility] [address] #### [id number] #### [facility] , Potassium [Moles/volume] in Serum or PlasmaOrdered By: Latrice Sepulveda on 06-06-2023 Potassium [Moles/Vol] 3.7 mmol/L 3.5-5.1 [facility] Protein [Mass/volume] in Ser um or PlasmaOrdered By: Latrice Sepulveda on 06-06-2023 Protein [Mass/Vol] 5.9 g/dL 6.4-8.9 [facility] Serum or plasma albumin/glob ulin mass ratioOrdered By: Latrice Sepulveda on 06-06-2023 Albumin/Globulin [Mass ratio] 1.5 {ratio} [facility] Serum or plasma anion gap de terminationOrdered By: Latrice Sepulveda on 06-06-2023 Anion gap [Moles/Vol] 9.9 mmol/L 6.0-15.0 [facility] Serum or plasma calcitriol m easurement (mass/volume)Ordered By: Latrice Sepulveda on 06-06-2023 1,25-dihydroxyvitamin D3 [Mass/Vol] 123.0 pg/mL 24.8-81.5 [facility] Comment on above: Performed at: - [address] [id number] Director: Dinora Alvarenga MD, Phone: [phone] Sodium [Moles/volume] in Ser um or PlasmaOrdered By: Latrice Sepulveda on 06-06-2023 Sodium [Moles/Vol] 138 mmol/L 136-145 [facility] Urea nitrogen [Mass/volume] in Serum or PlasmaOrdered By: Latrice Sepulveda on 06-06-2023 Urea nitrogen [Mass/Vol] 5 mg/dL 7-25 [facility] Vitamin D 25 Hydroxy Totalon 06-06-2023 Vitamin D 25 Hydroxy Total 22.4 ng/mL Low 30-100 [facility] Comment on above: Result Comment: HARVINDER MIN D STATUS 25(OH)VITAMIN D RANGE (ng/mL) Deficient <20 Insufficient 20 to <30 Sufficient 30 to 100 Reference: Lino Pena, Gildardo MARTELL, et al. Evaluation,treatment, and prevention of vitamin D deficiency; an Endocrine Society clinical practice guideline. JCEM. 2010; 96(7):1911-. PERFORMED BY: [address] [address] PATHOLOGIST DAYTIME BABYSITTER JERRY CASTRO M.D. Performed By: #### H CGQNT #### [facility] [address] [place] [address] [facility] Vitamin D+Metabolites [Mass/ volume] in Serum or PlasmaOrdered By: Latrice Sepulveda on 06-06-2023 Vitamin D+Metabolites [Mass/Vol] 22.4 ng/mL 30-100 [facility] Comment on above: VITAMIN D STATUS 25( [place])VITAMIN D RANGE (ng/mL) Deficient <20 Insufficient 20 to <30Sufficient 30 to 100Reference: Lino Pena Bischoff-Ferrari HA, et al. Evaluation,treatment, and prevention of vitamin D deficiency; an Endocrine Society clinical practice guideline. JCEM. 2010; 96(7):1911-30. Vitamin D 25 Hydroxy Totalon 05-06-2023 Vitamin D 25 Hydroxy Total 21.0 ng/mL Low 30-100 [facility] Comment on above: Order Comment: NON F ASTING Result Comment: HARVINDER MIN D STATUS 25(OH)VITAMIN D RANGE (ng/mL) Deficient <20 Insufficient 20 to <30 Sufficient 30 to 100 Reference: Lino Pena Bischoff-Ferrari HA, et al. Evaluation,treatment, and prevention of vitamin D deficiency; an Endocrine Society clinical practice guideline. JCEM. 2010; 96(7):1911-30. PERFORMED BY: [address] [address] PATHOLOGIST DAYTIME BABYSITTER JERRY CASTRO M.D. Performed By: #### V [id number] #### [facility] [address] [place] [address] [facility] Vitamin D+Metabolites [Mass/ volume] in Serum or PlasmaOrdered By: Page eastman 05-06-2023 Vitamin D+Metabolites [Mass/Vol] 21.0 ng/mL 30-100 [facility] Comment on above: VITAMIN D [...] 01-24-2023 ALT [Catalytic activity/Vol] 20 U/L 7-52 [facility] Albumin [Mass/volume] in Ser um or Plasma by Bromocresol green (BCG) dye binding methoOrdered By: Sarmad Luque on 01-24-2023 Albumin BCG dye [Mass/Vol] 4.7 g/dL 3.5-5.7 [facility] Alkaline phosphatase [Enzyma tic activity/volume] in Serum or PlasmaOrdered By: Sarmad Luque on 01-24-2023 ALP [Catalytic activity/Vol] 71 U/L 34-104 [facility] Aspartate aminotransferase [ Enzymatic activity/volume] in Serum or PlasmaOrdered By: Sarmad Luque on 01-24-2023 AST [Catalytic activity/Vol] 14 U/L 13-39 [facility] Automated erythrocytes count in urine sediment (number/area)Ordered By: Sarmad Luque on 01-24-2023 RBC Auto (Urine sed) [#/Area] 20-49 [HPF] 0-4 [facility] Automated leukocytes count i n urine sediment (number/area)Ordered By: Sarmad Luuqe on 01-24-2023 WBC Auto (Urine sed) [#/Area] 1-2 [HPF] 0-4 [facility] Basic Metabolic Panelon 01-07 Anion gap [Moles/Vol] 11.4 mmol/L Normal 6.0-15.0 [facility] Comment on above: Performed By: #### C BC, HEPATIC, BMP, LIPASE #### [address] [place] [address] [place] Calcium [Mass/Vol] 9.0 mg/dL Normal 8.6-10.3 [facility] Comment on above: Performed By: #### C BC, HEPATIC, BMP, LIPASE #### [facility] [address] [place] [address] [place] Chloride [Moles/Vol] 105 mmol/L Normal 98-107 [facility] Comment on above: Performed By: #### C BC, HEPATIC, BMP, LIPASE #### [facility] [address] [place] [address] [place] CO2 [Moles/Vol] 25.0 mmol/L Normal 21.0-31.0 [facility] Comment on above: Performed By: #### C BC, HEPATIC, BMP, LIPASE #### [facility] [address] Creatinine [Mass/Vol] 0.67 mg/dL Normal 0.60-1.20 [facility] Comment on above: Performed By: #### C BC, HEPATIC, BMP, LIPASE #### [facility] [address] [place] [address] [place] Creatinine Clr Calc Pharmacy 103.40 [facility] Comment on above: Performed By: #### C BC, HEPATIC, BMP, LIPASE #### [facility] [address] [place] [address] [place] GFR/1.73 sq M.predicted MDRD (S/P/Bld) [Vol rate/Area] mL/min/{1.73_m2} [facility] Comment on above: Performed By: #### C BC, HEPATIC, BMP, LIPASE #### [facility] [address] [place] [address] [place] Glucose [Mass/Vol] 89 mg/dL Normal 70-100 [facility] Comment on above: Result Comment: [place] Glucose Reference Range is dependent on time and content of last meal. Glucose of more than 200 mg/dL in a nonstressed, ambulatory subject supports the diagnosis of Diabetes Mellitus. ADA recommended reference range Performed By: #### C BC, HEPATIC, BMP, LIPASE #### [facility] [address] [place] [address] [place] Potassium [Moles/Vol] 3.4 mmol/L Low 3.5-5.1 [facility] Comment on above: Performed By: #### C BC, HEPATIC, BMP, LIPASE #### [facility] [address] [place] [address] [place] Sodium [Moles/Vol] 138 mmol/L Normal 136-145 [facility] Comment on above: Performed By: #### C BC, HEPATIC, BMP, LIPASE #### [facility] [address] Urea nitrogen [Mass/Vol] 6 mg/dL Low 7-25 [facility] Comment on above: Performed By: #### C BC, HEPATIC, BMP, LIPASE #### [facility] [address] [place] [address] [place] Basophils Auto (Bld) [#/Vol] Ordered By: Sarmad Luque on 01-24-2023 Basophils (Bld) [#/Vol] 0.1 10*3/uL 0.0-0.2 [facility] Basophils/100 WBC Auto (Bld) Ordered By: Sarmad Luque on 01-24-2023 Basophils/100 WBC (Bld) 0.8 % . [facility] Bilirubin Test strip Ql (U)O rdered By: Sarmad Luque on 01-24-2023 Bilirubin Ql (U) Negative Negative [facility] Bilirubin.direct [Mass/volum e] in Serum or PlasmaOrdered By: Sarmad Luque on 01-24-2023 Bilirubin.direct [Mass/Vol] 0.20 mg/dL 0.03-0.18 [facility] Bilirubin.total [Mass/volume ] in Serum or PlasmaOrdered By: Sarmad Luque on 01-24-2023 Bilirubin [Mass/Vol] 0.9 mg/dL 0.3-1.0 [facility] Calcium [Mass/volume] in Ser um or PlasmaOrdered By: Sarmad Luque on 01-24-2023 Calcium [Mass/Vol] 9.0 mg/dL 8.6-10.3 [facility] Carbon dioxide, total [Moles /volume] in Serum or PlasmaOrdered By: Sarmad Luque on 01-24-2023 CO2 [Moles/Vol] 25.0 mmol/L 21.0-31.0 [facility] Chloride [Moles/volume] in S gris or PlasmaOrdered By: Sarmad Luque on 01-24-2023 Chloride [Moles/Vol] 105 mmol/L 98-107 [facility] Choriogonadotropin.beta subu nit [Units/volume] in Serum or PlasmaOrdered By: Sarmad Luque on 01-24-2023 HCG.beta subunit Qn 120.64 m[IU]/mL [facility] Comment on above: Approximate Approxim ate hCG Gestational Age Range (mIU/ml) (weeks)0.2-1 5-50 1-2 50-500 2-3 100-5,000 3-4 500-10,000 4-5 1,000-50,000 5-6 10,000-100,000 6-8 15,000-200,000 8-12 10,000-100,000 Color Auto (U)Ordered By: Eric red Ene on 01-24-2023 Color (U) Yellow Yellow [facility] Complete Blood Count Auto Di ffon 01-24-2023 Basophils (Bld) [#/Vol] 0.1 10*3/uL Normal 0.0-0.2 [facility] Comment on above: Result Comment: PERF ORMED BY: [place] [address] PATHOLOGIST DAYTIME BABYSITTER JERRY CASTRO M.D. Performed By: #### C BC, HEPATIC, BMP, LIPASE #### [facility] [address] Basophils/100 WBC (Bld) 0.8 % Normal . [facility] Comment on above: Performed By: #### C BC, HEPATIC, BMP, LIPASE #### [facility] [address] Eosinophils (Bld) [#/Vol] 0.1 10*3/uL Normal 0.0-0.45 [facility] Comment on above: Performed By: #### C BC, HEPATIC, BMP, LIPASE #### [facility] [address] Eosinophils/100 WBC (Bld) 1.3 % Normal . [facility] Comment on above: Performed By: #### C BC, HEPATIC, BMP, LIPASE #### [facility] [address] Erythrocyte distribution width (RBC) [Ratio] 13.5 % Normal 11.9-15.3 [facility] Comment on above: Performed By: #### C BC, HEPATIC, BMP, LIPASE #### [address] Hematocrit (Bld) [Volume fraction] 41.4 % Normal 34.0-46.4 [facility] Comment on above: Performed By: #### C BC, HEPATIC, BMP, LIPASE #### [address] Hemoglobin (Bld) [Mass/Vol] 14.1 g/dL Normal 11.8-15.4 [facility] Comment on above: Performed By: #### C BC, HEPATIC, BMP, LIPASE #### [address] Lymphocytes (Bld) [#/Vol] 2.4 10*3/uL Normal 1.00-4.8 [facility] Comment on above: Performed By: #### C BC, HEPATIC, BMP, LIPASE #### [address] Lymphocytes/100 WBC (Bld) 31.9 % Normal . [facility] Comment on above: Performed By: #### C BC, HEPATIC, BMP, LIPASE #### [address] MCH (RBC) [Entitic mass] 28.8 pg Normal 24.7-34.3 [facility] Comment on above: Performed By: #### C BC, HEPATIC, BMP, LIPASE #### [address] MCV (RBC) [Entitic vol] 84.3 fL Normal 80-100 [facility] Comment on above: Performed By: #### C BC, HEPATIC, BMP, LIPASE #### [address] Mean Corpuscular HGB Conc 34.1 g/dL Normal 32.0-35.0 [facility] Comment on above: Performed By: #### C BC, HEPATIC, BMP, LIPASE #### [address] Monocytes (Bld) [#/Vol] 0.5 10*3/uL Normal 0.0-0.8 [facility] Comment on above: Performed By: #### C BC, HEPATIC, BMP, LIPASE #### [address] Monocytes/100 WBC (Bld) 17.21 % Normal 0.00-20.00 [facility] Comment on above: Performed By: #### C BC, HEPATIC, BMP, LIPASE #### [address] Monocytes/100 WBC (Bld) 7.3 % Normal . [facility] Comment on above: Performed By: #### C BC, HEPATIC, BMP, LIPASE #### [address] Neutrophils (Bld) [#/Vol] 4.3 10*3/uL Normal 1.8-7.7 [facility] Comment on above: Performed By: #### C BC, HEPATIC, BMP, LIPASE #### [address] Neutrophils/100 WBC (Bld) 58.7 % Normal . [facility] Comment on above: Performed By: #### C BC, HEPATIC, BMP, LIPASE #### [address] NRBC% 0.1 /100{WBC} Normal 0-0.5 [facility] Comment on above: Performed By: #### C BC, HEPATIC, BMP, LIPASE #### [address] Platelet mean volume (Bld) [Entitic vol] 9.2 fL Normal 6.3-10.7 [facility] Comment on above: Performed By: #### C BC, HEPATIC, BMP, LIPASE #### [facility] [address] Platelets (Bld) [#/Vol] 222 10*3/uL Normal 150-450 [facility] Comment on above: Performed By: #### C BC, HEPATIC, BMP, LIPASE #### [facility] [address] RBC (Bld) [#/Vol] 4.91 10*6/uL Normal 3.60-5.00 [facility] Comment on above: Performed By: #### C BC, HEPATIC, BMP, LIPASE #### [address] WBC (Bld) [#/Vol] 7.4 10*3/uL Normal 3.8-11.6 [facility] Comment on above: Performed By: #### C BC, HEPATIC, BMP, LIPASE #### [address] Creatinine [Mass/volume] in Serum or PlasmaOrdered By: Sarmad Luque on 01-24-2023 Creatinine [Mass/Vol] 0.67 mg/dL 0.60-1.20 [facility] Dipstick and Microscopicon 0 01-24-2023 Appearance (U) Cloudy Critically abnormal Clear [facility] Comment on above: Order Comment: Name Collection Type:: Clean-Voided Midstream Performed By: #### U HCG, ADDONUAPLUS #### [facility] [address] [place] [address] [place] Bacteria,Urine None Seen Normal None Seen [facility] Comment on above: Order Comment: Name Collection Type:: Clean-Voided Midstream Performed By: #### U HCG, ADDONUAPLUS #### [facility] [address] [place] [address] [place] Bilirubin,Urine Negative Normal Negative [facility] Comment on above: Order Comment: Name Collection Type:: Clean-Voided Midstream Performed By: #### U HCG, ADDONUAPLUS #### [facility] [address] [place] [address] [place] Color (U) Yellow Normal Yellow [facility] Comment on above: Order Comment: Name Collection Type:: Clean-Voided Midstream Performed By: #### U HCG, ADDONUAPLUS #### [facility] [address] [place] [address] Glucose Ql (U) Normal Normal Normal [facility] Comment on above: Order Comment: Name Collection Type:: Clean-Voided Midstream Performed By: #### U HCG, ADDONUAPLUS #### [facility] [address] [place] [address] [place] Hyaline Casts,Urine 0-8 Normal 0-8 [facility] Comment on above: Order Comment: Name Collection Type:: Clean-Voided Midstream Performed By: #### U HCG, ADDONUAPLUS #### [facility] [address] [place] [address] [place] Ketones Ql (U) Trace High Negative [facility] Comment on above: Order Comment: Name Collection Type:: Clean-Voided Midstream Performed By: #### U HCG, ADDONUAPLUS #### [facility] [address] [place] [address] Leukocyte esterase Test strip Ql (U) 1+ High Negative [facility] Comment on above: Order Comment: Name Collection Type:: Clean-Voided Midstream Performed By: #### U HCG, ADDONUAPLUS #### [facility] [address] [place] [address] [place] Nitrite,Urine Negative Normal Negative [facility] Comment on above: Order Comment: Name Collection Type:: Clean-Voided Midstream Performed By: #### U HCG, ADDONUAPLUS #### [facility] [address] [place] [address] [place] Occult Blood,Urine 2+ High Negative [facility] Comment on above: Order Comment: Name Collection Type:: Clean-Voided Midstream Performed By: #### U HCG, ADDONUAPLUS #### [facility] [address] [place] [address] pH (U) 6.0 [pH] Normal 5.0-9.0 [facility] Comment on above: Order Comment: Name Collection Type:: Clean-Voided Midstream Performed By: #### U HCG, ADDONUAPLUS #### [address] Protein,Urine Trace High Negative [facility] Comment on above: Order Comment: Name Collection Type:: Clean-Voided Midstream Performed By: #### U HCG, ADDONUAPLUS #### [address] RBC,Urine 20-49 High 0-4 [facility] Comment on above: Order Comment: Name Collection Type:: Clean-Voided Midstream Performed By: #### U HCG, ADDONUAPLUS #### [address] Specificy [place],Urine 1.022 Normal 1.001-1.030 [facility] Comment on above: Order Comment: Name Collection Type:: Clean-Voided Midstream Performed By: #### U HCG, ADDONUAPLUS #### [address] Squamous Epithelial Cell,Urine 5-9 High 0-2 [facility] Comment on above: Order Comment: Name Collection Type:: Clean-Voided Midstream Performed By: #### U HCG, ADDONUAPLUS #### [facility] [address] [place] [address] Urobilinogen,Urine Normal Normal Normal [facility] Comment on above: Order Comment: Name Collection Type:: Clean-Voided Midstream Performed By: #### U HCG, ADDONUAPLUS #### [address] WBC,Urine 1-2 Normal 0-4 [facility] Comment on above: Order Comment: Name Collection Type:: Clean-Voided Midstream Performed By: #### U HCG, ADDONUAPLUS #### [address] Eosinophils Auto (Bld) [#/Vo l]Ordered By: Sarmad Luque on 01-24-2023 Eosinophils (Bld) [#/Vol] 0.1 10*3/uL 0.0-0.45 [facility] Eosinophils/100 WBC Auto (Bl d)Ordered By: Sarmad Luque on 01-24-2023 Eosinophils/100 WBC (Bld) 1.3 % . [facility] Erythrocyte distribution wid th Auto (RBC) [Ratio]Ordered By: Sarmad Luque on 01-24-2023 Erythrocyte distribution width (RBC) [Ratio] 13.5 % 11.9-15.3 [facility] Globulin Calc (S) [Mass/Vol] Ordered By: Sarmad Luque on 01-24-2023 Globulin (S) [Mass/Vol] 2.7 g/dL [facility] Glucose [Mass/volume] in Ser um or PlasmaOrdered By: Sarmad Luque on 01-24-2023 Glucose [Mass/Vol] 89 mg/dL 70-100 [facility] Comment on above: ADA recommended refe rence rangeRandom Glucose Reference Range is dependent on time and content of last meal. Glucose of more than 200 mg/dL in a nonstressed, ambulatory subject supports the diagnosis of Diabetes Mellitus. HCG ( test) IAshane d Ql (U)Ordered By: Sarmad Luque on 01-24-2023 HCG ( test) Ql (U) Positive [facility] HCG,Quantitativeon 3 HCG,Quantitative 120.64 m[iU]/mL Normal [facility] [place] Comment on above: Result Comment: Appr oximate Approximate hCG Gestational Age Range (mIU/ml) (weeks) 0.2-1 5-50 1-2 50-500 2-3 100-5,000 3-4 500-10,000 4-5 1,000-50,000 5-6 10,000-100,000 6-8 15,000-200,000 8-12 10,000-100,000 PERFORMED BY: [facility] [place] [address] PATHOLOGIST DAYTIME BABYSITTER JERRY CASTRO M.D. Performed By: #### H CGQNT #### [place] [address] [place] HCG,Urineon 01-24-2023 Beta HCG ( test) Ql (U) Positive High [facility] Comment on above: Order Comment: Name Collection Type:: Clean-Voided Midstream Result Comment: PERF ORMED BY: [place] [address] PATHOLOGIST DAYTIME BABYSITTER JERRY CASTRO M.D. Performed By: #### U HCG, ADDONUAPLUS #### [address] Hematocrit Auto (Bld) [Volum e fraction]Ordered By: Sarmad Luque on 01-24-2023 Hematocrit (Bld) [Volume fraction] 41.4 % 34.0-46.4 [facility] Hemoglobin [Mass/volume] in BloodOrdered By: Sarmad Luque on 01-24-2023 Hemoglobin (Bld) [Mass/Vol] 14.1 g/dL 11.8-15.4 [facility] Hepatic Panelon 01-24-2023 Albumin [Mass/Vol] 4.7 g/dL Normal 3.5-5.7 [facility] Comment on above: Performed By: #### C BC, HEPATIC, BMP, LIPASE #### [address] Albumin/Globulin [Mass ratio] 1.7 {ratio} Normal [facility] Comment on above: Performed By: #### C BC, HEPATIC, BMP, LIPASE #### [address] ALP [Catalytic activity/Vol] 71 U/L Normal 34-104 [facility] Comment on above: Performed By: #### C BC, HEPATIC, BMP, LIPASE #### [address] ALT [Catalytic activity/Vol] 20 U/L Normal 7-52 [facility] Comment on above: Performed By: #### C BC, HEPATIC, BMP, LIPASE #### [address] [place] [address] [place] AST [Catalytic activity/Vol] 14 U/L Normal 13-39 [facility] Comment on above: Performed By: #### C BC, HEPATIC, BMP, LIPASE #### [facility] [address] Bilirubin [Mass/Vol] 0.9 mg/dL Normal 0.3-1.0 [facility] Comment on above: Performed By: #### C BC, HEPATIC, BMP, LIPASE #### [address] Bilirubin,Indirect 0.7 mg/dL Normal [facility] Comment on above: Performed By: #### C BC, HEPATIC, BMP, LIPASE #### [address] Bilirubin.indirect [Mass/Vol] 0.20 mg/dL High 0.03-0.18 [facility] Comment on above: Performed By: #### C BC, HEPATIC, BMP, LIPASE #### [address] Globulin (S) [Mass/Vol] 2.7 g/dL Normal [facility] Comment on above: Performed By: #### C BC, HEPATIC, BMP, LIPASE #### [address] Protein [Mass/Vol] 7.4 g/dL Normal 6.4-8.9 [facility] Comment on above: Performed By: #### C BC, HEPATIC, BMP, LIPASE #### [address] Ketones Auto test strip (U) [Mass/Vol]Ordered By: Sarmad Luque on 01-24-2023 Ketones (U) [Mass/Vol] Trace Negative [facility] - UrinalysisOrder ed By: Sarmad Luque on 01-24-2023 Hyaline casts LM Ql (Urine sed) 0-8 [LPF] 0-8 [facility] Leukocytes [#/volume] correc mague for nucleated erythrocytes in Blood by Automated counOrdered By: Sarmad Luque on 01-24-2023 WBC corrected for nucl RBC Auto (Bld) [#/Vol] 7.4 10*3/uL 3.8-11.6 [facility] Lipaseon 01-24-2023 Lipase [Catalytic activity/Vol] 47.0 U/L Normal 11.0-82.0 [facility] Comment on above: Result Comment: PERF ORMED BY: [facility] [address] [place] [address] PATHOLOGIST DAYTIME BABYSITTER JERRY CASTRO M.D. Performed By: #### C BC, HEPATIC, BMP, LIPASE #### [facility] [address] Lipase [Enzymatic activity/v olume] in Serum or PlasmaOrdered By: Sarmad Luque on 01-24-2023 Lipase [Catalytic activity/Vol] 47.0 U/L 11.0-82.0 [facility] Lymphocytes Auto (Bld) [#/Vo l]Ordered By: Sarmad Luque on 01-24-2023 Lymphocytes (Bld) [#/Vol] 2.4 10*3/uL 1.00-4.8 [facility] Lymphocytes/100 WBC Auto (Bl d)Ordered By: Sarmad Luque on 01-24-2023 Lymphocytes/100 WBC (Bld) 31.9 % . [facility] MCH Auto (RBC) [Entitic mass ]Ordered By: Sarmad Luque on 01-24-2023 MCH (RBC) [Entitic mass] 28.8 pg 24.7-34.3 [facility] MCHC Auto (RBC) [Mass/Vol]Or dered By: Sarmad Luque on 01-24-2023 MCHC (RBC) [Mass/Vol] 34.1 g/dL 32.0-35.0 [facility] MCV Auto (RBC) [Entitic vol] Ordered By: Sarmad Luque on 01-24-2023 MCV (RBC) [Entitic vol] 84.3 fL 80-100 [facility] Monocyte distribution width [Entitic volume] in Blood by AutomatedOrdered By: Sarmad Luque on 01-24-2023 Monocyte distribution width Auto (Bld) [Entitic vol] 17.21 % 0.00-20.00 [facility] Monocytes Auto (Bld) [#/Vol] Ordered By: Sarmad Luque on 01-24-2023 Monocytes (Bld) [#/Vol] 0.5 10*3/uL 0.0-0.8 [facility] Monocytes/100 WBC Auto (Bld) Ordered By: Sarmad Luque on 01-24-2023 Monocytes/100 WBC (Bld) 7.3 % . [facility] Neutrophils Auto (Bld) [#/Vo l]Ordered By: Sarmad Luque on 01-24-2023 Neutrophils (Bld) [#/Vol] 4.3 10*3/uL 1.8-7.7 [facility] Neutrophils/100 WBC Auto (Bl d)Ordered By: Sarmad Luque on 01-24-2023 Neutrophils/100 WBC (Bld) 58.7 % . [facility] Nitrite Test strip Ql (U)Ord ered By: Sarmad Luque on 01-24-2023 Nitrite Ql (U) Negative Negative [facility] No Panel InformationOrdered By: Sarmad Luque on 01-24-2023 Estimated GFR (CKD-EPI) > 60.0 mL/Min [facility] Creatinine Clearance (Chem 103.40 [facility] Nucleated erythrocytes [Pres ence] in Blood by Automated countOrdered By: Sarmad Luque on 01-24-2023 Nucleated RBC Auto Ql (Bld) 0.1 /100{WBC} 0-0.5 [facility] Platelet mean volume Auto (B ld) [Entitic vol]Ordered By: Sarmad Luque on 01-24-2023 Platelet mean volume (Bld) [Entitic vol] 9.2 fL 6.3-10.7 [facility] Platelets Auto (Bld) [#/Vol] Ordered By: Sarmad Luque on 01-24-2023 Platelets (Bld) [#/Vol] 222 10*3/uL 150-450 [facility] Potassium [Moles/volume] in Serum or PlasmaOrdered By: Sarmad Luque on 01-24-2023 Potassium [Moles/Vol] 3.4 mmol/L 3.5-5.1 [facility] Protein Auto test strip (U) [Mass/Vol]Ordered By: Sarmad Luque on 01-24-2023 Protein (U) [Mass/Vol] Trace mg/dL Negative [facility] Protein [Mass/volume] in Ser um or PlasmaOrdered By: Sarmad Luque on 01-24-2023 Protein [Mass/Vol] 7.4 g/dL 6.4-8.9 [facility] RBC Auto (Bld) [#/Vol]Ordere d By: Sarmad Luque on 01-24-2023 RBC (Bld) [#/Vol] 4.91 10*6/uL 3.60-5.00 [facility] Serum or plasma albumin/glob ulin mass ratioOrdered By: Sarmad Luque on 01-24-2023 Albumin/Globulin [Mass ratio] 1.7 {ratio} [facility] Serum or plasma anion gap de terminationOrdered By: Sarmad Luque on 01-24-2023 Anion gap [Moles/Vol] 11.4 mmol/L 6.0-15.0 [facility] Serum or plasma non-glucuron idated bilirubin measurement (mass/volume)Ordered By: Sarmad Luque on 01-24-2023 Bilirubin.indirect [Mass/Vol] 0.7 mg/dL [facility] Sodium [Moles/volume] in Ser um or PlasmaOrdered By: Sarmad Luque on 01-24-2023 Sodium [Moles/Vol] 138 mmol/L 136-145 [facility] Specific gravity Auto test s trip (U) [Rel density]Ordered By: Sarmad Luque on 01-24-2023 Specific gravity (U) [Rel density] 1.022 1.001-1.030 [facility] Squamous epithelial cells de tection in urine sediment by light microscopyOrdered By: Sarmad Luque on 01-24-2023 Epithelial cells.squamous LM Ql (Urine sed) 5-9 [HPF] 0-2 [facility] US OB transvaginalon 023 US OB transvaginal [facility] [place] [address] Ultrasound Report Signed Patient: Elyssa Smith MR#: [id number] : 1990 Acct:[id number] Age/Sex: 32 / F ADM Date: 01/24/23 Loc: ER Room: Type: [facility] ER Attending Dr: Ordering Provider: Sarmad Luque DO Date of Service: 01/24/23 US/US OB <= 14 weeks fetus: Abdominal Pain ([id number]) US/US OB transvaginal: PAIN Copies to: Sarmad [...] Carrillo Ziegler M.D.01/24/2023 2:06 PM Dictation Location: [place] [address] Tech: Ashely Doll Transcribed By: SILVINA 01/24/23 140 Dictated By: Carrillo Ziegelr II, MD 01/24/23 1401 Signed By: 01/24/23 140 [facility] US renal BIon 01-24-2023 US renal BI [facility] [place] [address] [place], [place] [id number] Ultrasound Report Signed Patient: Elyssa Smith MR#: [id number] : 1990 Acct:[id number] Age/Sex: 32 / F ADM Date: 01/24/23 Loc: ER Room: Type: [facility] ER Attending Dr: Ordering Provider: Sarmad [...] Carrillo Ziegler M.D.01/24/2023 2:12 PM Dictation Location: [place] [address] Tech: Ashely Doll Transcribed By: SILVINA 01/24/23 1412 Dictated By: Carrillo Ziegler II, MD 01/24/23 1410 Signed By: 01/24/23 141 [facility] Urea nitrogen [Mass/volume] in Serum or PlasmaOrdered By: Sarmad Luque on 01-24-2023 Urea nitrogen [Mass/Vol] 6 mg/dL 7-25 [facility] Urine bacteria detection by automated methodOrdered By: Sarmad Luque on 01-24-2023 Bacteria Auto Ql (U) None seen None Seen [facility] Urine clarity by refractomet ry automatedOrdered By: Sarmad Ene on 01-24-2023 Clarity Refractometry automated (U) Cloudy Clear [facility] Urine glucose measurement by automated test strip (mass/volume)Ordered By: Sarmad Luque on 01-24-2023 Glucose Auto test strip (U) [Mass/Vol] Normal mg/dL Normal [facility] Urine hemoglobin detection b y automated test stripOrdered By: Sarmad Luque on 01-24-2023 Hemoglobin Auto test strip Ql (U) 2+ Negative [facility] Urine leukocyte esterase det ection by automated test stripOrdered By: Sarmad Luque on 01-24-2023 Leukocyte esterase Auto test strip Ql (U) 1+ Negative [facility] Urobilinogen Auto test strip (U) [Mass/Vol]Ordered By: Sarmad Luque on 01-24-2023 Urobilinogen (U) [Mass/Vol] Normal mg/dL Normal [facility] WBC Auto (Bld) [#/Vol]Ordere d By: Sarmad Luque on 01-24-2023 WBC (Bld) [#/Vol] 7.4 10*3/uL 3.8-11.6 [facility] pH Auto test strip (U)Ordere d By: Sarmad Luque on 01-24-2023 pH (U) 6.0 [pH] 5.0-9.0 [facility] ALFRED with Reflexon 10-27-2022 ALFRED with Reflex Negative Normal Negative [facility] Comment on above: Result Comment: Perf ormed at: CB - [facility] [address] [id number] Rn Clinical Appeals: Ismael Suh PhD, Phone: [phone] PERFORMED BY: [address] [address] PATHOLOGIST DAYTIME BABYSITTER JERRY CASTRO M.D. Performed By: #### H CGQNT #### [facility] [address] Alanine aminotransferase [En zymatic activity/volume] in Serum or PlasmaOrdered By: Page Magaña on 10-27-2022 ALT [Catalytic activity/Vol] 30 U/L 7-52 [facility] Albumin [Mass/volume] in Ser um or Plasma by Bromocresol green (BCG) dye binding methoOrdered By: Page Magaña on 10-27-2022 Albumin BCG dye [Mass/Vol] 4.2 g/dL 3.5-5.7 [facility] Alkaline phosphatase [Enzyma tic activity/volume] in Serum or PlasmaOrdered By: Page Magaña on 10-27-2022 ALP [Catalytic activity/Vol] 86 U/L 34-104 [facility] Aspartate aminotransferase [ Enzymatic activity/volume] in Serum or PlasmaOrdered By: Page Magaña on 10-27-2022 AST [Catalytic activity/Vol] 17 U/L 13-39 [facility] Basophils Auto (Bld) [#/Vol] Ordered By: Page Magaña on 10-27-2022 Basophils (Bld) [#/Vol] 0.1 10*3/uL 0.0-0.2 [facility] Basophils/100 WBC Auto (Bld) Ordered By: Page Magaña on 10-27-2022 Basophils/100 WBC (Bld) 0.6 % . [facility] Bilirubin.total [Mass/volume ] in Serum or PlasmaOrdered By: Page Magaña 10-27-2022 Bilirubin [Mass/Vol] 0.6 mg/dL 0.3-1.0 [facility] Calcium [Mass/volume] in Ser um or PlasmaOrdered By: Page Magaña 10-27-2022 Calcium [Mass/Vol] 9.0 mg/dL 8.6-10.3 [facility] Carbon dioxide, total [Moles /volume] in Serum or PlasmaOrdered By: Page Magaña on 10-27-2022 CO2 [Moles/Vol] 24.7 mmol/L 21.0-31.0 [facility] Chloride [Moles/volume] in S gris or PlasmaOrdered By: Page Magaña on 10-27-2022 Chloride [Moles/Vol] 107 mmol/L 98-107 [facility] Cholesterol [Mass/volume] in Serum or PlasmaOrdered By: Page Magaña on 10-27-2022 Cholesterol [Mass/Vol] 209 mg/dL 140-200 [facility] Comment on above: Chol less than 200 m g/dl low riskChol 201-239 mg/dl borderline riskChol 240 mg/dl and greater high risk Cholesterol in LDL Calc [Mas s/Vol]Ordered By: Page Magaña on 10-27-2022 Cholesterol in LDL [Mass/Vol] 155 mg/dL 0-100 [facility] Comment on above: LDL ATP III CLASSIFI CATIONLDL less than 100 mg/dL OptimalLDL 100-129 mg/dL Near or above optimalLDL 130-159 mg/dL Borderline highLDL 160-189 mg/dL HighLDL greater than 189 mg/dL Very high Cholesterol in VLDL Calc [Ma ss/Vol]Ordered By: Page Magaña on 10-27-2022 Cholesterol in VLDL [Mass/Vol] 11 mg/dL [facility] Complete Blood Count Auto Di ffon 10-27-2022 Basophils (Bld) [#/Vol] 0.1 10*3/uL Normal 0.0-0.2 [facility] Comment on above: Result Comment: PERF ORMED BY: [place] [address] PATHOLOGIST DAYTIME BABYSITTER JERRY CASTRO M.D. Performed By: #### H CGQNT #### [facility] [address] [place] [address] [place] Basophils/100 WBC (Bld) 0.6 % Normal . [facility] Comment on above: Performed By: #### H CGQNT #### [facility] [address] [place] [address] [place] Eosinophils (Bld) [#/Vol] 0.1 10*3/uL Normal 0.0-0.45 [facility] Comment on above: Performed By: #### H CGQNT #### [facility] [address] [place] [address] [place] Eosinophils/100 WBC (Bld) 1.6 % Normal . [facility] Comment on above: Performed By: #### H CGQNT #### [address] Erythrocyte distribution width (RBC) [Ratio] 14.4 % Normal 11.9-15.3 [facility] Comment on above: Performed By: #### H CGQNT #### [address] Hematocrit (Bld) [Volume fraction] 40.5 % Normal 34.0-46.4 [facility] Comment on above: Performed By: #### H CGQNT #### [address] Hemoglobin (Bld) [Mass/Vol] 13.5 g/dL Normal 11.8-15.4 [facility] Comment on above: Performed By: #### H CGQNT #### [address] Lymphocytes (Bld) [#/Vol] 2.8 10*3/uL Normal 1.00-4.8 [facility] Comment on above: Performed By: #### H CGQNT #### [address] Lymphocytes/100 WBC (Bld) 30.3 % Normal . [facility] Comment on above: Performed By: #### H CGQNT #### [address] MCH (RBC) [Entitic mass] 28.1 pg Normal 24.7-34.3 [facility] Comment on above: Performed By: #### H CGQNT #### [address] MCV (RBC) [Entitic vol] 84.6 fL Normal 80-100 [facility] Comment on above: Performed By: #### H CGQNT #### [address] Mean Corpuscular HGB Conc 33.3 g/dL Normal 32.0-35.0 [facility] Comment on above: Performed By: #### H CGQNT #### [facility] [address] [place] [address] [place] Monocytes (Bld) [#/Vol] 0.6 10*3/uL Normal 0.0-0.8 [facility] Comment on above: Performed By: #### H CGQNT #### [facility] [address] [place] [address] [place] Monocytes/100 WBC (Bld) 6.7 % Normal . [facility] Comment on above: Performed By: #### H CGQNT #### [facility] [address] Neutrophils (Bld) [#/Vol] 5.5 10*3/uL Normal 1.8-7.7 [facility] Comment on above: Performed By: #### H CGQNT #### [facility] [address] [place] [address] [place] Neutrophils/100 WBC (Bld) 60.8 % Normal . [facility] Comment on above: Performed By: #### H CGQNT #### [facility] [address] [place] [address] [place] NRBC% 0.3 /100{WBC} Normal 0-0.5 [facility] Comment on above: Performed By: #### H CGQNT #### [facility] [address] [place] [address] [place] Platelet mean volume (Bld) [Entitic vol] 8.9 fL Normal 6.3-10.7 [facility] Comment on above: Performed By: #### H CGQNT #### [facility] [address] [place] [address] [place] Platelets (Bld) [#/Vol] 246 10*3/uL Normal 150-450 [facility] Comment on above: Performed By: #### H CGQNT #### [facility] [address] [place] [address] [place] RBC (Bld) [#/Vol] 4.79 10*6/uL Normal 3.60-5.00 [facility] Comment on above: Performed By: #### H CGQNT #### [facility] [address] [place] [address] WBC (Bld) [#/Vol] 9.1 10*3/uL Normal 3.8-11.6 [facility] Comment on above: Performed By: #### H CGQNT #### [facility] [address] [place] [address] Comprehensive Metabolic Pane mauricio 10-27-2022 Albumin [Mass/Vol] 4.2 g/dL Normal 3.5-5.7 [facility] Comment on above: Order Comment: PT IS FASTING Performed By: #### H CGQNT #### [address] Albumin/Globulin [Mass ratio] 1.8 {ratio} Normal [facility] Comment on above: Order Comment: PT IS FASTING Performed By: #### H CGQNT #### [address] ALP [Catalytic activity/Vol] 86 U/L Normal 34-104 [facility] Comment on above: Order Comment: PT IS FASTING Performed By: #### H CGQNT #### [address] ALT [Catalytic activity/Vol] 30 U/L Normal 7-52 [facility] Comment on above: Order Comment: PT IS FASTING Performed By: #### H CGQNT #### [facility] [address] [place] [address] Anion gap [Moles/Vol] 10.6 mmol/L Normal 6.0-15.0 [facility] Comment on above: Order Comment: PT IS FASTING Performed By: #### H CGQNT #### [address] AST [Catalytic activity/Vol] 17 U/L Normal 13-39 [facility] Comment on above: Order Comment: PT IS FASTING Performed By: #### H CGQNT #### [address] [place] [address] [place] Bilirubin [Mass/Vol] 0.6 mg/dL Normal 0.3-1.0 [facility] Comment on above: Order Comment: PT IS FASTING Performed By: #### H CGQNT #### [facility] [address] Calcium [Mass/Vol] 9.0 mg/dL Normal 8.6-10.3 [facility] Comment on above: Order Comment: PT IS FASTING Performed By: #### H CGQNT #### [facility] [address] Chloride [Moles/Vol] 107 mmol/L Normal 98-107 [facility] Comment on above: Order Comment: PT IS FASTING Performed By: #### H CGQNT #### [facility] [address] [place] [address] CO2 [Moles/Vol] 24.7 mmol/L Normal 21.0-31.0 [facility] Comment on above: Order Comment: PT IS FASTING Performed By: #### H CGQNT #### [facility] [address] [place] [address] [place] Creatinine [Mass/Vol] 0.62 mg/dL Normal 0.60-1.20 [facility] Comment on above: Order Comment: PT IS FASTING Performed By: #### H CGQNT #### [facility] [address] [place] [address] [place] GFR/1.73 sq M.predicted MDRD (S/P/Bld) [Vol rate/Area] mL/min/{1.73_m2} Normal [facility] Comment on above: Order Comment: PT IS FASTING Performed By: #### H CGQNT #### [facility] [address] [place] [address] [place] Globulin (S) [Mass/Vol] 2.3 g/dL Normal [facility] Comment on above: Order Comment: PT IS FASTING Performed By: #### H CGQNT #### [facility] [address] [place] [address] [place] Glucose [Mass/Vol] 93 mg/dL Normal 70-100 [facility] Comment on above: Order Comment: PT IS FASTING Result Comment: [facility] Glucose Reference Range is dependent on time and content of last meal. Glucose of more than 200 mg/dL in a nonstressed, ambulatory subject supports the diagnosis of Diabetes Mellitus. ADA recommended reference range Performed By: #### H CGQNT #### [facility] [address] [place] [address] Potassium [Moles/Vol] 4.3 mmol/L Normal 3.5-5.1 [facility] Comment on above: Order Comment: PT IS FASTING Performed By: #### H CGQNT #### [facility] [address] [place] [address] Protein [Mass/Vol] 6.5 g/dL Normal 6.4-8.9 [facility] Comment on above: Order Comment: PT IS FASTING Performed By: #### H CGQNT #### [facility] [address] [place] [address] Sodium [Moles/Vol] 138 mmol/L Normal 136-145 [facility] Comment on above: Order Comment: PT IS FASTING Performed By: #### H CGQNT #### [facility] [address] [place] [address] Urea nitrogen [Mass/Vol] 12 mg/dL Normal 7-25 [facility] Comment on above: Order Comment: PT IS FASTING Performed By: #### H CGQNT #### [facility] [address] [place] [address] Creatinine [Mass/volume] in Serum or PlasmaOrdered By: Page Magaña on 10-27-2022 Creatinine [Mass/Vol] 0.62 mg/dL 0.60-1.20 [facility] Eosinophils Auto (Bld) [#/Vo l]Ordered By: Page Magaña on 10-27-2022 Eosinophils (Bld) [#/Vol] 0.1 10*3/uL 0.0-0.45 [facility] Eosinophils/100 WBC Auto (Bl d)Ordered By: Page Magaña on 10-27-2022 Eosinophils/100 WBC (Bld) 1.6 % . [facility] Erythrocyte distribution wid th Auto (RBC) [Ratio]Ordered By: Page Magaña on 10-27-2022 Erythrocyte distribution width (RBC) [Ratio] 14.4 % 11.9-15.3 [facility] Globulin Calc (S) [Mass/Vol] Ordered By: Page Magaña on 10-27-2022 Globulin (S) [Mass/Vol] 2.3 g/dL [facility] Glucose [Mass/volume] in Ser um or PlasmaOrdered By: Page Magaña on 10-27-2022 Glucose [Mass/Vol] 93 mg/dL 70-100 [facility] Comment on above: ADA recommended refe rence rangeRandom Glucose Reference Range is dependent on time and content of last meal. Glucose of more than 200 mg/dL in a nonstressed, ambulatory subject supports the diagnosis of Diabetes Mellitus. Hematocrit Auto (Bld) [Volum e fraction]Ordered By: Page Magaña on 10-27-2022 Hematocrit (Bld) [Volume fraction] 40.5 % 34.0-46.4 [facility] Hemoglobin [Mass/volume] in BloodOrdered By: Page Magaña on 10-27-2022 Hemoglobin (Bld) [Mass/Vol] 13.5 g/dL 11.8-15.4 [facility] Leukocytes [#/volume] correc mague for nucleated erythrocytes in Blood by Automated counOrdered By: Page Magaña on 10-27-2022 WBC corrected for nucl RBC Auto (Bld) [#/Vol] 9.1 10*3/uL 3.8-11.6 [facility] Lipid Panelon 10-27-2022 Cholesterol [Mass/Vol] 209 mg/dL High 140-200 [facility] Comment on above: Order Comment: PT IS FASTING Result Comment: Chol less than 200 mg/dl low risk Chol 201-239 mg/dl borderline risk Chol 240 mg/dl and greater high risk Performed By: #### H CGQNT #### [facility] [address] Cholesterol in HDL [Mass/Vol] 43 mg/dL Normal 35-85 [facility] Comment on above: Order Comment: PT IS FASTING Result Comment: HDL CHOL ATP-III CLASSIFICATION Cardiovascular Risk HDL > or equal to 60 mg/dL LOW HDL < 40 mg/dL HIGH Performed By: #### H CGQNT #### [facility] [address] Cholesterol.total/Poonam sterol in HDL [Mass ratio] 4.9 {ratio} Normal <5.0 [facility] Comment on above: Order Comment: PT IS FASTING Performed By: #### H CGQNT #### [facility] [address] LDL Cholesterol,Calculated 155 mg/dL High 0-100 [facility] Comment on above: Order Comment: PT IS FASTING Result Comment: LDL ATP III CLASSIFICATION LDL less than 100 mg/dL Optimal LDL 100-129 mg/dL Near or above optimal LDL 130-159 mg/dL Borderline high LDL 160-189 mg/dL High LDL greater than 189 mg/dL Very high Performed By: #### H CGQNT #### [address] Triglyceride w/Reflex 55 mg/dL Normal 0-149 [facility] Comment on above: Order Comment: PT IS FASTING Result Comment: TRIG ATP III CLASSIFICATION TRIG less than 150 mg/dL Normal TRIG 150-199 mg/dL Borderline high TRIG 200-500 mg/dL High TRIG greater than 500 mg/dL Very high Standard traceable to the Center for Disease Conrtrol and Prevention (CDC) test method. Performed By: #### H CGQNT #### [facility] [address] [place] [address] VLDL CHOLESTEROL 11 mg/dL Normal [facility] Comment on above: Order Comment: PT IS FASTING Performed By: #### H CGQNT #### [facility] [address] [place] [address] Lymphocytes Auto (Bld) [#/Vo l]Ordered By: Page Magaña on 10-27-2022 Lymphocytes (Bld) [#/Vol] 2.8 10*3/uL 1.00-4.8 [facility] Lymphocytes/100 WBC Auto (Bl d)Ordered By: Page Magaña on 10-27-2022 Lymphocytes/100 WBC (Bld) 30.3 % . [facility] MCH Auto (RBC) [Entitic mass ]Ordered By: Page Magaña on 10-27-2022 MCH (RBC) [Entitic mass] 28.1 pg 24.7-34.3 [facility] MCHC Auto (RBC) [Mass/Vol]Or dered By: Page Magaña on 10-27-2022 MCHC (RBC) [Mass/Vol] 33.3 g/dL 32.0-35.0 [facility] [place] MCV Auto (RBC) [Entitic vol] Ordered By: Page Magaña on 10-27-2022 MCV (RBC) [Entitic vol] 84.6 fL 80-100 [facility] Monocytes Auto (Bld) [#/Vol] Ordered By: Page Magaña on 10-27-2022 Monocytes (Bld) [#/Vol] 0.6 10*3/uL 0.0-0.8 [facility] Monocytes/100 WBC Auto (Bld) Ordered By: Page Magaña on 10-27-2022 Monocytes/100 WBC (Bld) 6.7 % . [facility] Neutrophils Auto (Bld) [#/Vo l]Ordered By: Page Magaña on 10-27-2022 Neutrophils (Bld) [#/Vol] 5.5 10*3/uL 1.8-7.7 [facility] Neutrophils/100 WBC Auto (Bl d)Ordered By: Page Magaña on 10-27-2022 Neutrophils/100 WBC (Bld) 60.8 % . [facility] No Panel InformationOrdered By: aPge Magaña on 10-27-2022 Estimated GFR (CKD-EPI) > 60.0 mL/Min [facility] Creatinine Clearance (Chem N/A [facility] Nucleated erythrocytes [Pres ence] in Blood by Automated countOrdered By: Page Magaña on 10-27-2022 Nucleated RBC Auto Ql (Bld) 0.3 /100{WBC} 0-0.5 [facility] Platelet mean volume Auto (B ld) [Entitic vol]Ordered By: Page Magaña on 10-27-2022 Platelet mean volume (Bld) [Entitic vol] 8.9 fL 6.3-10.7 [facility] Platelets Auto (Bld) [#/Vol] Ordered By: Page Magaña on 10-27-2022 Platelets (Bld) [#/Vol] 246 10*3/uL 150-450 [facility] Potassium [Moles/volume] in Serum or PlasmaOrdered By: Page Magaña on 10-27-2022 Potassium [Moles/Vol] 4.3 mmol/L 3.5-5.1 [facility] Protein [Mass/volume] in Ser um or PlasmaOrdered By: Page Magaña on 10-27-2022 Protein [Mass/Vol] 6.5 g/dL 6.4-8.9 [facility] RBC Auto (Bld) [#/Vol]Ordere d By: Page Magaña on 10-27-2022 RBC (Bld) [#/Vol] 4.79 10*6/uL 3.60-5.00 [facility] Rheumatoid Factoron 10-28-19 Rheumatoid Factor <10.0 Normal <14.0 [facility] Comment on above: Result Comment: Perf ormed at: CB - [facility] [place] [id number] Rn Clinical Appeals: Ismael Suh PhD, Phone: [phone] Performed By: #### H CGQNT #### [facility] [address] [place] [address] Serum or plasma albumin/glob ulin mass ratioOrdered By: Page Magaña on 10-27-2022 Albumin/Globulin [Mass ratio] 1.8 {ratio} [facility] Serum or plasma anion gap de terminationOrdered By: Page Magaña on 10-27-2022 Anion gap [Moles/Vol] 10.6 mmol/L 6.0-15.0 [facility] Serum or plasma high density lipoprotein (HDL) cholesterol measurementOrdered By: Page Magaña on 10-27-2022 Cholesterol in HDL [Mass/Vol] 43 mg/dL 35-85 [facility] Comment on above: HDL CHOL ATP-III CLA SSIFICATION Cardiovascular RiskHDL > or equal to 60 mg/dL LOWHDL < 40 mg/dL HIGH Serum or plasma total choles terol/high density lipoprotein (HDL) cholesterol mass ratOrdered By: Page Magaña on 10-27-2022 Cholesterol.total/Poonam sterol in HDL [Mass ratio] 4.9 {ratio} <5.0 [facility] Sodium [Moles/volume] in Ser um or PlasmaOrdered By: Page Magaña on 10-27-2022 Sodium [Moles/Vol] 138 mmol/L 136-145 [facility] Thyroid Stim Hormone w/Rflxo n 10-27-2022 Thyroid Stim Hormone w/Rflx 0.76 u[iU]/mL Normal 0.45-5.33 [facility] Comment on above: Order Comment: PT IS FASTING Performed By: #### H CGQNT #### [address] Thyrotropin [Units/volume] i n Serum or PlasmaOrdered By: Page Magaña on 10-27-2022 TSH Qn 0.76 m[IU]/L 0.45-5.33 [facility] Triglyceride [Mass/volume] i n Serum or PlasmaOrdered By: Page Magaña on 10-27-2022 Triglyceride [Mass/Vol] 55 mg/dL 0-149 [facility] Comment on above: TRIG ATP III CLASSIF ICATIONTRIG less than 150 mg/dL NormalTRIG 150-199 mg/dL Borderline highTRIG 200-500 mg/dL High TRIG greater than 500 mg/dL Very highStandard traceable to the Center for Disease Conrtrol and Prevention (CDC) test method. Urea nitrogen [Mass/volume] in Serum or PlasmaOrdered By: Page Magaña on 10-27-2022 Urea nitrogen [Mass/Vol] 12 mg/dL 7-25 [facility] Vitamin D 25 Hydroxy Totalon 10-27-2022 Vitamin D 25 Hydroxy Total 22.1 ng/mL Low 30-100 [facility] Comment on above: Order Comment: PT IS FASTING Result Comment: HARVINDER MIN D STATUS 25([place])VITAMIN D RANGE (ng/mL) Deficient <20 Insufficient 20 to <30 Sufficient 30 to 100 Reference: Lino Pena, Gildardo MARTELL, et al. Evaluation,treatment, and prevention of vitamin D deficiency; an Endocrine Society clinical practice guideline. JCEM. 2010; 96(7):191-. PERFORMED BY: [facility] [address] [place] [address] PATHOLOGIST DAYTIME BABYSITTER JERRY CASTRO M.D. Performed By: #### H CGQNT #### [address] Vitamin D+Metabolites [Mass/ volume] in Serum or PlasmaOrdered By: Page Magaña on 10-27-2022 Vitamin D+Metabolites [Mass/Vol] 22.1 ng/mL 30-100 [facility] Comment on above: VITAMIN D STATUS 25( [place])VITAMIN D RANGE (ng/mL) Deficient <20 Insufficient 20 to <30Sufficient 30 to 100Reference: Lino Pena, Gildardo MARTELL, et al. Evaluation,treatment, and prevention of vitamin D deficiency; an Endocrine Society clinical practice guideline. JCEM. 2010; 96(7):191-. WBC Auto (Bld) [#/Vol]Ordere d By: Page Magaña on 10-27-2022 WBC (Bld) [#/Vol] 9.1 10*3/uL 3.8-11.6 [facility] Vital Signs Date Time Vital Sign Value Performing Clinician Facility 08-16-2023 13:25-0500 Body mass index (BMI) [Ratio] 33.94 kg/m2 Aquiris DO Work Phone: [facility] 08-16-2023 13:25-0500 Body weight 78.83 kg Edgar Rip DO Work Phone: [facility] 08-16-2023 13:25-0500 Diastolic blood pressure 78 mm[Hg] [employer] Work Phone: [facility] 08-16-2023 13:25-0500 Systolic blood pressure 122 mm[Hg] [employer] Work Phone: [facility] 06-28-2023 05:30-0500 Body temperature 98.8 [degF] DO Sallie Magaña Work Phone: [facility] 06-28-2023 05:30-0500 Diastolic blood pressure 79 mm[Hg] DO Sallie Magaña Work Phone: 6([phone])158-733[address] [place] [address] 06-28-2023 05:30-0500 Heart rate 80 /min DO Sallie Magaña Work Phone: [phone](013)060-163501 [place] [address] 06-28-2023 05:30-0500 Respiratory rate 20 /min DO Sallie Magaña Work Phone: 7(412)921-185101 [place] [address] 06-28-2023 05:30-0500 SaO2% (BldA) [Mass fraction] 98 % DO Sallie Magaña Work Phone: 3(432)582-105601 [place] [address] 06-28-2023 05:30-0500 Systolic blood pressure 121 mm[Hg] DO Sallie Magaña Work Phone: 3(491)548-425201 [place] [address] 06-26-2023 20:49-0500 Body height 152.4 cm DO Sallie Magaña Work Phone: 4(806)726-514501 [place] [address] 06-26-2023 20:49-0500 Body weight 74.38 kg DO Sallie Magaña Work Phone: 7(464)285-479401 [place] [address] 01-24-2023 13:44-0400 Diastolic blood pressure 73 mm[Hg] DO Sallie Magaña Work Phone: [facility] 01-24-2023 13:44-0400 Heart rate 104 /min DO Sallie Magaña Work Phone: [phone] [place] [address] 01-24-2023 13:44-0400 Respiratory rate 16 /min DO Sallie Magaña Work Phone: [facility] 01-24-2023 13:44-0400 SaO2% (BldA) [Mass fraction] 98 % DO Sallie Magaña Work Phone: [facility] 01-24-2023 13:44-0400 Systolic blood pressure 117 mm[Hg] DO Sallie Magaña Work Phone: [facility] 01-24-2023 10:11-0400 Body height 152.4 cm DO Sallie Magaña Work Phone: [facility] 01-24-2023 10:11-0400 Body temperature 98.5 [degF] DO Sallie Magaña Work Phone: [facility] 01-24-2023 10:11-0400 Body weight 67.58 kg DO Sallie Magaña Work Phone: [facility] 11-08-2022 15:30-0400 Body height 147.96 cm Hilario Reynolds Other [employer] Other 11-08-2022 15:30-0400 Body mass index (BMI) [Ratio] 34.23 kg/m2 Hilario Reynolds Other [employer] Other 11-08-2022 15:30-0400 Body weight 74.93 kg Hilario Reynolds Other [employer] Other 11-08-2022 15:30-0400 Diastolic blood pressure 90 mm[Hg] Hilario Reynolds Other [employer] Other 11-08-2022 15:30-0400 Respiratory rate 18 /min Hilario Reynolds Other [employer] Other 11-08-2022 15:30-0400 SaO2% (BldA) [Mass fraction] 97 % Hilario Reynolds Other [employer] Other 11-08-2022 15:30-0400 Systolic blood pressure 135 mm[Hg] Hilario Gail Other [facility] Other Encounters Encounter Date Encounter Type Care Provider Facility Start: 08-16-2023 End: 08-16-2023 ambulatory EDGAR RIP Not Available Start: 08-16-2023 End: 08-16-2023 flow sheet Edgar Rip DO Work Phone: [facility] Comment on above: Third trimester preg alex; Hematuria, unspecified type Start: 08-15-2023 End: 08-15-2023 ambulatory Edgar Rip Facility:[facility] Start: 08-15-2023 End: 08-15-2023 ambulatory DO Sallie Magaña Work Phone: [facility] Work Phone: Start: 08-15-2023 End: 08-15-2023 Patient encounter procedure DO Sallie Magaña Work Phone: [facility] [place] Work Phone: Start: 08-04-2023 Telephone encounter Camila Gallego MD Work Phone: [facility] at [facility] Start: 08-03-2023 End: 08-03-2023 ambulatory [facility] Start: 08-01-2023 End: 08-01-2023 ambulatory EDGAR RIP Not Available Start: 07-19-2023 End: 07-19-2023 ambulatory EDGAR RIP Not Available Start: 07-04-2023 End: 07-04-2023 ambulatory EDGAR RIP Not Available Start: 06-29-2023 ambulatory Alfredo LANDIN Facility:[facility] Start: 06-27-2023 End: 06-28-2023 ambulatory Alfredo LANDIN Facility:[id number] Start: 06-26-2023 End: 06-28-2023 ambulatory Emerald Martinez Facility:[facility] Start: 06-26-2023 End: 06-28-2023 Evaluation and management of inpatient DO Sallie Magaña Work Phone: [facility] Work Phone: Start: 06-26-2023 End: 06-28-2023 observation encounter DO Sallie Magaña Work Phone: [facility] Work Phone: Start: 06-06-2023 End: 06-06-2023 ambulatory Latrice Sepulveda Facility:[facility] Start: 06-06-2023 End: 06-06-2023 Patient encounter procedure DO Sallie Magaña Work Phone: [facility] [place] Work Phone: Start: 05-29-2023 End: 05-29-2023 ambulatory BRANDON CAMARGO Not Available Start: 05-06-2023 End: 05-06-2023 ambulatory PagePrabha Aguila Magaña Facility:[facility] Start: 05-06-2023 End: 05-06-2023 ambulatory DO Sallie Magaña Work Phone: [facility] Work Phone: Start: 05-06-2023 End: 05-06-2023 Patient encounter procedure DO Sallie Magaña Work Phone: [facility] [place] Work Phone: Start: 01-24-2023 End: 01-24-2023 Emergency department patient visit DO Sallie Magaña Work Phone: [facility] Work Phone: Start: 12-20-2022 End: 12-21-2022 ambulatory PagePrabha Magaña Facility:[facility] Start: 12-20-2022 Registered Recurring DO Sallie Helms slava Gracielamelany Work Phone: [facility] Work Phone: Start: 11-08-2022 End: 11-08-2022 ambulatory Hilario Reynolds Other [employer] Other Start: 11-08-2022 Nutrition therapy Hilario Reynolds [facility] Start: 10-27-2022 End: 10-27-2022 ambulatory Sallie Magaña Facility:[facility] Start: 10-27-2022 End: 10-27-2022 ambulatory DO Sallie Magaña Work Phone: [facility] Work Phone: Start: 10-27-2022 End: 10-27-2022 Patient encounter procedure DO Sallie Magaña Work Phone: [facility] [place] Work Phone: Procedures Date Procedure Procedure Detail [...] 04-18-2028 Screening for malignant neoplasm of cervix [facility] Start: 03-10-2026 Screening for malignant neoplasm of cervix Pap Smear [facility] Start: 06-06-2024 Tobacco Screening Tobacco Screening [facility] Start: 06-05-2024 Adult BMI Screening Adult BMI Screening [facility] Start: 01-02-2024 ambulatory Ambulatory Facility:[facility] Start: 09-20-2023 End: 09-20-2023 Patient encounter procedure 09/20/2023 1:10 PM EDT Routine [facility] [address] [place] [id number] Edgar Erwin, DO [address] [place] [address] [facility] Start: 09-13-2023 End: 09-13-2023 Patient encounter procedure 09/13/2023 1:10 PM EST Routine [facility] [address] [facility] [address] Edgar Erwin, DO [address] [place] [address] [place] [address] [facility] Start: 09-11-2023 End: 09-11-2023 Professional / ancillary services management 09/11/2023 8:30 AM EST Ancillary Procedure [facility] [address] [facility] [address] [facility] Start: 09-05-2023 End: 09-05-2023 Patient encounter procedure 09/05/2023 1:20 PM EST Routine [facility] [address] [facility] [address] [address] Edgar Erwin, DO [address] [facility] [place] [address] [facility] Start: 08-30-2023 End: 08-30-2023 Patient encounter procedure 08/30/2023 1:10 PM EST Routine [facility] [address] [facility] [address] [address] Edgar Erwin, DO [address] [place] [address] [facility] Start: 08-15-2023 Bacteria identified in Urine by Culture [facility] Start: 06-28-2023 [facility] Start: 06-26-2023 Referral to urologist [facility] Start: 06-26-2023 Hospital admission [facility] Start: 03-10-2023 Influenza vaccination [facility] Start: 01-24-2023 Diagnostic ultrasound of gravid uterus [facility] Start: 01-24-2023 Ultrasonography of bilateral kidneys US renal BI [facility] Start: 07-18-2023 US Kidney - bilateral [facility] Start: 01-24-2023 Transvaginal obstetric ultrasonography [facility] Start: 2011 Screening for malignant neoplasm of cervix Pap Smear [facility] Start: 2009 DTaP,Tdap and Td Vaccines (1 - Tdap) DTaP,Tdap and Td Vaccines (1 - Tdap) [facility] Start: 2008 Adult BMI Follow Up Plan Adult BMI Follow Up Plan [facility] Start: 2002 Depression Screening Depression Screening [facility] Cefuroxime free [Mass/volume] in Serum or Plasma [facility] Patient Education [facility] Work Phone: Patient referral [facility] Work Phone: Rheumatoid factor [Units/volume] in Serum or Plasma [facility] Immunizations Immunization Date Immunization Notes Care Provider [facility] 05-06-2020 influenza virus vaccine, unspecified formulation Camila Gallego MD Work Phone: [facility] Payers Date Payer Category Payer Self-pay [id number] 2016 Unknown [id number] 2016 Unknown [id number] 1990 Unknown [id number] 2.16.840.1.523514.3.579.2. 727 1990 Unknown [id number] 2.16.840.1.198903.3.579.2. 1286 1990 Unknown [id number] 2.16.840.1.858354.3.579.2. 1259 1990 Unknown [id number] 2.16.840.1.033375.3.579.2. 1259 1990 Unknown [id number] 2.16.840.1.295678.3.579.2. 1259 1990 Unknown [id number] 2.16.840.1.187104.3.579.2. 1259 1990 Unknown [id number] 2.16.840.1.787181.3.579.2. 1259 Medicaid [place] [employer] [id number] Private Health Insurance [facility] [id number] Unknown [id number] 2.16.840.1.254710.19 Unknown [id number] 2.16.840.1.472089.3.579.2. 531 Unknown [id number] 2.16.840.1.401314.3.579.2. 531 Unknown [id number] 2.16.840.1.576110.3.579.2. 531 Unknown [id number] 2.16.840.1.452455.3.579.2. 531 Unknown [id number] 2.16.840.1.846019.3.579.2. 531 Unknown [id number] 2.16.840.1.592182.3.579.2. 531 Unknown [id number] 2.16.840.1.068316.3.579.2. 531 Worker's Compensation [facility] [id number] Social History Date Type Detail Facility Start: 05-01-2020 End: 03-20-2023 Tobacco smoking status NHIS Never smoked tobacco (finding) [facility] Start: 1990 Sex Assigned At Female [facility] Start: 04-03-2023 End: 06-06-2023 Sex Assigned At [facility] Other Start: 06-06-2023 Alcohol intake Ex-drinker (finding) [facility] Start: 04-03-2023 End: 06-06-2023 History of Social function [facility] Childcare Unknown [facility] Start: 01-08-2023 [facility] Start: 1990 Sex Assigned At Not on file [facility] Start: 08-16-2023 Alcohol intake Lifetime non-d aurelia (finding) [facility] Start: 03-20-2023 Alcohol Comment caffeine: coffee [facility] NEGATED: Highlighted rowStart: NINF History of tobacco use Passive smoker [facility] Goals Date Patient Goal Desired Activity [...] Diagnosis Date Acute bacterial pharyngitis Allergies Asthma ([facility]) Gallbladder disease Kidney stones Family History Problem [...] nursing note reviewed. Exam conducted with a tool die maker present. Vitals: Estimated body mass index is [...] Edgar Erwin DO documented in this encounter [facility] 08-04-2023 Miscellaneous Notes Called in left voice message in regards to question about placenta accreta. Sonographic assessment was not consistent with abnormal placentation. No signs of placenta accreta by ultrasound. If you have any further questions please do not hesitate to contact our office. CAMILA GALLEGO MD documented in this encounter [facility] 08-04-2023 Telephone encounter Note Called in left voice message in regards to question about placenta accreta. Sonographic assessment was not consistent with abnormal placentation. No signs of placenta accreta by ultrasound. If you have any further questions please do not hesitate to contact our office. CAMILA GALLEGO MD [facility] Work Phone: 06-27-2023 Consult note Note Date/Time June 27, 2023 2:48pm [facility] [address] [place] [address] Urology Consult Note Signed Patient: Elyssa Smith MR#: [id number] : 1990 Acct:[id number] Age/Sex: 33 / F Adm Date: 3 Loc: Room: [address] [place] [address] Type: ADM INOo Attending Dr: Emerald Martinez [...] P documented by Dr. Martinez earlier today [facility] Medical History (Updated 06/27/23 @ 07:15 by [...] % (Auto) 87.1, Lymph % (Auto) 8.3, [place] % (Auto) 4.2, Eos % (Auto)0.2, Baso % (Auto) 0.2, Nucleat RBC Rel Count 0.1, Neut # (Auto) 11.9 H, Lymph #(Auto) 1.1, [place] # (Auto) 0.6, Eos # (Auto) 0.0, Baso # (Auto) 0.0 06/26/23 20:07: Fibronectin Negative 06/26/23 19:20: Urine Opiates Screen Negative, Ur Barbiturates Screen Negative, Ur Phencyclidine Scrn Negative, Ur Amphetamines Screen Negative, U Benzodiazepines Scrn Negative, Urine Cocaine Screen Negative 06/26/23 19:20: Urine Color Yellow, Urine Appearance Clear, Urine pH 6.5, Ur Specific [place] 1.009, Urine Protein Trace H, Urine Glucose [...] <Electronically signed by MD Alfredo Landin> 06/27/23 1458 [facility] Work Phone: 1(117) 310-871112-19-2023 History and physical note Author Emerald Martinez [facility] June 27, 2023 7:16am Note Date/Time June 27, 2023 7:10am [facility] [address] [place] [address] [employer] History & Physical Signed Patient: Elyssa mSith MR#: [id number] : 1990 Acct:[id number] Age/Sex: 33 / F Adm Date: 3 Loc: 3E Room: [address] [place] [address] Type: REG CLI Attending Dr: Emerald Martinez [...] pain is controlledwith IV pain meds. OB [facility] Medical History (Updated 06/27/23 @ 07:15 by [...] 50 mls @ 100 mls/hr IV Q8H [facility] Last Admin: 06/27/23 05:16 Dose: 100 mls/hr [...] % (Auto) 87.1, Lymph % (Auto) 8.3, [place] % (Auto) 4.2, Eos % (Auto)0.2, Baso % (Auto) 0.2, Nucleat RBC Rel Count 0.1, Neut # (Auto) 11.9 H, Lymph #(Auto) 1.1, [place] # (Auto) 0.6, Eos # (Auto) 0.0, Baso # (Auto) 0.0 06/26/23 20:07: Fibronectin Negative 06/26/23 19:20: Urine Opiates Screen Negative, Ur Barbiturates Screen Negative, Ur Phencyclidine Scrn Negative, Ur Amphetamines Screen Negative, U Benzodiazepines Scrn Negative, Urine Cocaine Screen Negative 06/26/23 19:20: Urine Color Yellow, Urine Appearance Clear, Urine pH 6.5, Ur Specific [place] 1.009, Urine Protein Trace H, Urine Glucose [...] currently. She does see Dr. Erwin in [place] for her care (2) Right kidney stone: Plan: Urology has been consulted- awaiting recommendations (3) Hydronephrosis, right: Plan: Urology has been consulted-awaiting recommendations Documented By: Emerald Martinez DO 06/27/23 07 06 Signed By: <Electronically signed by Emerald Martinez DO> 06/27/23 0716 [facility] Work Phone: 1(229) 110-825405-02-2023 Evaluation note* Encounter Date Diagnosis Assessment Notes Treatment Notes Treatment Clinical Notes November, Abnormal weight gain (ICD-10 - R63.5) November, Mixed hyperlipidemia (ICD-10 - E78.2) November, Anxiety (ICD-10 - F41.9) November, Asthma (ICD-10 - J45.909) November, Kidney stones (ICD-1 0 - N20.0) [employer] Other Evaluation noteNo assessment information available [facility] Work Phone: Evaluation note* Diagnosis Onset Date Resolution Status 26 weeks gestation of acute Hydronephrosis, right acute Right kidney stone acute [facility] Work Phone: Evaluation note* Diagnosis Onset Date Resolution Status 26 weeks gestation of acute Hydronephrosis, right acute Right kidney stone resolved [facility] Work Phone: Evaluation note* Diagnosis Third trimester state, incidental Hematuria, unspecified type documented in this encounter [facility] - Reported* Type Description Date Medical History asthma Surgical History C section x 2 Surgical History kidney stones Surgical History IUD removed Hospitalization History see surgical hx [employer] Other Hospital Discharge instructions Additional Instructions Follow-up with your primary care doctor and [facility] Return to ED if you develop worsening [facility] Work Phone: Hospital Discharge instructions Additional Instructions Follow up with Dr. Villatoro [facility] Work Phone: InstructionsNot on filedocumented in this encounter [facility] Author KIKI BEAL [facility] June 28, 2023 8:04am Note Date/Time June 28, 2023 7:43am [facility] [address] [place] [address] [employer] Progress Note Signed Patient: Elyssa Smith MR#: [id number] : 1990 Acct:[id number] Age/Sex: 33 / F Adm Date: 3 Loc: Room: [address] [place] [address] Type: ADM INOo Attending Dr: Emerald Martinez [...] Documented By: Virgen Hughes MD, RES 06/28/23 8533 Signed By: <Electronically signed by RES Virgen Hughes> 06/28/23 0751 <Electronically signed by MD KIKI BEAL> 06/28/23 0804 [facility] Work Phone: Chief Complaint and [...] Arcelia meyers 2023 End: August 15, 2023 Rn Oncology Clinical Relationship Specialty Start Date End Date Jonah Magaña DO [address] [place] [address] PCP - Medical [place] [employer] 12/08/22 Jonah Magaña DO [address] [place] [address] PCP - General Family Medicine 11/15/22 Goals [...] section and content) DATE CREATED AUTHOR 07/15/2023 [facility] DATE CREATED AUTHOR AUTHOR'S ORGANIZ ATION 08/06/2023 [facility] DATE CREATED AUTHOR AUTHOR'S ORGANIZ ATION 08/17/2023 [facility] EPIC DATE CREATED AUTHOR AUTHOR'S ORGANIZ ATION 08/18/2023 [facility] FOR RECORDS PERTAINING TO PATIENTS WHO [...] BE BASED ON THE PRIMARY CLINICAL RECORDS. [facility] provides no warranty or guarantee of the accuracy or completeness of information in this document.
[2023-09-05] MEDS: BETAMETHASONE ACE/BETAMETHASONE SOD PHOS 30 MG/5 ML 12 MG IM (21:44)
== END 2023-09-05 21:51 | disposition home or self-care (01) ==
LOC: FBCO 21:30 → FBC 21:37
PROVIDERS: Visit Provider Obstetrics & Gynecology
DX: O09.213 Supervision of pregnancy with history of pre-term labor, third trimester (principal); O26.843 Uterine size-date discrepancy, third trimester; Z3A.00 Weeks of gestation of pregnancy not specified
CPT/HCPCS: J0702

== ENCOUNTER 2023-09-07 19:13 | Outpatient (REF) | payer OTHER, SELFPAY | END 2023-09-07 19:14 | disposition home or self-care (01) | LOC: LAB 19:13 | PROVIDERS: Visit Provider Obstetrics & Gynecology | DX: Z34.93 Encounter for supervision of normal pregnancy, unspecified, third trimester (principal) | CPT/HCPCS: 87081; 87150; 87186 ==

== ENCOUNTER 2023-09-11 08:24 | Outpatient (OUT) | payer OTHER, SELFPAY ==
--- NOTE | 2023-09-11 08:28 | US_ITS ---
[address] [address] Patient Name: CARMEN DE LA CRUZ MRN: [id number] date: 1990 Sex: F Assigned Patient Location: [facility] Current Patient Location: [facility] Accession/Order Number: [id number] Exam Date: 09/11/2023 08:28 Report Date: 09/11/2023 08:57 At the request of: EDGAR FERRELL Procedure: US OB growth EXAMINATION: US OB growth HISTORY: HISTORY OF PRE TERM LABOR COMPARISON: No relevant comparison available. FINDINGS: 09/04/2023, 08/14/2023 Heart Rate: 167.0 bpm Amniotic Fluid Volume: 18.9 cm Number: 1.0 Position: Cephalic presentation, longitudinal lie Maximum Vertical Pocket: 4.0 cm cm 4.8 cm cm 5.4 cm cm 4.7 cm cm BIOMETRY: BPD: 8.3 cm cm; 33 weeks 2 days; <3% HC: 31.2 cmcm; 34 weeks 6 days , <3% AC: 34.4 cm cm; 38 weeks 2 days, 89% FL: 7.0 cm cm; 36 weeks 1 days; 23.2 % % EFW: 3022.3 grams, 6 lbs. 11 oz., 46% FL/AC: 20.5 FL/BPD: 85.1 HC/AC: 0.9 GESTATIONAL AGE: Age by EDC: 37 weeks 1 days PHILIP by EDC: 10/01/2023 Age by US: 35 weeks 5 days PHILIP by US: 10/11/2023 US/US OB growth IMPRESSION: BPD and head circumference less than the 3rd percentile, stable Otherwise normal interval growth Electronically authenticated by: MARTY KO Date: 09/11/2023 08:57
--- OUTSIDE RECORDS SUMMARY | 2023-09-11 08:28 | XMS_ITS | CCD ---
Author Name Unknown Address [address] [place] [address] Organization [facility] Care Team Providers Care Hot Car Operator Name Role Phone DO Sallie Magaña [...] Primary Care Provider Edgar Erwin Attending Provider Latrice Sepulveda Admitting Unavailable Latrice Sepulveda Attending [...] Sallie Magaña Primary Care Unavailable Sarmad Lu[place] Admitting Unavailable Sarmad [place] Attending Unavailable Sallie Magaña Primary Care Unavailable Sallie Magaña Attending Unavailable Sallie Magaña Admitting Unavailable Jonah Magaña DO Unavailable Jonah Magaña DO Primary Care Provider EDGAR ERWIN Attending Unavailable RIPEDGAR GUSTAFSON Attending Unavailable RIP, EDGAR Attending Unavailable BRANDON CAMARGO Attending Unavailable RIP, EDGAR Attending Unavailable RIP, EDGAR Attending Unavailable RIPSHAGUFTA GUSTAFSONY Attending Unavailable Allergies Allergy Classification Reported Allergen(s) Allergy Type Date of Onset Reaction(s) Facility (12 sources) Dicyclomine; Translations: [dicyclomine] Drug Allergy 6 Other (See Comments), Hives, Other, Unknown [facility] (9 sources) Fish Oils; Translations: [fish oil] Drug Allergy 0 Hives, [facility] (7 sources) Gluten; Translations: [gluten] Propensity to adverse reactions 0 Nausea [facility] (1 source) DHA Propensity to adverse reactions Unknown [facility] Other (2 sources) Pnv [id number]-Fvqrv -3-Fish Oil; Translations: [PNV 404-[id number] -3-FISH OIL] Propensity to adverse reactions to drug 6 [facility] (2 sources) Pollen Allergy to substance 3 Unknown [facility] (2 sources) Other Propensity to adverse reactions 6 [facility] Medications Current Medications Medication Drug [...] UA Negative Negative - 4(70) +++ mg/dL [facility] Blood, UA Positive Negative - 50 Johnny/mcL [facility] Clarity, UA Cloudy [facility] Color, UA Yellow [facility] Glucose, UA Negative Negative - 1999(110) ++++ mg/dL [facility] Interpretation and review of laboratory results Abnormal [facility] Ketones, UA Negative Negative - 160(16) ++++ mg/dL [facility] Leukocytes, UA Negative Negative - 500+++ Mireya/mcL [facility] Nitrite, UA Negative Negative - Positive [facility] pH, UA 7.0 5 - 9 [facility] Protein, UA Negative Negative - 1999(20) ++++ mg/dL [facility] Spec Grav, UA 1.020 1 - 1.03 [facility] Urobilinogen, UA 0.2 0.2 - 12 mg/dL [facility] Urine Cultureon 08-15-2023 Bacteria identified Cx Nom (U) ORGANISM: Chelsi albicans (O:CANALB) [place] Count 30,000 PERFORMED BY: [place] [address] PATHOLOGIST MENTAL HEALTH PROGRAM DIRECTOR JERRY CASTRO M.D. [facility] Comment on above: Performed By: #### U HCG, ADDONUAPLUS #### [address] Lab Reportson 07-14-2023 Lab Reports [id number]#1 .00TIFF Normal [facility] Insurance Correspondence Off iceon 06-30-2023 Insurance Correspondence Office [id number]# 1.00TIFF Normal [facility] Lab Reportson 06-30-2023 Lab Reports [id number]# 1.00TIFF Normal [facility] RAD - Ultrasound Reporton RAD - Ultrasound Report [id number]#1 .00TIFF Normal [facility] Lab Reportson 06-29-2023 Lab Reports [id number]#1 .00TIFF Normal [facility] Consultation Noteon 06-28-20 Consultation Note [id number]#1 .00TIFF Normal [facility] Complete Blood Count Auto Di ffon 06-27-2023 Basophils (Bld) [#/Vol] 0.0 10*3/uL Normal 0.0-0.2 [facility] Comment on above: Result Comment: PERF ORMED BY: [place] [address] PATHOLOGIST MENTAL HEALTH PROGRAM DIRECTOR JERRY CASTRO M.D. Performed By: #### U HCG, ADDONUAPLUS #### [facility] [address] [place] [address] [place] Basophils/100 WBC (Bld) 0.2 % Normal . [facility] Comment on above: Performed By: #### U HCG, ADDONUAPLUS #### [facility] [address] [place] [address] [place] Eosinophils (Bld) [#/Vol] 0.0 10*3/uL Normal 0.0-0.45 [facility] Comment on above: Performed By: #### U HCG, ADDONUAPLUS #### [facility] [address] [place] [address] [place] Eosinophils/100 WBC (Bld) 0.2 % Normal . [facility] Comment on above: Performed By: #### U HCG, ADDONUAPLUS #### [facility] [address] [place] [address] Erythrocyte distribution width (RBC) [Ratio] 13.4 % Normal 11.9-15.3 [facility] Comment on above: Performed By: #### U HCG, ADDONUAPLUS #### [facility] [address] Hematocrit (Bld) [Volume fraction] 33.5 % Low 34.0-46.4 [facility] Comment on above: Performed By: #### U HCG, ADDONUAPLUS #### [facility] [address] Hemoglobin (Bld) [Mass/Vol] 11.3 g/dL Low 11.8-15.4 [facility] Comment on above: Performed By: #### U HCG, ADDONUAPLUS #### [address] Lymphocytes (Bld) [#/Vol] 1.1 10*3/uL Normal 1.00-4.8 [facility] Comment on above: Performed By: #### U HCG, ADDONUAPLUS #### [address] Lymphocytes/100 WBC (Bld) 8.3 % Normal . [facility] Comment on above: Performed By: #### U HCG, ADDONUAPLUS #### [address] MCH (RBC) [Entitic mass] 29.0 pg Normal 24.7-34.3 [facility] Comment on above: Performed By: #### U HCG, ADDONUAPLUS #### [address] MCV (RBC) [Entitic vol] 86.2 fL Normal 80-[address] [facility] Comment on above: Performed By: #### U HCG, ADDONUAPLUS #### [address] Mean Corpuscular HGB Conc 33.7 g/dL Normal 32.0-35.0 [facility] Comment on above: Performed By: #### U HCG, ADDONUAPLUS #### [address] Monocytes (Bld) [#/Vol] 0.6 10*3/uL Normal 0.0-0.8 [facility] Comment on above: Performed By: #### U HCG, ADDONUAPLUS #### [facility] [address] Monocytes/100 WBC (Bld) 4.2 % Normal . [facility] Comment on above: Performed By: #### U HCG, ADDONUAPLUS #### [facility] [address] [place] [address] Neutrophils (Bld) [#/Vol] 11.9 10*3/uL High 1.8-7.7 [facility] Comment on above: Performed By: #### U HCG, ADDONUAPLUS #### [facility] [address] [place] [address] Neutrophils/100 WBC (Bld) 87.1 % Normal . [facility] Comment on above: Performed By: #### U HCG, ADDONUAPLUS #### [facility] [address] [place] [address] NRBC% 0.1 /100{WBC} Normal 0-0.5 [facility] Comment on above: Performed By: #### U HCG, ADDONUAPLUS #### [address] Platelet mean volume (Bld) [Entitic vol] 9.8 fL Normal 6.3-10.7 [facility] Comment on above: Performed By: #### U HCG, ADDONUAPLUS #### [facility] [address] [place] [address] Platelets (Bld) [#/Vol] 174 10*3/uL Normal 150-450 [facility] Comment on above: Performed By: #### U HCG, ADDONUAPLUS #### [facility] [address] [place] [address] RBC (Bld) [#/Vol] 3.89 10*6/uL Normal 3.60-5.00 [facility] Comment on above: Performed By: #### U HCG, ADDONUAPLUS #### [address] [place] [address] [place] WBC (Bld) [#/Vol] 13.6 10*3/uL High 3.8-11.6 [facility] Comment on above: Performed By: #### U HCG, ADDONUAPLUS #### [facility] [address] [place] [address] Comprehensive Metabolic Pane mauricio 06-27-2023 Albumin [Mass/Vol] 3.4 g/dL Low 3.5-5.7 [facility] Comment on above: Performed By: #### U HCG, ADDONUAPLUS #### [facility] [address] [place] [address] Albumin/Globulin [Mass ratio] 1.6 {ratio} Normal [facility] Comment on above: Performed By: #### U HCG, ADDONUAPLUS #### [address] ALP [Catalytic activity/Vol] 88 U/L Normal 34-104 [facility] Comment on above: Performed By: #### U HCG, ADDONUAPLUS #### [facility] [address] [place] [address] ALT [Catalytic activity/Vol] 17 U/L Normal 7-52 [facility] Comment on above: Performed By: #### U HCG, ADDONUAPLUS #### [address] Anion gap [Moles/Vol] 12.5 mmol/L Normal 6.0-15.0 [facility] Comment on above: Performed By: #### U HCG, ADDONUAPLUS #### [facility] [address] [place] [address] AST [Catalytic activity/Vol] 14 U/L Normal 13-39 [facility] Comment on above: Performed By: #### U HCG, ADDONUAPLUS #### [facility] [address] [place] [address] Bilirubin [Mass/Vol] 0.3 mg/dL Normal 0.3-1.0 [facility] Comment on above: Performed By: #### U HCG, ADDONUAPLUS #### [facility] [address] Calcium [Mass/Vol] 8.2 mg/dL Low 8.6-10.3 [facility] Comment on above: Performed By: #### U HCG, ADDONUAPLUS #### [facility] [address] [place] [address] [place] Chloride [Moles/Vol] 105 mmol/L Normal 98-107 [facility] Comment on above: Performed By: #### U HCG, ADDONUAPLUS #### [facility] [address] CO2 [Moles/Vol] 23.8 mmol/L Normal 21.0-31.0 [facility] Comment on above: Performed By: #### U HCG, ADDONUAPLUS #### [facility] [address] Creatinine [Mass/Vol] 0.52 mg/dL Low 0.60-1.20 [facility] Comment on above: Performed By: #### U HCG, ADDONUAPLUS #### [facility] [address] [place] [address] [place] Creatinine Clr Calc Pharmacy 138.60 [facility] Comment on above: Result Comment: PERF ORMED BY: [place] [address] PATHOLOGIST MENTAL HEALTH PROGRAM DIRECTOR JERRY CASTRO M.D. Performed By: #### U HCG, ADDONUAPLUS #### [facility] [address] [place] [address] [place] GFR/1.73 sq M.predicted MDRD (S/P/Bld) [Vol rate/Area] mL/min/{1.73_m2} [facility] Comment on above: Performed By: #### U HCG, ADDONUAPLUS #### [facility] [address] [place] [address] [place] Globulin (S) [Mass/Vol] 2.1 g/dL Normal [facility] Comment on above: Performed By: #### U HCG, ADDONUAPLUS #### [facility] [address] Glucose [Mass/Vol] 124 mg/dL High 70-100 [facility] Comment on above: Result Comment: [facility][note 2] Glucose Reference Range is dependent on time and content of last meal. Glucose of more than 200 mg/dL in a nonstressed, ambulatory subject supports the diagnosis of Diabetes Mellitus. ADA recommended reference range Performed By: #### U HCG, ADDONUAPLUS #### [facility] [address] Potassium [Moles/Vol] 3.3 mmol/L Low 3.5-5.1 [facility] Comment on above: Performed By: #### U HCG, ADDONUAPLUS #### [facility] [address] [place] [address] Protein [Mass/Vol] 5.5 g/dL Low 6.4-8.9 [facility] Comment on above: Performed By: #### U HCG, ADDONUAPLUS #### [facility] [address] [place] [address] Sodium [Moles/Vol] 138 mmol/L Normal 136-145 [facility] Comment on above: Performed By: #### U HCG, ADDONUAPLUS #### [address] Urea nitrogen [Mass/Vol] 6 mg/dL Low 7-25 [facility] Comment on above: Performed By: #### U HCG, ADDONUAPLUS #### [facility] [address] [place] [address] US renal BIon 06-27-2023 US renal BI [facility] [place] [address] [place] [address] Ultrasound Report Signed Patient: Elyssa Smith MR#: [id number] : 1990 Acct:[id number] Age/Sex: 33 / F ADM Date: 06/27/23 Loc: Room: [address] [place] [address] Type: ADM INOo Attending Dr: Emerald Martinez [...] Kathleen Vaca M.D.06/27/2023 7:44 AM Dictation Location: [place] [address] Tech: Eryn Welsh Transcribed By: SILVINA 06/27/23 0744 Dictated By: Kathleen Vaca MD 06/27/23 0742 Signed By: 06/27/23 0744 Normal [facility] Alanine aminotransferase [En zymatic activity/volume] in Serum or PlasmaOrdered By: Emerald Martinez on 06-26-2023 ALT [Catalytic activity/Vol] 17 U/L 7-52 [facility] Albumin [Mass/volume] in Ser um or Plasma by Bromocresol green (BCG) dye binding methoOrdered By: Emerald Martinez on 06-26-2023 Albumin BCG dye [Mass/Vol] 3.4 g/dL 3.5-5.7 [facility] Alkaline phosphatase [Enzyma tic activity/volume] in Serum or PlasmaOrdered By: Emerald Martinez on 06-26-2023 ALP [Catalytic activity/Vol] 88 U/L 34-104 [facility] Amphetamine Screen Ql (U)Ord ered By: Emerald Martinez on 06-26-2023 Amphetamines Ql (U) Negative Negative [facility] Aspartate aminotransferase [ Enzymatic activity/volume] in Serum or PlasmaOrdered By: Emerald Martinez on 06-26-2023 AST [Catalytic activity/Vol] 14 U/L 13-39 [facility] Automated epithelial cells c ount in urine sediment (number/area)Ordered By: Emerald Martinez on 06-26-2023 Epithelial cells Auto (Urine sed) [#/Area] 10-19 [HPF] 0-2 [facility] Automated erythrocytes count in urine sediment (number/area)Ordered By: Emerald Martinez on 06-26-2023 RBC Auto (Urine sed) [#/Area] 10-19 [HPF] 0-4 [facility] Automated leukocytes count i n urine sediment (number/area)Ordered By: Emerald Martinez on 06-26-2023 WBC Auto (Urine sed) [#/Area] 0-1 [HPF] 0-4 [facility] Automated urine hyaline cast s count (number/volume)Ordered By: Emerald Martinez on 06-26-2023 Hyaline casts Auto (U) [#/Vol] None seen [LPF] 0-1 [facility] Barbiturates [Presence] in U rine by Screen methodOrdered By: Emerald Martinez on 06-26-2023 Barbiturates Screen Ql (U) Negative Negative [facility] Basophils Auto (Bld) [#/Vol] Ordered By: Emerald Martinez on 06-26-2023 Basophils (Bld) [#/Vol] 0.0 10*3/uL 0.0-0.2 [facility] Basophils/100 WBC Auto (Bld) Ordered By: Emerald Martinez on 06-26-2023 Basophils/100 WBC (Bld) 0.2 % . [facility] Benzodiazepines Screen Ql (U )Ordered By: Emerald Martinez on 06-26-2023 Benzodiazepines Ql (U) Negative Negative [facility] Benzoylecgonine [Presence] i n Urine by Screen methodOrdered By: Emerald Martinez on 06-26-2023 Benzoylecgonine Screen Ql (U) Negative Negative [facility] Bilirubin Test strip Ql (U)O rdered By: Emerald Martinez on 06-26-2023 Bilirubin Ql (U) Negative Negative [facility] Bilirubin.total [Mass/volume ] in Serum or PlasmaOrdered By: Emerald Martinez on 06-26-2023 Bilirubin [Mass/Vol] 0.3 mg/dL 0.3-1.0 [facility] Calcium [Mass/volume] in Ser um or PlasmaOrdered By: Emerald Martinez on 06-26-2023 Calcium [Mass/Vol] 8.2 mg/dL 8.6-10.3 [facility] Carbon dioxide, total [Moles /volume] in Serum or PlasmaOrdered By: Emerald Martinez on 06-26-2023 CO2 [Moles/Vol] 23.8 mmol/L 21.0-31.0 [facility] Chloride [Moles/volume] in S gris or PlasmaOrdered By: Emerald Martinez on 06-26-2023 Chloride [Moles/Vol] 105 mmol/L 98-107 [facility] Color Auto (U)Ordered By: Gracieal Martinez on 06-26-2023 Color (U) Yellow Yellow [facility] Creatinine [Mass/volume] in Serum or PlasmaOrdered By: Emerald Martinez on 06-26-2023 Creatinine [Mass/Vol] 0.52 mg/dL 0.60-1.20 [facility] Dipstick and Microscopicon 1 08-27-2022 Appearance (U) Clear Normal Clear [facility] Comment on above: Order Comment: Name Collection Type:: Clean-Voided Midstream Performed By: #### U HCG, ADDONUAPLUS #### [facility] [address] [place] [address] [place] Bacteria,Urine Rare High None Seen [facility] Comment on above: Order Comment: Name Collection Type:: Clean-Voided Midstream Performed By: #### U HCG, ADDONUAPLUS #### [facility] [address] [place] [id number] [place] Bilirubin,Urine Negative Normal Negative [facility] Comment on above: Order Comment: Name Collection Type:: Clean-Voided Midstream Performed By: #### U HCG, ADDONUAPLUS #### [facility] [address] [place] [id number] [place] Color (U) Yellow Normal Yellow [facility] Comment on above: Order Comment: Name Collection Type:: Clean-Voided Midstream Performed By: #### U HCG, ADDONUAPLUS #### [facility] [address] [place] [address] Glucose Ql (U) Normal Normal Normal [facility] Comment on above: Order Comment: Name Collection Type:: Clean-Voided Midstream Performed By: #### U HCG, ADDONUAPLUS #### [facility] [address] [place] [address] [place] Hyaline Casts,Urine None Seen Normal 0-1 [facility] Comment on above: Order Comment: Name Collection Type:: Clean-Voided Midstream Performed By: #### U HCG, ADDONUAPLUS #### [address] Ketones Ql (U) Negative Normal Negative [facility] Comment on above: Order Comment: Name Collection Type:: Clean-Voided Midstream Performed By: #### U HCG, ADDONUAPLUS #### [facility] [address] [place] [address] Leukocyte esterase Test strip Ql (U) Negative Normal Negative [facility] Comment on above: Order Comment: Name Collection Type:: Clean-Voided Midstream Performed By: #### U HCG, ADDONUAPLUS #### [facility] [address] [place] [address] [place] Nitrite,Urine Negative Normal Negative [facility] Comment on above: Order Comment: Name Collection Type:: Clean-Voided Midstream Performed By: #### U HCG, ADDONUAPLUS #### [facility] [address] [place] [address] [place] Occult Blood,Urine 3+ High Negative [facility] Comment on above: Order Comment: Name Collection Type:: Clean-Voided Midstream Result Comment: PERF ORMED BY: [place] [address] PATHOLOGIST MENTAL HEALTH PROGRAM DIRECTOR JERRY CASTRO M.D. Performed By: #### U HCG, ADDONUAPLUS #### [facility] [address] [place] [address] [place] pH (U) 6.5 [pH] Normal 5.0-9.0 [facility] Comment on above: Order Comment: Name Collection Type:: Clean-Voided Midstream Performed By: #### U HCG, ADDONUAPLUS #### [address] Protein,Urine Trace High Negative [facility] Comment on above: Order Comment: Name Collection Type:: Clean-Voided Midstream Performed By: #### U HCG, ADDONUAPLUS #### [address] RBC,Urine 10-19 High 0-4 [facility] Comment on above: Order Comment: Name Collection Type:: Clean-Voided Midstream Performed By: #### U HCG, ADDONUAPLUS #### [address] Specificy Medicine [place],Urine 1.009 Normal 1.001-1.030 [facility] Comment on above: Order Comment: Name Collection Type:: Clean-Voided Midstream Performed By: #### U HCG, ADDONUAPLUS #### [address] Squamous Epithelial Cell,Urine 10-19 High 0-2 [facility] Comment on above: Order Comment: Name Collection Type:: Clean-Voided Midstream Performed By: #### U HCG, ADDONUAPLUS #### [address] Urobilinogen,Urine Normal Normal Normal [facility] Comment on above: Order Comment: Name Collection Type:: Clean-Voided Midstream Performed By: #### U HCG, ADDONUAPLUS #### [address] WBC LM.HPF (Urine sed) [#/Area] 0 /[HPF] Normal 0-4 [facility] Comment on above: Order Comment: Name Collection Type:: Clean-Voided Midstream Performed By: #### U HCG, ADDONUAPLUS #### [address] Yeast,Urine Rare Critically abnormal None Seen [facility] Comment on above: Order Comment: Name Collection Type:: Clean-Voided Midstream Result Comment: PERF ORMED BY: [place] [address] PATHOLOGIST MENTAL HEALTH PROGRAM DIRECTOR JERRY CASTRO M.D. Performed By: #### U HCG, ADDONUAPLUS #### [facility] [address] [place] [address] Eosinophils Auto (Bld) [#/Vo l]Ordered By: Emerald Martinez on 06-26-2023 Eosinophils (Bld) [#/Vol] 0.0 10*3/uL 0.0-0.45 [facility] Eosinophils/100 WBC Auto (Bl d)Ordered By: Emerald Martinze on 06-26-2023 Eosinophils/100 WBC (Bld) 0.2 % . [facility] Erythrocyte distribution wid th Auto (RBC) [Ratio]Ordered By: Emerald Martinez on 06-26-2023 Erythrocyte distribution width (RBC) [Ratio] 13.4 % 11.9-15.3 [facility] Fibronectinon 06-26-20 Fibronectin Negative Normal Negative [facility] Comment on above: Order Comment: Name Collection Type:: Clean-Voided Midstream Result Comment: PERF ORMED BY: [place] [address] PATHOLOGIST MENTAL HEALTH PROGRAM DIRECTOR JERRY CASTRO M.D. Performed By: #### U HCG, ADDONUAPLUS #### [facility] [address] [place] [address] fibronectinOrdered By: Emerald Martinez on 06-26-2023 Fibronectin. (Vag fld) [Mass/Vol] Negative Negative [facility] Globulin Calc (S) [Mass/Vol] Ordered By: Emerald Martinez on 06-26-2023 Globulin (S) [Mass/Vol] 2.1 g/dL [facility] Glucose [Mass/volume] in Ser um or PlasmaOrdered By: Emerald Martinez on 06-26-2023 Glucose [Mass/Vol] 124 mg/dL 70-100 [facility] Comment on above: ADA recommended refe rence rangeRandom Glucose Reference Range is dependent on time and content of last meal. Glucose of more than 200 mg/dL in a nonstressed, ambulatory subject supports the diagnosis of Diabetes Mellitus. Hematocrit Auto (Bld) [Volum e fraction]Ordered By: Emerald Martinez on 06-26-2023 Hematocrit (Bld) [Volume fraction] 33.5 % 34.0-46.4 [facility] Hemoglobin [Mass/volume] in BloodOrdered By: Emerald Martinez on 06-26-2023 Hemoglobin (Bld) [Mass/Vol] 11.3 g/dL 11.8-15.4 [facility] Ketones Auto test strip (U) [Mass/Vol]Ordered By: Emerald Martinez on 06-26-2023 Ketones (U) [Mass/Vol] Negative Negative [facility] Leukocytes [#/volume] correc mague for nucleated erythrocytes in Blood by Automated counOrdered By: Eemrald Martinez on 06-26-2023 WBC corrected for nucl RBC Auto (Bld) [#/Vol] 13.6 10*3/uL 3.8-11.6 [facility] Lymphocytes Auto (Bld) [#/Vo l]Ordered By: Emerald Martinez on 06-26-2023 Lymphocytes (Bld) [#/Vol] 1.1 10*3/uL 1.00-4.8 [facility] Lymphocytes/100 WBC Auto (Bl d)Ordered By: Emerald Martinez on 06-26-2023 Lymphocytes/100 WBC (Bld) 8.3 % . [facility] MCH Auto (RBC) [Entitic mass ]Ordered By: Emerald Martinez on 06-26-2023 MCH (RBC) [Entitic mass] 29.0 pg 24.7-34.3 [facility] MCHC Auto (RBC) [Mass/Vol]Or dered By: Emerald Martinez on 06-26-2023 MCHC (RBC) [Mass/Vol] 33.7 g/dL 32.0-35.0 [facility] MCV Auto (RBC) [Entitic vol] Ordered By: Emerald Martinez on 06-26-2023 MCV (RBC) [Entitic vol] 86.2 fL 80-[address] [facility] Monocytes Auto (Bld) [#/Vol] Ordered By: Emerald Martinez on 06-26-2023 Monocytes (Bld) [#/Vol] 0.6 10*3/uL 0.0-0.8 [facility] Monocytes/100 WBC Auto (Bld) Ordered By: Emerald Martinez on 06-26-2023 Monocytes/100 WBC (Bld) 4.2 % . [facility] Neutrophils Auto (Bld) [#/Vo l]Ordered By: Emerald Martinez on 06-26-2023 Neutrophils (Bld) [#/Vol] 11.9 10*3/uL 1.8-7.7 [facility] Neutrophils/100 WBC Auto (Bl d)Ordered By: Emerald Martinez on 06-26-2023 Neutrophils/100 WBC (Bld) 87.1 % . [facility] Nitrite Test strip Ql (U)Ord ered By: Emerald Martinez on 06-26-2023 Nitrite Ql (U) Negative Negative [facility] No Panel InformationOrdered By: Emerald Martinez on 06-26-2023 Estimated GFR (CKD-EPI) > 60.0 mL/Min [facility] Creatinine Clearance (Chem 138.60 [facility] Nucleated erythrocytes [Pres ence] in Blood by Automated countOrdered By: Emerald Martinez on 06-26-2023 Nucleated RBC Auto Ql (Bld) 0.1 /100{WBC} 0-0.5 [facility] OB Urine Drug Screen (NO THC )on 06-26-2023 Amphetamine Screen,Urine Negative Normal Negative [facility] Comment on above: Performed By: #### U HCG, ADDONUAPLUS #### [facility] [address] Barbiturate Screen,Urine Negative Normal Negative [facility] Comment on above: Performed By: #### U HCG, ADDONUAPLUS #### [facility] [address] Benzodiazepines Screen,Urine Negative Normal Negative [facility] Comment on above: Performed By: #### U HCG, ADDONUAPLUS #### [facility] [address] [place] [address] Cocaine Screen,Urine Negative Normal Negative [facility] Comment on above: Performed By: #### U HCG, ADDONUAPLUS #### [facility] [address] Opiate Screen,Urine Negative Normal Negative [facility] Comment on above: Performed By: #### U HCG, ADDONUAPLUS #### [facility] [address] [place] [address] Phencyclidine Screen, Urine Negative Normal Negative [facility] Comment on above: Result Comment: Thes e are unconfirmed results and should not be used for legal purposes. Drug Cut-Off Concentration: AMPH 1000 ng/mL DORIS 200 ng/mL LEANNE 200 ng/mL COCM 300 ng/mL OP 300 ng/mL PCP 25 ng/mL PERFORMED BY: [place] [address] PATHOLOGIST MENTAL HEALTH PROGRAM DIRECTOR JERRY CASTRO M.D. Performed By: #### U HCG, ADDONUAPLUS #### [address] Opiates [Presence] in Urine by Screen methodOrdered By: Emerald Martinez on 06-26-2023 Opiates Screen Ql (U) Negative Negative [facility] Phencyclidine Screen Ql (U)O rdered By: Emerald Martinez on 06-26-2023 Phencyclidine Ql (U) Negative Negative [facility] Comment on above: These are unconfirme d results and should not be used for legal purposes. Drug Cut-Off Concentration: AMPH 1000 ng/mL DORIS 200 ng/mL LEANNE 200 ng/mL COCM 300 ng/mL OP 300 ng/mL PCP 25 ng/mL Platelet mean volume Auto (B ld) [Entitic vol]Ordered By: Emerald Martinez on 06-26-2023 Platelet mean volume (Bld) [Entitic vol] 9.8 fL 6.3-10.7 [facility] Platelets Auto (Bld) [#/Vol] Ordered By: Emerald Martinez on 06-26-2023 Platelets (Bld) [#/Vol] 174 10*3/uL 150-450 [facility] Potassium [Moles/volume] in Serum or PlasmaOrdered By: Emerald Martinez on 06-26-2023 Potassium [Moles/Vol] 3.3 mmol/L 3.5-5.1 [facility] Protein Auto test strip (U) [Mass/Vol]Ordered By: Emerald Martinez on 06-26-2023 Protein (U) [Mass/Vol] Trace mg/dL Negative [facility] Protein [Mass/volume] in Ser um or PlasmaOrdered By: Emerald Martinez on 06-26-2023 Protein [Mass/Vol] 5.5 g/dL 6.4-8.9 [facility] RBC Auto (Bld) [#/Vol]Ordere d By: Emerald Martinez on 06-26-2023 RBC (Bld) [#/Vol] 3.89 10*6/uL 3.60-5.00 [facility] Serum or plasma albumin/glob ulin mass ratioOrdered By: Emerald Martinez on 06-26-2023 Albumin/Globulin [Mass ratio] 1.6 {ratio} [facility] Serum or plasma anion gap de terminationOrdered By: Emerald Martinez on 06-26-2023 Anion gap [Moles/Vol] 12.5 mmol/L 6.0-15.0 [facility] Sodium [Moles/volume] in Ser um or PlasmaOrdered By: Emerald Martinez on 06-26-2023 Sodium [Moles/Vol] 138 mmol/L 136-145 [facility] Specific gravity Auto test s trip (U) [Rel density]Ordered By: Emerald Martinez on 06-26-2023 Specific gravity (U) [Rel density] 1.009 1.001-1.030 [facility] Urea nitrogen [Mass/volume] in Serum or PlasmaOrdered By: Emerald Martinez on 06-26-2023 Urea nitrogen [Mass/Vol] 6 mg/dL 7-25 [facility] Urine bacteria detection by automated methodOrdered By: Emerald Martinez on 06-26-2023 Bacteria Auto Ql (U) Rare None Seen [facility] Urine clarity by refractomet ry automatedOrdered By: Emerald Martinez on 06-26-2023 Clarity Refractometry automated (U) Clear Clear [facility] Urine glucose measurement by automated test strip (mass/volume)Ordered By: Emerald Martinez on 06-26-2023 Glucose Auto test strip (U) [Mass/Vol] Normal mg/dL Normal [facility] Urine hemoglobin detection b y automated test stripOrdered By: Emerald Martinez on 06-26-2023 Hemoglobin Auto test strip Ql (U) 3+ Negative [facility] Urine leukocyte esterase det ection by automated test stripOrdered By: Emerald Martinez on 06-26-2023 Leukocyte esterase Auto test strip Ql (U) Negative Negative [facility] Urobilinogen Auto test strip (U) [Mass/Vol]Ordered By: Emerald Martinez on 06-26-2023 Urobilinogen (U) [Mass/Vol] Normal mg/dL Normal [facility] WBC Auto (Bld) [#/Vol]Ordere d By: Emerald Martinez on 06-26-2023 WBC (Bld) [#/Vol] 13.6 10*3/uL 3.8-11.6 [facility] Yeast detection in urine sed iment by light microscopyOrdered By: Emerald Martinez on 06-26-2023 Yeast LM Ql (Urine sed) Rare [HPF] None Seen [facility] pH Auto test strip (U)Ordere d By: Emerald Martinez on 06-26-2023 pH (U) 6.5 [pH] 5.0-9.0 [facility] 1,25 Dihydroxy Vit D Calcitr olon 06-06-2023 1,25 Dihydroxy Vit D Calcitrol 123.0 pg/mL High 24.8-81.5 [facility] Comment on above: Result Comment: Perf ormed at: BN - [facility] [address] [id number] Satellite Communications Engineer: Dinora Alvarenga MD, Phone: [phone] PERFORMED BY: [place] [address] PATHOLOGIST MENTAL HEALTH PROGRAM DIRECTOR JERRY CASTRO M.D. Performed By: #### H CGQNT #### [address] Alanine aminotransferase [En zymatic activity/volume] in Serum or PlasmaOrdered By: Latrice Sepulveda on 06-06-2023 ALT [Catalytic activity/Vol] 19 U/L 7-52 [facility] Albumin [Mass/volume] in Ser um or Plasma by Bromocresol green (BCG) dye binding methoOrdered By: Latrice Sepulveda on 06-06-2023 Albumin BCG dye [Mass/Vol] 3.5 g/dL 3.5-5.7 [facility] Alkaline phosphatase [Enzyma tic activity/volume] in Serum or PlasmaOrdered By: Latrice Sepulveda on 06-06-2023 ALP [Catalytic activity/Vol] 84 U/L 34-104 [facility] Aspartate aminotransferase [ Enzymatic activity/volume] in Serum or PlasmaOrdered By: Latrice Sepulveda on 06-06-2023 AST [Catalytic activity/Vol] 16 U/L 13-39 [facility] Bilirubin.total [Mass/volume ] in Serum or PlasmaOrdered By: Latrice Sepulveda on 06-06-2023 Bilirubin [Mass/Vol] 0.3 mg/dL 0.3-1.0 [facility] Calcium [Mass/volume] in Ser um or PlasmaOrdered By: Latrice Sepulveda on 06-06-2023 Calcium [Mass/Vol] 8.6 mg/dL 8.6-10.3 [facility] Carbon dioxide, total [Moles /volume] in Serum or PlasmaOrdered By: Latrice Sepulveda on 06-06-2023 CO2 [Moles/Vol] 24.8 mmol/L 21.0-31.0 [facility] Chloride [Moles/volume] in S gris or PlasmaOrdered By: Latrice Sepulveda on 06-06-2023 Chloride [Moles/Vol] 107 mmol/L 98-107 [facility] Comprehensive Metabolic Pane mauricio 06-06-2023 Albumin [Mass/Vol] 3.5 g/dL Normal 3.5-5.7 [facility] Comment on above: Performed By: #### H CGQNT #### [facility] [address] Albumin/Globulin [Mass ratio] 1.5 {ratio} Normal [facility] Comment on above: Performed By: #### H CGQNT #### [facility] [address] ALP [Catalytic activity/Vol] 84 U/L Normal 34-104 [facility] Comment on above: Performed By: #### H CGQNT #### [facility] [address] ALT [Catalytic activity/Vol] 19 U/L Normal 7-52 [facility] Comment on above: Performed By: #### H CGQNT #### [facility] [address] Anion gap [Moles/Vol] 9.9 mmol/L Normal 6.0-15.0 [facility] Comment on above: Performed By: #### H CGQNT #### [facility] [address] AST [Catalytic activity/Vol] 16 U/L Normal 13-39 [facility] Comment on above: Performed By: #### H CGQNT #### [facility] [address] [place] [address] [place] Bilirubin [Mass/Vol] 0.3 mg/dL Normal 0.3-1.0 [facility] Comment on above: Performed By: #### H CGQNT #### [facility] [address] [place] [address] [place] Calcium [Mass/Vol] 8.6 mg/dL Normal 8.6-10.3 [facility] Comment on above: Performed By: #### H CGQNT #### [facility] [address] [place] [address] [place] Chloride [Moles/Vol] 107 mmol/L Normal 98-107 [facility] Comment on above: Performed By: #### H CGQNT #### [facility] [address] CO2 [Moles/Vol] 24.8 mmol/L Normal 21.0-31.0 [facility] Comment on above: Performed By: #### H CGQNT #### [facility] [address] Creatinine [Mass/Vol] 0.45 mg/dL Low 0.60-1.20 [facility] Comment on above: Performed By: #### H CGQNT #### [facility] [address] [place] [address] [place] GFR/1.73 sq M.predicted MDRD (S/P/Bld) [Vol rate/Area] mL/min/{1.73_m2} Normal [facility] Comment on above: Performed By: #### H CGQNT #### [facility] [address] Globulin (S) [Mass/Vol] 2.4 g/dL Normal [facility] Comment on above: Performed By: #### H CGQNT #### [address] Glucose [Mass/Vol] 89 mg/dL Normal 70-100 [facility] Comment on above: Result Comment: [facility] [place][note 2] Glucose Reference Range is dependent on time and content of last meal. Glucose of more than 200 mg/dL in a nonstressed, ambulatory subject supports the diagnosis of Diabetes Mellitus. ADA recommended reference range Performed By: #### H CGQNT #### [facility] [address] [place] [address] [place] Potassium [Moles/Vol] 3.7 mmol/L Normal 3.5-5.1 [facility] Comment on above: Performed By: #### H CGQNT #### [facility] [address] Protein [Mass/Vol] 5.9 g/dL Low 6.4-8.9 [facility] Comment on above: Performed By: #### H CGQNT #### [facility] [address] Sodium [Moles/Vol] 138 mmol/L Normal 136-145 [facility] Comment on above: Performed By: #### H CGQNT #### [facility] [address] Urea nitrogen [Mass/Vol] 5 mg/dL Low 7-25 [facility] Comment on above: Performed By: #### H CGQNT #### [facility] [address] Creatinine [Mass/volume] in Serum or PlasmaOrdered By: Latrice Sepulveda on 06-06-2023 Creatinine [Mass/Vol] 0.45 mg/dL 0.60-1.20 [facility] Globulin Calc (S) [Mass/Vol] Ordered By: Latrice Sepulveda on 06-06-2023 Globulin (S) [Mass/Vol] 2.4 g/dL [facility] Glucose [Mass/volume] in Ser um or PlasmaOrdered By: Latrice Sepulveda on 06-06-2023 Glucose [Mass/Vol] 89 mg/dL 70-100 [facility] Comment on above: ADA recommended refe rence rangeRandom Glucose Reference Range is dependent on time and content of last meal. Glucose of more than 200 mg/dL in a nonstressed, ambulatory subject supports the diagnosis of Diabetes Mellitus. No Panel InformationOrdered By: Latrice Sepulveda on 06-06-2023 Estimated GFR (CKD-EPI) > 60.0 mL/Min [facility] Creatinine Clearance (Chem N/A [facility] Parathyrin.intact [Mass/volu me] in Serum or PlasmaOrdered By: Latrice Sepulveda on 06-06-2023 Parathyrin.intact [Mass/Vol] 45.8 pg/mL [facility] Parathyroid Hormone Intacton 06-06-2023 Parathyroid Hormone Intact 45.8 pg/mL Normal [facility] Comment on above: Result Comment: PERF ORMED BY: [place] [address] PATHOLOGIST MENTAL HEALTH PROGRAM DIRECTOR JERRY CASTRO M.D. Performed By: #### P TH, CMP, [id number] #### [facility] [address] #### [id number] #### [facility] , Potassium [Moles/volume] in Serum or PlasmaOrdered By: Latrice Sepulveda on 06-06-2023 Potassium [Moles/Vol] 3.7 mmol/L 3.5-5.1 [facility] Protein [Mass/volume] in Ser um or PlasmaOrdered By: Latrice Sepulveda on 06-06-2023 Protein [Mass/Vol] 5.9 g/dL 6.4-8.9 [facility] Serum or plasma albumin/glob ulin mass ratioOrdered By: Latrice Sepulveda on 06-06-2023 Albumin/Globulin [Mass ratio] 1.5 {ratio} [facility] Serum or plasma anion gap de terminationOrdered By: Latrice Sepulveda on 06-06-2023 Anion gap [Moles/Vol] 9.9 mmol/L 6.0-15.0 [facility] Serum or plasma calcitriol m easurement (mass/volume)Ordered By: Latrice Sepulveda on 06-06-2023 1,25-dihydroxyvitamin D3 [Mass/Vol] 123.0 pg/mL 24.8-81.5 [facility] Comment on above: Performed at: [address] [id number] Director: Dinora Alvarenga MD, Phone: [phone] Sodium [Moles/volume] in Ser um or PlasmaOrdered By: Latrice Sepulveda on 06-06-2023 Sodium [Moles/Vol] 138 mmol/L 136-145 [facility] Urea nitrogen [Mass/volume] in Serum or PlasmaOrdered By: Latrice Sepulveda on 06-06-2023 Urea nitrogen [Mass/Vol] 5 mg/dL 7-25 [facility] Vitamin D 25 Hydroxy Totalon 06-06-2023 Vitamin D 25 Hydroxy Total 22.4 ng/mL Low 30-100 [facility] Comment on above: Result Comment: HARVINDER MIN D STATUS 25(OH)VITAMIN D RANGE (ng/mL) Deficient <20 Insufficient 20 to <30 Sufficient 30 to 100 Reference: Lino Pena, Gildardo MARTELL, et al. Evaluation,treatment, and prevention of vitamin D deficiency; an Endocrine Society clinical practice guideline. JCEM. 2010; 96(7):1911-30. PERFORMED BY: [address] [address] PATHOLOGIST MENTAL HEALTH PROGRAM DIRECTOR JERRY CASTRO M.D. Performed By: #### H CGQNT #### [facility] [address] [place] [id number] [place] Vitamin D+Metabolites [Mass/ volume] in Serum or PlasmaOrdered By: Latrice Sepulveda on 06-06-2023 Vitamin D+Metabolites [Mass/Vol] 22.4 ng/mL 30-100 [facility] Comment on above: VITAMIN D STATUS 25( OH)VITAMIN D RANGE (ng/mL) Deficient <20 Insufficient 20 to <30Sufficient 30 to 100Reference: Lino Pena, Gildardo MARTELL, et al. Evaluation,treatment, and prevention of vitamin D deficiency; an Endocrine Society clinical practice guideline. JCEM. 2010; 96(7):1911-30. Vitamin D 25 Hydroxy Totalon 05-06-2023 Vitamin D 25 Hydroxy Total 21.0 ng/mL Low 30-100 [facility] Comment on above: Order Comment: NON F ASTING Result Comment: HARVINDER MIN D STATUS 25(OH)VITAMIN D RANGE (ng/mL) Deficient <20 Insufficient 20 to <30 Sufficient 30 to 100 Reference: Lino Pena, Gildardo MARTELL, et al. Evaluation,treatment, and prevention of vitamin D deficiency; an Endocrine Society clinical practice guideline. JCEM. 2010; 96(7):1911-30. PERFORMED BY: [address] [place] [address] PATHOLOGIST MENTAL HEALTH PROGRAM DIRECTOR JERRY CASTRO M.D. Performed By: #### V [id number] #### [facility] [address] [place] [address] [place] Vitamin D+Metabolites [Mass/ volume] in Serum or PlasmaOrdered By: Page Magaña on 05-06-2023 Vitamin D+Metabolites [Mass/Vol] 21.0 ng/mL 30-100 [facility] Comment on above: VITAMIN D STATUS [...] 01-24-2023 ALT [Catalytic activity/Vol] 20 U/L 7-52 [facility] Albumin [Mass/volume] in Ser um or Plasma by Bromocresol green (BCG) dye binding methoOrdered By: Sarmad Luque on 01-24-2023 Albumin BCG dye [Mass/Vol] 4.7 g/dL 3.5-5.7 [facility] Alkaline phosphatase [Enzyma tic activity/volume] in Serum or PlasmaOrdered By: Sarmad Luque on 01-24-2023 ALP [Catalytic activity/Vol] 71 U/L 34-104 [facility] Aspartate aminotransferase [ Enzymatic activity/volume] in Serum or PlasmaOrdered By: Sarmad Luque on 01-24-2023 AST [Catalytic activity/Vol] 14 U/L 13-39 [facility] Automated erythrocytes count in urine sediment (number/area)Ordered By: Sarmad Luque on 01-24-2023 RBC Auto (Urine sed) [#/Area] 20-49 [HPF] 0-4 [facility] Automated leukocytes count i n urine sediment (number/area)Ordered By: Sarmad Luque on 01-24-2023 WBC Auto (Urine sed) [#/Area] 1-2 [HPF] 0-4 [facility] Basic Metabolic Panelon 01-07 Anion gap [Moles/Vol] 11.4 mmol/L Normal 6.0-15.0 [facility] Comment on above: Performed By: #### C BC, HEPATIC, BMP, LIPASE #### [facility] [address] [place] [address] [place] Calcium [Mass/Vol] 9.0 mg/dL Normal 8.6-10.3 [facility] Comment on above: Performed By: #### C BC, HEPATIC, BMP, LIPASE #### [facility] [address] [place] [address] [place] Chloride [Moles/Vol] 105 mmol/L Normal 98-107 [facility] Comment on above: Performed By: #### C BC, HEPATIC, BMP, LIPASE #### [facility] [address] CO2 [Moles/Vol] 25.0 mmol/L Normal 21.0-31.0 [facility] Comment on above: Performed By: #### C BC, HEPATIC, BMP, LIPASE #### [facility] [address] [place] [address] [place] Creatinine [Mass/Vol] 0.67 mg/dL Normal 0.60-1.20 [facility] Comment on above: Performed By: #### C BC, HEPATIC, BMP, LIPASE #### [facility] [address] [place] [address] [place] Creatinine Clr Calc Pharmacy 103.40 [facility] Comment on above: Performed By: #### C BC, HEPATIC, BMP, LIPASE #### [facility] [address] [place] [address] [place] GFR/1.73 sq M.predicted MDRD (S/P/Bld) [Vol rate/Area] mL/min/{1.73_m2} [facility] Comment on above: Performed By: #### C BC, HEPATIC, BMP, LIPASE #### [facility] [address] [place] [address] [place] Glucose [Mass/Vol] 89 mg/dL Normal 70-100 [facility] Comment on above: Result Comment: [place] Glucose Reference Range is dependent on time and content of last meal. Glucose of more than 200 mg/dL in a nonstressed, ambulatory subject supports the diagnosis of Diabetes Mellitus. ADA recommended reference range Performed By: #### C BC, HEPATIC, BMP, LIPASE #### [facility] [address] [place] [address] [place] Potassium [Moles/Vol] 3.4 mmol/L Low 3.5-5.1 [facility] Comment on above: Performed By: #### C BC, HEPATIC, BMP, LIPASE #### [facility] [address] Sodium [Moles/Vol] 138 mmol/L Normal 136-145 [facility] Comment on above: Performed By: #### C BC, HEPATIC, BMP, LIPASE #### [facility] [address] Urea nitrogen [Mass/Vol] 6 mg/dL Low 7-25 [facility] Comment on above: Performed By: #### C BC, HEPATIC, BMP, LIPASE #### [facility] [address] Basophils Auto (Bld) [#/Vol] Ordered By: Sarmad Luque on 01-24-2023 Basophils (Bld) [#/Vol] 0.1 10*3/uL 0.0-0.2 [facility] Basophils/100 WBC Auto (Bld) Ordered By: Sarmad Luque on 01-24-2023 Basophils/100 WBC (Bld) 0.8 % . [facility] Bilirubin Test strip Ql (U)O rdered By: Sarmda Luque on 01-24-2023 Bilirubin Ql (U) Negative Negative [facility] Bilirubin.direct [Mass/volum e] in Serum or PlasmaOrdered By: Sarmad Luque on 01-24-2023 Bilirubin.direct [Mass/Vol] 0.20 mg/dL 0.03-0.18 [facility] Bilirubin.total [Mass/volume ] in Serum or PlasmaOrdered By: Sarmad Luque on 01-24-2023 Bilirubin [Mass/Vol] 0.9 mg/dL 0.3-1.0 [facility] Calcium [Mass/volume] in Ser um or PlasmaOrdered By: Sarmad Luque on 01-24-2023 Calcium [Mass/Vol] 9.0 mg/dL 8.6-10.3 [facility] Carbon dioxide, total [Moles /volume] in Serum or PlasmaOrdered By: Sarmad Luque on 01-24-2023 CO2 [Moles/Vol] 25.0 mmol/L 21.0-31.0 [facility] Chloride [Moles/volume] in S gris or PlasmaOrdered By: Sarmad Luque on 01-24-2023 Chloride [Moles/Vol] 105 mmol/L 98-107 [facility] Choriogonadotropin.beta subu nit [Units/volume] in Serum or PlasmaOrdered By: Sarmad Luque on 01-24-2023 HCG.beta subunit Qn 120.64 m[IU]/mL [facility] Comment on above: Approximate Approxim ate hCG Gestational Age Range (mIU/ml) (weeks)0.2-1 5-50 1-2 50-500 2-3 100-5,000 3-4 500-10,000 4-5 1,000-50,000 5-6 10,000-100,000 6-8 15,000-200,000 8-12 10,000-100,000 Color Auto (U)Ordered By: Eric Luque on 01-24-2023 Color (U) Yellow Yellow [facility] Complete Blood Count Auto Di ffon 01-24-2023 Basophils (Bld) [#/Vol] 0.1 10*3/uL Normal 0.0-0.2 [facility] Comment on above: Result Comment: PERF ORMED BY: [facility] [address] [facility] [place] [address] PATHOLOGIST MENTAL HEALTH PROGRAM DIRECTOR JERRY CASTRO M.D. Performed By: #### C BC, HEPATIC, BMP, LIPASE #### [facility] [address] [place] [address] [place] Basophils/100 WBC (Bld) 0.8 % Normal . [facility] Comment on above: Performed By: #### C BC, HEPATIC, BMP, LIPASE #### [facility] [address] [place] [address] [place] Eosinophils (Bld) [#/Vol] 0.1 10*3/uL Normal 0.0-0.45 [facility] Comment on above: Performed By: #### C BC, HEPATIC, BMP, LIPASE #### [address] Eosinophils/100 WBC (Bld) 1.3 % Normal . [facility] Comment on above: Performed By: #### C BC, HEPATIC, BMP, LIPASE #### [address] Erythrocyte distribution width (RBC) [Ratio] 13.5 % Normal 11.9-15.3 [facility] Comment on above: Performed By: #### C BC, HEPATIC, BMP, LIPASE #### [address] Hematocrit (Bld) [Volume fraction] 41.4 % Normal 34.0-46.4 [facility] Comment on above: Performed By: #### C BC, HEPATIC, BMP, LIPASE #### [address] Hemoglobin (Bld) [Mass/Vol] 14.1 g/dL Normal 11.8-15.4 [facility] Comment on above: Performed By: #### C BC, HEPATIC, BMP, LIPASE #### [address] Lymphocytes (Bld) [#/Vol] 2.4 10*3/uL Normal 1.00-4.8 [facility] Comment on above: Performed By: #### C BC, HEPATIC, BMP, LIPASE #### [address] Lymphocytes/100 WBC (Bld) 31.9 % Normal . [facility] Comment on above: Performed By: #### C BC, HEPATIC, BMP, LIPASE #### [address] MCH (RBC) [Entitic mass] 28.8 pg Normal 24.7-34.3 [facility] Comment on above: Performed By: #### C BC, HEPATIC, BMP, LIPASE #### [address] MCV (RBC) [Entitic vol] 84.3 fL Normal 80-[address] [facility] Comment on above: Performed By: #### C BC, HEPATIC, BMP, LIPASE #### [facility] [address] Mean Corpuscular HGB Conc 34.1 g/dL Normal 32.0-35.0 [facility] Comment on above: Performed By: #### C BC, HEPATIC, BMP, LIPASE #### [address] Monocytes (Bld) [#/Vol] 0.5 10*3/uL Normal 0.0-0.8 [facility] Comment on above: Performed By: #### C BC, HEPATIC, BMP, LIPASE #### [address] Monocytes/100 WBC (Bld) 17.21 % Normal 0.00-20.[address] [facility] Comment on above: Performed By: #### C BC, HEPATIC, BMP, LIPASE #### [place] [address] [place] Monocytes/100 WBC (Bld) 7.3 % Normal . [facility] Comment on above: Performed By: #### C BC, HEPATIC, BMP, LIPASE #### [place] [address] [place] Neutrophils (Bld) [#/Vol] 4.3 10*3/uL Normal 1.8-7.7 [facility] Comment on above: Performed By: #### C BC, HEPATIC, BMP, LIPASE #### [place] [address] [place] Neutrophils/100 WBC (Bld) 58.7 % Normal . [facility] Comment on above: Performed By: #### C BC, HEPATIC, BMP, LIPASE #### [place] [address] [place] NRBC% 0.1 /100{WBC} Normal 0-0.5 [facility] Comment on above: Performed By: #### C BC, HEPATIC, BMP, LIPASE #### [facility] [address] Platelet mean volume (Bld) [Entitic vol] 9.2 fL Normal 6.3-10.7 [facility] Comment on above: Performed By: #### C BC, HEPATIC, BMP, LIPASE #### [facility] [address] Platelets (Bld) [#/Vol] 222 10*3/uL Normal 150-450 [facility] Comment on above: Performed By: #### C BC, HEPATIC, BMP, LIPASE #### [address] RBC (Bld) [#/Vol] 4.91 10*6/uL Normal 3.60-5.00 [facility] Comment on above: Performed By: #### C BC, HEPATIC, BMP, LIPASE #### [address] WBC (Bld) [#/Vol] 7.4 10*3/uL Normal 3.8-11.6 [facility] Comment on above: Performed By: #### C BC, HEPATIC, BMP, LIPASE #### [address] Creatinine [Mass/volume] in Serum or PlasmaOrdered By: Sarmad Luque on 01-24-2023 Creatinine [Mass/Vol] 0.67 mg/dL 0.60-1.20 [facility] Dipstick and Microscopicon 0 01-24-2023 Appearance (U) Cloudy Critically abnormal Clear [facility] Comment on above: Order Comment: Name Collection Type:: Clean-Voided Midstream Performed By: #### U HCG, ADDONUAPLUS #### [facility] [address] [place] [address] Bacteria,Urine None Seen Normal None Seen [facility] Comment on above: Order Comment: Name Collection Type:: Clean-Voided Midstream Performed By: #### U HCG, ADDONUAPLUS #### [address] Bilirubin,Urine Negative Normal Negative [facility] Comment on above: Order Comment: Name Collection Type:: Clean-Voided Midstream Performed By: #### U HCG, ADDONUAPLUS #### [facility] [address] [place] [address] [place] Color (U) Yellow Normal Yellow [facility] Comment on above: Order Comment: Name Collection Type:: Clean-Voided Midstream Performed By: #### U HCG, ADDONUAPLUS #### [facility] [address] [place] [address] [place] Glucose Ql (U) Normal Normal Normal [facility] Comment on above: Order Comment: Name Collection Type:: Clean-Voided Midstream Performed By: #### U HCG, ADDONUAPLUS #### [facility] [address] [place] [address] [place] Hyaline Casts,Urine 0-8 Normal 0-8 [facility] Comment on above: Order Comment: Name Collection Type:: Clean-Voided Midstream Performed By: #### U HCG, ADDONUAPLUS #### [facility] [address] [place] [address] [place] Ketones Ql (U) Trace High Negative [facility] Comment on above: Order Comment: Name Collection Type:: Clean-Voided Midstream Performed By: #### U HCG, ADDONUAPLUS #### [facility] [address] [place] [address] [place] Leukocyte esterase Test strip Ql (U) 1+ High Negative [facility] Comment on above: Order Comment: Name Collection Type:: Clean-Voided Midstream Performed By: #### U HCG, ADDONUAPLUS #### [facility] [address] [place] [address] [place] Nitrite,Urine Negative Normal Negative [facility] Comment on above: Order Comment: Name Collection Type:: Clean-Voided Midstream Performed By: #### U HCG, ADDONUAPLUS #### [facility] [address] [place] [address] [place] Occult Blood,Urine 2+ High Negative [facility] Comment on above: Order Comment: Name Collection Type:: Clean-Voided Midstream Performed By: #### U HCG, ADDONUAPLUS #### [address] pH (U) 6.0 [pH] Normal 5.0-9.0 [facility] Comment on above: Order Comment: Name Collection Type:: Clean-Voided Midstream Performed By: #### U HCG, ADDONUAPLUS #### [address] Protein,Urine Trace High Negative [facility] Comment on above: Order Comment: Name Collection Type:: Clean-Voided Midstream Performed By: #### U HCG, ADDONUAPLUS #### [address] RBC,Urine 20-49 High 0-4 [facility] Comment on above: Order Comment: Name Collection Type:: Clean-Voided Midstream Performed By: #### U HCG, ADDONUAPLUS #### [address] Specificy Medicine [place],Urine 1.022 Normal 1.001-1.030 [facility] Comment on above: Order Comment: Name Collection Type:: Clean-Voided Midstream Performed By: #### U HCG, ADDONUAPLUS #### [address] Squamous Epithelial Cell,Urine 5-9 High 0-2 [facility] Comment on above: Order Comment: Name Collection Type:: Clean-Voided Midstream Performed By: #### U HCG, ADDONUAPLUS #### [address] Urobilinogen,Urine Normal Normal Normal [facility] Comment on above: Order Comment: Name Collection Type:: Clean-Voided Midstream Performed By: #### U HCG, ADDONUAPLUS #### [address] WBC,Urine 1-2 Normal 0-4 [facility] Comment on above: Order Comment: Name Collection Type:: Clean-Voided Midstream Performed By: #### U HCG, ADDONUAPLUS #### [facility] [address] [id number] [place] Eosinophils Auto (Bld) [#/Vo l]Ordered By: Sarmad Luque on 01-24-2023 Eosinophils (Bld) [#/Vol] 0.1 10*3/uL 0.0-0.45 [facility] Eosinophils/100 WBC Auto (Bl d)Ordered By: Sarmad Luque on 01-24-2023 Eosinophils/100 WBC (Bld) 1.3 % . [facility] Erythrocyte distribution wid th Auto (RBC) [Ratio]Ordered By: Sarmad Luque on 01-24-2023 Erythrocyte distribution width (RBC) [Ratio] 13.5 % 11.9-15.3 [facility] Globulin Calc (S) [Mass/Vol] Ordered By: Sarmad Luque on 01-24-2023 Globulin (S) [Mass/Vol] 2.7 g/dL [facility] Glucose [Mass/volume] in Ser um or PlasmaOrdered By: Sarmad Luque on 01-24-2023 Glucose [Mass/Vol] 89 mg/dL 70-100 [facility] Comment on above: ADA recommended refe rence rangeRandom Glucose Reference Range is dependent on time and content of last meal. Glucose of more than 200 mg/dL in a nonstressed, ambulatory subject supports the diagnosis of Diabetes Mellitus. HCG ( test) IAshane roque Ql (U)Ordered By: Sarmad Luque on 01-24-2023 HCG ( test) Ql (U) Positive [facility] HCG,Quantitativeon 3 HCG,Quantitative 120.64 m[iU]/mL Normal [facility] Comment on above: Result Comment: Appr oximate Approximate hCG Gestational Age Range (mIU/ml) (weeks) 0.2-1 5-50 1-2 50-500 2-3 100-5,000 3-4 500-10,000 4-5 1,000-50,000 5-6 10,000-100,000 6-8 15,000-200,000 8-12 10,000-100,000 PERFORMED BY: [facility] [address] [id number] PATHOLOGIST MENTAL HEALTH PROGRAM DIRECTOR JERRY CASTRO M.D. Performed By: #### H CGQNT #### [address] HCG,Urineon 01-24-2023 Beta HCG ( test) Ql (U) Positive High [facility] Comment on above: Order Comment: Name Collection Type:: Clean-Voided Midstream Result Comment: PERF ORMED BY: [place] [address] PATHOLOGIST MENTAL HEALTH PROGRAM DIRECTOR JERRY CASTRO M.D. Performed By: #### U HCG, ADDONUAPLUS #### [address] Hematocrit Auto (Bld) [Volum e fraction]Ordered By: Sarmad Luque on 01-24-2023 Hematocrit (Bld) [Volume fraction] 41.4 % 34.0-46.4 [facility] Hemoglobin [Mass/volume] in BloodOrdered By: Sarmad Luque on 01-24-2023 Hemoglobin (Bld) [Mass/Vol] 14.1 g/dL 11.8-15.4 [facility] Hepatic Panelon 01-24-2023 Albumin [Mass/Vol] 4.7 g/dL Normal 3.5-5.7 [facility] Comment on above: Performed By: #### C BC, HEPATIC, BMP, LIPASE #### [address] Albumin/Globulin [Mass ratio] 1.7 {ratio} Normal [facility] Comment on above: Performed By: #### C BC, HEPATIC, BMP, LIPASE #### [facility] [address] [place] [address] ALP [Catalytic activity/Vol] 71 U/L Normal 34-104 [facility] Comment on above: Performed By: #### C BC, HEPATIC, BMP, LIPASE #### [address] ALT [Catalytic activity/Vol] 20 U/L Normal 7-52 [facility] Comment on above: Performed By: #### C BC, HEPATIC, BMP, LIPASE #### [facility] [address] AST [Catalytic activity/Vol] 14 U/L Normal 13-39 [facility] Comment on above: Performed By: #### C BC, HEPATIC, BMP, LIPASE #### [facility] [address] Bilirubin [Mass/Vol] 0.9 mg/dL Normal 0.3-1.0 [facility] Comment on above: Performed By: #### C BC, HEPATIC, BMP, LIPASE #### [facility] [address] Bilirubin,Indirect 0.7 mg/dL Normal [facility] Comment on above: Performed By: #### C BC, HEPATIC, BMP, LIPASE #### [facility] [address] Bilirubin.indirect [Mass/Vol] 0.20 mg/dL High 0.03-0.18 [facility] Comment on above: Performed By: #### C BC, HEPATIC, BMP, LIPASE #### [facility] [address] Globulin (S) [Mass/Vol] 2.7 g/dL Normal [facility] Comment on above: Performed By: #### C BC, HEPATIC, BMP, LIPASE #### [facility] [address] Protein [Mass/Vol] 7.4 g/dL Normal 6.4-8.9 [facility] Comment on above: Performed By: #### C BC, HEPATIC, BMP, LIPASE #### [facility] [address] Ketones Auto test strip (U) [Mass/Vol]Ordered By: Sarmad Luque on 01-24-2023 Ketones (U) [Mass/Vol] Trace Negative [facility] - UrinalysisOrder ed By: Sarmad Luque on 01-24-2023 Hyaline casts LM Ql (Urine sed) 0-8 [LPF] 0-8 [facility] Leukocytes [#/volume] correc mague for nucleated erythrocytes in Blood by Automated counOrdered By: Sarmad Luque on 01-24-2023 WBC corrected for nucl RBC Auto (Bld) [#/Vol] 7.4 10*3/uL 3.8-11.6 [facility] Lipaseon 01-24-2023 Lipase [Catalytic activity/Vol] 47.0 U/L Normal 11.0-82.0 [facility] Comment on above: Result Comment: PERF ORMED BY: [place] [address] PATHOLOGIST MENTAL HEALTH PROGRAM DIRECTOR JERRY CASTRO M.D. Performed By: #### C BC, HEPATIC, BMP, LIPASE #### [address] Lipase [Enzymatic activity/v olume] in Serum or PlasmaOrdered By: Sarmad Luuqe on 01-24-2023 Lipase [Catalytic activity/Vol] 47.0 U/L 11.0-82.0 [facility] Lymphocytes Auto (Bld) [#/Vo l]Ordered By: Sarmad Luque on 01-24-2023 Lymphocytes (Bld) [#/Vol] 2.4 10*3/uL 1.00-4.8 [facility] Lymphocytes/100 WBC Auto (Bl d)Ordered By: Sarmad Luque on 01-24-2023 Lymphocytes/100 WBC (Bld) 31.9 % . [facility] MCH Auto (RBC) [Entitic mass ]Ordered By: Sarmad Luque on 01-24-2023 MCH (RBC) [Entitic mass] 28.8 pg 24.7-34.3 [facility] MCHC Auto (RBC) [Mass/Vol]Or dered By: Sarmad Luque on 01-24-2023 MCHC (RBC) [Mass/Vol] 34.1 g/dL 32.0-35.0 [facility] MCV Auto (RBC) [Entitic vol] Ordered By: Sarmad Luque on 01-24-2023 MCV (RBC) [Entitic vol] 84.3 fL 80-[address] [facility] Monocyte distribution width [Entitic volume] in Blood by AutomatedOrdered By: Sarmad Luque on 01-24-2023 Monocyte distribution width Auto (Bld) [Entitic vol] 17.21 % 0.00-20.00 [facility] Monocytes Auto (Bld) [#/Vol] Ordered By: Sarmad Luque on 01-24-2023 Monocytes (Bld) [#/Vol] 0.5 10*3/uL 0.0-0.8 [facility] Monocytes/100 WBC Auto (Bld) Ordered By: Sarmad Luque on 01-24-2023 Monocytes/100 WBC (Bld) 7.3 % . [facility] Neutrophils Auto (Bld) [#/Vo l]Ordered By: Sarmad Luque on 01-24-2023 Neutrophils (Bld) [#/Vol] 4.3 10*3/uL 1.8-7.7 [facility] Neutrophils/100 WBC Auto (Bl d)Ordered By: Sarmad Luque on 01-24-2023 Neutrophils/100 WBC (Bld) 58.7 % . [facility] Nitrite Test strip Ql (U)Ord ered By: Sarmad Luque on 01-24-2023 Nitrite Ql (U) Negative Negative [facility] No Panel InformationOrdered By: Sarmad Luque on 01-24-2023 Estimated GFR (CKD-EPI) > 60.0 mL/Min [facility] Creatinine Clearance (Chem 103.40 [facility] Nucleated erythrocytes [Pres ence] in Blood by Automated countOrdered By: Sarmad Luque on 01-24-2023 Nucleated RBC Auto Ql (Bld) 0.1 /100{WBC} 0-0.5 [facility] Platelet mean volume Auto (B ld) [Entitic vol]Ordered By: Sarmad Luque on 01-24-2023 Platelet mean volume (Bld) [Entitic vol] 9.2 fL 6.3-10.7 [facility] Platelets Auto (Bld) [#/Vol] Ordered By: Sarmad Luque on 01-24-2023 Platelets (Bld) [#/Vol] 222 10*3/uL 150-450 [facility] Potassium [Moles/volume] in Serum or PlasmaOrdered By: Sarmad Luque on 01-24-2023 Potassium [Moles/Vol] 3.4 mmol/L 3.5-5.1 [facility] Protein Auto test strip (U) [Mass/Vol]Ordered By: Sarmad Luuqe on 01-24-2023 Protein (U) [Mass/Vol] Trace mg/dL Negative [facility] Protein [Mass/volume] in Ser um or PlasmaOrdered By: Sarmad Luque on 01-24-2023 Protein [Mass/Vol] 7.4 g/dL 6.4-8.9 [facility] RBC Auto (Bld) [#/Vol]Ordere d By: Sarmad Luque on 01-24-2023 RBC (Bld) [#/Vol] 4.91 10*6/uL 3.60-5.00 [facility] Serum or plasma albumin/glob ulin mass ratioOrdered By: Sarmad Luque on 01-24-2023 Albumin/Globulin [Mass ratio] 1.7 {ratio} [facility] Serum or plasma anion gap de terminationOrdered By: Sarmad Luque on 01-24-2023 Anion gap [Moles/Vol] 11.4 mmol/L 6.0-15.0 [facility] Serum or plasma non-glucuron idated bilirubin measurement (mass/volume)Ordered By: Sarmad Luque on 01-24-2023 Bilirubin.indirect [Mass/Vol] 0.7 mg/dL [facility] Sodium [Moles/volume] in Ser um or PlasmaOrdered By: Sarmad Luque on 01-24-2023 Sodium [Moles/Vol] 138 mmol/L 136-145 [facility] Specific gravity Auto test s trip (U) [Rel density]Ordered By: Sarmad Luque on 01-24-2023 Specific gravity (U) [Rel density] 1.022 1.001-1.030 [facility] Squamous epithelial cells de tection in urine sediment by light microscopyOrdered By: Sarmad Luque on 01-24-2023 Epithelial cells.squamous LM Ql (Urine sed) 5-9 [HPF] 0-2 [facility] US OB transvaginalon 023 OB transvaginal [address] [place] [address] Ultrasound Report Signed Patient: Elyssa Smith MR#: [id number] : 1990 Acct:[id number] Age/Sex: 32 / F ADM Date: 01/24/23 Loc: ER Room: Type: [facility] ER Attending Dr: Ordering Provider: Sarmad Luque DO Date of Service: 01/24/23 US/US OB <= 14 weeks fetus: Abdominal Pain ([id number]) US/US OB transvaginal: PAIN Copies to: Sarmad Luque, EXAMINATION TYPE: US OB <= 14 weeks [...] Carrillo Ziegler M.D.01/24/2023 2:06 PM Dictation Location: RADIO-PC-13 Tech: Ashely Doll Transcribed By: SILVINA 01/24/23 1406 Dictated By: Carrillo Ziegler II, MD 01/24/23 1401 Signed By: 01/24/23 1406 [facility] US renal BIon 01-24-2023 US renal BI [facility] [place] [address] Ultrasound Report Signed Patient: Elsysa Smith MR#: [id number] : 1990 Acct:[id number] Age/Sex: 32 / F ADM Date: 01/24/23 Loc: ER Room: Type: [facility] ER Attending Dr: Ordering Provider: [...] Carrillo Ziegler M.D.01/24/2023 2:12 PM Dictation Location: RADIO-PC-13 Tech: Ashelymarcela Doll Transcribed By: SILVINA 01/24/23 1412 Dictated By: Carrillo Ziegler II, MD 01/24/23 1410 Signed By: 01/24/23 141 [facility] Urea nitrogen [Mass/volume] in Serum or PlasmaOrdered By: Sarmad Luque on 01-24-2023 Urea nitrogen [Mass/Vol] 6 mg/dL 7-25 [facility] Urine bacteria detection by automated methodOrdered By: Sarmad Luque on 01-24-2023 Bacteria Auto Ql (U) None seen None Seen [facility] Urine clarity by refractomet ry automatedOrdered By: Sarmad Luque on 01-24-2023 Clarity Refractometry automated (U) Cloudy Clear [facility] Urine glucose measurement by automated test strip (mass/volume)Ordered By: Sarmad Luque on 01-24-2023 Glucose Auto test strip (U) [Mass/Vol] Normal mg/dL Normal [facility] Urine hemoglobin detection b y automated test stripOrdered By: Sarmad Luque on 01-24-2023 Hemoglobin Auto test strip Ql (U) 2+ Negative [facility] Urine leukocyte esterase det ection by automated test stripOrdered By: Sarmad Luque on 01-24-2023 Leukocyte esterase Auto test strip Ql (U) 1+ Negative [facility] Urobilinogen Auto test strip (U) [Mass/Vol]Ordered By: Sarmad Luque on 01-24-2023 Urobilinogen (U) [Mass/Vol] Normal mg/dL Normal [facility] WBC Auto (Bld) [#/Vol]Ordere d By: Sarmad Luque on 01-24-2023 WBC (Bld) [#/Vol] 7.4 10*3/uL 3.8-11.6 [facility] pH Auto test strip (U)Ordere d By: Sarmad Luque on 01-24-2023 pH (U) 6.0 [pH] 5.0-9.0 [facility] ALFRED with Reflexon 10-27-2022 ALFRED with Reflex Negative Normal Negative [facility] Comment on above: Result Comment: Perf ormed at: CB - [facility] [address] [id number] Satellite Communications Engineer: Ismael Suh PhD, Phone: [phone] PERFORMED BY: [address] [place] [address] PATHOLOGIST MENTAL HEALTH PROGRAM DIRECTOR JERRY CASTRO M.D. Performed By: #### H CGQNT #### [facility] [address] Alanine aminotransferase [En zymatic activity/volume] in Serum or PlasmaOrdered By: Page Magaña on 10-27-2022 ALT [Catalytic activity/Vol] 30 U/L 7-52 [facility] Albumin [Mass/volume] in Ser um or Plasma by Bromocresol green (BCG) dye binding methoOrdered By: Page Magaña on 10-27-2022 Albumin BCG dye [Mass/Vol] 4.2 g/dL 3.5-5.7 [facility] Alkaline phosphatase [Enzyma tic activity/volume] in Serum or PlasmaOrdered By: Page Magaña on 10-27-2022 ALP [Catalytic activity/Vol] 86 U/L 34-104 [facility] Aspartate aminotransferase [ Enzymatic activity/volume] in Serum or PlasmaOrdered By: Page Magaña on 10-27-2022 AST [Catalytic activity/Vol] 17 U/L 13-39 [facility] Basophils Auto (Bld) [#/Vol] Ordered By: Page Magaña on 10-27-2022 Basophils (Bld) [#/Vol] 0.1 10*3/uL 0.0-0.2 [facility] Basophils/100 WBC Auto (Bld) Ordered By: Page Magaña on 10-27-2022 Basophils/100 WBC (Bld) 0.6 % . [facility] Bilirubin.total [Mass/volume ] in Serum or PlasmaOrdered By: Page Magaña on 10-27-2022 Bilirubin [Mass/Vol] 0.6 mg/dL 0.3-1.0 [facility] Calcium [Mass/volume] in Ser um or PlasmaOrdered By: Page Magaña on 10-27-2022 Calcium [Mass/Vol] 9.0 mg/dL 8.6-10.3 [facility] Carbon dioxide, total [Moles /volume] in Serum or PlasmaOrdered By: Page Magaña 10-27-2022 CO2 [Moles/Vol] 24.7 mmol/L 21.0-31.0 [facility] Chloride [Moles/volume] in S gris or PlasmaOrdered By: Page Magaña on 10-27-2022 Chloride [Moles/Vol] 107 mmol/L 98-107 [facility] Cholesterol [Mass/volume] in Serum or PlasmaOrdered By: Page Magaña on 10-27-2022 Cholesterol [Mass/Vol] 209 mg/dL 140-200 [facility] Comment on above: Chol less than 200 m g/dl low riskChol 201-239 mg/dl borderline riskChol 240 mg/dl and greater high risk Cholesterol in LDL Calc [Mas s/Vol]Ordered By: Page Magaña on 10-27-2022 Cholesterol in LDL [Mass/Vol] 155 mg/dL 0-100 [facility] Comment on above: LDL ATP III CLASSIFI CATIONLDL less than 100 mg/dL OptimalLDL 100-129 mg/dL Near or above optimalLDL 130-159 mg/dL Borderline highLDL 160-189 mg/dL HighLDL greater than 189 mg/dL Very high Cholesterol in VLDL Calc [Ma ss/Vol]Ordered By: Page Magaña on 10-27-2022 Cholesterol in VLDL [Mass/Vol] 11 mg/dL [facility] Complete Blood Count Auto Di ffon 10-27-2022 Basophils (Bld) [#/Vol] 0.1 10*3/uL Normal 0.0-0.2 [facility] Comment on above: Result Comment: PERF ORMED BY: [place] [address] PATHOLOGIST MENTAL HEALTH PROGRAM DIRECTOR JERRY CASTRO M.D. Performed By: #### H CGQNT #### [facility] [address] [place] [address] [place] Basophils/100 WBC (Bld) 0.6 % Normal . [facility] Comment on above: Performed By: #### H CGQNT #### [facility] [address] [place] [address] [place] Eosinophils (Bld) [#/Vol] 0.1 10*3/uL Normal 0.0-0.45 [facility] Comment on above: Performed By: #### H CGQNT #### [address] Eosinophils/100 WBC (Bld) 1.6 % Normal . [facility] Comment on above: Performed By: #### H CGQNT #### [address] Erythrocyte distribution width (RBC) [Ratio] 14.4 % Normal 11.9-15.3 [facility] Comment on above: Performed By: #### H CGQNT #### [address] Hematocrit (Bld) [Volume fraction] 40.5 % Normal 34.0-46.4 [facility] Comment on above: Performed By: #### H CGQNT #### [address] Hemoglobin (Bld) [Mass/Vol] 13.5 g/dL Normal 11.8-15.4 [facility] Comment on above: Performed By: #### H CGQNT #### [address] Lymphocytes (Bld) [#/Vol] 2.8 10*3/uL Normal 1.00-4.8 [facility] Comment on above: Performed By: #### H CGQNT #### [address] Lymphocytes/100 WBC (Bld) 30.3 % Normal . [facility] Comment on above: Performed By: #### H CGQNT #### [address] MCH (RBC) [Entitic mass] 28.1 pg Normal 24.7-34.3 [facility] Comment on above: Performed By: #### H CGQNT #### [address] MCV (RBC) [Entitic vol] 84.6 fL Normal 80-[address] [facility] Comment on above: Performed By: #### H CGQNT #### [address] Mean Corpuscular HGB Conc 33.3 g/dL Normal 32.0-35.0 [facility] Comment on above: Performed By: #### H CGQNT #### [address] Monocytes (Bld) [#/Vol] 0.6 10*3/uL Normal 0.0-0.8 [facility] Comment on above: Performed By: #### H CGQNT #### [address] Monocytes/100 WBC (Bld) 6.7 % Normal . [facility] Comment on above: Performed By: #### H CGQNT #### [address] Neutrophils (Bld) [#/Vol] 5.5 10*3/uL Normal 1.8-7.7 [facility] Comment on above: Performed By: #### H CGQNT #### [address] Neutrophils/100 WBC (Bld) 60.8 % Normal . [facility] Comment on above: Performed By: #### H CGQNT #### [address] NRBC% 0.3 /100{WBC} Normal 0-0.5 [facility] Comment on above: Performed By: #### H CGQNT #### [address] Platelet mean volume (Bld) [Entitic vol] 8.9 fL Normal 6.3-10.7 [facility] Comment on above: Performed By: #### H CGQNT #### [facility] [address] [place] [address] Platelets (Bld) [#/Vol] 246 10*3/uL Normal 150-450 [facility] Comment on above: Performed By: #### H CGQNT #### [address] RBC (Bld) [#/Vol] 4.79 10*6/uL Normal 3.60-5.00 [facility] Comment on above: Performed By: #### H CGQNT #### [facility] [address] [place] [address] WBC (Bld) [#/Vol] 9.1 10*3/uL Normal 3.8-11.6 [facility] Comment on above: Performed By: #### H CGQNT #### [address] Comprehensive Metabolic Pane mauricio 10-27-2022 Albumin [Mass/Vol] 4.2 g/dL Normal 3.5-5.7 [facility] Comment on above: Order Comment: PT IS FASTING Performed By: #### H CGQNT #### [address] Albumin/Globulin [Mass ratio] 1.8 {ratio} Normal [facility] Comment on above: Order Comment: PT IS FASTING Performed By: #### H CGQNT #### [facility] [address] [place] [address] ALP [Catalytic activity/Vol] 86 U/L Normal 34-104 [facility] Comment on above: Order Comment: PT IS FASTING Performed By: #### H CGQNT #### [address] ALT [Catalytic activity/Vol] 30 U/L Normal 7-52 [facility] Comment on above: Order Comment: PT IS FASTING Performed By: #### H CGQNT #### [facility] [address] [place] [address] Anion gap [Moles/Vol] 10.6 mmol/L Normal 6.0-15.0 [facility] Comment on above: Order Comment: PT IS FASTING Performed By: #### H CGQNT #### [address] AST [Catalytic activity/Vol] 17 U/L Normal 13-39 [facility] Comment on above: Order Comment: PT IS FASTING Performed By: #### H CGQNT #### [facility] [address] Bilirubin [Mass/Vol] 0.6 mg/dL Normal 0.3-1.0 [facility] Comment on above: Order Comment: PT IS FASTING Performed By: #### H CGQNT #### [facility] [address] [place] [address] Calcium [Mass/Vol] 9.0 mg/dL Normal 8.6-10.3 [facility] Comment on above: Order Comment: PT IS FASTING Performed By: #### H CGQNT #### [facility] [address] [place] [address] Chloride [Moles/Vol] 107 mmol/L Normal 98-107 [facility] Comment on above: Order Comment: PT IS FASTING Performed By: #### H CGQNT #### [facility] [address] [place] [address] CO2 [Moles/Vol] 24.7 mmol/L Normal 21.0-31.0 [facility] Comment on above: Order Comment: PT IS FASTING Performed By: #### H CGQNT #### [facility] [address] [place] [address] Creatinine [Mass/Vol] 0.62 mg/dL Normal 0.60-1.20 [facility] Comment on above: Order Comment: PT IS FASTING Performed By: #### H CGQNT #### [facility] [address] [place] [address] [place] GFR/1.73 sq M.predicted MDRD (S/P/Bld) [Vol rate/Area] mL/min/{1.73_m2} Normal [facility] Comment on above: Order Comment: PT IS FASTING Performed By: #### H CGQNT #### [facility] [address] [place] [address] Globulin (S) [Mass/Vol] 2.3 g/dL Normal [facility] Comment on above: Order Comment: PT IS FASTING Performed By: #### H CGQNT #### [facility] [address] Glucose [Mass/Vol] 93 mg/dL Normal 70-100 [facility] Comment on above: Order Comment: PT IS FASTING Result Comment: [facility] [place] 2] Glucose Reference Range is dependent on time and content of last meal. Glucose of more than 200 mg/dL in a nonstressed, ambulatory subject supports the diagnosis of Diabetes Mellitus. ADA recommended reference range Performed By: #### H CGQNT #### [facility] [address] [place] [address] Potassium [Moles/Vol] 4.3 mmol/L Normal 3.5-5.1 [facility] Comment on above: Order Comment: PT IS FASTING Performed By: #### H CGQNT #### [facility] [address] [place] [address] Protein [Mass/Vol] 6.5 g/dL Normal 6.4-8.9 [facility] Comment on above: Order Comment: PT IS FASTING Performed By: #### H CGQNT #### [facility] [address] [place] [address] Sodium [Moles/Vol] 138 mmol/L Normal 136-145 [facility] Comment on above: Order Comment: PT IS FASTING Performed By: #### H CGQNT #### [facility] [address] [place] [address] [place] Urea nitrogen [Mass/Vol] 12 mg/dL Normal 7-25 [facility] Comment on above: Order Comment: PT IS FASTING Performed By: #### H CGQNT #### [facility] [address] [place] [address] [place] Creatinine [Mass/volume] in Serum or PlasmaOrdered By: Page Magaña on 10-27-2022 Creatinine [Mass/Vol] 0.62 mg/dL 0.60-1.20 [facility] Eosinophils Auto (Bld) [#/Vo l]Ordered By: Page Magaña on 10-27-2022 Eosinophils (Bld) [#/Vol] 0.1 10*3/uL 0.0-0.45 [facility] Eosinophils/100 WBC Auto (Bl d)Ordered By: Page Magaña on 10-27-2022 Eosinophils/100 WBC (Bld) 1.6 % . [facility] Erythrocyte distribution wid th Auto (RBC) [Ratio]Ordered By: Page Magaña on 10-27-2022 Erythrocyte distribution width (RBC) [Ratio] 14.4 % 11.9-15.3 [facility] Globulin Calc (S) [Mass/Vol] Ordered By: Page Magaña on 10-27-2022 Globulin (S) [Mass/Vol] 2.3 g/dL [facility] Glucose [Mass/volume] in Ser um or PlasmaOrdered By: Page Magaña on 10-27-2022 Glucose [Mass/Vol] 93 mg/dL 70-100 [facility] Comment on above: ADA recommended refe rence rangeRandom Glucose Reference Range is dependent on time and content of last meal. Glucose of more than 200 mg/dL in a nonstressed, ambulatory subject supports the diagnosis of Diabetes Mellitus. Hematocrit Auto (Bld) [Volum e fraction]Ordered By: Page Magaña on 10-27-2022 Hematocrit (Bld) [Volume fraction] 40.5 % 34.0-46.4 [facility] Hemoglobin [Mass/volume] in BloodOrdered By: Page Magaña on 10-27-2022 Hemoglobin (Bld) [Mass/Vol] 13.5 g/dL 11.8-15.4 [facility] Leukocytes [#/volume] correc mague for nucleated erythrocytes in Blood by Automated counOrdered By: Page Magaña on 10-27-2022 WBC corrected for nucl RBC Auto (Bld) [#/Vol] 9.1 10*3/uL 3.8-11.6 [facility] Lipid Panelon 10-27-2022 Cholesterol [Mass/Vol] 209 mg/dL High 140-200 [facility] Comment on above: Order Comment: PT IS FASTING Result Comment: Chol less than 200 mg/dl low risk Chol 201-239 mg/dl borderline risk Chol 240 mg/dl and greater high risk Performed By: #### H CGQNT #### [facility] [address] Cholesterol in HDL [Mass/Vol] 43 mg/dL Normal 35-85 [facility] Comment on above: Order Comment: PT IS FASTING Result Comment: HDL CHOL ATP-III CLASSIFICATION Cardiovascular Risk HDL > or equal to 60 mg/dL LOW HDL < 40 mg/dL HIGH Performed By: #### H CGQNT #### [facility] [address] Cholesterol.total/Poonam sterol in HDL [Mass ratio] 4.9 {ratio} Normal <5.0 [facility] Comment on above: Order Comment: PT IS FASTING Performed By: #### H CGQNT #### [facility] [address] LDL Cholesterol,Calculated 155 mg/dL High 0-100 [facility] Comment on above: Order Comment: PT IS FASTING Result Comment: LDL ATP III CLASSIFICATION LDL less than 100 mg/dL Optimal LDL 100-129 mg/dL Near or above optimal LDL 130-159 mg/dL Borderline high LDL 160-189 mg/dL High LDL greater than 189 mg/dL Very high Performed By: #### H CGQNT #### [facility] [address] Triglyceride w/Reflex 55 mg/dL Normal 0-149 [facility] Comment on above: Order Comment: PT IS FASTING Result Comment: TRIG ATP III CLASSIFICATION TRIG less than 150 mg/dL Normal TRIG 150-199 mg/dL Borderline high TRIG 200-500 mg/dL High TRIG greater than 500 mg/dL Very high Standard traceable to the Center for Disease Conrtrol and Prevention (CDC) test method. Performed By: #### H CGQNT #### [facility] [address] VLDL CHOLESTEROL 11 mg/dL Normal [facility] Comment on above: Order Comment: PT IS FASTING Performed By: #### H CGQNT #### [facility] [address] [place] [address] [place] Lymphocytes Auto (Bld) [#/Vo l]Ordered By: Page Magaña on 10-27-2022 Lymphocytes (Bld) [#/Vol] 2.8 10*3/uL 1.00-4.8 [facility] Lymphocytes/100 WBC Auto (Bl d)Ordered By: Page Magaña on 10-27-2022 Lymphocytes/100 WBC (Bld) 30.3 % . [facility] MCH Auto (RBC) [Entitic mass ]Ordered By: Page Magaña on 10-27-2022 MCH (RBC) [Entitic mass] 28.1 pg 24.7-34.3 [facility] MCHC Auto (RBC) [Mass/Vol]Or dered By: Page Magaña on 10-27-2022 MCHC (RBC) [Mass/Vol] 33.3 g/dL 32.0-35.0 [facility] MCV Auto (RBC) [Entitic vol] Ordered By: Page Magaña on 10-27-2022 MCV (RBC) [Entitic vol] 84.6 fL 80-[address] [facility] Monocytes Auto (Bld) [#/Vol] Ordered By: Page Magaña on 10-27-2022 Monocytes (Bld) [#/Vol] 0.6 10*3/uL 0.0-0.8 [facility] Monocytes/100 WBC Auto (Bld) Ordered By: Page Magaña on 10-27-2022 Monocytes/100 WBC (Bld) 6.7 % . [facility] Neutrophils Auto (Bld) [#/Vo l]Ordered By: Page Magaña on 10-27-2022 Neutrophils (Bld) [#/Vol] 5.5 10*3/uL 1.8-7.7 [facility] Neutrophils/100 WBC Auto (Bl d)Ordered By: Page Magaña on 10-27-2022 Neutrophils/100 WBC (Bld) 60.8 % . [facility] No Panel InformationOrdered By: Page Magaña on 10-27-2022 Estimated GFR (CKD-EPI) > 60.0 mL/Min [facility] Creatinine Clearance (Chem N/A [facility] Nucleated erythrocytes [Pres ence] in Blood by Automated countOrdered By: Page Magaña on 10-27-2022 Nucleated RBC Auto Ql (Bld) 0.3 /100{WBC} 0-0.5 [facility] Platelet mean volume Auto (B ld) [Entitic vol]Ordered By: Page Magaña on 10-27-2022 Platelet mean volume (Bld) [Entitic vol] 8.9 fL 6.3-10.7 [facility] Platelets Auto (Bld) [#/Vol] Ordered By: Page Magaña on 10-27-2022 Platelets (Bld) [#/Vol] 246 10*3/uL 150-450 [facility] Potassium [Moles/volume] in Serum or PlasmaOrdered By: Page Magaña on 10-27-2022 Potassium [Moles/Vol] 4.3 mmol/L 3.5-5.1 [facility] Protein [Mass/volume] in Ser um or PlasmaOrdered By: Page Magaña on 10-27-2022 Protein [Mass/Vol] 6.5 g/dL 6.4-8.9 [facility] RBC Auto (Bld) [#/Vol]Ordere d By: Page Magaña on 10-27-2022 RBC (Bld) [#/Vol] 4.79 10*6/uL 3.60-5.00 [facility] Rheumatoid Factoron 10-28-19 Rheumatoid Factor <10.0 Normal <14.0 [facility] Comment on above: Result Comment: Perf ormed at: CB - [facility] [place] [id number] [employer]ellite [employer] Engineer: Ismael Suh PhD, Phone: [phone] Performed By: #### H CGQNT #### [facility] [address] [place] [address] Serum or plasma albumin/glob ulin mass ratioOrdered By: Page Magaña on 10-27-2022 Albumin/Globulin [Mass ratio] 1.8 {ratio} [facility] Serum or plasma anion gap de terminationOrdered By: Page Magaña on 10-27-2022 Anion gap [Moles/Vol] 10.6 mmol/L 6.0-15.0 [facility] Serum or plasma high density lipoprotein (HDL) cholesterol measurementOrdered By: Page Magaña on 10-27-2022 Cholesterol in HDL [Mass/Vol] 43 mg/dL 35-85 [facility] Comment on above: HDL CHOL ATP-III CLA SSIFICATION Cardiovascular RiskHDL > or equal to 60 mg/dL LOWHDL < 40 mg/dL HIGH Serum or plasma total choles terol/high density lipoprotein (HDL) cholesterol mass ratOrdered By: Page Magaña on 10-27-2022 Cholesterol.total/Poonam sterol in HDL [Mass ratio] 4.9 {ratio} <5.0 [facility] Sodium [Moles/volume] in Ser um or PlasmaOrdered By: Page Magaña on 10-27-2022 Sodium [Moles/Vol] 138 mmol/L 136-145 [facility] Thyroid Stim Hormone w/Rflxo n 10-27-2022 Thyroid Stim Hormone w/Rflx 0.76 u[iU]/mL Normal 0.45-5.33 [facility] Comment on above: Order Comment: PT IS FASTING Performed By: #### H CGQNT #### [facility] [address] [place] [address] Thyrotropin [Units/volume] i n Serum or PlasmaOrdered By: Page Magaña on 10-27-2022 TSH Qn 0.76 m[IU]/L 0.45-5.33 [facility] Triglyceride [Mass/volume] i n Serum or PlasmaOrdered By: Page Magaña on 10-27-2022 Triglyceride [Mass/Vol] 55 mg/dL 0-[address] [facility] Comment on above: TRIG ATP III CLASSIF ICATIONTRIG less than 150 mg/dL NormalTRIG 150-199 mg/dL Borderline highTRIG 200-500 mg/dL High TRIG greater than 500 mg/dL Very highStandard traceable to the Center for Disease Conrtrol and Prevention (CDC) test method. Urea nitrogen [Mass/volume] in Serum or PlasmaOrdered By: Page Magaña on 10-27-2022 Urea nitrogen [Mass/Vol] 12 mg/dL 7-25 [facility] Vitamin D 25 Hydroxy Totalon 10-27-2022 Vitamin D 25 Hydroxy Total 22.1 ng/mL Low 30-100 [facility] Comment on above: Order Comment: PT IS FASTING Result Comment: HARVINDER MIN D STATUS 25(OH)VITAMIN D RANGE (ng/mL) Deficient <20 Insufficient 20 to <30 Sufficient 30 to 100 Reference: Lino Pena, Gildardo MARTELL, et al. Evaluation,treatment, and prevention of vitamin D deficiency; an Endocrine Society clinical practice guideline. JCEM. 2010; 96(7):191-. PERFORMED BY: [facility] [address] [place] [address] PATHOLOGIST MENTAL HEALTH PROGRAM DIRECTOR JERRY CASTRO M.D. Performed By: #### H CGQNT #### [address] Vitamin D+Metabolites [Mass/ volume] in Serum or PlasmaOrdered By: Page Magaña on 10-27-2022 Vitamin D+Metabolites [Mass/Vol] 22.1 ng/mL 30-100 [facility] Comment on above: VITAMIN D STATUS 25( [place])VITAMIN D RANGE (ng/mL) Deficient <20 Insufficient 20 to <30Sufficient 30 to 100Reference: Lino Pena, Gildardo MARTELL, et al. Evaluation,treatment, and prevention of vitamin D deficiency; an Endocrine Society clinical practice guideline. JCEM. 2010; 96(7):191-. WBC Auto (Bld) [#/Vol]Ordere d By: Page Magaña on 10-27-2022 WBC (Bld) [#/Vol] 9.1 10*3/uL 3.8-11.6 [facility] Vital Signs Date Time Vital Sign Value Performing Clinician Facility 08-16-2023 13:25-0500 Body mass index (BMI) [Ratio] 33.94 kg/m2 [employer] Work Phone: [facility] 08-16-2023 13:25-0500 Body weight 78.83 kg [employer] Work Phone: [facility] 08-16-2023 13:25-0500 Diastolic blood pressure 78 mm[Hg] [employer] Work Phone: [facility] 08-16-2023 13:25-0500 Systolic blood pressure 122 mm[Hg] Edgar Rip DO Work Phone: [facility] 06-28-2023 05:30-0500 Body temperature 98.8 [degF] DO Sallie Magaña Work Phone: [facility] 06-28-2023 05:30-0500 Diastolic blood pressure 79 mm[Hg] DO Sallie Magaña Work Phone: [facility] 06-28-2023 05:30-0500 Heart rate 80 /min DO Sallie Magaña Work Phone: [facility] 06-28-2023 05:30-0500 Respiratory rate 20 /min DO Sallie Magaña Work Phone: [facility] 06-28-2023 05:30-0500 SaO2% (BldA) [Mass fraction] 98 % DO Sallie Magaña Work Phone: [facility] 06-28-2023 05:30-0500 Systolic blood pressure 121 mm[Hg] DO Sallie Magaña Work Phone: [facility] 06-26-2023 20:49-0500 Body height 152.4 cm DO Sallie Magaña Work Phone: [facility] 06-26-2023 20:49-0500 Body weight 74.38 kg DO Sallie Magaña Work Phone: [facility] 01-24-2023 13:44-0400 Diastolic blood pressure 73 mm[Hg] DO Sallie Magaña Work Phone: [facility] 01-24-2023 13:44-0400 Heart rate 104 /min DO Sallie Magaña Work Phone: [facility] 01-24-2023 13:44-0400 Respiratory rate 16 /min DO Sallie Magaña Work Phone: [facility] 01-24-2023 13:44-0400 SaO2% (BldA) [Mass fraction] 98 % DO Sallie Magaña Work Phone: [facility] 01-24-2023 13:44-0400 Systolic blood pressure 117 mm[Hg] DO Sallie Magaña Work Phone: [facility] 01-24-2023 10:11-0400 Body height 152.4 cm DO Sallie Magaña Work Phone: [facility] 01-24-2023 10:11-0400 Body temperature 98.5 [degF] DO Sallie Magaña Work Phone: [facility] 01-24-2023 10:11-0400 Body weight 67.58 kg DO Sallie Magaña Work Phone: [facility] 11-08-2022 15:30-0400 Body height 147.96 cm Hilario Reynolds Other [employer] Other 11-08-2022 15:30-0400 Body mass index (BMI) [Ratio] 34.23 kg/m2 Hilario Reynolds Other [employer] Other 11-08-2022 15:30-0400 Body weight 74.93 kg Hilario Reynolds Other [employer] Other 11-08-2022 15:30-0400 Diastolic blood pressure 90 mm[Hg] Hilario Reynolds Other [employer] Other 11-08-2022 15:30-0400 Respiratory rate 18 /min Hilario Reynolds Other [employer] Other 11-08-2022 15:30-0400 SaO2% (BldA) [Mass fraction] 97 % Hilario Reynolds Other [employer] Other 11-08-2022 15:30-0400 Systolic blood pressure 135 mm[Hg] Hilario Reynolds Other [facility] [employer] Other Encounters Encounter Date Encounter Type Care Provider Facility Start: 09-07-2023 End: 09-07-2023 ambulatory EDGAR RIP Not Available Start: 08-30-2023 End: 08-30-2023 ambulatory EDGAR RIP Not Available Start: 08-16-2023 End: 08-16-2023 ambulatory EDGAR RIP Not Available Start: 08-16-2023 End: 08-16-2023 flow sheet Edgar Rip DO Work Phone: [facility] Comment on above: Third trimester preg alex; Hematuria, unspecified type Start: 08-15-2023 End: 08-15-2023 ambulatory Edgar Rip Facility:[facility] Start: 08-15-2023 End: 08-15-2023 ambulatory DO Sallie Magaña Work Phone: [facility] Work Phone: Start: 08-15-2023 End: 08-15-2023 Patient encounter procedure DO Sallie Aguila Owensmelany Work Phone: [facility] [place] Work Phone: Start: 08-04-2023 Telephone encounter Camila Gallego MD Work Phone: [facility] Start: 08-03-2023 End: 08-03-2023 ambulatory [facility] Start: 08-01-2023 End: 08-01-2023 ambulatory EDGAR RIP Not Available Start: 07-19-2023 End: 07-19-2023 ambulatory EDGAR RIP Not Available Start: 07-04-2023 End: 07-04-2023 ambulatory EDGAR RIP Not Available Start: 06-29-2023 ambulatory Alfredo LANDIN Facility:[facility] [place] Start: 06-27-2023 End: 06-28-2023 ambulatory Alfredo LANDIN Facility:CD:[id number] Start: 06-26-2023 End: 06-28-2023 ambulatory Emerald Martinez Facility:[facility] Start: 06-26-2023 End: 06-28-2023 Evaluation and management of inpatient DO Sallie Aguila Magaña Work Phone: [facility] Work Phone: Start: 06-26-2023 End: 06-28-2023 observation encounter DO Sallie Owensmelany Work Phone: [facility] Work Phone: Start: 06-06-2023 End: 06-06-2023 ambulatory Latrice Olmsteadmike Facility:[facility] Start: 06-06-2023 End: 06-06-2023 Patient encounter procedure DO Sallie Aguila Gracielamelany Work Phone: [facility] [place] Work Phone: Start: 05-29-2023 End: 05-29-2023 ambulatory BRANDON CAMARGO Not Available Start: 05-06-2023 End: 05-06-2023 ambulatory Sallie Magaña Facility:[facility] Start: 05-06-2023 End: 05-06-2023 ambulatory DO Sallie Aguila Magaña Work Phone: [facility] Work Phone: Start: 05-06-2023 End: 05-06-2023 Patient encounter procedure DO Sallie Aguila Magaña Work Phone: [facility] [place] Work Phone: Start: 01-24-2023 End: 01-24-2023 Emergency department patient visit DO Sallie Magaña Work Phone: [facility] Work Phone: Start: 12-20-2022 End: 12-21-2022 ambulatory Sallie Magaña Facility:[facility] Start: 12-20-2022 Registered Recurring DO Sallie Magaña Work Phone: [facility] Work Phone: Start: 11-08-2022 End: 11-08-2022 ambulatory Hilario Reynolds Other [facility] Other Start: 11-08-2022 Nutrition therapy Hilario Hearddiff [facility] Start: 10-27-2022 End: 10-27-2022 ambulatory Sallie Magaña Facility:[facility] Start: 10-27-2022 End: 10-27-2022 ambulatory DO Sallie Magaña Work Phone: [facility] Work Phone: Start: 10-27-2022 End: 10-27-2022 Patient encounter procedure DO Sallie Magaña Work Phone: [facility] [place] Work Phone: Procedures Date Procedure Procedure Detail Performing Clinician Start: 08-16-2023 Urnls dip stick/tabl et rgnt non-auto w/o micrscp Edgar Rip DO Work Phone: Start: 06-26-2023 Ultrasonography of b ilateral kidneys DO Sallie Magaña Work Phone: Start: 03-10-2023 Microscopic observat ion [Identifier] in Cervix by Cyto stain Camila Gallego MD Work Phone: Plan of Treatment Date Care Activity Detail Author Start: 04-18-2028 Screening for malignant neoplasm of cervix [facility] Start: 03-10-2026 Screening for malignant neoplasm of cervix Pap Smear [facility] Start: 06-06-2024 Tobacco Screening Tobacco Screening [facility] Start: 06-05-2024 Adult BMI Screening Adult BMI Screening [facility] Start: 01-02-2024 ambulatory Ambulatory Facility:[facility] Start: 09-20-2023 End: 09-20-2023 Patient encounter procedure 09/20/2023 1:10 PM EDT Routine [facility] [address] [place] [address] [place] [address] Edgar Erwin, DO [address] [place] [address] [facility] Start: 09-13-2023 End: 09-13-2023 Patient encounter procedure 09/13/2023 1:10 PM EST Routine [facility] [address] [facility] [place] [address] Edgar Erwin, DO [address] [place] [address] [place] [address] [facility] Start: 09-11-2023 End: 09-11-2023 Professional / ancillary services management 09/11/2023 8:30 AM EST Ancillary Procedure [facility] [address] [facility] [address] [facility] Start: 09-05-2023 End: 09-05-2023 Patient encounter procedure 09/05/2023 1:20 PM EST Routine [facility] [address] [facility] [place] [address] Edgar Erwin, [address] [place] [address] [facility] Start: 08-30-2023 End: 08-30-2023 Patient encounter procedure 08/30/2023 1:10 PM EST Routine [facility] [address] [facility] [place] [address] Edgar Erwin DO [address] [place] [address] [facility] Start: 08-15-2023 Bacteria identified in Urine by Culture [facility] Start: 06-28-2023 [facility] Start: 06-26-2023 Referral to urologist [facility] Start: 06-26-2023 Hospital admission [facility] Start: 03-10-2023 Influenza vaccination [facility] Start: 01-24-2023 Diagnostic ultrasound of gravid uterus [facility] Start: 01-24-2023 Ultrasonography of bilateral kidneys US renal BI [facility] Start: 01-24-2023 US Kidney - bilateral [facility] Start: 01-24-2023 Transvaginal obstetric ultrasonography [facility] Start: 2011 Screening for malignant neoplasm of cervix Pap Smear [facility] Start: 2009 DTaP,Tdap and Td Vaccines (1 - Tdap) DTaP,Tdap and Td Vaccines (1 - Tdap) [facility] Start: 2008 Adult BMI Follow Up Plan Adult BMI Follow Up Plan [facility] Start: 2002 Depression Screening Depression Screening [facility] Cefuroxime free [Mass/volume] in Serum or Plasma [facility] Patient Education [facility] Work Phone: Patient referral [facility] Work Phone: Rheumatoid factor [Units/volume] in Serum or Plasma [facility] Immunizations Immunization Date Immunization Notes Care Provider Fa [facility] 05-06-2020 influenza virus vaccine, unspecified formulation Camila Gallego MD Work Phone: [facility] Payers Date Payer Category Payer Self-pay [id number] 2016 Unknown [id number] 2016 Unknown [id number] 1990 Unknown [id number] [id number]. 727 1990 Unknown [id number] 2.16.840.1.203844.3.579.2. 1286 1990 Unknown [id number] 2.16.840.1.638867.3.579.2. 1259 1990 Unknown [id number] 2.16.840.1.264402.3.579.2. 1259 1990 Unknown [id number] 2.16.840.1.545908.3.579.2. 1259 1990 Unknown [id number] 2.16.840.1.383437.3.579.2. 1259 1990 Unknown [id number] 2.16.840.1.177167.3.579.2. 1259 1990 Unknown [id number] 2.16.840.1.471841.3.579.2. 1259 1990 Unknown [id number] 2.16.840.1.366591.3.579.2. 1259 Medicaid [place] [employer] [id number] Private Health Insurance [facility] [id number] Unknown [id number] [id number] Unknown [id number] 2.840.1.847417.3.579.2. 531 Unknown [id number] 2.16840.1.425329.3.579.2. 531 Unknown [id number] 2.16840.1.031465.3.579.2. 531 Unknown [id number] 2.840.1.136224.3.579.2. 531 Unknown [id number] 2.16840.1.142957.3.579.2. 531 Unknown [id number] 2.16840.1.046538.3.579.2. 531 Unknown [id number] 2.840.1.531734.3.579.2. 531 Worker's Compensation [employer] [facility] [employer] [id number] Social History Date Type Detail Facility Start: 05-01-2020 End: 03-20-2023 Tobacco smoking status NHIS Never smoked tobacco (finding) [facility] Start: 1990 Sex Assigned At Female [facility] Start: 04-03-2023 End: 06-06-2023 Sex Assigned At [facility] Other Start: 06-06-2023 Alcohol intake Ex-drinker (finding) [facility] Start: 04-03-2023 End: 06-06-2023 History of Social function [facility] Childcare Unknown [facility] Start: 01-08-2023 [facility] Start: 1990 Sex Assigned At Not on file [facility] Start: 08-16-2023 Alcohol intake Lifetime non-d aurelia (finding) [facility] Start: 03-20-2023 Alcohol Comment caffeine: coffee [facility] NEGATED: Highlighted rowStart: NINF History of tobacco use Passive smoker [facility] Goals Date Patient Goal Desired Activity /State Personal health goal Clinical Notes 11-08-2022 to 08-16-2023 Kathleen Geronimo, ILAN - 08/16/2023 1:20 PM ESTTelephone Encounter - Camila Gallego MD - 08/04/2023 1:07 PM ESTTelephone Encounter - Camila Gallego MD - 08/04/2023 1:07 PM EST Note Date & Type Note Facility 08-16-2023 History of Presen t illness Narrative Reason for Appointment: Patient ID: Eylssa Smith is a 33 y.o. female who [...] Diagnosis Date Acute bacterial pharyngitis Allergies Asthma (CMS/HCC) Gallbladder disease Kidney stones Family History Problem [...] nursing note reviewed. Exam conducted with a cartoon artist present. Vitals: Estimated body mass index is [...] Edgar Erwin DO documented in this encounter [facility] 08-04-2023 Miscellaneous Notes Called in left voice message in regards to question about placenta accreta. Sonographic assessment was not consistent with abnormal placentation. No signs of placenta accreta by ultrasound. If you have any further questions please do not hesitate to contact our office. CAMILA GALLEGO MD [facility] Telephone encounter Note Called in left voice message in regards to question about placenta accreta. Sonographic assessment was not consistent with abnormal placentation. No signs of placenta accreta by ultrasound. If you have any further questions please do not hesitate to contact our office. CAMILA GALLEGO MD [facility] Work Phone: 06-27-2023 Consult note Note Date/Time June 27, 2023 2:48pm [place] [address] Urology Consult Note Signed Patient: Elyssa Smith MR#: [id number] : 1990 Acct:[id number] Age/Sex: 33 / F Adm Date: 3 Loc: Room: [address] [place] [address] Type: ADM INOo Attending Dr: Emerald Martinez [...] by Dr. Martinez earlier today [facility] Medical History (Updated 06/27/23 @ 07:15 by [...] % (Auto) 87.1, Lymph % (Auto) 8.3, [place] % (Auto) 4.2, Eos % (Auto)0.2, Baso % (Auto) 0.2, Nucleat RBC Rel Count 0.1, Neut # (Auto) 11.9 H, Lymph #(Auto) 1.1, [place] # (Auto) 0.6, Eos # (Auto) 0.0, Baso # (Auto) 0.0 06/26/23 20:07: Fibronectin Negative 06/26/23 19:20: Urine Opiates Screen Negative, Ur Barbiturates Screen Negative, Ur Phencyclidine Scrn Negative, Ur Amphetamines Screen Negative, U Benzodiazepines Scrn Negative, Urine Cocaine Screen Negative 06/26/23 19:20: Urine Color Yellow, Urine Appearance Clear, Urine pH 6.5, Ur Specific [place] 1.009, Urine Protein Trace H, Urine Glucose [...] <Electronically signed by MD Alfredo Landin> 06/27/23 3399 [facility] Work Phone: 1(269) 949-413512-19-2023 History and physical note Author Emerald Martinez [facility] June 27, 2023 7:16am Note Date/Time June 27, 2023 7:10am [facility] [address] [place] [address] 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 OB [facility] Medical History (Updated 06/27/23 @ 07:15 by [...] 50 mls @ 100 mls/hr IV Q8H [facility] Last Admin: 06/27/23 05:16 Dose: 100 [...] % (Auto) 87.1, Lymph % (Auto) 8.3, [place] % (Auto) 4.2, Eos % (Auto)0.2, Baso % (Auto) 0.2, Nucleat RBC Rel Count 0.1, Neut # (Auto) 11.9 H, Lymph #(Auto) 1.1, [place] # (Auto) 0.6, Eos # (Auto) 0.0, Baso # (Auto) 0.0 06/26/23 20:07: Fibronectin Negative 06/26/23 19:20: Urine Opiates Screen Negative, Ur Barbiturates Screen Negative, Ur Phencyclidine Scrn Negative, Ur Amphetamines Screen Negative, U Benzodiazepines Scrn Negative, Urine Cocaine Screen Negative 06/26/23 19:20: Urine Color Yellow, Urine Appearance Clear, Urine pH 6.5, Ur Specific [place] 1.009, Urine Protein Trace H, Urine Glucose [...] currently. She does see Dr. Erwin in [place] for her care (2) Right kidney stone: Plan: Urology has been consulted- awaiting recommendations (3) Hydronephrosis, right: Plan: Urology has been consulted-awaiting recommendations Documented By: Emerald Martinez DO 06/27/23 07 06 Signed By: <Electronically signed by Emerald Martinez, > 06/27/23 0716 [facility] Work Phone: 1(323) 217-267205-02-2023 Evaluation note* Encounter Date Diagnosis Assessment Notes Treatment Notes Treatment Clinical Notes November, Abnormal weight gain (ICD-10 - R63.5) November, Mixed hyperlipidemia (ICD-10 - E78.2) November, Anxiety (ICD-10 - F41.9) November, Asthma (ICD-10 - J45.909) November, Kidney stones (ICD-1 0 - N20.0) [facility] Other evaluation noteNo assessment information available [facility] Work Phone: evaluation note* Diagnosis Onset Date Resolution Status 26 weeks gestation of acute Hydronephrosis, right acute Right kidney stone acute [facility] Work Phone: evaluation note* Diagnosis Onset Date Resolution Status 26 weeks gestation of acute Hydronephrosis, right acute Right kidney stone resolved [facility] Work Phone: Evaluation note* Diagnosis Third trimester state, incidental Hematuria, unspecified type documented in this encounter [facility] - Reported* Type Description Date Medical History asthma Surgical History C section x 2 Surgical History kidney stones Surgical History IUD removed Hospitalization History see surgical hx [facility] Other Hospital Discharge instructions Additional Instructions Follow-up with your primary care doctor and OB-[employer] SUPERVISOR [facility] if you develop worsening [facility] Discharge instructions Additional Instructions Follow up with [facility] 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 Progress Note Signed Patient: Elyssa Smith MR#: [id number] : 1990 Acct:[id number] Age/Sex: 33 / F Adm Date: 3 Loc: Room: [address] [place] [address] Type: ADM INOo Attending Dr: Emerald Martinez [...] signed by MD KIKI BEAL> 06/28/23 0804 [facility] Work Phone: Chief Complaint and Reason [...] Status Dates Sallie Magaña , Primary Care Provider, Attending Provider Active Team Status: Active Member Role Status Dates Sallie Magaña , Primary Care Provider Active Hilario Reynolds MD [...] 2023 Edgar Erwin Attending Provider Active Start: [facility] 2023 End: August 15, 2023 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 Start Date End Date Jonah Magaña DO [address] [place] [address] PCP - Medical [place] [employer] 12/08/22 Jonah Magaña DO [address] [place] [address] PCP - General Family Medicine 11/15/22 Goals [...] and content) DATE CREATED AUTHOR 07/15/2023 [facility] DATE CREATED AUTHOR AUTHOR'S ORGANIZ ATION 08/06/2023 [facility] DATE CREATED AUTHOR AUTHOR'S ORGANIZ ATION 08/18/2023 [facility] DATE CREATED AUTHOR AUTHOR'S ORGANIZ ATION 09/09/2023 [facility] EPIC FOR RECORDS PERTAINING TO PATIENTS WHO ARE [...] BE BASED ON THE PRIMARY CLINICAL RECORDS. [facility], [facility]. provides no warranty or guarantee of the accuracy or completeness of information in this document.
== END 2023-09-11 08:25 | disposition home or self-care (01) ==
LOC: NOMS 08:25
PROVIDERS: Visit Provider Obstetrics & Gynecology
DX: O26.849 Uterine size-date discrepancy, unspecified trimester (principal); Z3A.37 37 weeks gestation of pregnancy
CPT/HCPCS: 76816

== ENCOUNTER 2023-09-12 05:41 | Inpatient (IN) | payer OTHER, SELFPAY ==
[2023-09-12] VITALS (33 sets, daily range): BP systolic 95–137; BP diastolic 50–101; PULSE 88–127; RESP 4–27; TEMP 36.4–37.6; O2SAT 95–98
--- OUTSIDE RECORDS SUMMARY | 2023-09-12 05:46 | XMS_ITS | CCD ---
Author Name Unknown Address [address] [place] [address] Organization [facility] Care Team Providers Care [place] Hand Name Role Phone DO Sallie Magaña Primary Care Provider [phone] DO Sallie Magaña Attending Provider Hilario Reynolds Unavailable DO Sallie Magaña Primary Care Provider [phone] MD Hilario Reynolds Attending Provider DO Sarmad Luque Emergency Provider DO Sallie Magaña Primary Care Provider DO Sallie Magaña Attending Provider DO Sallie Magaña Primary Care Provider DO Sallie Magaña Attending Provider MD Latrice Sepulveda Attending Provider DO Emerald Martinez Admit Provider DO Emerald Martinez Attending Provider Alfredo LANDIN Attending Unavailable Alfredo LANDIN Referring Unavailable Alfredo LANDIN Attending Unavailable Unavailable Primary Care Provider Unavailchichi e CAMILA GALLEGO Referring Unavailable DO Sallie Magaña Primary Care [...] 6 Other (See Comments), Hives, Other, Unknown [facility] (9 sources) Fish Oils; Translations: [fish oil] Drug Allergy 0 Hives, [facility] (7 sources) Gluten; Translations: [gluten] Propensity to adverse reactions 0 Nausea [facility] (1 source) DHA Propensity to adverse reactions Unknown [employer] Other (2 sources) Pnv 970-Mayxy-Hwwmf -3-Fish Oil; Translations: [PNV 580-CMBNJ-JGGTI -3-FISH OIL] Propensity to adverse reactions to drug 6 [facility] (2 sources) Pollen Allergy to substance 3 Unknown [facility] (2 sources) Other Propensity to adverse reactions 6 [facility] Medications Current Medications Medication [...] UA Negative Negative - 4(70) +++ mg/dL [facility] Blood, UA Positive Negative - 50 Johnny/mcL [facility] Clarity, UA Cloudy [facility] Color, UA Yellow [facility] Glucose, UA Negative Negative - 1999(110) ++++ mg/dL [facility] Interpretation and review of laboratory results Abnormal [facility] Ketones, UA Negative Negative - 160(16) ++++ mg/dL [facility] Leukocytes, UA Negative Negative - 500+++ Mireya/mcL [facility] Nitrite, UA Negative Negative - Positive [facility] pH, UA 7.0 5 - 9 [facility] Protein, UA Negative Negative - 1999(20) ++++ mg/dL [facility] Spec Grav, UA 1.020 1 - 1.03 [facility] Urobilinogen, UA 0.2 0.2 - 12 mg/dL [facility] Urine Cultureon 08-15-2023 Bacteria identified Cx Nom (U) ORGANISM: Chelsi albicans (O:CANALB) [place] Count 30,000 PERFORMED BY: [place] [address] PATHOLOGIST PIN STICKER JERRY CASTRO M.D. [facility] Comment on above: Performed By: #### U HCG, ADDONUAPLUS #### [address] Lab Reportson 07-14-2023 Lab Reports [id number]#1 .00TIFF Normal [facility] Insurance Correspondence Off iceon 06-30-2023 Insurance Correspondence Office [id number]# 1.00TIFF Normal [facility] Lab Reportson 06-30-2023 Lab Reports [id number]# 1.00TIFF Normal [facility] RAD - Ultrasound Reporton RAD - Ultrasound Report [id number]#1 .00TIFF Normal [facility] Lab Reportson 06-29-2023 Lab Reports [id number]#1 .00TIFF Normal [facility] Consultation Noteon 06-28-20 Consultation Note [id number]#1 .00TIFF Normal [facility] Complete Blood Count Auto Di ffon 06-27-2023 Basophils (Bld) [#/Vol] 0.0 10*3/uL Normal 0.0-0.2 [facility] Comment on above: Result Comment: PERF ORMED BY: [place] [address] PATHOLOGIST PIN STICKER JERRY CASTRO M.D. Performed By: #### U HCG, ADDONUAPLUS #### [facility] [address] [place] [address] [place] Basophils/100 WBC (Bld) 0.2 % Normal . [facility] Comment on above: Performed By: #### U HCG, ADDONUAPLUS #### [facility] [address] [place] [address] [place] Eosinophils (Bld) [#/Vol] 0.0 10*3/uL Normal 0.0-0.45 [facility] Comment on above: Performed By: #### U HCG, ADDONUAPLUS #### [facility] [address] [place] [address] [place] Eosinophils/100 WBC (Bld) 0.2 % Normal . [facility] Comment on above: Performed By: #### U HCG, ADDONUAPLUS #### [facility] [address] [place] [address] Erythrocyte distribution width (RBC) [Ratio] 13.4 % Normal 11.9-15.3 [facility] Comment on above: Performed By: #### U HCG, ADDONUAPLUS #### [facility] [address] Hematocrit (Bld) [Volume fraction] 33.5 % Low 34.0-46.4 [facility] Comment on above: Performed By: #### U HCG, ADDONUAPLUS #### [facility] [address] Hemoglobin (Bld) [Mass/Vol] 11.3 g/dL Low 11.8-15.4 [facility] Comment on above: Performed By: #### U HCG, ADDONUAPLUS #### [address] Lymphocytes (Bld) [#/Vol] 1.1 10*3/uL Normal 1.00-4.8 [facility] Comment on above: Performed By: #### U HCG, ADDONUAPLUS #### [address] Lymphocytes/100 WBC (Bld) 8.3 % Normal . [facility] Comment on above: Performed By: #### U HCG, ADDONUAPLUS #### [address] MCH (RBC) [Entitic mass] 29.0 pg Normal 24.7-34.3 [facility] Comment on above: Performed By: #### U HCG, ADDONUAPLUS #### [address] MCV (RBC) [Entitic vol] 86.2 fL Normal 80-100 F [facility] Comment on above: Performed By: #### U HCG, ADDONUAPLUS #### [address] Mean Corpuscular HGB Conc 33.7 g/dL Normal 32.0-35.0 [facility] Comment on above: Performed By: #### U HCG, ADDONUAPLUS #### [address] Monocytes (Bld) [#/Vol] 0.6 10*3/uL Normal 0.0-0.8 [facility] Comment on above: Performed By: #### U HCG, ADDONUAPLUS #### [facility] [address] Monocytes/100 WBC (Bld) 4.2 % Normal . [facility] Comment on above: Performed By: #### U HCG, ADDONUAPLUS #### [facility] [address] [place] [address] Neutrophils (Bld) [#/Vol] 11.9 10*3/uL High 1.8-7.7 [facility] Comment on above: Performed By: #### U HCG, ADDONUAPLUS #### [facility] [address] [place] [address] Neutrophils/100 WBC (Bld) 87.1 % Normal . [facility] Comment on above: Performed By: #### U HCG, ADDONUAPLUS #### [facility] [address] [place] [address] NRBC% 0.1 /100{WBC} Normal 0-0.5 [facility] Comment on above: Performed By: #### U HCG, ADDONUAPLUS #### [address] Platelet mean volume (Bld) [Entitic vol] 9.8 fL Normal 6.3-10.7 [facility] Comment on above: Performed By: #### U HCG, ADDONUAPLUS #### [facility] [address] [place] [address] Platelets (Bld) [#/Vol] 174 10*3/uL Normal 150-450 [facility] Comment on above: Performed By: #### U HCG, ADDONUAPLUS #### [facility] [address] [place] [address] RBC (Bld) [#/Vol] 3.89 10*6/uL Normal 3.60-5.00 [facility] Comment on above: Performed By: #### U HCG, ADDONUAPLUS #### [address] [place] [address] [place] WBC (Bld) [#/Vol] 13.6 10*3/uL High 3.8-11.6 [facility] Comment on above: Performed By: #### U HCG, ADDONUAPLUS #### [facility] [address] [place] [address] Comprehensive Metabolic Pane mauricio 06-27-2023 Albumin [Mass/Vol] 3.4 g/dL Low 3.5-5.7 [facility] Comment on above: Performed By: #### U HCG, ADDONUAPLUS #### [facility] [address] [place] [address] Albumin/Globulin [Mass ratio] 1.6 {ratio} Normal [facility] Comment on above: Performed By: #### U HCG, ADDONUAPLUS #### [address] ALP [Catalytic activity/Vol] 88 U/L Normal 34-104 [facility] Comment on above: Performed By: #### U HCG, ADDONUAPLUS #### [facility] [address] [place] [address] ALT [Catalytic activity/Vol] 17 U/L Normal 7-52 [facility] Comment on above: Performed By: #### U HCG, ADDONUAPLUS #### [address] Anion gap [Moles/Vol] 12.5 mmol/L Normal 6.0-15.0 [facility] Comment on above: Performed By: #### U HCG, ADDONUAPLUS #### [facility] [address] [place] [address] AST [Catalytic activity/Vol] 14 U/L Normal 13-39 [facility] Comment on above: Performed By: #### U HCG, ADDONUAPLUS #### [facility] [address] [place] [address] Bilirubin [Mass/Vol] 0.3 mg/dL Normal 0.3-1.0 [facility] Comment on above: Performed By: #### U HCG, ADDONUAPLUS #### [facility] [address] Calcium [Mass/Vol] 8.2 mg/dL Low 8.6-10.3 [facility] Comment on above: Performed By: #### U HCG, ADDONUAPLUS #### [facility] [address] [place] [address] [place] Chloride [Moles/Vol] 105 mmol/L Normal 98-107 [facility] Comment on above: Performed By: #### U HCG, ADDONUAPLUS #### [facility] [address] CO2 [Moles/Vol] 23.8 mmol/L Normal 21.0-31.0 [facility] Comment on above: Performed By: #### U HCG, ADDONUAPLUS #### [facility] [address] Creatinine [Mass/Vol] 0.52 mg/dL Low 0.60-1.20 [facility] Comment on above: Performed By: #### U HCG, ADDONUAPLUS #### [facility] [address] [place] [address] [place] Creatinine Clr Calc Pharmacy 138.60 [facility] Comment on above: Result Comment: PERF ORMED BY: [place] [address] PATHOLOGIST PIN STICKER JERRY CASTRO M.D. Performed By: #### U HCG, ADDONUAPLUS #### [facility] [address] [place] [address] [place] GFR/1.73 sq M.predicted MDRD (S/P/Bld) [Vol rate/Area] mL/min/{1.73_m2} [facility] Comment on above: Performed By: #### U HCG, ADDONUAPLUS #### [facility] [address] [place] [address] [place] Globulin (S) [Mass/Vol] 2.1 g/dL Normal [facility] Comment on above: Performed By: #### U HCG, ADDONUAPLUS #### [facility] [address] Glucose [Mass/Vol] 124 mg/dL High 70-100 [facility] Comment on above: Result Comment: [facility] Glucose Reference Range is dependent on time and content of last meal. Glucose of more than 200 mg/dL in a nonstressed, ambulatory subject supports the diagnosis of Diabetes Mellitus. ADA recommended reference range Performed By: #### U HCG, ADDONUAPLUS #### [facility] [address] Potassium [Moles/Vol] 3.3 mmol/L Low 3.5-5.1 [facility] Comment on above: Performed By: #### U HCG, ADDONUAPLUS #### [facility] [address] [place] [address] Protein [Mass/Vol] 5.5 g/dL Low 6.4-8.9 [facility] Comment on above: Performed By: #### U HCG, ADDONUAPLUS #### [facility] [address] [place] [address] Sodium [Moles/Vol] 138 mmol/L Normal 136-145 [facility] Comment on above: Performed By: #### U HCG, ADDONUAPLUS #### [address] Urea nitrogen [Mass/Vol] 6 mg/dL Low 7-25 [facility] Comment on above: Performed By: #### U HCG, ADDONUAPLUS #### [facility] [address] [place] [address] US renal BIon 06-27-2023 US renal BI [facility] [place] [address] [place] [address] Ultrasound Report Signed Patient: Elyssa Smith MR#: [id number] : 1990 Acct:[id number] Age/Sex: 33 / F ADM Date: 06/27/23 Loc: Room: [address] [place] [address] Type: ADM INOo Attending Dr: Emerald Martinez [...] Kathleen Vaca M.D.06/27/2023 7:44 AM Dictation Location: [place] [address] Tech: Eryn Welsh Transcribed By: SILVINA 06/27/23 0744 Dictated By: Kathleen Vaca MD 06/27/23 0742 Signed By: 06/27/23 0744 Normal [facility] Alanine aminotransferase [En zymatic activity/volume] in Serum or PlasmaOrdered By: Emerald Martinez on 06-26-2023 ALT [Catalytic activity/Vol] 17 U/L 7-52 [facility] Albumin [Mass/volume] in Ser um or Plasma by Bromocresol green (BCG) dye binding methoOrdered By: Emerald Martinez on 06-26-2023 Albumin BCG dye [Mass/Vol] 3.4 g/dL 3.5-5.7 [facility] Alkaline phosphatase [Enzyma tic activity/volume] in Serum or PlasmaOrdered By: Emerald Martinez on 06-26-2023 ALP [Catalytic activity/Vol] 88 U/L 34-104 [facility] Amphetamine Screen Ql (U)Ord ered By: Emerald Martinez on 06-26-2023 Amphetamines Ql (U) Negative Negative [facility] Aspartate aminotransferase [ Enzymatic activity/volume] in Serum or PlasmaOrdered By: Emerald Martinez on 06-26-2023 AST [Catalytic activity/Vol] 14 U/L 13-39 [facility] Automated epithelial cells c ount in urine sediment (number/area)Ordered By: Emerald Martinez on 06-26-2023 Epithelial cells Auto (Urine sed) [#/Area] 10-19 [HPF] 0-2 [facility] Automated erythrocytes count in urine sediment (number/area)Ordered By: Emerald Martinez on 06-26-2023 RBC Auto (Urine sed) [#/Area] 10-19 [HPF] 0-4 [facility] Automated leukocytes count i n urine sediment (number/area)Ordered By: Emerald Martinez on 06-26-2023 WBC Auto (Urine sed) [#/Area] 0-1 [HPF] 0-4 [facility] Automated urine hyaline cast s count (number/volume)Ordered By: Emerald Martinez on 06-26-2023 Hyaline casts Auto (U) [#/Vol] None seen [LPF] 0-1 [facility] Barbiturates [Presence] in U rine by Screen methodOrdered By: Emerald Martinez on 06-26-2023 Barbiturates Screen Ql (U) Negative Negative [facility] Basophils Auto (Bld) [#/Vol] Ordered By: Emerald Martinez on 06-26-2023 Basophils (Bld) [#/Vol] 0.0 10*3/uL 0.0-0.2 [facility] Basophils/100 WBC Auto (Bld) Ordered By: Emerald Martinez on 06-26-2023 Basophils/100 WBC (Bld) 0.2 % . [facility] Benzodiazepines Screen Ql (U )Ordered By: Emerald Martinez on 06-26-2023 Benzodiazepines Ql (U) Negative Negative [facility] Benzoylecgonine [Presence] i n Urine by Screen methodOrdered By: Emerald Martinez on 06-26-2023 Benzoylecgonine Screen Ql (U) Negative Negative [facility] Bilirubin Test strip Ql (U)O rdered By: Emerald Martinez on 06-26-2023 Bilirubin Ql (U) Negative Negative [facility] Bilirubin.total [Mass/volume ] in Serum or PlasmaOrdered By: Emerald Martinez on 06-26-2023 Bilirubin [Mass/Vol] 0.3 mg/dL 0.3-1.0 [facility] Calcium [Mass/volume] in Ser um or PlasmaOrdered By: Emerald Martinez on 06-26-2023 Calcium [Mass/Vol] 8.2 mg/dL 8.6-10.3 [facility] Carbon dioxide, total [Moles /volume] in Serum or PlasmaOrdered By: Emerald Martinez on 06-26-2023 CO2 [Moles/Vol] 23.8 mmol/L 21.0-31.0 [facility] Chloride [Moles/volume] in S gris or PlasmaOrdered By: Emerald Martinez on 06-26-2023 Chloride [Moles/Vol] 105 mmol/L 98-107 [facility] Color Auto (U)Ordered By: Graciela Martinez on 06-26-2023 Color (U) Yellow Yellow [facility] Creatinine [Mass/volume] in Serum or PlasmaOrdered By: Emerald Martinez on 06-26-2023 Creatinine [Mass/Vol] 0.52 mg/dL 0.60-1.20 [facility] Dipstick and Microscopicon 1 08-27-2022 Appearance (U) Clear Normal Clear [facility] Comment on above: Order Comment: Name Collection Type:: Clean-Voided Midstream Performed By: #### U HCG, ADDONUAPLUS #### [facility] [address] [place] [address] [place] Bacteria,Urine Rare High None Seen [facility] Comment on above: Order Comment: Name Collection Type:: Clean-Voided Midstream Performed By: #### U HCG, ADDONUAPLUS #### [facility] [address] [place] [id number] [place] Bilirubin,Urine Negative Normal Negative [facility] Comment on above: Order Comment: Name Collection Type:: Clean-Voided Midstream Performed By: #### U HCG, ADDONUAPLUS #### [facility] [address] [place] [id number] [place] Color (U) Yellow Normal Yellow [facility] Comment on above: Order Comment: Name Collection Type:: Clean-Voided Midstream Performed By: #### U HCG, ADDONUAPLUS #### [facility] [address] [place] [address] Glucose Ql (U) Normal Normal Normal [facility] Comment on above: Order Comment: Name Collection Type:: Clean-Voided Midstream Performed By: #### U HCG, ADDONUAPLUS #### [facility] [address] [place] [address] [place] Hyaline Casts,Urine None Seen Normal 0-1 [facility] Comment on above: Order Comment: Name Collection Type:: Clean-Voided Midstream Performed By: #### U HCG, ADDONUAPLUS #### [address] Ketones Ql (U) Negative Normal Negative [facility] Comment on above: Order Comment: Name Collection Type:: Clean-Voided Midstream Performed By: #### U HCG, ADDONUAPLUS #### [facility] [address] [place] [address] Leukocyte esterase Test strip Ql (U) Negative Normal Negative [facility] Comment on above: Order Comment: Name Collection Type:: Clean-Voided Midstream Performed By: #### U HCG, ADDONUAPLUS #### [facility] [address] [place] [address] [place] Nitrite,Urine Negative Normal Negative [facility] Comment on above: Order Comment: Name Collection Type:: Clean-Voided Midstream Performed By: #### U HCG, ADDONUAPLUS #### [facility] [address] [place] [address] [place] Occult Blood,Urine 3+ High Negative [facility] Comment on above: Order Comment: Name Collection Type:: Clean-Voided Midstream Result Comment: PERF ORMED BY: [place] [address] PATHOLOGIST PIN STICKER JERRY CASTRO M.D. Performed By: #### U HCG, ADDONUAPLUS #### [facility] [address] [place] [address] [place] pH (U) 6.5 [pH] Normal 5.0-9.0 [facility] Comment on above: Order Comment: Name Collection Type:: Clean-Voided Midstream Performed By: #### U HCG, ADDONUAPLUS #### [address] Protein,Urine Trace High Negative [facility] Comment on above: Order Comment: Name Collection Type:: Clean-Voided Midstream Performed By: #### U HCG, ADDONUAPLUS #### [address] RBC,Urine 10-19 High 0-4 [facility] Comment on above: Order Comment: Name Collection Type:: Clean-Voided Midstream Performed By: #### U HCG, ADDONUAPLUS #### [address] Specificy [place],Urine 1.009 Normal 1.001-1.030 [facility] Comment on above: Order Comment: Name Collection Type:: Clean-Voided Midstream Performed By: #### U HCG, ADDONUAPLUS #### [address] Squamous Epithelial Cell,Urine 10-19 High 0-2 [facility] Comment on above: Order Comment: Name Collection Type:: Clean-Voided Midstream Performed By: #### U HCG, ADDONUAPLUS #### [address] Urobilinogen,Urine Normal Normal Normal [facility] Comment on above: Order Comment: Name Collection Type:: Clean-Voided Midstream Performed By: #### U HCG, ADDONUAPLUS #### [address] WBC LM.HPF (Urine sed) [#/Area] 0 /[HPF] Normal 0-4 [facility] Comment on above: Order Comment: Name Collection Type:: Clean-Voided Midstream Performed By: #### U HCG, ADDONUAPLUS #### [address] Yeast,Urine Rare Critically abnormal None Seen [facility] Comment on above: Order Comment: Name Collection Type:: Clean-Voided Midstream Result Comment: PERF ORMED BY: [place] [address] PATHOLOGIST PIN STICKER JERRY CASTRO M.D. Performed By: #### U HCG, ADDONUAPLUS #### [facility] [address] [place] [address] Eosinophils Auto (Bld) [#/Vo l]Ordered By: Emerald Martinez on 06-26-2023 Eosinophils (Bld) [#/Vol] 0.0 10*3/uL 0.0-0.45 [facility] Eosinophils/100 WBC Auto (Bl d)Ordered By: Emerald Martinez on 06-26-2023 Eosinophils/100 WBC (Bld) 0.2 % . [facility] Erythrocyte distribution wid th Auto (RBC) [Ratio]Ordered By: Emerald Martinez on 06-26-2023 Erythrocyte distribution width (RBC) [Ratio] 13.4 % 11.9-15.3 [facility] Fibronectinon 06-26-20 Fibronectin Negative Normal Negative [facility] Comment on above: Order Comment: Name Collection Type:: Clean-Voided Midstream Result Comment: PERF ORMED BY: [place] [address] PATHOLOGIST PIN STICKER JERRY CASTRO M.D. Performed By: #### U HCG, ADDONUAPLUS #### [facility] [address] [place] [address] fibronectinOrdered By: Emerald Martinez on 06-26-2023 Fibronectin. (Vag fld) [Mass/Vol] Negative Negative [facility] Globulin Calc (S) [Mass/Vol] Ordered By: Emerald Martinez on 06-26-2023 Globulin (S) [Mass/Vol] 2.1 g/dL [facility] Glucose [Mass/volume] in Ser um or PlasmaOrdered By: Emerald Martinez on 06-26-2023 Glucose [Mass/Vol] 124 mg/dL 70-100 [facility] Comment on above: ADA recommended refe rence rangeRandom Glucose Reference Range is dependent on time and content of last meal. Glucose of more than 200 mg/dL in a nonstressed, ambulatory subject supports the diagnosis of Diabetes Mellitus. Hematocrit Auto (Bld) [Volum e fraction]Ordered By: Emerald Martinez on 06-26-2023 Hematocrit (Bld) [Volume fraction] 33.5 % 34.0-46.4 [facility] Hemoglobin [Mass/volume] in BloodOrdered By: Emerald Martinez on 06-26-2023 Hemoglobin (Bld) [Mass/Vol] 11.3 g/dL 11.8-15.4 [facility] Ketones Auto test strip (U) [Mass/Vol]Ordered By: Emerald Martinez on 06-26-2023 Ketones (U) [Mass/Vol] Negative Negative [facility] Leukocytes [#/volume] correc mague for nucleated erythrocytes in Blood by Automated counOrdered By: Emerald Martinez on 06-26-2023 WBC corrected for nucl RBC Auto (Bld) [#/Vol] 13.6 10*3/uL 3.8-11.6 [facility] Lymphocytes Auto (Bld) [#/Vo l]Ordered By: Emerald Martinez on 06-26-2023 Lymphocytes (Bld) [#/Vol] 1.1 10*3/uL 1.00-4.8 [facility] Lymphocytes/100 WBC Auto (Bl d)Ordered By: Emerald Martinez on 06-26-2023 Lymphocytes/100 WBC (Bld) 8.3 % . [facility] MCH Auto (RBC) [Entitic mass ]Ordered By: Emerald Martinez on 06-26-2023 MCH (RBC) [Entitic mass] 29.0 pg 24.7-34.3 [facility] MCHC Auto (RBC) [Mass/Vol]Or dered By: Emerald Martinez on 06-26-2023 MCHC (RBC) [Mass/Vol] 33.7 g/dL 32.0-35.0 [facility] MCV Auto (RBC) [Entitic vol] Ordered By: Emerald Martinez on 06-26-2023 MCV (RBC) [Entitic vol] 86.2 fL 80-100 F [facility] Monocytes Auto (Bld) [#/Vol] Ordered By: Emerald Martinez on 06-26-2023 Monocytes (Bld) [#/Vol] 0.6 10*3/uL 0.0-0.8 [facility] Monocytes/100 WBC Auto (Bld) Ordered By: Emerald Martinez on 06-26-2023 Monocytes/100 WBC (Bld) 4.2 % . F [facility] Neutrophils Auto (Bld) [#/Vo l]Ordered By: Emerald Martinez on 06-26-2023 Neutrophils (Bld) [#/Vol] 11.9 10*3/uL 1.8-7.7 [facility] Neutrophils/100 WBC Auto (Bl d)Ordered By: Emerald Martinez on 06-26-2023 Neutrophils/100 WBC (Bld) 87.1 % . [facility] Nitrite Test strip Ql (U)Ord ered By: Emerald Martinez on 06-26-2023 Nitrite Ql (U) Negative Negative [facility] No Panel InformationOrdered By: Emerald Martinez on 06-26-2023 Estimated GFR (CKD-EPI) > 60.0 mL/Min [facility]acy Creatinine Clearance (Chem 138.60 [facility] Nucleated erythrocytes [Pres ence] in Blood by Automated countOrdered By: Emerald Martinez on 06-26-2023 Nucleated RBC Auto Ql (Bld) 0.1 /100{WBC} 0-0.5 [facility] OB Urine Drug Screen (NO THC )on 06-26-2023 Amphetamine Screen,Urine Negative Normal Negative [facility] Comment on above: Performed By: #### U HCG, ADDONUAPLUS #### [facility] [address] Barbiturate Screen,Urine Negative Normal Negative [facility] Comment on above: Performed By: #### U HCG, ADDONUAPLUS #### [facility] [address] Benzodiazepines Screen,Urine Negative Normal Negative [facility] Comment on above: Performed By: #### U HCG, ADDONUAPLUS #### [facility] [address] [place] [address] Cocaine Screen,Urine Negative Normal Negative [facility] Comment on above: Performed By: #### U HCG, ADDONUAPLUS #### [facility] [address] Opiate Screen,Urine Negative Normal Negative [facility] Comment on above: Performed By: #### U HCG, ADDONUAPLUS #### [facility] [address] [place] [address] Phencyclidine Screen, Urine Negative Normal Negative [facility] Comment on above: Result Comment: Thes e are unconfirmed results and should not be used for legal purposes. Drug Cut-Off Concentration: AMPH 1000 ng/mL DORIS 200 ng/mL LEANNE 200 ng/mL COCM 300 ng/mL OP 300 ng/mL PCP 25 ng/mL PERFORMED BY: [place] [address] PATHOLOGIST PIN STICKER JERRY CASTRO M.D. Performed By: #### U HCG, ADDONUAPLUS #### [address] Opiates [Presence] in Urine by Screen methodOrdered By: Emerald Martinez on 06-26-2023 Opiates Screen Ql (U) Negative Negative [facility] Phencyclidine Screen Ql (U)O rdered By: Emerald Martinez on 06-26-2023 Phencyclidine Ql (U) Negative Negative [facility] Comment on above: These are unconfirme d results and should not be used for legal purposes. Drug Cut-Off Concentration: AMPH 1000 ng/mL DORIS 200 ng/mL LEANNE 200 ng/mL COCM 300 ng/mL OP 300 ng/mL PCP 25 ng/mL Platelet mean volume Auto (B ld) [Entitic vol]Ordered By: Emerald Martinez on 06-26-2023 Platelet mean volume (Bld) [Entitic vol] 9.8 fL 6.3-10.7 [facility] Platelets Auto (Bld) [#/Vol] Ordered By: Emerald Martinez on 06-26-2023 Platelets (Bld) [#/Vol] 174 10*3/uL 150-450 [facility] Potassium [Moles/volume] in Serum or PlasmaOrdered By: Emerald Martinez on 06-26-2023 Potassium [Moles/Vol] 3.3 mmol/L 3.5-5.1 [facility] Protein Auto test strip (U) [Mass/Vol]Ordered By: Emerald Martinez on 06-26-2023 Protein (U) [Mass/Vol] Trace mg/dL Negative [facility] Protein [Mass/volume] in Ser um or PlasmaOrdered By: Emerald Martinez on 06-26-2023 Protein [Mass/Vol] 5.5 g/dL 6.4-8.9 [facility] RBC Auto (Bld) [#/Vol]Ordere d By: Emerald Martinez on 06-26-2023 RBC (Bld) [#/Vol] 3.89 10*6/uL 3.60-5.00 [facility] Serum or plasma albumin/glob ulin mass ratioOrdered By: Emerald Martinez on 06-26-2023 Albumin/Globulin [Mass ratio] 1.6 {ratio} [facility] Serum or plasma anion gap de terminationOrdered By: Emerald Martinez on 06-26-2023 Anion gap [Moles/Vol] 12.5 mmol/L 6.0-15.0 [facility] Sodium [Moles/volume] in Ser um or PlasmaOrdered By: Emerald Martinez on 06-26-2023 Sodium [Moles/Vol] 138 mmol/L 136-145 [facility] Specific gravity Auto test s trip (U) [Rel density]Ordered By: Emerald Martinez on 06-26-2023 Specific gravity (U) [Rel density] 1.009 1.001-1.030 [facility] Urea nitrogen [Mass/volume] in Serum or PlasmaOrdered By: Emerald Martinez on 06-26-2023 Urea nitrogen [Mass/Vol] 6 mg/dL 7-25 [facility] Urine bacteria detection by automated methodOrdered By: Emerald Martinez on 06-26-2023 Bacteria Auto Ql (U) Rare None Seen [facility] Urine clarity by refractomet ry automatedOrdered By: Emerald Martinez on 06-26-2023 Clarity Refractometry automated (U) Clear Clear [facility] Urine glucose measurement by automated test strip (mass/volume)Ordered By: Emerald Martinez on 06-26-2023 Glucose Auto test strip (U) [Mass/Vol] Normal mg/dL Normal [facility] Urine hemoglobin detection b y automated test stripOrdered By: Emerald Martinez on 06-26-2023 Hemoglobin Auto test strip Ql (U) 3+ Negative [facility] Urine leukocyte esterase det ection by automated test stripOrdered By: Emerald Martinez on 06-26-2023 Leukocyte esterase Auto test strip Ql (U) Negative Negative [facility] Urobilinogen Auto test strip (U) [Mass/Vol]Ordered By: Emerald Martinez on 06-26-2023 Urobilinogen (U) [Mass/Vol] Normal mg/dL Normal [facility] WBC Auto (Bld) [#/Vol]Ordere d By: Emerald Martinez on 06-26-2023 WBC (Bld) [#/Vol] 13.6 10*3/uL 3.8-11.6 [facility] Yeast detection in urine sed iment by light microscopyOrdered By: Emerald Martinez on 06-26-2023 Yeast LM Ql (Urine sed) Rare [HPF] None Seen F [facility] pH Auto test strip (U)Ordere d By: Emerald Martinez on 06-26-2023 pH (U) 6.5 [pH] 5.0-9.0 [facility] 1,25 Dihydroxy Vit D Calcitr olon 06-06-2023 1,25 Dihydroxy Vit D Calcitrol 123.0 pg/mL High 24.8-81.5 [facility] Comment on above: Result Comment: Perf ormed at: [facility] - [facility] [address] [id number] [employer]: Dinora Alvarenga MD, Phone: [phone] PERFORMED BY: [place] [address] PATHOLOGIST PIN STICKER JERRY CASTRO M.D. Performed By: #### H CGQNT #### [address] Alanine aminotransferase [En zymatic activity/volume] in Serum or PlasmaOrdered By: Latrice Sepulveda on 06-06-2023 ALT [Catalytic activity/Vol] 19 U/L 7-52 [facility] Albumin [Mass/volume] in Ser um or Plasma by Bromocresol green (BCG) dye binding methoOrdered By: Latrice Sepulveda on 06-06-2023 Albumin BCG dye [Mass/Vol] 3.5 g/dL 3.5-5.7 [facility] Alkaline phosphatase [Enzyma tic activity/volume] in Serum or PlasmaOrdered By: Latrice Sepulveda on 06-06-2023 ALP [Catalytic activity/Vol] 84 U/L 34-104 [facility] Aspartate aminotransferase [ Enzymatic activity/volume] in Serum or PlasmaOrdered By: Latrice Sepulveda on 06-06-2023 AST [Catalytic activity/Vol] 16 U/L 13-39 [facility] Bilirubin.total [Mass/volume ] in Serum or PlasmaOrdered By: Latrice Sepulveda on 06-06-2023 Bilirubin [Mass/Vol] 0.3 mg/dL 0.3-1.0 [facility] Calcium [Mass/volume] in Ser um or PlasmaOrdered By: Latrice Sepulveda on 06-06-2023 Calcium [Mass/Vol] 8.6 mg/dL 8.6-10.3 [facility] Carbon dioxide, total [Moles /volume] in Serum or PlasmaOrdered By: Latrice Sepulveda on 06-06-2023 CO2 [Moles/Vol] 24.8 mmol/L 21.0-31.0 [facility] Chloride [Moles/volume] in S gris or PlasmaOrdered By: Latrice Sepulveda on 06-06-2023 Chloride [Moles/Vol] 107 mmol/L 98-107 [facility] Comprehensive Metabolic Pane mauricio 06-06-2023 Albumin [Mass/Vol] 3.5 g/dL Normal 3.5-5.7 [facility] Comment on above: Performed By: #### H CGQNT #### [facility] [address] Albumin/Globulin [Mass ratio] 1.5 {ratio} Normal [facility] Comment on above: Performed By: #### H CGQNT #### [facility] [address] ALP [Catalytic activity/Vol] 84 U/L Normal 34-104 [facility] Comment on above: Performed By: #### H CGQNT #### [facility] [address] ALT [Catalytic activity/Vol] 19 U/L Normal 7-52 [facility] Comment on above: Performed By: #### H CGQNT #### [facility] [address] Anion gap [Moles/Vol] 9.9 mmol/L Normal 6.0-15.0 [facility] Comment on above: Performed By: #### H CGQNT #### [facility] [address] AST [Catalytic activity/Vol] 16 U/L Normal 13-39 [facility] Comment on above: Performed By: #### H CGQNT #### [facility] [address] [place] [address] [place] Bilirubin [Mass/Vol] 0.3 mg/dL Normal 0.3-1.0 [facility] Comment on above: Performed By: #### H CGQNT #### [facility] [address] [place] [address] [place] Calcium [Mass/Vol] 8.6 mg/dL Normal 8.6-10.3 [facility] Comment on above: Performed By: #### H CGQNT #### [facility] [address] [place] [address] [place] Chloride [Moles/Vol] 107 mmol/L Normal 98-107 [facility] Comment on above: Performed By: #### H CGQNT #### [facility] [address] CO2 [Moles/Vol] 24.8 mmol/L Normal 21.0-31.0 [facility] Comment on above: Performed By: #### H CGQNT #### [facility] [address] Creatinine [Mass/Vol] 0.45 mg/dL Low 0.60-1.20 [facility] Comment on above: Performed By: #### H CGQNT #### [facility] [address] [place] [address] [place] GFR/1.73 sq M.predicted MDRD (S/P/Bld) [Vol rate/Area] mL/min/{1.73_m2} Normal [facility] Comment on above: Performed By: #### H CGQNT #### [facility] [address] Globulin (S) [Mass/Vol] 2.4 g/dL Normal [facility] Comment on above: Performed By: #### H CGQNT #### [address] Glucose [Mass/Vol] 89 mg/dL Normal 70-100 [facility] Comment on above: Result Comment: [facility] Glucose Reference Range is dependent on time and content of last meal. Glucose of more than 200 mg/dL in a nonstressed, ambulatory subject supports the diagnosis of Diabetes Mellitus. ADA recommended reference range Performed By: #### H CGQNT #### [facility] [address] [place] [address] [place] Potassium [Moles/Vol] 3.7 mmol/L Normal 3.5-5.1 [facility] Comment on above: Performed By: #### H CGQNT #### [facility] [address] Protein [Mass/Vol] 5.9 g/dL Low 6.4-8.9 [facility] Comment on above: Performed By: #### H CGQNT #### [facility] [address] Sodium [Moles/Vol] 138 mmol/L Normal 136-145 [facility] Comment on above: Performed By: #### H CGQNT #### [facility] [address] Urea nitrogen [Mass/Vol] 5 mg/dL Low 7-25 [facility] Comment on above: Performed By: #### H CGQNT #### [facility] [address] Creatinine [Mass/volume] in Serum or PlasmaOrdered By: Latrice Sepulveda on 06-06-2023 Creatinine [Mass/Vol] 0.45 mg/dL 0.60-1.20 [facility] Globulin Calc (S) [Mass/Vol] Ordered By: Latrice Sepulveda on 06-06-2023 Globulin (S) [Mass/Vol] 2.4 g/dL [facility] Glucose [Mass/volume] in Ser um or PlasmaOrdered By: Latrice Sepulveda on 06-06-2023 Glucose [Mass/Vol] 89 mg/dL 70-100 [facility] Comment on above: ADA recommended refe rence rangeRandom Glucose Reference Range is dependent on time and content of last meal. Glucose of more than 200 mg/dL in a nonstressed, ambulatory subject supports the diagnosis of Diabetes Mellitus. No Panel InformationOrdered By: Latrice Sepulveda on 06-06-2023 Estimated GFR (CKD-EPI) > 60.0 mL/Min [facility] Creatinine Clearance (Chem N/A [facility] Parathyrin.intact [Mass/volu me] in Serum or PlasmaOrdered By: Latrice Sepulveda on 06-06-2023 Parathyrin.intact [Mass/Vol] 45.8 pg/mL [facility] Parathyroid Hormone Intacton 06-06-2023 Parathyroid Hormone Intact 45.8 pg/mL Normal [facility] Comment on above: Result Comment: PERF ORMED BY: [place] [address] PATHOLOGIST PIN STICKER JERRY CASTRO M.D. Performed By: #### P TH, CMP, [id number] #### [facility] [address] #### [id number] #### [facility] , Potassium [Moles/volume] in Serum or PlasmaOrdered By: Latrice Sepulveda on 06-06-2023 Potassium [Moles/Vol] 3.7 mmol/L 3.5-5.1 [facility] Protein [Mass/volume] in Ser um or PlasmaOrdered By: Latrice Sepulveda on 06-06-2023 Protein [Mass/Vol] 5.9 g/dL 6.4-8.9 [facility] Serum or plasma albumin/glob ulin mass ratioOrdered By: Latrice Sepulveda on 06-06-2023 Albumin/Globulin [Mass ratio] 1.5 {ratio} [facility] Serum or plasma anion gap de terminationOrdered By: Latrice Sepulveda on 06-06-2023 Anion gap [Moles/Vol] 9.9 mmol/L 6.0-15.0 [facility] Serum or plasma calcitriol m easurement (mass/volume)Ordered By: Latrice Sepulveda on 06-06-2023 1,25-dihydroxyvitamin D3 [Mass/Vol] 123.0 pg/mL 24.8-81.5 [facility] Comment on above: Performed at: [address] [id number] Director: Dinora Alvarenga MD, Phone: [phone] Sodium [Moles/volume] in Ser um or PlasmaOrdered By: Latrice Sepulveda on 06-06-2023 Sodium [Moles/Vol] 138 mmol/L 136-145 [facility] Urea nitrogen [Mass/volume] in Serum or PlasmaOrdered By: Latrice Sepulveda on 06-06-2023 Urea nitrogen [Mass/Vol] 5 mg/dL 7-25 [facility] Vitamin D 25 Hydroxy Totalon 06-06-2023 Vitamin D 25 Hydroxy Total 22.4 ng/mL Low 30-100 [facility] Comment on above: Result Comment: HARVINDER MIN D STATUS 25(OH)VITAMIN D RANGE (ng/mL) Deficient <20 Insufficient 20 to <30 Sufficient 30 to 100 Reference: Lino Pena, Gildardo MARTELL, et al. Evaluation,treatment, and prevention of vitamin D deficiency; an Endocrine Society clinical practice guideline. JCEM. 2010; 96(7):1911-30. PERFORMED BY: [address] [address] PATHOLOGIST PIN STICKER JERRY CASTRO M.D. Performed By: #### H CGQNT #### [facility] [address] [place] [id number] [facility] Vitamin D+Metabolites [Mass/ volume] in Serum or PlasmaOrdered By: Latrice Sepulveda on 06-06-2023 Vitamin D+Metabolites [Mass/Vol] 22.4 ng/mL 30-100 [facility] Comment on above: VITAMIN D STATUS 25( OH)VITAMIN D RANGE (ng/mL) Deficient <20 Insufficient 20 to <30Sufficient 30 to 100Reference: Lino Pena, Gildardo MARTELL, et al. Evaluation,treatment, and prevention of vitamin D deficiency; an Endocrine Society clinical practice guideline. JCEM. 2010; 96(7):1911-30. Vitamin D 25 Hydroxy Totalon 05-06-2023 Vitamin D 25 Hydroxy Total 21.0 ng/mL Low 30-100 [facility] Comment on above: Order Comment: NON F ASTING Result Comment: HARVINDER MIN D STATUS 25(OH)VITAMIN D RANGE (ng/mL) Deficient <20 Insufficient 20 to <30 Sufficient 30 to 100 Reference: Lino Pena, Gildardo MARTELL, et al. Evaluation,treatment, and prevention of vitamin D deficiency; an Endocrine Society clinical practice guideline. JCEM. 2010; 96(7):1911-30. PERFORMED BY: [address] [place] [address] PATHOLOGIST PIN STICKER JERRY CASTRO M.D. Performed By: #### V [id number] #### [facility] [address] [place] [address] [place] Vitamin D+Metabolites [Mass/ volume] in Serum or PlasmaOrdered By: Page Magaña on 05-06-2023 Vitamin D+Metabolites [Mass/Vol] 21.0 ng/mL 30-100 [facility] Comment on above: VITAMIN D [...] 01-24-2023 ALT [Catalytic activity/Vol] 20 U/L 7-52 [facility] Albumin [Mass/volume] in Ser um or Plasma by Bromocresol green (BCG) dye binding methoOrdered By: Sarmad Luque on 01-24-2023 Albumin BCG dye [Mass/Vol] 4.7 g/dL 3.5-5.7 [facility] Alkaline phosphatase [Enzyma tic activity/volume] in Serum or PlasmaOrdered By: Sarmad Luque on 01-24-2023 ALP [Catalytic activity/Vol] 71 U/L 34-104 [facility] Aspartate aminotransferase [ Enzymatic activity/volume] in Serum or PlasmaOrdered By: Sarmad Luque on 01-24-2023 AST [Catalytic activity/Vol] 14 U/L 13-39 [facility] Automated erythrocytes count in urine sediment (number/area)Ordered By: aSrmad Luque on 01-24-2023 RBC Auto (Urine sed) [#/Area] 20-49 [HPF] 0-4 [facility] Automated leukocytes count i n urine sediment (number/area)Ordered By: Sarmad Luque on 01-24-2023 WBC Auto (Urine sed) [#/Area] 1-2 [HPF] 0-4 [facility] Basic Metabolic Panelon 01-07 Anion gap [Moles/Vol] 11.4 mmol/L Normal 6.0-15.0 [facility] Comment on above: Performed By: #### C BC, HEPATIC, BMP, LIPASE #### [facility] [address] [place] [address] [place] Calcium [Mass/Vol] 9.0 mg/dL Normal 8.6-10.3 [facility] Comment on above: Performed By: #### C BC, HEPATIC, BMP, LIPASE #### [facility] [address] [place] [address] [place] Chloride [Moles/Vol] 105 mmol/L Normal 98-107 [facility] Comment on above: Performed By: #### C BC, HEPATIC, BMP, LIPASE #### [facility] [address] CO2 [Moles/Vol] 25.0 mmol/L Normal 21.0-31.0 [facility] Comment on above: Performed By: #### C BC, HEPATIC, BMP, LIPASE #### [facility] [address] [place] [address] [place] Creatinine [Mass/Vol] 0.67 mg/dL Normal 0.60-1.20 [facility] Comment on above: Performed By: #### C BC, HEPATIC, BMP, LIPASE #### [facility] [address] [place] [address] [place] Creatinine Clr Calc Pharmacy 103.40 [facility] Comment on above: Performed By: #### C BC, HEPATIC, BMP, LIPASE #### [facility] [address] [place] [address] [place] GFR/1.73 sq M.predicted MDRD (S/P/Bld) [Vol rate/Area] mL/min/{1.73_m2} [facility] Comment on above: Performed By: #### C BC, HEPATIC, BMP, LIPASE #### [facility] [address] [place] [address] [place] Glucose [Mass/Vol] 89 mg/dL Normal 70-100 [facility] Comment on above: Result Comment: [place] Glucose Reference Range is dependent on time and content of last meal. Glucose of more than 200 mg/dL in a nonstressed, ambulatory subject supports the diagnosis of Diabetes Mellitus. ADA recommended reference range Performed By: #### C BC, HEPATIC, BMP, LIPASE #### [facility] [address] [place] [address] [place] Potassium [Moles/Vol] 3.4 mmol/L Low 3.5-5.1 [facility] Comment on above: Performed By: #### C BC, HEPATIC, BMP, LIPASE #### [facility] [address] Sodium [Moles/Vol] 138 mmol/L Normal 136-145 [facility] Comment on above: Performed By: #### C BC, HEPATIC, BMP, LIPASE #### [facility] [address] Urea nitrogen [Mass/Vol] 6 mg/dL Low 7-25 [facility] Comment on above: Performed By: #### C BC, HEPATIC, BMP, LIPASE #### [facility] [address] Basophils Auto (Bld) [#/Vol] Ordered By: Sarmad Luque on 01-24-2023 Basophils (Bld) [#/Vol] 0.1 10*3/uL 0.0-0.2 [facility] Basophils/100 WBC Auto (Bld) Ordered By: Sarmad Luque on 01-24-2023 Basophils/100 WBC (Bld) 0.8 % . F [facility] Bilirubin Test strip Ql (U)O rdered By: Sarmad Luque on 01-24-2023 Bilirubin Ql (U) Negative Negative [facility] Bilirubin.direct [Mass/volum e] in Serum or PlasmaOrdered By: Sarmad Luque on 01-24-2023 Bilirubin.direct [Mass/Vol] 0.20 mg/dL 0.03-0.18 [facility] Bilirubin.total [Mass/volume ] in Serum or PlasmaOrdered By: Sarmad Luque on 01-24-2023 Bilirubin [Mass/Vol] 0.9 mg/dL 0.3-1.0 [facility] Calcium [Mass/volume] in Ser um or PlasmaOrdered By: Sarmad Luque on 01-24-2023 Calcium [Mass/Vol] 9.0 mg/dL 8.6-10.3 [facility] Carbon dioxide, total [Moles /volume] in Serum or PlasmaOrdered By: Sarmad Luque on 01-24-2023 CO2 [Moles/Vol] 25.0 mmol/L 21.0-31.0 [facility] Chloride [Moles/volume] in S gris or PlasmaOrdered By: Sarmad Luque on 01-24-2023 Chloride [Moles/Vol] 105 mmol/L 98-107 [facility] Choriogonadotropin.beta subu nit [Units/volume] in Serum or PlasmaOrdered By: Sarmad Luque on 01-24-2023 HCG.beta subunit Qn 120.64 m[IU]/mL [facility] Comment on above: Approximate Approxim ate hCG Gestational Age Range (mIU/ml) (weeks)0.2-1 5-50 1-2 50-500 2-3 100-5,000 3-4 500-10,000 4-5 1,000-50,000 5-6 10,000-100,000 6-8 15,000-200,000 8-12 10,000-100,000 Color Auto (U)Ordered By: Eric Luque on 01-24-2023 Color (U) Yellow Yellow [facility] Complete Blood Count Auto Di ffon 01-24-2023 Basophils (Bld) [#/Vol] 0.1 10*3/uL Normal 0.0-0.2 [facility] Comment on above: Result Comment: PERF ORMED BY: [facility] [address] [place] [address] PATHOLOGIST PIN STICKER JERRY CASTRO M.D. Performed By: #### C BC, HEPATIC, BMP, LIPASE #### [facility] [address] [place] [address] [place] Basophils/100 WBC (Bld) 0.8 % Normal . F [facility] Comment on above: Performed By: #### C BC, HEPATIC, BMP, LIPASE #### [facility] [address] [place] [address] [place] Eosinophils (Bld) [#/Vol] 0.1 10*3/uL Normal 0.0-0.45 [facility] Comment on above: Performed By: #### C BC, HEPATIC, BMP, LIPASE #### [address] Eosinophils/100 WBC (Bld) 1.3 % Normal . [facility] Comment on above: Performed By: #### C BC, HEPATIC, BMP, LIPASE #### [address] Erythrocyte distribution width (RBC) [Ratio] 13.5 % Normal 11.9-15.3 [facility] Comment on above: Performed By: #### C BC, HEPATIC, BMP, LIPASE #### [address] Hematocrit (Bld) [Volume fraction] 41.4 % Normal 34.0-46.4 [facility] Comment on above: Performed By: #### C BC, HEPATIC, BMP, LIPASE #### [address] Hemoglobin (Bld) [Mass/Vol] 14.1 g/dL Normal 11.8-15.4 [facility] Comment on above: Performed By: #### C BC, HEPATIC, BMP, LIPASE #### [address] Lymphocytes (Bld) [#/Vol] 2.4 10*3/uL Normal 1.00-4.8 [facility] Comment on above: Performed By: #### C BC, HEPATIC, BMP, LIPASE #### [address] Lymphocytes/100 WBC (Bld) 31.9 % Normal . [facility] Comment on above: Performed By: #### C BC, HEPATIC, BMP, LIPASE #### [address] MCH (RBC) [Entitic mass] 28.8 pg Normal 24.7-34.3 [facility] Comment on above: Performed By: #### C BC, HEPATIC, BMP, LIPASE #### [address] MCV (RBC) [Entitic vol] 84.3 fL Normal 80-100 F [facility] Comment on above: Performed By: #### C BC, HEPATIC, BMP, LIPASE #### [facility] [address] Mean Corpuscular HGB Conc 34.1 g/dL Normal 32.0-35.0 [facility] Comment on above: Performed By: #### C BC, HEPATIC, BMP, LIPASE #### [address] Monocytes (Bld) [#/Vol] 0.5 10*3/uL Normal 0.0-0.8 [facility] Comment on above: Performed By: #### C BC, HEPATIC, BMP, LIPASE #### [address] Monocytes/100 WBC (Bld) 17.21 % Normal 0.00-20.00 F [facility] Comment on above: Performed By: #### C BC, HEPATIC, BMP, LIPASE #### [place] [address] [place] Monocytes/100 WBC (Bld) 7.3 % Normal . [facility] Comment on above: Performed By: #### C BC, HEPATIC, BMP, LIPASE #### [place] [address] [place] Neutrophils (Bld) [#/Vol] 4.3 10*3/uL Normal 1.8-7.7 [facility] Comment on above: Performed By: #### C BC, HEPATIC, BMP, LIPASE #### [place] [address] [place] Neutrophils/100 WBC (Bld) 58.7 % Normal . [facility] Comment on above: Performed By: #### C BC, HEPATIC, BMP, LIPASE #### [place] [address] [place] NRBC% 0.1 /100{WBC} Normal 0-0.5 [facility] Comment on above: Performed By: #### C BC, HEPATIC, BMP, LIPASE #### [facility] [address] Platelet mean volume (Bld) [Entitic vol] 9.2 fL Normal 6.3-10.7 [facility] Comment on above: Performed By: #### C BC, HEPATIC, BMP, LIPASE #### [facility] [address] Platelets (Bld) [#/Vol] 222 10*3/uL Normal 150-450 [facility] Comment on above: Performed By: #### C BC, HEPATIC, BMP, LIPASE #### [address] RBC (Bld) [#/Vol] 4.91 10*6/uL Normal 3.60-5.00 [facility] Comment on above: Performed By: #### C BC, HEPATIC, BMP, LIPASE #### [address] WBC (Bld) [#/Vol] 7.4 10*3/uL Normal 3.8-11.6 [facility] Comment on above: Performed By: #### C BC, HEPATIC, BMP, LIPASE #### [address] Creatinine [Mass/volume] in Serum or PlasmaOrdered By: Sarmad Luque on 01-24-2023 Creatinine [Mass/Vol] 0.67 mg/dL 0.60-1.20 [facility] Dipstick and Microscopicon 0 01-24-2023 Appearance (U) Cloudy Critically abnormal Clear [facility] Comment on above: Order Comment: Name Collection Type:: Clean-Voided Midstream Performed By: #### U HCG, ADDONUAPLUS #### [facility] [address] [place] [address] Bacteria,Urine None Seen Normal None Seen [facility] Comment on above: Order Comment: Name Collection Type:: Clean-Voided Midstream Performed By: #### U HCG, ADDONUAPLUS #### [address] Bilirubin,Urine Negative Normal Negative [facility] Comment on above: Order Comment: Name Collection Type:: Clean-Voided Midstream Performed By: #### U HCG, ADDONUAPLUS #### [facility] [address] [place] [address] [place] Color (U) Yellow Normal Yellow [facility] Comment on above: Order Comment: Name Collection Type:: Clean-Voided Midstream Performed By: #### U HCG, ADDONUAPLUS #### [facility] [address] [place] [address] [place] Glucose Ql (U) Normal Normal Normal [facility] Comment on above: Order Comment: Name Collection Type:: Clean-Voided Midstream Performed By: #### U HCG, ADDONUAPLUS #### [facility] [address] [place] [address] [place] Hyaline Casts,Urine 0-8 Normal 0-8 [facility] Comment on above: Order Comment: Name Collection Type:: Clean-Voided Midstream Performed By: #### U HCG, ADDONUAPLUS #### [facility] [address] [place] [address] [place] Ketones Ql (U) Trace High Negative [facility] Comment on above: Order Comment: Name Collection Type:: Clean-Voided Midstream Performed By: #### U HCG, ADDONUAPLUS #### [facility] [address] [place] [address] [place] Leukocyte esterase Test strip Ql (U) 1+ High Negative [facility] Comment on above: Order Comment: Name Collection Type:: Clean-Voided Midstream Performed By: #### U HCG, ADDONUAPLUS #### [facility] [address] [place] [address] [place] Nitrite,Urine Negative Normal Negative [facility] Comment on above: Order Comment: Name Collection Type:: Clean-Voided Midstream Performed By: #### U HCG, ADDONUAPLUS #### [facility] [address] [place] [address] [place] Occult Blood,Urine 2+ High Negative [facility] Comment on above: Order Comment: Name Collection Type:: Clean-Voided Midstream Performed By: #### U HCG, ADDONUAPLUS #### [address] pH (U) 6.0 [pH] Normal 5.0-9.0 [facility] Comment on above: Order Comment: Name Collection Type:: Clean-Voided Midstream Performed By: #### U HCG, ADDONUAPLUS #### [address] Protein,Urine Trace High Negative [facility] Comment on above: Order Comment: Name Collection Type:: Clean-Voided Midstream Performed By: #### U HCG, ADDONUAPLUS #### [address] RBC,Urine 20-49 High 0-4 [facility] Comment on above: Order Comment: Name Collection Type:: Clean-Voided Midstream Performed By: #### U HCG, ADDONUAPLUS #### [address] Specificy [place],Urine 1.022 Normal 1.001-1.030 [facility] Comment on above: Order Comment: Name Collection Type:: Clean-Voided Midstream Performed By: #### U HCG, ADDONUAPLUS #### [address] Squamous Epithelial Cell,Urine 5-9 High 0-2 [facility] Comment on above: Order Comment: Name Collection Type:: Clean-Voided Midstream Performed By: #### U HCG, ADDONUAPLUS #### [address] Urobilinogen,Urine Normal Normal Normal [facility] Comment on above: Order Comment: Name Collection Type:: Clean-Voided Midstream Performed By: #### U HCG, ADDONUAPLUS #### [address] WBC,Urine 1-2 Normal 0-4 [facility] Comment on above: Order Comment: Name Collection Type:: Clean-Voided Midstream Performed By: #### U HCG, ADDONUAPLUS #### [facility] [address] [place] [id number] [facility] Eosinophils Auto (Bld) [#/Vo l]Ordered By: Sarmad Luque on 01-24-2023 Eosinophils (Bld) [#/Vol] 0.1 10*3/uL 0.0-0.45 [facility] Eosinophils/100 WBC Auto (Bl d)Ordered By: Sarmad Luque on 01-24-2023 Eosinophils/100 WBC (Bld) 1.3 % . [facility] Erythrocyte distribution wid th Auto (RBC) [Ratio]Ordered By: Sarmad Luque on 01-24-2023 Erythrocyte distribution width (RBC) [Ratio] 13.5 % 11.9-15.3 [facility] Globulin Calc (S) [Mass/Vol] Ordered By: Sarmad Luque on 01-24-2023 Globulin (S) [Mass/Vol] 2.7 g/dL [facility] Glucose [Mass/volume] in Ser um or PlasmaOrdered By: Sarmad Luque on 01-24-2023 Glucose [Mass/Vol] 89 mg/dL 70-100 [facility] Comment on above: ADA recommended refe rence rangeRandom Glucose Reference Range is dependent on time and content of last meal. Glucose of more than 200 mg/dL in a nonstressed, ambulatory subject supports the diagnosis of Diabetes Mellitus. HCG ( test) IAshane roque Ql (U)Ordered By: Sarmad Luque on 01-24-2023 HCG ( test) Ql (U) Positive [facility] HCG,Quantitativeon 3 HCG,Quantitative 120.64 m[iU]/mL Normal [facility] Comment on above: Result Comment: Appr oximate Approximate hCG Gestational Age Range (mIU/ml) (weeks) 0.2-1 5-50 1-2 50-500 2-3 100-5,000 3-4 500-10,000 4-5 1,000-50,000 5-6 10,000-100,000 6-8 15,000-200,000 8-12 10,000-100,000 PERFORMED BY: [facility] [address] [place] [id number] PATHOLOGIST PIN STICKER JERRY CASTRO M.D. Performed By: #### H CGQNT #### [address] HCG,Urineon 01-24-2023 Beta HCG ( test) Ql (U) Positive High [facility] Comment on above: Order Comment: Name Collection Type:: Clean-Voided Midstream Result Comment: PERF ORMED BY: [place] [address] PATHOLOGIST PIN STICKER JERRY CASTRO M.D. Performed By: #### U HCG, ADDONUAPLUS #### [address] Hematocrit Auto (Bld) [Volum e fraction]Ordered By: Sarmad Luque on 01-24-2023 Hematocrit (Bld) [Volume fraction] 41.4 % 34.0-46.4 [facility] Hemoglobin [Mass/volume] in BloodOrdered By: Sarmad Luque on 01-24-2023 Hemoglobin (Bld) [Mass/Vol] 14.1 g/dL 11.8-15.4 [facility] Hepatic Panelon 01-24-2023 Albumin [Mass/Vol] 4.7 g/dL Normal 3.5-5.7 [facility] Comment on above: Performed By: #### C BC, HEPATIC, BMP, LIPASE #### [address] Albumin/Globulin [Mass ratio] 1.7 {ratio} Normal [facility] Comment on above: Performed By: #### C BC, HEPATIC, BMP, LIPASE #### [facility] [address] [place] [address] ALP [Catalytic activity/Vol] 71 U/L Normal 34-104 [facility] Comment on above: Performed By: #### C BC, HEPATIC, BMP, LIPASE #### [address] ALT [Catalytic activity/Vol] 20 U/L Normal 7-52 [facility] Comment on above: Performed By: #### C BC, HEPATIC, BMP, LIPASE #### [facility] [address] AST [Catalytic activity/Vol] 14 U/L Normal 13-39 [facility] Comment on above: Performed By: #### C BC, HEPATIC, BMP, LIPASE #### [facility] [address] Bilirubin [Mass/Vol] 0.9 mg/dL Normal 0.3-1.0 [facility] Comment on above: Performed By: #### C BC, HEPATIC, BMP, LIPASE #### [facility] [address] Bilirubin,Indirect 0.7 mg/dL Normal [facility] Comment on above: Performed By: #### C BC, HEPATIC, BMP, LIPASE #### [facility] [address] Bilirubin.indirect [Mass/Vol] 0.20 mg/dL High 0.03-0.18 [facility] Comment on above: Performed By: #### C BC, HEPATIC, BMP, LIPASE #### [facility] [address] Globulin (S) [Mass/Vol] 2.7 g/dL Normal F [facility] Comment on above: Performed By: #### C BC, HEPATIC, BMP, LIPASE #### [facility] [address] Protein [Mass/Vol] 7.4 g/dL Normal 6.4-8.9 [facility] Comment on above: Performed By: #### C BC, HEPATIC, BMP, LIPASE #### [facility] [address] Ketones Auto test strip (U) [Mass/Vol]Ordered By: Sarmad Luque on 01-24-2023 Ketones (U) [Mass/Vol] Trace Negative [facility] - UrinalysisOrder ed By: Sarmad Luque on 01-24-2023 Hyaline casts LM Ql (Urine sed) 0-8 [LPF] 0-8 [facility] Leukocytes [#/volume] correc mague for nucleated erythrocytes in Blood by Automated counOrdered By: Sarmad Luque on 01-24-2023 WBC corrected for nucl RBC Auto (Bld) [#/Vol] 7.4 10*3/uL 3.8-11.6 [facility] Lipaseon 01-24-2023 Lipase [Catalytic activity/Vol] 47.0 U/L Normal 11.0-82.0 [facility] Comment on above: Result Comment: PERF ORMED BY: [place] [address] PATHOLOGIST PIN STICKER JERRY CASTRO M.D. Performed By: #### C BC, HEPATIC, BMP, LIPASE #### [address] Lipase [Enzymatic activity/v olume] in Serum or PlasmaOrdered By: Sarmad Luque on 01-24-2023 Lipase [Catalytic activity/Vol] 47.0 U/L 11.0-82.0 [facility] Lymphocytes Auto (Bld) [#/Vo l]Ordered By: Sarmad Luque on 01-24-2023 Lymphocytes (Bld) [#/Vol] 2.4 10*3/uL 1.00-4.8 [facility] Lymphocytes/100 WBC Auto (Bl d)Ordered By: Sarmad Luque on 01-24-2023 Lymphocytes/100 WBC (Bld) 31.9 % . [facility] MCH Auto (RBC) [Entitic mass ]Ordered By: Sarmad Luque on 01-24-2023 MCH (RBC) [Entitic mass] 28.8 pg 24.7-34.3 [facility] MCHC Auto (RBC) [Mass/Vol]Or dered By: Sarmad Luque on 01-24-2023 MCHC (RBC) [Mass/Vol] 34.1 g/dL 32.0-35.0 [facility] MCV Auto (RBC) [Entitic vol] Ordered By: Sarmad Luque on 01-24-2023 MCV (RBC) [Entitic vol] 84.3 fL 80-100 F [facility] Monocyte distribution width [Entitic volume] in Blood by AutomatedOrdered By: Sarmad Luque on 01-24-2023 Monocyte distribution width Auto (Bld) [Entitic vol] 17.21 % 0.00-20.00 [facility] Monocytes Auto (Bld) [#/Vol] Ordered By: Sarmad Luque on 01-24-2023 Monocytes (Bld) [#/Vol] 0.5 10*3/uL 0.0-0.8 [facility] Monocytes/100 WBC Auto (Bld) Ordered By: Sarmad Luque on 01-24-2023 Monocytes/100 WBC (Bld) 7.3 % . F [facility] Neutrophils Auto (Bld) [#/Vo l]Ordered By: Sarmad Luque on 01-24-2023 Neutrophils (Bld) [#/Vol] 4.3 10*3/uL 1.8-7.7 [facility] Neutrophils/100 WBC Auto (Bl d)Ordered By: Sarmad Luque on 01-24-2023 Neutrophils/100 WBC (Bld) 58.7 % . [facility] Nitrite Test strip Ql (U)Ord ered By: Sarmad Luque on 01-24-2023 Nitrite Ql (U) Negative Negative [facility] No Panel InformationOrdered By: Sarmad Luque on 01-24-2023 Estimated GFR (CKD-EPI) > 60.0 mL/Min [facility] Creatinine Clearance (Chem 103.40 [facility] Nucleated erythrocytes [Pres ence] in Blood by Automated countOrdered By: Sarmad Luque on 01-24-2023 Nucleated RBC Auto Ql (Bld) 0.1 /100{WBC} 0-0.5 [facility] Platelet mean volume Auto (B ld) [Entitic vol]Ordered By: Sarmad Luque on 01-24-2023 Platelet mean volume (Bld) [Entitic vol] 9.2 fL 6.3-10.7 [facility] Platelets Auto (Bld) [#/Vol] Ordered By: Sarmad Luque on 01-24-2023 Platelets (Bld) [#/Vol] 222 10*3/uL 150-450 [facility] Potassium [Moles/volume] in Serum or PlasmaOrdered By: Sarmad Luque on 01-24-2023 Potassium [Moles/Vol] 3.4 mmol/L 3.5-5.1 [facility] Protein Auto test strip (U) [Mass/Vol]Ordered By: Sarmad Luque on 01-24-2023 Protein (U) [Mass/Vol] Trace mg/dL Negative [facility] Protein [Mass/volume] in Ser um or PlasmaOrdered By: Sarmad Luque on 01-24-2023 Protein [Mass/Vol] 7.4 g/dL 6.4-8.9 [facility] RBC Auto (Bld) [#/Vol]Ordere d By: Sarmad Luque on 01-24-2023 RBC (Bld) [#/Vol] 4.91 10*6/uL 3.60-5.00 [facility] Serum or plasma albumin/glob ulin mass ratioOrdered By: Sarmad Luque on 01-24-2023 Albumin/Globulin [Mass ratio] 1.7 {ratio} [facility] Serum or plasma anion gap de terminationOrdered By: Sarmad Luque on 01-24-2023 Anion gap [Moles/Vol] 11.4 mmol/L 6.0-15.0 Fi [facility] Serum or plasma non-glucuron idated bilirubin measurement (mass/volume)Ordered By: Sarmad Luque on 01-24-2023 Bilirubin.indirect [Mass/Vol] 0.7 mg/dL [facility] Sodium [Moles/volume] in Ser um or PlasmaOrdered By: Sarmad Luque on 01-24-2023 Sodium [Moles/Vol] 138 mmol/L 136-145 [facility] Specific gravity Auto test s trip (U) [Rel density]Ordered By: Sarmad Luque on 01-24-2023 Specific gravity (U) [Rel density] 1.022 1.001-1.030 [facility] Squamous epithelial cells de tection in urine sediment by light microscopyOrdered By: Sarmad Luque on 01-24-2023 Epithelial cells.squamous LM Ql (Urine sed) 5-9 [HPF] 0-2 [facility] US OB transvaginalon 023 OB transvaginal [address] [place] [address] Ultrasound Report Signed Patient: Elyssa Smith MR#: [id number] : 1990 Acct:[id number] Age/Sex: 32 / F ADM Date: 01/24/23 Loc: ER Room: Type: [facility] ER Attending Dr: Ordering Provider: Sarmad Luque DO Date of Service: 01/24/23 US/US OB <= 14 weeks fetus: Abdominal Pain ([id number]) US/US OB transvaginal: PAIN Copies to: Sarmad [...] MD 01/24/23 1401 Signed By: 01/24/23 1406 [facility] US renal BIon 01-24-2023 US renal BI [facility] [place] [address] Ultrasound Report Signed Patient: Elyssa Smith MR#: [id number] : 1990 Acct:[id number] Age/Sex: 32 / F ADM Date: 01/24/23 Loc: ER Room: Type: [facility] ER Attending Dr: Ordering Provider: [...] MD 01/24/23 1410 Signed By: 01/24/23 141 [facility] Urea nitrogen [Mass/volume] in Serum or PlasmaOrdered By: Sarmad Luque on 01-24-2023 Urea nitrogen [Mass/Vol] 6 mg/dL 7-25 [facility] Urine bacteria detection by automated methodOrdered By: Sarmad Luque on 01-24-2023 Bacteria Auto Ql (U) None seen None Seen [facility] Urine clarity by refractomet ry automatedOrdered By: Sarmad Luque on 01-24-2023 Clarity Refractometry automated (U) Cloudy Clear [facility] Urine glucose measurement by automated test strip (mass/volume)Ordered By: Sarmad Luque on 01-24-2023 Glucose Auto test strip (U) [Mass/Vol] Normal mg/dL Normal [facility] Urine hemoglobin detection b y automated test stripOrdered By: Sarmad Luque on 01-24-2023 Hemoglobin Auto test strip Ql (U) 2+ Negative [facility] Urine leukocyte esterase det ection by automated test stripOrdered By: Sarmad Luque on 01-24-2023 Leukocyte esterase Auto test strip Ql (U) 1+ Negative [facility] Urobilinogen Auto test strip (U) [Mass/Vol]Ordered By: Sarmad Luque on 01-24-2023 Urobilinogen (U) [Mass/Vol] Normal mg/dL Normal [facility] WBC Auto (Bld) [#/Vol]Ordere d By: Sarmad Luque on 01-24-2023 WBC (Bld) [#/Vol] 7.4 10*3/uL 3.8-11.6 [facility] pH Auto test strip (U)Ordere d By: Sarmad Luque on 01-24-2023 pH (U) 6.0 [pH] 5.0-9.0 [facility] ALFRED with Reflexon 10-27-2022 ALFRED with Reflex Negative Normal Negative [facility] Comment on above: Result Comment: Perf ormed at: CB - [facility] [address] [id number] [employer]: Ismael Suh PhD, Phone: [phone] PERFORMED BY: [address] [place] [address] PATHOLOGIST PIN STICKER JERRY CASTRO M.D. Performed By: #### H CGQNT #### [facility] [address] Alanine aminotransferase [En zymatic activity/volume] in Serum or PlasmaOrdered By: Page Magaña on 10-27-2022 ALT [Catalytic activity/Vol] 30 U/L 7-52 [facility] Albumin [Mass/volume] in Ser um or Plasma by Bromocresol green (BCG) dye binding methoOrdered By: Page Magaña on 10-27-2022 Albumin BCG dye [Mass/Vol] 4.2 g/dL 3.5-5.7 [facility] Alkaline phosphatase [Enzyma tic activity/volume] in Serum or PlasmaOrdered By: Page Magaña on 10-27-2022 ALP [Catalytic activity/Vol] 86 U/L 34-104 [facility] Aspartate aminotransferase [ Enzymatic activity/volume] in Serum or PlasmaOrdered By: Page Magaña on 10-27-2022 AST [Catalytic activity/Vol] 17 U/L 13-39 [facility] Basophils Auto (Bld) [#/Vol] Ordered By: Page Magaña on 10-27-2022 Basophils (Bld) [#/Vol] 0.1 10*3/uL 0.0-0.2 [facility] Basophils/100 WBC Auto (Bld) Ordered By: Page Magaña on 10-27-2022 Basophils/100 WBC (Bld) 0.6 % . F [facility] Bilirubin.total [Mass/volume ] in Serum or PlasmaOrdered By: Page Magaña on 10-27-2022 Bilirubin [Mass/Vol] 0.6 mg/dL 0.3-1.0 [facility] Calcium [Mass/volume] in Ser um or PlasmaOrdered By: Page Magaña on 10-27-2022 Calcium [Mass/Vol] 9.0 mg/dL 8.6-10.3 [facility] Carbon dioxide, total [Moles /volume] in Serum or PlasmaOrdered By: Page Magaña 10-27-2022 CO2 [Moles/Vol] 24.7 mmol/L 21.0-31.0 [facility] Chloride [Moles/volume] in S gris or PlasmaOrdered By: Page Magaña on 10-27-2022 Chloride [Moles/Vol] 107 mmol/L 98-107 [facility] Cholesterol [Mass/volume] in Serum or PlasmaOrdered By: Page Magaña on 10-27-2022 Cholesterol [Mass/Vol] 209 mg/dL 140-200 [facility] Comment on above: Chol less than 200 m g/dl low riskChol 201-239 mg/dl borderline riskChol 240 mg/dl and greater high risk Cholesterol in LDL Calc [Mas s/Vol]Ordered By: Page Magaña on 10-27-2022 Cholesterol in LDL [Mass/Vol] 155 mg/dL 0-100 [facility] Comment on above: LDL ATP III CLASSIFI CATIONLDL less than 100 mg/dL OptimalLDL 100-129 mg/dL Near or above optimalLDL 130-159 mg/dL Borderline highLDL 160-189 mg/dL HighLDL greater than 189 mg/dL Very high Cholesterol in VLDL Calc [Ma ss/Vol]Ordered By: Page Magaña on 10-27-2022 Cholesterol in VLDL [Mass/Vol] 11 mg/dL [facility] Complete Blood Count Auto Di ffon 10-27-2022 Basophils (Bld) [#/Vol] 0.1 10*3/uL Normal 0.0-0.2 [facility] Comment on above: Result Comment: PERF ORMED BY: [place] [address] PATHOLOGIST PIN STICKER JERRY CASTRO M.D. Performed By: #### H CGQNT #### [facility] [address] [place] [address] [place] Basophils/100 WBC (Bld) 0.6 % Normal . [facility] Comment on above: Performed By: #### H CGQNT #### [facility] [address] [place] [address] [place] Eosinophils (Bld) [#/Vol] 0.1 10*3/uL Normal 0.0-0.45 [facility] Comment on above: Performed By: #### H CGQNT #### [address] Eosinophils/100 WBC (Bld) 1.6 % Normal . [facility] Comment on above: Performed By: #### H CGQNT #### [address] Erythrocyte distribution width (RBC) [Ratio] 14.4 % Normal 11.9-15.3 [facility] Comment on above: Performed By: #### H CGQNT #### [address] Hematocrit (Bld) [Volume fraction] 40.5 % Normal 34.0-46.4 [facility] Comment on above: Performed By: #### H CGQNT #### [address] Hemoglobin (Bld) [Mass/Vol] 13.5 g/dL Normal 11.8-15.4 [facility] Comment on above: Performed By: #### H CGQNT #### [address] Lymphocytes (Bld) [#/Vol] 2.8 10*3/uL Normal 1.00-4.8 [facility] Comment on above: Performed By: #### H CGQNT #### [address] Lymphocytes/100 WBC (Bld) 30.3 % Normal . [facility] Comment on above: Performed By: #### H CGQNT #### [address] MCH (RBC) [Entitic mass] 28.1 pg Normal 24.7-34.3 [facility] Comment on above: Performed By: #### H CGQNT #### [address] MCV (RBC) [Entitic vol] 84.6 fL Normal 80-100 F [facility] Comment on above: Performed By: #### H CGQNT #### [address] Mean Corpuscular HGB Conc 33.3 g/dL Normal 32.0-35.0 [facility] Comment on above: Performed By: #### H CGQNT #### [address] Monocytes (Bld) [#/Vol] 0.6 10*3/uL Normal 0.0-0.8 [facility] Comment on above: Performed By: #### H CGQNT #### [address] Monocytes/100 WBC (Bld) 6.7 % Normal . F [facility] Comment on above: Performed By: #### H CGQNT #### [address] Neutrophils (Bld) [#/Vol] 5.5 10*3/uL Normal 1.8-7.7 [facility] Comment on above: Performed By: #### H CGQNT #### [address] Neutrophils/100 WBC (Bld) 60.8 % Normal . [facility] Comment on above: Performed By: #### H CGQNT #### [address] NRBC% 0.3 /100{WBC} Normal 0-0.5 [facility] Comment on above: Performed By: #### H CGQNT #### [address] Platelet mean volume (Bld) [Entitic vol] 8.9 fL Normal 6.3-10.7 [facility] Comment on above: Performed By: #### H CGQNT #### [facility] [address] [place] [address] Platelets (Bld) [#/Vol] 246 10*3/uL Normal 150-450 [facility] Comment on above: Performed By: #### H CGQNT #### [address] RBC (Bld) [#/Vol] 4.79 10*6/uL Normal 3.60-5.00 [facility] Comment on above: Performed By: #### H CGQNT #### [facility] [address] [place] [address] WBC (Bld) [#/Vol] 9.1 10*3/uL Normal 3.8-11.6 [facility] Comment on above: Performed By: #### H CGQNT #### [address] Comprehensive Metabolic Pane mauricio 10-27-2022 Albumin [Mass/Vol] 4.2 g/dL Normal 3.5-5.7 [facility] Comment on above: Order Comment: PT IS FASTING Performed By: #### H CGQNT #### [address] Albumin/Globulin [Mass ratio] 1.8 {ratio} Normal [facility] Comment on above: Order Comment: PT IS FASTING Performed By: #### H CGQNT #### [facility] [address] [place] [address] ALP [Catalytic activity/Vol] 86 U/L Normal 34-104 [facility] Comment on above: Order Comment: PT IS FASTING Performed By: #### H CGQNT #### [address] ALT [Catalytic activity/Vol] 30 U/L Normal 7-52 [facility] Comment on above: Order Comment: PT IS FASTING Performed By: #### H CGQNT #### [facility] [address] [place] [address] Anion gap [Moles/Vol] 10.6 mmol/L Normal 6.0-15.0 [facility] Comment on above: Order Comment: PT IS FASTING Performed By: #### H CGQNT #### [address] AST [Catalytic activity/Vol] 17 U/L Normal 13-39 [facility] Comment on above: Order Comment: PT IS FASTING Performed By: #### H CGQNT #### [facility] [address] Bilirubin [Mass/Vol] 0.6 mg/dL Normal 0.3-1.0 [facility] Comment on above: Order Comment: PT IS FASTING Performed By: #### H CGQNT #### [facility] [address] [place] [address] Calcium [Mass/Vol] 9.0 mg/dL Normal 8.6-10.3 [facility] Comment on above: Order Comment: PT IS FASTING Performed By: #### H CGQNT #### [facility] [address] [place] [address] Chloride [Moles/Vol] 107 mmol/L Normal 98-107 [facility] Comment on above: Order Comment: PT IS FASTING Performed By: #### H CGQNT #### [facility] [address] [place] [address] CO2 [Moles/Vol] 24.7 mmol/L Normal 21.0-31.0 [facility] Comment on above: Order Comment: PT IS FASTING Performed By: #### H CGQNT #### [facility] [address] [place] [address] Creatinine [Mass/Vol] 0.62 mg/dL Normal 0.60-1.20 [facility] Comment on above: Order Comment: PT IS FASTING Performed By: #### H CGQNT #### [facility] [address] [place] [address] [place] GFR/1.73 sq M.predicted MDRD (S/P/Bld) [Vol rate/Area] mL/min/{1.73_m2} Normal [facility] Comment on above: Order Comment: PT IS FASTING Performed By: #### H CGQNT #### [facility] [address] [place] [address] Globulin (S) [Mass/Vol] 2.3 g/dL Normal [facility] Comment on above: Order Comment: PT IS FASTING Performed By: #### H CGQNT #### [facility] [address] Glucose [Mass/Vol] 93 mg/dL Normal 70-100 [facility] Comment on above: Order Comment: PT IS FASTING Result Comment: [facility] Glucose Reference Range is dependent on time and content of last meal. Glucose of more than 200 mg/dL in a nonstressed, ambulatory subject supports the diagnosis of Diabetes Mellitus. ADA recommended reference range Performed By: #### H CGQNT #### [facility] [address] [place] [address] Potassium [Moles/Vol] 4.3 mmol/L Normal 3.5-5.1 [facility] Comment on above: Order Comment: PT IS FASTING Performed By: #### H CGQNT #### [facility] [address] [place] [address] Protein [Mass/Vol] 6.5 g/dL Normal 6.4-8.9 [facility] Comment on above: Order Comment: PT IS FASTING Performed By: #### H CGQNT #### [facility] [address] [place] [address] Sodium [Moles/Vol] 138 mmol/L Normal 136-145 [facility] Comment on above: Order Comment: PT IS FASTING Performed By: #### H CGQNT #### [facility] [address] [place] [address] [place] Urea nitrogen [Mass/Vol] 12 mg/dL Normal 7-25 [facility] Comment on above: Order Comment: PT IS FASTING Performed By: #### H CGQNT #### [facility] [address] [place] [address] [place] Creatinine [Mass/volume] in Serum or PlasmaOrdered By: Page Magaña on 10-27-2022 Creatinine [Mass/Vol] 0.62 mg/dL 0.60-1.20 [facility] Eosinophils Auto (Bld) [#/Vo l]Ordered By: Page Magaña on 10-27-2022 Eosinophils (Bld) [#/Vol] 0.1 10*3/uL 0.0-0.45 [facility] Eosinophils/100 WBC Auto (Bl d)Ordered By: Page Magaña on 10-27-2022 Eosinophils/100 WBC (Bld) 1.6 % . [facility] Erythrocyte distribution wid th Auto (RBC) [Ratio]Ordered By: Page Magaña on 10-27-2022 Erythrocyte distribution width (RBC) [Ratio] 14.4 % 11.9-15.3 [facility] Globulin Calc (S) [Mass/Vol] Ordered By: Page Magaña on 10-27-2022 Globulin (S) [Mass/Vol] 2.3 g/dL F [facility] Glucose [Mass/volume] in Ser um or PlasmaOrdered By: Page Magaña on 10-27-2022 Glucose [Mass/Vol] 93 mg/dL 70-100 [facility] Comment on above: ADA recommended refe rence rangeRandom Glucose Reference Range is dependent on time and content of last meal. Glucose of more than 200 mg/dL in a nonstressed, ambulatory subject supports the diagnosis of Diabetes Mellitus. Hematocrit Auto (Bld) [Volum e fraction]Ordered By: Page Magaña on 10-27-2022 Hematocrit (Bld) [Volume fraction] 40.5 % 34.0-46.4 [facility] Hemoglobin [Mass/volume] in BloodOrdered By: Page Magaña on 10-27-2022 Hemoglobin (Bld) [Mass/Vol] 13.5 g/dL 11.8-15.4 [facility] Leukocytes [#/volume] correc mague for nucleated erythrocytes in Blood by Automated counOrdered By: Page Magaña on 10-27-2022 WBC corrected for nucl RBC Auto (Bld) [#/Vol] 9.1 10*3/uL 3.8-11.6 [facility] Lipid Panelon 10-27-2022 Cholesterol [Mass/Vol] 209 mg/dL High 140-200 [facility] Comment on above: Order Comment: PT IS FASTING Result Comment: Chol less than 200 mg/dl low risk Chol 201-239 mg/dl borderline risk Chol 240 mg/dl and greater high risk Performed By: #### H CGQNT #### [facility] [address] Cholesterol in HDL [Mass/Vol] 43 mg/dL Normal 35-85 [facility] Comment on above: Order Comment: PT IS FASTING Result Comment: HDL CHOL ATP-III CLASSIFICATION Cardiovascular Risk HDL > or equal to 60 mg/dL LOW HDL < 40 mg/dL HIGH Performed By: #### H CGQNT #### [facility] [address] Cholesterol.total/Poonam sterol in HDL [Mass ratio] 4.9 {ratio} Normal <5.0 [facility] Comment on above: Order Comment: PT IS FASTING Performed By: #### H CGQNT #### [facility] [address] LDL Cholesterol,Calculated 155 mg/dL High 0-100 [facility] Comment on above: Order Comment: PT IS FASTING Result Comment: LDL ATP III CLASSIFICATION LDL less than 100 mg/dL Optimal LDL 100-129 mg/dL Near or above optimal LDL 130-159 mg/dL Borderline high LDL 160-189 mg/dL High LDL greater than 189 mg/dL Very high Performed By: #### H CGQNT #### [facility] [address] Triglyceride w/Reflex 55 mg/dL Normal 0-149 [facility] Comment on above: Order Comment: PT IS FASTING Result Comment: TRIG ATP III CLASSIFICATION TRIG less than 150 mg/dL Normal TRIG 150-199 mg/dL Borderline high TRIG 200-500 mg/dL High TRIG greater than 500 mg/dL Very high Standard traceable to the Center for Disease Conrtrol and Prevention (CDC) test method. Performed By: #### H CGQNT #### [facility] [address] VLDL CHOLESTEROL 11 mg/dL Normal [facility] Comment on above: Order Comment: PT IS FASTING Performed By: #### H CGQNT #### [facility] [address] [place] [address] [place] Lymphocytes Auto (Bld) [#/Vo l]Ordered By: Page Magaña on 10-27-2022 Lymphocytes (Bld) [#/Vol] 2.8 10*3/uL 1.00-4.8 [facility] Lymphocytes/100 WBC Auto (Bl d)Ordered By: Page Magaña on 10-27-2022 Lymphocytes/100 WBC (Bld) 30.3 % . [facility] MCH Auto (RBC) [Entitic mass ]Ordered By: Page Magaña on 10-27-2022 MCH (RBC) [Entitic mass] 28.1 pg 24.7-34.3 [facility] MCHC Auto (RBC) [Mass/Vol]Or dered By: Page Magaña on 10-27-2022 MCHC (RBC) [Mass/Vol] 33.3 g/dL 32.0-35.0 [facility] MCV Auto (RBC) [Entitic vol] Ordered By: Page Magaña on 10-27-2022 MCV (RBC) [Entitic vol] 84.6 fL 80-100 F [facility] Monocytes Auto (Bld) [#/Vol] Ordered By: Page Magaña on 10-27-2022 Monocytes (Bld) [#/Vol] 0.6 10*3/uL 0.0-0.8 [facility] Monocytes/100 WBC Auto (Bld) Ordered By: Page Magaña on 10-27-2022 Monocytes/100 WBC (Bld) 6.7 % . F [facility] Neutrophils Auto (Bld) [#/Vo l]Ordered By: Page Magaña on 10-27-2022 Neutrophils (Bld) [#/Vol] 5.5 10*3/uL 1.8-7.7 [facility] Neutrophils/100 WBC Auto (Bl d)Ordered By: Page Magaña on 10-27-2022 Neutrophils/100 WBC (Bld) 60.8 % . [facility] No Panel InformationOrdered By: Page Magaña on 10-27-2022 Estimated GFR (CKD-EPI) > 60.0 mL/Min [facility] Creatinine Clearance (Chem N/A [facility] Nucleated erythrocytes [Pres ence] in Blood by Automated countOrdered By: Page Magaña on 10-27-2022 Nucleated RBC Auto Ql (Bld) 0.3 /100{WBC} 0-0.5 [facility] Platelet mean volume Auto (B ld) [Entitic vol]Ordered By: Page Magaña on 10-27-2022 Platelet mean volume (Bld) [Entitic vol] 8.9 fL 6.3-10.7 [facility] Platelets Auto (Bld) [#/Vol] Ordered By: Page Magaña on 10-27-2022 Platelets (Bld) [#/Vol] 246 10*3/uL 150-450 [facility] Potassium [Moles/volume] in Serum or PlasmaOrdered By: Page Magaña on 10-27-2022 Potassium [Moles/Vol] 4.3 mmol/L 3.5-5.1 [facility] Protein [Mass/volume] in Ser um or PlasmaOrdered By: Page Magaña on 10-27-2022 Protein [Mass/Vol] 6.5 g/dL 6.4-8.9 [facility] RBC Auto (Bld) [#/Vol]Ordere d By: Page Magaña on 10-27-2022 RBC (Bld) [#/Vol] 4.79 10*6/uL 3.60-5.00 [facility] Rheumatoid Factoron 10-28-19 Rheumatoid Factor <10.0 Normal <14.0 [facility] Comment on above: Result Comment: Perf ormed at: CB - [facility] [place] [id number] [employer]: Ismael Suh PhD, Phone: [phone] Performed By: #### H CGQNT #### [facility] [address] [place] [address] Serum or plasma albumin/glob ulin mass ratioOrdered By: Page Magaña on 10-27-2022 Albumin/Globulin [Mass ratio] 1.8 {ratio} [facility] Serum or plasma anion gap de terminationOrdered By: Page Magaña on 10-27-2022 Anion gap [Moles/Vol] 10.6 mmol/L 6.0-15.0 [facility] Serum or plasma high density lipoprotein (HDL) cholesterol measurementOrdered By: Page Magaña on 10-27-2022 Cholesterol in HDL [Mass/Vol] 43 mg/dL 35-85 [facility] Comment on above: HDL CHOL ATP-III CLA SSIFICATION Cardiovascular RiskHDL > or equal to 60 mg/dL LOWHDL < 40 mg/dL HIGH Serum or plasma total choles terol/high density lipoprotein (HDL) cholesterol mass ratOrdered By: Page Magaña on 10-27-2022 Cholesterol.total/Poonam sterol in HDL [Mass ratio] 4.9 {ratio} <5.0 [facility] Sodium [Moles/volume] in Ser um or PlasmaOrdered By: Page Magaña on 10-27-2022 Sodium [Moles/Vol] 138 mmol/L 136-145 [facility] Thyroid Stim Hormone w/Rflxo n 10-27-2022 Thyroid Stim Hormone w/Rflx 0.76 u[iU]/mL Normal 0.45-5.33 [facility] Comment on above: Order Comment: PT IS FASTING Performed By: #### H CGQNT #### [facility] [address] [place] [address] Thyrotropin [Units/volume] i n Serum or PlasmaOrdered By: Page Magaña on 10-27-2022 TSH Qn 0.76 m[IU]/L 0.45-5.33 [facility] Triglyceride [Mass/volume] i n Serum or PlasmaOrdered By: Page Magaña on 10-27-2022 Triglyceride [Mass/Vol] 55 mg/dL 0-149 F [facility] Comment on above: TRIG ATP III CLASSIF ICATIONTRIG less than 150 mg/dL NormalTRIG 150-199 mg/dL Borderline highTRIG 200-500 mg/dL High TRIG greater than 500 mg/dL Very highStandard traceable to the Center for Disease Conrtrol and Prevention (CDC) test method. Urea nitrogen [Mass/volume] in Serum or PlasmaOrdered By: Page Magaña on 10-27-2022 Urea nitrogen [Mass/Vol] 12 mg/dL 7-25 [facility] Vitamin D 25 Hydroxy Totalon 10-27-2022 Vitamin D 25 Hydroxy Total 22.1 ng/mL Low 30-100 [facility] Comment on above: Order Comment: PT IS FASTING Result Comment: HARVINDER MIN D STATUS 25(OH)VITAMIN D RANGE (ng/mL) Deficient <20 Insufficient 20 to <30 Sufficient 30 to 100 Reference: Lino Pena, Gildardo MARTELL, et al. Evaluation,treatment, and prevention of vitamin D deficiency; an Endocrine Society clinical practice guideline. JCEM. 2010; 96(7):191-. PERFORMED BY: [facility] [address] [place] [address] PATHOLOGIST PIN STICKER JERRY CASTRO M.D. Performed By: #### H CGQNT #### [address] Vitamin D+Metabolites [Mass/ volume] in Serum or PlasmaOrdered By: Page Magaña on 10-27-2022 Vitamin D+Metabolites [Mass/Vol] 22.1 ng/mL 30-100 [facility] Comment on above: VITAMIN D STATUS 25( [place])VITAMIN D RANGE (ng/mL) Deficient <20 Insufficient 20 to <30Sufficient 30 to 100Reference: Lino Pena, Gildardo MARTELL, et al. Evaluation,treatment, and prevention of vitamin D deficiency; an Endocrine Society clinical practice guideline. JCEM. 2010; 96(7):191-. WBC Auto (Bld) [#/Vol]Ordere d By: Page Magaña on 10-27-2022 WBC (Bld) [#/Vol] 9.1 10*3/uL 3.8-11.6 [facility] Vital Signs Date Time Vital Sign Value Performing Clinician Facility 08-16-2023 13:25-0500 Body mass index (BMI) [Ratio] 33.94 kg/m2 [employer] Work Phone: [facility] 08-16-2023 13:25-0500 Body weight 78.83 kg [employer] Work Phone: [facility] 08-16-2023 13:25-0500 Diastolic blood pressure 78 mm[Hg] [employer] Work Phone: [facility] 08-16-2023 13:25-0500 Systolic blood pressure 122 mm[Hg] Edgar Rip DO Work Phone: [facility] 06-28-2023 05:30-0500 Body temperature 98.8 [degF] DO Sallie Magaña Work Phone: [facility] 06-28-2023 05:30-0500 Diastolic blood pressure 79 mm[Hg] DO Sallie Magaña Work Phone: [facility] 06-28-2023 05:30-0500 Heart rate 80 /min DO Sallie Magaña Work Phone: [facility] 06-28-2023 05:30-0500 Respiratory rate 20 /min DO Sallie Magaña Work Phone: [facility] 06-28-2023 05:30-0500 SaO2% (BldA) [Mass fraction] 98 % DO Sallie Magaña Work Phone: [facility] 06-28-2023 05:30-0500 Systolic blood pressure 121 mm[Hg] DO Sallie Magaña Work Phone: [facility] 06-26-2023 20:49-0500 Body height 152.4 cm DO Sallie Magaña Work Phone: [facility] 06-26-2023 20:49-0500 Body weight 74.38 kg DO Sallie Magaña Work Phone: [facility] 01-24-2023 13:44-0400 Diastolic blood pressure 73 mm[Hg] DO Sallie Magaña Work Phone: [facility] 01-24-2023 13:44-0400 Heart rate 104 /min DO Sallie Magaña Work Phone: [facility] 01-24-2023 13:44-0400 Respiratory rate 16 /min DO Sallie Magaña Work Phone: [facility] 01-24-2023 13:44-0400 SaO2% (BldA) [Mass fraction] 98 % DO Sallie Magaña Work Phone: [facility] 01-24-2023 13:44-0400 Systolic blood pressure 117 mm[Hg] DO Sallie Magaña Work Phone: [facility] 01-24-2023 10:11-0400 Body height 152.4 cm DO Sallie Magaña Work Phone: [facility] 01-24-2023 10:11-0400 Body temperature 98.5 [degF] DO Sallie Magaña Work Phone: [facility] 01-24-2023 10:11-0400 Body weight 67.58 kg DO Sallie Magaña Work Phone: [facility] 11-08-2022 15:30-0400 Body height 147.96 cm Hilario Reynolds Other [employer] Other 11-08-2022 15:30-0400 Body mass index (BMI) [Ratio] 34.23 kg/m2 Hilario Reynolds Other [employer] Other 11-08-2022 15:30-0400 Body weight 74.93 kg Hilario Reynolds Other [employer] Other 11-08-2022 15:30-0400 Diastolic blood pressure 90 mm[Hg] Hilario Reynolds Other [employer] Other 11-08-2022 15:30-0400 Respiratory rate 18 /min Hilario Reynolds Other [employer] Other 11-08-2022 15:30-0400 SaO2% (BldA) [Mass fraction] 97 % Hilario Reynolds Other [employer] Other 11-08-2022 15:30-0400 Systolic blood pressure 135 mm[Hg] Hilario Reynolds Other [facility] [employer] Other Encounters Encounter Date Encounter Type Care [...] Start: 08-15-2023 End: 08-15-2023 ambulatory Edgar Rip Facility:[facility] Start: 08-15-2023 End: 08-15-2023 ambulatory DO Sallie Magaña Work Phone: [facility] Work Phone: Start: 08-15-2023 End: 08-15-2023 Patient encounter procedure DO Sallie Aguila Owensmelany Work Phone: [facility] [place] Work Phone: Start: 08-04-2023 Telephone encounter Camila Gallego MD Work Phone: [facility] Start: 08-03-2023 End: 08-03-2023 ambulatory [facility] Start: 08-01-2023 End: 08-01-2023 ambulatory EDGAR RIP Not Available Start: 07-19-2023 End: 07-19-2023 ambulatory EDGAR RIP Not Available Start: 07-04-2023 End: 07-04-2023 ambulatory EDGAR RIP Not Available Start: 06-29-2023 ambulatory Alfredo LANDIN Facility:[facility] Start: 06-27-2023 End: 06-28-2023 ambulatory Alfredo LANDIN Facility:[id number] Start: 06-26-2023 End: 06-28-2023 ambulatory Emerald Martinez Facility:[facility] Start: 06-26-2023 End: 06-28-2023 Evaluation and management of inpatient DO Sallie Aguila Magaña Work Phone: [facility] Labor and Delivery Work Phone: Start: 06-26-2023 End: 06-28-2023 observation encounter DO Sallie Owensmelany Work Phone: [facility] Work Phone: Start: 06-06-2023 End: 06-06-2023 ambulatory Latrice Olmsteadmike Facility:[facility] Start: 06-06-2023 End: 06-06-2023 Patient encounter procedure DO Sallie Aguila Gracielamelany Work Phone: [facility] [place] Work Phone: Start: 05-29-2023 End: 05-29-2023 ambulatory BRANDON CAMARGO Not Available Start: 05-06-2023 End: 05-06-2023 ambulatory Sallie Magaña Facility:[facility] Start: 05-06-2023 End: 05-06-2023 ambulatory DO Sallie Aguila Magaña Work Phone: [facility] Work Phone: Start: 05-06-2023 End: 05-06-2023 Patient encounter procedure DO Sallie Aguila Magaña Work Phone: [facility] [place] Work Phone: Start: 01-24-2023 End: 01-24-2023 Emergency department patient visit DO Sallie Magaña Work Phone: [facility]-Emergency Room Work Phone: Start: 12-20-2022 End: 12-21-2022 ambulatory Sallie Magaña Facility:[facility] Start: 12-20-2022 Registered Recurring DO Sallie Magaña Work Phone: [facility]-Weight Management Work Phone: Start: 11-08-2022 End: 11-08-2022 ambulatory Hilario Reynolds Other [facility] [employer] Other Start: 11-08-2022 Nutrition therapy Hilario Hearddiff [facility] Start: 10-27-2022 End: 10-27-2022 ambulatory Sallie Magaña Facility:[facility] Start: 10-27-2022 End: 10-27-2022 ambulatory DO Sallie Magaña Work Phone: [facility] Work Phone: Start: 10-27-2022 End: 10-27-2022 Patient encounter procedure DO Sallie Magaña Work Phone: [facility] [place] Work Phone: Procedures Date Procedure Procedure Detail [...] 04-18-2028 Screening for malignant neoplasm of cervix [facility] Start: 03-10-2026 Screening for malignant neoplasm of cervix Pap Smear [facility] [employer] [facility] Start: 06-06-2024 Tobacco Screening Tobacco Screening [facility] Start: 06-05-2024 Adult BMI Screening Adult BMI Screening [facility] Start: 01-02-2024 ambulatory Ambulatory Facility:[facility] Start: 09-20-2023 End: 09-20-2023 Patient encounter procedure 09/20/2023 1:10 PM EDT Routine [facility] [address] [place] [address] [place] [address] Edgar Erwin, DO [address] [place] [address] [facility] Start: 09-13-2023 End: 09-13-2023 Patient encounter procedure 09/13/2023 1:10 PM EST Rout[facility] [address] [facility] [place] [address] Edgar Erwin, DO [address] [place] [address] [place] [address] [facility] Start: 09-11-2023 End: 09-11-2023 Professional / ancillary services management 09/11/2023 8:30 AM EST Ancillary Procedure [facility] [address] [facility] [id number] [facility] Start: 09-05-2023 End: 09-05-2023 Patient encounter procedure 09/05/2023 1:20 PM EST Routine [facility] [address] [facility] [place] [address] Edgar Erwin, [address] [place] [address] [facility] Start: 08-30-2023 End: 08-30-2023 Patient encounter procedure 08/30/2023 1:10 PM EST Routine [facility] [address] [facility] [place] [address] Edgar Erwin DO [address] [place] [address] [facility] Start: 08-15-2023 Bacteria identified in Urine by Culture [facility] Start: 06-28-2023 [facility] Start: 06-26-2023 Referral to urologist [facility] Start: 06-26-2023 Hospital admission [facility] Start: 03-10-2023 Influenza vaccination [facility] Start: 01-24-2023 Diagnostic ultrasound of gravid uterus [facility] Start: 01-24-2023 Ultrasonography of bilateral kidneys US renal BI [facility] Start: 01-24-2023 US Kidney - bilateral [facility] Start: 01-24-2023 Transvaginal obstetric ultrasonography [facility] Start: 2011 Screening for malignant neoplasm of cervix Pap Smear [facility] Start: 2009 DTaP,Tdap and Td Vaccines (1 - Tdap) DTaP,Tdap and Td Vaccines (1 - Tdap) [facility] Start: 2008 Adult BMI Follow Up Plan Adult BMI Follow Up Plan [facility] Start: 2002 Depression Screening Depression Screening [facility] Cefuroxime free [Mass/volume] in Serum or Plasma [facility] Patient Education [facility] Work Phone: Patient referral [facility] Work Phone: Rheumatoid factor [Units/volume] in Serum or Plasma [facility] Immunizations Immunization Date Immunization Notes Care Provider Fa [facility] 05-06-2020 influenza virus vaccine, unspecified formulation Camila Gallego MD Work Phone: [facility] Payers Date Payer Category Payer Self-pay [id number] 2016 Unknown [id number] 2016 Unknown [id number]. [id number] 1990 Unknown [id number] 2.16.840.1.131962.3.579.2. 727 1990 Unknown [id number] 2.16.840.1.835405.3.579.2. 1286 1990 Unknown [id number] 2.16.840.1.214136.3.579.2. 1259 1990 Unknown [id number] 2.16.840.1.278222.3.579.2. 1259 1990 Unknown [id number] 2.16.840.1.305256.3.579.2. 1259 1990 Unknown [id number] 2.16.840.1.008513.3.579.2. 1259 1990 Unknown [id number] 2.16.840.1.576499.3.579.2. 1259 1990 Unknown [id number] 2.16.840.1.334409.3.579.2. 1259 1990 Unknown [id number] 2.16.840.1.362311.3.579.2. 1259 [place] Ad[place] [id number] Private Health Insurance [facility] [id number] Unknown [id number] 2.840.1.320361.19 Unknown [id number] 2.840.1.533824.3.579.2. 531 Unknown [id number] 2.16840.1.965308.3.579.2. 531 Unknown [id number] 2.16840.1.164328.3.579.2. 531 Unknown [id number] 2.840.1.426726.3.579.2. 531 Unknown [id number] 2.16840.1.741800.3.579.2. 531 Unknown [id number] 2.16840.1.236600.3.579.2. 531 Unknown [id number] 2.840.1.537904.3.579.2. 531 Worker's Compensation [facility] [id number] Social History Date Type Detail Facility Start: 05-01-2020 End: 03-20-2023 Tobacco smoking status NHIS Never smoked tobacco (finding) [facility] Start: 1990 Sex Assigned At Female [facility] Start: 04-03-2023 End: 06-06-2023 Sex Assigned At [facility] [employer] Other Start: 06-06-2023 Alcohol intake Ex-drinker (finding) [facility] Start: 04-03-2023 End: 06-06-2023 History of Social function [facility] Childcare Unknown [facility] Start: 01-08-2023 [facility] Start: 1990 Sex Assigned At Not on file [facility] Start: 08-16-2023 Alcohol intake Lifetime non-d aurelia (finding) [facility] Start: 03-20-2023 Alcohol Comment caffeine: coffee [facility] NEGATED: Highlighted rowStart: NINF History of tobacco use Passive smoker [facility] Goals Date Patient Goal Desired Activity [...] nursing note reviewed. Exam conducted with a envelope addresser present. Vitals: Estimated body mass index is [...] Edgar Erwin DO documented in this encounter [facility] 08-04-2023 Miscellaneous Notes Called in left voice message in regards to question about placenta accreta. Sonographic assessment was not consistent with abnormal placentation. No signs of placenta accreta by ultrasound. If you have any further questions please do not hesitate to contact our office. CAMILA GALLEGO MD documented [facility] this encounter [facility] Telephone encounter Note Called in left voice message in regards to question about placenta accreta. Sonographic assessment was not consistent with abnormal placentation. No signs of placenta accreta by ultrasound. If you have any further questions please do not hesitate to contact our office. CAMILA GALLEGO MD [facility] Work Phone: 06-27-2023 Consult note Note Date/Time June 27, 2023 2:48pm [place] [address] Urology Consult Note Signed Patient: Elyssa Smith MR#: [id number] : 1990 Acct:[id number] Age/Sex: 33 / F Adm Date: 3 Loc: Room: [address] [place] [address] Type: ADM INOo Attending Dr: Emerald Martinez [...] P documented by Dr. Martinez earlier today [facility] Medical History (Updated 06/27/23 @ 07:15 [...] % (Auto) 87.1, Lymph % (Auto) 8.3, Andrews % (Auto) 4.2, Eos % (Auto)0.2, Baso % (Auto) 0.2, Nucleat RBC Rel Count 0.1, Neut # (Auto) 11.9 H, Lymph #(Auto) 1.1, Andrews # (Auto) 0.6, Eos # (Auto) 0.0, Baso # (Auto) 0.0 06/26/23 20:07: Fibronectin Negative 06/26/23 19:20: Urine Opiates Screen Negative, Ur Barbiturates Screen Negative, Ur Phencyclidine Scrn Negative, Ur Amphetamines Screen Negative, U Benzodiazepines Scrn Negative, Urine Cocaine Screen Negative 06/26/23 19:20: Urine Color Yellow, Urine Appearance Clear, Urine pH 6.5, Ur Specific [place] 1.009, Urine Protein Trace H, Urine Glucose [...] 1448 Signed By: <Electronically signed by MD Alfrdeo Landin> 06/27/23 1689 [facility] Work Phone: 1(115) 897-304812-19-2023 History and physical note Author Emerald Martinez [facility] June 27, 2023 7:16am Note Date/Time June 27, 2023 7:10am [facility] [address] [place] [address]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 OB [facility] Medical History (Updated 06/27/23 @ 07:15 [...] 50 mls @ 100 mls/hr IV Q8H [facility] Last Admin: 06/27/23 05:16 Dose: [...] % (Auto) 87.1, Lymph % (Auto) 8.3, Andrews % (Auto) 4.2, Eos % (Auto)0.2, Baso % (Auto) 0.2, Nucleat RBC Rel Count 0.1, Neut # (Auto) 11.9 H, Lymph #(Auto) 1.1, Andrews # (Auto) 0.6, Eos # (Auto) 0.0, Baso # (Auto) 0.0 06/26/23 20:07: Fibronectin Negative 06/26/23 19:20: Urine Opiates Screen Negative, Ur Barbiturates Screen Negative, Ur Phencyclidine Scrn Negative, Ur Amphetamines Screen Negative, U Benzodiazepines Scrn Negative, Urine Cocaine Screen Negative 06/26/23 19:20: Urine Color Yellow, Urine Appearance Clear, Urine pH 6.5, Ur Specific [place] 1.009, Urine Protein Trace H, Urine Glucose [...] currently. She does see Dr. Erwin in [place] for her care (2) Right kidney stone: Plan: Urology has been consulted- awaiting recommendations (3) Hydronephrosis, right: Plan: Urology has been consulted-awaiting recommendations Documented By: Emerald Martinez DO 06/27/23 07 06 Signed By: <Electronically signed by Emerald Martinez, > 06/27/23 0716 [facility] Work Phone: 1(283) 906-514405-02-2023 Evaluation note* Encounter Date Diagnosis Assessment Notes Treatment Notes Treatment Clinical Notes November, Abnormal weight gain (ICD-10 - R63.5) November, Mixed hyperlipidemia (ICD-10 - E78.2) November, Anxiety (ICD-10 - F41.9) November, Asthma (ICD-10 - J45.909) November, Kidney stones (ICD-1 0 - N20.0) [employer] Other evaluation noteNo assessment information available [facility] Work Phone: evaluation note* Diagnosis Onset Date Resolution Status 26 weeks gestation of acute Hydronephrosis, right acute Right kidney stone acute [facility] Work Phone: evaluation note* Diagnosis Onset Date Resolution Status 26 weeks gestation of acute Hydronephrosis, right acute Right kidney stone resolved [facility] Work Phone: Evaluation note* Diagnosis Third trimester state, incidental Hematuria, unspecified type documented in this encounter [facility] N[facility] - Reported* Type Description Date Medical History asthma Surgical History C section x 2 Surgical History kidney stones Surgical History IUD removed Hospitalization History see surgical hx [employer] Other Hospital Discharge instructions Additional Instructions Follow-up with your primary care doctor and OB-TALENT SPECIALIST Return to ED if you develop worsening symptoms [facility] Work Phone: Hospital Discharge instructions Additional Instructions Follow up with Dr. Villatoro 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 Signed Patient: Elyssa Smith MR#: [id number] : 1990 Acct:[id number] Age/Sex: 33 / F Adm Date: 3 Loc: Room: [address] [place] [address] Type: ADM INOo Attending Dr: Emerald Martinez [...] signed by MD KIKI BEAL> 06/28/23 0804 [facility] Work Phone: Chief Complaint [...] 2023 Edgar Erwin Attending Provider Active Start: [facility] 2023 End: August 15, 2023 [employer] Relationship Specialty Start Date End Date Jonah Magaña DO [address] [place] [address] PCP - Medical [place] [employer] 12/08/22 Jonah Magaña DO [address] [place] [address] PCP - General Family Medicine 11/15/22 Goals [...] DATE CREATED AUTHOR AUTHOR'S ORGANIZ ATION 08/18/2023 [facility] DATE CREATED AUTHOR AUTHOR'S ORGANIZ ATION 09/09/2023 [facility] dical Specialists EPIC FOR RECORDS PERTAINING [...] BE BASED ON THE PRIMARY CLINICAL RECORDS. [facility]. provides no warranty or guarantee of the accuracy or completeness of information in this document.
[2023-09-12] MEDS: 0.9 % SODIUM CHLORIDE 1,000 ML 1000 ML IV ×2 (06:15→06:48)
[2023-09-12 06:23] LABS: Basophils Percent Auto 0.2 % (0.2-2.0); Eosinophils Absolute Auto 0.1 10^3/uL (0.0-0.7); Eosinophils Percent Auto 0.8 % (0.9-7.0); Hematocrit 35.2 % (36.0-48.0); Hemoglobin 11.4 g/dL (12.0-16.0); Immature Granulocytes Abs Auto 0.12 10^3/uL (0.00-0.03); Immature Granulocytes Pct Auto 0.9 % (0.0-0.5); Lymphocytes Absolute Auto 2.5 10^3/uL (1.2-3.8); Lymphocytes Percent Auto 18.3 % (20.5-60.0); Mean Corpuscular HGB Conc 32.4 g/dL (29.9-35.2); Mean Corpuscular Hemoglobin 27.3 pg (26.7-34.0); Mean Corpuscular Volume 84.4 fL (81.0-99.0); Mean Platelet Volume 12.5 fL (9.5-13.5); Monocytes Absolute Auto 0.9 10^3/uL (0.3-0.8); Neutrophils Absolute Auto 9.8 10^3/uL (1.4-6.5); Neutrophils Percent Auto 72.8 % (43.0-75.0); Platelet Count 188 10^3/uL (150-450); Red Blood Count 4.17 10^6/uL (4.20-5.40); Red Cell Distribution Width 13.4 % (11.0-15.0); White Blood Count 13.5 10^3/uL (4.0-11.0)
[2023-09-12 06:42] LABS: Amphetamine Screen Urine NEGATIVE (NEGATIVE); Barbiturates Screen Urine NEGATIVE (NEGATIVE); Benzodiazepines Screen Urine NEGATIVE (NEGATIVE); Buprenorphine Screen Urine NEGATIVE (NEGATIVE); Cannabinoid Screen Urine NEGATIVE (NEGATIVE); Cocaine Screen Urine NEGATIVE (NEGATIVE); Methadone Screen Urine NEGATIVE (NEGATIVE); Methamphetamines Screen Urine NEGATIVE (NEGATIVE); Opiate Screen Urine NEGATIVE (NEGATIVE); Oxycodone Screen Urine NEGATIVE (NEGATIVE); Phencyclidine Screen Urine NEGATIVE (NEGATIVE); Tricyclic Antidepressant Urine NEGATIVE (NEGATIVE)
[2023-09-12] MEDS: CEFAZOLIN SODIUM/DEXTROSE,ISO 2 GM/50 ML PIGGYBACK IV ×2 (06:50→14:06)
[2023-09-12] MEDS: CITRIC ACID/SODIUM CITRATE 30 ML SOLUTION ORACIT SHOHL'S SOLN PO (07:19)
[2023-09-12] MEDS: METOCLOPRAMIDE HCL 10 MG/2 ML VIAL IVP (07:19)
[2023-09-12] MEDS: FAMOTIDINE/PF 20 MG/2 ML VIAL IV (07:19)
[2023-09-12] MEDS: LACTATED RINGER'S SOLUTION 1,000 ML 50 ML IV (08:37)
--- NOTE | 2023-09-12 08:52 | PM.ONB ---
Brief Operative Note Date of procedure: 09/12/23 Pre-op diagnosis: iup at 37 3/7wks, urological condition complication , kidney stone Post-op diagnosis: same as pre-op Procedure: NAME OF PROCEDURE: [ section with bilateral salpingectomy ] PROCEDURE: Patient was taken back to the Operating Room where she was given a spinal anesthesia with Duramorph without difficulty. She was prepped and draped in the normal sterile fashion. A Pfannenstiel skin incision was then made 2?cm above the symphysis pubis and carried down to underlying rectus fascia using a Bovie. The fascia was incised in the midline and extended laterally using Lange scissors. Two [place] clamps were placed on the superior aspect of the fascia and dissected off the underlying rectus muscles. The same was performed on the inferior aspect as well. The muscles were then in the midline. Peritoneum was identified and entered bluntly. The peritoneum was then extended superiorly and inferiorly with good visualization of the bladder. The bladder blade was inserted. Vesicouterine peritoneum was identified, tented up, and entered with Metzenbaum scissors. A bladder flap was then created digitally. The bladder blade was reinserted. A low transverse incision was made on the patient's uterus and extended laterally digitally. The was then delivered atraumatically after the bladder blade was removed in the cephalic position. The cord was clamped and cut. Cord blood was obtained. The infant was handed off to awaiting team. The patient's placenta was spontaneously delivered. The uterus was then exteriorized. The uterus was cleared of all clots and debris. The bladder blade was reinserted. The patient's uterine incision was closed using #0 Vicryl in a running lock fashion. Excellent hemostasis was assured.? The rt tube was identified and grasped with babock, the ligasure was used to transect and ligate the tube in its entirity, this was done on the contralateral side as well. The uterus was then returned to the patient's abdomen. The patient's abdomen was copiously irrigated using warm saline. Peritoneal gutters were cleared of all clots and debris. Again excellent hemostasis was assured. The patient's fascia was closed using #0 Vicryl in a running fashion. The patient's skin was closed using 4-0 Vicryl subcuticularly. The patient tolerated the procedure well. Sponge, lap, and needle counts were correct x2. The patient was taken to the Recovery Room in stable condition. Anesthesia: KELSEY Surgeon: Herson Erwin Financial Reporting Advisor: Eryn Corrales Estimated blood loss (mL): 600 Pathology: other (salpingectomy) Condition: stable Disposition: PACU Urinary Catheter Management Urinary Catheter Management Urethral: Cath placed during this visit: yes Urethral indwelling: No Insertion date: 09/12/23 Insertion time: 06:35
--- NOTE | 2023-09-12 08:55 | PM.OBPRCCS ---
Procedure Pre-op/Post-op diagnoses: Pre-Op/Post-Op Diagnoses Operation Date: 09/12/23 07:30 <No data on this case meets the specified criteria> Procedure: Procedures Operation Date: 09/12/23 07:30 Actual Procedure Side Surgeon p W/ BILATERAL TUBAL LIGATION Bilateral Herson Erwin DO Clinical Nurse Educator: Eryn Corrales Estimated blood loss (mL): 575 Disposition: PACU Anesthesia type: Spinal
[2023-09-12] MEDS: BUPIVACAINE LIPOSOME/PF 266 MG/13.3 ML VIAL INJ (09:10)
[2023-09-12] MEDS: 0.9 % SODIUM CHLORIDE 10 ML VIAL 30 ML INJ (09:10)
[2023-09-12] MEDS: BUPIVACAINE HCL 0.5% PF 50 MG/10 ML VIAL INJ (09:10)
--- NOTE | 2023-09-12 09:20 | PC.NURSE ---
0920 per order no fundal checks due to thin lower uterine segment
[2023-09-12] MEDS: OXYTOCIN/0.9 % SODIUM CHLORIDE 20 UNITS/1,000 ML PLAST..BAG 200 UNIT IV (09:30)
--- NOTE | 2023-09-12 09:51 | PC.NURSE ---
0928 Pt able to move bilat legs, small movements. Denies pain. Report given to Tommie GUTIERREZ
[2023-09-12] MEDS: KETOROLAC TROMETHAMINE 30 MG/ML VIAL IVP ×2 (14:07→20:38)
[2023-09-12] MEDS: ACETAMINOPHEN 500 MG TABLET 1000 MG PO (18:21)
--- NOTE | 2023-09-12 19:24 | W.PC.ACHO ---
Registration Status: ADM IN Primary Language: Tunisian Preferred Language: Tunisian Active Medications Generic Name Dose Route Start Last Admin Trade Name Colinq PRN Reason Stop Dose Admin Acetaminophen 1,000 mg 09/12/23 18:14 09/12/23 18:21 Acetaminophen 500 Mg Tablet PO 1,000 mg Q8H PRN Administration Breakthrough Pain Al Hydroxide/Mg Hydroxide 2,400 mg 09/12/23 08:49 Magnesium Hydroxide 2,400 Mg/10 Ml Oral.Susp PO Q6H PRN Dyspepsia Diphenhydramine HCl 25 mg 09/12/23 08:49 Diphenhydramine Hcl 50 Mg/Ml (1ml) Vial IV 09/13/23 08:50 Q6H PRN Itching Diphtheria/Pertussis/Tetanus Vacc 0.5 ml 09/14/23 09:00 Adacel Diph,Pertuss(Acell),Tet Vac/Pf 0.5 Ml Adult Syringe IM 09/14/23 09:01 .ONCE ONE Docusate Sodium 100 mg 09/13/23 09:00 Docusate Sodium 100 Mg Capsule PO BID NAY Sodium Chloride 1,000 mls @ 125 mls/hr 09/12/23 06:00 Sodium Chloride 0.9% 1,000 Ml IV .Q8H NAY Promethazine HCl 25 mg/ Sodium 51 mls @ 204 mls/hr 09/12/23 08:49 Chloride IV Q6H PRN Nausea And Vomiting Ibuprofen 800 mg 09/12/23 08:49 Ibuprofen 400 Mg Tablet PO Q8H PRN Pain Ketorolac Tromethamine 30 mg 09/12/23 10:06 09/12/23 14:07 Ketorolac Tromethamine 30 Mg/Ml Vial IVP 30 mg Q6H PRN Administration Pain Scale 4-6 Measles/Mumps/Rubella Vaccine Live 0.5 ml 09/14/23 09:00 Measles,Mumps,Rubella Vacc/Pf 0.5 Ml Vial SQ 09/14/23 09:01 .ONCE ONE Ondansetron HCl 4 mg 09/12/23 08:49 Ondansetron Pf 4 Mg/2 Ml Vial IV Q6H PRN Nausea And Vomiting Ondansetron HCl 4 mg 09/12/23 08:49 Ondansetron 4 Mg Rapdis Tablet PO Q6H PRN Nausea And Vomiting Oxycodone/Acetaminophen 1 tab 09/12/23 08:49 Oxycodone Hcl/Acetaminophen 5mg/325mg PO Q4H PRN Pain Scale 4-6 Oxycodone/Acetaminophen 2 tab 09/12/23 08:49 Oxycodone Hcl/Acetaminophen 5mg/325mg PO Q4H PRN Pain Scale 7-10 Senna 17.2 mg 09/12/23 20:00 Sennosides 8.6 Mg Tablet PO QHS PRN Constipation Simethicone 80 mg 09/12/23 08:49 Simethicone 80 Mg Tab.Chew PO QID PRN Abdominal Distention Diet Category Date Time Status Regular Consistency Diet Diet 09/12/23 08:49 Active Consults Category Date Time Status Consult to Anesthesiology Routine Cons 09/12/23 Ordered IV Insertion/Site Date of IV Line Insertion [20g 09/12/23 left Wrist] IV Insertion Time [20g left 06:10 Wrist] Neurology Patient orientation (short person,place,time,situation list) Respiratory Lung sounds [Bilateral clear Throughout] Lung sounds [Bilateral clear Throughout] Lung sounds [Bilateral clear Throughout] Pulse Oximetry 96 Pulse Oximetry 97 Pulse Oximetry 97 Pulse Oximetry 97 Pulse Oximetry 98 Pulse Oximetry 97 Pulse Oximetry 95 Pulse Oximetry 97 Pulse Oximetry 95 Oxygen Delivery Method Room Air Oxygen Delivery Method Room Air Oxygen Delivery Method Room Air Oxygen Delivery Method Room Air Oxygen Delivery Method Room Air Catheter Urinary Catheter Date of 09/12/23 Insertion [Urethral] Urinary Catheter Date of 09/12/23 Insertion [Urethral] Urinary Catheter Time of 06:35 Insertion [Urethral] Urinary Catheter Time of 06:35 Insertion [Urethral] Date Urinary Catheter Removed 09/12/23 [Urethral] Time Urinary Catheter 16:35 Discontinued [Urethral]
[2023-09-13] MEDS: KETOROLAC TROMETHAMINE 30 MG/ML VIAL IVP ×3 (02:32→18:42)
[2023-09-13 04:30] VITALS: BP 121/82; PULSE 98; RESP 16; TEMP 36.4; O2SAT 97
[2023-09-13 04:43] VITALS: BP 121/82; O2SAT 96
[2023-09-13 05:55] LABS: Basophils Percent Auto 0.1 % (0.2-2.0); Eosinophils Absolute Auto 0.1 10^3/uL (0.0-0.7); Eosinophils Percent Auto 0.6 % (0.9-7.0); Hemoglobin 8.5 g/dL (12.0-16.0); Immature Granulocytes Abs Auto 0.16 10^3/uL (0.00-0.03); Immature Granulocytes Pct Auto 1.1 % (0.0-0.5); Lymphocytes Absolute Auto 2.8 10^3/uL (1.2-3.8); Lymphocytes Percent Auto 19.4 % (20.5-60.0); Mean Corpuscular HGB Conc 31.5 g/dL (29.9-35.2); Mean Corpuscular Hemoglobin 26.9 pg (26.7-34.0); Mean Corpuscular Volume 85.4 fL (81.0-99.0); Mean Platelet Volume 12.1 fL (9.5-13.5); Monocytes Absolute Auto 1.1 10^3/uL (0.3-0.8); Monocytes Percent Auto 7.4 % (1.7-12.0); Neutrophils Absolute Auto 10.3 10^3/uL (1.4-6.5); Neutrophils Percent Auto 71.4 % (43.0-75.0); Platelet Count 162 10^3/uL (150-450); Red Blood Count 3.16 10^6/uL (4.20-5.40); Red Cell Distribution Width 13.6 % (11.0-15.0); White Blood Count 14.5 10^3/uL (4.0-11.0)
--- NOTE | 2023-09-13 07:38 | PM.OBPN ---
OB - PN: Subj Subjective Patient comments: no complaints and pain well controlled [place] status: doing well Exam Constitutional Vital Signs, click to edit/add: Last Vital Signs Temp 97.6 F 09/13/23 04:30 Pulse 98 H 09/13/23 04:30 Resp 16 09/13/23 04:30 BP 121/82 09/13/23 04:30 Pulse Ox 97 09/13/23 04:30 O2 Del Method Room Air 09/13/23 04:30 Documenting provider has reviewed patient's vital signs: yes Common normals: no apparent distress Respiratory Common normals: normal respiratory effort and clear to auscultation bilaterally Cardio Common normals: regular rate and regular rhythm GI Common normals: Normal to inspection, nondistended, normoactive bowel sounds present Extremity Common normals: no clubbing, cyanosis or edema and no calf tenderness Results Labs Labs: Short CBC 09/13/23 Range/Units 05:35 WBC 14.5 H (4.0-11.0) 10^3/uL Hgb 8.5 L (12.0-16.0) g/dL Hct 27.0 L (36.0-48.0) % Plt Count 162 (150-450) 10^3/uL Urinary Catheter Management Urinary Catheter Management Urethral: Cath placed during this visit: yes, but has since been removed by the nurse Urethral indwelling: No Insertion date: 09/12/23 Insertion time: 06:35 Removal date: 09/12/23 Removal time: 16:35 OB - PN: A/P Plan - day: 2 Plan: routine postop care, discharge home and follow up 6 weeks Time Spent with Patient Time: Total time spent is greater than 50% in coordination of care (as documented) at patient's floor/unit and/or counseling patient: Total time spent with greater than 50% in coordination of care (as documented) at patient's floor/unit and/or counseling patient: less than 15 minutes
[2023-09-13] MEDS: OXYCODONE HCL/ACETAMINOPHEN 5MG/325MG 2 TAB PO ×2 (08:05→15:03)
[2023-09-13 10:09] VITALS: BP 115/75; PULSE 82; RESP 16; TEMP 36.6
[2023-09-13] MEDS: DOCUSATE SODIUM 100 MG CAPSULE PO ×2 (10:11→21:29)
[2023-09-13 15:05] VITALS: BP 106/67; PULSE 86; RESP 16; TEMP 36.9
[2023-09-13 21:34] VITALS: BP 115/74; O2SAT 96
[2023-09-13] MEDS: OXYCODONE HCL/ACETAMINOPHEN 5MG/325MG 1 TAB PO (22:20)
[2023-09-14] VITALS: BP 115/74; PULSE 91; RESP 16; TEMP 36.7; O2SAT 96
[2023-09-14] MEDS: OXYCODONE HCL/ACETAMINOPHEN 5MG/325MG 1 TAB PO ×2 (03:07→08:09)
[2023-09-14] MEDS: IBUPROFEN 400 MG TABLET 800 MG PO (04:56)
--- NOTE | 2023-09-14 07:48 | PM.OBPN ---
OB - PN: Subj Subjective Patient comments: no complaints [place] status: doing well Exam Constitutional Vital Signs, click to edit/add: Last Vital Signs Temp 98.0 F 09/14/23 00:00 Pulse 91 H 09/14/23 00:00 Resp 16 09/14/23 00:00 BP 115/74 09/14/23 00:00 Pulse Ox 96 09/14/23 00:00 O2 Del Method Room Air 09/14/23 00:00 Documenting provider has reviewed patient's vital signs: yes Common normals: no apparent distress and oriented x3 HENMT Common normals: normocephalic Eye Common normals: EOMs intact bilaterally Neck & C-Spine Common normals: full ROM Lymph Lymphatic: no lymphadenopathy noted Chest Common normals: inspection of chest normal Respiratory Common normals: normal respiratory effort Auscultation: clear to auscultation bilaterally Cardio Common normals: regular rate and regular rhythm Rate: regular rate Rhythm: regular rhythm GI Common normals: Normal to inspection, nondistended, normoactive bowel sounds present Auscultation: normoactive bowel sounds Common normals: no CVA tenderness Back & Pelvis Common normals: no CVA tenderness Extremity Common normals: normal to inspection and full ROM Neuro Common normals: oriented x3 and moves all extremities Sensorium/orientation: awake, alert, oriented to person, oriented to place and oriented to time Urinary Catheter Management Urinary Catheter Management Urethral: Cath placed during this visit: yes, but has since been removed by the nurse Urethral indwelling: No Insertion date: 09/12/23 Insertion time: 06:35 Removal date: 09/12/23 Removal time: 16:35 OB - PN: A/P Plan - day: 2 Plan: routine postop care and discharge home Time Spent with Patient Time: Total time spent is greater than 50% in coordination of care (as documented) at patient's floor/unit and/or counseling patient: Total time spent with greater than 50% in coordination of care (as documented) at patient's floor/unit and/or counseling patient: less than 15 minutes
[2023-09-14 07:50] VITALS: RESP 14; TEMP 36.8
[2023-09-14 07:51] VITALS: BP 122/85
[2023-09-14] MEDS: DOCUSATE SODIUM 100 MG CAPSULE PO (08:09)
--- NOTE | 2023-09-14 08:40 | PC.NURSE ---
0750- No fundal checks per physicians orders d/t uterine window.
[2023-09-14] MEDS: OXYCODONE HCL/ACETAMINOPHEN 5MG/325MG 2 TAB PO (12:48)
--- NOTE | 2023-09-14 12:50 | DS_ITS ---
DISCHARGE DATE: ??09/14/2023 PRIMARY DIAGNOSES: 1.? Intrauterine at 37 and 3/7 weeks. 2.? Urological condition complicating . 3.? Kidney stone. PROCEDURE:? section with bilateral salpingectomy. HOSPITAL COURSE:? As expected.? Please see chart for full details.? LABORATORY DATA:? Please see chart. COMPLICATIONS:? None. DISCHARGE CONDITION:? Stable. CONSULTATION:? Anesthesia. DISCHARGE INSTRUCTIONS: 1.? Diet:? Regular. 2.? Medications: a.? Percocet 5/325 one to two p.o. every 4-6 hours p.r.n. pain. b.? Motrin 800 one p.o. every 8 hours p.r.n. pain. 3.? Followup in one week. Restrictions:? Pelvic rest for 6 weeks.? No heavy lifting.? May drive when pain free and no longer on narcotics. MTDD
== END 2023-09-14 12:50 | disposition home or self-care (01) | DRG 784 ==
PROVIDERS: Admitting Provider Obstetrics & Gynecology; Visit Provider Obstetrics & Gynecology
PROC: 10D00Z1 Extraction of Products of Conception, Low, Open Approach (ICD-10-PCS; CPT 59514; principal; 2023-09-12 07:30)
DX: O34.211 Maternal care for low transverse scar from previous cesarean delivery (principal); O26.833 Pregnancy related renal disease, third trimester; N20.0 Calculus of kidney; Z3A.37 37 weeks gestation of pregnancy; Z37.0 Single live birth; Z14.8 Genetic carrier of other disease; Z87.442 Personal history of urinary calculi
CPT/HCPCS: 36415; 51702; 64488; 80307; 85025; 86850; 86900; 86901; 88302; 94667; 96374; 96375; 96376; 99999; J1094

== ENCOUNTER 2023-09-19 08:30 | Outpatient (OUT) | payer OTHER, SELFPAY ==
--- NOTE | 2023-09-19 15:58 | PC.NURSE ---
Family arrives for follow up. Parents report adjusting well to to changes in family. Other children just love her and finally getting more rest at night. Elyssa states feels well, incision more uncomfortable than she remembers, but managed by Tylenol and Motrin. Mom states feels well otherwise. VSS and assessment WNL. BP higher than her normal, given s/s to watch for for elevated BP and when to report to PCP. Incision clear, no redness, edema or drainage noted. Steri strips loose. Nursing going well, no concerns voiced. Baby VSS and assessment WNL. Bili 12.1 on day 7. Feeding well every 1.5 - 3 hours and mother responds by nursing as demands. Couplet doing well no further concerns noted or voiced. Leaves ambulatory.
[2023-09-19 16:34] VITALS: BP 138/87; PULSE 84; RESP 16; TEMP 36.8; O2SAT 98
== END 2023-09-19 16:00 | disposition home or self-care (01) ==
LOC: FBCO 08:33
PROVIDERS: Visit Provider Obstetrics & Gynecology
DX: Z39.2 Encounter for routine postpartum follow-up (principal)